=== PATIENT | female | born 1955 | race Caucasian/White ===

== ENCOUNTER → 2017-08-13 | Outpatient (CLI) | payer MEDICARE ==
--- NOTE | 2017-08-15 11:33 | Diagnostic Imaging Report ---
EXAMINATION: Digital mammogram. INDICATION: Bilateral screening This study was compared to prior exams of 10/28/2012 and 11/07/2011. At this time there are no current complaints. The current study was also evaluated with a Computer Aided Detection (CAD) system. FINDINGS: The fibroglandular tissue in both breasts is heterogeneously dense. This does limit the sensitivity of this exam. Overall, there does not appear to have been any significant change when compared to the prior study. No primary or secondary sign of malignancy is noted. IMPRESSION: There is no radiographic evidence for malignancy. FINDINGS: Examination of the right and left calcanei fails to reveal evidence of fracture or other osseous abnormality. IMPRESSION: Negative right and left calcanei. The patient should have her annual bilateral screening mammogram on schedule in July of 2018. ACR BI-RADS Category 1: Negative. Result letter will be mailed to the patient. Note: At least 10% of breast cancer is not imaged by mammography. Dictated on workstation # [id number]
== END ==
LOC: RAD 08:05
PROVIDERS: ATTEND Family Medicine
DX: Z12.31 Encounter for screening mammogram for malignant neoplasm of breast (principal)
CPT/HCPCS: 77067

== ENCOUNTER → 2017-10-01 | Outpatient (CLI) | payer MEDICARE ==
--- NOTE | 2017-10-01 13:42 | Diagnostic Imaging Report ---
PROCEDURE: MRI lumbar spine. TECHNIQUE: Multiplanar, multisequence MRI of the lumbar spine was performed without contrast. INDICATION: Chronic low back pain. Comparison is made with prior MRI of the lumbar spine from 06/07/2015. FINDINGS: There is normal lumbar lordotic curvature. Minimal retrolisthesis of L1 on L2 is again noted. There is minimal anterolisthesis of L3 on L4 and L4 on L5, similar to prior exam. The vertebral body heights and marrow signal are unremarkable. No acute compression fracture or geographic marrow lesion is seen. There is multilevel degenerative disc disease with variable disc space narrowing and desiccation, most severe at the L2-L3 level where there is more significant disc space narrowing and desiccation. This has progressed since 2016. Conus appears to be stable at the T12-L1 level. T12-L1: No central canal or neuroforaminal stenosis is identified. L1-L2: Broad-based disc/osteophyte complex is present. The central canal remains widely patent. No significant neuroforaminal stenosis is identified. L2-L3: Significant ligamentous thickening and hypertrophic facet changes are noted. There is broad-based disc/osteophyte complex. The prominent asymmetric left posterolateral disc bulge is much less prominent on today's study. Degenerative changes do result in moderate trefoil stenosis to the canal. There is mild neuroforaminal narrowing on the left with bilateral recess narrowing noted. L3-L4: Significant ligamentous thickening and hypertrophic facet changes with broad-based disc/osteophyte complex is noted, resulting in significant trefoil stenosis of the canal. There is also significant bilateral lateral recess stenosis with moderate bilateral neuroforaminal stenosis. This is similar to prior exam. L4-L5: Hypertrophic facet changes and ligamentous thickening is present. No significant neuroforaminal stenosis is seen. There is some trefoil configuration of the thecal sac, similar to prior exam. L5-S1: Central canal is widely patent. The neuroforamina are widely patent. Paraspinous tissues are unremarkable. IMPRESSION: Significant multilevel lumbar spondylosis with multilevel central canal, lateral recess and neuroforaminal stenosis described level by level above. Prominent wide based disc bulge at the L2-L3 level on prior exam from 2016 is improved when compared with prior imaging. No acute compression fracture is detected. Dictated by: Dictated on workstation # [id number]
== END ==
LOC: RAD 12:33
PROVIDERS: ATTEND Orthopaedic Surgery
DX: M48.061 Spinal stenosis, lumbar region without neurogenic claudication (principal); M99.73 Connective tissue and disc stenosis of intervertebral foramina of lumbar region; M51.26 Other intervertebral disc displacement, lumbar region; M51.36 Other intervertebral disc degeneration, lumbar region; M47.816 Spondylosis without myelopathy or radiculopathy, lumbar region
CPT/HCPCS: 72148

== ENCOUNTER 2019-02-11 13:07 | Outpatient (RCR) | payer MEDICARE | END 2019-02-11 13:45 | disposition home or self-care (01) | PROVIDERS: ATTEND Orthopaedic Surgery | DX: M54.5 Low back pain (principal) ==

== ENCOUNTER → 2019-07-13 | Outpatient (CLI) | payer MEDICARE ==
--- NOTE | 2019-07-13 11:21 | Diagnostic Imaging Report ---
EXAMINATION: Digital mammogram bilateral screening with CAD. INDICATION: Screening. COMPARISON: This study was compared to the prior exams of 08/13/2017 and 10/28/2012. PERSONAL HISTORY: At this time, there are no current complaints. FINDINGS: There are scattered fibroglandular densities in both breasts which could obscure a lesion. Overall, there does not appear to have been any significant change when compared to the prior exam. No primary or secondary sign of malignancy is noted. IMPRESSION: There is no radiographic evidence for malignancy. ACR BI-RADS Category 1: Negative. Result letter will be mailed to the patient. Note: At least 10% of breast cancer is not imaged by mammography. Dictated by: Dictated on workstation # [id number]
== END ==
LOC: RAD 07:58
PROVIDERS: ATTEND Family Medicine
DX: Z12.31 Encounter for screening mammogram for malignant neoplasm of breast (principal)
CPT/HCPCS: 77067

== ENCOUNTER → 2019-07-27 | Outpatient (CLI) | payer MEDICARE | END | disposition home or self-care (01) | LOC: PREOP 05:38 | PROVIDERS: ATTEND Internal Medicine | DX: Z01.818 Encounter for other preprocedural examination (principal) ==

== ENCOUNTER 2019-09-20 08:30 | Outpatient (CLI) | payer MEDICARE ==
[~2019-09-20] VITALS: Ht 160 cm; Wt 90.0 kg
[2019-09-20] MEDS ORDERED: LISI1TAB29 PO (11:03)
[2019-09-20] MEDS ORDERED: HYDR-4342 PO (11:03)
[2019-09-20] MEDS ORDERED: ATOR20TA66 PO (11:03)
[2019-09-20] MEDS ORDERED: GABA-486 PO (11:03)
[2019-09-20] MEDS ORDERED: ESCI20TA45 PO (11:03)
[2019-09-20] MEDS ORDERED: MEMA10TA57 PO (11:03)
[2019-09-20] MEDS ORDERED: DICL75TA2 PO (11:03)
[2019-09-20] MEDS ORDERED: DONE10TA41 PO (11:03)
== END 2019-09-20 16:13 ==
LOC: PREOP 08:30
PROVIDERS: ATTEND Internal Medicine
DX: Z01.818 Encounter for other preprocedural examination (principal); Z11.59 Encounter for screening for other viral diseases
CPT/HCPCS: 87635

== ENCOUNTER 2019-09-24 07:59 | Day surgery (SDC) | payer MEDICARE ==
--- NOTE | 2019-07-26 01:27 | HISTORY AND PHYSICAL ---
DATE OF SERVICE: COLONOSCOPY H AND P HISTORY OF PRESENT ILLNESS: The patient is a 64-year-old white female referred by Dr. Jones for screening colonoscopy. She last underwent colonoscopy 10 years ago that revealed moderate diverticular disease, but no evidence for neoplasia. One previous colonoscopy prior to that did reveal evidence for two reported polyps. She reports that she has felt well in the interim, she has been diagnosed with Alzheimer dementia and came with a significant other today. She reports no melena or bright red blood per rectum. She denies bowel habit change or change in weight, energy level has been stable. She has had no surgery since I last saw her. She underwent total knee replacement in 2010, cholecystectomy in 1979, right shoulder surgery in 2009. She had mild diverticular disease. FAMILY HISTORY: Father in his 70s secondary to a stroke, had a history of hypertension, coronary artery disease as well as hyperlipidemia and depression. Mother had a history of type 2 diabetes mellitus and passed in her 80s. She is not aware of any family history for colon cancer except for one great-aunt as she recalls. She has a sister who is alive and well with no history of colon cancer or polyposis. PAST MEDICAL HISTORY: Other than dementia is significant for hyperlipidemia and hypertension with no known history of coronary artery disease. MEDICATIONS ON ADMISSION: Include Namenda 10 mg b.i.d., Lipitor 20 mg daily, Aricept 10 mg daily, diclofenac 75 mg 1 b.i.d. p.r.n. for joint pain, Gabapentin 100 mg at bedtime, lisinopril 10 mg daily and escitalopram 10 mg daily. REVIEW OF SYSTEMS: CONSTITUTIONAL: She denies change in weight, night sweats, chills or fever. CARDIOVASCULAR: She denies chest pain, orthopnea, PND, pedal edema. PULMONARY: She denies dyspnea on exertion, cough or wheeze. SOCIAL HISTORY: She is retired with a 30+ pack year smoking history, but quit over 10 years ago. She reports occasional alcohol consumption and no more than 2 drinks per month. PHYSICAL EXAMINATION: GENERAL: Reveals a pleasant white female, appears to be in no acute distress. VITAL SIGNS: Weight 198 pounds, is up 20 pounds from an office weight from 10 years ago. Blood pressure 118/72. HEENT: Unremarkable. Mallampati 1 pharyngeal configuration. CHEST: Clear. CV: Revealed a regular rate and rhythm without murmur, S3 or S4. ABDOMEN: Soft, supple without mass, organomegaly or tenderness. No bruits are noted. EXTREMITIES: Reveal no cyanosis, clubbing or edema. ASSESSMENT AND PLAN: The patient was set up for screening colonoscopy on 07/30/2019. Prep instructions and Suprep kit were given and questions were answered. I thank you for the referral of this pleasant lady. Job ID: [id number] DocumentID: [id number] Dictated Date: 07/21/2019 15:43:53 Nuclear Equipment Design Engineer Date: 07/21/2019 16:04:17 Dictated By: OPHELIA CLAYTON MD
--- NOTE | 2019-09-23 14:40 | HISTORY AND PHYSICAL ---
DATE OF SERVICE: COLONOSCOPY HISTORY AND PHYSICAL ADDENDUM HISTORY OF PRESENT ILLNESS: The patient is a 64-year-old white female referred by Dr. Jones for screening colonoscopy. She is deemed to be of average risk as she is not aware of any family history of colon cancer or colon polyps. She had to postpone her procedure from her initial visit on 07/20 due to COVID-19. She has rescheduled and reports no interval change in health. She denies chest pain or shortness of breath. There have been no medication changes and no blood thinner therapy. PHYSICAL EXAMINATION: GENERAL: Reveals a pleasant white female in no acute distress. VITAL SIGNS: Blood pressure 118/70. CHEST: Clear. CARDIOVASCULAR: Regular rate and rhythm without murmur, S3 or S4. ABDOMEN: Nontender. ASSESSMENT: The patient is set up for screening colonoscopy on 09/30. She has her prep instructions and prescription for a Suprep. No contraindications to proceeding with planned procedure. Job ID: [id number] DocumentID: [id number] Dictated Date: 09/23/2019 14:05:34 Strap Buckler Date: 09/23/2019 14:28:43 Dictated By: OPHELIA CLAYTON MD
[~2019-09-24] VITALS: Ht 160 cm; Wt 90.0 kg
[2019-09-24] VITALS (17 sets, daily range): BP systolic 107–174; BP diastolic 50–97
[~2019-09-24 07:59] MED LIST: ATOR20TA66 PO; DICL75TA2 PO; DONE10TA41 PO; ESCI20TA45 PO; GABA-486 PO; HYDR-4342 PO; LISI1TAB29 PO; MEMA10TA57 PO
[2019-09-24] MEDS ORDERED: D5 LR IV SOLUTION 1,000 ML IV ONE (08:01)
[2019-09-24] MEDS ORDERED: D5 LR IV SOLUTION 1,000 ML IV STA (08:09)
[2019-09-24] MEDS ORDERED: fentaNYL INJECTION 100 MCG/2 ML AMP IVP ONE (08:15)
[2019-09-24] MEDS ORDERED: LIDOCAINE JELLY 2% 6 ML SYRINGE MM PRN (08:15)
--- OUTSIDE RECORDS SUMMARY | 2019-09-24 08:34 | XMS REPORT | Clinical Summary ---
Author Author [facility] Organization [facility] Address Unknown Phone Unavailable Care Team Providers Care Certified Massage Therapist Name Role Phone PCP Unavailable Allergies Not on File Medications Not on file Active Problems Not on file Social History Date Tobacco Use Types Packs/Day Years Used Never Assessed Sex Assigned at Date Recorded Not on file Industry Job Start Date Occupation Not on file Not on file Not on file Travel End Travel History Travel Start No recent travel history available. Last Filed Vital Signs Not on file Plan of Treatment Not on file Results Not on filefrom Last 3 Months
--- OUTSIDE RECORDS SUMMARY | 2019-09-24 08:34 | XMS REPORT | Encounter Summary ---
Author Author [facility] Organization [facility] Address Unknown Phone Unavailable Care Team Providers Care Gravity Prospecting Operator Name Role Phone PCP Unavailable Encounter Details Care Team Description Date Type Department Kris Salazar MD Retired 06/07/1998 [facility] Encounter Social History Date Tobacco Use Types Packs/Day Years Used Never Assessed Sex Assigned at Date Recorded Not on file Industry Job Start Date Occupation Not on file Not on file Not on file Travel End Travel History Travel Start No recent travel history available. documented as of this encounter Plan of Treatment Not on filedocumented as of this encounter Visit Diagnoses Not on filedocumented in this encounter
--- OUTSIDE RECORDS SUMMARY | 2019-09-24 08:35 | XMS REPORT | CCD ---
Author Author Marjorie Jones Organization Tamara Jones MD, [facility] Address [address] [place] [address] Phone Care Team Providers Care Vet Tech Name Role Phone PP Unavailable CCM Unavailable Summary Purpose Interface Exchange Insurance Providers Payer name Policy type / Coverage type Covered alliance party ID Effective Begin Date Effective End Date [place] [employer] Medicare Part B [id number] Unknown [facility] icare Part B [id number] Un known Family history Mother Diagnosis Age At Onset Diabetes mellitus Type 2 Unknown Father Diagnosis Age At Onset Depression Unknown Hyperlipidemia Unknown Hypertension Unknown Stroke Unknown Coronary Artery Disease Unknown Social History Social History Element Codes Description Effective Dates Marital status Unknown M arried Walter 11/03/2014 Number of children Unknown 0 11/03/2014 Employment Unknown Curre ntly unemployed 11/03/[address]: 8826421 Quit over 10 years ago 199911/03/2014 Alcohol history Unknown occasionally drinks alcohol 2 per month 11/03/2014 Allergies, Adverse Reactions, Alerts Substance Reaction Codes Entered Date Inactivated Date Status * NO KNOWN DRUG DAVID RGIES Unknown 11/03/2014 No Inactive Date Active Past Medical History Illness Codes Condition Status Onset Date Resolved Date Actinic keratosis ICD-9: 701.1 ICD-10: L57.0 Active 10/21/2018 Unknown Essential (primary) hypertension ICD-9: 401.9 ICD-10: I10 Active 11/02/2014 Unknown Low back pain ICD-9: 724.2 ICD-10: M54.5 Active 10/11/2015 Unknown Pain in right hip ICD-9: 719.45 ICD-10: M25.551 Active 04/16/2016 Unknown Acute bronchitis, un specified ICD-9: 466.0 ICD-10: J20.9 Active 09/08/2018 Unknown Cough ICD-9: 786.2 ICD-10: R05 Active 02/18/2018 Unknown Essential (primary) hypertension ICD-9: 401.1 ICD-10: I10 Active 09/25/2016 Unknown Acute bronchitis due to other specified organisms ICD-9: 466.0 ICD-10: J20.8 Active 02/18/2018 Unknown Mixed hyperlipidemia ICD-9: 272.4 ICD-10: E78.2 Active 11/02/2014 Unknown Spinal stenosis, lum bosacral region ICD-9: 724.02 ICD-10: M48.07 Active 09/09/2017 Unknown Pain in left hip ICD-9: 719.45 ICD-10: M25.552 Active 12/05/2016 Unknown Sciatica, left side ICD- 9: 724.3 ICD-10: M54.32 Active 12/05/2016 Unknown Sacroiliitis, not el sewhere classified ICD-9: 720.2 ICD-10: M46.1 Active 12/05/2016 Unknown Actinic keratosis ICD-9: 702.0 ICD-10: L57.0 Active 10/22/2016 Unknown Encounter for screen ing mammogram for malignant neoplasm of breast ICD-9: V76.12 ICD-10: Z12.31 Active 09/25/2016 Unknown Major depressive dis order, recurrent, mild ICD-9: 296.31 ICD-10: F33.0 Active 04/17/2016 Unknown Mixed hyperlipidemia ICD-9: 272.2 ICD-10: E78.2 Active 09/25/2016 Unknown Major depressive dis order, recurrent, moderate ICD-9: 296.32 ICD-10: F33.1 Active 05/29/2016 Unknown Encounter for genera l adult medical examination with abnormal findings ICD-9: V70.0 ICD-10: Z00.01 Active 04/18/2016 Unknown Vitamin B12 deficien cy anemia, unspecified ICD-9: 281.1 ICD-10: D51.9 Active 07/10/2015 Unknown Sciatica Unknown Active 05/16/2015 Unknow n Sciatica, right side ICD-9: 724.3 ICD-10: M54.31 Active 05/15/2015 Unknown Hyperlipidemia Unknown Active 11/03/2014 Unknow n Hypertension Unknown Active 11/03/2014 Unknow n Osteoarthritis Unknown Active 11/03/2014 Unknow n ESSENTIAL HYPERTENSION ICD-9: 401.9 Active 11/02/2014 Unknown HYPERLIPIDEMIA ICD-9: 272.4 Active 11/02/2014 Unknown OSTEOARTH NOS-UNSPEC ICD-9: 715.90 Active 11/02/2014 Unknown Sacroiliitis ICD-9: 720.2 Active 11/02/2014 Unknown Problems Condition Codes Effectiv e Dates Condition Status Actinic keratosis ICD-9: 701.1 ICD-10: L57.0 10/21/2018 Active Essential (primary) hypertension ICD-9: 401.9 ICD-10: I10 11/02/2014 Active Low back pain ICD-9: 724.2 ICD-10: M54.5 10/11/2015 Active Pain in right hip ICD-9: 719.45 ICD-10: M25.551 04/16/2016 Active Acute bronchitis, un specified ICD-9: 466.0 ICD-10: J20.9 09/08/2018 Active Cough ICD-9: 786.2 ICD-10: R05 02/18/2018 Active Essential (primary) hypertension ICD-9: 401.1 ICD-10: I10 09/25/2016 Active Acute bronchitis due to other specified organisms ICD-9: 466.0 ICD-10: J20.8 02/18/2018 Active Mixed hyperlipidemia ICD-9: 272.4 ICD-10: E78.2 11/02/2014 Active Spinal stenosis, lum bosacral region ICD-9: 724.02 ICD-10: M48.07 09/09/2017 Active Pain in left hip ICD-9: 719.45 ICD-10: M25.552 12/05/2016 Active Sciatica, left side ICD- 9: 724.3 ICD-10: M54.32 12/05/2016 Active Sacroiliitis, not el sewhere classified ICD-9: 720.2 ICD-10: M46.1 12/05/2016 Active Actinic keratosis ICD-9: 702.0 ICD-10: L57.0 10/22/2016 Active Encounter for screen ing mammogram for malignant neoplasm of breast ICD-9: V76.12 ICD-10: Z12.31 09/25/2016 Active Major depressive dis order, recurrent, mild ICD-9: 296.31 ICD-10: F33.0 04/17/2016 Active Mixed hyperlipidemia ICD-9: 272.2 ICD-10: E78.2 09/25/2016 Active Major depressive dis order, recurrent, moderate ICD-9: 296.32 ICD-10: F33.1 05/29/2016 Active Encounter for genera l adult medical examination with abnormal findings ICD-9: V70.0 ICD-10: Z00.01 04/18/2016 Active Vitamin B12 deficien cy anemia, unspecified ICD-9: 281.1 ICD-10: D51.9 07/10/2015 Active Sciatica Unknown 05/16/2015 Active Sciatica, right side ICD-9: 724.3 ICD-10: M54.31 05/15/2015 Active Hyperlipidemia Unknown 11/03/2014 Active Hypertension Unknown 11/03/2014 Active Osteoarthritis Unknown 11/03/2014 Active ESSENTIAL HYPERTENSION ICD-9: 401.9 11/02/2014 Active HYPERLIPIDEMIA ICD-9: 272.4 11/02/2014 Active OSTEOARTH NOS-UNSPEC ICD-9: 715.90 11/02/2014 Active Sacroiliitis ICD-9: 720.2 11/02/2014 Active Medications Medication Codes Instruc tions Start Date Stop Date Sta tus Fill Instructions gabapentin 100 mg ca psule RxNorm: 603733 Capsule(s) TAKE 1 CAP LESLIE BY MOUTH ONCE DAILY IN THE MORNING 12/22/2018 No Stop Date Active gabapentin 100 mg ca psule RxNorm: 037731 TAKE 1 CAPSULE BY SCOTT TH ONCE DAILY IN THE MORNING 10/30/2018 12/21/2018 Inactive diclofenac sodium 75 mg tablet,delayed release RxNorm: 615593 TAKE 1 TABLET BY MOUT H TWICE DAILY 10/28/2018 No Stop Date Active Efudex 5 % topical c ream RxNorm: 931109 1 Application TOP BID apply from upper arm to wrist [id number], then change to other arm, then 10 days later do right leg then left leg 10/21/2018 11/19/2018 Inactive prednisone 20 mg tablet RxNorm: 481518 2 Tablet(s) PO daily 09/08/2018 09/12/2018 Inactive START TOMORROW 09/09 cefdinir 300 mg capsule RxNorm: 532958 1 Capsule(s) PO BID 09/08/2018 09/14/2018 Inactive START TOMORROW Ventolin HFA 90 mcg/ actuation aerosol inhaler RxNorm: 773761 2 Puff(s) INH Q4 PRN 09/08/2018 11/06/2018 In active Zithromax Z-Feng 250 mg tablet RxNorm: 381679 1 Tablet(s) PO UD 09/08/2018 09/12/2018 Inactive START TODAY ceftriaxone 500 mg s olution for injection RxNorm: 5799075 Inj 09/08/2018 09/08/2018 Inactive Kenalog 40 mg/mL christoph pension for injection RxNorm: 3916889 Milliliter(s) Inj 09/08/2018 09/08/2018 In active gabapentin 100 mg ca psule RxNorm: 707428 TAKE 1 CAPSULE BY SCOTT TH ONCE DAILY IN THE MORNING 08/10/2018 10/29/2018 Inactive lisinopril 10 mg-hyd rochlorothiazide 12.5 mg tablet RxNorm: 700961 TAKE 1 TABLET BY MOUTH ONCE DAILY 07/01/2018 No Stop Date Active hydrocodone 7.5 mg-a cetaminophen 325 mg tablet RxNorm: 871671 1 Tablet(s) PO TID 06/29/2018 07/28/2018 In active memantine 10 mg tablet RxNorm: 946522 1 Tablet(s) PO BID 06/18/2018 01/13/2019 Active Aricept 10 mg tablet RxNorm: 405899 1/2 tab daily x 2 weeks then increase to 1 Tablet(s) PO daily thereafter 06/18/2018 08/11/2019 Active escitalopram 10 mg t ablet RxNorm: 457163 TAKE ONE TABLET BY MO UT ONCE DAILY IN THE EVENING 06/18/2018 No Stop Date Active gabapentin 100 mg ca psule RxNorm: 370750 TAKE 1 CAPSULE BY SCOTT TH ONCE DAILY IN THE MORNING 06/11/2018 08/09/2018 Inactive Lipitor 20 mg tablet RxNorm: 843401 TAKE ONE TABLET BY MOUTH THREE TIMES [facility] 05/06/2018 No Stop Date Active hydrocodone 7.5 mg-a cetaminophen 325 mg tablet RxNorm: 135597 1 Tablet(s) PO TID 04/30/2018 05/29/2018 In active hydrocodone 7.5 mg-a cetaminophen 325 mg tablet RxNorm: 490324 1 Tablet(s) PO TID 03/26/2018 04/24/2018 In active Ventolin HFA 90 mcg/ actuation aerosol inhaler RxNorm: 668940 2 INH TID x 1 week th en twice daily x 5 days then as needed. 02/18/2018 04/18/2018 Inactive plea se give pt a spacer cefdinir 300 mg capsule RxNorm: 503085 1 Capsule(s) PO BID 02/18/2018 02/24/2018 Inactive prednisone 20 mg tablet RxNorm: 002852 2 Tablet(s) PO daily 02/18/2018 02/22/2018 Inactive memantine 10 mg tablet RxNorm: 218978 1/2 tab nightly x1wk then 1/2tab bid x1w k then 1/2tab am and 1tab hs x1wk then 1 Tablet(s) PO BID 01/08/2018 06/17/2018 Inactive hydrocodone 7.5 mg-a cetaminophen 325 mg tablet RxNorm: 314176 1 Tablet(s) PO TID 01/08/2018 02/06/2018 In active gabapentin 100 mg ca psule RxNorm: 117764 TAKE [address] [facility] ONCE DAILY IN THE MORNING 12/24/2017 06/10/2018 Inactive hydrocodone 7.5 mg-a cetaminophen 325 mg tablet RxNorm: 708133 1-2 Tablet(s) PO Q6 a s needed 12/01/2017 12/22/2017 Inactive diclofenac sodium 75 mg tablet,delayed release RxNorm: 273717 TAKE ONE TABLET BY [facility] TWICE DAILY 11/10/2017 10/27/2018 Inactive hydrocodone 7.5 mg-a cetaminophen 325 mg tablet RxNorm: 455937 1-2 Tablet(s) PO Q6 a s needed 10/17/2017 11/07/2017 Inactive hydrocodone 7.5 mg-a cetaminophen 325 mg tablet RxNorm: 527647 1-2 Tablet(s) PO Q6 a s needed 09/01/2017 09/22/2017 Inactive hydrocodone 7.5 mg-a cetaminophen 325 mg tablet RxNorm: 612219 1-2 Tablet(s) PO Q6 a s needed 08/25/2017 08/31/2017 Inactive hydrocodone 7.5 mg-a cetaminophen 325 mg tablet RxNorm: 676136 1-2 Tablet(s) PO Q6 a s needed 07/14/2017 08/04/2017 Inactive lisinopril 10 mg-hyd rochlorothiazide 12.5 mg tablet RxNorm: 618282 Tablet(s) TAKE ONE TABLET BY MOUTH ONCE DAILY 07/14/2017 06/30/2018 Inactive gabapentin 100 mg ca psule RxNorm: 337429 1 Capsule(s) PO QAM 06/23/2017 12/19/2017 Inactive hydrocodone 7.5 mg-a cetaminophen 325 mg tablet RxNorm: 618693 1-2 Tablet(s) PO Q6 a s needed 05/20/2017 06/10/2017 Inactive Lipitor 20 mg tablet RxNorm: 819433 1 Tablet(s) PO TIW 05/13/2017 05/05/2018 Inactive escitalopram 10 mg t ablet RxNorm: 036665 1 Tablet(s) PO QPM 05/13/2017 05/07/2018 Inactive escitalopram 10 mg t ablet RxNorm: 154582 1 Tablet(s) PO QPM 04/16/2017 05/12/2017 Inactive lisinopril 10 mg-hyd rochlorothiazide 12.5 mg tablet RxNorm: 859687 TAKE ONE TABLET BY MOUTH ONCE DAILY 04/15/2017 07/13/2017 Inactive escitalopram 10 mg t ablet RxNorm: 595558 1 Tablet(s) PO QPM 04/09/2017 04/15/2017 Inactive hydrocodone 7.5 mg-a cetaminophen 325 mg tablet RxNorm: 620168 1-2 Tablet(s) PO Q6 a s needed 03/17/2017 04/07/2017 Inactive hydrocodone 7.5 mg-a cetaminophen 325 mg tablet RxNorm: 392910 1-2 Tablet(s) PO Q6 a s needed 12/27/2016 01/17/2017 Inactive gabapentin 100 mg ca psule RxNorm: 449234 1 Capsule(s) PO QAM 12/16/2016 06/13/2017 Inactive prednisone 20 mg tablet RxNorm: 674155 2 Tablet(s) PO daily 12/06/2016 12/05/2016 Inactive prednisone 20 mg tablet RxNorm: 764347 2 Tablet(s) PO daily 12/06/2016 12/15/2016 Inactive Kenalog 40 mg/mL christoph pension for injection RxNorm: 8261301 1 Milliliter(s) Inj 12/05/2016 12/05/2016 In active diclofenac sodium 75 mg tablet,delayed release RxNorm: 950987 1 Tablet(s) PO BID 10/30/2016 10/24/2017 In active hydrocodone 7.5 mg-a cetaminophen 325 mg tablet RxNorm: 241575 1-2 Tablet(s) PO Q6 a s needed 10/23/2016 11/13/2016 Inactive hydrocodone 7.5 mg-a cetaminophen 325 mg tablet RxNorm: 903791 1-2 Tablet(s) PO Q6 a s needed 08/16/2016 09/06/2016 Inactive lisinopril 10 mg-hyd rochlorothiazide 12.5 mg tablet RxNorm: 917044 TAKE ONE TABLET BY MOUTH ONCE DAILY 06/07/2016 04/14/2017 Inactive Lipitor 40 mg tablet RxNorm: 696694 1 Tablet(s) PO TIW 05/31/2016 05/01/2017 Inactive Lipitor 20 mg tablet RxNorm: 899381 1 Tablet(s) PO TIW 05/29/2016 05/30/2016 Inactive hydrocodone 7.5 mg-a cetaminophen 325 mg tablet RxNorm: 520734 1-2 Tablet(s) PO Q6 a s needed 05/23/2016 06/13/2016 Inactive escitalopram 10 mg t ablet RxNorm: 205313 1 Tablet(s) PO QPM st art at 1/2 pill nightly x 1wk then a full pill thereafter 04/17/2016 04/08/2017 Inactive hydrocodone 7.5 mg-a cetaminophen 325 mg tablet RxNorm: 666871 1-2 Tablet(s) PO Q6 a s needed 02/28/2016 03/20/2016 Inactive hydrocodone 7.5 mg-a cetaminophen 325 mg tablet RxNorm: 827972 1-2 Tablet(s) PO Q6 a s needed 12/04/2015 12/25/2015 Inactive diclofenac sodium 75 mg tablet,delayed release RxNorm: 832579 1 Tablet(s) PO BID 10/23/2015 10/16/2016 In active hydrocodone 7.5 mg-a cetaminophen 325 mg tablet RxNorm: 270922 1-2 Tablet(s) PO Q6 a s needed 09/12/2015 12/03/2015 Inactive promethazine 25 mg t ablet RxNorm: 077788 1 Tablet(s) PO Q6 as needed 08/30/2015 No Stop Date Active lisinopril 10 mg-hyd rochlorothiazide 12.5 mg tablet RxNorm: 679357 1 Tablet(s) PO daily 05/09/2015 05/02/2016 Inactive hydrocodone 7.5 mg-a cetaminophen 325 mg tablet RxNorm: 592600 1-2 Tablet(s) PO Q6 a s needed 04/17/2015 09/11/2015 Inactive lisinopril 10 mg-hyd rochlorothiazide 12.5 mg tablet RxNorm: 186939 1 Tablet(s) PO daily 01/31/2015 05/08/2015 Inactive hydrocodone 7.5 mg-a cetaminophen 325 mg tablet RxNorm: 293834 1-2 Tablet(s) PO Q6 a s needed 01/18/2015 04/16/2015 Inactive diclofenac sodium 75 mg tablet,delayed release RxNorm: 535628 1 Tablet(s) PO BID 01/18/2015 10/14/2015 In active Voltaren 1 % topical gel RxNorm: 316279 4 Gram(s) TOP QID chelsie ly to sacroiliac joint 11/03/2014 05/15/2015 In active lisinopril 10 mg-hyd rochlorothiazide 12.5 mg tablet RxNorm: 367186 1 Tablet(s) PO daily 11/03/2014 12/02/2014 Inactive B-12 Plus sublingual RxNorm: 96136 sublingual No Start Date Active amoxicillin 500 mg c apsule RxNorm: 343624 4 Capsule(s) PO as do ctor directed 1 hours before appt No Start Date Active promethazine 25 mg t ablet RxNorm: 362931 1 Tablet(s) PO Q6 as needed No Start Date 08/29/2015 Inactive diclofenac sodium 75 mg tablet,delayed release RxNorm: 193486 1 Tablet(s) PO BID No Start Date 01/17/2015 Inactive hydrocodone 7.5 mg-a cetaminophen 325 mg tablet RxNorm: 869801 1-2 Tablet(s) PO Q6 a s needed No Start Date 01/17/2015 Inactive gabapentin 300 mg ca psule RxNorm: 695221 1 Capsule(s) PO QHS No Start Date 12/21/2018 Inactive Crestor 5 mg tablet RxNorm: 838642 1 Tablet(s) PO 3 x week No Start Date 05/28/2016 Inactive Medication Administered Medication Codes Instruc tions Start Date Status ceftriaxone 500 mg solution for injection RxNorm: 6860502 09/08/2018 No longer A ctive Kenalog 40 mg/mL suspension for injection RxNorm: 2959927 Milliliter 09/08/2018 No longer Active Kenalog 40 mg/mL suspension for injection RxNorm: 9245198 1Milliliter 12/05/2016 N o longer Active Immunizations No Immunization data Assessments Condition Codes Effectiv e Dates Essential (primary) hypertension ICD -10: I10 ICD-9: 401.9 10/21/2018 Actinic keratosis ICD-10: L57.0 ICD-9: 701.1 10/21/2018 Pain in right hip ICD-10: M25.551 ICD-9: 719.45 10/21/2018 Low back pain ICD-10: M54.5 ICD-9: 724.2 10/21/2018 Acute bronchitis, unspecified ICD-10 : J20.9 ICD-9: 466.0 09/08/2018 Cough ICD-10: R05 ICD-9: 786.2 09/08/2018 Essential (primary) hypertension ICD -10: I10 ICD-9: 401.1 06/18/2018 Acute bronchitis due to other specified organisms ICD-10: J20.8 ICD-9: 466.0 02/18/2018 Spinal stenosis, lumbosacral region ICD-10: M48.07 ICD-9: 724.02 01/08/2018 Mixed hyperlipidemia ICD-10: E78.2 ICD-9: 272.4 01/08/2018 Pain in left hip ICD-10: M25.552 ICD-9: 719.45 03/25/2017 Sciatica, left side ICD-10: M54.32 ICD-9: 724.3 12/16/2016 Sacroiliitis, not elsewhere classified ICD-10: M46.1 ICD-9: 720.2 12/05/2016 Actinic keratosis ICD-10: L57.0 ICD-9: 702.0 10/22/2016 Encounter for screening mammogram for ma lignant neoplasm of breast ICD-10: Z12.31 ICD-9: V76.12 09/25/2016 Major depressive disorder, recurrent, mild ICD-10: F33.0 ICD-9: 296.31 09/25/2016 Mixed hyperlipidemia ICD-10: E78.2 ICD-9: 272.2 09/25/2016 Major depressive disorder, recurrent, moderate ICD-10: F33.1 ICD-9: 296.32 05/29/2016 Encounter for general adult medical exam ination with abnormal findings ICD-10: Z00.01 ICD-9: V70.0 04/19/2016 Vitamin B12 deficiency anemia, unspecified ICD-10: D51.9 ICD-9: 281.1 07/11/2015 Sciatica, right side ICD-10: M54.31 ICD-9: 724.3 05/16/2015 ESSENTIAL HYPERTENSION ICD-9: 401.9 11/03/2014 Sacroiliitis ICD-9: 720.2 11/03/2014 HYPERLIPIDEMIA ICD-9: 272.4 11/03/2014 OSTEOARTH NOS-UNSPEC ICD-9: 715.90 11/03/2014 Reason For Visit Reason For Visit Effective Dates Notes hypertension 10/21/2018 cough 09/08/2018 hypertension 06/18/2018 cough 02/18/2018 hypertension 01/08/2018 hypertension 09/09/2017 hypertension 03/25/2017 sciatica 12/16/2016 ongo ing sciatica 12/05/2016 skin lesion 10/22/2016 hypertension 09/25/2016 hypertension 05/29/2016 Annual Medicare Wellness Exam 04/19/2016 hypertension 04/17/2016 back pain 10/12/2015 back pain 07/11/2015 back pain 05/16/2015 hypertension 11/03/2014 Results Observation Observation Code Item Item Code Result Date Comp Metabolic Rbi445 NA 140 mEq/L 01/14/2018 Comp Metabolic Oae504 K 3.8 mEq/L 01/14/2018 Comp Metabolic Ere079 CL 101 mEq/L 01/14/2018 Comp Metabolic Gbk225 CO2 30.0 mEq/L 01/14/2018 Comp Metabolic Cer417 AN ION GAP 13 01/14/2018 Comp Metabolic Yxi156 GL UCOSE 89 mg/dL 01/14/2018 Comp Metabolic Zwh097 Cr eat 1.0 mg/dL 01/14/2018 Comp Metabolic Fkv613 eG FR 63 ml/min/1.73m2 01/14 Comp Metabolic Akm322 BUN 16 mg/dL 01/14/2018 Comp Metabolic Rwo293 B/ C Ratio 16.8 Ratio 01/14/2018 Comp Metabolic Kbt025 CA LCIUM 9.2 mg/dL 01/14/2018 Comp Metabolic Pjk008 AL K PHOS 88 U/L 01/14/2018 Comp Metabolic Fxy109 T(SGOT) 13 U/L 01/14/2018 Comp Metabolic Hxw785 AL T(SGPT) 9 U/L 01/14/2018 Comp Metabolic Ben591 BI LI T 0.5 mg/dL 01/14/2018 Comp Metabolic Tud867 AL BUMIN 4.0 g/dL 01/14/2018 Comp Metabolic Yve368 TP RO 6.5 g/dL 01/14/2018 Comp Metabolic Bmf363 GL OB 2.5 g/dL 01/14/2018 Comp Metabolic Oek177 A/ G Ratio 1.6 Ratio 01/14/2018 Comp Metabolic Hqj344 Os mo 280 mOsmo 01/14/2018 Tsh Ord6 TSH (3rd IS) 2.04 uIU/mL 01/14/2018 Lipid Ord30 CHOL 193 mg/dL 01/14/2018 Lipid Ord30 HDL 40.0 mg/dl 01/14/2018 Lipid Ord30 TRIG 185 mg/dL 01/14/2018 Lipid Ord30 LDL 116 mg/dL 01/14/2018 Lipid Ord30 C/HDL 4.8 Ratio 01/14/2018 Cbc With Differential Ord2 WBC 10.84 K/ul 01/14/2018 Cbc With Differential Ord2 RBC 4.51 M/ul 01/14/2018 Cbc With Differential Ord2 HGB 14.2 g/dl 01/14/2018 Cbc With Differential Ord2 HCT 42.1 % 01/14/2018 Cbc With Differential Ord2 Neut% 56.3 % 01/14/2018 Cbc With Differential Ord2 MCV 93.3 fl 01/14/2018 Cbc With Differential Ord2 Lymph% 31.7 % 01/14/2018 Cbc With Differential Ord2 MCH 31.5 pg 01/14/2018 Cbc With Differential Ord2 Swift% 8.5 % 01/14/2018 Cbc With Differential Ord2 MCHC 33.7 pg 01/14/2018 Cbc With Differential Ord2 Eos% 3.1 % 01/14/2018 Cbc With Differential Ord2 PLT 280 K/ul 01/14/2018 Cbc With Differential Ord2 Baso% 0.4 % 01/14/2018 Cbc With Differential Ord2 Neut ABS# 6.10 K/ul 01/14/2018 Cbc With Differential Ord2 RDW 13.1 % 01/14/2018 Cbc With Differential Ord2 Lymph ABS# 3.44 K/ul 01/14/2018 Cbc With Differential Ord2 Swift ABS# 0.9 K/ul 01/14/2018 Cbc With Differential Ord2 Eos ABS# 0.3 K/ul 01/14/2018 Cbc With Differential Ord2 Baso ABS# 0.0 K/ul 01/14/2018 Cbc With Differential Ord2 WBC 5.41 K/ul 09/10/2017 Cbc With Differential Ord2 RBC 4.78 M/ul 09/10/2017 Cbc With Differential Ord2 HGB 14.8 g/dl 09/10/2017 Cbc With Differential Ord2 HCT 44.7 % 09/10/2017 Cbc With Differential Ord2 Neut% 54.4 % 09/10/2017 Cbc With Differential Ord2 MCV 93.5 fl 09/10/2017 Cbc With Differential Ord2 Lymph% 33.6 % 09/10/2017 Cbc With Differential Ord2 MCH 31.0 pg 09/10/2017 Cbc With Differential Ord2 Swift% 9.2 % 09/10/2017 Cbc With Differential Ord2 Eos% 2.4 % 09/10/2017 Cbc With Differential Ord2 MCHC 33.1 pg 09/10/2017 Cbc With Differential Ord2 Baso% 0.4 % 09/10/2017 Cbc With Differential Ord2 PLT 310 K/ul 09/10/2017 Cbc With Differential Ord2 RDW 13.5 % 09/10/2017 Cbc With Differential Ord2 Neut ABS# 2.94 K/ul 09/10/2017 Cbc With Differential Ord2 Lymph ABS# 1.82 K/ul 09/10/2017 Cbc With Differential Ord2 Swift ABS# 0.5 K/ul 09/10/2017 Cbc With Differential Ord2 Eos ABS# 0.1 K/ul 09/10/2017 Cbc With Differential Ord2 Baso ABS# 0.0 K/ul 09/10/2017 Tsh Ord6 TSH (3rd IS) 1.22 uIU/mL 09/10/2017 Comp Metabolic Flf549 NA 140 mEq/L 09/10/2017 Comp Metabolic Ykh453 K 4.2 mEq/L 09/10/2017 Comp Metabolic Ymr354 CL 107 mEq/L 09/10/2017 Comp Metabolic Nhv895 CO2 25.0 mEq/L 09/10/2017 Comp Metabolic Esx593 AN ION GAP 12 09/10/2017 Comp Metabolic Iew442 GL UCOSE 84 mg/dL 09/10/2017 Comp Metabolic Vki529 Cr eat 0.7 mg/dL 09/10/2017 Comp Metabolic Kwp923 eG FR 85 ml/min/1.73m2 09/10 Comp Metabolic Ymq602 BUN 11 mg/dL 09/10/2017 Comp Metabolic Zbr391 B/ C Ratio 15.1 Ratio 09/10/2017 Comp Metabolic Mok327 CA LCIUM 9.1 mg/dL 09/10/2017 Comp Metabolic Qje856 AL K PHOS 61 U/L 09/10/2017 Comp Metabolic Psr793 T(SGOT) 38 U/L 09/10/2017 Comp Metabolic Fgq394 AL T(SGPT) 24 U/L 09/10/2017 Comp Metabolic Rbl337 BI LI T 0.5 mg/dL 09/10/2017 Comp Metabolic Iev078 AL BUMIN 4.0 g/dL 09/10/2017 Comp Metabolic Keb465 TP RO 6.6 g/dL 09/10/2017 Comp Metabolic Wrt002 GL OB 2.6 g/dL 09/10/2017 Comp Metabolic Gwb287 A/ G Ratio 1.6 Ratio 09/10/2017 Comp Metabolic Prh771 Os mo 278 mOsmo 09/10/2017 Lipid Ord30 CHOL 148 mg/dL 09/10/2017 Lipid Ord30 HDL 41.0 mg/dl 09/10/2017 Lipid Ord30 TRIG 66 mg/dL 09/10/2017 Lipid Ord30 LDL 94 mg/dL 09/10/2017 Lipid Ord30 C/HDL 3.6 Ratio 09/10/2017 Tsh Ord6 hTSH II 1.57 uIU/mL 09/25/2016 Comp Metabolic Inz262 NA 139 mEq/L 09/25/2016 Comp Metabolic Tun688 K 4.5 mEq/L 09/25/2016 Comp Metabolic Bdx775 CL 102 mEq/L 09/25/2016 Comp Metabolic Bsk662 CO2 29.0 mEq/L 09/25/2016 Comp Metabolic Scc073 AN ION GAP 13 09/25/2016 Comp Metabolic Ile545 GL UCOSE 84 mg/dL 09/25/2016 Comp Metabolic Hjh999 Cr eat 0.9 mg/dL 09/25/2016 Comp Metabolic Hdy994 eG FR 70 ml/min/1.73m2 09/25 Comp Metabolic Gub830 BUN 21 mg/dL 09/25/2016 Comp Metabolic Dqd698 B/ C Ratio 24.1 Ratio 09/25/2016 Comp Metabolic Ugq857 CA LCIUM 9.2 mg/dL 09/25/2016 Comp Metabolic Egq541 AL K PHOS 89 U/L 09/25/2016 Comp Metabolic Zzr887 T(SGOT) 19 U/L 09/25/2016 Comp Metabolic Rjy590 AL T(SGPT) 19 U/L 09/25/2016 Comp Metabolic Tmr787 BI LI T 0.5 mg/dL 09/25/2016 Comp Metabolic Isk824 AL BUMIN 4.1 g/dL 09/25/2016 Comp Metabolic Vqy683 TP RO 6.5 g/dL 09/25/2016 Comp Metabolic Zxy863 GL OB 2.4 g/dL 09/25/2016 Comp Metabolic Cpl706 A/ G Ratio 1.7 Ratio 09/25/2016 Comp Metabolic Vqk038 Os mo 280 mOsmo 09/25/2016 Cbc With Differential Ord2 WBC 9.34 K/ul 09/25/2016 Cbc With Differential Ord2 RBC 4.44 M/ul 09/25/2016 Cbc With Differential Ord2 HGB 14.3 g/dl 09/25/2016 Cbc With Differential Ord2 HCT 42.0 % 09/25/2016 Cbc With Differential Ord2 Neut% 58.4 % 09/25/2016 Cbc With Differential Ord2 MCV 94.6 fl 09/25/2016 Cbc With Differential Ord2 Lymph% 30.4 % 09/25/2016 Cbc With Differential Ord2 Swift% 7.7 % 09/25/2016 Cbc With Differential Ord2 MCH 32.2 pg 09/25/2016 Cbc With Differential Ord2 MCHC 34.0 pg 09/25/2016 Cbc With Differential Ord2 Eos% 3.2 % 09/25/2016 Cbc With Differential Ord2 PLT 264 K/ul 09/25/2016 Cbc With Differential Ord2 Baso% 0.3 % 09/25/2016 Cbc With Differential Ord2 Neut ABS# 5.45 K/ul 09/25/2016 Cbc With Differential Ord2 RDW 13.1 % 09/25/2016 Cbc With Differential Ord2 Lymph ABS# 2.84 K/ul 09/25/2016 Cbc With Differential Ord2 Swift ABS# 0.7 K/ul 09/25/2016 Cbc With Differential Ord2 Eos ABS# 0.3 K/ul 09/25/2016 Cbc With Differential Ord2 Baso ABS# 0.0 K/ul 09/25/2016 Lipid Ord30 CHOL 185 mg/dL 09/25/2016 Lipid Ord30 HDL 54.0 mg/dl 09/25/2016 Lipid Ord30 TRIG 94 mg/dL 09/25/2016 Lipid Ord30 LDL 112 mg/dL 09/25/2016 Lipid Ord30 C/HDL 3.4 Ratio 09/25/2016 Lipid Ord30 CHOL 283 mg/dL 04/19/2016 Lipid Ord30 HDL 56.0 mg/dl 04/19/2016 Lipid Ord30 TRIG 115 mg/dL 04/19/2016 Lipid Ord30 LDL 204 mg/dL 04/19/2016 Lipid Ord30 C/HDL 5.1 Ratio 04/19/2016 Comp Metabolic [id number] NA 135 mEq/L 04/19/2016 Comp Metabolic [id number] K 4.2 mEq/L 04/19/2016 Comp Metabolic [id number] CL 97 mEq/L 04/19/2016 Comp Metabolic [id number] CO2 28.0 mEq/L 04/19/2016 Comp Metabolic Etm845 AN ION GAP 14 04/19/2016 Comp Metabolic Xon335 GL UCOSE 89 mg/dL 04/19/2016 Comp Metabolic Mbf948 Cr eat 0.8 mg/dL 04/19/2016 Comp Metabolic Vnh781 eG FR 77 ml/min/1.73m2 04/19 Comp Metabolic Kqa351 BUN 17 mg/dL 04/19/2016 Comp Metabolic Zhz067 B/ C Ratio 21.3 Ratio 04/19/2016 Comp Metabolic Hal561 CA LCIUM 9.8 mg/dL 04/19/2016 Comp Metabolic Gad046 AL K PHOS 89 U/L 04/19/2016 Comp Metabolic Fhm202 T(SGOT) 16 U/L 04/19/2016 Comp Metabolic Gqb556 AL T(SGPT) 13 U/L 04/19/2016 Comp Metabolic Eez445 BI LI T 0.4 mg/dL 04/19/2016 Comp Metabolic Khy121 AL BUMIN 4.5 g/dL 04/19/2016 Comp Metabolic Azg756 TP RO 7.2 g/dL 04/19/2016 Comp Metabolic Vxf284 GL OB 2.7 g/dL 04/19/2016 Comp Metabolic Igc712 A/ G Ratio 1.7 Ratio 04/19/2016 Comp Metabolic Hnk864 Os mo 271 mOsmo 04/19/2016 Tsh Ord6 hTSH II 1.41 uIU/mL 04/19/2016 Cbc With Differential Ord2 WBC 11.02 K/ul 04/19/2016 Cbc With Differential Ord2 RBC 4.86 M/ul 04/19/2016 Cbc With Differential Ord2 HGB 15.0 g/dl 04/19/2016 Cbc With Differential Ord2 HCT 44.3 % 04/19/2016 Cbc With Differential Ord2 Neut% 60.2 % 04/19/2016 Cbc With Differential Ord2 MCV 91.2 fl 04/19/2016 Cbc With Differential Ord2 Lymph% 31.1 % 04/19/2016 Cbc With Differential Ord2 MCH 30.9 pg 04/19/2016 Cbc With Differential Ord2 Swift% 6.4 % 04/19/2016 Cbc With Differential Ord2 Eos% 2.1 % 04/19/2016 Cbc With Differential Ord2 MCHC 33.9 pg 04/19/2016 Cbc With Differential Ord2 Baso% 0.2 % 04/19/2016 Cbc With Differential Ord2 PLT 302 K/ul 04/19/2016 Cbc With Differential Ord2 RDW 13.3 % 04/19/2016 Cbc With Differential Ord2 Neut ABS# 6.64 K/ul 04/19/2016 Cbc With Differential Ord2 Lymph ABS# 3.43 K/ul 04/19/2016 Cbc With Differential Ord2 Swift ABS# 0.7 K/ul 04/19/2016 Cbc With Differential Ord2 Eos ABS# 0.2 K/ul 04/19/2016 Cbc With Differential Ord2 Baso ABS# 0.0 K/ul 04/19/2016 Tsh Ord6 hTSH II 1.91 uIU/mL 07/11/2015 Cbc With Differential Ord2 WBC 7.43 K/ul 07/11/2015 Cbc With Differential Ord2 RBC 4.41 M/ul 07/11/2015 Cbc With Differential Ord2 HGB 13.6 g/dl 07/11/2015 Cbc With Differential Ord2 Neut% 49.5 % 07/11/2015 Cbc With Differential Ord2 HCT 40.6 % 07/11/2015 Cbc With Differential Ord2 Lymph% 37.0 % 07/11/2015 Cbc With Differential Ord2 MCV 92.1 fl 07/11/2015 Cbc With Differential Ord2 MCH 30.8 pg 07/11/2015 Cbc With Differential Ord2 Swift% 7.8 % 07/11/2015 Cbc With Differential Ord2 MCHC 33.5 pg 07/11/2015 Cbc With Differential Ord2 Eos% 5.0 % 07/11/2015 Cbc With Differential Ord2 PLT 304 K/ul 07/11/2015 Cbc With Differential Ord2 Baso% 0.7 % 07/11/2015 Cbc With Differential Ord2 RDW 13.2 % 07/11/2015 Cbc With Differential Ord2 Neut ABS# 3.68 K/ul 07/11/2015 Cbc With Differential Ord2 Lymph ABS# 2.75 K/ul 07/11/2015 Cbc With Differential Ord2 Swift ABS# 0.6 K/ul 07/11/2015 Cbc With Differential Ord2 Eos ABS# 0.4 K/ul 07/11/2015 Cbc With Differential Ord2 Baso ABS# 0.1 K/ul 07/11/2015 Cbc With Differential Ord2 New Analyzer Notice Please note new ref ranges s tarting 05-24-2015 due to implemntation of new five part differential hematolgy analyzer. 07/11/2015 Comp Metabolic Qwd777 NA 137 mEq/L 07/11/2015 Comp Metabolic Lgp541 K 4.4 mEq/L 07/11/2015 Comp Metabolic Ege019 CL 100 mEq/L 07/11/2015 Comp Metabolic Lyf550 CO2 25.0 mEq/L 07/11/2015 Comp Metabolic Rph416 AN ION GAP 16 07/11/2015 Comp Metabolic Cdw828 GL UCOSE 75 mg/dL 07/11/2015 Comp Metabolic Smv426 Cr eat 0.8 mg/dL 07/11/2015 Comp Metabolic Lir379 eG FR 76 ml/min/1.73m2 07/10 Comp Metabolic Lkz614 BUN 18 mg/dL 07/11/2015 Comp Metabolic Cnb649 B/ C Ratio 22.2 Ratio 07/11/2015 Comp Metabolic Zmu585 CA LCIUM 9.5 mg/dL 07/11/2015 Comp Metabolic Nzc339 AL K PHOS 92 U/L 07/11/2015 Comp Metabolic Ohu133 T(SGOT) 16 U/L 07/11/2015 Comp Metabolic Znv231 AL T(SGPT) 18 U/L 07/11/2015 Comp Metabolic Vdm046 BI LI T 0.6 mg/dL 07/11/2015 Comp Metabolic Wmu721 AL BUMIN 4.3 g/dL 07/11/2015 Comp Metabolic Uzd806 TP RO 6.7 g/dL 07/11/2015 Comp Metabolic Pfk612 GL OB 2.4 g/dL 07/11/2015 Comp Metabolic Sut598 A/ G Ratio 1.7 Ratio 07/11/2015 Comp Metabolic Dvd530 Os mo 274 mOsmo 07/11/2015 Lipid Ord30 CHOL 197 mg/dL 07/11/2015 Lipid Ord30 HDL 55.0 mg/dl 07/11/2015 Lipid Ord30 TRIG 126 mg/dL 07/11/2015 Lipid Ord30 LDL 117 mg/dL 07/11/2015 Lipid Ord30 C/HDL 3.6 Ratio 07/11/2015 B12 Hyj963 B12 >1500.00 pg/ml 07/11/2015 Review of Systems System Result Effective Dates Constitutional No recent illness 10/21/2018 Constitutional No anorexia 10/21/2018 Constitutional No night sweats 10/21/2018 Constitutional No chills 10/21/2018 Constitutional No diaphoresis 10/21/2018 Constitutional fatigue 0 10/21/2018 Constitutional No fever 10/21/2018 Constitutional No insomnia 10/21/2018 Constitutional No malaise 10/21/2018 Eyes No eye discharge Eyes No eye erythema 04/2019 Ears/Nose/Throat/Neck No dizziness 10/21/2018 Ears/Nose/Throat/Neck No headache 10/21/2018 Cardiovascular No chest pain/pressure 10/21/2018 Cardiovascular No dyspnea 10/21/2018 Cardiovascular No edema 10/21/2018 Respiratory No cough 04/2019 Gastrointestinal No abdominal pain 10/21/2018 Gastrointestinal No constipation 10/21/2018 Gastrointestinal No diarrhea 10/21/2018 Genitourinary/Nephrology No dysuria 10/21/2018 Musculoskeletal stiffness 10/21/2018 Musculoskeletal back pain 10/21/2018 Dermatologic No rash 04/2019 Dermatologic No sores Neurologic No alteration of consciousness 10/21/2018 Neurologic memory loss 0 10/21/2018 Psychiatric No anxiety 0 10/21/2018 Psychiatric depression 0 10/21/2018 Psychiatric disturbances of memory 10/21/2018 Constitutional recent illness 09/08/2018 Constitutional No anorexia 09/08/2018 Constitutional No night sweats 09/08/2018 Constitutional No chills 09/08/2018 Constitutional No diaphoresis 09/08/2018 Constitutional fatigue 0 09/08/2018 Constitutional No fever 09/08/2018 Constitutional No insomnia 09/08/2018 Constitutional No malaise 09/08/2018 Constitutional No weight loss 09/08/2018 Constitutional No weight gain 09/08/2018 Eyes No eye discharge Eyes No eye erythema Ears/Nose/Throat/Neck No dizziness 09/08/2018 Ears/Nose/Throat/Neck No headache 09/08/2018 Ears/Nose/Throat/Neck nasal discharge 09/08/2018 Ears/Nose/Throat/Neck No otalgia 09/08/2018 Ears/Nose/Throat/Neck sinus congestion 09/08/2018 Ears/Nose/Throat/Neck sore throat 09/08/2018 Cardiovascular No chest pain/pressure 09/08/2018 Cardiovascular No edema 09/08/2018 Respiratory productive sputum 09/08/2018 Respiratory chest congestion 09/08/2018 Respiratory cough 2018 Respiratory wheezing Gastrointestinal No vomiting 09/08/2018 Gastrointestinal No nausea 09/08/2018 Gastrointestinal No diarrhea 09/08/2018 Genitourinary/Nephrology No dysuria 09/08/2018 Musculoskeletal No joint complaint 09/08/2018 Dermatologic No rash Neurologic No alteration of consciousness 09/08/2018 Constitutional No recent illness 06/18/2018 Constitutional No anorexia 06/18/2018 Constitutional No night sweats 06/18/2018 Constitutional No chills 06/18/2018 Constitutional No diaphoresis 06/18/2018 Constitutional fatigue 0 06/18/2018 Constitutional No fever 06/18/2018 Constitutional No insomnia 06/18/2018 Constitutional No malaise 06/18/2018 Eyes No eye discharge Eyes No eye erythema 11/2018 Ears/Nose/Throat/Neck No dizziness 06/18/2018 Ears/Nose/Throat/Neck No headache 06/18/2018 Cardiovascular No chest pain/pressure 06/18/2018 Cardiovascular No dyspnea 06/18/2018 Cardiovascular No edema 06/18/2018 Respiratory No cough 11/2018 Gastrointestinal No abdominal pain 06/18/2018 Gastrointestinal No constipation 06/18/2018 Gastrointestinal No diarrhea 06/18/2018 Genitourinary/Nephrology No dysuria 06/18/2018 Musculoskeletal back pain 06/18/2018 Dermatologic No rash 11/2018 Dermatologic No sores Neurologic No alteration of consciousness 06/18/2018 Neurologic memory loss 0 06/18/2018 Psychiatric No anxiety 0 06/18/2018 Psychiatric depression 0 06/18/2018 Psychiatric disturbances of memory 06/18/2018 Musculoskeletal stiffness 06/18/2018 Musculoskeletal joint complaint 06/18/2018 Constitutional recent illness 02/18/2018 Constitutional No anorexia 02/18/2018 Constitutional No night sweats 02/18/2018 Constitutional No chills 02/18/2018 Constitutional No diaphoresis 02/18/2018 Constitutional fatigue 1 Constitutional fever 02/2018 Constitutional No insomnia 02/18/2018 Constitutional No malaise 02/18/2018 Eyes No eye discharge Eyes No eye erythema 02/2018 Ears/Nose/Throat/Neck No dizziness 02/18/2018 Ears/Nose/Throat/Neck No headache 02/18/2018 Cardiovascular No chest pain/pressure 02/18/2018 Cardiovascular dyspnea 1 Cardiovascular No edema 02/18/2018 Respiratory cough 2017 Gastrointestinal No abdominal pain 02/18/2018 Gastrointestinal No constipation 02/18/2018 Gastrointestinal No diarrhea 02/18/2018 Musculoskeletal back pain 02/18/2018 Dermatologic No rash 02/2018 Dermatologic No sores Neurologic No alteration of consciousness 02/18/2018 Psychiatric No anxiety 1 Psychiatric disturbances of memory 02/18/2018 Respiratory chest congestion 02/18/2018 Constitutional No recent illness 01/08/2018 Constitutional No anorexia 01/08/2018 Constitutional No night sweats 01/08/2018 Constitutional No chills 01/08/2018 Constitutional No diaphoresis 01/08/2018 Constitutional No fatigue 01/08/2018 Constitutional No fever 01/08/2018 Constitutional No insomnia 01/08/2018 Constitutional No malaise 01/08/2018 Eyes No eye discharge Eyes No eye erythema Ears/Nose/Throat/Neck No dizziness 01/08/2018 Ears/Nose/Throat/Neck No headache 01/08/2018 Cardiovascular No chest pain/pressure 01/08/2018 Cardiovascular No dyspnea 01/08/2018 Cardiovascular No edema 01/08/2018 Respiratory No cough Gastrointestinal No abdominal pain 01/08/2018 Gastrointestinal No constipation 01/08/2018 Gastrointestinal No diarrhea 01/08/2018 Genitourinary/Nephrology No dysuria 01/08/2018 Musculoskeletal back pain 01/08/2018 Dermatologic No rash Dermatologic No sores Neurologic No alteration of consciousness 01/08/2018 Neurologic memory loss 0 01/08/2018 Psychiatric No anxiety 0 01/08/2018 Psychiatric depression 0 01/08/2018 Psychiatric disturbances of memory 01/08/2018 Constitutional No recent illness 09/09/2017 Constitutional No anorexia 09/09/2017 Constitutional No night sweats 09/09/2017 Constitutional No chills 09/09/2017 Constitutional No diaphoresis 09/09/2017 Constitutional No fatigue 09/09/2017 Constitutional No fever 09/09/2017 Constitutional No insomnia 09/09/2017 Constitutional No malaise 09/09/2017 Eyes No eye discharge Eyes No eye erythema 05/2017 Ears/Nose/Throat/Neck No dizziness 09/09/2017 Ears/Nose/Throat/Neck No headache 09/09/2017 Cardiovascular No chest pain/pressure 09/09/2017 Cardiovascular No dyspnea 09/09/2017 Cardiovascular No edema 09/09/2017 Respiratory No cough 05/2017 Gastrointestinal No abdominal pain 09/09/2017 Gastrointestinal No constipation 09/09/2017 Gastrointestinal No diarrhea 09/09/2017 Genitourinary/Nephrology No dysuria 09/09/2017 Musculoskeletal back pain 09/09/2017 Dermatologic No rash 05/2017 Dermatologic No sores Neurologic No alteration of consciousness 09/09/2017 Neurologic memory loss 0 09/09/2017 Psychiatric No anxiety 0 09/09/2017 Psychiatric depression 0 09/09/2017 Psychiatric disturbances of memory 09/09/2017 Constitutional No recent illness 03/25/2017 Constitutional No anorexia 03/25/2017 Constitutional No night sweats 03/25/2017 Constitutional No chills 03/25/2017 Constitutional No diaphoresis 03/25/2017 Constitutional No fatigue 03/25/2017 Constitutional No fever 03/25/2017 Constitutional No insomnia 03/25/2017 Constitutional No malaise 03/25/2017 Eyes No eye discharge Eyes No eye erythema Ears/Nose/Throat/Neck No dizziness 03/25/2017 Ears/Nose/Throat/Neck No headache 03/25/2017 Cardiovascular No chest pain/pressure 03/25/2017 Cardiovascular No dyspnea 03/25/2017 Cardiovascular No edema 03/25/2017 Respiratory No cough Gastrointestinal No abdominal pain 03/25/2017 Gastrointestinal No constipation 03/25/2017 Gastrointestinal No diarrhea 03/25/2017 Genitourinary/Nephrology No dysuria 03/25/2017 Musculoskeletal back pain 03/25/2017 Dermatologic No rash Dermatologic No sores Neurologic No alteration of consciousness 03/25/2017 Neurologic memory loss 1 05/25/2016 Psychiatric No anxiety 1 05/25/2016 Psychiatric depression 1 05/25/2016 Psychiatric disturbances of memory 03/25/2017 Constitutional No recent illness 12/16/2016 Constitutional No chills 12/16/2016 Constitutional No diaphoresis 12/16/2016 Constitutional No fever 12/16/2016 Eyes No blindness 2016 Ears/Nose/Throat/Neck No nasal allergies 12/16/2016 Ears/Nose/Throat/Neck No nasal discharge 12/16/2016 Cardiovascular No chest pain/pressure 12/16/2016 Cardiovascular No dyspnea 12/16/2016 Respiratory No cough 11/2016 Respiratory No dyspnea 0 12/16/2016 Gastrointestinal No abdominal pain 12/16/2016 Musculoskeletal back pain 12/16/2016 Dermatologic No rash 11/2016 Neurologic No alteration of consciousness 12/16/2016 Neurologic No mental status change 12/16/2016 Musculoskeletal joint complaint 12/16/2016 Musculoskeletal sciatica 12/16/2016 Constitutional No recent illness 12/05/2016 Constitutional No chills 12/05/2016 Constitutional No diaphoresis 12/05/2016 Constitutional No fever 12/05/2016 Eyes No eye erythema Ears/Nose/Throat/Neck No nasal discharge 12/05/2016 Ears/Nose/Throat/Neck No nasal allergies 12/05/2016 Cardiovascular No chest pain/pressure 12/05/2016 Cardiovascular No dyspnea 12/05/2016 Respiratory No cough Respiratory No dyspnea 0 12/05/2016 Gastrointestinal No abdominal pain 12/05/2016 Musculoskeletal back pain 12/05/2016 Dermatologic No rash Neurologic No alteration of consciousness 12/05/2016 Neurologic No mental status change 12/05/2016 Constitutional No recent illness 10/22/2016 Constitutional No anorexia 10/22/2016 Constitutional No chills 10/22/2016 Constitutional No night sweats 10/22/2016 Constitutional No fatigue 10/22/2016 Constitutional No diaphoresis 10/22/2016 Constitutional No fever 10/22/2016 Constitutional No insomnia 10/22/2016 Constitutional No malaise 10/22/2016 Constitutional No weight loss 10/22/2016 Constitutional No weight gain 10/22/2016 Dermatologic actinic keratosis 10/22/2016 Constitutional No recent illness 09/25/2016 Constitutional No anorexia 09/25/2016 Constitutional No night sweats 09/25/2016 Constitutional No chills 09/25/2016 Constitutional No diaphoresis 09/25/2016 Constitutional No fatigue 09/25/2016 Constitutional No fever 09/25/2016 Constitutional No insomnia 09/25/2016 Constitutional No malaise 09/25/2016 Eyes No eye discharge Eyes No eye erythema Ears/Nose/Throat/Neck No dizziness 09/25/2016 Ears/Nose/Throat/Neck No headache 09/25/2016 Cardiovascular No chest pain/pressure 09/25/2016 Cardiovascular No dyspnea 09/25/2016 Cardiovascular No edema 09/25/2016 Respiratory No cough Gastrointestinal No abdominal pain 09/25/2016 Gastrointestinal No constipation 09/25/2016 Gastrointestinal No diarrhea 09/25/2016 Genitourinary/Nephrology No dysuria 09/25/2016 Musculoskeletal back pain 09/25/2016 Dermatologic No rash Dermatologic No sores Neurologic No alteration of consciousness 09/25/2016 Neurologic memory loss 0 09/25/2016 Psychiatric No anxiety 0 09/25/2016 Psychiatric depression 0 09/25/2016 Psychiatric disturbances of memory 09/25/2016 Constitutional No recent illness 05/29/2016 Constitutional No anorexia 05/29/2016 Constitutional No night sweats 05/29/2016 Constitutional No chills 05/29/2016 Constitutional No diaphoresis 05/29/2016 Constitutional No fatigue 05/29/2016 Constitutional No fever 05/29/2016 Constitutional No insomnia 05/29/2016 Constitutional No malaise 05/29/2016 Eyes No eye discharge Eyes No eye erythema Ears/Nose/Throat/Neck No dizziness 05/29/2016 Ears/Nose/Throat/Neck No headache 05/29/2016 Cardiovascular No chest pain/pressure 05/29/2016 Cardiovascular No dyspnea 05/29/2016 Cardiovascular No edema 05/29/2016 Respiratory No cough Gastrointestinal No abdominal pain 05/29/2016 Gastrointestinal No constipation 05/29/2016 Gastrointestinal No diarrhea 05/29/2016 Genitourinary/Nephrology No dysuria 05/29/2016 Musculoskeletal back pain 05/29/2016 Dermatologic No rash Dermatologic No sores Neurologic No alteration of consciousness 05/29/2016 Neurologic memory loss 0 05/29/2016 Psychiatric No anxiety 0 05/29/2016 Constitutional No recent illness 04/19/2016 Constitutional No chills 04/19/2016 Constitutional No diaphoresis 04/19/2016 Constitutional No fever 04/19/2016 Eyes No eye discharge Eyes No eye erythema 01/2016 Cardiovascular No chest pain/pressure 04/19/2016 Cardiovascular No dyspnea 04/19/2016 Respiratory No cough 01/2016 Gastrointestinal No abdominal pain 04/19/2016 Gastrointestinal No constipation 04/19/2016 Gastrointestinal No diarrhea 04/19/2016 Dermatologic No rash 01/2016 Dermatologic No sores Neurologic No alteration of consciousness 04/19/2016 Ears/Nose/Throat/Neck nasal allergies 04/19/2016 Ears/Nose/Throat/Neck nasal discharge 04/19/2016 Ears/Nose/Throat/Neck No sore throat 04/19/2016 Respiratory No chest congestion 04/19/2016 Respiratory No dyspnea 1 06/20/2015 Gastrointestinal No vomiting 04/19/2016 Gastrointestinal No nausea 04/19/2016 Constitutional No recent illness 04/17/2016 Constitutional No anorexia 04/17/2016 Constitutional No night sweats 04/17/2016 Constitutional No chills 04/17/2016 Constitutional No diaphoresis 04/17/2016 Constitutional No fatigue 04/17/2016 Constitutional No fever 04/17/2016 Constitutional No insomnia 04/17/2016 Constitutional No malaise 04/17/2016 Eyes No eye discharge Eyes No eye erythema 11/2015 Ears/Nose/Throat/Neck No dizziness 04/17/2016 Ears/Nose/Throat/Neck No headache 04/17/2016 Cardiovascular No chest pain/pressure 04/17/2016 Cardiovascular No dyspnea 04/17/2016 Cardiovascular No edema 04/17/2016 Respiratory No cough 11/2015 Gastrointestinal No abdominal pain 04/17/2016 Gastrointestinal No constipation 04/17/2016 Gastrointestinal No diarrhea 04/17/2016 Genitourinary/Nephrology No dysuria 04/17/2016 Musculoskeletal back pain 04/17/2016 Dermatologic No rash 11/2015 Dermatologic No sores Neurologic No alteration of consciousness 04/17/2016 Neurologic memory loss 1 06/18/2015 Psychiatric No anxiety 1 06/18/2015 Constitutional No recent illness 10/12/2015 Constitutional No anorexia 10/12/2015 Constitutional No night sweats 10/12/2015 Constitutional No chills 10/12/2015 Constitutional No diaphoresis 10/12/2015 Constitutional No fatigue 10/12/2015 Constitutional No fever 10/12/2015 Constitutional No insomnia 10/12/2015 Constitutional No malaise 10/12/2015 Eyes No eye discharge Eyes No eye erythema 06/2015 Ears/Nose/Throat/Neck No dizziness 10/12/2015 Ears/Nose/Throat/Neck No headache 10/12/2015 Cardiovascular No chest pain/pressure 10/12/2015 Cardiovascular No dyspnea 10/12/2015 Cardiovascular No edema 10/12/2015 Respiratory No cough 06/2015 Gastrointestinal No abdominal pain 10/12/2015 Gastrointestinal No constipation 10/12/2015 Gastrointestinal No diarrhea 10/12/2015 Genitourinary/Nephrology No dysuria 10/12/2015 Musculoskeletal back pain 10/12/2015 Dermatologic No rash 06/2015 Dermatologic No sores Neurologic No alteration of consciousness 10/12/2015 Psychiatric No anxiety 0 10/12/2015 Neurologic memory loss 0 10/12/2015 Constitutional No recent illness 07/11/2015 Constitutional No anorexia 07/11/2015 Constitutional No night sweats 07/11/2015 Constitutional No chills 07/11/2015 Constitutional No diaphoresis 07/11/2015 Constitutional No fatigue 07/11/2015 Constitutional No fever 07/11/2015 Constitutional No insomnia 07/11/2015 Constitutional No malaise 07/11/2015 Constitutional No weight loss 07/11/2015 Constitutional No weight gain 07/11/2015 Eyes No eye discharge Eyes No eye erythema 05/2015 Ears/Nose/Throat/Neck No dizziness 07/11/2015 Ears/Nose/Throat/Neck No headache 07/11/2015 Cardiovascular No chest pain/pressure 07/11/2015 Cardiovascular No dyspnea 07/11/2015 Cardiovascular No edema 07/11/2015 Respiratory No cough 05/2015 Gastrointestinal No abdominal pain 07/11/2015 Gastrointestinal No constipation 07/11/2015 Gastrointestinal No diarrhea 07/11/2015 Genitourinary/Nephrology No dysuria 07/11/2015 Musculoskeletal back pain 07/11/2015 Dermatologic No rash 05/2015 Dermatologic No sores Neurologic No alteration of consciousness 07/11/2015 Psychiatric No anxiety 0 07/11/2015 Constitutional No recent illness 05/16/2015 Constitutional No anorexia 05/16/2015 Constitutional No chills 05/16/2015 Constitutional No night sweats 05/16/2015 Constitutional No diaphoresis 05/16/2015 Constitutional No fatigue 05/16/2015 Constitutional No fever 05/16/2015 Constitutional No insomnia 05/16/2015 Constitutional No malaise 05/16/2015 Constitutional No weight loss 05/16/2015 Constitutional No weight gain 05/16/2015 Eyes No eye discharge Eyes No eye erythema 09/2015 Ears/Nose/Throat/Neck No dizziness 05/16/2015 Ears/Nose/Throat/Neck No headache 05/16/2015 Cardiovascular No chest pain/pressure 05/16/2015 Cardiovascular No dyspnea 05/16/2015 Cardiovascular No edema 05/16/2015 Respiratory No cough 09/2015 Gastrointestinal No abdominal pain 05/16/2015 Gastrointestinal No constipation 05/16/2015 Gastrointestinal No diarrhea 05/16/2015 Genitourinary/Nephrology No dysuria 05/16/2015 Musculoskeletal back pain 05/16/2015 Dermatologic No rash 09/2015 Dermatologic No sores Neurologic No alteration of consciousness 05/16/2015 Psychiatric No anxiety 0 05/16/2015 Psychiatric disturbances of memory 05/16/2015 Constitutional recent illness 11/03/2014 Constitutional No chills 11/03/2014 Constitutional fatigue 0 11/03/2014 Constitutional No fever 11/03/2014 Constitutional No insomnia 11/03/2014 Constitutional No malaise 11/03/2014 Eyes No blindness 2014 Eyes No vision change Ears/Nose/Throat/Neck No dental pain 11/03/2014 Ears/Nose/Throat/Neck No dizziness 11/03/2014 Ears/Nose/Throat/Neck No dysphagia 11/03/2014 Ears/Nose/Throat/Neck No headache 11/03/2014 Ears/Nose/Throat/Neck No hearing loss 11/03/2014 Ears/Nose/Throat/Neck No nasal allergies 11/03/2014 Ears/Nose/Throat/Neck No sore throat 11/03/2014 Ears/Nose/Throat/Neck No postnasal drip 11/03/2014 Ears/Nose/Throat/Neck No sinus congestion 11/03/2014 Cardiovascular No chest pain/pressure 11/03/2014 Cardiovascular No dyspnea 11/03/2014 Cardiovascular No edema 11/03/2014 Cardiovascular No exercise intolerance 11/03/2014 Cardiovascular fatigue 0 11/03/2014 Cardiovascular No near-syncope/dizziness 11/03/2014 Respiratory No chest tightness 11/03/2014 Respiratory No cough Respiratory No dyspnea 0 11/03/2014 Respiratory No pedal edema 11/03/2014 Gastrointestinal No abdominal pain 11/03/2014 Gastrointestinal No constipation 11/03/2014 Gastrointestinal No diarrhea 11/03/2014 Gastrointestinal No gastroesophageal reflu x 11/03/2014 Gastrointestinal No nausea 11/03/2014 Gastrointestinal No vomiting 11/03/2014 Genitourinary/Nephrology No dysuria 11/03/2014 Genitourinary/Nephrology No nocturia 11/03/2014 Genitourinary/Nephrology No urinary incontinence 11/03/2014 Musculoskeletal stiffness 11/03/2014 Musculoskeletal No swelling 11/03/2014 Musculoskeletal muscle weakness 11/03/2014 Musculoskeletal No myalgias 11/03/2014 Dermatologic No rash Dermatologic No sores Dermatologic No scar Neurologic No dizziness 11/03/2014 Neurologic No headache 0 11/03/2014 Neurologic No neck pain 11/03/2014 Neurologic No syncope Psychiatric No anxiety 0 11/03/2014 Psychiatric No depression 11/03/2014 Musculoskeletal back pain 11/03/2014 Physical Exam Exam Name System Name It em Name Status Result Effective Dates Notes Full Exam - General 1994 Constitutional general appearance Development: well developed 10/21/2018 None Full Exam - General 1994 Constitutional general appearance Development: appears stated age 0610/21/2018 None Full Exam - General 1994 Constitutional general appearance Hygiene/Attention to Grooming: good hygiene 10/21/2018 None Full Exam - General 1994 Eyes conjunctiva/eyelids Overall: conjunctiva clear 10/21/2018 None Full Exam - General 1994 Eyes conjunctiva/eyelids Overall: cornea clear 10/21/2018 None Full Exam - General 1994 Eyes conjunctiva/eyelids Overall: eyelids normal 10/21/2018 None Full Exam - General 1994 Eyes pupils and irises Overall: pupils equal, round, reactive to light and accomodation 10/21/2018 None Full Exam - General 1994 Ears/Nose/Throat otoscopic exam Overall: external auditory canals clear 10/21/2018 None Full Exam - General 1994 Ears/Nose/Throat otoscopic exam Overall: tympanic membranes clear 10/21/2018 None Full Exam - General 1994 Ears/Nose/Throat lips/teeth/gingiva Overall: benign lips 10/21/2018 None Full Exam - General 1994 Ears/Nose/Throat lips/teeth/gingiva Overall: normal dentition 10/21/2018 None Full Exam - General 1994 Ears/Nose/Throat oral cavity/pharynx/larynx Overall: oral mucosa clear 10/21/2018 None Full Exam - General 1994 Ears/Nose/Throat oral cavity/pharynx/larynx Overall: oropharyngeal mucosa clear 10/21/2018 None Full Exam - General 1994 Ears/Nose/Throat oral cavity/pharynx/larynx Overall: hypopharynx benign 10/21/2018 None Full Exam - General 1994 Ears/Nose/Throat oral cavity/pharynx/larynx Overall: no masses 10/21/2018 None Full Exam - General 1994 Respiratory auscultation Overall: breath sounds clear bilaterally 10/21/2018 None Full Exam - General 1994 Respiratory respiratory effort/rhythm Overall: no retractions 10/21/2018 None Full Exam - General 1994 Respiratory respiratory effort/rhythm Overall: normal rate 10/21/2018 None Full Exam - General 1994 Cardiovascular extremities Overall: no clubbing 10/21/2018 None Full Exam - General 1994 Cardiovascular auscultation of heart Overall: regular rate 10/21/2018 None Full Exam - General 1994 Cardiovascular auscultation of heart Overall: normal heart sounds 10/21/2018 None Full Exam - General 1994 Abdomen abdominal exam Overall: no tenderness 10/21/2018 None Full Exam - General 1994 Abdomen abdominal exam Overall: normal bowel sounds 10/21/2018 None Full Exam - General 1994 Musculoskeletal spine, ribs and pelvis Overall: spine benign 10/21/2018 None Full Exam - General 1994 Musculoskeletal spine, ribs and pelvis Overall: sacroiliac joint benign 10/21/2018 None Full Exam - General 1994 Musculoskeletal spine, ribs and pelvis Overall: good posture 10/21/2018 None Full Exam - General 1994 Musculoskeletal head and neck Overall: head atraumatic 10/21/2018 None Full Exam - General 1994 Musculoskeletal head and neck Overall: cervical spine benign 10/21/2018 None Full Exam - General 1994 Neurologic cranial nerves Overall: crainial nerves 2 - 12 grossly intact 10/21/2018 None Full Exam - General 1994 Psychiatric orientation/consciousness Overall: oriented to person, place and time 10/21/2018 None Full Exam - General 1994 Psychiatric mood and affect Overall: normal mood and affect 10/21/2018 None Full Exam - General 1994 Integument inspection of skin Dermatitis: scaling 10/21/2018 None Full Exam - General 1994 Integument inspection of skin Dermatitis: dryness/flaking 10/21/2018 None Full Exam - ENT Constitutional general appearance Overall: well nourished 09/08/2018 None Full Exam - ENT Constitutional general appearance Overall: well developed 09/08/2018 None Full Exam - ENT Constitutional general appearance Overall: in no acute distress 09/08/2018 None Full Exam - ENT Ears/Nose/Throat otoscopic exam Overall: external auditory canals normal 09/08/2018 None Full Exam - ENT Ears/Nose/Throat otoscopic exam Overall: tympanic membranes normal 09/08/2018 None Full Exam - ENT Ears/Nose/Throat oropharynx Overall: oral mucosa clear 09/08/2018 None Full Exam - ENT Face and Head palpation Overall: no sinus tenderness 09/08/2018 None Full Exam - ENT Respiratory inspection Overall: no retractions 09/08/2018 None Full Exam - ENT Respiratory inspection Overall: normal rate None Full Exam - ENT Respiratory auscultation Diffuse: expiratory wheezes 09/08/2018 None Full Exam - ENT Respiratory auscultation Basilar: diminished 08/12 None Full Exam - ENT Cardiovascular auscultation of heart Overall: regular rate 09/08/2018 None Full Exam - ENT Cardiovascular auscultation of heart Overall: normal heart sounds 09/08/2018 None Full Exam - ENT Lymphatic palpation of lymph nodes Overall: shotty lymphadenopathy 09/08/2018 None Full Exam - ENT Integument inspection of skin Overall: no rash, lesions 09/08/2018 None Full Exam - ENT Neurologic orientation Overall: oriented to person, place a nd time 09/08/2018 None Full Exam - General 1994 Constitutional general appearance Development: well developed 06/18/2018 None Full Exam - General 1994 Constitutional general appearance Development: appears stated age 0206/18/2018 None Full Exam - General 1994 Constitutional general appearance Hygiene/Attention to Grooming: good hygiene 06/18/2018 None Full Exam - General 1994 Eyes conjunctiva/eyelids Overall: conjunctiva clear 06/18/2018 None Full Exam - General 1994 Eyes conjunctiva/eyelids Overall: cornea clear 06/18/2018 None Full Exam - General 1994 Eyes conjunctiva/eyelids Overall: eyelids normal 06/18/2018 None Full Exam - General 1994 Eyes pupils and irises Overall: pupils equal, round, reactive to light and accomodation 06/18/2018 None Full Exam - General 1994 Ears/Nose/Throat otoscopic exam Overall: external auditory canals clear 06/18/2018 None Full Exam - General 1994 Ears/Nose/Throat otoscopic exam Overall: tympanic membranes clear 06/18/2018 None Full Exam - General 1994 Ears/Nose/Throat lips/teeth/gingiva Overall: benign lips 06/18/2018 None Full Exam - General 1994 Ears/Nose/Throat lips/teeth/gingiva Overall: normal dentition 06/18/2018 None Full Exam - General 1994 Ears/Nose/Throat oral cavity/pharynx/larynx Overall: oral mucosa clear 06/18/2018 None Full Exam - General 1995 Ears/Nose/Throat oral cavity/pharynx/larynx Overall: oropharyngeal mucosa clear 06/18/2018 None Full Exam - General 1995 Ears/Nose/Throat oral cavity/pharynx/larynx Overall: hypopharynx benign 06/18/2018 None Full Exam - General 1995 Ears/Nose/Throat oral cavity/pharynx/larynx Overall: no masses 06/18/2018 None Full Exam - General 1994 Respiratory auscultation Overall: breath sounds clear bilaterally 06/18/2018 None Full Exam - General 1994 Respiratory respiratory effort/rhythm Overall: no retractions 06/18/2018 None Full Exam - General 1994 Respiratory respiratory effort/rhythm Overall: normal rate 06/18/2018 None Full Exam - General 1994 Cardiovascular extremities Overall: no clubbing 06/18/2018 None Full Exam - General 1994 Cardiovascular auscultation of heart Overall: regular rate 06/18/2018 None Full Exam - General 1994 Cardiovascular auscultation of heart Overall: normal heart sounds 06/18/2018 None Full Exam - General 1994 Abdomen abdominal exam Overall: no tenderness 06/18/2018 None Full Exam - General 1994 Abdomen abdominal exam Overall: normal bowel sounds 06/18/2018 None Full Exam - General 1994 Musculoskeletal spine, ribs and pelvis Overall: spine benign 06/18/2018 None Full Exam - General 1994 Musculoskeletal spine, ribs and pelvis Overall: sacroiliac joint benign 06/18/2018 None Full Exam - General 1994 Musculoskeletal spine, ribs and pelvis Overall: good posture 06/18/2018 None Full Exam - General 1994 Musculoskeletal head and neck Overall: head atraumatic 06/18/2018 None Full Exam - General 1994 Musculoskeletal head and neck Overall: cervical spine benign 06/18/2018 None Full Exam - General 1994 Neurologic cranial nerves Overall: crainial nerves 2 - 12 grossly intact 06/18/2018 None Full Exam - General 1994 Psychiatric orientation/consciousness Overall: oriented to person, place and time 06/18/2018 None Full Exam - General 1994 Psychiatric mood and affect Overall: normal mood and affect 06/18/2018 None Full Exam - General 1994 Constitutional general appearance Development: well developed 02/18/2018 None Full Exam - General 1994 Constitutional general appearance Development: appears stated age 1002/18/2018 None Full Exam - General 1994 Constitutional general appearance Hygiene/Attention to Grooming: good hygiene 02/18/2018 None Full Exam - General 1994 Eyes conjunctiva/eyelids Overall: conjunctiva clear 02/18/2018 None Full Exam - General 1994 Eyes conjunctiva/eyelids Overall: cornea clear 02/18/2018 None Full Exam - General 1994 Eyes conjunctiva/eyelids Overall: eyelids normal 02/18/2018 None Full Exam - General 1994 Eyes pupils and irises Overall: pupils equal, round, reactive to light and accomodation 02/18/2018 None Full Exam - General 1994 Ears/Nose/Throat otoscopic exam Overall: external auditory canals clear 02/18/2018 None Full Exam - General 1994 Ears/Nose/Throat otoscopic exam Overall: tympanic membranes clear 02/18/2018 None Full Exam - General 1994 Ears/Nose/Throat lips/teeth/gingiva Overall: benign lips 02/18/2018 None Full Exam - General 1994 Ears/Nose/Throat lips/teeth/gingiva Overall: normal dentition 02/18/2018 None Full Exam - General 1994 Ears/Nose/Throat oral cavity/pharynx/larynx Overall: oral mucosa clear 02/18/2018 None Full Exam - General 1994 Ears/Nose/Throat oral cavity/pharynx/larynx Overall: oropharyngeal mucosa clear 02/18/2018 None Full Exam - General 1994 Ears/Nose/Throat oral cavity/pharynx/larynx Overall: hypopharynx benign 02/18/2018 None Full Exam - General 1994 Ears/Nose/Throat oral cavity/pharynx/larynx Overall: no masses 02/18/2018 None Full Exam - General 1994 Respiratory respiratory effort/rhythm Overall: no retractions 02/18/2018 None Full Exam - General 1994 Respiratory respiratory effort/rhythm Overall: normal rate 02/18/2018 None Full Exam - General 1994 Cardiovascular extremities Overall: no clubbing 02/18/2018 None Full Exam - General 1994 Cardiovascular auscultation of heart Overall: regular rate 02/18/2018 None Full Exam - General 1994 Cardiovascular auscultation of heart Overall: normal heart sounds 02/18/2018 None Full Exam - General 1994 Lymphatic neck nodes Overall: anterior cervical chain benign 02/18/2018 None Full Exam - General 1994 Lymphatic neck nodes Overall: posterior cervical chain benign 02/18/2018 None Full Exam - General 1994 Musculoskeletal spine, ribs and pelvis Overall: spine benign 02/18/2018 None Full Exam - General 1994 Musculoskeletal spine, ribs and pelvis Overall: sacroiliac joint benign 02/18/2018 None Full Exam - General 1994 Musculoskeletal spine, ribs and pelvis Overall: good posture 02/18/2018 None Full Exam - General 1994 Musculoskeletal head and neck Overall: head atraumatic 02/18/2018 None Full Exam - General 1994 Musculoskeletal head and neck Overall: cervical spine benign 02/18/2018 None Full Exam - General 1994 Psychiatric orientation/consciousness Overall: oriented to person, place and time 02/18/2018 None Full Exam - General 1994 Psychiatric mood and affect Overall: normal mood and affect 02/18/2018 None Full Exam - General 1994 Respiratory auscultation Upper lung field: diminished 02/18/2018 None Full Exam - General 1994 Respiratory auscultation Upper lung field: expiratory wheezes 02/18/2018 None Full Exam - General 1994 Constitutional general appearance Development: well developed 01/08/2018 None Full Exam - General 1994 Constitutional general appearance Development: appears stated age 0801/08/2018 None Full Exam - General 1994 Constitutional general appearance Hygiene/Attention to Grooming: good hygiene 01/08/2018 None Full Exam - General 1994 Eyes conjunctiva/eyelids Overall: conjunctiva clear 01/08/2018 None Full Exam - General 1994 Eyes conjunctiva/eyelids Overall: cornea clear 01/08/2018 None Full Exam - General 1994 Eyes conjunctiva/eyelids Overall: eyelids normal 01/08/2018 None Full Exam - General 1994 Eyes pupils and irises Overall: pupils equal, round, reactive to light and accomodation 01/08/2018 None Full Exam - General 1994 Ears/Nose/Throat otoscopic exam Overall: external auditory canals clear 01/08/2018 None Full Exam - General 1994 Ears/Nose/Throat otoscopic exam Overall: tympanic membranes clear 01/08/2018 None Full Exam - General 1994 Ears/Nose/Throat lips/teeth/gingiva Overall: benign lips 01/08/2018 None Full Exam - General 1994 Ears/Nose/Throat lips/teeth/gingiva Overall: normal dentition 01/08/2018 None Full Exam - General 1994 Ears/Nose/Throat oral cavity/pharynx/larynx Overall: oral mucosa clear 01/08/2018 None Full Exam - General 1994 Ears/Nose/Throat oral cavity/pharynx/larynx Overall: oropharyngeal mucosa clear 01/08/2018 None Full Exam - General 1994 Ears/Nose/Throat oral cavity/pharynx/larynx Overall: hypopharynx benign 01/08/2018 None Full Exam - General 1994 Ears/Nose/Throat oral cavity/pharynx/larynx Overall: no masses 01/08/2018 None Full Exam - General 1994 Respiratory auscultation Overall: breath sounds clear bilaterally 01/08/2018 None Full Exam - General 1994 Respiratory respiratory effort/rhythm Overall: no retractions 01/08/2018 None Full Exam - General 1994 Respiratory respiratory effort/rhythm Overall: normal rate 01/08/2018 None Full Exam - General 1994 Cardiovascular extremities Overall: no clubbing 01/08/2018 None Full Exam - General 1994 Cardiovascular auscultation of heart Overall: regular rate 01/08/2018 None Full Exam - General 1994 Cardiovascular auscultation of heart Overall: normal heart sounds 01/08/2018 None Full Exam - General 1994 Abdomen abdominal exam Overall: no tenderness 01/08/2018 None Full Exam - General 1994 Abdomen abdominal exam Overall: normal bowel sounds 01/08/2018 None Full Exam - General 1994 Musculoskeletal spine, ribs and pelvis Overall: spine benign 01/08/2018 None Full Exam - General 1994 Musculoskeletal spine, ribs and pelvis Overall: sacroiliac joint benign 01/08/2018 None Full Exam - General 1994 Musculoskeletal spine, ribs and pelvis Overall: good posture 01/08/2018 None Full Exam - General 1994 Musculoskeletal head and neck Overall: head atraumatic 01/08/2018 None Full Exam - General 1994 Musculoskeletal head and neck Overall: cervical spine benign 01/08/2018 None Full Exam - General 1994 Neurologic cranial nerves Overall: crainial nerves 2 - 12 grossly intact 01/08/2018 None Full Exam - General 1994 Psychiatric orientation/consciousness Overall: oriented to person, place and time 01/08/2018 None Full Exam - General 1994 Psychiatric mood and affect Overall: normal mood and affect 01/08/2018 None Full Exam - General 1994 Constitutional general appearance Development: well developed 09/09/2017 None Full Exam - General 1994 Constitutional general appearance Development: appears stated age 0509/09/2017 None Full Exam - General 1994 Constitutional general appearance Hygiene/Attention to Grooming: good hygiene 09/09/2017 None Full Exam - General 1994 Eyes conjunctiva/eyelids Overall: conjunctiva clear 09/09/2017 None Full Exam - General 1994 Eyes conjunctiva/eyelids Overall: cornea clear 09/09/2017 None Full Exam - General 1994 Eyes conjunctiva/eyelids Overall: eyelids normal 09/09/2017 None Full Exam - General 1994 Eyes pupils and irises Overall: pupils equal, round, reactive to light and accomodation 09/09/2017 None Full Exam - General 1994 Ears/Nose/Throat otoscopic exam Overall: external auditory canals clear 09/09/2017 None Full Exam - General 1994 Ears/Nose/Throat otoscopic exam Overall: tympanic membranes clear 09/09/2017 None Full Exam - General 1994 Ears/Nose/Throat lips/teeth/gingiva Overall: benign lips 09/09/2017 None Full Exam - General 1994 Ears/Nose/Throat lips/teeth/gingiva Overall: normal dentition 09/09/2017 None Full Exam - General 1994 Ears/Nose/Throat oral cavity/pharynx/larynx Overall: oral mucosa clear 09/09/2017 None Full Exam - General 1994 Ears/Nose/Throat oral cavity/pharynx/larynx Overall: oropharyngeal mucosa clear 09/09/2017 None Full Exam - General 1994 Ears/Nose/Throat oral cavity/pharynx/larynx Overall: hypopharynx benign 09/09/2017 None Full Exam - General 1994 Ears/Nose/Throat oral cavity/pharynx/larynx Overall: no masses 09/09/2017 None Full Exam - General 1994 Respiratory auscultation Overall: breath sounds clear bilaterally 09/09/2017 None Full Exam - General 1994 Respiratory respiratory effort/rhythm Overall: no retractions 09/09/2017 None Full Exam - General 1994 Respiratory respiratory effort/rhythm Overall: normal rate 09/09/2017 None Full Exam - General 1994 Cardiovascular extremities Overall: no clubbing 09/09/2017 None Full Exam - General 1994 Cardiovascular auscultation of heart Overall: regular rate 09/09/2017 None Full Exam - General 1994 Cardiovascular auscultation of heart Overall: normal heart sounds 09/09/2017 None Full Exam - General 1994 Abdomen abdominal exam Overall: no tenderness 09/09/2017 None Full Exam - General 1994 Abdomen abdominal exam Overall: normal bowel sounds 09/09/2017 None Full Exam - General 1994 Musculoskeletal spine, ribs and pelvis Overall: spine benign 09/09/2017 None Full Exam - General 1994 Musculoskeletal spine, ribs and pelvis Overall: sacroiliac joint benign 09/09/2017 None Full Exam - General 1994 Musculoskeletal spine, ribs and pelvis Overall: good posture 09/09/2017 None Full Exam - General 1994 Musculoskeletal head and neck Overall: head atraumatic 09/09/2017 None Full Exam - General 1994 Musculoskeletal head and neck Overall: cervical spine benign 09/09/2017 None Full Exam - General 1994 Neurologic cranial nerves Overall: crainial nerves 2 - 12 grossly intact 09/09/2017 None Full Exam - General 1994 Psychiatric orientation/consciousness Overall: oriented to person, place and time 09/09/2017 None Full Exam - General 1994 Psychiatric mood and affect Overall: normal mood and affect 09/09/2017 None Full Exam - General 1994 Constitutional general appearance Development: well developed 03/25/2017 None Full Exam - General 1994 Constitutional general appearance Development: appears stated age 1103/25/2017 None Full Exam - General 1994 Constitutional general appearance Hygiene/Attention to Grooming: good hygiene 03/25/2017 None Full Exam - General 1994 Eyes conjunctiva/eyelids Overall: conjunctiva clear 03/25/2017 None Full Exam - General 1994 Eyes conjunctiva/eyelids Overall: cornea clear 03/25/2017 None Full Exam - General 1994 Eyes conjunctiva/eyelids Overall: eyelids normal 03/25/2017 None Full Exam - General 1994 Eyes pupils and irises Overall: pupils equal, round, reactive to light and accomodation 03/25/2017 None Full Exam - General 1994 Ears/Nose/Throat otoscopic exam Overall: external auditory canals clear 03/25/2017 None Full Exam - General 1994 Ears/Nose/Throat otoscopic exam Overall: tympanic membranes clear 03/25/2017 None Full Exam - General 1994 Ears/Nose/Throat lips/teeth/gingiva Overall: benign lips 03/25/2017 None Full Exam - General 1994 Ears/Nose/Throat lips/teeth/gingiva Overall: normal dentition 03/25/2017 None Full Exam - General 1994 Ears/Nose/Throat oral cavity/pharynx/larynx Overall: oral mucosa clear 03/25/2017 None Full Exam - General 1994 Ears/Nose/Throat oral cavity/pharynx/larynx Overall: oropharyngeal mucosa clear 03/25/2017 None Full Exam - General 1994 Ears/Nose/Throat oral cavity/pharynx/larynx Overall: hypopharynx benign 03/25/2017 None Full Exam - General 1994 Ears/Nose/Throat oral cavity/pharynx/larynx Overall: no masses 03/25/2017 None Full Exam - General 1994 Respiratory auscultation Overall: breath sounds clear bilaterally 03/25/2017 None Full Exam - General 1994 Respiratory respiratory effort/rhythm Overall: no retractions 03/25/2017 None Full Exam - General 1994 Respiratory respiratory effort/rhythm Overall: normal rate 03/25/2017 None Full Exam - General 1994 Cardiovascular extremities Overall: no clubbing 03/25/2017 None Full Exam - General 1994 Cardiovascular auscultation of heart Overall: regular rate 03/25/2017 None Full Exam - General 1994 Cardiovascular auscultation of heart Overall: normal heart sounds 03/25/2017 None Full Exam - General 1994 Abdomen abdominal exam Overall: no tenderness 03/25/2017 None Full Exam - General 1994 Abdomen abdominal exam Overall: normal bowel sounds 03/25/2017 None Full Exam - General 1994 Lymphatic neck nodes Overall: anterior cervical chain benign 03/25/2017 None Full Exam - General 1994 Lymphatic neck nodes Overall: posterior cervical chain benign 03/25/2017 None Full Exam - General 1994 Musculoskeletal spine, ribs and pelvis Overall: spine benign 03/25/2017 None Full Exam - General 1994 Musculoskeletal spine, ribs and pelvis Overall: sacroiliac joint benign 03/25/2017 None Full Exam - General 1994 Musculoskeletal spine, ribs and pelvis Overall: good posture 03/25/2017 None Full Exam - General 1994 Musculoskeletal head and neck Overall: head atraumatic 03/25/2017 None Full Exam - General 1994 Musculoskeletal head and neck Overall: cervical spine benign 03/25/2017 None Full Exam - General 1994 Integument inspection of skin Overall: few scattered moles, no gross abnormalities 03/25/2017 None Full Exam - General 1994 Neurologic deep tendon reflexes Overall: deep tendon reflexes intact 03/25/2017 None Full Exam - General 1994 Neurologic cranial nerves Overall: crainial nerves 2 - 12 grossly intact 03/25/2017 None Full Exam - General 1994 Psychiatric orientation/consciousness Overall: oriented to person, place and time 03/25/2017 None Full Exam - General 1994 Psychiatric mood and affect Overall: normal mood and affect 03/25/2017 None Full Exam - Orthopedics Constitutional general appearance Overall: well nourished 12/16/2016 None Full Exam - Orthopedics Constitutional general appearance Overall: well developed 12/16/2016 None Full Exam - Orthopedics Eyes conjunctiva/eyelids Overall: conjunctiva clear 12/16/2016 None Full Exam - Orthopedics Eyes conjunctiva/eyelids Overall: eyelids normal 12/16/2016 None Full Exam - Orthopedics Ears/Nose/Throat lips/teeth/gingiva Overall: benign lips 12/16/2016 None Full Exam - Orthopedics Ears/Nose/Throat oral cavity/pharynx/larynx Overall: oral mucosa clear 12/16/2016 None Full Exam - Orthopedics Respiratory auscultation Overall: breath sounds clear bilaterally 12/16/2016 None Full Exam - Orthopedics Respiratory respiratory effort/rhythm Overall: no retractions 12/16/2016 None Full Exam - Orthopedics Respiratory respiratory effort/rhythm Overall: normal rate 12/16/2016 None Full Exam - Orthopedics MS: head/neck insp & palp - H/N Overall: head atraumatic 12/16/2016 None Full Exam - Orthopedics MS: spine/ri b/pelvis insp & palp - S/R/P Lumbar spine palpation : tender lumbar spinous processes 12/16/2016 None Full Exam - Orthopedics MS: spine/ri b/pelvis insp & palp - S/R/P Sacroiliac palpation: left sacroiliac joint tenderness 12/16/2016 None Full Exam - Orthopedics Psychiatric orientation/consciousness Overall: oriented to person, place and time 12/16/2016 None Full Exam - Orthopedics Psychiatric mood and affect Overall: normal mood and affect 12/16/2016 None Full Exam - Orthopedics Psychiatric appearance Overall: well-groomed, good eye contact 12/16/2016 None Full Exam - Orthopedics Constitutional general appearance Assistive Device: cane 12/16/2016 None Full Exam - Orthopedics Cardiovascular examination of vasculature Overall: no clubbing, cyanosis, edema 12/16/2016 None Full Exam - Orthopedics Constitutional general appearance Overall: well nourished 12/05/2016 None Full Exam - Orthopedics Constitutional general appearance Overall: well developed 12/05/2016 None Full Exam - Orthopedics Constitutional general appearance Evidence of Distress: in distress secondary to pain 12/05/2016 mild Full Exam - Orthopedics Eyes conjunctiva/eyelids Overall: conjunctiva clear 12/05/2016 None Full Exam - Orthopedics Eyes conjunctiva/eyelids Overall: eyelids normal 12/05/2016 None Full Exam - Orthopedics Ears/Nose/Throat lips/teeth/gingiva Overall: benign lips 12/05/2016 None Full Exam - Orthopedics Ears/Nose/Throat oral cavity/pharynx/larynx Overall: oral mucosa clear 12/05/2016 None Full Exam - Orthopedics Respiratory respiratory effort/rhythm Overall: no retractions 12/05/2016 None Full Exam - Orthopedics Respiratory respiratory effort/rhythm Overall: normal rate 12/05/2016 None Full Exam - Orthopedics Respiratory auscultation Overall: breath sounds clear bilaterally 12/05/2016 None Full Exam - Orthopedics MS: spine/ri b/pelvis insp & palp - S/R/P Sacroiliac palpation: left sacroiliac joint tenderness 12/05/2016 None Full Exam - Orthopedics MS: spine/ri b/pelvis insp & palp - S/R/P Lumbar spine palpation : tender lumbar spinous processes 12/05/2016 None Full Exam - Orthopedics MS: head/neck insp & palp - H/N Overall: head atraumatic 12/05/2016 None Full Exam - Orthopedics Psychiatric orientation/consciousness Overall: oriented to person, place and time 12/05/2016 None Full Exam - Orthopedics Psychiatric mood and affect Overall: normal mood and affect 12/05/2016 None Full Exam - Orthopedics Psychiatric appearance Overall: well-groomed, good eye contact 12/05/2016 None Full Exam - Dermatology Constitutional general appearance Overall: well nourished 10/22/2016 None Full Exam - Dermatology Constitutional general appearance Overall: well developed 10/22/2016 None Full Exam - Dermatology Constitutional general appearance Overall: in no acute distress 10/22/2016 None Full Exam - Dermatology Constitutional general appearance Overall: of normal body habitus 10/22/2016 None Full Exam - Dermatology Constitutional general appearance Overall: well groomed 10/22/2016 None Full Exam - Dermatology Psychiatric orientation Overall: oriented to person, place and time 10/22/2016 None Full Exam - Dermatology Integument insp & palp - chest/axillae Distribution: isolated 10/22/2016 None Full Exam - Dermatology Integument insp & palp - chest/axillae Location: on the left chest 10/22/2016 None Full Exam - Dermatology Integument insp & palp - chest/axillae Color: erythematous 10/22/2016 base Full Exam - Dermatology Integument insp & palp - chest/axillae Appearance: scaly 10/22/2016 None Full Exam - General 1994 Constitutional general appearance Development: well developed 09/25/2016 None Full Exam - General 1994 Constitutional general appearance Development: appears stated age 0509/25/2016 None Full Exam - General 1994 Constitutional general appearance Hygiene/Attention to Grooming: good hygiene 09/25/2016 None Full Exam - General 1994 Eyes conjunctiva/eyelids Overall: conjunctiva clear 09/25/2016 None Full Exam - General 1994 Eyes conjunctiva/eyelids Overall: cornea clear 09/25/2016 None Full Exam - General 1994 Eyes conjunctiva/eyelids Overall: eyelids normal 09/25/2016 None Full Exam - General 1994 Eyes pupils and irises Overall: pupils equal, round, reactive to light and accomodation 09/25/2016 None Full Exam - General 1994 Ears/Nose/Throat otoscopic exam Overall: external auditory canals clear 09/25/2016 None Full Exam - General 1994 Ears/Nose/Throat otoscopic exam Overall: tympanic membranes clear 09/25/2016 None Full Exam - General 1994 Ears/Nose/Throat lips/teeth/gingiva Overall: benign lips 09/25/2016 None Full Exam - General 1994 Ears/Nose/Throat lips/teeth/gingiva Overall: normal dentition 09/25/2016 None Full Exam - General 1994 Ears/Nose/Throat oral cavity/pharynx/larynx Overall: oral mucosa clear 09/25/2016 None Full Exam - General 1994 Ears/Nose/Throat oral cavity/pharynx/larynx Overall: oropharyngeal mucosa clear 09/25/2016 None Full Exam - General 1994 Ears/Nose/Throat oral cavity/pharynx/larynx Overall: hypopharynx benign 09/25/2016 None Full Exam - General 1994 Ears/Nose/Throat oral cavity/pharynx/larynx Overall: no masses 09/25/2016 None Full Exam - General 1994 Respiratory auscultation Overall: breath sounds clear bilaterally 09/25/2016 None Full Exam - General 1994 Respiratory respiratory effort/rhythm Overall: no retractions 09/25/2016 None Full Exam - General 1994 Respiratory respiratory effort/rhythm Overall: normal rate 09/25/2016 None Full Exam - General 1994 Cardiovascular extremities Overall: no clubbing 09/25/2016 None Full Exam - General 1994 Cardiovascular auscultation of heart Overall: regular rate 09/25/2016 None Full Exam - General 1994 Cardiovascular auscultation of heart Overall: normal heart sounds 09/25/2016 None Full Exam - General 1994 Abdomen abdominal exam Overall: no tenderness 09/25/2016 None Full Exam - General 1994 Abdomen abdominal exam Overall: normal bowel sounds 09/25/2016 None Full Exam - General 1994 Lymphatic neck nodes Overall: anterior cervical chain benign 09/25/2016 None Full Exam - General 1994 Lymphatic neck nodes Overall: posterior cervical chain benign 09/25/2016 None Full Exam - General 1994 Musculoskeletal spine, ribs and pelvis Overall: spine benign 09/25/2016 None Full Exam - General 1994 Musculoskeletal spine, ribs and pelvis Overall: sacroiliac joint benign 09/25/2016 None Full Exam - General 1994 Musculoskeletal spine, ribs and pelvis Overall: good posture 09/25/2016 None Full Exam - General 1994 Musculoskeletal head and neck Overall: head atraumatic 09/25/2016 None Full Exam - General 1994 Musculoskeletal head and neck Overall: cervical spine benign 09/25/2016 None Full Exam - General 1994 Integument inspection of skin Overall: few scattered moles, no gross abnormalities 09/25/2016 None Full Exam - General 1994 Neurologic deep tendon reflexes Overall: deep tendon reflexes intact 09/25/2016 None Full Exam - General 1994 Neurologic cranial nerves Overall: crainial nerves 2 - 12 grossly intact 09/25/2016 None Full Exam - General 1994 Psychiatric orientation/consciousness Overall: oriented to person, place and time 09/25/2016 None Full Exam - General 1994 Psychiatric mood and affect Overall: normal mood and affect 09/25/2016 None Full Exam - General 1994 Constitutional general appearance Development: well developed 05/29/2016 None Full Exam - General 1994 Constitutional general appearance Development: appears stated age 0105/29/2016 None Full Exam - General 1994 Constitutional general appearance Hygiene/Attention to Grooming: good hygiene 05/29/2016 None Full Exam - General 1994 Eyes conjunctiva/eyelids Overall: conjunctiva clear 05/29/2016 None Full Exam - General 1994 Eyes conjunctiva/eyelids Overall: cornea clear 05/29/2016 None Full Exam - General 1994 Eyes conjunctiva/eyelids Overall: eyelids normal 05/29/2016 None Full Exam - General 1994 Eyes pupils and irises Overall: pupils equal, round, reactive to light and accomodation 05/29/2016 None Full Exam - General 1994 Ears/Nose/Throat otoscopic exam Overall: external auditory canals clear 05/29/2016 None Full Exam - General 1994 Ears/Nose/Throat otoscopic exam Overall: tympanic membranes clear 05/29/2016 None Full Exam - General 1994 Ears/Nose/Throat lips/teeth/gingiva Overall: benign lips 05/29/2016 None Full Exam - General 1994 Ears/Nose/Throat lips/teeth/gingiva Overall: normal dentition 05/29/2016 None Full Exam - General 1994 Ears/Nose/Throat oral cavity/pharynx/larynx Overall: oral mucosa clear 05/29/2016 None Full Exam - General 1994 Ears/Nose/Throat oral cavity/pharynx/larynx Overall: oropharyngeal mucosa clear 05/29/2016 None Full Exam - General 1994 Ears/Nose/Throat oral cavity/pharynx/larynx Overall: hypopharynx benign 05/29/2016 None Full Exam - General 1994 Ears/Nose/Throat oral cavity/pharynx/larynx Overall: no masses 05/29/2016 None Full Exam - General 1994 Respiratory auscultation Overall: breath sounds clear bilaterally 05/29/2016 None Full Exam - General 1994 Respiratory respiratory effort/rhythm Overall: no retractions 05/29/2016 None Full Exam - General 1994 Respiratory respiratory effort/rhythm Overall: normal rate 05/29/2016 None Full Exam - General 1994 Cardiovascular extremities Overall: no clubbing 05/29/2016 None Full Exam - General 1994 Cardiovascular auscultation of heart Overall: regular rate 05/29/2016 None Full Exam - General 1994 Cardiovascular auscultation of heart Overall: normal heart sounds 05/29/2016 None Full Exam - General 1994 Abdomen abdominal exam Overall: no tenderness 05/29/2016 None Full Exam - General 1994 Abdomen abdominal exam Overall: normal bowel sounds 05/29/2016 None Full Exam - General 1994 Lymphatic neck nodes Overall: anterior cervical chain benign 05/29/2016 None Full Exam - General 1994 Lymphatic neck nodes Overall: posterior cervical chain benign 05/29/2016 None Full Exam - General 1994 Musculoskeletal spine, ribs and pelvis Overall: spine benign 05/29/2016 None Full Exam - General 1994 Musculoskeletal spine, ribs and pelvis Overall: sacroiliac joint benign 05/29/2016 None Full Exam - General 1994 Musculoskeletal spine, ribs and pelvis Overall: good posture 05/29/2016 None Full Exam - General 1994 Musculoskeletal head and neck Overall: head atraumatic 05/29/2016 None Full Exam - General 1994 Musculoskeletal head and neck Overall: cervical spine benign 05/29/2016 None Full Exam - General 1994 Integument inspection of skin Overall: few scattered moles, no gross abnormalities 05/29/2016 None Full Exam - General 1994 Neurologic deep tendon reflexes Overall: deep tendon reflexes intact 05/29/2016 None Full Exam - General 1994 Neurologic cranial nerves Overall: crainial nerves 2 - 12 grossly intact 05/29/2016 None Full Exam - General 1994 Psychiatric orientation/consciousness Overall: oriented to person, place and time 05/29/2016 None Full Exam - General 1994 Psychiatric mood and affect Overall: normal mood and affect 05/29/2016 None Full Exam - General 1994 Constitutional general appearance Hygiene/Attention to Grooming: good hygiene 04/19/2016 None Full Exam - General 1994 Eyes conjunctiva/eyelids Overall: conjunctiva clear 04/19/2016 None Full Exam - General 1994 Eyes conjunctiva/eyelids Overall: eyelids normal 04/19/2016 None Full Exam - General 1994 Eyes pupils and irises Overall: pupils equal, round, reactive to light and accomodation 04/19/2016 None Full Exam - General 1994 Ears/Nose/Throat otoscopic exam Overall: external auditory canals clear 04/19/2016 None Full Exam - General 1994 Ears/Nose/Throat otoscopic exam Overall: tympanic membranes clear 04/19/2016 None Full Exam - General 1994 Ears/Nose/Throat lips/teeth/gingiva Overall: benign lips 04/19/2016 None Full Exam - General 1994 Ears/Nose/Throat lips/teeth/gingiva Overall: normal dentition 04/19/2016 None Full Exam - General 1994 Ears/Nose/Throat oral cavity/pharynx/larynx Overall: oral mucosa clear 04/19/2016 None Full Exam - General 1994 Ears/Nose/Throat oral cavity/pharynx/larynx Overall: oropharyngeal mucosa clear 04/19/2016 None Full Exam - General 1994 Ears/Nose/Throat oral cavity/pharynx/larynx Overall: no masses 04/19/2016 None Full Exam - General 1994 Respiratory auscultation Overall: breath sounds clear bilaterally 04/19/2016 None Full Exam - General 1994 Respiratory respiratory effort/rhythm Overall: no retractions 04/19/2016 None Full Exam - General 1994 Respiratory respiratory effort/rhythm Overall: normal rate 04/19/2016 None Full Exam - General 1994 Cardiovascular extremities Overall: no clubbing 04/19/2016 None Full Exam - General 1994 Cardiovascular auscultation of heart Overall: regular rate 04/19/2016 None Full Exam - General 1994 Cardiovascular auscultation of heart Overall: normal heart sounds 04/19/2016 None Full Exam - General 1994 Musculoskeletal spine, ribs and pelvis Overall: good posture 04/19/2016 None Full Exam - General 1994 Musculoskeletal head and neck Overall: head atraumatic 04/19/2016 None Full Exam - General 1994 Integument inspection of skin Overall: few scattered moles, no gross abnormalities 04/19/2016 None Full Exam - General 1994 Neurologic cranial nerves Overall: crainial nerves 2 - 12 grossly intact 04/19/2016 None Full Exam - General 1994 Psychiatric orientation/consciousness Overall: oriented to person, place and time 04/19/2016 None Full Exam - General 1994 Psychiatric mood and affect Overall: normal mood and affect 04/19/2016 None Full Exam - General 1994 Constitutional general appearance Overall: well developed 04/19/2016 None Full Exam - General 1994 Constitutional general appearance Overall: in no acute distress 04/19/2016 None Full Exam - General 1994 Constitutional general appearance Overall: well nourished 04/19/2016 None Full Exam - General 1994 Psychiatric appearance Overall: well-groomed, good eye contact 04/19/2016 None Full Exam - General 1994 Constitutional general appearance Development: well developed 04/17/2016 None Full Exam - General 1994 Constitutional general appearance Development: appears stated age 1204/17/2016 None Full Exam - General 1994 Constitutional general appearance Hygiene/Attention to Grooming: good hygiene 04/17/2016 None Full Exam - General 1994 Eyes conjunctiva/eyelids Overall: conjunctiva clear 04/17/2016 None Full Exam - General 1994 Eyes conjunctiva/eyelids Overall: cornea clear 04/17/2016 None Full Exam - General 1994 Eyes conjunctiva/eyelids Overall: eyelids normal 04/17/2016 None Full Exam - General 1994 Eyes pupils and irises Overall: pupils equal, round, reactive to light and accomodation 04/17/2016 None Full Exam - General 1994 Ears/Nose/Throat otoscopic exam Overall: external auditory canals clear 04/17/2016 None Full Exam - General 1994 Ears/Nose/Throat otoscopic exam Overall: tympanic membranes clear 04/17/2016 None Full Exam - General 1994 Ears/Nose/Throat lips/teeth/gingiva Overall: benign lips 04/17/2016 None Full Exam - General 1994 Ears/Nose/Throat lips/teeth/gingiva Overall: normal dentition 04/17/2016 None Full Exam - General 1994 Ears/Nose/Throat oral cavity/pharynx/larynx Overall: oral mucosa clear 04/17/2016 None Full Exam - General 1994 Ears/Nose/Throat oral cavity/pharynx/larynx Overall: oropharyngeal mucosa clear 04/17/2016 None Full Exam - General 1994 Ears/Nose/Throat oral cavity/pharynx/larynx Overall: hypopharynx benign 04/17/2016 None Full Exam - General 1994 Ears/Nose/Throat oral cavity/pharynx/larynx Overall: no masses 04/17/2016 None Full Exam - General 1994 Respiratory auscultation Overall: breath sounds clear bilaterally 04/17/2016 None Full Exam - General 1994 Respiratory respiratory effort/rhythm Overall: no retractions 04/17/2016 None Full Exam - General 1994 Respiratory respiratory effort/rhythm Overall: normal rate 04/17/2016 None Full Exam - General 1994 Cardiovascular extremities Overall: no clubbing 04/17/2016 None Full Exam - General 1994 Cardiovascular auscultation of heart Overall: regular rate 04/17/2016 None Full Exam - General 1994 Cardiovascular auscultation of heart Overall: normal heart sounds 04/17/2016 None Full Exam - General 1994 Abdomen abdominal exam Overall: no tenderness 04/17/2016 None Full Exam - General 1994 Abdomen abdominal exam Overall: normal bowel sounds 04/17/2016 None Full Exam - General 1994 Lymphatic neck nodes Overall: anterior cervical chain benign 04/17/2016 None Full Exam - General 1994 Lymphatic neck nodes Overall: posterior cervical chain benign 04/17/2016 None Full Exam - General 1994 Musculoskeletal spine, ribs and pelvis Overall: spine benign 04/17/2016 None Full Exam - General 1994 Musculoskeletal spine, ribs and pelvis Overall: sacroiliac joint benign 04/17/2016 None Full Exam - General 1994 Musculoskeletal spine, ribs and pelvis Overall: good posture 04/17/2016 None Full Exam - General 1994 Musculoskeletal head and neck Overall: head atraumatic 04/17/2016 None Full Exam - General 1994 Musculoskeletal head and neck Overall: cervical spine benign 04/17/2016 None Full Exam - General 1994 Integument inspection of skin Overall: few scattered moles, no gross abnormalities 04/17/2016 None Full Exam - General 1994 Neurologic deep tendon reflexes Overall: deep tendon reflexes intact 04/17/2016 None Full Exam - General 1994 Neurologic cranial nerves Overall: crainial nerves 2 - 12 grossly intact 04/17/2016 None Full Exam - General 1994 Psychiatric orientation/consciousness Overall: oriented to person, place and time 04/17/2016 None Full Exam - General 1994 Psychiatric mood and affect Overall: normal mood and affect 04/17/2016 None Full Exam - General 1994 Constitutional general appearance Development: well developed 10/12/2015 None Full Exam - General 1994 Constitutional general appearance Development: appears stated age 0610/12/2015 None Full Exam - General 1994 Constitutional general appearance Hygiene/Attention to Grooming: good hygiene 10/12/2015 None Full Exam - General 1994 Eyes conjunctiva/eyelids Overall: conjunctiva clear 10/12/2015 None Full Exam - General 1994 Eyes conjunctiva/eyelids Overall: cornea clear 10/12/2015 None Full Exam - General 1994 Eyes conjunctiva/eyelids Overall: eyelids normal 10/12/2015 None Full Exam - General 1994 Eyes pupils and irises Overall: pupils equal, round, reactive to light and accomodation 10/12/2015 None Full Exam - General 1994 Ears/Nose/Throat otoscopic exam Overall: external auditory canals clear 10/12/2015 None Full Exam - General 1994 Ears/Nose/Throat otoscopic exam Overall: tympanic membranes clear 10/12/2015 None Full Exam - General 1994 Ears/Nose/Throat lips/teeth/gingiva Overall: benign lips 10/12/2015 None Full Exam - General 1994 Ears/Nose/Throat lips/teeth/gingiva Overall: normal dentition 10/12/2015 None Full Exam - General 1994 Ears/Nose/Throat oral cavity/pharynx/larynx Overall: oral mucosa clear 10/12/2015 None Full Exam - General 1994 Ears/Nose/Throat oral cavity/pharynx/larynx Overall: oropharyngeal mucosa clear 10/12/2015 None Full Exam - General 1994 Ears/Nose/Throat oral cavity/pharynx/larynx Overall: hypopharynx benign 10/12/2015 None Full Exam - General 1994 Ears/Nose/Throat oral cavity/pharynx/larynx Overall: no masses 10/12/2015 None Full Exam - General 1994 Respiratory auscultation Overall: breath sounds clear bilaterally 10/12/2015 None Full Exam - General 1994 Respiratory respiratory effort/rhythm Overall: no retractions 10/12/2015 None Full Exam - General 1994 Respiratory respiratory effort/rhythm Overall: normal rate 10/12/2015 None Full Exam - General 1994 Cardiovascular extremities Overall: no clubbing 10/12/2015 None Full Exam - General 1994 Cardiovascular auscultation of heart Overall: regular rate 10/12/2015 None Full Exam - General 1994 Cardiovascular auscultation of heart Overall: normal heart sounds 10/12/2015 None Full Exam - General 1994 Abdomen abdominal exam Overall: no tenderness 10/12/2015 None Full Exam - General 1994 Abdomen abdominal exam Overall: normal bowel sounds 10/12/2015 None Full Exam - General 1994 Lymphatic neck nodes Overall: anterior cervical chain benign 10/12/2015 None Full Exam - General 1994 Lymphatic neck nodes Overall: posterior cervical chain benign 10/12/2015 None Full Exam - General 1994 Musculoskeletal spine, ribs and pelvis Overall: spine benign 10/12/2015 None Full Exam - General 1994 Musculoskeletal spine, ribs and pelvis Overall: sacroiliac joint benign 10/12/2015 None Full Exam - General 1994 Musculoskeletal spine, ribs and pelvis Overall: good posture 10/12/2015 None Full Exam - General 1994 Musculoskeletal head and neck Overall: head atraumatic 10/12/2015 None Full Exam - General 1994 Musculoskeletal head and neck Overall: cervical spine benign 10/12/2015 None Full Exam - General 1994 Integument inspection of skin Overall: few scattered moles, no gross abnormalities 10/12/2015 None Full Exam - General 1994 Neurologic deep tendon reflexes Overall: deep tendon reflexes intact 10/12/2015 None Full Exam - General 1994 Neurologic cranial nerves Overall: crainial nerves 2 - 12 grossly intact 10/12/2015 None Full Exam - General 1994 Psychiatric orientation/consciousness Overall: oriented to person, place and time 10/12/2015 None Full Exam - General 1994 Psychiatric mood and affect Overall: normal mood and affect 10/12/2015 None Full Exam - General 1994 Constitutional general appearance Development: well developed 07/11/2015 None Full Exam - General 1994 Constitutional general appearance Development: appears stated age 0307/11/2015 None Full Exam - General 1994 Constitutional general appearance Hygiene/Attention to Grooming: good hygiene 07/11/2015 None Full Exam - General 1994 Eyes conjunctiva/eyelids Overall: conjunctiva clear 07/11/2015 None Full Exam - General 1994 Eyes conjunctiva/eyelids Overall: cornea clear 07/11/2015 None Full Exam - General 1994 Eyes conjunctiva/eyelids Overall: eyelids normal 07/11/2015 None Full Exam - General 1994 Eyes pupils and irises Overall: pupils equal, round, reactive to light and accomodation 07/11/2015 None Full Exam - General 1994 Ears/Nose/Throat otoscopic exam Overall: external auditory canals clear 07/11/2015 None Full Exam - General 1994 Ears/Nose/Throat otoscopic exam Overall: tympanic membranes clear 07/11/2015 None Full Exam - General 1994 Ears/Nose/Throat lips/teeth/gingiva Overall: benign lips 07/11/2015 None Full Exam - General 1994 Ears/Nose/Throat lips/teeth/gingiva Overall: normal dentition 07/11/2015 None Full Exam - General 1994 Ears/Nose/Throat oral cavity/pharynx/larynx Overall: oral mucosa clear 07/11/2015 None Full Exam - General 1994 Ears/Nose/Throat oral cavity/pharynx/larynx Overall: oropharyngeal mucosa clear 07/11/2015 None Full Exam - General 1994 Ears/Nose/Throat oral cavity/pharynx/larynx Overall: hypopharynx benign 07/11/2015 None Full Exam - General 1994 Ears/Nose/Throat oral cavity/pharynx/larynx Overall: no masses 07/11/2015 None Full Exam - General 1994 Respiratory auscultation Overall: breath sounds clear bilaterally 07/11/2015 None Full Exam - General 1994 Respiratory respiratory effort/rhythm Overall: no retractions 07/11/2015 None Full Exam - General 1994 Respiratory respiratory effort/rhythm Overall: normal rate 07/11/2015 None Full Exam - General 1994 Cardiovascular extremities Overall: no clubbing 07/11/2015 None Full Exam - General 1994 Cardiovascular auscultation of heart Overall: regular rate 07/11/2015 None Full Exam - General 1994 Cardiovascular auscultation of heart Overall: normal heart sounds 07/11/2015 None Full Exam - General 1994 Abdomen abdominal exam Overall: no tenderness 07/11/2015 None Full Exam - General 1994 Abdomen abdominal exam Overall: normal bowel sounds 07/11/2015 None Full Exam - General 1994 Lymphatic neck nodes Overall: anterior cervical chain benign 07/11/2015 None Full Exam - General 1994 Lymphatic neck nodes Overall: posterior cervical chain benign 07/11/2015 None Full Exam - General 1994 Musculoskeletal spine, ribs and pelvis Overall: spine benign 07/11/2015 None Full Exam - General 1994 Musculoskeletal spine, ribs and pelvis Overall: sacroiliac joint benign 07/11/2015 None Full Exam - General 1994 Musculoskeletal spine, ribs and pelvis Overall: good posture 07/11/2015 None Full Exam - General 1994 Musculoskeletal head and neck Overall: head atraumatic 07/11/2015 None Full Exam - General 1994 Musculoskeletal head and neck Overall: cervical spine benign 07/11/2015 None Full Exam - General 1994 Integument inspection of skin Overall: few scattered moles, no gross abnormalities 07/11/2015 None Full Exam - General 1994 Neurologic deep tendon reflexes Overall: deep tendon reflexes intact 07/11/2015 None Full Exam - General 1994 Neurologic cranial nerves Overall: crainial nerves 2 - 12 grossly intact 07/11/2015 None Full Exam - General 1994 Psychiatric orientation/consciousness Overall: oriented to person, place and time 07/11/2015 None Full Exam - General 1994 Psychiatric mood and affect Overall: normal mood and affect 07/11/2015 None Full Exam - General 1994 Constitutional general appearance Development: well developed 05/16/2015 None Full Exam - General 1994 Constitutional general appearance Development: appears stated age 0105/16/2015 None Full Exam - General 1994 Constitutional general appearance Hygiene/Attention to Grooming: good hygiene 05/16/2015 None Full Exam - General 1994 Eyes conjunctiva/eyelids Overall: conjunctiva clear 05/16/2015 None Full Exam - General 1994 Eyes conjunctiva/eyelids Overall: cornea clear 05/16/2015 None Full Exam - General 1994 Eyes conjunctiva/eyelids Overall: eyelids normal 05/16/2015 None Full Exam - General 1994 Eyes pupils and irises Overall: pupils equal, round, reactive to light and accomodation 05/16/2015 None Full Exam - General 1994 Ears/Nose/Throat otoscopic exam Overall: external auditory canals clear 05/16/2015 None Full Exam - General 1994 Ears/Nose/Throat otoscopic exam Overall: tympanic membranes clear 05/16/2015 None Full Exam - General 1994 Ears/Nose/Throat lips/teeth/gingiva Overall: benign lips 05/16/2015 None Full Exam - General 1994 Ears/Nose/Throat lips/teeth/gingiva Overall: normal dentition 05/16/2015 None Full Exam - General 1994 Ears/Nose/Throat oral cavity/pharynx/larynx Overall: oral mucosa clear 05/16/2015 None Full Exam - General 1994 Ears/Nose/Throat oral cavity/pharynx/larynx Overall: oropharyngeal mucosa clear 05/16/2015 None Full Exam - General 1994 Ears/Nose/Throat oral cavity/pharynx/larynx Overall: hypopharynx benign 05/16/2015 None Full Exam - General 1994 Ears/Nose/Throat oral cavity/pharynx/larynx Overall: no masses 05/16/2015 None Full Exam - General 1994 Respiratory auscultation Overall: breath sounds clear bilaterally 05/16/2015 None Full Exam - General 1994 Respiratory respiratory effort/rhythm Overall: no retractions 05/16/2015 None Full Exam - General 1994 Respiratory respiratory effort/rhythm Overall: normal rate 05/16/2015 None Full Exam - General 1994 Cardiovascular extremities Overall: no clubbing 05/16/2015 None Full Exam - General 1994 Cardiovascular auscultation of heart Overall: regular rate 05/16/2015 None Full Exam - General 1994 Cardiovascular auscultation of heart Overall: normal heart sounds 05/16/2015 None Full Exam - General 1994 Abdomen abdominal exam Overall: no tenderness 05/16/2015 None Full Exam - General 1994 Abdomen abdominal exam Overall: normal bowel sounds 05/16/2015 None Full Exam - General 1994 Lymphatic neck nodes Overall: anterior cervical chain benign 05/16/2015 None Full Exam - General 1994 Lymphatic neck nodes Overall: posterior cervical chain benign 05/16/2015 None Full Exam - General 1994 Musculoskeletal spine, ribs and pelvis Overall: spine benign 05/16/2015 None Full Exam - General 1994 Musculoskeletal spine, ribs and pelvis Overall: sacroiliac joint benign 05/16/2015 None Full Exam - General 1994 Musculoskeletal spine, ribs and pelvis Overall: good posture 05/16/2015 None Full Exam - General 1994 Musculoskeletal head and neck Overall: head atraumatic 05/16/2015 None Full Exam - General 1994 Musculoskeletal head and neck Overall: cervical spine benign 05/16/2015 None Full Exam - General 1994 Integument inspection of skin Overall: few scattered moles, no gross abnormalities 05/16/2015 None Full Exam - General 1994 Neurologic deep tendon reflexes Overall: deep tendon reflexes intact 05/16/2015 None Full Exam - General 1994 Neurologic cranial nerves Overall: crainial nerves 2 - 12 grossly intact 05/16/2015 None Full Exam - General 1994 Psychiatric orientation/consciousness Overall: oriented to person, place and time 05/16/2015 None Full Exam - General 1994 Psychiatric mood and affect Overall: normal mood and affect 05/16/2015 None Full Exam - General 1994 Constitutional general appearance Development: well developed 11/03/2014 None Full Exam - General 1994 Constitutional general appearance Development: appears stated age 0611/03/2014 None Full Exam - General 1994 Constitutional general appearance Hygiene/Attention to Grooming: good hygiene 11/03/2014 None Full Exam - General 1994 Eyes conjunctiva/eyelids Overall: conjunctiva clear 11/03/2014 None Full Exam - General 1994 Eyes conjunctiva/eyelids Overall: cornea clear 11/03/2014 None Full Exam - General 1994 Eyes conjunctiva/eyelids Overall: eyelids normal 11/03/2014 None Full Exam - General 1994 Eyes pupils and irises Overall: pupils equal, round, reactive to light and accomodation 11/03/2014 None Full Exam - General 1994 Ears/Nose/Throat otoscopic exam Overall: external auditory canals clear 11/03/2014 None Full Exam - General 1994 Ears/Nose/Throat otoscopic exam Overall: tympanic membranes clear 11/03/2014 None Full Exam - General 1994 Ears/Nose/Throat lips/teeth/gingiva Overall: benign lips 11/03/2014 None Full Exam - General 1994 Ears/Nose/Throat lips/teeth/gingiva Overall: normal dentition 11/03/2014 None Full Exam - General 1994 Ears/Nose/Throat oral cavity/pharynx/larynx Overall: oral mucosa clear 11/03/2014 None Full Exam - General 1994 Ears/Nose/Throat oral cavity/pharynx/larynx Overall: oropharyngeal mucosa clear 11/03/2014 None Full Exam - General 1994 Ears/Nose/Throat oral cavity/pharynx/larynx Overall: hypopharynx benign 11/03/2014 None Full Exam - General 1994 Ears/Nose/Throat oral cavity/pharynx/larynx Overall: no masses 11/03/2014 None Full Exam - General 1994 Respiratory auscultation Overall: breath sounds clear bilaterally 11/03/2014 None Full Exam - General 1994 Respiratory respiratory effort/rhythm Overall: no retractions 11/03/2014 None Full Exam - General 1994 Respiratory respiratory effort/rhythm Overall: normal rate 11/03/2014 None Full Exam - General 1994 Cardiovascular extremities Overall: no clubbing 11/03/2014 None Full Exam - General 1994 Cardiovascular auscultation of heart Overall: regular rate 11/03/2014 None Full Exam - General 1994 Cardiovascular auscultation of heart Overall: normal heart sounds 11/03/2014 None Full Exam - General 1994 Abdomen abdominal exam Overall: no tenderness 11/03/2014 None Full Exam - General 1994 Abdomen abdominal exam Overall: normal bowel sounds 11/03/2014 None Full Exam - General 1994 Lymphatic neck nodes Overall: anterior cervical chain benign 11/03/2014 None Full Exam - General 1994 Lymphatic neck nodes Overall: posterior cervical chain benign 11/03/2014 None Full Exam - General 1994 Musculoskeletal spine, ribs and pelvis Overall: spine benign 11/03/2014 None Full Exam - General 1994 Musculoskeletal spine, ribs and pelvis Overall: sacroiliac joint benign 11/03/2014 None Full Exam - General 1994 Musculoskeletal spine, ribs and pelvis Overall: good posture 11/03/2014 None Full Exam - General 1994 Musculoskeletal head and neck Overall: head atraumatic 11/03/2014 None Full Exam - General 1994 Musculoskeletal head and neck Overall: cervical spine benign 11/03/2014 None Full Exam - General 1994 Integument inspection of skin Overall: few scattered moles, no gross abnormalities 11/03/2014 None Full Exam - General 1994 Neurologic deep tendon reflexes Overall: deep tendon reflexes intact 11/03/2014 None Full Exam - General 1994 Neurologic cranial nerves Overall: crainial nerves 2 - 12 grossly intact 11/03/2014 None Full Exam - General 1994 Psychiatric orientation/consciousness Overall: oriented to person, place and time 11/03/2014 None Full Exam - General 1994 Psychiatric mood and affect Overall: normal mood and affect 11/03/2014 None Procedures Procedure Codes Date TRIAMCINOLONE ACET I [place] NOS CPT-4: J3301 09/08/2018 ROCEPHIN, PER 250 MG CPT-4: J0696 09/08/2018 DRAIN/INJECT JOINT/B URSA CPT-4: 06344 12/05/2016 TRIAMCINOLONE ACET I [place] NOS CPT-4: J3301 12/05/2016 DESTRUCT PREMALG LESION CPT-4: 26776 10/22/2016 PPPS, SUBSEQ VISIT CPT- 4: G0439 04/19/2016 Vital Signs Date Vital 10/21/2018 Blood Pressure 1: 112/60 Code: 8480-6 BMI: 33.7 Code: 99139-7 Heart Rate 1: 65 bpm Height: 5'3" SpO2: 96% Weight: 190 lbs 09/08/2018 Blood Pressure 1: 136/78 Code: 8480-6 BMI: 33.7 Code: 32379-5 Heart Rate 1: 53 bpm Height: 5'3" SpO2: 95% Temperature: 36.4 (C ) / 97.5 (F) Weight: 190 lbs 06/18/2018 Blood Pressure 1: 130/70 Code: 8480-6 BMI: 33.5 Code: 51811-8 Heart Rate 1: 72 bpm Height: 5'3" SpO2: 97% Weight: 189 lbs 02/18/2018 Blood Pressure 1: 100/52 Code: 8480-6 BMI: 31.9 Code: 92617-3 Heart Rate 1: 92 bpm Height: 5'3" SpO2: 90% Temperature: 36.6 (C ) / 97.9 (F) Weight: 180 lbs 01/08/2018 Blood Pressure 1: 140/80 Code: 8480-6 BMI: 32.6 Code: 38013-6 Heart Rate 1: 82 bpm Height: 5'3" SpO2: 92% Weight: 184 lbs 09/09/2017 Blood Pressure 1: 118/62 Code: 8480-6 BMI: 32.4 Code: 08931-0 Heart Rate 1: 80 bpm Height: 5'3" SpO2: 94% Weight: 183 lbs 03/25/2017 Blood Pressure 1: 122/68 Code: 8480-6 BMI: 31.2 Code: 63608-5 Heart Rate 1: 91 bpm Height: 5'3" SpO2: 95% Weight: 176 lbs 12/16/2016 Blood Pressure 1: 148/82 Code: 8480-6 Heart Rate 1: 77 bpm Height: 5'3" SpO2: 96% 12/05/2016 Blood Pressure 1: 138/72 Code: 8480-6 Heart Rate 1: 84 bpm Height: 5'3" SpO2: 92% Weight: 10/22/2016 Blood Pressure 1: 136/78 Code: 8480-6 BMI: 30.1 Code: 57701-8 Heart Rate 1: 70 bpm Height: 5'3" SpO2: 95% Weight: 170 lbs 09/25/2016 Blood Pressure 1: 122/72 Code: 8480-6 BMI: 29.8 Code: 16307-7 Heart Rate 1: 67 bpm Height: 5'3" SpO2: 97% Weight: 168 lbs 05/29/2016 Blood Pressure 1: 112/70 Code: 8480-6 BMI: 27.8 Code: 35165-2 Heart Rate 1: 102 bpm Height: 5'3" SpO2: 98% Weight: 157 lbs 04/19/2016 Blood Pressure 1: 128/58 Code: 8480-6 BMI: 28.5 Code: 29134-3 Heart Rate 1: 85 bpm Height: 5'3" SpO2: 98% Waist Measure (cm): 81 cm Weight: 161 lbs 04/17/2016 Blood Pressure 1: 128/82 Code: 8480-6 BMI: 28.5 Code: 61725-8 Heart Rate 1: 85 bpm Height: 5'3" SpO2: 98% Weight: 161 lbs 10/12/2015 Blood Pressure 1: 124/68 Code: 8480-6 BMI: 28.2 Code: 10948-6 Heart Rate 1: 72 bpm Height: 5'3" SpO2: 98% Weight: 159 lbs 07/11/2015 Blood Pressure 1: 128/88 Code: 8480-6 BMI: 28.5 Code: 21512-3 Heart Rate 1: 73 bpm Height: 5'3" SpO2: 93% Weight: 161 lbs 05/16/2015 Blood Pressure 1: 120/82 Code: 8480-6 BMI: 28.3 Code: 62222-4 Heart Rate 1: 82 bpm Height: 5'3" SpO2: 93% Weight: 160 lbs 11/03/2014 Blood Pressure 1: 132/74 Code: 8480-6 BMI: 27.6 Code: 63615-9 Heart Rate 1: 80 bpm Height: 5'3" SpO2: 98% Weight: 156 lbs Functional Status No Functional Status data History of Present Illness Symptom Name Status Resu lt Effective Date Notes Quality primary hypert ension 10/21/2018 None Quality stable 10/21/2018 None Onset and Resolution o ngoing 10/21/2018 None Onset of Symptom durin g adulthood 10/21/2018 None Blood Pressure Values patient checking blood pressure at home - did not bring in readings 10/21/2018 -Checks occasionally Severity mild 10/21/2018 None Alleviating Factors me dication 10/21/2018 None Pertinent Findings Den ies anxiety 10/21/2018 None Pertinent Findings Den ies decreased energy 10/21/2018 None Pertinent Findings Den ies dizziness 10/21/2018 None Pertinent Findings Den ies dyspnea 10/21/2018 None Pertinent Findings Den ies edema 10/21/2018 None Onset and Resolution o ngoing 10/21/2018 None Onset of Symptom _ mon ths ago 10/21/2018 None Pertinent Findings Den ies difficulty reading 10/21/2018 None Pertinent Findings Den ies difficulty writing 10/21/2018 None Location on the right 10/21/2018 None Quality Denies constant 10/21/2018 None Onset and Resolution o ngoing 10/21/2018 None Pertinent Findings lloyd n with movement 10/21/2018 None Frequency of Episodes unchanged 10/21/2018 None Location in the lung 09/08/2018 None Location in the throat 09/08/2018 None Quality acute 09/08/2018 None Onset and Resolution r esolved 09/08/2018 None Onset of Symptom 5 day s ago 09/08/2018 None Limitation on Activities moderately limits activities 09/08/2018 None Frequency of Episodes increasing 09/08/2018 None Triggers no known asso ciated factors 09/08/2018 None Significant Medications albuterol 09/08/2018 None Alleviating Factors in haled medications 09/08/2018 None Pertinent Findings Den ies dyspnea 09/08/2018 None Pertinent Findings Den ies fever 09/08/2018 None Pertinent Findings Den ies vomiting 09/08/2018 None Quality primary hypert ension 06/18/2018 None Quality stable 06/18/2018 None Onset and Resolution o ngoing 06/18/2018 None Onset of Symptom durin g adulthood 06/18/2018 None Blood Pressure Values patient checking blood pressure at home - did not bring in readings 06/18/2018 -Checks occasionally Alleviating Factors me dication 06/18/2018 None Pertinent Findings Den ies anxiety 06/18/2018 None Pertinent Findings Den ies decreased energy 06/18/2018 None Pertinent Findings Den ies dizziness 06/18/2018 None Pertinent Findings Den ies dyspnea 06/18/2018 None Pertinent Findings Den ies edema 06/18/2018 None Severity mild 06/18/2018 None Onset and Resolution o ngoing 06/18/2018 None Onset of Symptom _ mon ths ago 06/18/2018 None Frequency of Episodes increasing 06/18/2018 None Pertinent Findings Den ies difficulty writing 06/18/2018 None Pertinent Findings Den ies difficulty reading 06/18/2018 None Location on the right 06/18/2018 None Quality Denies constant 06/18/2018 None Onset and Resolution o ngoing 06/18/2018 None Pertinent Findings lloyd n with movement 06/18/2018 None cough Location in the aflie ng 02/18/2018 None cough Quality constant 02/18/2018 None cough Quality hacking 02/18/2018 None cough Onset and Resolution sudden in onset 02/18/2018 None cough Onset of Symptom 4 days ago 02/18/2018 None cough Frequency of Episodes daily 02/18/2018 None chest congestion Quality constant 02/18/2018 None chest congestion Onset and Resolution sudden in onset 02/18/2018 None chest congestion Onset of Symptom 4 days ago 02/18/2018 None chest congestion Pertinent Findings cough 02/18/2018 None chest congestion Pertinent Findings decreased energy 02/18/2018 None hypertension Quality esthela garry hypertension 01/08/2018 None hypertension Quality sta ble 01/08/2018 None hypertension Onset and Resolution ongoing 01/08/2018 None hypertension Onset of Symptom during adulthood 01/08/2018 None hypertension Blood Pressure Values patient checking blood pressure at home - did not bring in readings 01/08/2018 -Checks occasionally hypertension Severity mi ld 01/08/2018 None hypertension Alleviating Factors medication 01/08/2018 None hypertension Pertinent Findings Denies anxiety 01/08/2018 None hypertension Pertinent Findings Denies decreased energy 01/08/2018 None hypertension Pertinent Findings Denies dizziness 01/08/2018 None hypertension Pertinent Findings Denies dyspnea 01/08/2018 None hypertension Pertinent Findings Denies edema 01/08/2018 None hyperlipidemia Onset and Resolution gradual in onset 01/08/2018 None hyperlipidemia Onset and Resolution ongoing 01/08/2018 None hyperlipidemia Onset of Symptom during adulthood 01/08/2018 None hyperlipidemia Alleviating Factors medication 01/08/2018 None hyperlipidemia Exacerbating Factors diet 01/08/2018 None hypertension Quality esthela garry hypertension 09/09/2017 None hypertension Quality sta ble 09/09/2017 None hypertension Onset and Resolution ongoing 09/09/2017 None hypertension Onset of Symptom during adulthood 09/09/2017 None hypertension Blood Pressure Values patient checking blood pressure at home - did not bring in readings 09/09/2017 -Checks occasionally hypertension Severity mi ld 09/09/2017 None hypertension Alleviating Factors medication 09/09/2017 None hypertension Pertinent Findings Denies anxiety 09/09/2017 None hypertension Pertinent Findings Denies decreased energy 09/09/2017 None hypertension Pertinent Findings Denies dizziness 09/09/2017 None hypertension Pertinent Findings Denies dyspnea 09/09/2017 None hypertension Pertinent Findings Denies edema 09/09/2017 None hyperlipidemia Onset and Resolution gradual in onset 09/09/2017 None hyperlipidemia Onset and Resolution ongoing 09/09/2017 None hyperlipidemia Onset of Symptom during adulthood 09/09/2017 None hyperlipidemia Alleviating Factors medication 09/09/2017 None hyperlipidemia Exacerbating Factors diet 09/09/2017 None hip pain Location on the right 09/09/2017 None hip pain Quality constant 09/09/2017 None hip pain Onset and Resolution ongoing 09/09/2017 None hip pain Onset of Symptom months ago 09/09/2017 None hip pain Limitation on Activities allows weight bearing activity 09/09/2017 None hip pain Severity mild 09/09/2017 None hip pain Alleviating Factors rest 09/09/2017 None hip pain Exacerbating Factors activity 09/09/2017 None hip pain Location on the left 09/09/2017 None hip pain Pertinent Findings Denies decreased range of motion 09/09/2017 None hip pain Pertinent Findings Denies numbness 09/09/2017 None hip pain Pertinent Findings pain at rest 09/09/2017 None hip pain Pertinent Findings pain with movement 09/09/2017 None hip pain Pertinent Findings Denies swelling 09/09/2017 None hip pain Pertinent Findings tingling 09/09/2017 None hip pain Pertinent Findings weakness 09/09/2017 None hypertension Quality esthela garry hypertension 03/25/2017 None hypertension Quality sta ble 03/25/2017 None hypertension Onset and Resolution ongoing 03/25/2017 None hypertension Onset of Symptom during adulthood 03/25/2017 None hypertension Blood Pressure Values patient checking blood pressure at home - did not bring in readings 03/25/2017 -Checks occasionally hypertension Severity mi ld 03/25/2017 None hypertension Alleviating Factors medication 03/25/2017 None hypertension Pertinent Findings Denies dizziness 03/25/2017 None hypertension Pertinent Findings Denies dyspnea 03/25/2017 None hypertension Pertinent Findings Denies edema 03/25/2017 None hyperlipidemia Onset and Resolution gradual in onset 03/25/2017 None hyperlipidemia Onset and Resolution ongoing 03/25/2017 None hyperlipidemia Onset of Symptom during adulthood 03/25/2017 None hyperlipidemia Alleviating Factors medication 03/25/2017 None hyperlipidemia Exacerbating Factors diet 03/25/2017 None hip pain Location on the right 03/25/2017 None hip pain Quality constant 03/25/2017 None hip pain Onset and Resolution ongoing 03/25/2017 None hip pain Onset of Symptom months ago 03/25/2017 None hip pain Limitation on Activities allows weight bearing activity 03/25/2017 None hip pain Severity mild 03/25/2017 None hip pain Alleviating Factors rest 03/25/2017 None hip pain Exacerbating Factors activity 03/25/2017 None hypertension Pertinent Findings Denies decreased energy 03/25/2017 None hypertension Pertinent Findings Denies anxiety 03/25/2017 None sciatica Location on the left 12/16/2016 None sciatica Quality aching 12/16/2016 None sciatica Quality burning 12/16/2016 None sciatica Quality constant 12/16/2016 None sciatica Onset and Resolution sudden in onset 12/16/2016 None sciatica Onset of Symptom 2 days ago 12/16/2016 None sciatica Frequency of Episodes daily 12/16/2016 None sciatica Significant Medical Conditions spinal stenosis 12/16/2016 None sciatica Triggers no kno wn associated factors 12/16/2016 None sciatica Exacerbating Factors activity 12/16/2016 None sciatica Location on the left 12/05/2016 None sciatica Quality aching 12/05/2016 None sciatica Quality burning 12/05/2016 None sciatica Quality constant 12/05/2016 None sciatica Onset and Resolution sudden in onset 12/05/2016 None sciatica Onset of Symptom 2 days ago 12/05/2016 None sciatica Frequency of Episodes daily 12/05/2016 None skin lesion Quality acute 10/22/2016 None skin lesion Quality scab bed 10/22/2016 None skin lesion Quality eryt hematous 10/22/2016 None skin lesion Quality fixed 10/22/2016 None skin lesion Quality non- tender 10/22/2016 None skin lesion Quality rais ed 10/22/2016 None skin lesion Quality red 10/22/2016 None skin lesion Location lg st 10/22/2016 None skin lesion Onset and Resolution sudden in onset 10/22/2016 None skin lesion Onset of Symptom 2 weeks ago 10/22/2016 None skin lesion Pertinent Findings family history of neurocutaneous disorders 10/22/2016 None skin lesion Significant Medical Conditions neurocutaneous disorders 10/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 None skin lesion Triggers sun exposure 10/22/2016 None hypertension Onset and Resolution ongoing 09/25/2016 None hypertension Blood Pressure Values patient checking blood pressure at home - did not bring in readings 09/25/2016 -Checks occasionally hypertension Severity mi ld 09/25/2016 None hypertension Alleviating Factors medication 09/25/2016 None hypertension Pertinent Findings Denies dizziness 09/25/2016 None hypertension Pertinent Findings Denies dyspnea 09/25/2016 None hypertension Pertinent Findings Denies edema 09/25/2016 None hyperlipidemia Onset and Resolution gradual in onset 09/25/2016 None hyperlipidemia Onset and Resolution ongoing 09/25/2016 None hyperlipidemia Onset of Symptom during adulthood 09/25/2016 None hyperlipidemia Alleviating Factors medication 09/25/2016 None hyperlipidemia Exacerbating Factors diet 09/25/2016 None hip pain Location on the right 09/25/2016 None hip pain Onset and Resolution ongoing 09/25/2016 None hip pain Limitation on Activities allows weight bearing activity 09/25/2016 None hip pain Severity mild 09/25/2016 None hypertension Quality esthela garry hypertension 09/25/2016 None hypertension Onset of Symptom during adulthood 09/25/2016 None hip pain Quality constant 09/25/2016 None hip pain Onset of Symptom months ago 09/25/2016 None hip pain Alleviating Factors rest 09/25/2016 None hip pain Exacerbating Factors activity 09/25/2016 None hypertension Quality sta ble 09/25/2016 None hypertension Quality int ermittent 05/29/2016 None hypertension Onset and Resolution ongoing 05/29/2016 None hypertension Severity mi ld 05/29/2016 None hypertension Frequency of Episodes unchanged 05/29/2016 None hypertension Triggers no known associated factors 05/29/2016 None hypertension Alleviating Factors medication 05/29/2016 None hypertension Pertinent Findings Denies dizziness 05/29/2016 None hypertension Pertinent Findings Denies dyspnea 05/29/2016 None hypertension Pertinent Findings Denies edema 05/29/2016 None hyperlipidemia Onset and Resolution gradual in onset 05/29/2016 None hyperlipidemia Onset and Resolution ongoing 05/29/2016 None hyperlipidemia Onset of Symptom during adulthood 05/29/2016 None hyperlipidemia Alleviating Factors medication 05/29/2016 None hyperlipidemia Exacerbating Factors diet 05/29/2016 None hip pain Location on the right 05/29/2016 None hip pain Quality intermi ttent 05/29/2016 None hip pain Onset and Resolution ongoing 05/29/2016 None hip pain Onset of Symptom 4-5 months ago 05/29/2016 None hip pain Limitation on Activities allows weight bearing activity 05/29/2016 None hip pain Alleviating Factors rest 05/29/2016 injection hip pain Quality improvi ng 05/29/2016 None hip pain Severity mild 05/29/2016 None hypertension Blood Pressure Values patient checking blood pressure at home - did not bring in readings 05/29/2016 None Annual Medicare Wellness Exam Alcohol Use does not drink any alcohol 04/19/2016 None Annual Medicare Wellness Exam Aspirin Use no 04/19/2016 None Annual Medicare Wellness Exam Blood Glucose (self reported) don't know 04/19/2016 No ne Annual Medicare Wellness Exam Blood Pressure (self reported) high (140/90 or higher) 04/19/2016 None Annual Medicare Wellness Exam Choles terol (self reported) desireable (below 200) 04/19/2016 None Annual Medicare Wellness Exam Depres josseline (last 6 months) some of the time 04/19/2016 None Annual Medicare Wellness Exam Depres josseline or Hopelessness almost never 04/19/2016 None Annual Medicare Wellness Exam Descri be Your Health very good 04/19/2016 Non e Annual Medicare Wellness Exam Exerci se Habits does not exercise 04/19/2016 None Annual Medicare Wellness Exam Handli ng Stress usually juliann effectively 04/19/2016 None Annual Medicare Wellness Exam Hemagl obin A-1C (self reported) don't know 04/19/2016 No ne Annual Medicare Wellness Exam Hours of Sleep 8 04/19/2016 None Annual Medicare Wellness Exam Intera ction with Friends yes 04/19/2016 None Annual Medicare Wellness Exam Intere sts & Pleasure some of the time 04/19/2016 None Annual Medicare Wellness Exam Life S atisfaction very satisfied 04/19/2016 None Annual Medicare Wellness Exam Motor Vehicle Safety always fastens seat belt: y 04/19/20 16 None Annual Medicare Wellness Exam Motor Vehicle Safety drives after drinking: n 04/19/2016 None Annual Medicare Wellness Exam Motor Vehicle Safety rides with someone who has been drinking: n 04/19/2016 None Annual Medicare Wellness Exam Nutrition servings of fried food / high fat foods per day: 0 04/19/2016 None Annual Medicare Wellness Exam Nutrition servings of high fiber / whole grain per day: 1 04/19/2016 None Annual Medicare Wellness Exam Nutrition servings of vegetables / fruit per day: 2 04/19/2016 None Annual Medicare Wellness Exam Smokin g and Tobacco Use non smoker 04/19/2016 No ne Annual Medicare Wellness Exam Social & Emotional Support always 04/19/2016 None Annual Medicare Wellness Exam Stress some of the time 04/19/2016 None Annual Medicare Wellness Exam Sun Exposure protects skin when outdoors: y 04/19/2016 None hypertension Quality int ermittent 04/17/2016 None hypertension Onset and Resolution ongoing 04/17/2016 None hypertension Blood Pressure Values not checking blood pressure at home 04/17/2016 None hypertension Severity mi ld 04/17/2016 None hypertension Frequency of Episodes unchanged 04/17/2016 None hypertension Triggers no known associated factors 04/17/2016 None hypertension Alleviating Factors medication 04/17/2016 None hypertension Pertinent Findings Denies dizziness 04/17/2016 None hypertension Pertinent Findings Denies dyspnea 04/17/2016 None hypertension Pertinent Findings Denies edema 04/17/2016 None hip pain Location on the right 04/17/2016 None hip pain Quality sharp p ain 04/17/2016 None hip pain Quality tendern ess 04/17/2016 None hip pain Quality acute 04/17/2016 None hip pain Quality intermi ttent 04/17/2016 None hip pain Onset and Resolution ongoing 04/17/2016 None hip pain Onset of Symptom 4-5 months ago 04/17/2016 None hip pain Limitation on Activities allows weight bearing activity 04/17/2016 None hip pain Limitation on Activities moderately limits activities 04/17/2016 None hip pain Limitation on Activities limits quality of life 04/17/2016 None hip pain Severity severe 04/17/2016 None hip pain Alleviating Factors rest 04/17/2016 None hip pain Alleviating Factors non weight bearing 04/17/2016 None hip pain Exacerbating Factors exertion 04/17/2016 None hip pain Exacerbating Factors flexion 04/17/2016 None hip pain Exacerbating Factors weight bearing 04/17/2016 None hip pain Pertinent Findings pain with movement 04/17/2016 None hyperlipidemia Onset and Resolution gradual in onset 04/17/2016 None hyperlipidemia Onset and Resolution ongoing 04/17/2016 None hyperlipidemia Onset of Symptom during adulthood 04/17/2016 None hyperlipidemia Alleviating Factors medication 04/17/2016 None hyperlipidemia Exacerbating Factors diet 04/17/2016 None back pain Location lumba r-sacral spine 10/12/2015 right side back pain Quality interm ittent 10/12/2015 None back pain Onset and Resolution ongoing 10/12/2015 None back pain Onset and Resolution worse in the morning 10/12/2015 None back pain Onset of Symptom 1 years ago 10/12/2015 None back pain Limitation on Activities does not limit activities 10/12/2015 None back pain Alleviating Factors rest 10/12/2015 None back pain Initial treatment medication 10/12/2015 None back pain Radiating down the right leg 10/12/2015 None back pain Severity moder ate 10/12/2015 None back pain Pertinent Findings Denies extremity numbness 10/12/2015 None back pain Pertinent Findings Denies extremity weakness 10/12/2015 None hypertension Quality int ermittent 10/12/2015 None hypertension Onset and Resolution ongoing 10/12/2015 None hypertension Severity mi ld 10/12/2015 None hypertension Frequency of Episodes unchanged 10/12/2015 None hypertension Triggers no known associated factors 10/12/2015 None hypertension Alleviating Factors medication 10/12/2015 None hypertension Pertinent Findings dizziness 10/12/2015 -reports that she was jose ing too many blood pressure medications so she cut them back hypertension Pertinent Findings Denies dyspnea 10/12/2015 None hypertension Pertinent Findings Denies edema 10/12/2015 None hypertension Blood Pressure Values not checking blood pressure at home 10/12/2015 None back pain Quality improv ing 10/12/2015 None back pain Frequency of Episodes decreasing 10/12/2015 None back pain Alleviating Factors medication 10/12/2015 None back pain Exacerbating Factors activity 10/12/2015 None back pain Exacerbating Factors exertion 10/12/2015 None memory loss Onset and Resolution ongoing 10/12/2015 None memory loss Onset of Symptom during adulthood 10/12/2015 None back pain Location lumba r-sacral spine 07/11/2015 right side back pain Quality consta nt 07/11/2015 None back pain Onset and Resolution ongoing 07/11/2015 None back pain Onset and Resolution worse in the morning 07/11/2015 None back pain Onset of Symptom 1 years ago 07/11/2015 None back pain Limitation on Activities does not limit activities 07/11/2015 None back pain Frequency of Episodes increasing 07/11/2015 pain worsening over the p ast year back pain Alleviating Factors rest 07/11/2015 some relief laying flat w ith pillow under knees back pain Exacerbating Factors medication 07/11/2015 None back pain Initial treatment medication 07/11/2015 None back pain Radiating down the right leg 07/11/2015 None back pain Severity moder ate 07/11/2015 None back pain Pertinent Findings Denies extremity numbness 07/11/2015 None back pain Pertinent Findings Denies extremity weakness 07/11/2015 None hypertension Quality int ermittent 07/11/2015 None hypertension Onset and Resolution ongoing 07/11/2015 None hypertension Severity mi ld 07/11/2015 None hypertension Pertinent Findings Denies dizziness 07/11/2015 None hypertension Pertinent Findings Denies dyspnea 07/11/2015 None hypertension Pertinent Findings Denies edema 07/11/2015 None back pain Quality interm ittent 07/11/2015 None back pain Pertinent Findings Denies sleep disturbance 07/11/2015 None hypertension Frequency of Episodes unchanged 07/11/2015 None hypertension Triggers no known associated factors 07/11/2015 None hypertension Alleviating Factors medication 07/11/2015 None back pain Location lumba r-sacral spine 05/16/2015 right side back pain Pertinent Findings Denies extremity numbness 05/16/2015 None back pain Pertinent Findings Denies extremity weakness 05/16/2015 None back pain Radiating down the right leg 05/16/2015 None back pain Onset of Symptom 1 years ago 05/16/2015 None back pain Quality consta nt 05/16/2015 None back pain Onset and Resolution ongoing 05/16/2015 None back pain Onset and Resolution worse in the morning 05/16/2015 None back pain Limitation on Activities does not limit activities 05/16/2015 None back pain Frequency of Episodes increasing 05/16/2015 pain worsening over the p ast year back pain Alleviating Factors rest 05/16/2015 some relief laying flat w ith pillow under knees back pain Exacerbating Factors medication 05/16/2015 None back pain Initial treatment medication 05/16/2015 None back pain Severity moder ate 05/16/2015 None back pain Sports Participation not significant 05/16/2015 None hypertension Quality int ermittent 11/03/2014 None hypertension Onset and Resolution ongoing 11/03/2014 None back pain Location lumba r-sacral spine 11/03/2014 None back pain Quality interm ittent 11/03/2014 None back pain Onset and Resolution ongoing 11/03/2014 None back pain Radiating down the right leg 11/03/2014 right groin back pain Pertinent Findings Denies sleep disturbance 11/03/2014 None hyperlipidemia Onset and Resolution ongoing 11/03/2014 None hypertension Pertinent Findings Denies dizziness 11/03/2014 None hypertension Pertinent Findings Denies dyspnea 11/03/2014 None hypertension Pertinent Findings Denies edema 11/03/2014 None hypertension Severity mi ld 11/03/2014 None Advance Directives No Advance Directive data Encounters Encounter Performer Loca tion Codes Date ([id number]) 97721 EST. P ATIENT, LEVEL IV Diagnosis: Essential (primary) hypertension[ICD10: I10] Diagnosis: Low back pain[ICD10: M54.5] Diagnosis: Pain in right hip[ICD10: M25.551] Diagnosis: Actinic keratosis[ICD10: L57.0] [facility] CPT-4: 54049 10/21/2018 [id number]) 07133 EST. P ATIENT, LEVEL III Diagnosis: Cough[ICD10: R05] Diagnosis: Acute bronchitis, unspecified[ICD10: J20.9] [facility] CPT-4: 82831 09/08/2018 [id number]) 90616 EST. P ATIENT, LEVEL IV Diagnosis: Essential (primary) hypertension[ICD10: I10] Diagnosis: Pain in right hip[ICD10: M25.551] Diagnosis: Low back pain[ICD10: M54.5] Tamara Jones MD, [facility] CPT-4: 19055 06/18/2018 ([id number] 36873 EST. P ATIENT, LEVEL III Diagnosis: Acute bronchitis due to other specified organisms[ICD10: J20.8] Diagnosis: Cough[ICD10: R05] Tamara Jones MD, [facility] CPT-4: 92484 02/18/2018 ([id number]) 85262 EST. P ATIENT, LEVEL IV Diagnosis: Essential (primary) hypertension[ICD10: I10] Diagnosis: Low back pain[ICD10: M54.5] Diagnosis: Spinal stenosis, lumbosacral region[ICD10: M48.07] Diagnosis: Mixed hyperlipidemia[ICD10: E78.2] Tamara Jones MD, [facility] CPT- 4: 41406 01/08/2018 ([id number]) 66293 EST. P ATIENT, LEVEL IV Diagnosis: Essential (primary) hypertension[ICD10: I10] Diagnosis: Low back pain[ICD10: M54.5] Diagnosis: Spinal stenosis, lumbosacral region[ICD10: M48.07] Tamara Jones MD, [facility] CPT-4: 48261 09/09/2017 ([id number]) 42106 EST. P ATIENT, LEVEL IV Diagnosis: Essential (primary) hypertension[ICD10: I10] Diagnosis: Mixed hyperlipidemia[ICD10: E78.2] Diagnosis: Low back pain[ICD10: M54.5] Diagnosis: Pain in right hip[ICD10: M25.551] Diagnosis: Pain in left hip[ICD10: M25.552] Tamara Jones MD, [facility] CPT-4: 26003 03/25/2017 ([id number]) 18309 EST. P ATIENT, LEVEL III Diagnosis: Low back pain[ICD10: M54.5] Diagnosis: Sciatica, left side[ICD10: M54.32] Elina Jones MD, [facility] CPT-4: 84571 12/16/2016 92845 EST. PATIENT, LEVEL III Diagnosis: Sacroiliitis, not elsewhere classified[ICD10: M46.1] Diagnosis: Sciatica, left side[ICD10: M54.32] Diagnosis: Pain in left hip[ICD10: M25.552] Evelyn Jones MD, [facility] CPT-4: 57529 12/05/2016 ([id number]) 17456 EST. P ATIENT, LEVEL IV Diagnosis: Encounter for screening mammogram for malignant neoplasm of breast[ICD10: Z12.31] Diagnosis: Essential (primary) hypertension[ICD10: I10] Diagnosis: Mixed hyperlipidemia[ICD10: E78.2] Diagnosis: Major depressive disorder, recurrent, mild[ICD10: F33.0] Tamara Jones MD, [facility] CPT-4: 48638 09/25/2016 ([id number]) 93906 EST. P ATIENT, LEVEL IV Diagnosis: Essential (primary) hypertension[ICD10: I10] Diagnosis: Mixed hyperlipidemia[ICD10: E78.2] Diagnosis: Major depressive disorder, recurrent, moderate[ICD10: F33.1] Tamara Jones MD, [facility] CPT-4: 59689 05/29/2016 ([id number]) 37938 EST. P ATIENT, LEVEL IV Diagnosis: Essential (primary) hypertension[ICD10: I10] Diagnosis: Mixed hyperlipidemia[ICD10: E78.2] Diagnosis: Pain in right hip[ICD10: M25.551] Diagnosis: Major depressive disorder, recurrent, mild[ICD10: F33.0] Tamara Jones MD, [facility] CPT-4: 80305 04/17/2016 ([id number]) 97512 EST. P ATIENT, LEVEL IV Diagnosis: Essential (primary) hypertension[ICD10: I10] Diagnosis: Low back pain[ICD10: M54.5] Diagnosis: Mixed hyperlipidemia[ICD10: E78.2] Tamara Jones MD, [facility] CPT- 4: 21689 10/12/2015 ([id number]) 43924 EST. P ATIENT, LEVEL III Diagnosis: Essential (primary) hypertension[ICD10: I10] Diagnosis: Mixed hyperlipidemia[ICD10: E78.2] Diagnosis: Vitamin B12 deficiency anemia, unspecified[ICD10: D51.9] Elina Jones MD, [facility] CPT-4: 24812 07/11/2015 ([id number]) 34344 EST. P ATIENT, LEVEL IV Diagnosis: Essential (primary) hypertension[ICD10: I10] Diagnosis: Low back pain[ICD10: M54.5] Diagnosis: Sciatica, right side[ICD10: M54.31] Elina Jones MD, [facility] CPT-4: 94251 05/16/2015 ([id number]) OFFICE VISI T, NEW - LEVEL 4 Diagnosis: ESSENTIAL HYPERTENSION[ICD9: 401.9] Diagnosis: HYPERLIPIDEMIA[ICD9: 272.4] Diagnosis: OSTEOARTH NOS-UNSPEC[ICD9: 715.90] Diagnosis: Sacroiliitis[ICD9: 720.2] Tamara Jones MD, [facility] CPT-4: 51143 11/03/2014 Plan of Care Planned Activity Notes C odes Status Date Visit Plan: Hypertension - well con trolled - continue with current medications, continue with no added salt diet. Pt has been encouraged to exercise daily. The pt has been advised to call the office if there are any acute concerns about change in blood pressure readings at home. Low back pain - hip pain - keep appts with Dr. Berman. Actinic keratosis on arms, legs -rx for efudex and instructions given to patient and her sister. 10/21/2018 Appointment: Tamara Jones WPtel: [facility] (15 min) Moderate 10/21/2018 Patient Education: Patient Medication Summary Completed 10/21/2018 Patient Education: Hypertension Completed 10/21/2018 Patient Education: Back Pain Completed 10/21/2018 Visit Plan: Bronchitis - acute case of bronchitis identified. Pt has been given antibiotics, breathing treatments as appropriate, and pt has been instructed to call if symptoms are not improved, or if symptoms acutely worsen. 09/08/2018 Appointment: Elina Rivera WPtel: [phone] (30 min) Complex 09/08/2018 Patient Education: Patient Medication Summary Completed 09/08/2018 Visit Plan: Hypertension - well con trolled - continue with current medications, continue with no added salt diet. Pt has been encouraged to exercise daily. The pt has been advised to call the office if there are any acute concerns about change in blood pressure readings at home. Chronic Pain Syndrome - pt has chronic pain - has been maintained on current medications, has not sought out other medications, only uses PRN pain medications as directed, and understands the consequences of over-medication. Pt using less of the pain medication post-operatively - continue with low dose medication use, call if symptoms are not improving. Hip pain/Knee pain - discussed with pt - I agree with the hip replacement that has been proposed by Dr. Zurita. 06/18/2018 Appointment: Tamara Jones WPtel: [phone] [facility] (15 min) Moderate 06/18/2018 Patient Education: Patient Medication Summary Completed 06/18/2018 Patient Education: Back Pain Completed 06/18/2018 Appointment: Tamara Jones WPtel: [phone] [facility] [place] (15 min) Moderate 06/15/2018 Appointment: Elina Rivera WPtel: [phone] [phone] [place] (15 min) Moderate 02/27/2018 Appointment: Elina Rivera WPtel: [phone] [phone] [place] (15 min) Moderate 02/23/2018 Visit Plan: Bronchitis - acute case of bronchitis identified. Pt has been given antibiotics, breathing treatments as appropriate, and pt has been instructed to call if symptoms are not improved, or if symptoms acutely worsen. 02/18/2018 Appointment: [facility] Jones [facility]Ptel[phone] [facility] [place] (15 min) Moderate 02/18/2018 Patient Education: Patient Medication Summary Completed 02/18/2018 Appointment: Tamara Jones WPtel: [phone] [facility] [place] (15 min) Moderate 02/16/2018 Visit Plan: Hypertension - well con trolled - continue with current medications, continue with no added salt diet. Pt has been encouraged to exercise daily. The pt has been advised to call the office if there are any acute concerns about change in blood pressure readings at home. Chronic Pain Syndrome - pt has chronic pain - has been maintained on current medications, has not sought out other medications, only uses PRN pain medications as directed, and understands the consequences of over-medication. Pt using less of the pain medication post-operatively - continue with low dose medication use, call if symptoms are not improving. 01/08/2018 Appointment: Tamara Jones WPtel: [facility] (15 min) Moderate 01/08/2018 Patient Education: Patient Medication Summary Completed 01/08/2018 Visit Plan: Spinal stenosis - pt quinn d MRI in 2016 - was seen by Dr. Aguilera, had physical therapy without improvement. I have recommended a repeat referral to Dr. Aguilera for spine eval - hx of spinal stenosis. Hypert ension - well controlled - continue with current medications, continue with no added salt diet. Pt has been encouraged to exercise daily. The pt has been advised to call the office if there are any acute concerns about change in blood pressure readings at home. fasting labs to mag lab 09/09/2017 Appointment: Tamara Jones WPtel: [phone] [facility] (15 min) Moderate 09/09/2017 Patient Education: Patient Medication Summary Completed 09/09/2017 Care Plan: Referral Order SNOMED-CT : [id number] Pending 09/09/2017 Appointment: Elina Rivera WPtel: [phone] [facility] - Annual Wellness Visit 04/25/2017 Visit Plan: Hypertension - well con trolled - continue with current medications, continue with no added salt diet. Pt has been encouraged to exercise daily. The pt has been advised to call the office if there are any acute concerns about change in blood pressure readings at home. Hyperlipidemia - pt has been counseled about appropriate diet, exercise, and need for low fat food choices. I have discussed the need for the patient to take medications as prescribed. If the patient has negative side effects from the medication, they are to CALL the office and not abruptly discontinue the medication without discussion with a practitioner in the office. We will check labs in 3-6 months for follow up on the patient's chronic medical problem and to assure normal liver response to medications. Low back pain and hip pain - continue with current treatment/anti-inflammatory prn. 03/25/2017 Appointment: Tamara Jones WPtel: [phone] [facility] (15 min) Moderate 03/25/2017 Patient Education: Patient Medication Summary Completed 03/25/2017 Patient Education: Obesity Completed 03/25/2017 Visit Plan: Low back pain-plan to i ncrease gabapentin-use hydrocodone for break through pain-discussed PT-patient to make appt with Dr Aguilera to discuss further treatment options 12/16/2016 Appointment: Elina Rivera WPtel: [phone] (15 min) Moderate 12/16/2016 Patient Education: Patient Medication Summary Completed 12/16/2016 Visit Plan: Joint Injection - left SI joint - Pt was given post - injection instructions. The pt has been advised to use anti- inflammatories post injection today, ice to the injected site, call if redness, warmth, or increased pain occurs at the site of injection. Pt is to notify clinic if symptoms do not improve, if they worsen, or with any questions or concerns. Sacroiliitis - pt to continue with anti-inflammatories. Pt is to call if the symptoms do not improve or if they worsen. Sciatica- pt to continue with antiinflammatories. Pt is to call if the symptoms do not improve or if they worsen. 12/05/2016 Appointment: Evelyn Orosco WPtel: [phone] [phone] [place] (30 min) Complex 12/05/2016 Patient Education: Patient Medication Summary Completed 12/05/2016 Visit Plan: Wound Instructions - Pt was instructed to keep the wound clean, wash with antibacterial soap, use triple antibiotic ointment, call if redness, pustular drainage, or any other acute concerns. 10/22/2016 Appointment: Elina Rivera WPtel: [phone] [phone] (15 min) Moderate 10/22/2016 Patient Education: Patient Medication Summary Completed 10/22/2016 Patient Education: Obesity Completed 10/22/2016 Visit Plan: Hypertension - well con trolled - continue with current medications, continue with no added salt diet. Pt has been encouraged to exercise daily. The pt has been advised to call the office if there are any acute concerns about change in blood pressure readings at home. Hyperlipidemia - pt has been counseled about appropriate diet, exercise, and need for low fat food choices. I have discussed the need for the patient to take medications as prescribed. If the patient has negative side effects from the medication, they are to CALL the office and not abruptly discontinue the medication without discussion with a practitioner in the office. We will check labs in 3-6 months for follow up on the patient's chronic medical problem and to assure normal liver response to medications. Memory loss -improved continue with SSRI 09/25/2016 Appointment: Tamara Jones WPtel: [phone] [facility] (15 min) Moderate 09/25/2016 Patient Education: Patient Medication Summary Completed 09/25/2016 Patient Education: Obesity Completed 09/25/2016 Care Plan: SCREENINGMAMMOGRAPHYDIGITAL LOINC : [id number] Pending 09/25/2016 Visit Plan: Hypertension - well con trolled - continue with current medications, continue with no added salt diet. Pt has been encouraged to exercise daily. The pt has been advised to call the office if there are any acute concerns about change in blood pressure readings at home. Hyperlipidemia - pt has been counseled about appropriate diet, exercise, and need for low fat food choices. I have discussed the need for the patient to take medications as prescribed. If the patient has negative side effects from the medication, they are to CALL the office and not abruptly discontinue the medication without discussion with a practitioner in the office. We will check labs in 3-6 months for follow up on the patient's chronic medical problem and to assure normal liver response to medications. Memory loss - due to depression - continue with antidepressnat as prescribed. 05/29/2016 Appointment: Tamara Jones WPtel: [phone] [facility] [place] (15 min) Moderate 05/29/2016 Patient Education: Patient Medication Summary Completed 05/29/2016 Patient Education: Obesity Completed 05/29/2016 Visit Plan: Medicare Exam - today w e discussed the patients past history, immunizations, preventative exams/evaluations - colonoscopy, fecal occult blood testing, routine labs for renal function, glucose, cholesterol, osteoporosis evaluations, cardiovascular testing and cancer screenings. We have also discussed mental health and the signs/symptoms of depression. The patient was advised of home safety evaluations and the need to make sure that as the aging process continues, we need to be aware of different ways to make the home a safer place to reside. The patient has also been counseled that exercise is necessary - and of utmost importance as we age to help decrease fall risk and to maintain independece in the home. Today we discussed the need for the patient to create paperwork for Advanced directives as well as for the patient to provide this office with a copy of her DOPA paperwork for health care surrogate. 04/19/2016 Appointment: [facility] Rivera [facility]Ptel[phone] [phone] [place] [address] - Annual Wellness Visit 04/19/2016 Patient Education: Patient Medication Summary Completed 04/19/2016 Patient Education: Obesity Completed 04/19/2016 Visit Plan: Hypertension - well clary coe - continue with current medications, continue with no added salt diet. Pt has been encouraged to exercise daily. The pt has been advised to call the office if there are any acute concerns about change in blood pressure readings at home. Hyperlipidemia - pt has been counseled about appropriate diet, exercise, and need for low fat food choices. I have discussed the need for the patient to take medications as prescribed. If the patient has negative side effects from the medication, they are to CALL the office and not abruptly discontinue the medication without discussion with a practitioner in the office. We will check labs in 3-6 months for follow up on the patient's chronic medical problem and to assure normal liver response to medications. Memory loss - likely due to depression - rx for SSRI 04/17/2016 Appointment: Tamara Jones WPtel: [phone] [facility] (15 min) Moderate 04/17/2016 Patient Education: Patient Medication Summary Completed 04/17/2016 Patient Education: Obesity Completed 04/17/2016 Visit Plan: Hypertension - well con trolled - continue with current medications, continue with no added salt diet. Pt has been encouraged to exercise daily. The pt has been advised to call the office if there are any acute concerns about change in blood pressure readings at home. Low back pain - refilled hydrocodone. Hyperlipidemia - pt has been counseled about appropriate diet, exercise, and need for low fat food choices. I have discussed the need for the patient to take medications as prescribed. If the patient has negative side effects from the medication, they are to CALL the office and not abruptly discon tinue the medication without discussion with a practitioner in the office. We will check labs in 3-6 months for follow up on the patient's chronic medical problem and to assure normal liver response to medications. 10/12/2015 Appointment: Tamara Jones WPtel: [phone] (30 min) [facility] 10/12/2015 Patient Education: Patient Medication Summary Completed 10/12/2015 Patient Education: Obesity Completed 10/12/2015 Patient Education: Hypertension Completed 10/12/2015 Visit Plan: Hypertension - well con trolled - continue with current medications, continue with no added salt diet. Pt has been encouraged to exercise daily. The pt has been advised to call the office if there are any acute concerns about change in blood pressure readings at home. Hyperlipidemia - pt has been counseled about appropriate diet, exercise, and need for low fat food choices. I have discussed the need for the patient to take medications as prescribed. If the patient has negative side effects from the medication, they are to CALL the office and not abruptly discontinue the medication without discussion with a practitioner in the office. We will check labs in 3-6 months for follow up on the patient's chronic medical problem and to assure normal liver response to medications. 07/11/2015 Appointment: (15 min) Moderate 07/11/2015 Patient Education: Patient Medication Summary Completed 07/11/2015 Patient Education: Hypertension Completed 07/11/2015 Visit Plan: Hypertension - well con trolled - continue with current medications, continue with no added salt diet. Pt has been encouraged to exercise daily. The pt has been advised to call the office if there are any acute concerns about change in blood pressure readings at home. Low back pain with ride side sciatica-recommend xray low back-MRI if indicated for further evaluation-discussed possible PT referral as well Memory loss-recommend MRI brain-patient will call insurance to see what her cost would be and consider having scan done. Recommend follow up memory testing in the office-last test was about a year ago with Dr Dhillon 05/16/2015 Appointment: (15 min) Moderate 05/16/2015 Patient Education: Patient Medication Summary Completed 05/16/2015 Patient Education: Hypertension Completed 05/16/2015 Appointment: (30 min) Complex 05/01/2015 Visit Plan: Hypertension - well con trolled - continue with current medications, continue with no added salt diet. Pt has been encouraged to exercise daily. The pt has been advised to call the office if there are any acute concerns about change in blood pressure readings at home. Hyperlipidemia - pt has been counseled about appropriate diet, exercise, and need for low fat food choices. I have discussed the need for the patient to take medications as prescribed. If the patient has negative side effects from the medication, they are to CALL the office and not abruptly discontinue the medication without discussion with a practitioner in the office. We will check labs in 3-6 months for follow up on the patient's chronic medical problem and to assure normal liver response to medications. Sacroiliitis - back exercises discussed with the patient, pt to continue with anti-inflammatories. Pt is to call if the symptoms do not improve or if they worsen. 11/03/2014 Appointment: Tamara Jones WPtel: [address] [place], [place] [id number] [place] (S) New Patient 11/03/2014 Patient Education: Patient Medication Summary Completed 11/03/2014 Patient Education: Hypertension Completed 11/03/2014 Referral: External, Ordering Provider Referral Appointment Requested Instructions Comment . Hypertension - wel l controlled - continue with current medications, continue with no added salt diet. Pt has been encouraged to exercise daily. The pt has been advised to call the office if there are any acute concerns about change in blood pressure readings at home. Low back pain - refilled hydrocodone. Hyperlipidemia - pt has been counseled about appropriate diet, exercise, and need for low fat food choices. I have discussed the need for the patient to take medications as prescribed. If the patient has negative side effects from the medication, they are to CALL the office and not abruptly discontinue the medication without discussion with a practitioner in the office. We will check labs in 3-6 months for follow up on the patient's chronic medical problem and to assure normal liver response to medications. . Hypertension - wel l controlled - continue with current medications, continue with no added salt diet. Pt has been encouraged to exercise daily. The pt has been advised to call the office if there are any acute concerns about change in blood pressure readings at home. Hyperlipidemia - pt has been counseled about appropriate diet, exercise, and need for low fat food choices. I have discussed the need for the patient to take medications as prescribed. If the patient has negative side effects from the medication, they are to CALL the office and not abruptly discontinue the medication without discussion with a practitioner in the office. We will check labs in 3-6 months for follow up on the patient's chronic medical problem and to assure normal liver response to medications. Memory loss - likely due to depression - rx for SSRI . Medicare Exam - to day we discussed the patients past history, immunizations, preventative exams/evaluations - colonoscopy, fecal occult blood testing, routine labs for renal function, glucose, cholesterol, osteoporosis evaluations, cardiovascular testing and cancer screenings. We have also discussed mental health and the signs/symptoms of depression. The patient was advised of home safety evaluations and the need to make sure that as the aging process continues, we need to be aware of different ways to make the home a safer place to reside. The patient has also been counseled that exercise is necessary - and of utmost importance as we age to help decrease fall risk and to maintain independece in the home. Today we discussed the need for the patient to create paperwork for Advanced directives as well as for the patient to provide this office with a copy of her [employer] paperwork for health care surrogate. . Hypertension - wel l controlled - continue with current medications, continue with no added salt diet. Pt has been encouraged to exercise daily. The pt has been advised to call the office if there are any acute concerns about change in blood pressure readings at home. Low back pain - hip pain - keep appts with Dr. Berman. Actinic keratosis on arms, legs -rx for efudex and instructions given to patient and her sister. . Hypertension - wel l controlled - continue with current medications, continue with no added salt diet. Pt has been encouraged to exercise daily. The pt has been advised to call the office if there are any acute concerns about change in blood pressure readings at home. Hyperlipidemia - pt has been counseled about appropriate diet, exercise, and need for low fat food choices. I have discussed the need for the patient to take medications as prescribed. If the patient has negative side effects from the medication, they are to CALL the office and not abruptly discontinue the medication without discussion with a practitioner in the office. We will check labs in 3-6 months for follow up on the patient's chronic medical problem and to assure normal liver response to medications. Sacroiliitis - back exercises discussed with the patient, pt to continue with anti-inflammatories. Pt is to call if the symptoms do not improve or if they worsen. . Spinal stenosis - pt had MRI in 2016 - was seen by Dr. Aguilera, had physical therapy without improvement. I have recommended a repeat referral to Dr. Aguilera for spine eval - hx of spinal stenosis. Hypertension - well controlled - continue with current medications, continue with no added salt diet. Pt has been encouraged to exercise daily. The pt has been advised to call the office if there are any acute concerns about change in blood pressure readings at home. fasting labs to [facility] . Wound Instructions - Pt was instructed to keep the wound clean, wash with antibacterial soap, use triple antibiotic ointment, call if redness, pustular drainage, or any other acute concerns. . Hypertension - wel l controlled - continue with current medications, continue with no added salt diet. Pt has been encouraged to exercise daily. The pt has been advised to call the office if there are any acute concerns about change in blood pressure readings at home. Chronic Pain Syndrome - pt has chronic pain - has been maintained on current medications, has not sought out other medications, only uses PRN pain medications as directed, and understands the consequences of over-medication. Pt using less of the pain medication post-operatively - continue with low dose medication use, call if symptoms are not improving. Hip pain/Knee pain - discussed with pt - I agree with the hip replacement that has been proposed by Dr. Zurita. . Hypertension - wel l controlled - continue with current medications, continue with no added salt diet. Pt has been encouraged to exercise daily. The pt has been advised to call the office if there are any acute concerns about change in blood pressure readings at home. Chronic Pain Syndrome - pt has chronic pain - has been maintained on current medications, has not sought out other medications, only uses PRN pain medications as directed, and understands the consequences of over-medication. Pt using less of the pain medication post-operatively - continue with low dose medication use, call if symptoms are not improving. ROCEPHIN AND KENALOG TODAY START ZPACK TODAY START CEFDINIR AND PREDNISONE TOMORROW CONTINUE ALBUTEROL INHALER TAKE A PROBITOIC WHILE ON THE ANTIBIOTIC TO HELP PREVENT DIARRHEA CALL FRIDAY IF NOT IMPROVING AND WE WILL GET A CHEST XRAY . Bronchitis - acute case of bronchitis identified. Pt has been given antibiotics, breathing treatments as appropriate, and pt has been instructed to call if symptoms are not improved, or if symptoms acutely worsen. . Hypertension - wel l controlled - continue with current medications, continue with no added salt diet. Pt has been encouraged to exercise daily. The pt has been advised to call the office if there are any acute concerns about change in blood pressure readings at home. Hyperlipidemia - pt has been counseled about appropriate diet, exercise, and need for low fat food choices. I have discussed the need for the patient to take medications as prescribed. If the patient has negative side effects from the medication, they are to CALL the office and not abruptly discontinue the medication without discussion with a practitioner in the office. We will check labs in 3-6 months for follow up on the patient's chronic medical problem and to assure normal liver response to medications. Memory loss -improved continue with SSRI . Hypertension - wel l controlled - continue with current medications, continue with no added salt diet. Pt has been encouraged to exercise daily. The pt has been advised to call the office if there are any acute concerns about change in blood pressure readings at home. Hyperlipidemia - pt has been counseled about appropriate diet, exercise, and need for low fat food choices. I have discussed the need for the patient to take medications as prescribed. If the patient has negative side effects from the medication, they are to CALL the office and not abruptly discontinue the medication without discussion with a practitioner in the office. We will check labs in 3-6 months for follow up on the patient's chronic medical problem and to assure normal liver response to medications. . Hypertension - wel l controlled - continue with current medications, continue with no added salt diet. Pt has been encouraged to exercise daily. The pt has been advised to call the office if there are any acute concerns about change in blood pressure readings at home. Hyperlipidemia - pt has been counseled about appropriate diet, exercise, and need for low fat food choices. I have discussed the need for the patient to take medications as prescribed. If the patient has negative side effects from the medication, they are to CALL the office and not abruptly discontinue the medication without discussion with a practitioner in the office. We will check labs in 3-6 months for follow up on the patient's chronic medical problem and to assure normal liver response to medications. Memory loss - due to depression - continue with antidepressnat as prescribed. . Joint Injection - left SI joint - Pt was given post - injection instructions. The pt has been advised to use anti-inflammatories post injection today, ice to the injected site, call if redness, warmth, or increased pain occurs at the site of injection. Pt is to notify clinic if symptoms do not improve, if they worsen, or with any questions or concerns. Sacroiliitis - pt to continue with anti-inflammatories. Pt is to call if the symptoms do not improve or if they worsen. Sciatica- pt to continue with antiinflammatories. Pt is to call if the symptoms do not improve or if they worsen. XRAY LUMBAR SPINE TH EN MRI MRI BRAIN . Hypertension - well controlled - raegan nue with current medications, continue with no added salt diet. Pt has been encouraged to exercise daily. The pt has been advised to call the office if there are any acute concerns about change in blood pressure readings at home. Low back pain with ride side sciatica-recommend xray low back-MRI if indicated for further evaluation-discussed possible PT referral as well Memory loss-recommend MRI brain-patient will call insurance to see what her cost would be and consider having scan done. Recommend follow up memory testing in the office-last test was about a year ago with Dr Dhillon ADD GABAPENTIN 100MG IN THE MORNING OKAY TO TAKE AN EXTRA HYDROCODONE AT NOON IF NEEDED CONSIDER PT F/U WITH DR AGUILERA . Low back pain-plan to increase gabapen tin-use hydrocodone for break through pain-discussed PT-patient to make appt with Dr Aguilera to discuss further treatment options . Hypertension - wel l controlled - continue with current medications, continue with no added salt diet. Pt has been encouraged to exercise daily. The pt has been advised to call the office if there are any acute concerns about change in blood pressure readings at home. Hyperlipidemia - pt has been counseled about appropriate diet, exercise, and need for low fat food choices. I have discussed the need for the patient to take medications as prescribed. If the patient has negative side effects from the medication, they are to CALL the office and not abruptly discontinue the medication without discussion with a practitioner in the office. We will check labs in 3-6 months for follow up on the patient's chronic medical problem and to assure normal liver response to medications. Low back pain and hip pain - continue with current treatment/anti-inflammatory prn. . Bronchitis - acute case of bronchitis identified. Pt has been given antibiotics, breathing treatments as appropriate, and pt has been instructed to call if symptoms are not improved, or if symptoms acutely worsen.
[2019-09-24] MEDS ORDERED: MIDAZOLAM 5 MG/5 ML (VERSED) VIAL ONE (08:36)
[2019-09-24] MEDS ORDERED: fentaNYL INJECTION 100 MCG/2 ML AMP ONE ×2 (08:37→09:15)
[2019-09-24] MEDS ORDERED: LIDOCAINE JELLY 2% 6 ML SYRINGE ONE (08:37)
--- OUTSIDE RECORDS SUMMARY | 2019-09-24 08:37 | XMS REPORT | CCD ---
Author Author Marjorie Jones Organization Tamara Jones MD, [facility] Address [address] [place] [address] Phone Care Team Providers Care Sales Lead Generator Name Role Phone PP Unavailable CCM Unavailable Summary Purpose Interface Exchange Insurance Providers Payer name Policy type / Coverage type Covered green party ID Effective Begin Date Effective End Date [place] [employer] Medicare Part B [id number] Unknown [facility] icare Part B [id number] Un known Family history Mother Diagnosis Age At Onset Diabetes mellitus Type 2 Unknown Father Diagnosis Age At Onset Depression Unknown Hyperlipidemia Unknown Hypertension Unknown Stroke Unknown Coronary Artery Disease Unknown Social History Social History Element Codes Description Effective Dates Marital status Unknown M arried Walter 11/03/2014 Number of children Unknown 0 11/03/2014 Employment Unknown Curre ntly unemployed 11/03/[address]: 9576954 Quit over 10 years ago 199911/03/2014 Alcohol [...] Instructions gabapentin 100 mg ca psule RxNorm: 949735 TAKE 1 CAPSULE BY [facility] TH ONCE DAILY IN THE MORNING 10/30/2018 No Stop Date Active diclofenac sodium 75 mg tablet,delayed release RxNorm: 474048 TAKE 1 TABLET BY MOUT H TWICE DAILY 10/28/2018 No Stop Date Active Efudex 5 % topical c ream RxNorm: 309125 1 Application TOP BID apply from upper arm to wrist [id number], then change to other arm, then 10 days later do right leg then left leg 10/21/2018 11/19/2018 Active Ventolin HFA 90 mcg/ actuation aerosol inhaler RxNorm: 464575 2 Puff(s) INH Q4 PRN 09/08/2018 11/06/2018 Ac tive prednisone 20 mg tablet RxNorm: 883859 2 Tablet(s) PO daily 09/08/2018 09/12/2018 Inactive START TOMORROW 09/09 cefdinir 300 mg capsule RxNorm: 355455 1 Capsule(s) PO BID 09/08/2018 09/14/2018 Inactive START TOMORROW Zithromax Z-Feng 250 mg tablet RxNorm: 764461 1 Tablet(s) PO UD 09/08/2018 09/12/2018 Inactive START TODAY ceftriaxone 500 mg s olution for injection RxNorm: 2633302 Inj 09/08/2018 09/08/2018 Inactive Kenalog 40 mg/mL christoph pension for injection RxNorm: 7188282 Milliliter(s) Inj 09/08/2018 09/08/2018 In active gabapentin 100 mg ca psule RxNorm: 494914 TAKE 1 CAPSULE BY [facility] TH ONCE DAILY IN THE MORNING 08/10/2018 10/29/2018 Inactive lisinopril 10 mg-hyd rochlorothiazide 12.5 mg tablet RxNorm: 829962 TAKE 1 TABLET BY MOUTH ONCE DAILY 07/01/2018 No Stop Date Active hydrocodone 7.5 mg-a cetaminophen 325 mg tablet RxNorm: 073677 1 Tablet(s) PO TID 06/29/2018 07/28/2018 In active memantine 10 mg tablet RxNorm: 206325 1 Tablet(s) PO BID 06/18/2018 01/13/2019 Active Aricept 10 mg tablet RxNorm: 503565 1/2 tab daily x 2 weeks then increase to 1 Tablet(s) PO daily thereafter 06/18/2018 08/11/2019 Active escitalopram 10 mg t ablet RxNorm: 159996 TAKE ONE TABLET BY MO UTH ONCE DAILY IN THE EVENING 06/18/2018 No Stop Date Active gabapentin 100 mg ca psule RxNorm: 945355 TAKE 1 CAPSULE BY SCOTT TH ONCE DAILY IN THE MORNING 06/11/2018 08/09/2018 Inactive Lipitor 20 mg tablet RxNorm: 100863 TAKE ONE TABLET BY MOUTH THREE TIMES [facility] 05/06/2018 No Stop Date Active hydrocodone 7.5 mg-a cetaminophen 325 mg tablet RxNorm: 872849 1 Tablet(s) PO TID 04/30/2018 05/29/2018 In active hydrocodone 7.5 mg-a cetaminophen 325 mg tablet RxNorm: 145522 1 Tablet(s) PO TID 03/26/2018 04/24/2018 In active Ventolin HFA 90 mcg/ actuation aerosol inhaler RxNorm: 936967 2 INH TID x 1 week th en twice daily x 5 days then as needed. 02/18/2018 04/18/2018 Inactive plea se give pt a spacer cefdinir 300 mg capsule RxNorm: 266265 1 Capsule(s) PO BID 02/18/2018 02/24/2018 Inactive prednisone 20 mg tablet RxNorm: 789379 2 Tablet(s) PO daily 02/18/2018 02/22/2018 Inactive memantine 10 mg tablet RxNorm: 806534 1/2 tab nightly x1wk then 1/2tab bid x1w k then 1/2tab am and 1tab hs x1wk then 1 Tablet(s) PO BID 01/08/2018 06/17/2018 Inactive hydrocodone 7.5 mg-a cetaminophen 325 mg tablet RxNorm: 792374 1 Tablet(s) PO TID 01/08/2018 02/06/2018 In active gabapentin 100 mg ca psule RxNorm: 527486 TAKE 1 CAPSULE BY [facility] ONCE DAILY IN THE MORNING 12/24/2017 06/10/2018 Inactive hydrocodone 7.5 mg-a cetaminophen 325 mg tablet RxNorm: 223418 1-2 Tablet(s) PO Q6 a s needed 12/01/2017 12/22/2017 Inactive diclofenac sodium 75 mg tablet,delayed release RxNorm: 045425 TAKE ONE TABLET BY [facility] TWICE DAILY 11/10/2017 10/27/2018 Inactive hydrocodone 7.5 mg-a cetaminophen 325 mg tablet RxNorm: 004230 1-2 Tablet(s) PO Q6 a s needed 10/17/2017 11/07/2017 Inactive hydrocodone 7.5 mg-a cetaminophen 325 mg tablet RxNorm: 848397 1-2 Tablet(s) PO Q6 a s needed 09/01/2017 09/22/2017 Inactive hydrocodone 7.5 mg-a cetaminophen 325 mg tablet RxNorm: 307946 1-2 Tablet(s) PO Q6 a s needed 08/25/2017 08/31/2017 Inactive hydrocodone 7.5 mg-a cetaminophen 325 mg tablet RxNorm: 818930 1-2 Tablet(s) PO Q6 a s needed 07/14/2017 08/04/2017 Inactive lisinopril 10 mg-hyd rochlorothiazide 12.5 mg tablet RxNorm: 399044 Tablet(s) TAKE ONE TABLET BY MOUTH ONCE DAILY 07/14/2017 06/30/2018 Inactive gabapentin 100 mg ca psule RxNorm: 582093 1 Capsule(s) PO QAM 06/23/2017 12/19/2017 Inactive hydrocodone 7.5 mg-a cetaminophen 325 mg tablet RxNorm: 281664 1-2 Tablet(s) PO Q6 a s needed 05/20/2017 06/10/2017 Inactive Lipitor 20 mg tablet RxNorm: 172854 1 Tablet(s) PO TIW 05/13/2017 05/05/2018 Inactive escitalopram 10 mg t ablet RxNorm: 790450 1 Tablet(s) PO QPM 05/13/2017 05/07/2018 Inactive escitalopram 10 mg t ablet RxNorm: 892509 1 Tablet(s) PO QPM 04/16/2017 05/12/2017 Inactive lisinopril 10 mg-hyd rochlorothiazide 12.5 mg tablet RxNorm: 628202 TAKE ONE TABLET BY MOUTH ONCE DAILY 04/15/2017 07/13/2017 Inactive escitalopram 10 mg t ablet RxNorm: 362719 1 Tablet(s) PO QPM 04/09/2017 04/15/2017 Inactive hydrocodone 7.5 mg-a cetaminophen 325 mg tablet RxNorm: 496952 1-2 Tablet(s) PO Q6 a s needed 03/17/2017 04/07/2017 Inactive hydrocodone 7.5 mg-a cetaminophen 325 mg tablet RxNorm: 286243 1-2 Tablet(s) PO Q6 a s needed 12/27/2016 01/17/2017 Inactive gabapentin 100 mg ca psule RxNorm: 031451 1 Capsule(s) PO QAM 12/16/2016 06/13/2017 Inactive prednisone 20 mg tablet RxNorm: 188551 2 Tablet(s) PO daily 12/06/2016 12/05/2016 Inactive prednisone 20 mg tablet RxNorm: 739990 2 Tablet(s) PO daily 12/06/2016 12/15/2016 Inactive Kenalog 40 mg/mL christoph pension for injection RxNorm: 2281863 1 Milliliter(s) Inj 12/05/2016 12/05/2016 In active diclofenac sodium 75 mg tablet,delayed release RxNorm: 142435 1 Tablet(s) PO BID 10/30/2016 10/24/2017 In active hydrocodone 7.5 mg-a cetaminophen 325 mg tablet RxNorm: 639433 1-2 Tablet(s) PO Q6 a s needed 10/23/2016 11/13/2016 Inactive hydrocodone 7.5 mg-a cetaminophen 325 mg tablet RxNorm: 358986 1-2 Tablet(s) PO Q6 a s needed 08/16/2016 09/06/2016 Inactive lisinopril 10 mg-hyd rochlorothiazide 12.5 mg tablet RxNorm: 073511 TAKE ONE TABLET BY MOUTH ONCE DAILY 06/07/2016 04/14/2017 Inactive Lipitor 40 mg tablet RxNorm: 411164 1 Tablet(s) PO TIW 05/31/2016 05/01/2017 Inactive Lipitor 20 mg tablet RxNorm: 252026 1 Tablet(s) PO TIW 05/29/2016 05/30/2016 Inactive hydrocodone 7.5 mg-a cetaminophen 325 mg tablet RxNorm: 509841 1-2 Tablet(s) PO Q6 a s needed 05/23/2016 06/13/2016 Inactive escitalopram 10 mg t ablet RxNorm: 576130 1 Tablet(s) PO QPM st art at 1/2 pill nightly x 1wk then a full pill thereafter 04/17/2016 04/08/2017 Inactive hydrocodone 7.5 mg-a cetaminophen 325 mg tablet RxNorm: 676512 1-2 Tablet(s) PO Q6 a s needed 02/28/2016 03/20/2016 Inactive hydrocodone 7.5 mg-a cetaminophen 325 mg tablet RxNorm: 626481 1-2 Tablet(s) PO Q6 a s needed 12/04/2015 12/25/2015 Inactive diclofenac sodium 75 mg tablet,delayed release RxNorm: 851042 1 Tablet(s) PO BID 10/23/2015 10/16/2016 In active hydrocodone 7.5 mg-a cetaminophen 325 mg tablet RxNorm: 042994 1-2 Tablet(s) PO Q6 a s needed 09/12/2015 12/03/2015 Inactive promethazine 25 mg t ablet RxNorm: 337758 1 Tablet(s) PO Q6 as needed 08/30/2015 No Stop Date Active lisinopril 10 mg-hyd rochlorothiazide 12.5 mg tablet RxNorm: 312409 1 Tablet(s) PO daily 05/09/2015 05/02/2016 Inactive hydrocodone 7.5 mg-a cetaminophen 325 mg tablet RxNorm: 098347 1-2 Tablet(s) PO Q6 a s needed 04/17/2015 09/11/2015 Inactive lisinopril 10 mg-hyd rochlorothiazide 12.5 mg tablet RxNorm: 629703 1 Tablet(s) PO daily 01/31/2015 05/08/2015 Inactive hydrocodone 7.5 mg-a cetaminophen 325 mg tablet RxNorm: 447284 1-2 Tablet(s) PO Q6 a s needed 01/18/2015 04/16/2015 Inactive diclofenac sodium 75 mg tablet,delayed release RxNorm: 659966 1 Tablet(s) PO BID 01/18/2015 10/14/2015 In active Voltaren 1 % topical gel RxNorm: 023308 4 Gram(s) TOP QID chelsie ly to sacroiliac joint 11/03/2014 05/15/2015 In active lisinopril 10 mg-hyd rochlorothiazide 12.5 mg tablet RxNorm: 212021 1 Tablet(s) PO daily 11/03/2014 12/02/2014 Inactive B-12 Plus sublingual RxNorm: 58404 sublingual No Start Date Active amoxicillin 500 mg c apsule RxNorm: 963396 4 Capsule(s) PO as do ctor directed 1 hours before appt No Start Date Active gabapentin 300 mg ca psule RxNorm: 467823 1 Capsule(s) PO QHS No Start Date Active promethazine 25 mg t ablet RxNorm: 056265 1 Tablet(s) PO Q6 as needed No Start Date 08/29/2015 Inactive diclofenac sodium 75 mg tablet,delayed release RxNorm: 365187 1 Tablet(s) PO BID No Start Date 01/17/2015 Inactive hydrocodone 7.5 mg-a cetaminophen 325 mg tablet RxNorm: 273257 1-2 Tablet(s) PO Q6 a s needed No Start Date 01/17/2015 Inactive Crestor 5 mg tablet RxNorm: 708974 1 Tablet(s) PO 3 x week No Start Date 05/28/2016 Inactive Medication Administered Medication Codes Instruc tions Start Date Status ceftriaxone 500 mg solution for injection RxNorm: 4661126 09/08/2018 No longer A ctive Kenalog 40 mg/mL suspension for injection RxNorm: 5221175 Milliliter 09/08/2018 No longer Active Kenalog 40 mg/mL suspension for injection RxNorm: 9611862 1Milliliter 12/05/2016 N o longer Active Immunizations [...] Item Item Code Result Date Comp Metabolic Zhx671 NA 140 mEq/L 01/14/2018 Comp Metabolic Hod701 K 3.8 mEq/L 01/14/2018 Comp Metabolic Wni241 CL 101 mEq/L 01/14/2018 Comp Metabolic Twn074 CO2 30.0 mEq/L 01/14/2018 Comp Metabolic Vcz181 AN ION GAP 13 01/14/2018 Comp Metabolic Ljb546 GL UCOSE 89 mg/dL 01/14/2018 Comp Metabolic Eqf398 Cr eat 1.0 mg/dL 01/14/2018 Comp Metabolic Urs082 eG FR 63 ml/min/1.73m2 01/14 Comp Metabolic Tcs817 BUN 16 mg/dL 01/14/2018 Comp Metabolic Nxy028 B/ C Ratio 16.8 Ratio 01/14/2018 Comp Metabolic Ban710 CA LCIUM 9.2 mg/dL 01/14/2018 Comp Metabolic Msg300 AL K PHOS 88 U/L 01/14/2018 Comp Metabolic Fax347 T(SGOT) 13 U/L 01/14/2018 Comp Metabolic Svp258 AL T(SGPT) 9 U/L 01/14/2018 Comp Metabolic Xch789 BI LI T 0.5 mg/dL 01/14/2018 Comp Metabolic Vgu400 AL BUMIN 4.0 g/dL 01/14/2018 Comp Metabolic Keq384 TP RO 6.5 g/dL 01/14/2018 Comp Metabolic Zqk021 GL OB 2.5 g/dL 01/14/2018 Comp Metabolic Tnr559 A/ G Ratio 1.6 Ratio 01/14/2018 Comp Metabolic Shg217 Os mo 280 mOsmo 01/14/2018 Tsh Ord6 [...] 31.5 pg 01/14/2018 Cbc With Differential Ord2 [place]% 8.5 % 01/14/2018 Cbc With Differential Ord2 MCHC 33.7 pg 01/14/2018 Cbc With Differential Ord2 Eos% 3.1 % 01/14/2018 Cbc With Differential Ord2 PLT 280 K/ul 01/14/2018 Cbc With Differential Ord2 Baso% 0.4 % 01/14/2018 Cbc With Differential Ord2 RDW 13.1 % 01/14/2018 Cbc With Differential Ord2 Neut ABS# 6.10 K/ul 01/14/2018 Cbc With Differential Ord2 Lymph ABS# 3.44 K/ul 01/14/2018 Cbc With Differential Ord2 [place] ABS# 0.9 K/ul 01/14/2018 Cbc With Differential [...] 31.0 pg 09/10/2017 Cbc With Differential Ord2 [place]% 9.2 % 09/10/2017 Cbc With Differential Ord2 MCHC 33.1 pg 09/10/2017 Cbc With Differential Ord2 Eos% 2.4 % 09/10/2017 Cbc With Differential Ord2 PLT 310 K/ul 09/10/2017 Cbc With Differential Ord2 Baso% 0.4 % 09/10/2017 Cbc With Differential Ord2 RDW 13.5 % 09/10/2017 Cbc With Differential Ord2 Neut ABS# 2.94 K/ul 09/10/2017 Cbc With Differential Ord2 Lymph ABS# 1.82 K/ul 09/10/2017 Cbc With Differential Ord2 [place] ABS# 0.5 K/ul 09/10/2017 Cbc With Differential Ord2 Eos ABS# 0.1 K/ul 09/10/2017 Cbc With Differential Ord2 Baso ABS# 0.0 K/ul 09/10/2017 Tsh Ord6 TSH (3rd IS) 1.22 uIU/mL 09/10/2017 Comp Metabolic Mfk856 NA 140 mEq/L 09/10/2017 Comp Metabolic Znw537 K 4.2 mEq/L 09/10/2017 Comp Metabolic Adv713 CL 107 mEq/L 09/10/2017 Comp Metabolic Kzy364 CO2 25.0 mEq/L 09/10/2017 Comp Metabolic Rsj707 AN ION GAP 12 09/10/2017 Comp Metabolic Upo392 GL UCOSE 84 mg/dL 09/10/2017 Comp Metabolic Tee139 Cr eat 0.7 mg/dL 09/10/2017 Comp Metabolic Kkl823 eG FR 85 ml/min/1.73m2 09/10 Comp Metabolic Tnm691 BUN 11 mg/dL 09/10/2017 Comp Metabolic Bii447 B/ C Ratio 15.1 Ratio 09/10/2017 Comp Metabolic Zbr904 CA LCIUM 9.1 mg/dL 09/10/2017 Comp Metabolic Uag001 AL K PHOS 61 U/L 09/10/2017 Comp Metabolic Apc051 T(SGOT) 38 U/L 09/10/2017 Comp Metabolic Byu008 AL T(SGPT) 24 U/L 09/10/2017 Comp Metabolic Bqg145 BI LI T 0.5 mg/dL 09/10/2017 Comp Metabolic Yea946 AL BUMIN 4.0 g/dL 09/10/2017 Comp Metabolic Xno274 TP RO 6.6 g/dL 09/10/2017 Comp Metabolic Cqa927 GL OB 2.6 g/dL 09/10/2017 Comp Metabolic Yym238 A/ G Ratio 1.6 Ratio 09/10/2017 Comp Metabolic Aaf205 Os mo 278 mOsmo 09/10/2017 Lipid Ord30 CHOL 148 mg/dL 09/10/2017 Lipid Ord30 HDL 41.0 mg/dl 09/10/2017 Lipid Ord30 TRIG 66 mg/dL 09/10/2017 Lipid Ord30 LDL 94 mg/dL 09/10/2017 Lipid Ord30 C/HDL 3.6 Ratio 09/10/2017 Tsh Ord6 hTSH II 1.57 uIU/mL 09/25/2016 Comp Metabolic Owq047 NA 139 mEq/L 09/25/2016 Comp Metabolic Nwa641 K 4.5 mEq/L 09/25/2016 Comp Metabolic Pqw631 CL 102 mEq/L 09/25/2016 Comp Metabolic Lvc157 CO2 29.0 mEq/L 09/25/2016 Comp Metabolic Czb852 AN ION GAP 13 09/25/2016 Comp Metabolic Jkv070 GL UCOSE 84 mg/dL 09/25/2016 Comp Metabolic Nwb053 Cr eat 0.9 mg/dL 09/25/2016 Comp Metabolic Rdr451 eG FR 70 ml/min/1.73m2 09/25 Comp Metabolic Fui126 BUN 21 mg/dL 09/25/2016 Comp Metabolic Xsf255 B/ C Ratio 24.1 Ratio 09/25/2016 Comp Metabolic Ctw490 CA LCIUM 9.2 mg/dL 09/25/2016 Comp Metabolic Acf350 AL K PHOS 89 U/L 09/25/2016 Comp Metabolic Zlp736 T(SGOT) 19 U/L 09/25/2016 Comp Metabolic Ikw359 AL T(SGPT) 19 U/L 09/25/2016 Comp Metabolic Cyr769 BI LI T 0.5 mg/dL 09/25/2016 Comp Metabolic Jla990 AL BUMIN 4.1 g/dL 09/25/2016 Comp Metabolic Kse695 TP RO 6.5 g/dL 09/25/2016 Comp Metabolic Nxa140 GL OB 2.4 g/dL 09/25/2016 Comp Metabolic Fzi608 A/ G Ratio 1.7 Ratio 09/25/2016 Comp Metabolic Jvg491 Os mo 280 mOsmo 09/25/2016 Cbc With [...] 30.4 % 09/25/2016 Cbc With Differential Ord2 MCH 32.2 pg 09/25/2016 Cbc With Differential Ord2 [place]% 7.7 % 09/25/2016 Cbc With Differential Ord2 MCHC 34.0 pg 09/25/2016 Cbc With Differential Ord2 Eos% 3.2 % 09/25/2016 Cbc With Differential Ord2 PLT 264 K/ul 09/25/2016 Cbc With Differential Ord2 Baso% 0.3 % 09/25/2016 Cbc With Differential Ord2 RDW 13.1 % 09/25/2016 Cbc With Differential Ord2 Neut ABS# 5.45 K/ul 09/25/2016 Cbc With Differential Ord2 Lymph ABS# 2.84 K/ul 09/25/2016 Cbc With Differential Ord2 [place] ABS# 0.7 K/ul 09/25/2016 Cbc With Differential [...] Ord30 C/HDL 5.1 Ratio 04/19/2016 Comp Metabolic Uos678 NA 135 mEq/L 04/19/2016 Comp Metabolic Rck430 K 4.2 mEq/L 04/19/2016 Comp Metabolic Czj295 CL 97 mEq/L 04/19/2016 Comp Metabolic Mjn464 CO2 28.0 mEq/L 04/19/2016 Comp Metabolic Kld391 AN ION GAP 14 04/19/2016 Comp Metabolic Vkc694 GL UCOSE 89 mg/dL 04/19/2016 Comp Metabolic Otn246 Cr eat 0.8 mg/dL 04/19/2016 Comp Metabolic Bgs911 eG FR 77 ml/min/1.73m2 04/19 Comp Metabolic Dfa410 BUN 17 mg/dL 04/19/2016 Comp Metabolic Rwq342 B/ C Ratio 21.3 Ratio 04/19/2016 Comp Metabolic Xih073 CA LCIUM 9.8 mg/dL 04/19/2016 Comp Metabolic Tgm452 AL K PHOS 89 U/L 04/19/2016 Comp Metabolic Njx701 T(SGOT) 16 U/L 04/19/2016 Comp Metabolic Quu311 AL T(SGPT) 13 U/L 04/19/2016 Comp Metabolic Yja850 BI LI T 0.4 mg/dL 04/19/2016 Comp Metabolic Zpa693 AL BUMIN 4.5 g/dL 04/19/2016 Comp Metabolic Ski562 TP RO 7.2 g/dL 04/19/2016 Comp Metabolic Icl197 GL OB 2.7 g/dL 04/19/2016 Comp Metabolic Znq092 A/ G Ratio 1.7 Ratio 04/19/2016 Comp Metabolic Efy027 Os mo 271 mOsmo 04/19/2016 Tsh Ord6 [...] 30.9 pg 04/19/2016 Cbc With Differential Ord2 [place]% 6.4 % 04/19/2016 Cbc With Differential Ord2 MCHC 33.9 pg 04/19/2016 Cbc With Differential Ord2 Eos% 2.1 % 04/19/2016 Cbc With Differential Ord2 PLT 302 K/ul 04/19/2016 Cbc With Differential Ord2 Baso% 0.2 % 04/19/2016 Cbc With Differential Ord2 RDW 13.3 % 04/19/2016 Cbc With Differential Ord2 Neut ABS# 6.64 K/ul 04/19/2016 Cbc With Differential Ord2 Lymph ABS# 3.43 K/ul 04/19/2016 Cbc With Differential Ord2 [place] ABS# 0.7 K/ul 04/19/2016 Cbc With Differential Ord2 Eos ABS# 0.2 K/ul 04/19/2016 Cbc With Differential Ord2 Baso ABS# 0.0 K/ul 04/19/2016 Tsh Ord6 hTSH II 1.91 uIU/mL 07/11/2015 Cbc With Differential Ord2 WBC 7.43 K/ul 07/11/2015 Cbc With Differential Ord2 RBC 4.41 M/ul 07/11/2015 Cbc With Differential Ord2 HGB 13.6 g/dl 07/11/2015 Cbc With Differential Ord2 HCT 40.6 % 07/11/2015 Cbc With Differential Ord2 Neut% 49.5 % 07/11/2015 Cbc With Differential Ord2 MCV 92.1 fl 07/11/2015 Cbc With Differential Ord2 Lymph% 37.0 % 07/11/2015 Cbc With Differential Ord2 MCH 30.8 pg 07/11/2015 Cbc With Differential Ord2 [place]% 7.8 % 07/11/2015 Cbc With Differential Ord2 [...] 2.75 K/ul 07/11/2015 Cbc With Differential Ord2 [place] ABS# 0.6 K/ul 07/11/2015 Cbc With Differential Ord2 Eos ABS# 0.4 K/ul 07/11/2015 Cbc With Differential Ord2 Baso ABS# 0.1 K/ul 07/11/2015 Cbc With Differential Ord2 New Analyzer Notice Please note new ref ranges s tarting 05-24-2015 due to implemntation of new five part differential hematolgy analyzer. 07/11/2015 Comp Metabolic Djy620 NA 137 mEq/L 07/11/2015 Comp Metabolic Eyj687 K 4.4 mEq/L 07/11/2015 Comp Metabolic Nlq022 CL 100 mEq/L 07/11/2015 Comp Metabolic Mie653 CO2 25.0 mEq/L 07/11/2015 Comp Metabolic Hkj502 AN ION GAP 16 07/11/2015 Comp Metabolic Bdj197 GL UCOSE 75 mg/dL 07/11/2015 Comp Metabolic Dcw710 Cr eat 0.8 mg/dL 07/11/2015 Comp Metabolic Xpz173 eG FR 76 ml/min/1.73m2 07/10 Comp Metabolic Msn697 BUN 18 mg/dL 07/11/2015 Comp Metabolic Wll466 B/ C Ratio 22.2 Ratio 07/11/2015 Comp Metabolic Qps550 CA LCIUM 9.5 mg/dL 07/11/2015 Comp Metabolic Dzv473 AL K PHOS 92 U/L 07/11/2015 Comp Metabolic Wfa834 T(SGOT) 16 U/L 07/11/2015 Comp Metabolic Ueh121 AL T(SGPT) 18 U/L 07/11/2015 Comp Metabolic Mbr134 BI LI T 0.6 mg/dL 07/11/2015 Comp Metabolic Vbc725 AL BUMIN 4.3 g/dL 07/11/2015 Comp Metabolic Rnt900 TP RO 6.7 g/dL 07/11/2015 Comp Metabolic Boh101 GL OB 2.4 g/dL 07/11/2015 Comp Metabolic Oyv452 A/ G Ratio 1.7 Ratio 07/11/2015 Comp Metabolic Dhi658 Os mo 274 mOsmo 07/11/2015 Lipid Ord30 CHOL 197 mg/dL 07/11/2015 Lipid Ord30 HDL 55.0 mg/dl 07/11/2015 Lipid Ord30 TRIG 126 mg/dL 07/11/2015 Lipid Ord30 LDL 117 mg/dL 07/11/2015 Lipid Ord30 C/HDL 3.6 Ratio 07/11/2015 B12 Spe102 B12 >1500.00 pg/ml 07/11/2015 Review of Systems [...] lips 06/18/2018 None Full Exam - General 1995 Ears/Nose/Throat lips/teeth/gingiva Overall: normal dentition 06/18/2018 None [...] CPT-4: J0696 09/08/2018 DRAIN/INJECT JOINT/B URSA CPT-4: 60617 12/05/2016 TRIAMCINOLONE ACET I [place] NOS CPT-4: J3301 12/05/2016 DESTRUCT PREMALG LESION CPT-4: 60620 10/22/2016 PPPS, SUBSEQ VISIT CPT- 4: G0439 04/19/2016 Vital Signs Date Vital 10/21/2018 Blood Pressure 1: 112/60 Code: 8480-6 BMI: 33.7 Code: 14924-9 Heart Rate 1: 65 bpm Height: 5'3" SpO2: 96% Weight: 190 lbs 09/08/2018 Blood Pressure 1: 136/78 Code: 8480-6 BMI: 33.7 Code: 27897-9 Heart Rate 1: 53 bpm Height: 5'3" SpO2: 95% Temperature: 36.4 (C ) / 97.5 (F) Weight: 190 lbs 06/18/2018 Blood Pressure 1: 130/70 Code: 8480-6 BMI: 33.5 Code: 15204-3 Heart Rate 1: 72 bpm Height: 5'3" SpO2: 97% Weight: 189 lbs 02/18/2018 Blood Pressure 1: 100/52 Code: 8480-6 BMI: 31.9 Code: 58904-1 Heart Rate 1: 92 bpm Height: 5'3" SpO2: 90% Temperature: 36.6 (C ) / 97.9 (F) Weight: 180 lbs 01/08/2018 Blood Pressure 1: 140/80 Code: 8480-6 BMI: 32.6 Code: 47707-8 Heart Rate 1: 82 bpm Height: 5'3" SpO2: 92% Weight: 184 lbs 09/09/2017 Blood Pressure 1: 118/62 Code: 8480-6 BMI: 32.4 Code: 45668-2 Heart Rate 1: 80 bpm Height: 5'3" SpO2: 94% Weight: 183 lbs 03/25/2017 Blood Pressure 1: 122/68 Code: 8480-6 BMI: 31.2 Code: 67806-8 Heart Rate 1: 91 bpm Height: 5'3" SpO2: 95% Weight: 176 lbs 12/16/2016 Blood Pressure 1: 148/82 Code: 8480-6 Heart Rate 1: 77 bpm Height: 5'3" SpO2: 96% 12/05/2016 Blood Pressure 1: 138/72 Code: 8480-6 Heart Rate 1: 84 bpm Height: 5'3" SpO2: 92% Weight: 10/22/2016 Blood Pressure 1: 136/78 Code: 8480-6 BMI: 30.1 Code: 48251-8 Heart Rate 1: 70 bpm Height: 5'3" SpO2: 95% Weight: 170 lbs 09/25/2016 Blood Pressure 1: 122/72 Code: 8480-6 BMI: 29.8 Code: 93541-6 Heart Rate 1: 67 bpm Height: 5'3" SpO2: 97% Weight: 168 lbs 05/29/2016 Blood Pressure 1: 112/70 Code: 8480-6 BMI: 27.8 Code: 44362-3 Heart Rate 1: 102 bpm Height: 5'3" SpO2: 98% Weight: 157 lbs 04/19/2016 Blood Pressure 1: 128/58 Code: 8480-6 BMI: 28.5 Code: 20716-9 Heart Rate 1: 85 bpm Height: 5'3" SpO2: 98% Waist Measure (cm): 81 cm Weight: 161 lbs 04/17/2016 Blood Pressure 1: 128/82 Code: 8480-6 BMI: 28.5 Code: 62895-2 Heart Rate 1: 85 bpm Height: 5'3" SpO2: 98% Weight: 161 lbs 10/12/2015 Blood Pressure 1: 124/68 Code: 8480-6 BMI: 28.2 Code: 49940-8 Heart Rate 1: 72 bpm Height: 5'3" SpO2: 98% Weight: 159 lbs 07/11/2015 Blood Pressure 1: 128/88 Code: 8480-6 BMI: 28.5 Code: 51891-3 Heart Rate 1: 73 bpm Height: 5'3" SpO2: 93% Weight: 161 lbs 05/16/2015 Blood Pressure 1: 120/82 Code: 8480-6 BMI: 28.3 Code: 22547-9 Heart Rate 1: 82 bpm Height: 5'3" SpO2: 93% Weight: 160 lbs 11/03/2014 Blood Pressure 1: 132/74 Code: 8480-6 BMI: 27.6 Code: 56244-7 Heart Rate 1: 80 bpm Height: 5'3" [...] movement 06/18/2018 None cough Location in the alfie ng 02/18/2018 None cough Quality constant 02/18/2018 [...] Encounters Encounter Performer Loca tion Codes Date ([id number]) [id number] EST. P ATIENT, LEVEL IV Diagnosis: Essential (primary) hypertension[ICD10: I10] Diagnosis: Low back pain[ICD10: M54.5] Diagnosis: Pain in right hip[ICD10: M25.551] Diagnosis: Actinic keratosis[ICD10: L57.0] [facility] CPT-4: 97328 10/21/2018 ([id number] [id number] EST. P ATIENT, LEVEL III Diagnosis: Cough[ICD10: R05] Diagnosis: Acute bronchitis, unspecified[ICD10: J20.9] [facility] CPT-4: 80391 09/08/2018 [id number]) [id number] EST. P ATIENT, LEVEL IV Diagnosis: Essential (primary) hypertension[ICD10: I10] Diagnosis: Pain in right hip[ICD10: M25.551] Diagnosis: Low back pain[ICD10: M54.5] [facility] CPT-4: 84560 06/18/2018 ([id number]) [id number] EST. P ATIENT, LEVEL III Diagnosis: Acute bronchitis due to other specified organisms[ICD10: J20.8] Diagnosis: Cough[ICD10: R05] Tamara Jones MD, [facility] CPT-4: 45192 02/18/2018 ([id number]) 05952 EST. P ATIENT, LEVEL IV Diagnosis: Essential (primary) hypertension[ICD10: I10] Diagnosis: Low back pain[ICD10: M54.5] Diagnosis: Spinal stenosis, lumbosacral region[ICD10: M48.07] Diagnosis: Mixed hyperlipidemia[ICD10: E78.2] Tamara Jones MD, [facility] CPT- 4: 81318 01/08/2018 ([id number]) 21948 EST. P ATIENT, LEVEL IV Diagnosis: Essential (primary) hypertension[ICD10: I10] Diagnosis: Low back pain[ICD10: M54.5] Diagnosis: Spinal stenosis, lumbosacral region[ICD10: M48.07] Tamara Jones MD, [facility] CPT-4: 74279 09/09/2017 ([id number]) 06637 EST. P ATIENT, LEVEL IV Diagnosis: Essential (primary) hypertension[ICD10: I10] Diagnosis: Mixed hyperlipidemia[ICD10: E78.2] Diagnosis: Low back pain[ICD10: M54.5] Diagnosis: Pain in right hip[ICD10: M25.551] Diagnosis: Pain in left hip[ICD10: M25.552] Tamara Jones MD, [facility] CPT-4: 31836 03/25/2017 ([id number]) 98330 EST. P ATIENT, LEVEL III Diagnosis: Low back pain[ICD10: M54.5] Diagnosis: Sciatica, left side[ICD10: M54.32] Elina Jones MD, [facility] CPT-4: 84547 12/16/2016 [id number] EST. PATIENT, LEVEL III Diagnosis: Sacroiliitis, not elsewhere classified[ICD10: M46.1] Diagnosis: Sciatica, left side[ICD10: M54.32] Diagnosis: Pain in left hip[ICD10: M25.552] Evelyn Jones MD, [facility] CPT-4: 03945 12/05/2016 ([id number]) 94034 EST. P ATIENT, LEVEL IV Diagnosis: Encounter for screening mammogram for malignant neoplasm of breast[ICD10: Z12.31] Diagnosis: Essential (primary) hypertension[ICD10: I10] Diagnosis: Mixed hyperlipidemia[ICD10: E78.2] Diagnosis: Major depressive disorder, recurrent, mild[ICD10: F33.0] Tamara Jones MD, C CPT-4: 69658 09/25/2016 ([id number]) 65841 EST. P ATIENT, LEVEL IV Diagnosis: Essential (primary) hypertension[ICD10: I10] Diagnosis: Mixed hyperlipidemia[ICD10: E78.2] Diagnosis: Major depressive disorder, recurrent, moderate[ICD10: F33.1] Tamara Jones MD, [facility] CPT-4: 38263 05/29/2016 ([id number]) 58537 EST. P ATIENT, LEVEL IV Diagnosis: Essential (primary) hypertension[ICD10: I10] Diagnosis: Mixed hyperlipidemia[ICD10: E78.2] Diagnosis: Pain in right hip[ICD10: M25.551] Diagnosis: Major depressive disorder, recurrent, mild[ICD10: F33.0] Tamara Jones MD, [facility] CPT-4: 87975 04/17/2016 ([id number]) 12102 EST. P ATIENT, LEVEL IV Diagnosis: Essential (primary) hypertension[ICD10: I10] Diagnosis: Low back pain[ICD10: M54.5] Diagnosis: Mixed hyperlipidemia[ICD10: E78.2] Tamara Jones MD, [facility] CPT- 4: 95777 10/12/2015 ([id number]) 08568 EST. P ATIENT, LEVEL III Diagnosis: Essential (primary) hypertension[ICD10: I10] Diagnosis: Mixed hyperlipidemia[ICD10: E78.2] Diagnosis: Vitamin B12 deficiency anemia, unspecified[ICD10: D51.9] Elina Jones MD, [facility] CPT-4: 82704 07/11/2015 ([id number]) 80952 EST. P ATIENT, LEVEL IV Diagnosis: Essential (primary) hypertension[ICD10: I10] Diagnosis: Low back pain[ICD10: M54.5] Diagnosis: Sciatica, right side[ICD10: M54.31] [facility] CPT-4: 23064 05/16/2015 ([id number]) OFFICE VISI Tamara [facility] - LEVEL 4 Diagnosis: ESSENTIAL HYPERTENSION[ICD9: 401.9] Diagnosis: HYPERLIPIDEMIA[ICD9: 272.4] Diagnosis: OSTEOARTH NOS-UNSPEC[ICD9: 715.90] Diagnosis: Sacroiliitis[ICD9: 720.2] Tamara Jones MD, [facility] CPT-4: 80605 11/03/2014 Plan of Care Planned Activity Notes [...] patient and her sister. 10/21/2018 Appointment: Tamara oJnes WPtel: [facility] (15 min) Moderate 10/21/2018 Patient Education: Patient Medication Summary Completed 10/21/2018 Patient Education: Hypertension Completed 10/21/2018 Patient Education: Back Pain Completed 10/21/2018 Visit Plan: Bronchitis - acute case of bronchitis identified. Pt has been given antibiotics, breathing treatments as appropriate, and pt has been instructed to call if symptoms are not improved, or if symptoms acutely worsen. 09/08/2018 App[facility]ment[phone] (30 min) Complex 09/08/2018 Patient Education: Patient [...] [place]. 06/18/2018 Appointment: Tamara Jones WPtel: [phone] [phone] (15 min) Moderate 06/18/2018 Patient Education: Patient Medication Summary Completed 06/18/2018 Patient Education: Back Pain Completed 06/18/2018 Appointment: Tamara Jones WPtel: [phone] [facility] [place] (15 min) Moderate 06/15/2018 Appointment: Elina Rivera WPtel: [phone] [phone] [place] (15 min) Moderate 02/27/2018 [facility]ment: [phone] [place] (15 min) Moderate 02/23/2018 Visit Plan: Bronchitis - acute case of bronchitis identified. Pt has been given antibiotics, breathing treatments as appropriate, and pt has been instructed to call if symptoms are not improved, or if symptoms acutely worsen. 02/18/2018 Appointment: Tamara Jones WPtel: [phone] (15 min) Moderate 02/18/2018 Patient Education: Patient Medication Summary Completed 02/18/2018 App[facility]ment: [phone] [place] ([facility] min) Moderate 02/16/2018 Visit Plan: [...] not improving. 01/08/2018 Appointment: Tamara Jones WPtel: [phone] [phone] (15 min) Moderate 01/08/2018 Patient Education: [...] mag lab 09/09/2017 Appointment: Tamara Jones WPtel: [facility] (15 min) Moderate 09/09/2017 Patient Education: Patient Medication Summary Completed 09/09/2017 Care Plan: Referral Order SNOMED-CT : [id number] Pending 09/09/2017 Appointment: Elina Rivera WPtel: [phone] [facility] - Annual Wellness Visit 04/25/2017 Visit Plan: [...] continue with current treatment/anti-inflammatory prn. 03/25/2017 Appointment: Karen Tamara WPtel: [phone] (15 min) Moderate 03/25/2017 Patient Education: Patient Medication Summary Completed 03/25/2017 Patient Education: Obesity Completed 03/25/2017 Visit Plan: Low back pain-plan to i ncrease gabapentin-use hydrocodone for break through pain-discussed PT-patient to make appt with Dr Aguilera to discuss further treatment options 12/16/2016 Appointment: Elina Rivera WPtel: [phone] (15 min) Moderate 12/16/2016 Patient Education: Patient [...] they worsen. 12/05/2016 Appointment: Evelyn Orosco WPtel: [address] [place], [place] [phone] (30 min) Complex 12/05/2016 Patient Education: Patient Medication Summary Completed 12/05/2016 Visit Plan: Wound Instructions - Pt was instructed to keep the wound clean, wash with antibacterial soap, use triple antibiotic ointment, call if redness, pustular drainage, or any other acute concerns. 10/22/2016 Appointment: Elina Rivera WPtel: [phone] (15 min) Moderate 10/22/2016 Patient Education: Patient [...] with SSRI 09/25/2016 Appointment: [phone] (15 min) Moderate 09/25/2016 Patient Education: Patient Medication Summary Completed 09/25/2016 Patient Education: Obesity Completed 09/25/2016 [facility] Plan[facility] [id number] Pending 09/25/2016 Visit Plan: Hypertension - well [...] as prescribed. 05/29/2016 Appointment: Tam[facility] Jones [facility]el[phone] (15 min) Moderate 05/29/2016 Patient Education: Patient [...] surrogate. 04/19/2016 Appointment: Elina Rivera WPtel: [phone] [phone] [place] [address] - Annual Wellness Visit 04/19/2016 Patient Education: Patient Medication Summary Completed 04/19/2016 Patient Education: Obesity Completed 04/19/2016 Visit Plan: Hypertension - well con trolled [...] SSRI 04/17/2016 Appointment: Tamara Jones WPtel: [phone] [phone] (15 min) Moderate 04/17/2016 Patient Education: Patient [...] to medications. 10/12/2015 Appointment: Tamara Jones WPtel: [address] [place], [place] [address] (30 min) [facility] 10/12/2015 Patient Education: Patient Medication Summary Completed [...] they worsen. 11/03/2014 Appointment: Tam[facility] Jones [facility]el[phone] [place] ([place] New Patient 11/03/2014 Patient Education: [...] pressure readings at home. fasting labs to [facility] . Wound Instructions - Pt was [...]
--- OUTSIDE RECORDS SUMMARY | 2019-09-24 08:38 | XMS REPORT | CCD ---
Author Author Marjorie Jones Organization Tamara Jones MD, [facility] Address [address] [place] [address] Phone Care Team Providers Care Hand Sign Writer Name Role Phone PP Unavailable CCM Unavailable Summary Purpose Interface Exchange Insurance Providers Payer name Policy type / Coverage type Covered alliance party ID Effective Begin Date Effective End Date [place] [employer] Medicare Part B [id number] Unknown [facility] icare Part B [id number] Un known Family history Mother Diagnosis Age At Onset Diabetes mellitus Type 2 Unknown Father Diagnosis Age At Onset Depression Unknown Hyperlipidemia Unknown Hypertension Unknown Stroke Unknown Coronary Artery Disease Unknown Social History Social History Element Codes Description Effective Dates Marital status Unknown M arried Walter 11/03/2014 Number of children Unknown 0 11/03/2014 Employment Unknown Curre ntly unemployed 11/03/[address]: 2195738 Quit over 10 years ago 199911/03/2014 Alcohol [...] Date Stop Date Sta tus Fill Instructions diclofenac sodium 75 mg tablet,delayed release RxNorm: 514704 TAKE 1 TABLET BY MOUT H TWICE DAILY 10/28/2018 No Stop Date Active Efudex 5 % topical c ream RxNorm: 257739 1 Application TOP BID apply from upper arm to wrist z31iace, then change to other arm, then 10 days later do right leg then left leg 10/21/2018 11/19/2018 Active Ventolin HFA 90 mcg/ actuation aerosol inhaler RxNorm: 086193 2 Puff(s) INH Q4 PRN 09/08/2018 11/06/2018 Ac tive prednisone 20 mg tablet RxNorm: 458642 2 Tablet(s) PO daily 09/08/2018 09/12/2018 Inactive START TOMORROW 09/09 cefdinir 300 mg capsule RxNorm: 070227 1 Capsule(s) PO BID 09/08/2018 09/14/2018 Inactive START TOMORROW Zithromax Z-Feng 250 mg tablet RxNorm: 201007 1 Tablet(s) PO UD 09/08/2018 09/12/2018 Inactive START TODAY ceftriaxone 500 mg s olution for injection RxNorm: 2161504 Inj 09/08/2018 09/08/2018 Inactive Kenalog 40 mg/mL christoph pension for injection RxNorm: 2418797 Milliliter(s) Inj 09/08/2018 09/08/2018 In active gabapentin 100 mg ca psule RxNorm: 854908 TAKE 1 CAPSULE BY [facility]OTT TH ONCE DAILY IN THE MORNING 08/10/2018 No Stop Date Active lisinopril 10 mg-hyd rochlorothiazide 12.5 mg tablet RxNorm: 415897 TAKE 1 TABLET BY MOUTH ONCE DAILY 07/01/2018 No Stop Date Active hydrocodone 7.5 mg-a cetaminophen 325 mg tablet RxNorm: 429878 1 Tablet(s) PO TID 06/29/2018 07/28/2018 In active memantine 10 mg tablet RxNorm: 643177 1 Tablet(s) PO BID 06/18/2018 01/13/2019 Active Aricept 10 mg tablet RxNorm: 343488 1/2 tab daily x 2 weeks then increase to 1 Tablet(s) PO daily thereafter 06/18/2018 08/11/2019 Active escitalopram 10 mg t ablet RxNorm: 552026 TAKE ONE TABLET BY MO [facility] ONCE DAILY IN THE EVENING 06/18/2018 No Stop Date Active gabapentin 100 mg ca psule RxNorm: 720601 TAKE 1 CAPSULE BY SCOTT TH ONCE DAILY IN THE MORNING 06/11/2018 08/09/2018 Inactive Lipitor 20 mg tablet RxNorm: 125891 [facility] 05/06/2018 No Stop Date Active hydrocodone 7.5 mg-a cetaminophen 325 mg tablet RxNorm: 646457 1 Tablet(s) PO TID 04/30/2018 05/29/2018 In active hydrocodone 7.5 mg-a cetaminophen 325 mg tablet RxNorm: 572514 1 Tablet(s) PO TID 03/26/2018 04/24/2018 In active Ventolin HFA 90 mcg/ actuation aerosol inhaler RxNorm: 332053 2 INH TID x 1 week th en twice daily x 5 days then as needed. 02/18/2018 04/18/2018 Inactive plea se give pt a spacer cefdinir 300 mg capsule RxNorm: 391710 1 Capsule(s) PO BID 02/18/2018 02/24/2018 Inactive prednisone 20 mg tablet RxNorm: 443012 2 Tablet(s) PO daily 02/18/2018 02/22/2018 Inactive memantine 10 mg tablet RxNorm: 401508 1/2 tab nightly x1wk then 1/2tab bid x1w k then 1/2tab am and 1tab hs x1wk then 1 Tablet(s) PO BID 01/08/2018 06/17/2018 Inactive hydrocodone 7.5 mg-a cetaminophen 325 mg tablet RxNorm: 795147 1 Tablet(s) PO TID 01/08/2018 02/06/2018 In active gabapentin 100 mg ca psule RxNorm: 232396 TAKE 1 CAPSULE BY [facility] ONCE DAILY IN THE MORNING 12/24/2017 06/10/2018 Inactive hydrocodone 7.5 mg-a cetaminophen 325 mg tablet RxNorm: 063458 1-2 Tablet(s) PO Q6 a s needed 12/01/2017 12/22/2017 Inactive diclofenac sodium 75 mg tablet,delayed release RxNorm: 967976 TAKE ONE TABLET BY [facility] TWICE DAILY 11/10/2017 10/27/2018 Inactive hydrocodone 7.5 mg-a cetaminophen 325 mg tablet RxNorm: 506770 1-2 Tablet(s) PO Q6 a s needed 10/17/2017 11/07/2017 Inactive hydrocodone 7.5 mg-a cetaminophen 325 mg tablet RxNorm: 514841 1-2 Tablet(s) PO Q6 a s needed 09/01/2017 09/22/2017 Inactive hydrocodone 7.5 mg-a cetaminophen 325 mg tablet RxNorm: 836773 1-2 Tablet(s) PO Q6 a s needed 08/25/2017 08/31/2017 Inactive hydrocodone 7.5 mg-a cetaminophen 325 mg tablet RxNorm: 938614 1-2 Tablet(s) PO Q6 a s needed 07/14/2017 08/04/2017 Inactive lisinopril 10 mg-hyd rochlorothiazide 12.5 mg tablet RxNorm: 360294 Tablet(s) TAKE ONE TABLET BY MOUTH ONCE DAILY 07/14/2017 06/30/2018 Inactive gabapentin 100 mg ca psule RxNorm: 079058 1 Capsule(s) PO QAM 06/23/2017 12/19/2017 Inactive hydrocodone 7.5 mg-a cetaminophen 325 mg tablet RxNorm: 347552 1-2 Tablet(s) PO Q6 a s needed 05/20/2017 06/10/2017 Inactive Lipitor 20 mg tablet RxNorm: 184211 1 Tablet(s) PO TIW 05/13/2017 05/05/2018 Inactive escitalopram 10 mg t ablet RxNorm: 135623 1 Tablet(s) PO QPM 05/13/2017 05/07/2018 Inactive escitalopram 10 mg t ablet RxNorm: 751537 1 Tablet(s) PO QPM 04/16/2017 05/12/2017 Inactive lisinopril 10 mg-hyd rochlorothiazide 12.5 mg tablet RxNorm: 487123 TAKE ONE TABLET BY MOUTH ONCE DAILY 04/15/2017 07/13/2017 Inactive escitalopram 10 mg t ablet RxNorm: 704485 1 Tablet(s) PO QPM 04/09/2017 04/15/2017 Inactive hydrocodone 7.5 mg-a cetaminophen 325 mg tablet RxNorm: 314014 1-2 Tablet(s) PO Q6 a s needed 03/17/2017 04/07/2017 Inactive hydrocodone 7.5 mg-a cetaminophen 325 mg tablet RxNorm: 516719 1-2 Tablet(s) PO Q6 a s needed 12/27/2016 01/17/2017 Inactive gabapentin 100 mg ca psule RxNorm: 122874 1 Capsule(s) PO QAM 12/16/2016 06/13/2017 Inactive prednisone 20 mg tablet RxNorm: 133709 2 Tablet(s) PO daily 12/06/2016 12/05/2016 Inactive prednisone 20 mg tablet RxNorm: 504336 2 Tablet(s) PO daily 12/06/2016 12/15/2016 Inactive Kenalog 40 mg/mL christoph pension for injection RxNorm: 1442102 1 Milliliter(s) Inj 12/05/2016 12/05/2016 In active diclofenac sodium 75 mg tablet,delayed release RxNorm: 178975 1 Tablet(s) PO BID 10/30/2016 10/24/2017 In active hydrocodone 7.5 mg-a cetaminophen 325 mg tablet RxNorm: 591101 1-2 Tablet(s) PO Q6 a s needed 10/23/2016 11/13/2016 Inactive hydrocodone 7.5 mg-a cetaminophen 325 mg tablet RxNorm: 934340 1-2 Tablet(s) PO Q6 a s needed 08/16/2016 09/06/2016 Inactive lisinopril 10 mg-hyd rochlorothiazide 12.5 mg tablet RxNorm: 601889 TAKE ONE TABLET BY MOUTH ONCE DAILY 06/07/2016 04/14/2017 Inactive Lipitor 40 mg tablet RxNorm: 465013 1 Tablet(s) PO TIW 05/31/2016 05/01/2017 Inactive Lipitor 20 mg tablet RxNorm: 185231 1 Tablet(s) PO TIW 05/29/2016 05/30/2016 Inactive hydrocodone 7.5 mg-a cetaminophen 325 mg tablet RxNorm: 136446 1-2 Tablet(s) PO Q6 a s needed 05/23/2016 06/13/2016 Inactive escitalopram 10 mg t ablet RxNorm: 637521 1 Tablet(s) PO QPM st art at 1/2 pill nightly x 1wk then a full pill thereafter 04/17/2016 04/08/2017 Inactive hydrocodone 7.5 mg-a cetaminophen 325 mg tablet RxNorm: 661454 1-2 Tablet(s) PO Q6 a s needed 02/28/2016 03/20/2016 Inactive hydrocodone 7.5 mg-a cetaminophen 325 mg tablet RxNorm: 245402 1-2 Tablet(s) PO Q6 a s needed 12/04/2015 12/25/2015 Inactive diclofenac sodium 75 mg tablet,delayed release RxNorm: 696333 1 Tablet(s) PO BID 10/23/2015 10/16/2016 In active hydrocodone 7.5 mg-a cetaminophen 325 mg tablet RxNorm: 622243 1-2 Tablet(s) PO Q6 a s needed 09/12/2015 12/03/2015 Inactive promethazine 25 mg t ablet RxNorm: 342283 1 Tablet(s) PO Q6 as needed 08/30/2015 No Stop Date Active lisinopril 10 mg-hyd rochlorothiazide 12.5 mg tablet RxNorm: 944446 1 Tablet(s) PO daily 05/09/2015 05/02/2016 Inactive hydrocodone 7.5 mg-a cetaminophen 325 mg tablet RxNorm: 767720 1-2 Tablet(s) PO Q6 a s needed 04/17/2015 09/11/2015 Inactive lisinopril 10 mg-hyd rochlorothiazide 12.5 mg tablet RxNorm: 229820 1 Tablet(s) PO daily 01/31/2015 05/08/2015 Inactive hydrocodone 7.5 mg-a cetaminophen 325 mg tablet RxNorm: 580872 1-2 Tablet(s) PO Q6 a s needed 01/18/2015 04/16/2015 Inactive diclofenac sodium 75 mg tablet,delayed release RxNorm: 986557 1 Tablet(s) PO BID 01/18/2015 10/14/2015 In active Voltaren 1 % topical gel RxNorm: 617585 4 Gram(s) TOP QID chelsie ly to sacroiliac joint 11/03/2014 05/15/2015 In active lisinopril 10 mg-hyd rochlorothiazide 12.5 mg tablet RxNorm: 676805 1 Tablet(s) PO daily 11/03/2014 12/02/2014 Inactive B-12 Plus sublingual RxNorm: 60226 sublingual No Start Date Active amoxicillin 500 mg c apsule RxNorm: 597481 4 Capsule(s) PO as do ctor directed 1 hours before appt No Start Date Active gabapentin 300 mg ca psule RxNorm: 097371 1 Capsule(s) PO QHS No Start Date Active promethazine 25 mg t ablet RxNorm: 611009 1 Tablet(s) PO Q6 as needed No Start Date 08/29/2015 Inactive diclofenac sodium 75 mg tablet,delayed release RxNorm: 633626 1 Tablet(s) PO BID No Start Date 01/17/2015 Inactive hydrocodone 7.5 mg-a cetaminophen 325 mg tablet RxNorm: 511919 1-2 Tablet(s) PO Q6 a s needed No Start Date 01/17/2015 Inactive Crestor 5 mg tablet RxNorm: 296105 1 Tablet(s) PO 3 x week No Start Date 05/28/2016 Inactive Medication Administered Medication Codes Instruc tions Start Date Status ceftriaxone 500 mg solution for injection RxNorm: 7118682 09/08/2018 No longer A ctive Kenalog 40 mg/mL suspension for injection RxNorm: 9035487 Milliliter 09/08/2018 No longer Active Kenalog 40 mg/mL suspension for injection RxNorm: 8624735 1Milliliter 12/05/2016 N o longer Active Immunizations [...] Item Item Code Result Date Comp Metabolic Ndu496 NA 140 mEq/L 01/14/2018 Comp Metabolic Aye002 K 3.8 mEq/L 01/14/2018 Comp Metabolic Vgm960 CL 101 mEq/L 01/14/2018 Comp Metabolic Cwd881 CO2 30.0 mEq/L 01/14/2018 Comp Metabolic Lzc133 AN ION GAP 13 01/14/2018 Comp Metabolic Rwx410 GL UCOSE 89 mg/dL 01/14/2018 Comp Metabolic Xbb054 Cr eat 1.0 mg/dL 01/14/2018 Comp Metabolic Hzq390 eG FR 63 ml/min/1.73m2 01/14 Comp Metabolic Lhc875 BUN 16 mg/dL 01/14/2018 Comp Metabolic Zmw310 B/ C Ratio 16.8 Ratio 01/14/2018 Comp Metabolic Evo788 CA LCIUM 9.2 mg/dL 01/14/2018 Comp Metabolic Nun578 AL K PHOS 88 U/L 01/14/2018 Comp Metabolic Zqv403 T(SGOT) 13 U/L 01/14/2018 Comp Metabolic Pzx529 AL T(SGPT) 9 U/L 01/14/2018 Comp Metabolic Dnt303 BI LI T 0.5 mg/dL 01/14/2018 Comp Metabolic Kdc917 AL BUMIN 4.0 g/dL 01/14/2018 Comp Metabolic Wpj443 TP RO 6.5 g/dL 01/14/2018 Comp Metabolic Lmg682 GL OB 2.5 g/dL 01/14/2018 Comp Metabolic Sdc054 A/ G Ratio 1.6 Ratio 01/14/2018 Comp Metabolic Aln589 Os mo 280 mOsmo 01/14/2018 Tsh Ord6 [...] 31.5 pg 01/14/2018 Cbc With Differential Ord2 [place]% 8.5 % 01/14/2018 Cbc With Differential Ord2 [...] 3.44 K/ul 01/14/2018 Cbc With Differential Ord2 [place] ABS# 0.9 K/ul 01/14/2018 Cbc With Differential [...] 31.0 pg 09/10/2017 Cbc With Differential Ord2 [place]% 9.2 % 09/10/2017 Cbc With Differential Ord2 [...] 1.82 K/ul 09/10/2017 Cbc With Differential Ord2 [place] ABS# 0.5 K/ul 09/10/2017 Cbc With Differential Ord2 Eos ABS# 0.1 K/ul 09/10/2017 Cbc With Differential Ord2 Baso ABS# 0.0 K/ul 09/10/2017 Tsh Ord6 TSH (3rd IS) 1.22 uIU/mL 09/10/2017 Comp Metabolic Dwo624 NA 140 mEq/L 09/10/2017 Comp Metabolic Blc456 K 4.2 mEq/L 09/10/2017 Comp Metabolic Nxa409 CL 107 mEq/L 09/10/2017 Comp Metabolic Lkc030 CO2 25.0 mEq/L 09/10/2017 Comp Metabolic Bvw194 AN ION GAP 12 09/10/2017 Comp Metabolic Qrw470 GL UCOSE 84 mg/dL 09/10/2017 Comp Metabolic Fhh642 Cr eat 0.7 mg/dL 09/10/2017 Comp Metabolic Uzf088 eG FR 85 ml/min/1.73m2 09/10 Comp Metabolic Bio497 BUN 11 mg/dL 09/10/2017 Comp Metabolic Pes030 B/ C Ratio 15.1 Ratio 09/10/2017 Comp Metabolic Onv344 CA LCIUM 9.1 mg/dL 09/10/2017 Comp Metabolic Pqy622 AL K PHOS 61 U/L 09/10/2017 Comp Metabolic Hcp616 T(SGOT) 38 U/L 09/10/2017 Comp Metabolic Sab303 AL T(SGPT) 24 U/L 09/10/2017 Comp Metabolic Yjl233 BI LI T 0.5 mg/dL 09/10/2017 Comp Metabolic Vtl266 AL BUMIN 4.0 g/dL 09/10/2017 Comp Metabolic Dnh513 TP RO 6.6 g/dL 09/10/2017 Comp Metabolic Bxk482 GL OB 2.6 g/dL 09/10/2017 Comp Metabolic Woh390 A/ G Ratio 1.6 Ratio 09/10/2017 Comp Metabolic Loi660 Os mo 278 mOsmo 09/10/2017 Lipid Ord30 CHOL 148 mg/dL 09/10/2017 Lipid Ord30 HDL 41.0 mg/dl 09/10/2017 Lipid Ord30 TRIG 66 mg/dL 09/10/2017 Lipid Ord30 LDL 94 mg/dL 09/10/2017 Lipid Ord30 C/HDL 3.6 Ratio 09/10/2017 Tsh Ord6 hTSH II 1.57 uIU/mL 09/25/2016 Comp Metabolic Nfe234 NA 139 mEq/L 09/25/2016 Comp Metabolic Hwj420 K 4.5 mEq/L 09/25/2016 Comp Metabolic Zzf027 CL 102 mEq/L 09/25/2016 Comp Metabolic Ptb296 CO2 29.0 mEq/L 09/25/2016 Comp Metabolic Div115 AN ION GAP 13 09/25/2016 Comp Metabolic Moa707 GL UCOSE 84 mg/dL 09/25/2016 Comp Metabolic Tgo483 Cr eat 0.9 mg/dL 09/25/2016 Comp Metabolic Sji296 eG FR 70 ml/min/1.73m2 09/25 Comp Metabolic Zfd778 BUN 21 mg/dL 09/25/2016 Comp Metabolic Unh483 B/ C Ratio 24.1 Ratio 09/25/2016 Comp Metabolic Fmr675 CA LCIUM 9.2 mg/dL 09/25/2016 Comp Metabolic Xmt881 AL K PHOS 89 U/L 09/25/2016 Comp Metabolic Ksy573 T(SGOT) 19 U/L 09/25/2016 Comp Metabolic Dhg709 AL T(SGPT) 19 U/L 09/25/2016 Comp Metabolic Tbt223 BI LI T 0.5 mg/dL 09/25/2016 Comp Metabolic Fwx182 AL BUMIN 4.1 g/dL 09/25/2016 Comp Metabolic Kdc854 TP RO 6.5 g/dL 09/25/2016 Comp Metabolic Stu174 GL OB 2.4 g/dL 09/25/2016 Comp Metabolic Gnq422 A/ G Ratio 1.7 Ratio 09/25/2016 Comp Metabolic Izn842 Os mo 280 mOsmo 09/25/2016 Cbc With [...] 32.2 pg 09/25/2016 Cbc With Differential Ord2 [place]% 7.7 % 09/25/2016 Cbc With Differential Ord2 [...] 2.84 K/ul 09/25/2016 Cbc With Differential Ord2 [place] ABS# 0.7 K/ul 09/25/2016 Cbc With Differential [...] Ord30 C/HDL 5.1 Ratio 04/19/2016 Comp Metabolic Djy404 NA 135 mEq/L 04/19/2016 Comp Metabolic Sxj197 K 4.2 mEq/L 04/19/2016 Comp Metabolic Mbm411 CL 97 mEq/L 04/19/2016 Comp Metabolic Nqr012 CO2 28.0 mEq/L 04/19/2016 Comp Metabolic Jxg084 AN ION GAP 14 04/19/2016 Comp Metabolic Gbn585 GL UCOSE 89 mg/dL 04/19/2016 Comp Metabolic Uxp866 Cr eat 0.8 mg/dL 04/19/2016 Comp Metabolic Khp661 eG FR 77 ml/min/1.73m2 04/19 Comp Metabolic Cbv938 BUN 17 mg/dL 04/19/2016 Comp Metabolic Gka089 B/ C Ratio 21.3 Ratio 04/19/2016 Comp Metabolic Jxo980 CA LCIUM 9.8 mg/dL 04/19/2016 Comp Metabolic Hnd447 AL K PHOS 89 U/L 04/19/2016 Comp Metabolic Erp205 T(SGOT) 16 U/L 04/19/2016 Comp Metabolic Ung551 AL T(SGPT) 13 U/L 04/19/2016 Comp Metabolic Dct773 BI LI T 0.4 mg/dL 04/19/2016 Comp Metabolic Spc967 AL BUMIN 4.5 g/dL 04/19/2016 Comp Metabolic Aur796 TP RO 7.2 g/dL 04/19/2016 Comp Metabolic Nwv666 GL OB 2.7 g/dL 04/19/2016 Comp Metabolic Yde538 A/ G Ratio 1.7 Ratio 04/19/2016 Comp Metabolic Hqi761 Os mo 271 mOsmo 04/19/2016 Tsh Ord6 [...] 30.9 pg 04/19/2016 Cbc With Differential Ord2 [place]% 6.4 % 04/19/2016 Cbc With Differential Ord2 [...] 3.43 K/ul 04/19/2016 Cbc With Differential Ord2 [place] ABS# 0.7 K/ul 04/19/2016 Cbc With Differential [...] 30.8 pg 07/11/2015 Cbc With Differential Ord2 [place]% 7.8 % 07/11/2015 Cbc With Differential Ord2 [...] 2.75 K/ul 07/11/2015 Cbc With Differential Ord2 [place] ABS# 0.6 K/ul 07/11/2015 Cbc With Differential Ord2 Eos ABS# 0.4 K/ul 07/11/2015 Cbc With Differential Ord2 Baso ABS# 0.1 K/ul 07/11/2015 Cbc With Differential Ord2 New Analyzer Notice Please note new ref ranges s tarting 05-24-2015 due to implemntation of new five part differential hematolgy analyzer. 07/11/2015 Comp Metabolic Rde945 NA 137 mEq/L 07/11/2015 Comp Metabolic Mgt924 K 4.4 mEq/L 07/11/2015 Comp Metabolic Mrx135 CL 100 mEq/L 07/11/2015 Comp Metabolic Bkz055 CO2 25.0 mEq/L 07/11/2015 Comp Metabolic Cde028 AN ION GAP 16 07/11/2015 Comp Metabolic Tmu203 GL UCOSE 75 mg/dL 07/11/2015 Comp Metabolic Zvo929 Cr eat 0.8 mg/dL 07/11/2015 Comp Metabolic Wls727 eG FR 76 ml/min/1.73m2 07/10 Comp Metabolic Zsc946 BUN 18 mg/dL 07/11/2015 Comp Metabolic Xng084 B/ C Ratio 22.2 Ratio 07/11/2015 Comp Metabolic Upr802 CA LCIUM 9.5 mg/dL 07/11/2015 Comp Metabolic Tbf513 AL K PHOS 92 U/L 07/11/2015 Comp Metabolic Pkm449 T(SGOT) 16 U/L 07/11/2015 Comp Metabolic Lkq679 AL T(SGPT) 18 U/L 07/11/2015 Comp Metabolic Cum858 BI LI T 0.6 mg/dL 07/11/2015 Comp Metabolic Xlk819 AL BUMIN 4.3 g/dL 07/11/2015 Comp Metabolic Rzn814 TP RO 6.7 g/dL 07/11/2015 Comp Metabolic Dgt994 GL OB 2.4 g/dL 07/11/2015 Comp Metabolic Olx025 A/ G Ratio 1.7 Ratio 07/11/2015 Comp Metabolic Bse433 Os mo 274 mOsmo 07/11/2015 Lipid Ord30 CHOL 197 mg/dL 07/11/2015 Lipid Ord30 HDL 55.0 mg/dl 07/11/2015 Lipid Ord30 TRIG 126 mg/dL 07/11/2015 Lipid Ord30 LDL 117 mg/dL 07/11/2015 Lipid Ord30 C/HDL 3.6 Ratio 07/11/2015 B12 Gbu926 B12 >1500.00 pg/ml 07/11/2015 Review of Systems [...] 1994 Ears/Nose/Throat oral cavity/pharynx/larynx Overall: hypopharynx benign 06/18/2018 [...] sounds 06/18/2018 None Full Exam - General 1995 Musculoskeletal spine, ribs and pelvis Overall: spine benign 06/18/2018 None Full Exam - General 1995 Musculoskeletal spine, ribs and pelvis Overall: sacroiliac [...] CPT-4: J0696 09/08/2018 DRAIN/INJECT JOINT/B URSA CPT-4: 40312 12/05/2016 TRIAMCINOLONE ACET I [place] NOS CPT-4: J3301 12/05/2016 DESTRUCT PREMALG LESION CPT-4: 53419 10/22/2016 PPPS, SUBSEQ VISIT CPT- 4: G0439 04/19/2016 Vital Signs Date Vital 10/21/2018 Blood Pressure 1: 112/60 Code: 8480-6 BMI: 33.7 Code: 41735-0 Heart Rate 1: 65 bpm Height: 5'3" SpO2: 96% Weight: 190 lbs 09/08/2018 Blood Pressure 1: 136/78 Code: 8480-6 BMI: 33.7 Code: 26902-3 Heart Rate 1: 53 bpm Height: 5'3" SpO2: 95% Temperature: 36.4 (C ) / 97.5 (F) Weight: 190 lbs 06/18/2018 Blood Pressure 1: 130/70 Code: 8480-6 BMI: 33.5 Code: 97237-6 Heart Rate 1: 72 bpm Height: 5'3" SpO2: 97% Weight: 189 lbs 02/18/2018 Blood Pressure 1: 100/52 Code: 8480-6 BMI: 31.9 Code: 67832-2 Heart Rate 1: 92 bpm Height: 5'3" SpO2: 90% Temperature: 36.6 (C ) / 97.9 (F) Weight: 180 lbs 01/08/2018 Blood Pressure 1: 140/80 Code: 8480-6 BMI: 32.6 Code: 60526-7 Heart Rate 1: 82 bpm Height: 5'3" SpO2: 92% Weight: 184 lbs 09/09/2017 Blood Pressure 1: 118/62 Code: 8480-6 BMI: 32.4 Code: 72370-0 Heart Rate 1: 80 bpm Height: 5'3" SpO2: 94% Weight: 183 lbs 03/25/2017 Blood Pressure 1: 122/68 Code: 8480-6 BMI: 31.2 Code: 64399-5 Heart Rate 1: 91 bpm Height: 5'3" SpO2: 95% Weight: 176 lbs 12/16/2016 Blood Pressure 1: 148/82 Code: 8480-6 Heart Rate 1: 77 bpm Height: 5'3" SpO2: 96% 12/05/2016 Blood Pressure 1: 138/72 Code: 8480-6 Heart Rate 1: 84 bpm Height: 5'3" SpO2: 92% Weight: 10/22/2016 Blood Pressure 1: 136/78 Code: 8480-6 BMI: 30.1 Code: 43238-6 Heart Rate 1: 70 bpm Height: 5'3" SpO2: 95% Weight: 170 lbs 09/25/2016 Blood Pressure 1: 122/72 Code: 8480-6 BMI: 29.8 Code: 84424-2 Heart Rate 1: 67 bpm Height: 5'3" SpO2: 97% Weight: 168 lbs 05/29/2016 Blood Pressure 1: 112/70 Code: 8480-6 BMI: 27.8 Code: 32278-9 Heart Rate 1: 102 bpm Height: 5'3" SpO2: 98% Weight: 157 lbs 04/19/2016 Blood Pressure 1: 128/58 Code: 8480-6 BMI: 28.5 Code: 09459-5 Heart Rate 1: 85 bpm Height: 5'3" SpO2: 98% Waist Measure (cm): 81 cm Weight: 161 lbs 04/17/2016 Blood Pressure 1: 128/82 Code: 8480-6 BMI: 28.5 Code: 64633-7 Heart Rate 1: 85 bpm Height: 5'3" SpO2: 98% Weight: 161 lbs 10/12/2015 Blood Pressure 1: 124/68 Code: 8480-6 BMI: 28.2 Code: 41464-4 Heart Rate 1: 72 bpm Height: 5'3" SpO2: 98% Weight: 159 lbs 07/11/2015 Blood Pressure 1: 128/88 Code: 8480-6 BMI: 28.5 Code: 10538-6 Heart Rate 1: 73 bpm Height: 5'3" SpO2: 93% Weight: 161 lbs 05/16/2015 Blood Pressure 1: 120/82 Code: 8480-6 BMI: 28.3 Code: 20387-4 Heart Rate 1: 82 bpm Height: 5'3" SpO2: 93% Weight: 160 lbs 11/03/2014 Blood Pressure 1: 132/74 Code: 8480-6 BMI: 27.6 Code: 08471-0 Heart Rate 1: 80 bpm Height: 5'3" [...] Encounters Encounter Performer Loca tion Codes Date ([id number]) [id number] EST. P ATIENT, LEVEL IV Diagnosis: Essential (primary) hypertension[ICD10: I10] Diagnosis: Low back pain[ICD10: M54.5] Diagnosis: Pain in right hip[ICD10: M25.551] Diagnosis: Actinic keratosis[ICD10: L57.0] Tamara Jones MD, [facility] CPT-4: 60586 10/21/2018 ([id number]) 80110 EST. P ATIENT, LEVEL III Diagnosis: Cough[ICD10: R05] Diagnosis: Acute bronchitis, unspecified[ICD10: J20.9] Elina Jones MD, [facility] CPT-4: 14425 09/08/2018 ([id number]) 24126 EST. P ATIENT, LEVEL IV Diagnosis: Essential (primary) hypertension[ICD10: I10] Diagnosis: Pain in right hip[ICD10: M25.551] Diagnosis: Low back pain[ICD10: M54.5] Tamara Jones MD, [facility] CPT-4: 81719 06/18/2018 ([id number]) 96890 EST. P ATIENT, LEVEL III Diagnosis: Acute bronchitis due to other specified organisms[ICD10: J20.8] Diagnosis: Cough[ICD10: R05] Tamara Jones MD, [facility] CPT-4: 53327 02/18/2018 ([id number]) 25947 EST. P ATIENT, LEVEL IV Diagnosis: Essential (primary) hypertension[ICD10: I10] Diagnosis: Low back pain[ICD10: M54.5] Diagnosis: Spinal stenosis, lumbosacral region[ICD10: M48.07] Diagnosis: Mixed hyperlipidemia[ICD10: E78.2] Tamara Jones MD, [facility] CPT- 4: 71304 01/08/2018 ([id number]) 66908 EST. P ATIENT, LEVEL IV Diagnosis: Essential (primary) hypertension[ICD10: I10] Diagnosis: Low back pain[ICD10: M54.5] Diagnosis: Spinal stenosis, lumbosacral region[ICD10: M48.07] Tamara Jones MD, [facility] CPT-4: 62562 09/09/2017 ([id number]) 27151 EST. P ATIENT, LEVEL IV Diagnosis: Essential (primary) hypertension[ICD10: I10] Diagnosis: Mixed hyperlipidemia[ICD10: E78.2] Diagnosis: Low back pain[ICD10: M54.5] Diagnosis: Pain in right hip[ICD10: M25.551] Diagnosis: Pain in left hip[ICD10: M25.552] Tamara Jones MD, [facility] CPT-4: 22171 03/25/2017 ([id number]) 88817 EST. P ATIENT, LEVEL III Diagnosis: Low back pain[ICD10: M54.5] Diagnosis: Sciatica, left side[ICD10: M54.32] Elina Jones MD, [facility] CPT-4: 97392 12/16/2016 [id number] EST. PATIENT, LEVEL III Diagnosis: Sacroiliitis, not elsewhere classified[ICD10: M46.1] Diagnosis: Sciatica, left side[ICD10: M54.32] Diagnosis: Pain in left hip[ICD10: M25.552] Evelyn Jones MD, [facility] CPT-4: 25242 12/05/2016 ([id number]) 60203 EST. P ATIENT, LEVEL IV Diagnosis: Encounter for screening mammogram for malignant neoplasm of breast[ICD10: Z12.31] Diagnosis: Essential (primary) hypertension[ICD10: I10] Diagnosis: Mixed hyperlipidemia[ICD10: E78.2] Diagnosis: Major depressive disorder, recurrent, mild[ICD10: F33.0] Tamara Jones MD, [facility] CPT-4: 61479 09/25/2016 ([id number]) [id number] EST. P ATIENT, LEVEL IV Diagnosis: Essential (primary) hypertension[ICD10: I10] Diagnosis: Mixed hyperlipidemia[ICD10: E78.2] Diagnosis: Major depressive disorder, recurrent, moderate[ICD10: F33.1] Tamara Jones MD, [facility] CPT-4: 81263 05/29/2016 ([id number]) 42063 EST. P ATIENT, LEVEL IV Diagnosis: Essential (primary) hypertension[ICD10: I10] Diagnosis: Mixed hyperlipidemia[ICD10: E78.2] Diagnosis: Pain in right hip[ICD10: M25.551] Diagnosis: Major depressive disorder, recurrent, mild[ICD10: F33.0] Tamara Jones MD, [facility] CPT-4: 23524 04/17/2016 ([id number]) 50806 EST. P ATIENT, LEVEL IV Diagnosis: Essential (primary) hypertension[ICD10: I10] Diagnosis: Low back pain[ICD10: M54.5] Diagnosis: Mixed hyperlipidemia[ICD10: E78.2] Tamara Jones MD, [facility] CPT- 4: 79530 10/12/2015 ([id number]) [id number] EST. P ATIENT, LEVEL III Diagnosis: Essential (primary) hypertension[ICD10: I10] Diagnosis: Mixed hyperlipidemia[ICD10: E78.2] Diagnosis: Vitamin B12 deficiency anemia, unspecified[ICD10: D51.9] Elina Jones MD, [facility] CPT-4: 34230 07/11/2015 ([id number]) [id number] EST. P ATIENT, LEVEL IV Diagnosis: Essential (primary) hypertension[ICD10: I10] Diagnosis: Low back pain[ICD10: M54.5] Diagnosis: Sciatica, right side[ICD10: M54.31] [facility] CPT-4: 47562 05/16/2015 ([id number]) OFFICE MATT Mcdonald [facility] - LEVEL 4 Diagnosis: ESSENTIAL HYPERTENSION[ICD9: 401.9] Diagnosis: HYPERLIPIDEMIA[ICD9: 272.4] Diagnosis: [facility] NOS-UNSPEC[ICD9: 715.90] Diagnosis: Sacroiliitis[ICD9: 720.2] Tamara Jones MD, [facility] CPT-4: 69294 11/03/2014 Plan of Care Planned Activity Notes [...] her sister. 10/21/2018 Appointment: Tam[facility] Jones [facility] (15 min) Moderate 10/21/2018 Patient Education: Patient Medication Summary Completed 10/21/2018 Patient Education: Hypertension Completed 10/21/2018 Patient Education: Back Pain Completed 10/21/2018 Visit Plan: Bronchitis - acute case of bronchitis identified. Pt has been given antibiotics, breathing treatments as appropriate, and pt has been instructed to call if symptoms are not improved, or if symptoms acutely worsen. 09/08/2018 Appointment: El[facility] Rivera [facility]el[phone] (30 min) Complex 09/08/2018 Patient Education: Patient [...] [place]. 06/18/2018 Appointment: Tamara Jones WPtel: [phone] [phone] (15 min) Moderate 06/18/2018 Patient Education: Patient Medication Summary Completed 06/18/2018 Patient Education: Back Pain Completed 06/18/2018 Appointment: Tamara Jones WPtel: [facility] [place] (15 min) Moderate 06/15/2018 Appointment: Elina Rivera WPtel: [phone] [place] (15 min) Moderate 02/27/2018 Appointment: Elina Rivera WPtel: [phone] [phone] [place] (15 min) Moderate 02/23/2018 Visit Plan: Bronchitis - acute case of bronchitis identified. Pt has been given antibiotics, breathing treatments as appropriate, and pt has been instructed to call if symptoms are not improved, or if symptoms acutely worsen. 02/18/2018 Appointment: Tamara Jones WPtel: [phone] (15 min) Moderate 02/18/2018 Patient Education: Patient Medication Summary Completed 02/18/2018 Appointment: Tamara Jones WPtel: [phone] (15 min) Moderate 02/16/2018 Visit Plan: Hypertension [...] not improving. 01/08/2018 Appointment: Tam[facility] Jones [facility] ([facility] min) Moderate 01/08/2018 Patient Education: Patient [...] mag lab 09/09/2017 Appointment: Tamara Jones WPtel: [phone] (15 min) Moderate 09/09/2017 Patient Education: Patient Medication Summary Completed 09/09/2017 Care Plan: Referral Order SNOMED-CT : [id number] Pending 09/09/2017 Appointment: Elina Rivera WPtel: [phone] [facility] - Annual Wellness Visit 04/25/2017 Visit Plan: [...] treatment/anti-inflammatory prn. 03/25/2017 Appointment: Tamara Jones WPtel: [phone] (15 min) Moderate 03/25/2017 Patient Education: Patient Medication Summary Completed 03/25/2017 Patient Education: Obesity Completed 03/25/2017 Visit Plan: Low back pain-plan to i ncrease gabapentin-use hydrocodone for break through pain-discussed PT-patient to make appt with Dr gAuilera to discuss further treatment options 12/16/2016 Appointment: Elina Rivera WPtel: [phone] (15 min) Moderate 12/16/2016 Patient Education: [...] they worsen. 12/05/2016 Appointment: Evelyn Orosco WPtel: [phone] (30 min) Complex 12/05/2016 Patient Education: Patient Medication Summary Completed 12/05/2016 Visit Plan: Wound Instructions - Pt was instructed to keep the wound clean, wash with antibacterial soap, use triple antibiotic ointment, call if redness, pustular drainage, or any other acute concerns. 10/22/2016 Appointment: Elina Rivera WPtel: [phone] (15 min) Moderate 10/22/2016 Patient Education: [...] SSRI 09/25/2016 Appointment: [phone] (15 min) Moderate 09/25/2016 Patient Education: Patient Medication Summary Completed 09/25/2016 Patient Education: Obesity Completed 09/25/2016 Care Plan: SCREENINGMAMMOGRAPHYDIGITAL LOINC : 67234-3 Pending 09/25/2016 Visit Plan: Hypertension - well [...] as prescribed. 05/29/2016 Appointment: [facility] [address] [facility] (15 min) Moderate 05/29/2016 Patient Education: Patient [...] surrogate. 04/19/2016 Appointment: Elina Rivera WPtel: [phone] [phone] [facility] - Annual Wellness Visit 04/19/2016 Patient Education: [...] for SSRI 04/17/2016 App[facility]ment: [phone] (15 min) Moderate 04/17/2016 Patient Education: Patient [...] to medications. 10/12/2015 Appointment: [phone] (30 min) [facility] 10/12/2015 Patient Education: Patient Medication Summary [...] Complex 05/01/2015 Visit Plan: Hypertension - well clary donaldsoned - continue with current medications, continue with [...] they worsen. 11/03/2014 Appointment: Tamara Jones [facility]Ptel[facility] [place] ([place] New Patient 11/03/2014 Patient Education: [...] pressure readings at home. fasting labs to [facility] . Wound Instructions - Pt was [...]
--- OUTSIDE RECORDS SUMMARY | 2019-09-24 08:40 | XMS REPORT | CCD ---
Author Author Marjorie Jones Organization Tamara Jones MD, [facility] Address [address] [place] [address] Phone Care Team Providers Care Printing Film Stripper Name Role Phone PP Unavailable CCM Unavailable Summary Purpose Interface Exchange Insurance Providers Payer name Policy type / Coverage type Covered alliance party ID Effective Begin Date Effective End Date [place] [employer] Medicare Part B [id number] Unknown [facility] icare Part B [id number] Un known Family history Mother Diagnosis Age At Onset Diabetes mellitus Type 2 Unknown Father Diagnosis Age At Onset Depression Unknown Hyperlipidemia Unknown Hypertension Unknown Stroke Unknown Coronary Artery Disease Unknown Social History Social History Element Codes Description Effective Dates Marital status Unknown M arried Walter 11/03/2014 Number of children Unknown 0 11/03/2014 Employment Unknown Curre ntly unemployed 11/03/[address]: 3267955 Quit over 10 years ago 199911/03/2014 Alcohol [...] Date Stop Date Sta tus Fill Instructions Efudex 5 % topical c ream RxNorm: 269111 1 Application TOP BID apply from upper arm to wrist [id number], then change to other arm, then 10 days later do right leg then left leg 10/21/2018 11/19/2018 Active Ventolin HFA 90 mcg/ actuation aerosol inhaler RxNorm: 921602 2 Puff(s) INH Q4 PRN 09/08/2018 11/06/2018 Ac tive prednisone 20 mg tablet RxNorm: 441513 2 Tablet(s) PO daily 09/08/2018 09/12/2018 Inactive START TOMORROW / cefdinir 300 mg capsule RxNorm: 950006 1 Capsule(s) PO BID 09/08/2018 09/14/2018 Inactive START TOMORROW Zithromax Z-Feng 250 mg tablet RxNorm: 397442 1 Tablet(s) PO UD 09/08/2018 09/12/2018 Inactive START TODAY ceftriaxone 500 mg s olution for injection RxNorm: 3359307 Inj 09/08/2018 09/08/2018 Inactive Kenalog 40 mg/mL christoph pension for injection RxNorm: 3574432 Milliliter(s) Inj 09/08/2018 09/08/2018 In active gabapentin 100 mg ca psule RxNorm: 357518 TAKE 1 CAPSULE BY SCOTT TH ONCE DAILY IN THE MORNING 08/10/2018 No Stop Date Active lisinopril 10 mg-hyd rochlorothiazide 12.5 mg tablet RxNorm: 082285 TAKE 1 TABLET BY MOUTH ONCE DAILY 07/01/2018 No Stop Date Active hydrocodone 7.5 mg-a cetaminophen 325 mg tablet RxNorm: 164305 1 Tablet(s) PO TID 06/29/2018 07/28/2018 In active memantine 10 mg tablet RxNorm: 775073 1 Tablet(s) PO BID 06/18/2018 01/13/2019 Active Aricept 10 mg tablet RxNorm: 251131 1/2 tab daily x 2 weeks then increase to 1 Tablet(s) PO daily thereafter 06/18/2018 08/11/2019 Active escitalopram 10 mg t ablet RxNorm: 022825 TAKE ONE TABLET BY MO UTH ONCE DAILY IN THE EVENING 06/18/2018 No Stop Date Active gabapentin 100 mg ca psule RxNorm: 491483 TAKE 1 CAPSULE BY SCOTT TH ONCE DAILY IN THE MORNING 06/11/2018 08/09/2018 Inactive Lipitor 20 mg tablet RxNorm: 012865 TAKE ONE TABLET BY MOUTH THREE TIMES [facility] 05/06/2018 No Stop Date Active hydrocodone 7.5 mg-a cetaminophen 325 mg tablet RxNorm: 739189 1 Tablet(s) PO TID 04/30/2018 05/29/2018 In active hydrocodone 7.5 mg-a cetaminophen 325 mg tablet RxNorm: 135334 1 Tablet(s) PO TID 03/26/2018 04/24/2018 In active Ventolin HFA 90 mcg/ actuation aerosol inhaler RxNorm: 216970 2 INH TID x 1 week th en twice daily x 5 days then as needed. 02/18/2018 04/18/2018 Inactive plea se give pt a spacer cefdinir 300 mg capsule RxNorm: 203705 1 Capsule(s) PO BID 02/18/2018 02/24/2018 Inactive prednisone 20 mg tablet RxNorm: 223752 2 Tablet(s) PO daily 02/18/2018 02/22/2018 Inactive memantine 10 mg tablet RxNorm: 576298 1/2 tab nightly x1wk then 1/2tab bid x1w k then 1/2tab am and 1tab hs x1wk then 1 Tablet(s) PO BID 01/08/2018 06/17/2018 Inactive hydrocodone 7.5 mg-a cetaminophen 325 mg tablet RxNorm: 349269 1 Tablet(s) PO TID 01/08/2018 02/06/2018 In active gabapentin 100 mg ca psule RxNorm: 408151 TAKE 1 CAPSULE BY SCOTT ONCE DAILY IN THE MORNING 12/24/2017 06/10/2018 Inactive hydrocodone 7.5 mg-a cetaminophen 325 mg tablet RxNorm: 743294 1-2 Tablet(s) PO Q6 a s needed 12/01/2017 12/22/2017 Inactive diclofenac sodium 75 mg tablet,delayed release RxNorm: 664200 TAKE ONE TABLET BY [facility] TWICE DAILY 11/10/2017 No Stop Date Active hydrocodone 7.5 mg-a cetaminophen 325 mg tablet RxNorm: 908836 1-2 Tablet(s) PO Q6 a s needed 10/17/2017 11/07/2017 Inactive hydrocodone 7.5 mg-a cetaminophen 325 mg tablet RxNorm: 445480 1-2 Tablet(s) PO Q6 a s needed 09/01/2017 09/22/2017 Inactive hydrocodone 7.5 mg-a cetaminophen 325 mg tablet RxNorm: 546312 1-2 Tablet(s) PO Q6 a s needed 08/25/2017 08/31/2017 Inactive hydrocodone 7.5 mg-a cetaminophen 325 mg tablet RxNorm: 898191 1-2 Tablet(s) PO Q6 a s needed 07/14/2017 08/04/2017 Inactive lisinopril 10 mg-hyd rochlorothiazide 12.5 mg tablet RxNorm: 574402 Tablet(s) TAKE ONE TABLET BY MOUTH ONCE DAILY 07/14/2017 06/30/2018 Inactive gabapentin 100 mg ca psule RxNorm: 754934 1 Capsule(s) PO QAM 06/23/2017 12/19/2017 Inactive hydrocodone 7.5 mg-a cetaminophen 325 mg tablet RxNorm: 247155 1-2 Tablet(s) PO Q6 a s needed 05/20/2017 06/10/2017 Inactive Lipitor 20 mg tablet RxNorm: 279249 1 Tablet(s) PO TIW 05/13/2017 05/05/2018 Inactive escitalopram 10 mg t ablet RxNorm: 763290 1 Tablet(s) PO QPM 05/13/2017 05/07/2018 Inactive escitalopram 10 mg t ablet RxNorm: 954540 1 Tablet(s) PO QPM 04/16/2017 05/12/2017 Inactive lisinopril 10 mg-hyd rochlorothiazide 12.5 mg tablet RxNorm: 993223 TAKE ONE TABLET BY MOUTH ONCE DAILY 04/15/2017 07/13/2017 Inactive escitalopram 10 mg t ablet RxNorm: 251349 1 Tablet(s) PO QPM 04/09/2017 04/15/2017 Inactive hydrocodone 7.5 mg-a cetaminophen 325 mg tablet RxNorm: 239796 1-2 Tablet(s) PO Q6 a s needed 03/17/2017 04/07/2017 Inactive hydrocodone 7.5 mg-a cetaminophen 325 mg tablet RxNorm: 968699 1-2 Tablet(s) PO Q6 a s needed 12/27/2016 01/17/2017 Inactive gabapentin 100 mg ca psule RxNorm: 246812 1 Capsule(s) PO QAM 12/16/2016 06/13/2017 Inactive prednisone 20 mg tablet RxNorm: 673805 2 Tablet(s) PO daily 12/06/2016 12/05/2016 Inactive prednisone 20 mg tablet RxNorm: 574350 2 Tablet(s) PO daily 12/06/2016 12/15/2016 Inactive Kenalog 40 mg/mL christoph pension for injection RxNorm: 9724613 1 Milliliter(s) Inj 12/05/2016 12/05/2016 In active diclofenac sodium 75 mg tablet,delayed release RxNorm: 533718 1 Tablet(s) PO BID 10/30/2016 10/24/2017 In active hydrocodone 7.5 mg-a cetaminophen 325 mg tablet RxNorm: 649518 1-2 Tablet(s) PO Q6 a s needed 10/23/2016 11/13/2016 Inactive hydrocodone 7.5 mg-a cetaminophen 325 mg tablet RxNorm: 130054 1-2 Tablet(s) PO Q6 a s needed 08/16/2016 09/06/2016 Inactive lisinopril 10 mg-hyd rochlorothiazide 12.5 mg tablet RxNorm: 889492 TAKE ONE TABLET BY MOUTH ONCE DAILY 06/07/2016 04/14/2017 Inactive Lipitor 40 mg tablet RxNorm: 989100 1 Tablet(s) PO TIW 05/31/2016 05/01/2017 Inactive Lipitor 20 mg tablet RxNorm: 927051 1 Tablet(s) PO TIW 05/29/2016 05/30/2016 Inactive hydrocodone 7.5 mg-a cetaminophen 325 mg tablet RxNorm: 694408 1-2 Tablet(s) PO Q6 a s needed 05/23/2016 06/13/2016 Inactive escitalopram 10 mg t ablet RxNorm: 200640 1 Tablet(s) PO QPM st art at 1/2 pill nightly x 1wk then a full pill thereafter 04/17/2016 04/08/2017 Inactive hydrocodone 7.5 mg-a cetaminophen 325 mg tablet RxNorm: 372616 1-2 Tablet(s) PO Q6 a s needed 02/28/2016 03/20/2016 Inactive hydrocodone 7.5 mg-a cetaminophen 325 mg tablet RxNorm: 616205 1-2 Tablet(s) PO Q6 a s needed 12/04/2015 12/25/2015 Inactive diclofenac sodium 75 mg tablet,delayed release RxNorm: 996104 1 Tablet(s) PO BID 10/23/2015 10/16/2016 In active hydrocodone 7.5 mg-a cetaminophen 325 mg tablet RxNorm: 620523 1-2 Tablet(s) PO Q6 a s needed 09/12/2015 12/03/2015 Inactive promethazine 25 mg t ablet RxNorm: 639333 1 Tablet(s) PO Q6 as needed 08/30/2015 No Stop Date Active lisinopril 10 mg-hyd rochlorothiazide 12.5 mg tablet RxNorm: 359598 1 Tablet(s) PO daily 05/09/2015 05/02/2016 Inactive hydrocodone 7.5 mg-a cetaminophen 325 mg tablet RxNorm: 158684 1-2 Tablet(s) PO Q6 a s needed 04/17/2015 09/11/2015 Inactive lisinopril 10 mg-hyd rochlorothiazide 12.5 mg tablet RxNorm: 870542 1 Tablet(s) PO daily 01/31/2015 05/08/2015 Inactive hydrocodone 7.5 mg-a cetaminophen 325 mg tablet RxNorm: 663877 1-2 Tablet(s) PO Q6 a s needed 01/18/2015 04/16/2015 Inactive diclofenac sodium 75 mg tablet,delayed release RxNorm: 230280 1 Tablet(s) PO BID 01/18/2015 10/14/2015 In active Voltaren 1 % topical gel RxNorm: 934676 4 Gram(s) TOP QID chelsie ly to sacroiliac joint 11/03/2014 05/15/2015 In active lisinopril 10 mg-hyd rochlorothiazide 12.5 mg tablet RxNorm: 282380 1 Tablet(s) PO daily 11/03/2014 12/02/2014 Inactive B-12 Plus sublingual RxNorm: 56908 sublingual No Start Date Active amoxicillin 500 mg c apsule RxNorm: 373160 4 Capsule(s) PO as do ctor directed 1 hours before appt No Start Date Active gabapentin 300 mg ca psule RxNorm: 446713 1 Capsule(s) PO QHS No Start Date Active promethazine 25 mg t ablet RxNorm: 505187 1 Tablet(s) PO Q6 as needed No Start Date 08/29/2015 Inactive diclofenac sodium 75 mg tablet,delayed release RxNorm: 903538 1 Tablet(s) PO BID No Start Date 01/17/2015 Inactive hydrocodone 7.5 mg-a cetaminophen 325 mg tablet RxNorm: 019576 1-2 Tablet(s) PO Q6 a s needed No Start Date 01/17/2015 Inactive Crestor 5 mg tablet RxNorm: 644638 1 Tablet(s) PO 3 x week No Start Date 05/28/2016 Inactive Medication Administered Medication Codes Instruc tions Start Date Status ceftriaxone 500 mg solution for injection RxNorm: 8802255 09/08/2018 No longer A ctive Kenalog 40 mg/mL suspension for injection RxNorm: 6679652 Milliliter 09/08/2018 No longer Active Kenalog 40 mg/mL suspension for injection RxNorm: 1321852 1Milliliter 12/05/2016 N o longer Active Immunizations [...] Item Item Code Result Date Comp Metabolic Vpj234 NA 140 mEq/L 01/14/2018 Comp Metabolic Jar069 K 3.8 mEq/L 01/14/2018 Comp Metabolic Wha145 CL 101 mEq/L 01/14/2018 Comp Metabolic Gjn818 CO2 30.0 mEq/L 01/14/2018 Comp Metabolic Jie094 AN ION GAP 13 01/14/2018 Comp Metabolic Knq373 GL UCOSE 89 mg/dL 01/14/2018 Comp Metabolic Ats473 Cr eat 1.0 mg/dL 01/14/2018 Comp Metabolic Sez844 eG FR 63 ml/min/1.73m2 01/14 Comp Metabolic Hzx839 BUN 16 mg/dL 01/14/2018 Comp Metabolic Wxl380 B/ C Ratio 16.8 Ratio 01/14/2018 Comp Metabolic Brx777 CA LCIUM 9.2 mg/dL 01/14/2018 Comp Metabolic Iat485 AL K PHOS 88 U/L 01/14/2018 Comp Metabolic Ngk128 T(SGOT) 13 U/L 01/14/2018 Comp Metabolic Xau852 AL T(SGPT) 9 U/L 01/14/2018 Comp Metabolic Nmb227 BI LI T 0.5 mg/dL 01/14/2018 Comp Metabolic Coh430 AL BUMIN 4.0 g/dL 01/14/2018 Comp Metabolic Zok587 TP RO 6.5 g/dL 01/14/2018 Comp Metabolic Qqh445 GL OB 2.5 g/dL 01/14/2018 Comp Metabolic Sdd999 A/ G Ratio 1.6 Ratio 01/14/2018 Comp Metabolic Gaq144 Os mo 280 mOsmo 01/14/2018 Tsh Ord6 [...] 31.5 pg 01/14/2018 Cbc With Differential Ord2 [place]% 8.5 % 01/14/2018 Cbc With Differential Ord2 [...] 3.44 K/ul 01/14/2018 Cbc With Differential Ord2 [place] ABS# 0.9 K/ul 01/14/2018 Cbc With Differential [...] 31.0 pg 09/10/2017 Cbc With Differential Ord2 [place]% 9.2 % 09/10/2017 Cbc With Differential Ord2 [...] 1.82 K/ul 09/10/2017 Cbc With Differential Ord2 [place] ABS# 0.5 K/ul 09/10/2017 Cbc With Differential Ord2 Eos ABS# 0.1 K/ul 09/10/2017 Cbc With Differential Ord2 Baso ABS# 0.0 K/ul 09/10/2017 Tsh Ord6 TSH (3rd IS) 1.22 uIU/mL 09/10/2017 Comp Metabolic Bvt568 NA 140 mEq/L 09/10/2017 Comp Metabolic Isj495 K 4.2 mEq/L 09/10/2017 Comp Metabolic Uzj253 CL 107 mEq/L 09/10/2017 Comp Metabolic Ozn084 CO2 25.0 mEq/L 09/10/2017 Comp Metabolic Hrw330 AN ION GAP 12 09/10/2017 Comp Metabolic Uld225 GL UCOSE 84 mg/dL 09/10/2017 Comp Metabolic Wrm021 Cr eat 0.7 mg/dL 09/10/2017 Comp Metabolic Atp581 eG FR 85 ml/min/1.73m2 09/10 Comp Metabolic Bda100 BUN 11 mg/dL 09/10/2017 Comp Metabolic Lap424 B/ C Ratio 15.1 Ratio 09/10/2017 Comp Metabolic Wtl436 CA LCIUM 9.1 mg/dL 09/10/2017 Comp Metabolic Lkx031 AL K PHOS 61 U/L 09/10/2017 Comp Metabolic Cut212 T(SGOT) 38 U/L 09/10/2017 Comp Metabolic Pan143 AL T(SGPT) 24 U/L 09/10/2017 Comp Metabolic Feg391 BI LI T 0.5 mg/dL 09/10/2017 Comp Metabolic Qbt231 AL BUMIN 4.0 g/dL 09/10/2017 Comp Metabolic Hnk805 TP RO 6.6 g/dL 09/10/2017 Comp Metabolic Zyi536 GL OB 2.6 g/dL 09/10/2017 Comp Metabolic Mnb082 A/ G Ratio 1.6 Ratio 09/10/2017 Comp Metabolic Xxg871 Os mo 278 mOsmo 09/10/2017 Lipid Ord30 CHOL 148 mg/dL 09/10/2017 Lipid Ord30 HDL 41.0 mg/dl 09/10/2017 Lipid Ord30 TRIG 66 mg/dL 09/10/2017 Lipid Ord30 LDL 94 mg/dL 09/10/2017 Lipid Ord30 C/HDL 3.6 Ratio 09/10/2017 Tsh Ord6 hTSH II 1.57 uIU/mL 09/25/2016 Comp Metabolic Jcq574 NA 139 mEq/L 09/25/2016 Comp Metabolic Bdb333 K 4.5 mEq/L 09/25/2016 Comp Metabolic Ybc323 CL 102 mEq/L 09/25/2016 Comp Metabolic Cjo668 CO2 29.0 mEq/L 09/25/2016 Comp Metabolic Exo495 AN ION GAP 13 09/25/2016 Comp Metabolic Gwm791 GL UCOSE 84 mg/dL 09/25/2016 Comp Metabolic Yjw152 Cr eat 0.9 mg/dL 09/25/2016 Comp Metabolic Tzl816 eG FR 70 ml/min/1.73m2 09/25 Comp Metabolic Vzl564 BUN 21 mg/dL 09/25/2016 Comp Metabolic Xed467 B/ C Ratio 24.1 Ratio 09/25/2016 Comp Metabolic Odj874 CA LCIUM 9.2 mg/dL 09/25/2016 Comp Metabolic Qnc575 AL K PHOS 89 U/L 09/25/2016 Comp Metabolic Mjv090 T(SGOT) 19 U/L 09/25/2016 Comp Metabolic Zsp981 AL T(SGPT) 19 U/L 09/25/2016 Comp Metabolic Zim722 BI LI T 0.5 mg/dL 09/25/2016 Comp Metabolic Ivj144 AL BUMIN 4.1 g/dL 09/25/2016 Comp Metabolic Rog950 TP RO 6.5 g/dL 09/25/2016 Comp Metabolic Pkc004 GL OB 2.4 g/dL 09/25/2016 Comp Metabolic Yif009 A/ G Ratio 1.7 Ratio 09/25/2016 Comp Metabolic Bqo103 Os mo 280 mOsmo 09/25/2016 Cbc With [...] 32.2 pg 09/25/2016 Cbc With Differential Ord2 [place]% 7.7 % 09/25/2016 Cbc With Differential Ord2 [...] 2.84 K/ul 09/25/2016 Cbc With Differential Ord2 [place] ABS# 0.7 K/ul 09/25/2016 Cbc With Differential [...] Ord30 C/HDL 5.1 Ratio 04/19/2016 Comp Metabolic Qin298 NA 135 mEq/L 04/19/2016 Comp Metabolic Sxr803 K 4.2 mEq/L 04/19/2016 Comp Metabolic Jhi362 CL 97 mEq/L 04/19/2016 Comp Metabolic Lwp006 CO2 28.0 mEq/L 04/19/2016 Comp Metabolic Gan933 AN ION GAP 14 04/19/2016 Comp Metabolic Yph106 GL UCOSE 89 mg/dL 04/19/2016 Comp Metabolic Iga975 Cr eat 0.8 mg/dL 04/19/2016 Comp Metabolic Bmf899 eG FR 77 ml/min/1.73m2 04/19 Comp Metabolic Ubz366 BUN 17 mg/dL 04/19/2016 Comp Metabolic Tzn694 B/ C Ratio 21.3 Ratio 04/19/2016 Comp Metabolic Zca467 CA LCIUM 9.8 mg/dL 04/19/2016 Comp Metabolic Rwy856 AL K PHOS 89 U/L 04/19/2016 Comp Metabolic Vsl220 T(SGOT) 16 U/L 04/19/2016 Comp Metabolic Mje301 AL T(SGPT) 13 U/L 04/19/2016 Comp Metabolic Jcc387 BI LI T 0.4 mg/dL 04/19/2016 Comp Metabolic Mcc327 AL BUMIN 4.5 g/dL 04/19/2016 Comp Metabolic Pec227 TP RO 7.2 g/dL 04/19/2016 Comp Metabolic Jze092 GL OB 2.7 g/dL 04/19/2016 Comp Metabolic Nvc842 A/ G Ratio 1.7 Ratio 04/19/2016 Comp Metabolic Srz199 Os mo 271 mOsmo 04/19/2016 Tsh Ord6 [...] 30.9 pg 04/19/2016 Cbc With Differential Ord2 [place]% 6.4 % 04/19/2016 Cbc With Differential Ord2 [...] 3.43 K/ul 04/19/2016 Cbc With Differential Ord2 [place] ABS# 0.7 K/ul 04/19/2016 Cbc With Differential [...] 30.8 pg 07/11/2015 Cbc With Differential Ord2 [place]% 7.8 % 07/11/2015 Cbc With Differential Ord2 [...] 2.75 K/ul 07/11/2015 Cbc With Differential Ord2 [place] ABS# 0.6 K/ul 07/11/2015 Cbc With Differential Ord2 Eos ABS# 0.4 K/ul 07/11/2015 Cbc With Differential Ord2 Baso ABS# 0.1 K/ul 07/11/2015 Cbc With Differential Ord2 New Analyzer Notice Please note new ref ranges s tarting 05-24-2015 due to implemntation of new five part differential hematolgy analyzer. 07/11/2015 Comp Metabolic Dwg477 NA 137 mEq/L 07/11/2015 Comp Metabolic Dtb203 K 4.4 mEq/L 07/11/2015 Comp Metabolic Drd495 CL 100 mEq/L 07/11/2015 Comp Metabolic Kqt962 CO2 25.0 mEq/L 07/11/2015 Comp Metabolic Abf260 AN ION GAP 16 07/11/2015 Comp Metabolic Rbl471 GL UCOSE 75 mg/dL 07/11/2015 Comp Metabolic Jsc876 Cr eat 0.8 mg/dL 07/11/2015 Comp Metabolic Uua908 eG FR 76 ml/min/1.73m2 07/10 Comp Metabolic Rqt056 BUN 18 mg/dL 07/11/2015 Comp Metabolic Ret317 B/ C Ratio 22.2 Ratio 07/11/2015 Comp Metabolic Mbo453 CA LCIUM 9.5 mg/dL 07/11/2015 Comp Metabolic Smv331 AL K PHOS 92 U/L 07/11/2015 Comp Metabolic Biv646 T(SGOT) 16 U/L 07/11/2015 Comp Metabolic Ukh493 AL T(SGPT) 18 U/L 07/11/2015 Comp Metabolic Ymw378 BI LI T 0.6 mg/dL 07/11/2015 Comp Metabolic Cwm573 AL BUMIN 4.3 g/dL 07/11/2015 Comp Metabolic Reh123 TP RO 6.7 g/dL 07/11/2015 Comp Metabolic Wpn761 GL OB 2.4 g/dL 07/11/2015 Comp Metabolic Job434 A/ G Ratio 1.7 Ratio 07/11/2015 Comp Metabolic Yqd279 Os mo 274 mOsmo 07/11/2015 Lipid Ord30 CHOL 197 mg/dL 07/11/2015 Lipid Ord30 HDL 55.0 mg/dl 07/11/2015 Lipid Ord30 TRIG 126 mg/dL 07/11/2015 Lipid Ord30 LDL 117 mg/dL 07/11/2015 Lipid Ord30 C/HDL 3.6 Ratio 07/11/2015 B12 Bnc600 B12 >1500.00 pg/ml 07/11/2015 Review of Systems [...] 1994 Ears/Nose/Throat oral cavity/pharynx/larynx Overall: no masses 06/18/2018 [...] CPT-4: J0696 09/08/2018 DRAIN/INJECT JOINT/B URSA CPT-4: 22823 12/05/2016 TRIAMCINOLONE ACET I [place] NOS CPT-4: J3301 12/05/2016 DESTRUCT PREMALG LESION CPT-4: 31760 10/22/2016 PPPS, SUBSEQ VISIT CPT- 4: G0439 04/19/2016 Vital Signs Date Vital 10/21/2018 Blood Pressure 1: 112/60 Code: 8480-6 BMI: 33.7 Code: 68616-9 Heart Rate 1: 65 bpm Height: 5'3" SpO2: 96% Weight: 190 lbs 09/08/2018 Blood Pressure 1: 136/78 Code: 8480-6 BMI: 33.7 Code: 97170-9 Heart Rate 1: 53 bpm Height: 5'3" SpO2: 95% Temperature: 36.4 (C ) / 97.5 (F) Weight: 190 lbs 06/18/2018 Blood Pressure 1: 130/70 Code: 8480-6 BMI: 33.5 Code: 70005-0 Heart Rate 1: 72 bpm Height: 5'3" SpO2: 97% Weight: 189 lbs 02/18/2018 Blood Pressure 1: 100/52 Code: 8480-6 BMI: 31.9 Code: 94112-2 Heart Rate 1: 92 bpm Height: 5'3" SpO2: 90% Temperature: 36.6 (C ) / 97.9 (F) Weight: 180 lbs 01/08/2018 Blood Pressure 1: 140/80 Code: 8480-6 BMI: 32.6 Code: 28762-4 Heart Rate 1: 82 bpm Height: 5'3" SpO2: 92% Weight: 184 lbs 09/09/2017 Blood Pressure 1: 118/62 Code: 8480-6 BMI: 32.4 Code: 89279-5 Heart Rate 1: 80 bpm Height: 5'3" SpO2: 94% Weight: 183 lbs 03/25/2017 Blood Pressure 1: 122/68 Code: 8480-6 BMI: 31.2 Code: 25448-3 Heart Rate 1: 91 bpm Height: 5'3" SpO2: 95% Weight: 176 lbs 12/16/2016 Blood Pressure 1: 148/82 Code: 8480-6 Heart Rate 1: 77 bpm Height: 5'3" SpO2: 96% 12/05/2016 Blood Pressure 1: 138/72 Code: 8480-6 Heart Rate 1: 84 bpm Height: 5'3" SpO2: 92% Weight: 10/22/2016 Blood Pressure 1: 136/78 Code: 8480-6 BMI: 30.1 Code: 92755-7 Heart Rate 1: 70 bpm Height: 5'3" SpO2: 95% Weight: 170 lbs 09/25/2016 Blood Pressure 1: 122/72 Code: 8480-6 BMI: 29.8 Code: 17562-1 Heart Rate 1: 67 bpm Height: 5'3" SpO2: 97% Weight: 168 lbs 05/29/2016 Blood Pressure 1: 112/70 Code: 8480-6 BMI: 27.8 Code: 88796-0 Heart Rate 1: 102 bpm Height: 5'3" SpO2: 98% Weight: 157 lbs 04/19/2016 Blood Pressure 1: 128/58 Code: 8480-6 BMI: 28.5 Code: 62837-1 Heart Rate 1: 85 bpm Height: 5'3" SpO2: 98% Waist Measure (cm): 81 cm Weight: 161 lbs 04/17/2016 Blood Pressure 1: 128/82 Code: 8480-6 BMI: 28.5 Code: 28364-2 Heart Rate 1: 85 bpm Height: 5'3" SpO2: 98% Weight: 161 lbs 10/12/2015 Blood Pressure 1: 124/68 Code: 8480-6 BMI: 28.2 Code: 18670-7 Heart Rate 1: 72 bpm Height: 5'3" SpO2: 98% Weight: 159 lbs 07/11/2015 Blood Pressure 1: 128/88 Code: 8480-6 BMI: 28.5 Code: 80334-8 Heart Rate 1: 73 bpm Height: 5'3" SpO2: 93% Weight: 161 lbs 05/16/2015 Blood Pressure 1: 120/82 Code: 8480-6 BMI: 28.3 Code: 27379-9 Heart Rate 1: 82 bpm Height: 5'3" SpO2: 93% Weight: 160 lbs 11/03/2014 Blood Pressure 1: 132/74 Code: 8480-6 BMI: 27.6 Code: 90551-2 Heart Rate 1: 80 bpm Height: 5'3" [...] Factors diet 01/08/2018 None hypertension Quality esthela castañeda hypertension 09/09/2017 None hypertension Quality sta ble [...] Findings weakness 09/09/2017 None hypertension Quality esthela castañeda hypertension 03/25/2017 None hypertension Quality sta ble [...] Encounters Encounter Performer Loca tion Codes Date ([id number]) [id number] EST. P ATIENT, LEVEL IV Diagnosis: Essential (primary) hypertension[ICD10: I10] Diagnosis: Low back pain[ICD10: M54.5] Diagnosis: Pain in right hip[ICD10: M25.551] Diagnosis: Actinic keratosis[ICD10: L57.0] [facility] CPT-4: 96161 10/21/2018 ([id number]) 43980 EST. P ATIENT, LEVEL III Diagnosis: Cough[ICD10: R05] Diagnosis: Acute bronchitis, unspecified[ICD10: J20.9] [facility] CPT-4: 67580 09/08/2018 ([id number]) 38245 EST. P ATIENT, LEVEL IV Diagnosis: Essential (primary) hypertension[ICD10: I10] Diagnosis: Pain in right hip[ICD10: M25.551] Diagnosis: Low back pain[ICD10: M54.5] [facility] CPT-4: 42494 06/18/2018 ([id number]) 66450 EST. P ATIENT, LEVEL III Diagnosis: Acute bronchitis due to other specified organisms[ICD10: J20.8] Diagnosis: Cough[ICD10: R05] [facility] CPT-4: 30527 02/18/2018 ([id number]) 37792 EST. P ATIENT, LEVEL IV Diagnosis: Essential (primary) hypertension[ICD10: I10] Diagnosis: Low back pain[ICD10: M54.5] Diagnosis: Spinal stenosis, lumbosacral region[ICD10: M48.07] Diagnosis: Mixed hyperlipidemia[ICD10: E78.2] Tamara Jones MD, [facility] CPT- 4: 40294 01/08/2018 ([id number]) 75642 EST. P ATIENT, LEVEL IV Diagnosis: Essential (primary) hypertension[ICD10: I10] Diagnosis: Low back pain[ICD10: M54.5] Diagnosis: Spinal stenosis, lumbosacral region[ICD10: M48.07] Tamara Jones MD, [facility] CPT-4: 06945 09/09/2017 ([id number]) 22117 EST. P ATIENT, LEVEL IV Diagnosis: Essential (primary) hypertension[ICD10: I10] Diagnosis: Mixed hyperlipidemia[ICD10: E78.2] Diagnosis: Low back pain[ICD10: M54.5] Diagnosis: Pain in right hip[ICD10: M25.551] Diagnosis: Pain in left hip[ICD10: M25.552] Tamara Jones MD, [facility] CPT-4: 77648 03/25/2017 ([id number]) 42071 EST. P ATIENT, LEVEL III Diagnosis: Low back pain[ICD10: M54.5] Diagnosis: Sciatica, left side[ICD10: M54.32] Elina Jones MD, [facility] CPT-4: 21319 12/16/2016 [id number] EST. PATIENT, LEVEL III Diagnosis: Sacroiliitis, not elsewhere classified[ICD10: M46.1] Diagnosis: Sciatica, left side[ICD10: M54.32] Diagnosis: Pain in left hip[ICD10: M25.552] Evelyn Jones MD, [facility] CPT-4: 80742 12/05/2016 ([id number]) 74744 EST. P ATIENT, LEVEL IV Diagnosis: Encounter for screening mammogram for malignant neoplasm of breast[ICD10: Z12.31] Diagnosis: Essential (primary) hypertension[ICD10: I10] Diagnosis: Mixed hyperlipidemia[ICD10: E78.2] Diagnosis: Major depressive disorder, recurrent, mild[ICD10: F33.0] [facility] CPT-4: 14270 09/25/2016 ([id number]) 55925 EST. P ATIENT, LEVEL IV Diagnosis: Essential (primary) hypertension[ICD10: I10] Diagnosis: Mixed hyperlipidemia[ICD10: E78.2] Diagnosis: Major depressive disorder, recurrent, moderate[ICD10: F33.1] Tamara Jones MD, [facility] CPT-4: 99417 05/29/2016 ([id number]) [id number] EST. P ATIENT, LEVEL IV Diagnosis: Essential (primary) hypertension[ICD10: I10] Diagnosis: Mixed hyperlipidemia[ICD10: E78.2] Diagnosis: Pain in right hip[ICD10: M25.551] Diagnosis: Major depressive disorder, recurrent, mild[ICD10: F33.0] Tamara Jones MD, [facility] CPT-4: 07890 04/17/2016 ([id number]) [id number] EST. P ATIENT, LEVEL IV Diagnosis: Essential (primary) hypertension[ICD10: I10] Diagnosis: Low back pain[ICD10: M54.5] Diagnosis: Mixed hyperlipidemia[ICD10: E78.2] Tamara Jones MD, [facility] CPT- 4: 82629 10/12/2015 ([id number]) [id number] EST. P ATIENT, LEVEL III Diagnosis: Essential (primary) hypertension[ICD10: I10] Diagnosis: Mixed hyperlipidemia[ICD10: E78.2] Diagnosis: Vitamin B12 deficiency anemia, unspecified[ICD10: D51.9] Elina Jones MD, [facility] CPT-4: 95317 07/11/2015 ([id number]) [id number] EST. P ATIENT, LEVEL IV Diagnosis: Essential (primary) hypertension[ICD10: I10] Diagnosis: Low back pain[ICD10: M54.5] Diagnosis: Sciatica, right side[ICD10: M54.31] Elina Jones MD, [facility] CPT-4: 42544 05/16/2015 ([id number]) [facility] , [facility] - LEVEL 4 Diagnosis: ESSENTIAL HYPERTENSION[ICD9: 401.9] Diagnosis: HYPERLIPIDEMIA[ICD9: 272.4] Diagnosis: OSTEOARTH NOS-UNSPEC[ICD9: 715.90] Diagnosis: Sacroiliitis[ICD9: 720.2] Tamara Jones MD, [facility] CPT-4: 33679 11/03/2014 Plan of Care Planned Activity Notes [...] given to patient and her sister. 10/21/2018 Patient Education: Patient Medication Summary Completed 10/21/2018 Patient Education: Hypertension Completed 10/21/2018 Patient Education: Back Pain Completed 10/21/2018 Visit Plan: Bronchitis - acute case of bronchitis identified. Pt has been given antibiotics, breathing treatments as appropriate, and pt has been instructed to call if symptoms are not improved, or if symptoms acutely worsen. 09/08/2018 Appointment: Elina Rivera WPtel: [phone] [phone] (30 min) Complex 09/08/2018 Patient Education: Patient [...] [place]. 06/18/2018 Appointment: Tamara Jones WPtel: [phone] [phone] [place] (15 min) Moderate 06/18/2018 Patient Education: Patient Medication Summary Completed 06/18/2018 Patient Education: Back Pain Completed 06/18/2018 Appointment: [phone] [place] [place] (15 min) Moderate 06/15/2018 Appointment: Elina Rivera WPtel: [phone] [phone] [place] (15 min) Moderate 02/27/2018 Appointment: Elina Rivera WPtel: [phone] [phone] [place] (15 min) Moderate 02/23/2018 Visit Plan: Bronchitis - acute case of bronchitis identified. Pt has been given antibiotics, breathing treatments as appropriate, and pt has been instructed to call if symptoms are not improved, or if symptoms acutely worsen. 02/18/2018 Appointment: Tamara Jones WPtel: [phone] [place] (15 min) Moderate 02/18/2018 Patient Education: Patient Medication Summary Completed 02/18/2018 Appointment: Tamara Jones WPtel: [phone] [place] (15 min) Moderate 02/16/2018 Visit Plan: [...] not improving. 01/08/2018 Appointment: Tamara Jones WPtel: [phone] [phone] [place] (15 min) Moderate 01/08/2018 Patient Education: Patient [...] mag lab 09/09/2017 Appointment: Tamara Jones WPtel: [phone] [phone] (15 min) Moderate 09/09/2017 Patient Education: Patient Medication Summary Completed 09/09/2017 Care Plan: Referral Order SNOMED-CT : [id number] Pending 09/09/2017 Appointment: Elina Rivera WPtel: [phone] [phone] [facility] - Annual Wellness Visit 04/25/2017 Visit Plan: [...] treatment/anti-inflammatory prn. 03/25/2017 Appointment: Tamara Jones WPtel: [phone] [place] (15 min) Moderate 03/25/2017 Patient Education: Patient Medication Summary Completed 03/25/2017 Patient Education: Obesity Completed 03/25/2017 Visit Plan: Low back pain-plan to i ncrease gabapentin-use hydrocodone for break through pain-discussed PT-patient to make appt with Dr Aguilera to discuss further treatment options 12/16/2016 Appointment: Elina Rivera WPtel: [phone] (15 min) Moderate 12/16/2016 Patient Education: [...] they worsen. 12/05/2016 Appointment: Evelyn Orosco WPtel: [facility] (30 min) Complex 12/05/2016 Patient Education: Patient Medication Summary Completed 12/05/2016 Visit Plan: Wound Instructions - Pt was instructed to keep the wound clean, wash with antibacterial soap, use triple antibiotic ointment, call if redness, pustular drainage, or any other acute concerns. 10/22/2016 Appointment: Elina Rivera WPtel: [phone] (15 min) Moderate 10/22/2016 Patient Education: [...] SSRI 09/25/2016 Appointment: Tamara Jones WPtel: [phone] [facility] (15 min) Moderate 09/25/2016 Patient Education: Patient Medication Summary Completed 09/25/2016 Patient Education: Obesity Completed 09/25/2016 Care Plan: [facility] [id number] Pending 09/25/2016 Visit Plan: Hypertension - well [...] as prescribed. 05/29/2016 Appointment: Tamara Jones WPtel: [phone] [phone] (15 min) Moderate 05/29/2016 Patient Education: Patient [...] surrogate. 04/19/2016 Appointment: [phone] - Annual Wellness Visit 04/19/2016 Patient Education: [...] SSRI 04/17/2016 Appointment: [facility]el: [phone] [place] (15 min) Moderate 04/17/2016 Patient Education: Patient [...] normal liver response to medications. 10/12/2015 Appointment: KarenTamara [facility]Ptel: [phone] [place] (30 min) Complex 10/12/2015 Patient Education: Patient Medication Summary Completed [...] worsen. 11/03/2014 Appointment: [facility] Jones [facility]el: [phone] [place] [place] (S) New Patient 11/03/2014 Patient Education: [...] pressure readings at home. fasting labs to [facility] . Wound [...]
--- OUTSIDE RECORDS SUMMARY | 2019-09-24 08:41 | XMS REPORT | CCD ---
Author Author Marjorie Jones Organization Tamara Jones MD, [facility] Address [address] [place] [address] Phone Care Team Providers Care Breastfeeding Peer Counselor Name Role Phone PP Unavailable CCM Unavailable Summary Purpose Interface Exchange Insurance Providers Payer name Policy type / Coverage type Covered libertarian ID Effective Begin Date Effective End Date [place] [employer] Medicare Part B [id number] Unknown Unknown [facility] icare Part B [id number] Unknown Unk nown Family history Mother Diagnosis Age At Onset Diabetes mellitus Type 2 Unknown Father Diagnosis Age At Onset Depression Unknown Hyperlipidemia Unknown Hypertension Unknown Stroke Unknown Coronary Artery Disease Unknown Social History Social History Element Codes Description Effective Dates Marital status Unknown M arried Walter 11/03/2014 Number of children Unknown 0 11/03/2014 Employment Unknown Curre ntly unemployed 11/03/[address]: 1316041 Quit over 10 years ago 199911/03/2014 Alcohol history Unknown occasionally drinks alcohol 2 per month 11/03/2014 Allergies, Adverse Reactions, Alerts Allergies, Adverse Reactions, Alerts data not found Past Medical History Illness Codes Condition Status Onset Date Resolved Date Actinic keratosis ICD-9: 702.0 ICD-10: L57.0 Active 10/22/2016 Unknown Encounter for screen ing mammogram for malignant neoplasm of breast ICD-9: V76.12 ICD-10: Z12.31 Active 09/25/2016 Unknown Essential (primary) hypertension ICD-9: 401.1 ICD-10: I10 Active 09/25/2016 Unknown Major depressive dis order, recurrent, mild ICD-9: 296.31 ICD-10: F33.0 Active 04/17/2016 Unknown Mixed hyperlipidemia ICD-9: 272.2 ICD-10: E78.2 Active 09/25/2016 Unknown Essential (primary) hypertension ICD-9: 401.9 ICD-10: I10 Active 11/02/2014 Unknown Major depressive dis order, recurrent, moderate ICD-9: 296.32 ICD-10: F33.1 Active 05/29/2016 Unknown Mixed hyperlipidemia ICD-9: 272.4 ICD-10: E78.2 Active 11/02/2014 Unknown Encounter for genera l adult medical examination with abnormal findings ICD-9: V70.0 ICD-10: Z00.01 Active 04/18/2016 Unknown Pain in right hip ICD-9: 719.45 ICD-10: M25.551 Active 04/16/2016 Unknown Low back pain ICD-9: 724.2 ICD-10: M54.5 Active 10/11/2015 Unknown Vitamin B12 deficien cy anemia, unspecified [...] e Dates Condition Status Actinic keratosis ICD-9: 702.0 ICD-10: L57.0 10/22/2016 Active Encounter for screen ing mammogram for malignant neoplasm of breast ICD-9: V76.12 ICD-10: Z12.31 09/25/2016 Active Essential (primary) hypertension ICD-9: 401.1 ICD-10: I10 09/25/2016 Active Major depressive dis order, recurrent, mild ICD-9: 296.31 ICD-10: F33.0 04/17/2016 Active Mixed hyperlipidemia ICD-9: 272.2 ICD-10: E78.2 09/25/2016 Active Essential (primary) hypertension ICD-9: 401.9 ICD-10: I10 11/02/2014 Active Major depressive dis order, recurrent, moderate ICD-9: 296.32 ICD-10: F33.1 05/29/2016 Active Mixed hyperlipidemia ICD-9: 272.4 ICD-10: E78.2 11/02/2014 Active Encounter for genera l adult medical examination with abnormal findings ICD-9: V70.0 ICD-10: Z00.01 04/18/2016 Active Pain in right hip ICD-9: 719.45 ICD-10: M25.551 04/16/2016 Active Low back pain ICD-9: 724.2 ICD-10: M54.5 10/11/2015 Active Vitamin B12 deficien cy anemia, unspecified [...] diclofenac sodium 75 mg tablet,delayed release RxNorm: 176372 1 Tablet(s) PO BID 10/30/2016 10/24/2017 Ac tive hydrocodone 7.5 mg-a cetaminophen 325 mg tablet RxNorm: 671439 1-2 Tablet(s) PO Q6 a s needed 10/23/2016 11/13/2016 Active hydrocodone 7.5 mg-a cetaminophen 325 mg tablet RxNorm: 032841 1-2 Tablet(s) PO Q6 a s needed 08/16/2016 09/06/2016 Inactive lisinopril 10 mg-hyd rochlorothiazide 12.5 mg tablet RxNorm: 582969 TAKE ONE TABLET BY MOUTH ONCE DAILY 06/07/2016 06/01/2017 Active Lipitor 40 mg tablet RxNorm: 074951 1 Tablet(s) PO TIW 05/31/2016 05/01/2017 Active Lipitor 20 mg tablet RxNorm: 109278 1 Tablet(s) PO TIW 05/29/2016 05/30/2016 Inactive hydrocodone 7.5 mg-a cetaminophen 325 mg tablet RxNorm: 319930 1-2 Tablet(s) PO Q6 a s needed 05/23/2016 06/13/2016 Inactive escitalopram 10 mg t ablet RxNorm: 269661 1 Tablet(s) PO QPM st art at 1/2 pill nightly x 1wk then a full pill thereafter 04/17/2016 04/11/2017 Active hydrocodone 7.5 mg-a cetaminophen 325 mg tablet RxNorm: 009597 1-2 Tablet(s) PO Q6 a s needed 02/28/2016 03/20/2016 Inactive hydrocodone 7.5 mg-a cetaminophen 325 mg tablet RxNorm: 275759 1-2 Tablet(s) PO Q6 a s needed 12/04/2015 12/25/2015 Inactive diclofenac sodium 75 mg tablet,delayed release RxNorm: 350152 1 Tablet(s) PO BID 10/23/2015 10/16/2016 In active hydrocodone 7.5 mg-a cetaminophen 325 mg tablet RxNorm: 106010 1-2 Tablet(s) PO Q6 a s needed 09/12/2015 12/03/2015 Inactive promethazine 25 mg t ablet RxNorm: 470535 1 Tablet(s) PO Q6 as needed 08/30/2015 No Stop Date Active lisinopril 10 mg-hyd rochlorothiazide 12.5 mg tablet RxNorm: 827085 1 Tablet(s) PO daily 05/09/2015 05/02/2016 Inactive hydrocodone 7.5 mg-a cetaminophen 325 mg tablet RxNorm: 717727 1-2 Tablet(s) PO Q6 a s needed 04/17/2015 09/11/2015 Inactive lisinopril 10 mg-hyd rochlorothiazide 12.5 mg tablet RxNorm: 015551 1 Tablet(s) PO daily 01/31/2015 05/08/2015 Inactive hydrocodone 7.5 mg-a cetaminophen 325 mg tablet RxNorm: 365440 1-2 Tablet(s) PO Q6 a s needed 01/18/2015 04/16/2015 Inactive diclofenac sodium 75 mg tablet,delayed release RxNorm: 633880 1 Tablet(s) PO BID 01/18/2015 10/14/2015 In active Voltaren 1 % topical gel RxNorm: 954630 4 Gram(s) TOP QID chelsie ly to sacroiliac joint 11/03/2014 05/15/2015 In active lisinopril 10 mg-hyd rochlorothiazide 12.5 mg tablet RxNorm: 105261 1 Tablet(s) PO daily 11/03/2014 12/02/2014 Inactive B-12 Plus sublingual RxNorm: 08639 sublingual No Start Date Active amoxicillin 500 mg c apsule RxNorm: 349189 4 Capsule(s) PO as do ctor directed 1 hours before appt No Start Date Active gabapentin 300 mg ca psule RxNorm: 495352 1 Capsule(s) PO QHS No Start Date Active promethazine 25 mg t ablet RxNorm: 884013 1 Tablet(s) PO Q6 as needed No Start Date 08/29/2015 Inactive diclofenac sodium 75 mg tablet,delayed release RxNorm: 648480 1 Tablet(s) PO BID No Start Date 01/17/2015 Inactive hydrocodone 7.5 mg-a cetaminophen 325 mg tablet RxNorm: 670752 1-2 Tablet(s) PO Q6 a s needed No Start Date 01/17/2015 Inactive Crestor 5 mg tablet RxNorm: 484709 1 Tablet(s) PO 3 x week No Start Date 05/28/2016 Inactive Medication Administered No Medication Administered data Immunizations No Immunization data Assessments Condition Codes Effectiv e Dates Actinic keratosis ICD-10: L57.0 ICD-9: 702.0 10/22/2016 Encounter for screening mammogram for ma lignant neoplasm of breast ICD-10: Z12.31 ICD-9: V76.12 09/25/2016 Essential (primary) hypertension ICD -10: I10 ICD-9: 401.1 09/25/2016 Major depressive disorder, recurrent, mild ICD-10: F33.0 ICD-9: 296.31 09/25/2016 Mixed hyperlipidemia ICD-10: E78.2 ICD-9: 272.2 09/25/2016 Mixed hyperlipidemia ICD-10: E78.2 ICD-9: 272.4 05/29/2016 Essential (primary) hypertension ICD -10: I10 ICD-9: 401.9 05/29/2016 Major depressive disorder, recurrent, moderate ICD-10: F33.1 ICD-9: 296.32 05/29/2016 Encounter for general adult medical exam ination with abnormal findings ICD-10: Z00.01 ICD-9: V70.0 04/19/2016 Pain in right hip ICD-10: M25.551 ICD-9: 719.45 04/17/2016 Low back pain ICD-10: M54.5 ICD-9: 724.2 10/12/2015 Vitamin B12 deficiency anemia, unspecified ICD-10: D51.9 ICD-9: 281.1 07/11/2015 Sciatica, right side ICD-10: M54.31 ICD-9: 724.3 05/16/2015 ESSENTIAL HYPERTENSION ICD-9: 401.9 11/03/2014 Sacroiliitis ICD-9: 720.2 11/03/2014 HYPERLIPIDEMIA ICD-9: 272.4 11/03/2014 OSTEOARTH NOS-UNSPEC ICD-9: 715.90 11/03/2014 Reason For Visit Reason For Visit Effective Dates Notes skin lesion 10/22/2016 hypertension 09/25/2016 hypertension 05/29/2016 Annual Medicare Wellness Exam 04/19/2016 hypertension 04/17/2016 back pain 10/12/2015 back pain 07/11/2015 back pain 05/16/2015 hypertension 11/03/2014 Results Observation Observation Code Item Item Code Result Date Comp Metabolic Tcl988 NA 139 mEq/L 09/25/2016 Comp Metabolic Vob696 K 4.5 mEq/L 09/25/2016 Comp Metabolic Ykv536 CL 102 mEq/L 09/25/2016 Comp Metabolic Drp485 CO2 29.0 mEq/L 09/25/2016 Comp Metabolic Mjb108 AN ION GAP 13 09/25/2016 Comp Metabolic Kmt163 GL UCOSE 84 mg/dL 09/25/2016 Comp Metabolic Dsl758 Cr eat 0.9 mg/dL 09/25/2016 Comp Metabolic Tgt739 eG FR 70 ml/min/1.73m2 09/25 Comp Metabolic Ruj417 BUN 21 mg/dL 09/25/2016 Comp Metabolic Gul851 B/ C Ratio 24.1 Ratio 09/25/2016 Comp Metabolic Dps095 CA LCIUM 9.2 mg/dL 09/25/2016 Comp Metabolic Mtj750 AL K PHOS 89 U/L 09/25/2016 Comp Metabolic Ujl848 T(SGOT) 19 U/L 09/25/2016 Comp Metabolic Xiw759 AL T(SGPT) 19 U/L 09/25/2016 Comp Metabolic Slc176 BI LI T 0.5 mg/dL 09/25/2016 Comp Metabolic Ecs020 AL BUMIN 4.1 g/dL 09/25/2016 Comp Metabolic Pib130 TP RO 6.5 g/dL 09/25/2016 Comp Metabolic Wjo666 GL OB 2.4 g/dL 09/25/2016 Comp Metabolic Uou921 A/ G Ratio 1.7 Ratio 09/25/2016 Comp Metabolic Eks882 Os mo 280 mOsmo 09/25/2016 Lipid Ord30 CHOL 185 mg/dL 09/25/2016 Lipid Ord30 HDL 54.0 mg/dl 09/25/2016 Lipid Ord30 TRIG 94 mg/dL 09/25/2016 Lipid Ord30 LDL 112 mg/dL 09/25/2016 Lipid Ord30 C/HDL 3.4 Ratio 09/25/2016 Cbc With Differential Ord2 WBC 9.34 K/ul 09/25/2016 Cbc With Differential Ord2 RBC 4.44 M/ul 09/25/2016 Cbc With Differential Ord2 HGB 14.3 g/dl 09/25/2016 Cbc With Differential Ord2 Neut% 58.4 % 09/25/2016 Cbc With Differential Ord2 HCT 42.0 % 09/25/2016 Cbc With Differential Ord2 MCV 94.6 fl 09/25/2016 Cbc With Differential Ord2 Lymph% 30.4 % 09/25/2016 Cbc With Differential Ord2 MCH 32.2 pg 09/25/2016 Cbc With Differential Ord2 [place]% 7.7 % 09/25/2016 Cbc With Differential Ord2 [...] 2.84 K/ul 09/25/2016 Cbc With Differential Ord2 [place] ABS# 0.7 K/ul 09/25/2016 Cbc With Differential Ord2 Eos ABS# 0.3 K/ul 09/25/2016 Cbc With Differential Ord2 Baso ABS# 0.0 K/ul 09/25/2016 Tsh Ord6 hTSH II 1.57 uIU/mL 09/25/2016 Tsh Ord6 hTSH II 1.41 uIU/mL 04/19/2016 Cbc With Differential Ord2 WBC 11.02 K/ul 04/19/2016 Cbc With Differential Ord2 RBC 4.86 M/ul 04/19/2016 Cbc With Differential Ord2 HGB 15.0 g/dl 04/19/2016 Cbc With Differential Ord2 Neut% 60.2 % 04/19/2016 Cbc With Differential Ord2 HCT 44.3 % 04/19/2016 Cbc With Differential Ord2 Lymph% 31.1 % 04/19/2016 Cbc With Differential Ord2 MCV 91.2 fl 04/19/2016 Cbc With Differential Ord2 [place]% 6.4 % 04/19/2016 Cbc With Differential Ord2 MCH 30.9 pg 04/19/2016 Cbc With Differential Ord2 MCHC 33.9 pg 04/19/2016 Cbc With Differential Ord2 Eos% 2.1 % 04/19/2016 Cbc With Differential Ord2 PLT 302 K/ul 04/19/2016 Cbc With Differential Ord2 Baso% 0.2 % 04/19/2016 Cbc With Differential Ord2 RDW 13.3 % 04/19/2016 Cbc With Differential Ord2 Neut ABS# 6.64 K/ul 04/19/2016 Cbc With Differential Ord2 Lymph ABS# 3.43 K/ul 04/19/2016 Cbc With Differential Ord2 [place] ABS# 0.7 K/ul 04/19/2016 Cbc With Differential Ord2 Eos ABS# 0.2 K/ul 04/19/2016 Cbc With Differential Ord2 Baso ABS# 0.0 K/ul 04/19/2016 Comp Metabolic Kks288 NA 135 mEq/L 04/19/2016 Comp Metabolic Stu208 K 4.2 mEq/L 04/19/2016 Comp Metabolic Emi630 CL 97 mEq/L 04/19/2016 Comp Metabolic Phr316 CO2 28.0 mEq/L 04/19/2016 Comp Metabolic Vdp091 AN ION GAP 14 04/19/2016 Comp Metabolic Vha110 GL UCOSE 89 mg/dL 04/19/2016 Comp Metabolic Gts337 Cr eat 0.8 mg/dL 04/19/2016 Comp Metabolic Tkx225 eG FR 77 ml/min/1.73m2 04/19 Comp Metabolic Qii948 BUN 17 mg/dL 04/19/2016 Comp Metabolic Ryx650 B/ C Ratio 21.3 Ratio 04/19/2016 Comp Metabolic Tpw761 CA LCIUM 9.8 mg/dL 04/19/2016 Comp Metabolic Lfb961 AL K PHOS 89 U/L 04/19/2016 Comp Metabolic Apa136 T(SGOT) 16 U/L 04/19/2016 Comp Metabolic Aat677 AL T(SGPT) 13 U/L 04/19/2016 Comp Metabolic Njv167 BI LI T 0.4 mg/dL 04/19/2016 Comp Metabolic Qri540 AL BUMIN 4.5 g/dL 04/19/2016 Comp Metabolic Jxz739 TP RO 7.2 g/dL 04/19/2016 Comp Metabolic Bxy004 GL OB 2.7 g/dL 04/19/2016 Comp Metabolic Xfg606 A/ G Ratio 1.7 Ratio 04/19/2016 Comp Metabolic Lxw363 Os mo 271 mOsmo 04/19/2016 Lipid Ord30 CHOL 283 mg/dL 04/19/2016 Lipid Ord30 HDL 56.0 mg/dl 04/19/2016 Lipid Ord30 TRIG 115 mg/dL 04/19/2016 Lipid Ord30 LDL 204 mg/dL 04/19/2016 Lipid Ord30 C/HDL 5.1 Ratio 04/19/2016 B12 Ose087 B12 >1500.00 pg/ml 07/11/2015 Lipid Ord30 CHOL 197 mg/dL 07/11/2015 Lipid Ord30 HDL 55.0 mg/dl 07/11/2015 Lipid Ord30 TRIG 126 mg/dL 07/11/2015 Lipid Ord30 LDL 117 mg/dL 07/11/2015 Lipid Ord30 C/HDL 3.6 Ratio 07/11/2015 Comp Metabolic Cry375 NA 137 mEq/L 07/11/2015 Comp Metabolic Qit118 K 4.4 mEq/L 07/11/2015 Comp Metabolic Qjx842 CL 100 mEq/L 07/11/2015 Comp Metabolic Sjy116 CO2 25.0 mEq/L 07/11/2015 Comp Metabolic Eqr424 AN ION GAP 16 07/11/2015 Comp Metabolic Jfj612 GL UCOSE 75 mg/dL 07/11/2015 Comp Metabolic Ngq461 Cr eat 0.8 mg/dL 07/11/2015 Comp Metabolic Gmo069 eG FR 76 ml/min/1.73m2 07/10 Comp Metabolic Onv440 BUN 18 mg/dL 07/11/2015 Comp Metabolic Blx469 B/ C Ratio 22.2 Ratio 07/11/2015 Comp Metabolic Ioj274 CA LCIUM 9.5 mg/dL 07/11/2015 Comp Metabolic Hxz927 AL K PHOS 92 U/L 07/11/2015 Comp Metabolic Uwv758 T(SGOT) 16 U/L 07/11/2015 Comp Metabolic Aye099 AL T(SGPT) 18 U/L 07/11/2015 Comp Metabolic Fcq334 BI LI T 0.6 mg/dL 07/11/2015 Comp Metabolic Ler458 AL BUMIN 4.3 g/dL 07/11/2015 Comp Metabolic Fim333 TP RO 6.7 g/dL 07/11/2015 Comp Metabolic Ujv353 GL OB 2.4 g/dL 07/11/2015 Comp Metabolic Uwb419 A/ G Ratio 1.7 Ratio 07/11/2015 Comp Metabolic Oty628 Os mo 274 mOsmo 07/11/2015 Cbc With Differential Ord2 WBC 7.43 [...] 30.8 pg 07/11/2015 Cbc With Differential Ord2 [place]% 7.8 % 07/11/2015 Cbc With Differential Ord2 MCHC 33.5 pg 07/11/2015 Cbc With Differential Ord2 Eos% 5.0 % 07/11/2015 Cbc With Differential Ord2 Baso% 0.7 % 07/11/2015 Cbc With Differential Ord2 PLT 304 K/ul 07/11/2015 Cbc With Differential Ord2 Neut ABS# 3.68 K/ul 07/11/2015 Cbc With Differential Ord2 RDW 13.2 % 07/11/2015 Cbc With Differential Ord2 Lymph ABS# 2.75 K/ul 07/11/2015 Cbc With Differential Ord2 [place] ABS# 0.6 K/ul 07/11/2015 Cbc With Differential Ord2 Eos ABS# 0.4 K/ul 07/11/2015 Cbc With Differential Ord2 Baso ABS# 0.1 K/ul 07/11/2015 Cbc With Differential Ord2 New Analyzer Notice Please note new ref ranges s tarting 05-24-2015 due to implemntation of new five part differential hematolgy analyzer. 07/11/2015 Tsh Ord6 hTSH II 1.91 uIU/mL 07/11/2015 Review of Systems System Result Effective Dates Constitutional No recent illness 10/22/2016 Constitutional No [...] Result Effective Dates Notes Full Exam - Dermatology Constitutional general appearance [...] affect 11/03/2014 None Procedures Procedure Codes Date DESTRUCT PREMALG LES ION CPT-4: [id number] 10/22/2016 PPPS, SUBSEQ VISIT CPT-4: [id number] 04/19/2016 Vital Signs Date Vital 10/22/2016 Blood Pressure 1: 136/78 Code: 8480-6 BMI: 30.1 Code: 85725-1 Heart Rate 1: 70 bpm Height: 5'3" SpO2: 95% Weight: 170 lbs 09/25/2016 Blood Pressure 1: 122/72 Code: 8480-6 BMI: 29.8 Code: 51677-2 Heart Rate 1: 67 bpm Height: 5'3" SpO2: 97% Weight: 168 lbs 05/29/2016 Blood Pressure 1: 112/70 Code: 8480-6 BMI: 27.8 Code: 49019-3 Heart Rate 1: 102 bpm Height: 5'3" SpO2: 98% Weight: 157 lbs 04/19/2016 Blood Pressure 1: 128/58 Code: 8480-6 BMI: 28.5 Code: 23612-6 Heart Rate 1: 85 bpm Height: 5'3" SpO2: 98% Waist Measure (cm): 81 cm Weight: 161 lbs 04/17/2016 Blood Pressure 1: 128/82 Code: 8480-6 BMI: 28.5 Code: 81439-2 Heart Rate 1: 85 bpm Height: 5'3" SpO2: 98% Weight: 161 lbs 10/12/2015 Blood Pressure 1: 124/68 Code: 8480-6 BMI: 28.2 Code: 45799-0 Heart Rate 1: 72 bpm Height: 5'3" SpO2: 98% Weight: 159 lbs 07/11/2015 Blood Pressure 1: 128/88 Code: 8480-6 BMI: 28.5 Code: 97166-9 Heart Rate 1: 73 bpm Height: 5'3" SpO2: 93% Weight: 161 lbs 05/16/2015 Blood Pressure 1: 120/82 Code: 8480-6 BMI: 28.3 Code: 97946-5 Heart Rate 1: 82 bpm Height: 5'3" SpO2: 93% Weight: 160 lbs 11/03/2014 Blood Pressure 1: 132/74 Code: 8480-6 BMI: 27.6 Code: 93665-1 Heart Rate 1: 80 bpm Height: 5'3" SpO2: 98% Weight: 156 lbs Functional Status No Functional Status data History of Present Illness Symptom Name Status Resu lt Effective Date Notes skin lesion Quality acute 10/22/2016 None skin [...] Encounters Encounter Performer Loca tion Codes Date ([id number]) 82209 EST. P ATIENT, LEVEL IV Diagnosis: Encounter for screening mammogram for malignant neoplasm of breast[ICD10: Z12.31] Diagnosis: Essential (primary) hypertension[ICD10: I10] Diagnosis: Mixed hyperlipidemia[ICD10: E78.2] Diagnosis: Major depressive disorder, recurrent, mild[ICD10: F33.0] Tamara Jones MD, [facility] CPT-4: 97410 09/25/2016 ([id number]) 74999 EST. P ATIENT, LEVEL IV Diagnosis: Essential (primary) hypertension[ICD10: I10] Diagnosis: Mixed hyperlipidemia[ICD10: E78.2] Diagnosis: Major depressive disorder, recurrent, moderate[ICD10: F33.1] Tamara Jones MD, [facility] CPT-4: 91861 05/29/2016 ([id number]) 07803 EST. P ATIENT, LEVEL IV Diagnosis: Essential (primary) hypertension[ICD10: I10] Diagnosis: Mixed hyperlipidemia[ICD10: E78.2] Diagnosis: Pain in right hip[ICD10: M25.551] Diagnosis: Major depressive disorder, recurrent, mild[ICD10: F33.0] Tamara Jones MD [facility] CPT-4: 42108 04/17/2016 ([id number]) 11042 EST. P ATIENT, LEVEL IV Diagnosis: Essential (primary) hypertension[ICD10: I10] Diagnosis: Low back pain[ICD10: M54.5] Diagnosis: Mixed hyperlipidemia[ICD10: E78.2] Tamara Jones MD, [facility] CPT- 4: 95730 10/12/2015 ([id number]) 18711 EST. P ATIENT, LEVEL III Diagnosis: Essential (primary) hypertension[ICD10: I10] Diagnosis: Mixed hyperlipidemia[ICD10: E78.2] Diagnosis: Vitamin B12 deficiency anemia, unspecified[ICD10: D51.9] Elina Jones MD, [facility] CPT-4: 22375 07/11/2015 ([id number]) 18193 EST. P ATIENT, LEVEL IV Diagnosis: Essential (primary) hypertension[ICD10: I10] Diagnosis: Low back pain[ICD10: M54.5] Diagnosis: Sciatica, right side[ICD10: M54.31] Elina Jones MD, [facility] CPT-4: 71283 05/16/2015 ([id number]) OFFICE [facility], [facility] - LEVEL 4 Diagnosis: ESSENTIAL HYPERTENSION[ICD9: 401.9] Diagnosis: HYPERLIPIDEMIA[ICD9: 272.4] Diagnosis: OSTEOARTH NOS-UNSPEC[ICD9: 715.90] Diagnosis: Sacroiliitis[ICD9: 720.2] Tamara Jones MD, [facility] CPT-4: 18126 11/03/2014 Plan of Care Planned Activity Notes C odes Status Date Visit Plan: Wound Instructions - Pt was instructed to keep the wound clean, wash with antibacterial soap, use triple antibiotic ointment, call if redness, pustular drainage, or any other acute concerns. 10/22/2016 Appointment: Elina Rivera WPtel: [phone] [phone] (15 min) Moderate 10/22/2016 Patient Education: Patient Medication Summary Completed 10/22/2016 Patient Education: Obesity Completed 10/22/2016 Visit Plan: Hypertension - well controll ed - continue with current medications, continue with no added salt diet. Pt has been encouraged to exercise daily.The pt has been advised to call the office if there are any acute concerns about change in blood pressure readings at home.Hyperlipidemia - pt has been counseled about appropriate [...] and to assure normal liver response to medications.Memory loss -improved continue with SSRI 09/25/2016 [facility] [phone] [facility] ([facility] min) Moderate 09/25/2016 Patient Education: Patient Medication Summary Completed 09/25/2016 Patient Education: Obesity Completed 09/25/2016 Care Plan: SCREENINGMAMMOGRAPHYDIGITAL LOINC : 42504-7 Pending 09/25/2016 Visit Plan: Hypertension - well controll ed - continue with current medications, continue with no added salt diet. Pt has been encouraged to exercise daily.The pt has been advised to call the office if there are any acute concerns about change in blood pressure readings at home.Hyperlipidemia - pt has been counseled about appropriate [...] and to assure normal liver response to medications.Memory loss - due to depression - continue with antidepressnat as prescribed. 05/29/2016 [facility]ment: [facility] [phone] [phone] (15 min) Moderate 05/29/2016 Patient Education: Patient Medication Summary Completed 05/29/2016 Patient Education: Obesity Completed 05/29/2016 Visit Plan: Medicare Exam - today we dis cussed the patients past history, immunizations, preventative exams/evaluations [...] risk and to maintain independece in the home.Today we discussed the need for the patient to create paperwork for Advanced directives as well as for the patient to provide this office with a copy of her DOPA paperwork for health care surrogate. 2015 [facility]: [facility] [phone] [phone] [facility] - Annual Wellness Visit 04/19/2016 Patient Education: Patient Medication Summary Completed 04/19/2016 Patient Education: Obesity Completed 04/19/2016 Visit Plan: Hypertension - well controll ed - continue with current medications, continue with no added salt diet. Pt has been encouraged to exercise daily.The pt has been advised to call the office if there are any acute concerns about change in blood pressure readings at home.Hyperlipidemia - pt has been counseled about appropriate [...] and to assure normal liver response to medications.Memory loss - likely due to depression - rx for SSRI 2015 App[facility]ment: [facility] [phone] [facility] (15 min) Moderate 04/17/2016 Patient Education: Patient Medication Summary Completed 04/17/2016 Patient Education: Obesity Completed 04/17/2016 Visit Plan: Hypertension - well controll ed - continue with current medications, continue with no added salt diet. Pt has been encouraged to exercise daily.The pt has been advised to call the office if there are any acute concerns about change in blood pressure readings at home.Low back pain - refilled hydrocodone.Hyperlipidemia - pt has been counseled about appropriate [...] medications. 10/12/2015 Appointment: [facility] [phone] [phone] (30 min) Complex 10/12/2015 Patient Education: Patient Medication Summary Completed 10/12/2015 Patient Education: Obesity Completed 10/12/2015 Patient Education: Hypertension Completed 10/12/2015 Visit Plan: Hypertension - well controll ed - continue with current medications, continue with no added salt diet. Pt has been encouraged to exercise daily.The pt has been advised to call the office if there are any acute concerns about change in blood pressure readings at home.Hyperlipidemia - pt has been counseled about appropriate [...] Completed 07/11/2015 Visit Plan: Hypertension - well controll ed - continue with current medications, continue with no added salt diet. Pt has been encouraged to exercise daily.The pt has been advised to call the office if there are any acute concerns about change in blood pressure readings at home.Low back pain with ride side sciatica- recommend xray low back-MRI if indicated for further [...] Complex 05/01/2015 Visit Plan: Hypertension - well controll ed - continue with current medications, continue with no added salt diet. Pt has been encouraged to exercise daily.The pt has been advised to call the office if there are any acute concerns about change in blood pressure readings at home.Hyperlipidemia - pt has been counseled about appropriate [...] and to assure normal liver response to medications.Sacroiliitis - back exercises discussed with the patient, pt to continue with anti-inflammatories. Pt is to call if the symptoms do not improve or if they worsen. 11/03/2014 Appointment: [facility] Jones [facility]el[facility] [phone] [facility] [place] [facility] New Patient 11/03/2014 Patient Education: Patient Medication Summary Completed 11/03/2014 Patient Education: Hypertension Completed 11/03/2014 Instructions Comment . Hypertension - wel l [...] not improve or if they worsen. . Wound Instructions - Pt was instructed [...] depression - continue with antidepressnat as prescribed. XRAY LUMBAR SPINE TH EN MRI MRI [...]
--- OUTSIDE RECORDS SUMMARY | 2019-09-24 08:42 | XMS REPORT | CCD ---
Author Author Marjorie Jones Organization Tamara Jones MD, [facility] Address [address] [place] [address] Phone Care Team Providers Care Sulfur Chloride Operator Name Role Phone PP Unavailable CCM Unavailable Summary Purpose Interface Exchange Insurance Providers Payer name Policy type / Coverage type Covered alliance party ID Effective Begin Date Effective End Date [employer] Medicare Part B [id number] Unknown Unknown [facility] icare Part B [id number] Unknown Unk nown Family history Mother Diagnosis [...] ntly unemployed 11/03/[address]: 7210148 Quit over 10 years ago 199911/03/2014 Alcohol [...] Date Stop Date Sta tus Fill Instructions hydrocodone 7.5 mg-a cetaminophen 325 mg tablet RxNorm: 833373 1-2 Tablet(s) PO Q6 a s needed 10/23/2016 11/13/2016 Active hydrocodone 7.5 mg-a cetaminophen 325 mg tablet RxNorm: 885833 1-2 Tablet(s) PO Q6 a s needed 08/16/2016 09/06/2016 Inactive lisinopril 10 mg-hyd rochlorothiazide 12.5 mg tablet RxNorm: 012225 TAKE ONE TABLET BY MOUTH ONCE DAILY 06/07/2016 06/01/2017 Active Lipitor 40 mg tablet RxNorm: 514121 1 Tablet(s) PO TIW 05/31/2016 05/01/2017 Active Lipitor 20 mg tablet RxNorm: 201776 1 Tablet(s) PO TIW 05/29/2016 05/30/2016 Inactive hydrocodone 7.5 mg-a cetaminophen 325 mg tablet RxNorm: 794946 1-2 Tablet(s) PO Q6 a s needed 05/23/2016 06/13/2016 Inactive escitalopram 10 mg t ablet RxNorm: 662570 1 Tablet(s) PO QPM st art at 1/2 pill nightly x 1wk then a full pill thereafter 04/17/2016 04/11/2017 Active hydrocodone 7.5 mg-a cetaminophen 325 mg tablet RxNorm: 565695 1-2 Tablet(s) PO Q6 a s needed 02/28/2016 03/20/2016 Inactive hydrocodone 7.5 mg-a cetaminophen 325 mg tablet RxNorm: 277955 1-2 Tablet(s) PO Q6 a s needed 12/04/2015 12/25/2015 Inactive diclofenac sodium 75 mg tablet,delayed release RxNorm: 347777 1 Tablet(s) PO BID 10/23/2015 10/16/2016 In active hydrocodone 7.5 mg-a cetaminophen 325 mg tablet RxNorm: 214548 1-2 Tablet(s) PO Q6 a s needed 09/12/2015 12/03/2015 Inactive promethazine 25 mg t ablet RxNorm: 339079 1 Tablet(s) PO Q6 as needed 08/30/2015 No Stop Date Active lisinopril 10 mg-hyd rochlorothiazide 12.5 mg tablet RxNorm: 872494 1 Tablet(s) PO daily 05/09/2015 05/02/2016 Inactive hydrocodone 7.5 mg-a cetaminophen 325 mg tablet RxNorm: 523458 1-2 Tablet(s) PO Q6 a s needed 04/17/2015 09/11/2015 Inactive lisinopril 10 mg-hyd rochlorothiazide 12.5 mg tablet RxNorm: 941725 1 Tablet(s) PO daily 01/31/2015 05/08/2015 Inactive hydrocodone 7.5 mg-a cetaminophen 325 mg tablet RxNorm: 967346 1-2 Tablet(s) PO Q6 a s needed 01/18/2015 04/16/2015 Inactive diclofenac sodium 75 mg tablet,delayed release RxNorm: 798675 1 Tablet(s) PO BID 01/18/2015 10/14/2015 In active Voltaren 1 % topical gel RxNorm: 619318 4 Gram(s) TOP QID chelsie ly to sacroiliac joint 11/03/2014 05/15/2015 In active lisinopril 10 mg-hyd rochlorothiazide 12.5 mg tablet RxNorm: 065018 1 Tablet(s) PO daily 11/03/2014 12/02/2014 Inactive B-12 Plus sublingual RxNorm: 47789 sublingual No Start Date Active amoxicillin 500 mg c apsule RxNorm: 777902 4 Capsule(s) PO as do ctor directed 1 hours before appt No Start Date Active gabapentin 300 mg ca psule RxNorm: 644690 1 Capsule(s) PO QHS No Start Date Active promethazine 25 mg t ablet RxNorm: 995490 1 Tablet(s) PO Q6 as needed No Start Date 08/29/2015 Inactive diclofenac sodium 75 mg tablet,delayed release RxNorm: 281832 1 Tablet(s) PO BID No Start Date 01/17/2015 Inactive hydrocodone 7.5 mg-a cetaminophen 325 mg tablet RxNorm: 718576 1-2 Tablet(s) PO Q6 a s needed No Start Date 01/17/2015 Inactive Crestor 5 mg tablet RxNorm: 816247 1 Tablet(s) PO 3 x week No [...] Observation Code Item Item Code Result Date Tsh Ord6 hTSH II 1.57 uIU/mL 09/25/2016 Comp Metabolic Bpv911 NA 139 mEq/L 09/25/2016 Comp Metabolic Svm233 K 4.5 mEq/L 09/25/2016 Comp Metabolic Mxk110 CL 102 mEq/L 09/25/2016 Comp Metabolic Lhk098 CO2 29.0 mEq/L 09/25/2016 Comp Metabolic Zid768 AN ION GAP 13 09/25/2016 Comp Metabolic Frc699 GL UCOSE 84 mg/dL 09/25/2016 Comp Metabolic Acg070 Cr eat 0.9 mg/dL 09/25/2016 Comp Metabolic Clf691 eG FR 70 ml/min/1.73m2 09/25 Comp Metabolic Ppq982 BUN 21 mg/dL 09/25/2016 Comp Metabolic Qeh178 B/ C Ratio 24.1 Ratio 09/25/2016 Comp Metabolic Gvu995 CA LCIUM 9.2 mg/dL 09/25/2016 Comp Metabolic Drz450 AL K PHOS 89 U/L 09/25/2016 Comp Metabolic Pcj745 T(SGOT) 19 U/L 09/25/2016 Comp Metabolic Txj573 AL T(SGPT) 19 U/L 09/25/2016 Comp Metabolic Tiz961 BI LI T 0.5 mg/dL 09/25/2016 Comp Metabolic Azn525 AL BUMIN 4.1 g/dL 09/25/2016 Comp Metabolic Cbj078 TP RO 6.5 g/dL 09/25/2016 Comp Metabolic Jtx058 GL OB 2.4 g/dL 09/25/2016 Comp Metabolic Muf679 A/ G Ratio 1.7 Ratio 09/25/2016 Comp Metabolic Hcq595 Os mo 280 mOsmo 09/25/2016 Cbc With [...] 30.4 % 09/25/2016 Cbc With Differential Ord2 Clarke% 7.7 % 09/25/2016 Cbc With Differential Ord2 MCH 32.2 pg 09/25/2016 Cbc With Differential Ord2 Eos% 3.2 % 09/25/2016 Cbc With Differential Ord2 MCHC 34.0 pg 09/25/2016 Cbc With Differential Ord2 Baso% 0.3 % 09/25/2016 Cbc With Differential Ord2 PLT 264 K/ul 09/25/2016 Cbc With Differential Ord2 Neut ABS# 5.45 K/ul 09/25/2016 Cbc With Differential Ord2 RDW 13.1 % 09/25/2016 Cbc With Differential Ord2 Lymph ABS# 2.84 K/ul 09/25/2016 Cbc With Differential Ord2 Clarke ABS# 0.7 K/ul 09/25/2016 Cbc With Differential [...] Ord30 C/HDL 5.1 Ratio 04/19/2016 Comp Metabolic Esl597 NA 135 mEq/L 04/19/2016 Comp Metabolic Mvi662 K 4.2 mEq/L 04/19/2016 Comp Metabolic Lpp644 CL 97 mEq/L 04/19/2016 Comp Metabolic Fhy455 CO2 28.0 mEq/L 04/19/2016 Comp Metabolic Hpw936 AN ION GAP 14 04/19/2016 Comp Metabolic Hqe036 GL UCOSE 89 mg/dL 04/19/2016 Comp Metabolic Kav991 Cr eat 0.8 mg/dL 04/19/2016 Comp Metabolic Omo825 eG FR 77 ml/min/1.73m2 04/19 Comp Metabolic Awt990 BUN 17 mg/dL 04/19/2016 Comp Metabolic Xzw168 B/ C Ratio 21.3 Ratio 04/19/2016 Comp Metabolic Pro117 CA LCIUM 9.8 mg/dL 04/19/2016 Comp Metabolic Hbi066 AL K PHOS 89 U/L 04/19/2016 Comp Metabolic Nwb210 T(SGOT) 16 U/L 04/19/2016 Comp Metabolic Eni701 AL T(SGPT) 13 U/L 04/19/2016 Comp Metabolic Xye982 BI LI T 0.4 mg/dL 04/19/2016 Comp Metabolic Jhh950 AL BUMIN 4.5 g/dL 04/19/2016 Comp Metabolic Fsn317 TP RO 7.2 g/dL 04/19/2016 Comp Metabolic Hng911 GL OB 2.7 g/dL 04/19/2016 Comp Metabolic Ije621 A/ G Ratio 1.7 Ratio 04/19/2016 Comp Metabolic Uyf726 Os mo 271 mOsmo 04/19/2016 Tsh Ord6 [...] 91.2 fl 04/19/2016 Cbc With Differential Ord2 MCH 30.9 pg 04/19/2016 Cbc With Differential Ord2 Clarke% 6.4 % 04/19/2016 Cbc With Differential Ord2 Eos% 2.1 % 04/19/2016 Cbc With Differential Ord2 MCHC 33.9 pg 04/19/2016 Cbc With Differential Ord2 Baso% 0.2 % 04/19/2016 Cbc With Differential Ord2 PLT 302 K/ul 04/19/2016 Cbc With Differential Ord2 Neut ABS# 6.64 K/ul 04/19/2016 Cbc With Differential Ord2 RDW 13.3 % 04/19/2016 Cbc With Differential Ord2 Lymph ABS# 3.43 K/ul 04/19/2016 Cbc With Differential Ord2 Clarke ABS# 0.7 K/ul 04/19/2016 Cbc With Differential [...] 49.5 % 07/11/2015 Cbc With Differential Ord2 Lymph% 37.0 % 07/11/2015 Cbc With Differential Ord2 MCV 92.1 fl 07/11/2015 Cbc With Differential Ord2 MCH 30.8 pg 07/11/2015 Cbc With Differential Ord2 Clarke% 7.8 % 07/11/2015 Cbc With Differential Ord2 [...] 2.75 K/ul 07/11/2015 Cbc With Differential Ord2 Clarke ABS# 0.6 K/ul 07/11/2015 Cbc With Differential Ord2 Eos ABS# 0.4 K/ul 07/11/2015 Cbc With Differential Ord2 Baso ABS# 0.1 K/ul 07/11/2015 Cbc With Differential Ord2 New Analyzer Notice Please note new ref ranges s tarting 05-24-2015 due to implemntation of new five part differential hematolgy analyzer. 07/11/2015 Comp Metabolic Gbw756 NA 137 mEq/L 07/11/2015 Comp Metabolic Utt514 K 4.4 mEq/L 07/11/2015 Comp Metabolic Yzr077 CL 100 mEq/L 07/11/2015 Comp Metabolic Qpx506 CO2 25.0 mEq/L 07/11/2015 Comp Metabolic Hiq840 AN ION GAP 16 07/11/2015 Comp Metabolic Myg691 GL UCOSE 75 mg/dL 07/11/2015 Comp Metabolic Tpk573 Cr eat 0.8 mg/dL 07/11/2015 Comp Metabolic Trn434 eG FR 76 ml/min/1.73m2 07/10 Comp Metabolic Gpi644 BUN 18 mg/dL 07/11/2015 Comp Metabolic Uql106 B/ C Ratio 22.2 Ratio 07/11/2015 Comp Metabolic Dfu241 CA LCIUM 9.5 mg/dL 07/11/2015 Comp Metabolic Aej229 AL K PHOS 92 U/L 07/11/2015 Comp Metabolic Eyg639 T(SGOT) 16 U/L 07/11/2015 Comp Metabolic Ifr636 AL T(SGPT) 18 U/L 07/11/2015 Comp Metabolic Zux726 BI LI T 0.6 mg/dL 07/11/2015 Comp Metabolic Mnt721 AL BUMIN 4.3 g/dL 07/11/2015 Comp Metabolic Xsx210 TP RO 6.7 g/dL 07/11/2015 Comp Metabolic Nhq803 GL OB 2.4 g/dL 07/11/2015 Comp Metabolic Gmd436 A/ G Ratio 1.7 Ratio 07/11/2015 Comp Metabolic Zfp439 Os mo 274 mOsmo 07/11/2015 Lipid Ord30 CHOL 197 mg/dL 07/11/2015 Lipid Ord30 HDL 55.0 mg/dl 07/11/2015 Lipid Ord30 TRIG 126 mg/dL 07/11/2015 Lipid Ord30 LDL 117 mg/dL 07/11/2015 Lipid Ord30 C/HDL 3.6 Ratio 07/11/2015 B12 Jlm074 B12 >1500.00 pg/ml 07/11/2015 Review of Systems [...] Codes Date DESTRUCT PREMALG LES ION CPT-4: 60196Etoofqk 10/22/2016 PPPS, SUBSEQ VISIT CPT-4: I2330Knhbjux 04/19/2016 Vital Signs Date Vital 10/22/2016 Blood Pressure 1: 136/78 Code: 8480-6 BMI: 30.1 Code: 43702-7 Heart Rate 1: 70 bpm Height: 5'3" SpO2: 95% Weight: 170 lbs 09/25/2016 Blood Pressure 1: 122/72 Code: 8480-6 BMI: 29.8 Code: 19734-9 Heart Rate 1: 67 bpm Height: 5'3" SpO2: 97% Weight: 168 lbs 05/29/2016 Blood Pressure 1: 112/70 Code: 8480-6 BMI: 27.8 Code: 36806-4 Heart Rate 1: 102 bpm Height: 5'3" SpO2: 98% Weight: 157 lbs 04/19/2016 Blood Pressure 1: 128/58 Code: 8480-6 BMI: 28.5 Code: 71450-7 Heart Rate 1: 85 bpm Height: 5'3" SpO2: 98% Waist Measure (cm): 81 cm Weight: 161 lbs 04/17/2016 Blood Pressure 1: 128/82 Code: 8480-6 BMI: 28.5 Code: 83848-1 Heart Rate 1: 85 bpm Height: 5'3" SpO2: 98% Weight: 161 lbs 10/12/2015 Blood Pressure 1: 124/68 Code: 8480-6 BMI: 28.2 Code: 84588-6 Heart Rate 1: 72 bpm Height: 5'3" SpO2: 98% Weight: 159 lbs 07/11/2015 Blood Pressure 1: 128/88 Code: 8480-6 BMI: 28.5 Code: 63043-8 Heart Rate 1: 73 bpm Height: 5'3" SpO2: 93% Weight: 161 lbs 05/16/2015 Blood Pressure 1: 120/82 Code: 8480-6 BMI: 28.3 Code: 72416-5 Heart Rate 1: 82 bpm Height: 5'3" SpO2: 93% Weight: 160 lbs 11/03/2014 Blood Pressure 1: 132/74 Code: 8480-6 BMI: 27.6 Code: 66197-7 Heart Rate 1: 80 bpm Height: 5'3" [...] Encounters Encounter Performer Loca tion Codes Date ([id number]) [id number] EST. P ATIENT, LEVEL IV Diagnosis: Encounter for screening mammogram for malignant neoplasm of breast[ICD10: Z12.31] Diagnosis: Essential (primary) hypertension[ICD10: I10] Diagnosis: Mixed hyperlipidemia[ICD10: E78.2] Diagnosis: Major depressive disorder, recurrent, mild[ICD10: F33.0] Tamara Jones MD, [facility] CPT-4: 06780 09/25/2016 ([id number]) 74866 EST. P ATIENT, LEVEL IV Diagnosis: Essential (primary) hypertension[ICD10: I10] Diagnosis: Mixed hyperlipidemia[ICD10: E78.2] Diagnosis: Major depressive disorder, recurrent, moderate[ICD10: F33.1] Tamara Jones MD, [facility] CPT-4: 16244 05/29/2016 ([id number]) [id number] EST. P ATIENT, LEVEL IV Diagnosis: Essential (primary) hypertension[ICD10: I10] Diagnosis: Mixed hyperlipidemia[ICD10: E78.2] Diagnosis: Pain in right hip[ICD10: M25.551] Diagnosis: Major depressive disorder, recurrent, mild[ICD10: F33.0] Tamara Jones MD, [facility] CPT-4: 25627 04/17/2016 ([id number]) 32169 EST. P ATIENT, LEVEL IV Diagnosis: Essential (primary) hypertension[ICD10: I10] Diagnosis: Low back pain[ICD10: M54.5] Diagnosis: Mixed hyperlipidemia[ICD10: E78.2] Tamara Jones MD, [facility] CPT- 4: 92517 10/12/2015 ([id number]) [id number] EST. P ATIENT, LEVEL III Diagnosis: Essential (primary) hypertension[ICD10: I10] Diagnosis: Mixed hyperlipidemia[ICD10: E78.2] Diagnosis: Vitamin B12 deficiency anemia, unspecified[ICD10: D51.9] Elina Jones MD, [facility] CPT-4: 66966 07/11/2015 ([id number]) 52734 EST. P ATIENT, LEVEL IV Diagnosis: Essential (primary) hypertension[ICD10: I10] Diagnosis: Low back pain[ICD10: M54.5] Diagnosis: Sciatica, right side[ICD10: M54.31] Elina Jones MD, [facility] CPT-4: 19642 05/16/2015 ([id number]) OFFICE VISI T, [facility] - LEVEL 4 Diagnosis: ESSENTIAL HYPERTENSION[ICD9: 401.9] Diagnosis: HYPERLIPIDEMIA[ICD9: 272.4] Diagnosis: OSTEOARTH NOS-UNSPEC[ICD9: 715.90] Diagnosis: Sacroiliitis[ICD9: 720.2] Tamara Jones MD, [facility] CPT-4: 52293 11/03/2014 Plan of Care Planned Activity Notes C odes Status Date Visit Plan: Wound Instructions - Pt was instructed to keep the wound clean, wash with antibacterial soap, use triple antibiotic ointment, call if redness, pustular drainage, or any other acute concerns. 10/22/2016 [facility] [phone] [phone] ([facility] min) Moderate 10/22/2016 Patient Education: Patient [...] SSRI 09/25/2016 [facility] [phone] [phone] ([facility] min) Moderate 09/25/2016 Patient Education: Patient Medication Summary Completed 09/25/2016 Patient Education: Obesity Completed 09/25/2016 [facility] Pending 09/25/2016 Visit Plan: Hypertension - well [...] prescribed. 05/29/2016 [facility]: [facility] [phone] [phone] (15 min) Moderate 05/29/2016 Patient Education: [...] care surrogate. 2015 [facility] [phone] [phone] [facility] [facility] - Annual Wellness Visit 04/19/2016 Patient Education: [...] for SSRI 2015 [facility]ment: [facility] [phone] [phone] (15 min) Moderate 04/17/2016 Patient Education: [...] to medications. 10/12/2015 Appointment: Tamara Jones WPtel: [address] [place], [place] [phone] (30 min) [facility] 10/12/2015 Patient Education: Patient Medication Summary [...] worsen. 11/03/2014 Appointment: [facility] [phone] [phone] [place] New Patient 11/03/2014 Patient [...]
--- OUTSIDE RECORDS SUMMARY | 2019-09-24 08:42 | XMS REPORT | CCD ---
Author Author Marjorie Jones Organization Tamara Jones MD, [facility] Address [address] [place] [address] Phone Care Team Providers Care Supervisor [employer] Name Role Phone PP Unavailable CCM Unavailable Summary Purpose Interface Exchange Insurance Providers Payer name Policy type / Coverage type Covered libertarian ID Effective Begin Date Effective End Date [employer] [employer] Medicare Part B [id number] Unknown Unknown [facility] icare Part B [id number] Unknown Unk nown Family history Mother Diagnosis [...] ntly unemployed 11/03/[address]: 3619616 Quit over 10 years ago 199911/03/2014 Alcohol [...] 7.5 mg-a cetaminophen 325 mg tablet RxNorm: 484083 1-2 Tablet(s) PO Q6 a s needed 10/23/2016 11/13/2016 Active hydrocodone 7.5 mg-a cetaminophen 325 mg tablet RxNorm: 004454 1-2 Tablet(s) PO Q6 a s needed 08/16/2016 09/06/2016 Inactive lisinopril 10 mg-hyd rochlorothiazide 12.5 mg tablet RxNorm: 504074 TAKE ONE TABLET BY MOUTH ONCE DAILY 06/07/2016 06/01/2017 Active Lipitor 40 mg tablet RxNorm: 659223 1 Tablet(s) PO TIW 05/31/2016 05/01/2017 Active Lipitor 20 mg tablet RxNorm: 785686 1 Tablet(s) PO TIW 05/29/2016 05/30/2016 Inactive hydrocodone 7.5 mg-a cetaminophen 325 mg tablet RxNorm: 398733 1-2 Tablet(s) PO Q6 a s needed 05/23/2016 06/13/2016 Inactive escitalopram 10 mg t ablet RxNorm: 402018 1 Tablet(s) PO QPM st art at 1/2 pill nightly x 1wk then a full pill thereafter 04/17/2016 04/11/2017 Active hydrocodone 7.5 mg-a cetaminophen 325 mg tablet RxNorm: 248999 1-2 Tablet(s) PO Q6 a s needed 02/28/2016 03/20/2016 Inactive hydrocodone 7.5 mg-a cetaminophen 325 mg tablet RxNorm: 091058 1-2 Tablet(s) PO Q6 a s needed 12/04/2015 12/25/2015 Inactive diclofenac sodium 75 mg tablet,delayed release RxNorm: 136945 1 Tablet(s) PO BID 10/23/2015 10/16/2016 In active hydrocodone 7.5 mg-a cetaminophen 325 mg tablet RxNorm: 763217 1-2 Tablet(s) PO Q6 a s needed 09/12/2015 12/03/2015 Inactive promethazine 25 mg t ablet RxNorm: 655500 1 Tablet(s) PO Q6 as needed 08/30/2015 No Stop Date Active lisinopril 10 mg-hyd rochlorothiazide 12.5 mg tablet RxNorm: 241818 1 Tablet(s) PO daily 05/09/2015 05/02/2016 Inactive hydrocodone 7.5 mg-a cetaminophen 325 mg tablet RxNorm: 500626 1-2 Tablet(s) PO Q6 a s needed 04/17/2015 09/11/2015 Inactive lisinopril 10 mg-hyd rochlorothiazide 12.5 mg tablet RxNorm: 380390 1 Tablet(s) PO daily 01/31/2015 05/08/2015 Inactive hydrocodone 7.5 mg-a cetaminophen 325 mg tablet RxNorm: 015029 1-2 Tablet(s) PO Q6 a s needed 01/18/2015 04/16/2015 Inactive diclofenac sodium 75 mg tablet,delayed release RxNorm: 652681 1 Tablet(s) PO BID 01/18/2015 10/14/2015 In active Voltaren 1 % topical gel RxNorm: 552869 4 Gram(s) TOP QID chelsie ly to sacroiliac joint 11/03/2014 05/15/2015 In active lisinopril 10 mg-hyd rochlorothiazide 12.5 mg tablet RxNorm: 317903 1 Tablet(s) PO daily 11/03/2014 12/02/2014 Inactive B-12 Plus sublingual RxNorm: 98645 sublingual No Start Date Active amoxicillin 500 mg c apsule RxNorm: 937440 4 Capsule(s) PO as do ctor directed 1 hours before appt No Start Date Active gabapentin 300 mg ca psule RxNorm: 614717 1 Capsule(s) PO QHS No Start Date Active promethazine 25 mg t ablet RxNorm: 841646 1 Tablet(s) PO Q6 as needed No Start Date 08/29/2015 Inactive diclofenac sodium 75 mg tablet,delayed release RxNorm: 963935 1 Tablet(s) PO BID No Start Date 01/17/2015 Inactive hydrocodone 7.5 mg-a cetaminophen 325 mg tablet RxNorm: 815244 1-2 Tablet(s) PO Q6 a s needed No Start Date 01/17/2015 Inactive Crestor 5 mg tablet RxNorm: 261241 1 Tablet(s) PO 3 x week No [...] hTSH II 1.57 uIU/mL 09/25/2016 Comp Metabolic Jhy344 NA 139 mEq/L 09/25/2016 Comp Metabolic Kku961 K 4.5 mEq/L 09/25/2016 Comp Metabolic Gns376 CL 102 mEq/L 09/25/2016 Comp Metabolic Enb548 CO2 29.0 mEq/L 09/25/2016 Comp Metabolic Kgt021 AN ION GAP 13 09/25/2016 Comp Metabolic Dxn451 GL UCOSE 84 mg/dL 09/25/2016 Comp Metabolic Aby592 Cr eat 0.9 mg/dL 09/25/2016 Comp Metabolic Rrz743 eG FR 70 ml/min/1.73m2 09/25 Comp Metabolic Ktq122 BUN 21 mg/dL 09/25/2016 Comp Metabolic Kwk184 B/ C Ratio 24.1 Ratio 09/25/2016 Comp Metabolic Hgu045 CA LCIUM 9.2 mg/dL 09/25/2016 Comp Metabolic Sqr977 AL K PHOS 89 U/L 09/25/2016 Comp Metabolic Zyb808 T(SGOT) 19 U/L 09/25/2016 Comp Metabolic Gai900 AL T(SGPT) 19 U/L 09/25/2016 Comp Metabolic Dhl688 BI LI T 0.5 mg/dL 09/25/2016 Comp Metabolic Kiv573 AL BUMIN 4.1 g/dL 09/25/2016 Comp Metabolic Pia882 TP RO 6.5 g/dL 09/25/2016 Comp Metabolic Qvy597 GL OB 2.4 g/dL 09/25/2016 Comp Metabolic Xlh220 A/ G Ratio 1.7 Ratio 09/25/2016 Comp Metabolic Gxf427 Os mo 280 mOsmo 09/25/2016 Cbc With [...] 32.2 pg 09/25/2016 Cbc With Differential Ord2 Angelina% 7.7 % 09/25/2016 Cbc With Differential Ord2 [...] 2.84 K/ul 09/25/2016 Cbc With Differential Ord2 Angelina ABS# 0.7 K/ul 09/25/2016 Cbc With Differential [...] Ord30 C/HDL 5.1 Ratio 04/19/2016 Comp Metabolic Xij253 NA 135 mEq/L 04/19/2016 Comp Metabolic Uje270 K 4.2 mEq/L 04/19/2016 Comp Metabolic Edl449 CL 97 mEq/L 04/19/2016 Comp Metabolic Aie079 CO2 28.0 mEq/L 04/19/2016 Comp Metabolic Pmo824 AN ION GAP 14 04/19/2016 Comp Metabolic Iye882 GL UCOSE 89 mg/dL 04/19/2016 Comp Metabolic Etq798 Cr eat 0.8 mg/dL 04/19/2016 Comp Metabolic Lxq986 eG FR 77 ml/min/1.73m2 04/19 Comp Metabolic Lwo270 BUN 17 mg/dL 04/19/2016 Comp Metabolic Cez066 B/ C Ratio 21.3 Ratio 04/19/2016 Comp Metabolic Mcp206 CA LCIUM 9.8 mg/dL 04/19/2016 Comp Metabolic Kii991 AL K PHOS 89 U/L 04/19/2016 Comp Metabolic Uyp803 T(SGOT) 16 U/L 04/19/2016 Comp Metabolic Jmg749 AL T(SGPT) 13 U/L 04/19/2016 Comp Metabolic Out249 BI LI T 0.4 mg/dL 04/19/2016 Comp Metabolic Yuk670 AL BUMIN 4.5 g/dL 04/19/2016 Comp Metabolic Vyc142 TP RO 7.2 g/dL 04/19/2016 Comp Metabolic Bjp168 GL OB 2.7 g/dL 04/19/2016 Comp Metabolic Bkd229 A/ G Ratio 1.7 Ratio 04/19/2016 Comp Metabolic Aft392 Os mo 271 mOsmo 04/19/2016 Tsh Ord6 [...] 91.2 fl 04/19/2016 Cbc With Differential Ord2 Angelina% 6.4 % 04/19/2016 Cbc With Differential Ord2 [...] 3.43 K/ul 04/19/2016 Cbc With Differential Ord2 Angelina ABS# 0.7 K/ul 04/19/2016 Cbc With Differential [...] 30.8 pg 07/11/2015 Cbc With Differential Ord2 Angelina% 7.8 % 07/11/2015 Cbc With Differential Ord2 [...] 2.75 K/ul 07/11/2015 Cbc With Differential Ord2 Angelina ABS# 0.6 K/ul 07/11/2015 Cbc With Differential Ord2 Eos ABS# 0.4 K/ul 07/11/2015 Cbc With Differential Ord2 Baso ABS# 0.1 K/ul 07/11/2015 Cbc With Differential Ord2 New Analyzer Notice Please note new ref ranges s tarting 05-24-2015 due to implemntation of new five part differential hematolgy analyzer. 07/11/2015 Comp Metabolic Stv517 NA 137 mEq/L 07/11/2015 Comp Metabolic Ggj286 K 4.4 mEq/L 07/11/2015 Comp Metabolic Slp372 CL 100 mEq/L 07/11/2015 Comp Metabolic Kri652 CO2 25.0 mEq/L 07/11/2015 Comp Metabolic Fqx007 AN ION GAP 16 07/11/2015 Comp Metabolic Dlf846 GL UCOSE 75 mg/dL 07/11/2015 Comp Metabolic Uev598 Cr eat 0.8 mg/dL 07/11/2015 Comp Metabolic Dbk564 eG FR 76 ml/min/1.73m2 07/10 Comp Metabolic Qqf052 BUN 18 mg/dL 07/11/2015 Comp Metabolic Isw415 B/ C Ratio 22.2 Ratio 07/11/2015 Comp Metabolic Iiq038 CA LCIUM 9.5 mg/dL 07/11/2015 Comp Metabolic Yqe796 AL K PHOS 92 U/L 07/11/2015 Comp Metabolic Eex427 T(SGOT) 16 U/L 07/11/2015 Comp Metabolic Pvj245 AL T(SGPT) 18 U/L 07/11/2015 Comp Metabolic Oov252 BI LI T 0.6 mg/dL 07/11/2015 Comp Metabolic Fpd104 AL BUMIN 4.3 g/dL 07/11/2015 Comp Metabolic Lam401 TP RO 6.7 g/dL 07/11/2015 Comp Metabolic Sjq489 GL OB 2.4 g/dL 07/11/2015 Comp Metabolic Oel809 A/ G Ratio 1.7 Ratio 07/11/2015 Comp Metabolic Hgv027 Os mo 274 mOsmo 07/11/2015 Lipid Ord30 CHOL 197 mg/dL 07/11/2015 Lipid Ord30 HDL 55.0 mg/dl 07/11/2015 Lipid Ord30 TRIG 126 mg/dL 07/11/2015 Lipid Ord30 LDL 117 mg/dL 07/11/2015 Lipid Ord30 C/HDL 3.6 Ratio 07/11/2015 B12 Cbw716 B12 >1500.00 pg/ml 07/11/2015 Review of Systems [...] Codes Date DESTRUCT PREMALG LES ION CPT-4: 16238Ssgqprp 10/22/2016 PPPS, SUBSEQ VISIT CPT-4: [id number] 04/19/2016 Vital Signs Date Vital 10/22/2016 Blood Pressure 1: 136/78 Code: 8480-6 BMI: 30.1 Code: 88051-9 Heart Rate 1: 70 bpm Height: 5'3" SpO2: 95% Weight: 170 lbs 09/25/2016 Blood Pressure 1: 122/72 Code: 8480-6 BMI: 29.8 Code: 53871-3 Heart Rate 1: 67 bpm Height: 5'3" SpO2: 97% Weight: 168 lbs 05/29/2016 Blood Pressure 1: 112/70 Code: 8480-6 BMI: 27.8 Code: 71259-0 Heart Rate 1: 102 bpm Height: 5'3" SpO2: 98% Weight: 157 lbs 04/19/2016 Blood Pressure 1: 128/58 Code: 8480-6 BMI: 28.5 Code: 02453-1 Heart Rate 1: 85 bpm Height: 5'3" SpO2: 98% Waist Measure (cm): 81 cm Weight: 161 lbs 04/17/2016 Blood Pressure 1: 128/82 Code: 8480-6 BMI: 28.5 Code: 19788-9 Heart Rate 1: 85 bpm Height: 5'3" SpO2: 98% Weight: 161 lbs 10/12/2015 Blood Pressure 1: 124/68 Code: 8480-6 BMI: 28.2 Code: 00758-8 Heart Rate 1: 72 bpm Height: 5'3" SpO2: 98% Weight: 159 lbs 07/11/2015 Blood Pressure 1: 128/88 Code: 8480-6 BMI: 28.5 Code: 55536-8 Heart Rate 1: 73 bpm Height: 5'3" SpO2: 93% Weight: 161 lbs 05/16/2015 Blood Pressure 1: 120/82 Code: 8480-6 BMI: 28.3 Code: 59325-9 Heart Rate 1: 82 bpm Height: 5'3" SpO2: 93% Weight: 160 lbs 11/03/2014 Blood Pressure 1: 132/74 Code: 8480-6 BMI: 27.6 Code: 66827-5 Heart Rate 1: 80 bpm Height: 5'3" [...] Encounters Encounter Performer Loca tion Codes Date ([id number]) [id number] EST. P ATIENT, LEVEL IV Diagnosis: Encounter for screening mammogram for malignant neoplasm of breast[ICD10: Z12.31] Diagnosis: Essential (primary) hypertension[ICD10: I10] Diagnosis: Mixed hyperlipidemia[ICD10: E78.2] Diagnosis: Major depressive disorder, recurrent, mild[ICD10: F33.0] Tamara Jones MD, [facility] CPT-4: 73231 09/25/2016 ([id number]) 30237 EST. P ATIENT, LEVEL IV Diagnosis: Essential (primary) hypertension[ICD10: I10] Diagnosis: Mixed hyperlipidemia[ICD10: E78.2] Diagnosis: Major depressive disorder, recurrent, moderate[ICD10: F33.1] Tamara Jones MD, [facility] CPT-4: 13467 05/29/2016 ([id number]) 75510 EST. P ATIENT, LEVEL IV Diagnosis: Essential (primary) hypertension[ICD10: I10] Diagnosis: Mixed hyperlipidemia[ICD10: E78.2] Diagnosis: Pain in right hip[ICD10: M25.551] Diagnosis: Major depressive disorder, recurrent, mild[ICD10: F33.0] Tamara Jones MD, [facility] CPT-4: 97803 04/17/2016 ([id number]) 96061 EST. P ATIENT, LEVEL IV Diagnosis: Essential (primary) hypertension[ICD10: I10] Diagnosis: Low back pain[ICD10: M54.5] Diagnosis: Mixed hyperlipidemia[ICD10: E78.2] Tamara Jones MD, [facility] CPT- 4: 50055 10/12/2015 ([id number]) 46066 EST. P ATIENT, LEVEL III Diagnosis: Essential (primary) hypertension[ICD10: I10] Diagnosis: Mixed hyperlipidemia[ICD10: E78.2] Diagnosis: Vitamin B12 deficiency anemia, unspecified[ICD10: D51.9] Elina Jones MD, [facility] CPT-4: 97452 07/11/2015 ([id number]) 10844 EST. P ATIENT, LEVEL IV Diagnosis: Essential (primary) hypertension[ICD10: I10] Diagnosis: Low back pain[ICD10: M54.5] Diagnosis: Sciatica, right side[ICD10: M54.31] Elina Jones MD, [facility] CPT-4: 55105 05/16/2015 ([id number]) OFFICE VISI T, [facility] - LEVEL 4 Diagnosis: ESSENTIAL HYPERTENSION[ICD9: 401.9] Diagnosis: HYPERLIPIDEMIA[ICD9: 272.4] Diagnosis: OSTEOARTH NOS-UNSPEC[ICD9: 715.90] Diagnosis: Sacroiliitis[ICD9: 720.2] Tamara Jones MD, [facility] CPT-4: 63008 11/03/2014 Plan of Care Planned Activity Notes C odes Status Date Visit Plan: Wound Instructions - Pt was instructed to keep the wound clean, wash with antibacterial soap, use triple antibiotic ointment, call if redness, pustular drainage, or any other acute concerns. 10/22/2016 App[facility]ment: [facility] [phone] [phone] (15 min) Moderate 10/22/2016 Patient Education: Patient [...] with SSRI 09/25/2016 [facility] [phone] [facility] (15 min) Moderate 09/25/2016 Patient Education: Patient Medication Summary Completed 09/25/2016 Patient Education: Obesity Completed 09/25/2016 Care Plan: [facility] 799[facility]5 Pending 09/25/2016 Visit Plan: Hypertension - well [...] prescribed. 05/29/2016 App[facility]ment: [facility] [phone] [facility] (15 min) Moderate 05/29/2016 Patient Education: [...] surrogate. 2015 Appointment: [facility] Rivera [facility]el[facility] [phone] [phone] [facility] - Annual Wellness Visit 04/19/2016 Patient [...] SSRI 2015 App[facility]ment: [facility] [phone] [facility] (15 min) Moderate 04/17/2016 Patient Education: [...] to medications. 10/12/2015 Appointment: Tamara Jones WPtel: [address] [place], [place] [id number] (30 min) [facility] 10/12/2015 Patient Education: Patient Medication Summary Completed [...] worsen. 11/03/2014 Appointment: [facility] Jones [facility] [phone] [facility] [place] New Patient 11/03/2014 Patient [...]
--- OUTSIDE RECORDS SUMMARY | 2019-09-24 08:43 | XMS REPORT | CCD ---
Author Author Marjorie Jones Organization Tamara Jones MD, [facility] Address [address] [place] [address] Phone Care Team Providers Care Clinical Advisor Name Role Phone PP Unavailable CCM Unavailable Summary Purpose Interface Exchange Insurance Providers Payer name Policy type / Coverage type Covered libertarian ID Effective Begin Date Effective End Date [employer] [employer] Medicare Part B [id number] Unknown Unknown [facility] icare Part B [id number] Unknown Unk nown Family history Mother Diagnosis [...] ntly unemployed 11/03/[address]: 4590533 Quit over 10 years ago 199911/03/2014 Alcohol [...] 7.5 mg-a cetaminophen 325 mg tablet RxNorm: 609219 1-2 Tablet(s) PO Q6 a s needed 08/16/2016 09/06/2016 Inactive lisinopril 10 mg-hyd rochlorothiazide 12.5 mg tablet RxNorm: 615677 TAKE ONE TABLET BY MOUTH ONCE DAILY 06/07/2016 06/01/2017 Active Lipitor 40 mg tablet RxNorm: 514075 1 Tablet(s) PO TIW 05/31/2016 05/01/2017 Active Lipitor 20 mg tablet RxNorm: 233415 1 Tablet(s) PO TIW 05/29/2016 05/30/2016 Inactive hydrocodone 7.5 mg-a cetaminophen 325 mg tablet RxNorm: 911992 1-2 Tablet(s) PO Q6 a s needed 05/23/2016 06/13/2016 Inactive escitalopram 10 mg t ablet RxNorm: 374651 1 Tablet(s) PO QPM st art at 1/2 pill nightly x 1wk then a full pill thereafter 04/17/2016 04/11/2017 Active hydrocodone 7.5 mg-a cetaminophen 325 mg tablet RxNorm: 957987 1-2 Tablet(s) PO Q6 a s needed 02/28/2016 03/20/2016 Inactive hydrocodone 7.5 mg-a cetaminophen 325 mg tablet RxNorm: 756166 1-2 Tablet(s) PO Q6 a s needed 12/04/2015 12/25/2015 Inactive diclofenac sodium 75 mg tablet,delayed release RxNorm: 490451 1 Tablet(s) PO BID 10/23/2015 10/16/2016 In active hydrocodone 7.5 mg-a cetaminophen 325 mg tablet RxNorm: 487103 1-2 Tablet(s) PO Q6 a s needed 09/12/2015 12/03/2015 Inactive promethazine 25 mg t ablet RxNorm: 654061 1 Tablet(s) PO Q6 as needed 08/30/2015 No Stop Date Active lisinopril 10 mg-hyd rochlorothiazide 12.5 mg tablet RxNorm: 306302 1 Tablet(s) PO daily 05/09/2015 05/02/2016 Inactive hydrocodone 7.5 mg-a cetaminophen 325 mg tablet RxNorm: 007849 1-2 Tablet(s) PO Q6 a s needed 04/17/2015 09/11/2015 Inactive lisinopril 10 mg-hyd rochlorothiazide 12.5 mg tablet RxNorm: 845847 1 Tablet(s) PO daily 01/31/2015 05/08/2015 Inactive hydrocodone 7.5 mg-a cetaminophen 325 mg tablet RxNorm: 710017 1-2 Tablet(s) PO Q6 a s needed 01/18/2015 04/16/2015 Inactive diclofenac sodium 75 mg tablet,delayed release RxNorm: 376396 1 Tablet(s) PO BID 01/18/2015 10/14/2015 In active Voltaren 1 % topical gel RxNorm: 972671 4 Gram(s) TOP QID chelsie ly to sacroiliac joint 11/03/2014 05/15/2015 In active lisinopril 10 mg-hyd rochlorothiazide 12.5 mg tablet RxNorm: 594691 1 Tablet(s) PO daily 11/03/2014 12/02/2014 Inactive B-12 Plus sublingual RxNorm: 47516 sublingual No Start Date Active amoxicillin 500 mg c apsule RxNorm: 815649 4 Capsule(s) PO as do ctor directed 1 hours before appt No Start Date Active gabapentin 300 mg ca psule RxNorm: 588418 1 Capsule(s) PO QHS No Start Date Active promethazine 25 mg t ablet RxNorm: 713850 1 Tablet(s) PO Q6 as needed No Start Date 08/29/2015 Inactive diclofenac sodium 75 mg tablet,delayed release RxNorm: 941256 1 Tablet(s) PO BID No Start Date 01/17/2015 Inactive hydrocodone 7.5 mg-a cetaminophen 325 mg tablet RxNorm: 762553 1-2 Tablet(s) PO Q6 a s needed No Start Date 01/17/2015 Inactive Crestor 5 mg tablet RxNorm: 142547 1 Tablet(s) PO 3 x week No [...] hTSH II 1.57 uIU/mL 09/25/2016 Comp Metabolic Vxy320 NA 139 mEq/L 09/25/2016 Comp Metabolic Qxv559 K 4.5 mEq/L 09/25/2016 Comp Metabolic Yhn778 CL 102 mEq/L 09/25/2016 Comp Metabolic Qqk384 CO2 29.0 mEq/L 09/25/2016 Comp Metabolic Rpl148 AN ION GAP 13 09/25/2016 Comp Metabolic Lvm563 GL UCOSE 84 mg/dL 09/25/2016 Comp Metabolic Zox085 Cr eat 0.9 mg/dL 09/25/2016 Comp Metabolic Jaa948 eG FR 70 ml/min/1.73m2 09/25 Comp Metabolic Rzu481 BUN 21 mg/dL 09/25/2016 Comp Metabolic Jzz996 B/ C Ratio 24.1 Ratio 09/25/2016 Comp Metabolic Cpq943 CA LCIUM 9.2 mg/dL 09/25/2016 Comp Metabolic Okj502 AL K PHOS 89 U/L 09/25/2016 Comp Metabolic Gil817 T(SGOT) 19 U/L 09/25/2016 Comp Metabolic Dtw028 AL T(SGPT) 19 U/L 09/25/2016 Comp Metabolic Qwf748 BI LI T 0.5 mg/dL 09/25/2016 Comp Metabolic Vcj483 AL BUMIN 4.1 g/dL 09/25/2016 Comp Metabolic Qxu967 TP RO 6.5 g/dL 09/25/2016 Comp Metabolic Wtr730 GL OB 2.4 g/dL 09/25/2016 Comp Metabolic Vvz495 A/ G Ratio 1.7 Ratio 09/25/2016 Comp Metabolic Rsk833 Os mo 280 mOsmo 09/25/2016 Cbc With [...] 32.2 pg 09/25/2016 Cbc With Differential Ord2 Worth% 7.7 % 09/25/2016 Cbc With Differential Ord2 [...] 2.84 K/ul 09/25/2016 Cbc With Differential Ord2 Worth ABS# 0.7 K/ul 09/25/2016 Cbc With Differential [...] Ord30 C/HDL 5.1 Ratio 04/19/2016 Comp Metabolic Kwp666 NA 135 mEq/L 04/19/2016 Comp Metabolic Kyk355 K 4.2 mEq/L 04/19/2016 Comp Metabolic Ffg860 CL 97 mEq/L 04/19/2016 Comp Metabolic Pho476 CO2 28.0 mEq/L 04/19/2016 Comp Metabolic Iev170 AN ION GAP 14 04/19/2016 Comp Metabolic Alo929 GL UCOSE 89 mg/dL 04/19/2016 Comp Metabolic Ecp629 Cr eat 0.8 mg/dL 04/19/2016 Comp Metabolic Jwx410 eG FR 77 ml/min/1.73m2 04/19 Comp Metabolic Lpr604 BUN 17 mg/dL 04/19/2016 Comp Metabolic Axh088 B/ C Ratio 21.3 Ratio 04/19/2016 Comp Metabolic Crq883 CA LCIUM 9.8 mg/dL 04/19/2016 Comp Metabolic Fht788 AL K PHOS 89 U/L 04/19/2016 Comp Metabolic Flm339 T(SGOT) 16 U/L 04/19/2016 Comp Metabolic Qsu577 AL T(SGPT) 13 U/L 04/19/2016 Comp Metabolic Qgo226 BI LI T 0.4 mg/dL 04/19/2016 Comp Metabolic Uee229 AL BUMIN 4.5 g/dL 04/19/2016 Comp Metabolic Tyv269 TP RO 7.2 g/dL 04/19/2016 Comp Metabolic Dct916 GL OB 2.7 g/dL 04/19/2016 Comp Metabolic Hgh348 A/ G Ratio 1.7 Ratio 04/19/2016 Comp Metabolic Nms054 Os mo 271 mOsmo 04/19/2016 Tsh Ord6 [...] 91.2 fl 04/19/2016 Cbc With Differential Ord2 Worth% 6.4 % 04/19/2016 Cbc With Differential Ord2 [...] 3.43 K/ul 04/19/2016 Cbc With Differential Ord2 Worth ABS# 0.7 K/ul 04/19/2016 Cbc With Differential [...] 30.8 pg 07/11/2015 Cbc With Differential Ord2 Worth% 7.8 % 07/11/2015 Cbc With Differential Ord2 [...] 2.75 K/ul 07/11/2015 Cbc With Differential Ord2 Worth ABS# 0.6 K/ul 07/11/2015 Cbc With Differential Ord2 Eos ABS# 0.4 K/ul 07/11/2015 Cbc With Differential Ord2 Baso ABS# 0.1 K/ul 07/11/2015 Cbc With Differential Ord2 New Analyzer Notice Please note new ref ranges s tarting 05-24-2015 due to implemntation of new five part differential hematolgy analyzer. 07/11/2015 Comp Metabolic Skv209 NA 137 mEq/L 07/11/2015 Comp Metabolic Htg355 K 4.4 mEq/L 07/11/2015 Comp Metabolic Mxx419 CL 100 mEq/L 07/11/2015 Comp Metabolic Jci157 CO2 25.0 mEq/L 07/11/2015 Comp Metabolic Jeb674 AN ION GAP 16 07/11/2015 Comp Metabolic Csc279 GL UCOSE 75 mg/dL 07/11/2015 Comp Metabolic Cjm717 Cr eat 0.8 mg/dL 07/11/2015 Comp Metabolic Jnx271 eG FR 76 ml/min/1.73m2 07/10 Comp Metabolic Cbo032 BUN 18 mg/dL 07/11/2015 Comp Metabolic Brt312 B/ C Ratio 22.2 Ratio 07/11/2015 Comp Metabolic Ipj306 CA LCIUM 9.5 mg/dL 07/11/2015 Comp Metabolic Kqd245 AL K PHOS 92 U/L 07/11/2015 Comp Metabolic Akt149 T(SGOT) 16 U/L 07/11/2015 Comp Metabolic Xml307 AL T(SGPT) 18 U/L 07/11/2015 Comp Metabolic Bhq044 BI LI T 0.6 mg/dL 07/11/2015 Comp Metabolic Awe739 AL BUMIN 4.3 g/dL 07/11/2015 Comp Metabolic Muk579 TP RO 6.7 g/dL 07/11/2015 Comp Metabolic Sfm142 GL OB 2.4 g/dL 07/11/2015 Comp Metabolic Khb816 A/ G Ratio 1.7 Ratio 07/11/2015 Comp Metabolic Ukl254 Os mo 274 mOsmo 07/11/2015 Lipid Ord30 CHOL 197 mg/dL 07/11/2015 Lipid Ord30 HDL 55.0 mg/dl 07/11/2015 Lipid Ord30 TRIG 126 mg/dL 07/11/2015 Lipid Ord30 LDL 117 mg/dL 07/11/2015 Lipid Ord30 C/HDL 3.6 Ratio 07/11/2015 B12 Gzn678 B12 >1500.00 pg/ml 07/11/2015 Review of Systems [...] Codes Date DESTRUCT PREMALG LES ION CPT-4: 89929Fxeohvh 10/22/2016 PPPS, SUBSEQ VISIT CPT-4: A4158Kzdegby 04/19/2016 Vital Signs Date Vital 10/22/2016 Blood Pressure 1: 136/78 Code: 8480-6 BMI: 30.1 Code: 53358-0 Heart Rate 1: 70 bpm Height: 5'3" SpO2: 95% Weight: 170 lbs 09/25/2016 Blood Pressure 1: 122/72 Code: 8480-6 BMI: 29.8 Code: 84703-0 Heart Rate 1: 67 bpm Height: 5'3" SpO2: 97% Weight: 168 lbs 05/29/2016 Blood Pressure 1: 112/70 Code: 8480-6 BMI: 27.8 Code: 45885-5 Heart Rate 1: 102 bpm Height: 5'3" SpO2: 98% Weight: 157 lbs 04/19/2016 Blood Pressure 1: 128/58 Code: 8480-6 BMI: 28.5 Code: 50143-2 Heart Rate 1: 85 bpm Height: 5'3" SpO2: 98% Waist Measure (cm): 81 cm Weight: 161 lbs 04/17/2016 Blood Pressure 1: 128/82 Code: 8480-6 BMI: 28.5 Code: 40436-3 Heart Rate 1: 85 bpm Height: 5'3" SpO2: 98% Weight: 161 lbs 10/12/2015 Blood Pressure 1: 124/68 Code: 8480-6 BMI: 28.2 Code: 41139-7 Heart Rate 1: 72 bpm Height: 5'3" SpO2: 98% Weight: 159 lbs 07/11/2015 Blood Pressure 1: 128/88 Code: 8480-6 BMI: 28.5 Code: 12160-2 Heart Rate 1: 73 bpm Height: 5'3" SpO2: 93% Weight: 161 lbs 05/16/2015 Blood Pressure 1: 120/82 Code: 8480-6 BMI: 28.3 Code: 05819-4 Heart Rate 1: 82 bpm Height: 5'3" SpO2: 93% Weight: 160 lbs 11/03/2014 Blood Pressure 1: 132/74 Code: 8480-6 BMI: 27.6 Code: 71742-5 Heart Rate 1: 80 bpm Height: 5'3" [...] Encounters Encounter Performer Loca tion Codes Date ([id number]) 15014 EST. P ATIENT, LEVEL IV Diagnosis: Encounter for screening mammogram for malignant neoplasm of breast[ICD10: Z12.31] Diagnosis: Essential (primary) hypertension[ICD10: I10] Diagnosis: Mixed hyperlipidemia[ICD10: E78.2] Diagnosis: Major depressive disorder, recurrent, mild[ICD10: F33.0] Tamara Jones MD, [facility] CPT-4: 75228 09/25/2016 [id number] EST. P ATIENT, LEVEL IV Diagnosis: Essential (primary) hypertension[ICD10: I10] Diagnosis: Mixed hyperlipidemia[ICD10: E78.2] Diagnosis: Major depressive disorder, recurrent, moderate[ICD10: F33.1] Tamara Jones MD, [facility] CPT-4: 50272 05/29/2016 [id number] 02026 EST. P ATIENT, LEVEL IV Diagnosis: Essential (primary) hypertension[ICD10: I10] Diagnosis: Mixed hyperlipidemia[ICD10: E78.2] Diagnosis: Pain in right hip[ICD10: M25.551] Diagnosis: Major depressive disorder, recurrent, mild[ICD10: F33.0] Tamara Jones MD, [facility] CPT-4: 87497 04/17/2016 ([id number]) 16582 EST. P ATIENT, LEVEL IV Diagnosis: Essential (primary) hypertension[ICD10: I10] Diagnosis: Low back pain[ICD10: M54.5] Diagnosis: Mixed hyperlipidemia[ICD10: E78.2] Tamara Jones MD, [facility] CPT- 4: 87434 10/12/2015 ([id number]) 34629 EST. P ATIENT, LEVEL III Diagnosis: Essential (primary) hypertension[ICD10: I10] Diagnosis: Mixed hyperlipidemia[ICD10: E78.2] Diagnosis: Vitamin B12 deficiency anemia, unspecified[ICD10: D51.9] Elina Jones MD, [facility] CPT-4: 21535 07/11/2015 ([id number]) 13717 EST. P ATIENT, LEVEL IV Diagnosis: Essential (primary) hypertension[ICD10: I10] Diagnosis: Low back pain[ICD10: M54.5] Diagnosis: Sciatica, right side[ICD10: M54.31] Elina Jones MD, [facility] CPT-4: 47879 05/16/2015 ([id number]) OFFICE [facility] - LEVEL 4 Diagnosis: ESSENTIAL HYPERTENSION[ICD9: 401.9] Diagnosis: HYPERLIPIDEMIA[ICD9: 272.4] Diagnosis: OSTEOARTH NOS-UNSPEC[ICD9: 715.90] Diagnosis: Sacroiliitis[ICD9: 720.2] Tamara Jones MD, [facility] CPT-4: 80531 11/03/2014 Plan of Care Planned Activity Notes C odes Status Date Visit Plan: Wound Instructions - Pt was instructed to keep the wound clean, wash with antibacterial soap, use triple antibiotic ointment, call if redness, pustular drainage, or any other acute concerns. 10/22/2016 Patient Education: Patient Medication Summary Completed [...] with SSRI 09/25/2016 Appointment: Tamara Jones WPtel: [phone] [facility] [phone] (15 min) Moderate 09/25/2016 Patient Education: Patient Medication Summary Completed 09/25/2016 Patient Education: Obesity Completed 09/25/2016 Care Plan: SCREENINGMAMMOGRAPHYDIGITAL LOINC : 17612-1 Pending 09/25/2016 Visit Plan: Hypertension - well [...] prescribed. 05/29/2016 Appointment: Tamara Jones WPtel: [phone] [facility] [id number] (15 min) Moderate 05/29/2016 Patient Education: Patient [...] surrogate. 2015 [facility] [phone] [phone] [facility] - Annual Wellness Visit 04/19/2016 Patient Education: [...] SSRI 2015 Appointment: Tamara Jones WPtel: [phone] [facility] [place] [address] (15 min) Moderate 04/17/2016 Patient Education: Patient [...] normal liver response to medications. 10/12/2015 Appointment: Tamaar Jones WPtel: [phone] [facility] [place] (30 min) [facility] 10/12/2015 Patient Education: Patient Medication Summary Completed [...] they worsen. 11/03/2014 Appointment: Tamara Jones WPtel: [facility] [place] [place] New Patient 11/03/2014 Patient Education: [...]
--- OUTSIDE RECORDS SUMMARY | 2019-09-24 08:44 | XMS REPORT | CCD ---
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 Name Role Phone PP Unavailable CCM Unavailable Summary Purpose Interface Exchange Insurance Providers Payer name Policy type / Coverage type Covered constitution party ID Effective Begin Date Effective End Date [place] [employer] Medicare Part B [id number] Unknown [facility] icare Part B [id number] Un known Family history Mother Diagnosis Age At Onset Diabetes mellitus Type 2 Unknown Father Diagnosis Age At Onset Depression Unknown Hyperlipidemia Unknown Hypertension Unknown Stroke Unknown Coronary Artery Disease Unknown Social History Social History Element Codes Description Effective Dates Marital status Unknown M arried Walter 11/03/2014 Number of children Unknown 0 11/03/2014 Employment Unknown Curre ntly unemployed 11/03/[address]: 6178993 Quit over 10 years ago 199911/03/2014 Alcohol history Unknown occasionally drinks alcohol 2 per month 11/03/2014 Allergies, Adverse Reactions, Alerts Substance Reaction Codes Entered Date Inactivated Date Status * NO KNOWN DRUG DAVID RGIES Unknown 11/03/2014 No Inactive Date Active Past Medical History Illness Codes Condition Status Onset Date Resolved Date Acute bronchitis, un specified ICD-9: 466.0 ICD-10: J20.9 Active 09/08/2018 Unknown Cough ICD-9: 786.2 ICD-10: R05 Active 02/18/2018 Unknown Essential (primary) hypertension ICD-9: 401.1 ICD-10: I10 Active 09/25/2016 Unknown Low back pain ICD-9: 724.2 ICD-10: M54.5 Active 10/11/2015 Unknown Pain in right hip ICD-9: 719.45 ICD-10: M25.551 Active 04/16/2016 Unknown Acute bronchitis due to other specified [...] Condition Codes Effectiv e Dates Condition Status Acute bronchitis, un specified ICD-9: 466.0 ICD-10: J20.9 09/08/2018 Active Cough ICD-9: 786.2 ICD-10: R05 02/18/2018 Active Essential (primary) hypertension ICD-9: 401.1 ICD-10: I10 09/25/2016 Active Low back pain ICD-9: 724.2 ICD-10: M54.5 10/11/2015 Active Pain in right hip ICD-9: 719.45 ICD-10: M25.551 04/16/2016 Active Acute bronchitis due to other specified [...] Date Stop Date Sta tus Fill Instructions cefdinir 300 mg capsule RxNorm: 606155 1 Capsule(s) PO BID 09/08/2018 09/14/2018 Active START TOMORROW Ventolin HFA 90 mcg/ actuation aerosol inhaler RxNorm: 109685 2 Puff(s) INH Q4 PRN 09/08/2018 11/06/2018 Ac tive Zithromax Z-Feng 250 mg tablet RxNorm: 842242 1 Tablet(s) PO UD 09/08/2018 09/12/2018 Active START TODAY prednisone 20 mg tablet RxNorm: 657962 2 Tablet(s) PO daily 09/08/2018 09/12/2018 Active START TOMORROW 5 ceftriaxone 500 mg s olution for injection RxNorm: 2682864 Inj 09/08/2018 09/08/2018 Inactive Kenalog 40 mg/mL christoph pension for injection RxNorm: 8161091 Milliliter(s) Inj 09/08/2018 09/08/2018 In active gabapentin 100 mg ca psule RxNorm: 615195 TAKE 1 CAPSULE BY SCOTT TH ONCE DAILY IN THE MORNING 08/10/2018 No Stop Date Active lisinopril 10 mg-hyd rochlorothiazide 12.5 mg tablet RxNorm: 710408 TAKE 1 TABLET BY MOUTH ONCE DAILY 07/01/2018 No Stop Date Active hydrocodone 7.5 mg-a cetaminophen 325 mg tablet RxNorm: 928472 1 Tablet(s) PO TID 06/29/2018 07/28/2018 In active memantine 10 mg tablet RxNorm: 166853 1 Tablet(s) PO BID 06/18/2018 01/13/2019 Active Aricept 10 mg tablet RxNorm: 559218 1/2 tab daily x 2 weeks then increase to 1 Tablet(s) PO daily thereafter 06/18/2018 08/11/2019 Active escitalopram 10 mg t ablet RxNorm: 110215 TAKE ONE TABLET BY MO UTH ONCE DAILY IN THE EVENING 06/18/2018 No Stop Date Active gabapentin 100 mg ca psule RxNorm: 325119 TAKE 1 CAPSULE BY SCOTT TH ONCE DAILY IN THE MORNING 06/11/2018 08/09/2018 Inactive Lipitor 20 mg tablet RxNorm: 788669 TAKE ONE TABLET BY MOUTH THREE TIMES [facility] 05/06/2018 No Stop Date Active hydrocodone 7.5 mg-a cetaminophen 325 mg tablet RxNorm: 920131 1 Tablet(s) PO TID 04/30/2018 05/29/2018 In active hydrocodone 7.5 mg-a cetaminophen 325 mg tablet RxNorm: 845970 1 Tablet(s) PO TID 03/26/2018 04/24/2018 In active Ventolin HFA 90 mcg/ actuation aerosol inhaler RxNorm: 417458 2 INH TID x 1 week th en twice daily x 5 days then as needed. 02/18/2018 04/18/2018 Inactive plea se give pt a spacer cefdinir 300 mg capsule RxNorm: 310548 1 Capsule(s) PO BID 02/18/2018 02/24/2018 Inactive prednisone 20 mg tablet RxNorm: 832485 2 Tablet(s) PO daily 02/18/2018 02/22/2018 Inactive memantine 10 mg tablet RxNorm: 233635 1/2 tab nightly x1wk then 1/2tab bid x1w k then 1/2tab am and 1tab hs x1wk then 1 Tablet(s) PO BID 01/08/2018 06/17/2018 Inactive hydrocodone 7.5 mg-a cetaminophen 325 mg tablet RxNorm: 560240 1 Tablet(s) PO TID 01/08/2018 02/06/2018 In active gabapentin 100 mg ca psule RxNorm: 384857 TAKE 1 CAPSULE BY [facility] ONCE DAILY IN THE MORNING 12/24/2017 06/10/2018 Inactive hydrocodone 7.5 mg-a cetaminophen 325 mg tablet RxNorm: 900695 1-2 Tablet(s) PO Q6 a s needed 12/01/2017 12/22/2017 Inactive diclofenac sodium 75 mg tablet,delayed release RxNorm: 875389 TAKE ONE TABLET BY [facility] TWICE DAILY 11/10/2017 No Stop Date Active hydrocodone 7.5 mg-a cetaminophen 325 mg tablet RxNorm: 383050 1-2 Tablet(s) PO Q6 a s needed 10/17/2017 11/07/2017 Inactive hydrocodone 7.5 mg-a cetaminophen 325 mg tablet RxNorm: 244303 1-2 Tablet(s) PO Q6 a s needed 09/01/2017 09/22/2017 Inactive hydrocodone 7.5 mg-a cetaminophen 325 mg tablet RxNorm: 891179 1-2 Tablet(s) PO Q6 a s needed 08/25/2017 08/31/2017 Inactive hydrocodone 7.5 mg-a cetaminophen 325 mg tablet RxNorm: 091671 1-2 Tablet(s) PO Q6 a s needed 07/14/2017 08/04/2017 Inactive lisinopril 10 mg-hyd rochlorothiazide 12.5 mg tablet RxNorm: 952441 Tablet(s) TAKE ONE TABLET BY MOUTH ONCE DAILY 07/14/2017 06/30/2018 Inactive gabapentin 100 mg ca psule RxNorm: 867625 1 Capsule(s) PO QAM 06/23/2017 12/19/2017 Inactive hydrocodone 7.5 mg-a cetaminophen 325 mg tablet RxNorm: 783855 1-2 Tablet(s) PO Q6 a s needed 05/20/2017 06/10/2017 Inactive Lipitor 20 mg tablet RxNorm: 391971 1 Tablet(s) PO TIW 05/13/2017 05/05/2018 Inactive escitalopram 10 mg t ablet RxNorm: 933375 1 Tablet(s) PO QPM 05/13/2017 05/07/2018 Inactive escitalopram 10 mg t ablet RxNorm: 015964 1 Tablet(s) PO QPM 04/16/2017 05/12/2017 Inactive lisinopril 10 mg-hyd rochlorothiazide 12.5 mg tablet RxNorm: 420120 TAKE ONE TABLET BY MOUTH ONCE DAILY 04/15/2017 07/13/2017 Inactive escitalopram 10 mg t ablet RxNorm: 036425 1 Tablet(s) PO QPM 04/09/2017 04/15/2017 Inactive hydrocodone 7.5 mg-a cetaminophen 325 mg tablet RxNorm: 012367 1-2 Tablet(s) PO Q6 a s needed 03/17/2017 04/07/2017 Inactive hydrocodone 7.5 mg-a cetaminophen 325 mg tablet RxNorm: 370921 1-2 Tablet(s) PO Q6 a s needed 12/27/2016 01/17/2017 Inactive gabapentin 100 mg ca psule RxNorm: 493761 1 Capsule(s) PO QAM 12/16/2016 06/13/2017 Inactive prednisone 20 mg tablet RxNorm: 618122 2 Tablet(s) PO daily 12/06/2016 12/05/2016 Inactive prednisone 20 mg tablet RxNorm: 579054 2 Tablet(s) PO daily 12/06/2016 12/15/2016 Inactive Kenalog 40 mg/mL christoph pension for injection RxNorm: 0162638 1 Milliliter(s) Inj 12/05/2016 12/05/2016 In active diclofenac sodium 75 mg tablet,delayed release RxNorm: 452831 1 Tablet(s) PO BID 10/30/2016 10/24/2017 In active hydrocodone 7.5 mg-a cetaminophen 325 mg tablet RxNorm: 091778 1-2 Tablet(s) PO Q6 a s needed 10/23/2016 11/13/2016 Inactive hydrocodone 7.5 mg-a cetaminophen 325 mg tablet RxNorm: 205244 1-2 Tablet(s) PO Q6 a s needed 08/16/2016 09/06/2016 Inactive lisinopril 10 mg-hyd rochlorothiazide 12.5 mg tablet RxNorm: 305741 TAKE ONE TABLET BY MOUTH ONCE DAILY 06/07/2016 04/14/2017 Inactive Lipitor 40 mg tablet RxNorm: 585199 1 Tablet(s) PO TIW 05/31/2016 05/01/2017 Inactive Lipitor 20 mg tablet RxNorm: 310548 1 Tablet(s) PO TIW 05/29/2016 05/30/2016 Inactive hydrocodone 7.5 mg-a cetaminophen 325 mg tablet RxNorm: 653886 1-2 Tablet(s) PO Q6 a s needed 05/23/2016 06/13/2016 Inactive escitalopram 10 mg t ablet RxNorm: 249068 1 Tablet(s) PO QPM st art at 1/2 pill nightly x 1wk then a full pill thereafter 04/17/2016 04/08/2017 Inactive hydrocodone 7.5 mg-a cetaminophen 325 mg tablet RxNorm: 346537 1-2 Tablet(s) PO Q6 a s needed 02/28/2016 03/20/2016 Inactive hydrocodone 7.5 mg-a cetaminophen 325 mg tablet RxNorm: 609877 1-2 Tablet(s) PO Q6 a s needed 12/04/2015 12/25/2015 Inactive diclofenac sodium 75 mg tablet,delayed release RxNorm: 563549 1 Tablet(s) PO BID 10/23/2015 10/16/2016 In active hydrocodone 7.5 mg-a cetaminophen 325 mg tablet RxNorm: 969881 1-2 Tablet(s) PO Q6 a s needed 09/12/2015 12/03/2015 Inactive promethazine 25 mg t ablet RxNorm: 114874 1 Tablet(s) PO Q6 as needed 08/30/2015 No Stop Date Active lisinopril 10 mg-hyd rochlorothiazide 12.5 mg tablet RxNorm: 385199 1 Tablet(s) PO daily 05/09/2015 05/02/2016 Inactive hydrocodone 7.5 mg-a cetaminophen 325 mg tablet RxNorm: 526120 1-2 Tablet(s) PO Q6 a s needed 04/17/2015 09/11/2015 Inactive lisinopril 10 mg-hyd rochlorothiazide 12.5 mg tablet RxNorm: 808603 1 Tablet(s) PO daily 01/31/2015 05/08/2015 Inactive hydrocodone 7.5 mg-a cetaminophen 325 mg tablet RxNorm: 461690 1-2 Tablet(s) PO Q6 a s needed 01/18/2015 04/16/2015 Inactive diclofenac sodium 75 mg tablet,delayed release RxNorm: 971933 1 Tablet(s) PO BID 01/18/2015 10/14/2015 In active Voltaren 1 % topical gel RxNorm: 294367 4 Gram(s) TOP QID chelsie ly to sacroiliac joint 11/03/2014 05/15/2015 In active lisinopril 10 mg-hyd rochlorothiazide 12.5 mg tablet RxNorm: 067398 1 Tablet(s) PO daily 11/03/2014 12/02/2014 Inactive B-12 Plus sublingual RxNorm: 24879 sublingual No Start Date Active amoxicillin 500 mg c apsule RxNorm: 110513 4 Capsule(s) PO as do ctor directed 1 hours before appt No Start Date Active gabapentin 300 mg ca psule RxNorm: 344857 1 Capsule(s) PO QHS No Start Date Active promethazine 25 mg t ablet RxNorm: 053751 1 Tablet(s) PO Q6 as needed No Start Date 08/29/2015 Inactive diclofenac sodium 75 mg tablet,delayed release RxNorm: 255304 1 Tablet(s) PO BID No Start Date 01/17/2015 Inactive hydrocodone 7.5 mg-a cetaminophen 325 mg tablet RxNorm: 783288 1-2 Tablet(s) PO Q6 a s needed No Start Date 01/17/2015 Inactive Crestor 5 mg tablet RxNorm: 497735 1 Tablet(s) PO 3 x week No Start Date 05/28/2016 Inactive Medication Administered Medication Codes Instruc tions Start Date Status ceftriaxone 500 mg solution for injection RxNorm: 4313627 09/08/2018 No longer A ctive Kenalog 40 mg/mL suspension for injection RxNorm: 6129337 Milliliter 09/08/2018 No longer Active Kenalog 40 mg/mL suspension for injection RxNorm: 0057118 1Milliliter 12/05/2016 N o longer Active Immunizations No Immunization data Assessments Condition Codes Effectiv e Dates Acute bronchitis, unspecified ICD-10 : J20.9 ICD-9: 466.0 09/08/2018 Cough ICD-10: R05 ICD-9: 786.2 09/08/2018 Essential (primary) hypertension ICD -10: I10 ICD-9: 401.1 06/18/2018 Pain in right hip ICD-10: M25.551 ICD-9: 719.45 06/18/2018 Low back pain ICD-10: M54.5 ICD-9: 724.2 06/18/2018 Acute bronchitis due to other specified [...] Mixed hyperlipidemia ICD-10: E78.2 ICD-9: 272.2 09/25/2016 Essential (primary) hypertension ICD -10: I10 [...] Visit Reason For Visit Effective Dates Notes cough 09/08/2018 hypertension 06/18/2018 cough 02/18/2018 hypertension 01/08/2018 hypertension 09/09/2017 hypertension 03/25/2017 sciatica 12/16/2016 ongo ing sciatica 12/05/2016 skin lesion 10/22/2016 hypertension 09/25/2016 hypertension 05/29/2016 Annual Medicare Wellness Exam 04/19/2016 hypertension 04/17/2016 back pain 10/12/2015 back pain 07/11/2015 back pain 05/16/2015 hypertension 11/03/2014 Results Observation Observation Code Item Item Code Result Date Comp Metabolic Msn887 NA 140 mEq/L 01/14/2018 Comp Metabolic Xor177 K 3.8 mEq/L 01/14/2018 Comp Metabolic Gxp898 CL 101 mEq/L 01/14/2018 Comp Metabolic Qik090 CO2 30.0 mEq/L 01/14/2018 Comp Metabolic Hyx716 AN ION GAP 13 01/14/2018 Comp Metabolic Jae608 GL UCOSE 89 mg/dL 01/14/2018 Comp Metabolic Wsu221 Cr eat 1.0 mg/dL 01/14/2018 Comp Metabolic Jwn058 eG FR 63 ml/min/1.73m2 01/14 Comp Metabolic Uoz331 BUN 16 mg/dL 01/14/2018 Comp Metabolic Bjb010 B/ C Ratio 16.8 Ratio 01/14/2018 Comp Metabolic Fzp961 CA LCIUM 9.2 mg/dL 01/14/2018 Comp Metabolic Wdl635 AL K PHOS 88 U/L 01/14/2018 Comp Metabolic Cin083 T(SGOT) 13 U/L 01/14/2018 Comp Metabolic Dho387 AL T(SGPT) 9 U/L 01/14/2018 Comp Metabolic Iua188 BI LI T 0.5 mg/dL 01/14/2018 Comp Metabolic Ayk632 AL BUMIN 4.0 g/dL 01/14/2018 Comp Metabolic Czd040 TP RO 6.5 g/dL 01/14/2018 Comp Metabolic Dua617 GL OB 2.5 g/dL 01/14/2018 Comp Metabolic Vfx662 A/ G Ratio 1.6 Ratio 01/14/2018 Comp Metabolic Sse685 Os mo 280 mOsmo 01/14/2018 Tsh Ord6 [...] 31.5 pg 01/14/2018 Cbc With Differential Ord2 [place]% 8.5 % 01/14/2018 Cbc With Differential Ord2 [...] 3.44 K/ul 01/14/2018 Cbc With Differential Ord2 [place] ABS# 0.9 K/ul 01/14/2018 Cbc With Differential [...] 31.0 pg 09/10/2017 Cbc With Differential Ord2 [place]% 9.2 % 09/10/2017 Cbc With Differential Ord2 [...] 1.82 K/ul 09/10/2017 Cbc With Differential Ord2 [place] ABS# 0.5 K/ul 09/10/2017 Cbc With Differential Ord2 Eos ABS# 0.1 K/ul 09/10/2017 Cbc With Differential Ord2 Baso ABS# 0.0 K/ul 09/10/2017 Tsh Ord6 TSH (3rd IS) 1.22 uIU/mL 09/10/2017 Comp Metabolic Iwf505 NA 140 mEq/L 09/10/2017 Comp Metabolic Umf751 K 4.2 mEq/L 09/10/2017 Comp Metabolic Our272 CL 107 mEq/L 09/10/2017 Comp Metabolic Ssu767 CO2 25.0 mEq/L 09/10/2017 Comp Metabolic Aca008 AN ION GAP 12 09/10/2017 Comp Metabolic Sth890 GL UCOSE 84 mg/dL 09/10/2017 Comp Metabolic Qms487 Cr eat 0.7 mg/dL 09/10/2017 Comp Metabolic Lgd631 eG FR 85 ml/min/1.73m2 09/10 Comp Metabolic Gkk435 BUN 11 mg/dL 09/10/2017 Comp Metabolic Bnk538 B/ C Ratio 15.1 Ratio 09/10/2017 Comp Metabolic Ice219 CA LCIUM 9.1 mg/dL 09/10/2017 Comp Metabolic Wxy886 AL K PHOS 61 U/L 09/10/2017 Comp Metabolic Ptu242 T(SGOT) 38 U/L 09/10/2017 Comp Metabolic Cqo234 AL T(SGPT) 24 U/L 09/10/2017 Comp Metabolic Clc874 BI LI T 0.5 mg/dL 09/10/2017 Comp Metabolic Ncn698 AL BUMIN 4.0 g/dL 09/10/2017 Comp Metabolic Elg033 TP RO 6.6 g/dL 09/10/2017 Comp Metabolic Htc098 GL OB 2.6 g/dL 09/10/2017 Comp Metabolic Anu881 A/ G Ratio 1.6 Ratio 09/10/2017 Comp Metabolic Tji459 Os mo 278 mOsmo 09/10/2017 Lipid Ord30 CHOL 148 mg/dL 09/10/2017 Lipid Ord30 HDL 41.0 mg/dl 09/10/2017 Lipid Ord30 TRIG 66 mg/dL 09/10/2017 Lipid Ord30 LDL 94 mg/dL 09/10/2017 Lipid Ord30 C/HDL 3.6 Ratio 09/10/2017 Tsh Ord6 hTSH II 1.57 uIU/mL 09/25/2016 Comp Metabolic Ktz805 NA 139 mEq/L 09/25/2016 Comp Metabolic Ybp240 K 4.5 mEq/L 09/25/2016 Comp Metabolic Phx719 CL 102 mEq/L 09/25/2016 Comp Metabolic Vuf337 CO2 29.0 mEq/L 09/25/2016 Comp Metabolic Yze107 AN ION GAP 13 09/25/2016 Comp Metabolic Qje542 GL UCOSE 84 mg/dL 09/25/2016 Comp Metabolic Clw368 Cr eat 0.9 mg/dL 09/25/2016 Comp Metabolic Ick361 eG FR 70 ml/min/1.73m2 09/25 Comp Metabolic Riu681 BUN 21 mg/dL 09/25/2016 Comp Metabolic Nqm251 B/ C Ratio 24.1 Ratio 09/25/2016 Comp Metabolic Laz684 CA LCIUM 9.2 mg/dL 09/25/2016 Comp Metabolic Vjy180 AL K PHOS 89 U/L 09/25/2016 Comp Metabolic Ovn695 T(SGOT) 19 U/L 09/25/2016 Comp Metabolic Fna773 AL T(SGPT) 19 U/L 09/25/2016 Comp Metabolic Hmu186 BI LI T 0.5 mg/dL 09/25/2016 Comp Metabolic Dpm134 AL BUMIN 4.1 g/dL 09/25/2016 Comp Metabolic Acb080 TP RO 6.5 g/dL 09/25/2016 Comp Metabolic Ezk276 GL OB 2.4 g/dL 09/25/2016 Comp Metabolic Hlr467 A/ G Ratio 1.7 Ratio 09/25/2016 Comp Metabolic See909 Os mo 280 mOsmo 09/25/2016 Cbc With [...] 32.2 pg 09/25/2016 Cbc With Differential Ord2 [place]% 7.7 % 09/25/2016 Cbc With Differential Ord2 [...] 2.84 K/ul 09/25/2016 Cbc With Differential Ord2 [place] ABS# 0.7 K/ul 09/25/2016 Cbc With Differential [...] Ord30 C/HDL 5.1 Ratio 04/19/2016 Comp Metabolic Evu166 NA 135 mEq/L 04/19/2016 Comp Metabolic Xlr985 K 4.2 mEq/L 04/19/2016 Comp Metabolic Aix337 CL 97 mEq/L 04/19/2016 Comp Metabolic Hsz538 CO2 28.0 mEq/L 04/19/2016 Comp Metabolic Jqh034 AN ION GAP 14 04/19/2016 Comp Metabolic Miy508 GL UCOSE 89 mg/dL 04/19/2016 Comp Metabolic Ngz321 Cr eat 0.8 mg/dL 04/19/2016 Comp Metabolic Vhd164 eG FR 77 ml/min/1.73m2 04/19 Comp Metabolic Tdc848 BUN 17 mg/dL 04/19/2016 Comp Metabolic Gjg128 B/ C Ratio 21.3 Ratio 04/19/2016 Comp Metabolic Pij934 CA LCIUM 9.8 mg/dL 04/19/2016 Comp Metabolic Cub897 AL K PHOS 89 U/L 04/19/2016 Comp Metabolic Sbt744 T(SGOT) 16 U/L 04/19/2016 Comp Metabolic Tjv759 AL T(SGPT) 13 U/L 04/19/2016 Comp Metabolic Byq159 BI LI T 0.4 mg/dL 04/19/2016 Comp Metabolic Qsu565 AL BUMIN 4.5 g/dL 04/19/2016 Comp Metabolic Gpn935 TP RO 7.2 g/dL 04/19/2016 Comp Metabolic Ixj319 GL OB 2.7 g/dL 04/19/2016 Comp Metabolic Zzi499 A/ G Ratio 1.7 Ratio 04/19/2016 Comp Metabolic Cgk315 Os mo 271 mOsmo 04/19/2016 Tsh Ord6 [...] 30.9 pg 04/19/2016 Cbc With Differential Ord2 [place]% 6.4 % 04/19/2016 Cbc With Differential Ord2 [...] 3.43 K/ul 04/19/2016 Cbc With Differential Ord2 [place] ABS# 0.7 K/ul 04/19/2016 Cbc With Differential [...] 30.8 pg 07/11/2015 Cbc With Differential Ord2 [place]% 7.8 % 07/11/2015 Cbc With Differential Ord2 [...] 2.75 K/ul 07/11/2015 Cbc With Differential Ord2 [place] ABS# 0.6 K/ul 07/11/2015 Cbc With Differential Ord2 Eos ABS# 0.4 K/ul 07/11/2015 Cbc With Differential Ord2 Baso ABS# 0.1 K/ul 07/11/2015 Cbc With Differential Ord2 New Analyzer Notice Please note new ref ranges s tarting 05-24-2015 due to implemntation of new five part differential hematolgy analyzer. 07/11/2015 Comp Metabolic Mur246 NA 137 mEq/L 07/11/2015 Comp Metabolic Xmi667 K 4.4 mEq/L 07/11/2015 Comp Metabolic Jlp626 CL 100 mEq/L 07/11/2015 Comp Metabolic Smz772 CO2 25.0 mEq/L 07/11/2015 Comp Metabolic Hta564 AN ION GAP 16 07/11/2015 Comp Metabolic Svi122 GL UCOSE 75 mg/dL 07/11/2015 Comp Metabolic Fiv349 Cr eat 0.8 mg/dL 07/11/2015 Comp Metabolic Nck250 eG FR 76 ml/min/1.73m2 07/10 Comp Metabolic Njx207 BUN 18 mg/dL 07/11/2015 Comp Metabolic Gqy499 B/ C Ratio 22.2 Ratio 07/11/2015 Comp Metabolic Rnw264 CA LCIUM 9.5 mg/dL 07/11/2015 Comp Metabolic Ztq517 AL K PHOS 92 U/L 07/11/2015 Comp Metabolic Pdh650 T(SGOT) 16 U/L 07/11/2015 Comp Metabolic Jui913 AL T(SGPT) 18 U/L 07/11/2015 Comp Metabolic Cwr635 BI LI T 0.6 mg/dL 07/11/2015 Comp Metabolic Kvt224 AL BUMIN 4.3 g/dL 07/11/2015 Comp Metabolic Vql078 TP RO 6.7 g/dL 07/11/2015 Comp Metabolic Aoh146 GL OB 2.4 g/dL 07/11/2015 Comp Metabolic Goe120 A/ G Ratio 1.7 Ratio 07/11/2015 Comp Metabolic Ysc729 Os mo 274 mOsmo 07/11/2015 Lipid Ord30 CHOL 197 mg/dL 07/11/2015 Lipid Ord30 HDL 55.0 mg/dl 07/11/2015 Lipid Ord30 TRIG 126 mg/dL 07/11/2015 Lipid Ord30 LDL 117 mg/dL 07/11/2015 Lipid Ord30 C/HDL 3.6 Ratio 07/11/2015 B12 Jct743 B12 >1500.00 pg/ml 07/11/2015 Review of Systems System Result Effective Dates Constitutional recent illness 09/08/2018 Constitutional No anorexia [...] Result Effective Dates Notes Full Exam - ENT Constitutional general appearance [...] CPT-4: J0696 09/08/2018 DRAIN/INJECT JOINT/B URSA CPT-4: 98519 12/05/2016 TRIAMCINOLONE ACET I [place] NOS CPT-4: J3301 12/05/2016 DESTRUCT PREMALG LESION CPT-4: 01152 10/22/2016 PPPS, SUBSEQ VISIT CPT- 4: G0439 04/19/2016 Vital Signs Date Vital 09/08/2018 Blood Pressure 1: 136/78 Code: 8480-6 BMI: 33.7 Code: 24571-6 Heart Rate 1: 53 bpm Height: 5'3" SpO2: 95% Temperature: 36.4 (C ) / 97.5 (F) Weight: 190 lbs 06/18/2018 Blood Pressure 1: 130/70 Code: 8480-6 BMI: 33.5 Code: 80592-2 Heart Rate 1: 72 bpm Height: 5'3" SpO2: 97% Weight: 189 lbs 02/18/2018 Blood Pressure 1: 100/52 Code: 8480-6 BMI: 31.9 Code: 41609-3 Heart Rate 1: 92 bpm Height: 5'3" SpO2: 90% Temperature: 36.6 (C ) / 97.9 (F) Weight: 180 lbs 01/08/2018 Blood Pressure 1: 140/80 Code: 8480-6 BMI: 32.6 Code: 84994-6 Heart Rate 1: 82 bpm Height: 5'3" SpO2: 92% Weight: 184 lbs 09/09/2017 Blood Pressure 1: 118/62 Code: 8480-6 BMI: 32.4 Code: 18836-3 Heart Rate 1: 80 bpm Height: 5'3" SpO2: 94% Weight: 183 lbs 03/25/2017 Blood Pressure 1: 122/68 Code: 8480-6 BMI: 31.2 Code: 82892-3 Heart Rate 1: 91 bpm Height: 5'3" SpO2: 95% Weight: 176 lbs 12/16/2016 Blood Pressure 1: 148/82 Code: 8480-6 Heart Rate 1: 77 bpm Height: 5'3" SpO2: 96% 12/05/2016 Blood Pressure 1: 138/72 Code: 8480-6 Heart Rate 1: 84 bpm Height: 5'3" SpO2: 92% Weight: 10/22/2016 Blood Pressure 1: 136/78 Code: 8480-6 BMI: 30.1 Code: 04158-6 Heart Rate 1: 70 bpm Height: 5'3" SpO2: 95% Weight: 170 lbs 09/25/2016 Blood Pressure 1: 122/72 Code: 8480-6 BMI: 29.8 Code: 85459-4 Heart Rate 1: 67 bpm Height: 5'3" SpO2: 97% Weight: 168 lbs 05/29/2016 Blood Pressure 1: 112/70 Code: 8480-6 BMI: 27.8 Code: 69799-7 Heart Rate 1: 102 bpm Height: 5'3" SpO2: 98% Weight: 157 lbs 04/19/2016 Blood Pressure 1: 128/58 Code: 8480-6 BMI: 28.5 Code: 64258-9 Heart Rate 1: 85 bpm Height: 5'3" SpO2: 98% Waist Measure (cm): 81 cm Weight: 161 lbs 04/17/2016 Blood Pressure 1: 128/82 Code: 8480-6 BMI: 28.5 Code: 28381-0 Heart Rate 1: 85 bpm Height: 5'3" SpO2: 98% Weight: 161 lbs 10/12/2015 Blood Pressure 1: 124/68 Code: 8480-6 BMI: 28.2 Code: 36916-6 Heart Rate 1: 72 bpm Height: 5'3" SpO2: 98% Weight: 159 lbs 07/11/2015 Blood Pressure 1: 128/88 Code: 8480-6 BMI: 28.5 Code: 15306-5 Heart Rate 1: 73 bpm Height: 5'3" SpO2: 93% Weight: 161 lbs 05/16/2015 Blood Pressure 1: 120/82 Code: 8480-6 BMI: 28.3 Code: 94103-3 Heart Rate 1: 82 bpm Height: 5'3" SpO2: 93% Weight: 160 lbs 11/03/2014 Blood Pressure 1: 132/74 Code: 8480-6 BMI: 27.6 Code: 61169-5 Heart Rate 1: 80 bpm Height: 5'3" SpO2: 98% Weight: 156 lbs Functional Status No Functional Status data History of Present Illness Symptom Name Status Resu lt Effective Date Notes Location in the lung 09/08/2018 None Location [...] Encounters Encounter Performer Loca tion Codes Date ([id number]) [id number] EST. P ATIENT, LEVEL III Diagnosis: Cough[ICD10: R05] Diagnosis: Acute bronchitis, unspecified[ICD10: J20.9] [facility] CPT-4: 55289 09/08/2018 ([id number]) 51992 EST. P ATIENT, LEVEL IV Diagnosis: Essential (primary) hypertension[ICD10: I10] Diagnosis: Pain in right hip[ICD10: M25.551] Diagnosis: Low back pain[ICD10: M54.5] [facility] CPT-4: 38060 06/18/2018 ([id number]) 05337 EST. P ATIENT, LEVEL III Diagnosis: Acute bronchitis due to other specified organisms[ICD10: J20.8] Diagnosis: Cough[ICD10: R05] [facility] CPT-4: 70696 02/18/2018 ([id number]) [id number] EST. P ATIENT, LEVEL IV Diagnosis: Essential (primary) hypertension[ICD10: I10] Diagnosis: Low back pain[ICD10: M54.5] Diagnosis: Spinal stenosis, lumbosacral region[ICD10: M48.07] Diagnosis: Mixed hyperlipidemia[ICD10: E78.2] [facility] CPT- 4: 13087 01/08/2018 ([id number]) 15668 EST. P ATIENT, LEVEL IV Diagnosis: Essential (primary) hypertension[ICD10: I10] Diagnosis: Low back pain[ICD10: M54.5] Diagnosis: Spinal stenosis, lumbosacral region[ICD10: M48.07] Tamara Jones MD, [facility] CPT-4: 91868 09/09/2017 ([id number]) [id number] EST. P ATIENT, LEVEL IV Diagnosis: Essential (primary) hypertension[ICD10: I10] Diagnosis: Mixed hyperlipidemia[ICD10: E78.2] Diagnosis: Low back pain[ICD10: M54.5] Diagnosis: Pain in right hip[ICD10: M25.551] Diagnosis: Pain in left hip[ICD10: M25.552] Tamara Jones MD, [facility] CPT-4: 92488 03/25/2017 ([id number]) 15071 EST. P ATIENT, LEVEL III Diagnosis: Low back pain[ICD10: M54.5] Diagnosis: Sciatica, left side[ICD10: M54.32] Elina Jones MD, [facility] CPT-4: 06881 12/16/2016 [id number] EST. PATIENT, LEVEL III Diagnosis: Sacroiliitis, not elsewhere classified[ICD10: M46.1] Diagnosis: Sciatica, left side[ICD10: M54.32] Diagnosis: Pain in left hip[ICD10: M25.552] Evelyn Jones MD, [facility] CPT-4: 98724 12/05/2016 ([id number]) [id number] EST. P ATIENT, LEVEL IV Diagnosis: Encounter for screening mammogram for malignant neoplasm of breast[ICD10: Z12.31] Diagnosis: Essential (primary) hypertension[ICD10: I10] Diagnosis: Mixed hyperlipidemia[ICD10: E78.2] Diagnosis: Major depressive disorder, recurrent, mild[ICD10: F33.0] Tamara Jones MD, [facility] CPT-4: 87892 09/25/2016 ([id number]) 79110 EST. P ATIENT, LEVEL IV Diagnosis: Essential (primary) hypertension[ICD10: I10] Diagnosis: Mixed hyperlipidemia[ICD10: E78.2] Diagnosis: Major depressive disorder, recurrent, moderate[ICD10: F33.1] Tamara Jones MD, [facility] CPT-4: 83005 05/29/2016 ([id number]) 65723 EST. P ATIENT, LEVEL IV Diagnosis: Essential (primary) hypertension[ICD10: I10] Diagnosis: Mixed hyperlipidemia[ICD10: E78.2] Diagnosis: Pain in right hip[ICD10: M25.551] Diagnosis: Major depressive disorder, recurrent, mild[ICD10: F33.0] Tamara Jones MD, [facility] CPT-4: 10811 04/17/2016 ([id number]) 38655 EST. P ATIENT, LEVEL IV Diagnosis: Essential (primary) hypertension[ICD10: I10] Diagnosis: Low back pain[ICD10: M54.5] Diagnosis: Mixed hyperlipidemia[ICD10: E78.2] Tamara Jones MD, [facility] CPT- 4: 95098 10/12/2015 ([id number]) 99355 EST. P ATIENT, LEVEL III Diagnosis: Essential (primary) hypertension[ICD10: I10] Diagnosis: Mixed hyperlipidemia[ICD10: E78.2] Diagnosis: Vitamin B12 deficiency anemia, unspecified[ICD10: D51.9] Elina Jones MD, [facility] CPT-4: 29967 07/11/2015 ([id number]) 53518 EST. P ATIENT, LEVEL IV Diagnosis: Essential (primary) hypertension[ICD10: I10] Diagnosis: Low back pain[ICD10: M54.5] Diagnosis: Sciatica, right side[ICD10: M54.31] Elina Jones MD, [facility] CPT-4: 82370 05/16/2015 ([id number]) OFFICE [facility], [facility] - LEVEL 4 Diagnosis: ESSENTIAL HYPERTENSION[ICD9: 401.9] Diagnosis: HYPERLIPIDEMIA[ICD9: 272.4] Diagnosis: OSTEOARTH NOS-UNSPEC[ICD9: 715.90] Diagnosis: Sacroiliitis[ICD9: 720.2] Tamara Jones MD, [facility] CPT-4: 62895 11/03/2014 Plan of Care Planned Activity Notes C odes Status Date Visit Plan: Bronchitis - acute case of bronchitis identified. Pt has been given antibiotics, breathing treatments as appropriate, and pt has been instructed to call if symptoms are not improved, or if symptoms acutely worsen. 09/08/2018 Appointment: Elina Rivera WPtel: [address] [place], [place] [phone] (30 min) Complex 09/08/2018 Patient Education: Patient [...] Dr. Zurita. 06/18/2018 Appointment: Tamara Jones WPtel: [address] [place], [place] [phone] (15 min) Moderate 06/18/2018 Patient Education: Patient Medication Summary Completed 06/18/2018 Patient Education: Back Pain Completed 06/18/2018 Appointment: Tamara Jones WPtel: [address] [place], [place] [phone] (15 min) Moderate 06/15/2018 Appointment: Elina Rivera WPtel: [address] [place], [place] [phone] (15 min) Moderate 02/27/2018 Appointment: Elina Rivera WPtel: [address] [place], [place] [phone] (15 min) Moderate 02/23/2018 Visit Plan: Bronchitis - acute case of bronchitis identified. Pt has been given antibiotics, breathing treatments as appropriate, and pt has been instructed to call if symptoms are not improved, or if symptoms acutely worsen. 02/18/2018 Appointment: Tamara Jones WPtel: [phone] [facility] (15 min) Moderate 02/18/2018 Patient Education: Patient Medication Summary Completed 02/18/2018 Appointment: Tamara Jones WPtel: [facility] (15 min) Moderate 02/16/2018 Visit Plan: Hypertension [...] not improving. 01/08/2018 Appointment: Tamara Jones WPtel: [address] [place], [place] [phone] (15 min) Moderate 01/08/2018 Patient Education: Patient [...] mag lab 09/09/2017 Appointment: Tamara Jones [facility]Ptel: [facility] [place] (15 min) Moderate 09/09/2017 Patient Education: Patient Medication Summary Completed 09/09/2017 Care Plan: Referral Order SNOMED-CT : [id number] Pending 09/09/2017 Appointment: Elina Rivera WPtel: [phone] [facility] - Annual Wellness Visit 04/25/2017 Visit Plan: [...] prn. 03/25/2017 Appointment: Tamara Jones WPtel: [phone] [facility] Moderate 03/25/2017 Patient Education: Patient Medication Summary Completed 03/25/2017 Patient Education: Obesity Completed 03/25/2017 Visit Plan: Low back pain-plan to i ncrease gabapentin-use hydrocodone for break through pain-discussed PT-patient to make appt with Dr Aguilera to discuss further treatment options 12/16/2016 Appointment: Elina Rivera [facility]: [phone] [facility] WPtel: [phone] [facility] (30 min) Complex 12/05/2016 Patient Education: Patient [...] SSRI 09/25/2016 Appointment: Tamara Jones WPtel: [phone] [facility] (15 min) Moderate 09/25/2016 Patient Education: Patient Medication Summary Completed 09/25/2016 Patient Education: Obesity Completed 09/25/2016 Care Plan: SCREENINGMAMMOGRAPHYDIGITAL LOINC : 47512-2 Pending 09/25/2016 Visit Plan: Hypertension - well [...] continue with antidepressnat as prescribed. 05/29/2016 Appointment: [phone] (15 min) Moderate 05/29/2016 Patient Education: Patient [...] care surrogate. 04/19/2016 Appointment: El[facility] Rivera [facility]: [phone] [facility] [phone] [facility] - Annual Wellness Visit 04/19/2016 Patient [...] depression - rx for SSRI 04/17/2016 Appointment: Crockett Tamara WPtel: [phone] [facility] (15 min) Moderate 04/17/2016 Patient Education: Patient [...] medications. 10/12/2015 Appointment: Tamara Jones WPtel: [phone] [facility] (30 min) Complex 10/12/2015 Patient Education: Patient [...] 07/11/2015 Visit Plan: Hypertension - well con chevylled - continue with current medications, continue with [...] worsen. 11/03/2014 Appointment: [facility] Jones [phone] [place] ([place] New Patient 11/03/2014 Patient [...] pressure readings at home. fasting labs to [facility] . Wound [...]
--- OUTSIDE RECORDS SUMMARY | 2019-09-24 08:46 | XMS REPORT | CCD ---
Author Author Marjorie Jones Organization Tamara Jones MD, [facility] Address [address] [place] [address] Phone Care Team Providers Care Queen Producer Name Role Phone PP Unavailable CCM Unavailable Summary Purpose Interface Exchange Insurance Providers Payer name Policy type / Coverage type Covered green party ID Effective Begin Date Effective End Date [place] [employer] Medicare Part B [id number] Unknown [facility] icare Part B [id number] Un known Family history Mother Diagnosis Age At Onset Diabetes mellitus Type 2 Unknown Father Diagnosis Age At Onset Depression Unknown Hyperlipidemia Unknown Hypertension Unknown Stroke Unknown Coronary Artery Disease Unknown Social History Social History Element Codes Description Effective Dates Marital status Unknown M arried Walter 11/03/2014 Number of children Unknown 0 11/03/2014 Employment Unknown Curre ntly unemployed 11/03/[address]: 9348332 Quit over 10 years ago 199911/03/2014 Alcohol [...] Fill Instructions cefdinir 300 mg capsule RxNorm: 889020 1 Capsule(s) PO BID 09/08/2018 09/14/2018 Active START TOMORROW Ventolin HFA 90 mcg/ actuation aerosol inhaler RxNorm: 662976 2 Puff(s) INH Q4 PRN 09/08/2018 11/06/2018 Ac tive Zithromax Z-Feng 250 mg tablet RxNorm: 862558 1 Tablet(s) PO UD 09/08/2018 09/12/2018 Active START TODAY ceftriaxone 500 mg s olution for injection RxNorm: 3751342 Inj 09/08/2018 09/08/2018 Inactive prednisone 20 mg tablet RxNorm: 788333 2 Tablet(s) PO daily 09/08/2018 09/12/2018 Active START TOMORROW 09/09 Kenalog 40 mg/mL christoph pension for injection RxNorm: 7482548 Milliliter(s) Inj 09/08/2018 09/08/2018 In active gabapentin 100 mg ca psule RxNorm: 894809 TAKE 1 CAPSULE BY SCOTT TH ONCE DAILY IN THE MORNING 08/10/2018 No Stop Date Active lisinopril 10 mg-hyd rochlorothiazide 12.5 mg tablet RxNorm: 120786 TAKE 1 TABLET BY MOUTH ONCE DAILY 07/01/2018 No Stop Date Active hydrocodone 7.5 mg-a cetaminophen 325 mg tablet RxNorm: 999291 1 Tablet(s) PO TID 06/29/2018 07/28/2018 In active memantine 10 mg tablet RxNorm: 743209 1 Tablet(s) PO BID 06/18/2018 01/13/2019 Active Aricept 10 mg tablet RxNorm: 359094 1/2 tab daily x 2 weeks then increase to 1 Tablet(s) PO daily thereafter 06/18/2018 08/11/2019 Active escitalopram 10 mg t ablet RxNorm: 975193 TAKE ONE TABLET BY MO UTH ONCE DAILY IN THE EVENING 06/18/2018 No Stop Date Active gabapentin 100 mg ca psule RxNorm: 375503 TAKE 1 CAPSULE BY SCOTT TH ONCE DAILY IN THE MORNING 06/11/2018 08/09/2018 Inactive Lipitor 20 mg tablet RxNorm: 865236 TAKE ONE TABLET BY MOUTH THREE TIMES [facility] 05/06/2018 No Stop Date Active hydrocodone 7.5 mg-a cetaminophen 325 mg tablet RxNorm: 576525 1 Tablet(s) PO TID 04/30/2018 05/29/2018 In active hydrocodone 7.5 mg-a cetaminophen 325 mg tablet RxNorm: 559022 1 Tablet(s) PO TID 03/26/2018 04/24/2018 In active Ventolin HFA 90 mcg/ actuation aerosol inhaler RxNorm: 874223 2 INH TID x 1 week th en twice daily x 5 days then as needed. 02/18/2018 04/18/2018 Inactive plea se give pt a spacer cefdinir 300 mg capsule RxNorm: 298560 1 Capsule(s) PO BID 02/18/2018 02/24/2018 Inactive prednisone 20 mg tablet RxNorm: 042803 2 Tablet(s) PO daily 02/18/2018 02/22/2018 Inactive memantine 10 mg tablet RxNorm: 057849 1/2 tab nightly x1wk then 1/2tab bid x1w k then 1/2tab am and 1tab hs x1wk then 1 Tablet(s) PO BID 01/08/2018 06/17/2018 Inactive hydrocodone 7.5 mg-a cetaminophen 325 mg tablet RxNorm: 156565 1 Tablet(s) PO TID 01/08/2018 02/06/2018 In active gabapentin 100 mg ca psule RxNorm: 110659 TAKE 1 CAPSULE BY [facility] ONCE DAILY IN THE MORNING 12/24/2017 06/10/2018 Inactive hydrocodone 7.5 mg-a cetaminophen 325 mg tablet RxNorm: 168245 1-2 Tablet(s) PO Q6 a s needed 12/01/2017 12/22/2017 Inactive diclofenac sodium 75 mg tablet,delayed release RxNorm: 461701 TAKE ONE TABLET BY [facility] TWICE DAILY 11/10/2017 No Stop Date Active hydrocodone 7.5 mg-a cetaminophen 325 mg tablet RxNorm: 085667 1-2 Tablet(s) PO Q6 a s needed 10/17/2017 11/07/2017 Inactive hydrocodone 7.5 mg-a cetaminophen 325 mg tablet RxNorm: 327039 1-2 Tablet(s) PO Q6 a s needed 09/01/2017 09/22/2017 Inactive hydrocodone 7.5 mg-a cetaminophen 325 mg tablet RxNorm: 857320 1-2 Tablet(s) PO Q6 a s needed 08/25/2017 08/31/2017 Inactive hydrocodone 7.5 mg-a cetaminophen 325 mg tablet RxNorm: 162420 1-2 Tablet(s) PO Q6 a s needed 07/14/2017 08/04/2017 Inactive lisinopril 10 mg-hyd rochlorothiazide 12.5 mg tablet RxNorm: 416792 Tablet(s) TAKE ONE TABLET BY MOUTH ONCE DAILY 07/14/2017 06/30/2018 Inactive gabapentin 100 mg ca psule RxNorm: 267943 1 Capsule(s) PO QAM 06/23/2017 12/19/2017 Inactive hydrocodone 7.5 mg-a cetaminophen 325 mg tablet RxNorm: 225522 1-2 Tablet(s) PO Q6 a s needed 05/20/2017 06/10/2017 Inactive Lipitor 20 mg tablet RxNorm: 581045 1 Tablet(s) PO TIW 05/13/2017 05/05/2018 Inactive escitalopram 10 mg t ablet RxNorm: 462560 1 Tablet(s) PO QPM 05/13/2017 05/07/2018 Inactive escitalopram 10 mg t ablet RxNorm: 898297 1 Tablet(s) PO QPM 04/16/2017 05/12/2017 Inactive lisinopril 10 mg-hyd rochlorothiazide 12.5 mg tablet RxNorm: 229118 TAKE ONE TABLET BY MOUTH ONCE DAILY 04/15/2017 07/13/2017 Inactive escitalopram 10 mg t ablet RxNorm: 842841 1 Tablet(s) PO QPM 04/09/2017 04/15/2017 Inactive hydrocodone 7.5 mg-a cetaminophen 325 mg tablet RxNorm: 805789 1-2 Tablet(s) PO Q6 a s needed 03/17/2017 04/07/2017 Inactive hydrocodone 7.5 mg-a cetaminophen 325 mg tablet RxNorm: 045990 1-2 Tablet(s) PO Q6 a s needed 12/27/2016 01/17/2017 Inactive gabapentin 100 mg ca psule RxNorm: 772416 1 Capsule(s) PO QAM 12/16/2016 06/13/2017 Inactive prednisone 20 mg tablet RxNorm: 803390 2 Tablet(s) PO daily 12/06/2016 12/05/2016 Inactive prednisone 20 mg tablet RxNorm: 023006 2 Tablet(s) PO daily 12/06/2016 12/15/2016 Inactive Kenalog 40 mg/mL christoph pension for injection RxNorm: 7927236 1 Milliliter(s) Inj 12/05/2016 12/05/2016 In active diclofenac sodium 75 mg tablet,delayed release RxNorm: 467759 1 Tablet(s) PO BID 10/30/2016 10/24/2017 In active hydrocodone 7.5 mg-a cetaminophen 325 mg tablet RxNorm: 451391 1-2 Tablet(s) PO Q6 a s needed 10/23/2016 11/13/2016 Inactive hydrocodone 7.5 mg-a cetaminophen 325 mg tablet RxNorm: 021838 1-2 Tablet(s) PO Q6 a s needed 08/16/2016 09/06/2016 Inactive lisinopril 10 mg-hyd rochlorothiazide 12.5 mg tablet RxNorm: 745328 TAKE ONE TABLET BY MOUTH ONCE DAILY 06/07/2016 04/14/2017 Inactive Lipitor 40 mg tablet RxNorm: 788507 1 Tablet(s) PO TIW 05/31/2016 05/01/2017 Inactive Lipitor 20 mg tablet RxNorm: 966321 1 Tablet(s) PO TIW 05/29/2016 05/30/2016 Inactive hydrocodone 7.5 mg-a cetaminophen 325 mg tablet RxNorm: 712228 1-2 Tablet(s) PO Q6 a s needed 05/23/2016 06/13/2016 Inactive escitalopram 10 mg t ablet RxNorm: 923896 1 Tablet(s) PO QPM st art at 1/2 pill nightly x 1wk then a full pill thereafter 04/17/2016 04/08/2017 Inactive hydrocodone 7.5 mg-a cetaminophen 325 mg tablet RxNorm: 144676 1-2 Tablet(s) PO Q6 a s needed 02/28/2016 03/20/2016 Inactive hydrocodone 7.5 mg-a cetaminophen 325 mg tablet RxNorm: 481994 1-2 Tablet(s) PO Q6 a s needed 12/04/2015 12/25/2015 Inactive diclofenac sodium 75 mg tablet,delayed release RxNorm: 545863 1 Tablet(s) PO BID 10/23/2015 10/16/2016 In active hydrocodone 7.5 mg-a cetaminophen 325 mg tablet RxNorm: 318482 1-2 Tablet(s) PO Q6 a s needed 09/12/2015 12/03/2015 Inactive promethazine 25 mg t ablet RxNorm: 793434 1 Tablet(s) PO Q6 as needed 08/30/2015 No Stop Date Active lisinopril 10 mg-hyd rochlorothiazide 12.5 mg tablet RxNorm: 377388 1 Tablet(s) PO daily 05/09/2015 05/02/2016 Inactive hydrocodone 7.5 mg-a cetaminophen 325 mg tablet RxNorm: 441394 1-2 Tablet(s) PO Q6 a s needed 04/17/2015 09/11/2015 Inactive lisinopril 10 mg-hyd rochlorothiazide 12.5 mg tablet RxNorm: 881358 1 Tablet(s) PO daily 01/31/2015 05/08/2015 Inactive hydrocodone 7.5 mg-a cetaminophen 325 mg tablet RxNorm: 616610 1-2 Tablet(s) PO Q6 a s needed 01/18/2015 04/16/2015 Inactive diclofenac sodium 75 mg tablet,delayed release RxNorm: 564918 1 Tablet(s) PO BID 01/18/2015 10/14/2015 In active Voltaren 1 % topical gel RxNorm: 757275 4 Gram(s) TOP QID chelsie ly to sacroiliac joint 11/03/2014 05/15/2015 In active lisinopril 10 mg-hyd rochlorothiazide 12.5 mg tablet RxNorm: 658373 1 Tablet(s) PO daily 11/03/2014 12/02/2014 Inactive B-12 Plus sublingual RxNorm: 89890 sublingual No Start Date Active amoxicillin 500 mg c apsule RxNorm: 217239 4 Capsule(s) PO as do ctor directed 1 hours before appt No Start Date Active gabapentin 300 mg ca psule RxNorm: 063333 1 Capsule(s) PO QHS No Start Date Active promethazine 25 mg t ablet RxNorm: 426411 1 Tablet(s) PO Q6 as needed No Start Date 08/29/2015 Inactive diclofenac sodium 75 mg tablet,delayed release RxNorm: 474083 1 Tablet(s) PO BID No Start Date 01/17/2015 Inactive hydrocodone 7.5 mg-a cetaminophen 325 mg tablet RxNorm: 313800 1-2 Tablet(s) PO Q6 a s needed No Start Date 01/17/2015 Inactive Crestor 5 mg tablet RxNorm: 044202 1 Tablet(s) PO 3 x week No Start Date 05/28/2016 Inactive Medication Administered Medication Codes Instruc tions Start Date Status ceftriaxone 500 mg solution for injection RxNorm: 4581113 09/08/2018 Active Kenalog 40 mg/mL suspension for injection RxNorm: 2828292 Milliliter 09/08/2018 Ac tive Kenalog 40 mg/mL suspension for injection RxNorm: 4665547 1Milliliter 12/05/2016 N o longer Active Immunizations [...] Item Item Code Result Date Comp Metabolic Tqy562 NA 140 mEq/L 01/14/2018 Comp Metabolic Mcv466 K 3.8 mEq/L 01/14/2018 Comp Metabolic Gca044 CL 101 mEq/L 01/14/2018 Comp Metabolic Tqj281 CO2 30.0 mEq/L 01/14/2018 Comp Metabolic Bun622 AN ION GAP 13 01/14/2018 Comp Metabolic Ldo725 GL UCOSE 89 mg/dL 01/14/2018 Comp Metabolic Zts723 Cr eat 1.0 mg/dL 01/14/2018 Comp Metabolic Ioi508 eG FR 63 ml/min/1.73m2 01/14 Comp Metabolic Usk986 BUN 16 mg/dL 01/14/2018 Comp Metabolic Oxc950 B/ C Ratio 16.8 Ratio 01/14/2018 Comp Metabolic Tpj744 CA LCIUM 9.2 mg/dL 01/14/2018 Comp Metabolic Nfr335 AL K PHOS 88 U/L 01/14/2018 Comp Metabolic Awv746 T(SGOT) 13 U/L 01/14/2018 Comp Metabolic Nsx810 AL T(SGPT) 9 U/L 01/14/2018 Comp Metabolic Quu184 BI LI T 0.5 mg/dL 01/14/2018 Comp Metabolic Umm193 AL BUMIN 4.0 g/dL 01/14/2018 Comp Metabolic Qay335 TP RO 6.5 g/dL 01/14/2018 Comp Metabolic Goi233 GL OB 2.5 g/dL 01/14/2018 Comp Metabolic Uee493 A/ G Ratio 1.6 Ratio 01/14/2018 Comp Metabolic Lrc649 Os mo 280 mOsmo 01/14/2018 Tsh Ord6 [...] 31.5 pg 01/14/2018 Cbc With Differential Ord2 Bradford% 8.5 % 01/14/2018 Cbc With Differential Ord2 [...] 3.44 K/ul 01/14/2018 Cbc With Differential Ord2 Bradford ABS# 0.9 K/ul 01/14/2018 Cbc With Differential [...] 31.0 pg 09/10/2017 Cbc With Differential Ord2 Bradford% 9.2 % 09/10/2017 Cbc With Differential Ord2 [...] 1.82 K/ul 09/10/2017 Cbc With Differential Ord2 Bradford ABS# 0.5 K/ul 09/10/2017 Cbc With Differential Ord2 Eos ABS# 0.1 K/ul 09/10/2017 Cbc With Differential Ord2 Baso ABS# 0.0 K/ul 09/10/2017 Tsh Ord6 TSH (3rd IS) 1.22 uIU/mL 09/10/2017 Comp Metabolic Tcz965 NA 140 mEq/L 09/10/2017 Comp Metabolic Hxx367 K 4.2 mEq/L 09/10/2017 Comp Metabolic Epq529 CL 107 mEq/L 09/10/2017 Comp Metabolic Mwp994 CO2 25.0 mEq/L 09/10/2017 Comp Metabolic Bim478 AN ION GAP 12 09/10/2017 Comp Metabolic Bdu628 GL UCOSE 84 mg/dL 09/10/2017 Comp Metabolic Nyr729 Cr eat 0.7 mg/dL 09/10/2017 Comp Metabolic Rir747 eG FR 85 ml/min/1.73m2 09/10 Comp Metabolic Zzp906 BUN 11 mg/dL 09/10/2017 Comp Metabolic Zpa138 B/ C Ratio 15.1 Ratio 09/10/2017 Comp Metabolic Dji763 CA LCIUM 9.1 mg/dL 09/10/2017 Comp Metabolic Xgt786 AL K PHOS 61 U/L 09/10/2017 Comp Metabolic Oxy364 T(SGOT) 38 U/L 09/10/2017 Comp Metabolic Fgt584 AL T(SGPT) 24 U/L 09/10/2017 Comp Metabolic Jtz045 BI LI T 0.5 mg/dL 09/10/2017 Comp Metabolic Ilj309 AL BUMIN 4.0 g/dL 09/10/2017 Comp Metabolic Qbg376 TP RO 6.6 g/dL 09/10/2017 Comp Metabolic Hzq259 GL OB 2.6 g/dL 09/10/2017 Comp Metabolic Ijj436 A/ G Ratio 1.6 Ratio 09/10/2017 Comp Metabolic Lzt408 Os mo 278 mOsmo 09/10/2017 Lipid Ord30 CHOL 148 mg/dL 09/10/2017 Lipid Ord30 HDL 41.0 mg/dl 09/10/2017 Lipid Ord30 TRIG 66 mg/dL 09/10/2017 Lipid Ord30 LDL 94 mg/dL 09/10/2017 Lipid Ord30 C/HDL 3.6 Ratio 09/10/2017 Tsh Ord6 hTSH II 1.57 uIU/mL 09/25/2016 Comp Metabolic Dqi903 NA 139 mEq/L 09/25/2016 Comp Metabolic Bms797 K 4.5 mEq/L 09/25/2016 Comp Metabolic Ffm810 CL 102 mEq/L 09/25/2016 Comp Metabolic Cfi077 CO2 29.0 mEq/L 09/25/2016 Comp Metabolic Smt060 AN ION GAP 13 09/25/2016 Comp Metabolic Bno697 GL UCOSE 84 mg/dL 09/25/2016 Comp Metabolic Coe829 Cr eat 0.9 mg/dL 09/25/2016 Comp Metabolic Hio151 eG FR 70 ml/min/1.73m2 09/25 Comp Metabolic Gph312 BUN 21 mg/dL 09/25/2016 Comp Metabolic Ojs892 B/ C Ratio 24.1 Ratio 09/25/2016 Comp Metabolic Zqm701 CA LCIUM 9.2 mg/dL 09/25/2016 Comp Metabolic Kpb329 AL K PHOS 89 U/L 09/25/2016 Comp Metabolic Uwp951 T(SGOT) 19 U/L 09/25/2016 Comp Metabolic Oed367 AL T(SGPT) 19 U/L 09/25/2016 Comp Metabolic Nxm678 BI LI T 0.5 mg/dL 09/25/2016 Comp Metabolic Xca460 AL BUMIN 4.1 g/dL 09/25/2016 Comp Metabolic Wyk414 TP RO 6.5 g/dL 09/25/2016 Comp Metabolic Pwz367 GL OB 2.4 g/dL 09/25/2016 Comp Metabolic Ink531 A/ G Ratio 1.7 Ratio 09/25/2016 Comp Metabolic Zeb861 Os mo 280 mOsmo 09/25/2016 Cbc With [...] 32.2 pg 09/25/2016 Cbc With Differential Ord2 Bradford% 7.7 % 09/25/2016 Cbc With Differential Ord2 [...] 2.84 K/ul 09/25/2016 Cbc With Differential Ord2 Bradford ABS# 0.7 K/ul 09/25/2016 Cbc With Differential [...] Ord30 C/HDL 5.1 Ratio 04/19/2016 Comp Metabolic Fkk791 NA 135 mEq/L 04/19/2016 Comp Metabolic Kgs749 K 4.2 mEq/L 04/19/2016 Comp Metabolic Mpd894 CL 97 mEq/L 04/19/2016 Comp Metabolic Hug715 CO2 28.0 mEq/L 04/19/2016 Comp Metabolic Fus950 AN ION GAP 14 04/19/2016 Comp Metabolic Xcu370 GL UCOSE 89 mg/dL 04/19/2016 Comp Metabolic Cgx551 Cr eat 0.8 mg/dL 04/19/2016 Comp Metabolic Cll567 eG FR 77 ml/min/1.73m2 04/19 Comp Metabolic Khw753 BUN 17 mg/dL 04/19/2016 Comp Metabolic Lla421 B/ C Ratio 21.3 Ratio 04/19/2016 Comp Metabolic Aax272 CA LCIUM 9.8 mg/dL 04/19/2016 Comp Metabolic Mcb230 AL K PHOS 89 U/L 04/19/2016 Comp Metabolic Kzq189 T(SGOT) 16 U/L 04/19/2016 Comp Metabolic Grs759 AL T(SGPT) 13 U/L 04/19/2016 Comp Metabolic Isy810 BI LI T 0.4 mg/dL 04/19/2016 Comp Metabolic Buu414 AL BUMIN 4.5 g/dL 04/19/2016 Comp Metabolic Bti562 TP RO 7.2 g/dL 04/19/2016 Comp Metabolic Eyv575 GL OB 2.7 g/dL 04/19/2016 Comp Metabolic Bla965 A/ G Ratio 1.7 Ratio 04/19/2016 Comp Metabolic Zog112 Os mo 271 mOsmo 04/19/2016 Tsh Ord6 [...] 30.9 pg 04/19/2016 Cbc With Differential Ord2 Bradford% 6.4 % 04/19/2016 Cbc With Differential Ord2 [...] 3.43 K/ul 04/19/2016 Cbc With Differential Ord2 Bradford ABS# 0.7 K/ul 04/19/2016 Cbc With Differential [...] 30.8 pg 07/11/2015 Cbc With Differential Ord2 Bradford% 7.8 % 07/11/2015 Cbc With Differential Ord2 [...] 2.75 K/ul 07/11/2015 Cbc With Differential Ord2 Bradford ABS# 0.6 K/ul 07/11/2015 Cbc With Differential Ord2 Eos ABS# 0.4 K/ul 07/11/2015 Cbc With Differential Ord2 Baso ABS# 0.1 K/ul 07/11/2015 Cbc With Differential Ord2 New Analyzer Notice Please note new ref ranges s tarting 05-24-2015 due to implemntation of new five part differential hematolgy analyzer. 07/11/2015 Comp Metabolic Zxj466 NA 137 mEq/L 07/11/2015 Comp Metabolic Dam492 K 4.4 mEq/L 07/11/2015 Comp Metabolic Ump247 CL 100 mEq/L 07/11/2015 Comp Metabolic Ejt595 CO2 25.0 mEq/L 07/11/2015 Comp Metabolic Gcw218 AN ION GAP 16 07/11/2015 Comp Metabolic Yjw611 GL UCOSE 75 mg/dL 07/11/2015 Comp Metabolic Xpi760 Cr eat 0.8 mg/dL 07/11/2015 Comp Metabolic Dyq055 eG FR 76 ml/min/1.73m2 07/10 Comp Metabolic Kbz044 BUN 18 mg/dL 07/11/2015 Comp Metabolic Xga061 B/ C Ratio 22.2 Ratio 07/11/2015 Comp Metabolic Tku288 CA LCIUM 9.5 mg/dL 07/11/2015 Comp Metabolic Xzj118 AL K PHOS 92 U/L 07/11/2015 Comp Metabolic Dby797 T(SGOT) 16 U/L 07/11/2015 Comp Metabolic Iob449 AL T(SGPT) 18 U/L 07/11/2015 Comp Metabolic Kyn872 BI LI T 0.6 mg/dL 07/11/2015 Comp Metabolic Wlo951 AL BUMIN 4.3 g/dL 07/11/2015 Comp Metabolic Hjs559 TP RO 6.7 g/dL 07/11/2015 Comp Metabolic Fxz621 GL OB 2.4 g/dL 07/11/2015 Comp Metabolic Nvg629 A/ G Ratio 1.7 Ratio 07/11/2015 Comp Metabolic Wyf372 Os mo 274 mOsmo 07/11/2015 Lipid Ord30 CHOL 197 mg/dL 07/11/2015 Lipid Ord30 HDL 55.0 mg/dl 07/11/2015 Lipid Ord30 TRIG 126 mg/dL 07/11/2015 Lipid Ord30 LDL 117 mg/dL 07/11/2015 Lipid Ord30 C/HDL 3.6 Ratio 07/11/2015 B12 Ypn238 B12 >1500.00 pg/ml 07/11/2015 Review of Systems [...] CPT-4: J0696 09/08/2018 DRAIN/INJECT JOINT/B URSA CPT-4: 64137 12/05/2016 TRIAMCINOLONE ACET I [place] NOS CPT-4: J3301 12/05/2016 DESTRUCT PREMALG LESION CPT-4: 65304 10/22/2016 PPPS, SUBSEQ VISIT CPT- 4: G0439 04/19/2016 Vital Signs Date Vital 09/08/2018 Blood Pressure 1: 136/78 Code: 8480-6 BMI: 33.7 Code: 24767-6 Heart Rate 1: 53 bpm Height: 5'3" SpO2: 95% Temperature: 36.4 (C ) / 97.5 (F) Weight: 190 lbs 06/18/2018 Blood Pressure 1: 130/70 Code: 8480-6 BMI: 33.5 Code: 35685-9 Heart Rate 1: 72 bpm Height: 5'3" SpO2: 97% Weight: 189 lbs 02/18/2018 Blood Pressure 1: 100/52 Code: 8480-6 BMI: 31.9 Code: 21737-3 Heart Rate 1: 92 bpm Height: 5'3" SpO2: 90% Temperature: 36.6 (C ) / 97.9 (F) Weight: 180 lbs 01/08/2018 Blood Pressure 1: 140/80 Code: 8480-6 BMI: 32.6 Code: 90143-1 Heart Rate 1: 82 bpm Height: 5'3" SpO2: 92% Weight: 184 lbs 09/09/2017 Blood Pressure 1: 118/62 Code: 8480-6 BMI: 32.4 Code: 15908-1 Heart Rate 1: 80 bpm Height: 5'3" SpO2: 94% Weight: 183 lbs 03/25/2017 Blood Pressure 1: 122/68 Code: 8480-6 BMI: 31.2 Code: 12707-6 Heart Rate 1: 91 bpm Height: 5'3" SpO2: 95% Weight: 176 lbs 12/16/2016 Blood Pressure 1: 148/82 Code: 8480-6 Heart Rate 1: 77 bpm Height: 5'3" SpO2: 96% 12/05/2016 Blood Pressure 1: 138/72 Code: 8480-6 Heart Rate 1: 84 bpm Height: 5'3" SpO2: 92% Weight: 10/22/2016 Blood Pressure 1: 136/78 Code: 8480-6 BMI: 30.1 Code: 88468-3 Heart Rate 1: 70 bpm Height: 5'3" SpO2: 95% Weight: 170 lbs 09/25/2016 Blood Pressure 1: 122/72 Code: 8480-6 BMI: 29.8 Code: 85086-3 Heart Rate 1: 67 bpm Height: 5'3" SpO2: 97% Weight: 168 lbs 05/29/2016 Blood Pressure 1: 112/70 Code: 8480-6 BMI: 27.8 Code: 37770-3 Heart Rate 1: 102 bpm Height: 5'3" SpO2: 98% Weight: 157 lbs 04/19/2016 Blood Pressure 1: 128/58 Code: 8480-6 BMI: 28.5 Code: 40076-9 Heart Rate 1: 85 bpm Height: 5'3" SpO2: 98% Waist Measure (cm): 81 cm Weight: 161 lbs 04/17/2016 Blood Pressure 1: 128/82 Code: 8480-6 BMI: 28.5 Code: 95818-3 Heart Rate 1: 85 bpm Height: 5'3" SpO2: 98% Weight: 161 lbs 10/12/2015 Blood Pressure 1: 124/68 Code: 8480-6 BMI: 28.2 Code: 39940-1 Heart Rate 1: 72 bpm Height: 5'3" SpO2: 98% Weight: 159 lbs 07/11/2015 Blood Pressure 1: 128/88 Code: 8480-6 BMI: 28.5 Code: 40347-0 Heart Rate 1: 73 bpm Height: 5'3" SpO2: 93% Weight: 161 lbs 05/16/2015 Blood Pressure 1: 120/82 Code: 8480-6 BMI: 28.3 Code: 48175-8 Heart Rate 1: 82 bpm Height: 5'3" SpO2: 93% Weight: 160 lbs 11/03/2014 Blood Pressure 1: 132/74 Code: 8480-6 BMI: 27.6 Code: 52926-3 Heart Rate 1: 80 bpm Height: 5'3" [...] Encounters Encounter Performer Loca tion Codes Date ([id number]) 24824 EST. P ATIENT, LEVEL III Diagnosis: Cough[ICD10: R05] Diagnosis: Acute bronchitis, unspecified[ICD10: J20.9] Elina Jones MD, [facility] CPT-4: 56986 09/08/2018 ([id number]) 03954 EST. P ATIENT, LEVEL IV Diagnosis: Essential (primary) hypertension[ICD10: I10] Diagnosis: Pain in right hip[ICD10: M25.551] Diagnosis: Low back pain[ICD10: M54.5] Tamara Jones MD, [facility] CPT-4: 31035 06/18/2018 ([id number]) 70054 EST. P ATIENT, LEVEL III Diagnosis: Acute bronchitis due to other specified organisms[ICD10: J20.8] Diagnosis: Cough[ICD10: R05] Tamara Jones MD, [facility] CPT-4: 51329 02/18/2018 ([id number]) 27957 EST. P ATIENT, LEVEL IV Diagnosis: Essential (primary) hypertension[ICD10: I10] Diagnosis: Low back pain[ICD10: M54.5] Diagnosis: Spinal stenosis, lumbosacral region[ICD10: M48.07] Diagnosis: Mixed hyperlipidemia[ICD10: E78.2] [facility] CPT- 4: 10327 01/08/2018 ([id number]) 72266 EST. P ATIENT, LEVEL IV Diagnosis: Essential (primary) hypertension[ICD10: I10] Diagnosis: Low back pain[ICD10: M54.5] Diagnosis: Spinal stenosis, lumbosacral region[ICD10: M48.07] Tamara Jones MD, [facility] CPT-4: 33832 09/09/2017 ([id number]) 50686 EST. P ATIENT, LEVEL IV Diagnosis: Essential (primary) hypertension[ICD10: I10] Diagnosis: Mixed hyperlipidemia[ICD10: E78.2] Diagnosis: Low back pain[ICD10: M54.5] Diagnosis: Pain in right hip[ICD10: M25.551] Diagnosis: Pain in left hip[ICD10: M25.552] Tamara Jones MD, [facility] CPT-4: 46000 03/25/2017 ([id number]) 36429 EST. P ATIENT, LEVEL III Diagnosis: Low back pain[ICD10: M54.5] Diagnosis: Sciatica, left side[ICD10: M54.32] Elina Jones MD, [facility] CPT-4: 48822 12/16/2016 [id number] EST. PATIENT, LEVEL III Diagnosis: Sacroiliitis, not elsewhere classified[ICD10: M46.1] Diagnosis: Sciatica, left side[ICD10: M54.32] Diagnosis: Pain in left hip[ICD10: M25.552] Evelyn Jones MD, [facility] CPT-4: 46769 12/05/2016 ([id number]) 22719 EST. P ATIENT, LEVEL IV Diagnosis: Encounter for screening mammogram for malignant neoplasm of breast[ICD10: Z12.31] Diagnosis: Essential (primary) hypertension[ICD10: I10] Diagnosis: Mixed hyperlipidemia[ICD10: E78.2] Diagnosis: Major depressive disorder, recurrent, mild[ICD10: F33.0] Tamara Jones MD, [facility] CPT-4: 12716 09/25/2016 ([id number]) 35156 EST. P ATIENT, LEVEL IV Diagnosis: Essential (primary) hypertension[ICD10: I10] Diagnosis: Mixed hyperlipidemia[ICD10: E78.2] Diagnosis: Major depressive disorder, recurrent, moderate[ICD10: F33.1] Tamara Jones MD, [facility] CPT-4: 92007 05/29/2016 ([id number]) 45440 EST. P ATIENT, LEVEL IV Diagnosis: Essential (primary) hypertension[ICD10: I10] Diagnosis: Mixed hyperlipidemia[ICD10: E78.2] Diagnosis: Pain in right hip[ICD10: M25.551] Diagnosis: Major depressive disorder, recurrent, mild[ICD10: F33.0] Tamara Jones MD [facility] CPT-4: 64908 04/17/2016 ([id number]) 50087 EST. P ATIENT, LEVEL IV Diagnosis: Essential (primary) hypertension[ICD10: I10] Diagnosis: Low back pain[ICD10: M54.5] Diagnosis: Mixed hyperlipidemia[ICD10: E78.2] Tamara Jones MD, [facility] CPT- 4: 92919 10/12/2015 ([id number]) 13819 EST. P ATIENT, LEVEL III Diagnosis: Essential (primary) hypertension[ICD10: I10] Diagnosis: Mixed hyperlipidemia[ICD10: E78.2] Diagnosis: Vitamin B12 deficiency anemia, unspecified[ICD10: D51.9] Elina Jones MD, [facility] CPT-4: 67478 07/11/2015 ([id number]) [id number] EST. P ATIENT, LEVEL IV Diagnosis: Essential (primary) hypertension[ICD10: I10] Diagnosis: Low back pain[ICD10: M54.5] Diagnosis: Sciatica, right side[ICD10: M54.31] Elina Jones MD, [facility] CPT-4: 27036 05/16/2015 ([id number]) OFFICE VISI , [facility] - LEVEL 4 Diagnosis: ESSENTIAL HYPERTENSION[ICD9: 401.9] Diagnosis: HYPERLIPIDEMIA[ICD9: 272.4] Diagnosis: OSTEOARTH NOS-UNSPEC[ICD9: 715.90] Diagnosis: Sacroiliitis[ICD9: 720.2] Tamara Jones MD, [facility] CPT-4: 84709 11/03/2014 Plan of Care Planned Activity Notes C odes Status Date Visit Plan: Bronchitis - acute case of bronchitis identified. Pt has been given antibiotics, breathing treatments as appropriate, and pt has been instructed to call if symptoms are not improved, or if symptoms acutely worsen. 09/08/2018 Patient Education: Patient Medication Summary Completed [...] [place]. 06/18/2018 Appointment: Tamara Jones WPtel: [phone] (15 min) Moderate 06/18/2018 Patient Education: Patient Medication Summary Completed 06/18/2018 Patient Education: Back Pain Completed 06/18/2018 Appointment: Tamara Jones WPtel: [phone] [phone] [place] (15 min) Moderate 06/15/2018 Appointment: Elina Rivera WPtel: [phone] [phone] [place] (15 min) Moderate 02/27/2018 Appointment: Elina Rivera WPtel: [phone] [place] [phone] [place] (15 min) Moderate 02/23/2018 Visit Plan: Bronchitis - acute case of bronchitis identified. Pt has been given antibiotics, breathing treatments as appropriate, and pt has been instructed to call if symptoms are not improved, or if symptoms acutely worsen. 02/18/2018 Appointment: Tamara Jones WPtel: [phone] [facility] (15 min) Moderate 02/18/2018 Patient Education: Patient Medication Summary Completed 02/18/2018 [facility]ment: [phone] (15 min) Moderate 02/16/2018 Visit Plan: Hypertension [...] not improving. 01/08/2018 Appointment: Tamara Jones WPtel: [facility] (15 min) Moderate 01/08/2018 Patient Education: [...] mag lab 09/09/2017 Appointment: Tamara Jones [facility]Ptel[facility] (15 min) Moderate 09/09/2017 Patient Education: Patient Medication Summary Completed 09/09/2017 Care Plan: Referral Order SNOMED-CT : [id number] Pending 09/09/2017 Appointment: Elina Rivera WPtel: [facility]3 [phone] [facility] - Annual Wellness Visit 04/25/2017 Visit [...] prn. 03/25/2017 Appointment: Tamara Jones WPtel: [phone] [facility] [place] (15 min) Moderate 03/25/2017 Patient Education: Patient Medication Summary Completed 03/25/2017 Patient Education: Obesity Completed 03/25/2017 Visit Plan: Low back pain-plan to i ncrease gabapentin-use hydrocodone for break through pain-discussed PT-patient to make appt with Dr Aguilera to discuss further treatment options 12/16/2016 Appointment: Elina Rivera WPtel: [phone] [phone] [place] (15 min) Moderate 12/16/2016 Patient Education: Patient [...] worsen. 12/05/2016 Appointment: Evelyn Orosco WPtel: [phone] [facility] [place] (30 min) Complex 12/05/2016 Patient Education: Patient Medication Summary Completed 12/05/2016 Visit Plan: Wound Instructions - Pt was instructed to keep the wound clean, wash with antibacterial soap, use triple antibiotic ointment, call if redness, pustular drainage, or any other acute concerns. 10/22/2016 Appointment: Elina Rivera WPtel: [phone] [phone] (15 min) Moderate 10/22/2016 Patient Education: Patient [...] SSRI 09/25/2016 Appointment: Tamara Jones WPtel: [phone] [facility] (15 min) Moderate 09/25/2016 Patient Education: Patient Medication Summary Completed 09/25/2016 Patient Education: Obesity Completed 09/25/2016 Care Plan: SCREENINGMAMMOGRAPHYDIGITAL LOINC : 87541-6 Pending 09/25/2016 Visit Plan: Hypertension - well [...] prescribed. 05/29/2016 App[facility]ment: [phone] (15 min) Moderate 05/29/2016 Patient Education: Patient [...] 04/19/2016 [phone] [facility] - Annual Wellness Visit 04/19/2016 Patient [...] depression - rx for SSRI 04/17/2016 Appointment: [phone] (15 min) Moderate 04/17/2016 Patient Education: Patient [...] medications. 10/12/2015 Appointment: [phone] (30 min) Complex 10/12/2015 Patient Education: Patient [...] they worsen. 11/03/2014 Appointment: Tamara Jones WPtel: [address] [place], [place] [address] [place] (S) New Patient 11/03/2014 Patient Education: [...] pressure readings at home. fasting labs to [facility] . Wound Instructions - Pt was [...]
--- OUTSIDE RECORDS SUMMARY | 2019-09-24 08:47 | XMS REPORT | CCD ---
Author Author Marjorie Jones Organization Tamara Jones MD, [facility] Address [address] [place] [address] Phone Care Team Providers Care Supervisor Tumblers Name Role Phone PP Unavailable CCM Unavailable Summary Purpose Interface Exchange Insurance Providers Payer name Policy type / Coverage type Covered democrat ID Effective Begin Date Effective End Date [place] [employer] Medicare Part B [id number] Unknown [facility] icare Part B [id number] Un known Family history Mother Diagnosis Age At Onset Diabetes mellitus Type 2 Unknown Father Diagnosis Age At Onset Depression Unknown Hyperlipidemia Unknown Hypertension Unknown Stroke Unknown Coronary Artery Disease Unknown Social History Social History Element Codes Description Effective Dates Marital status Unknown M arried Walter 11/03/2014 Number of children Unknown 0 11/03/2014 Employment Unknown Curre ntly unemployed 11/03/[address]: 8672447 Quit over 10 years ago 199911/03/2014 Alcohol history Unknown occasionally drinks alcohol 2 per month 11/03/2014 Allergies, Adverse Reactions, Alerts Substance Reaction Codes Entered Date Inactivated Date Status * NO KNOWN DRUG DAVID RGIES Unknown 11/03/2014 No Inactive Date Active Past Medical History Illness Codes Condition Status Onset Date Resolved Date Essential (primary) hypertension ICD-9: 401.1 ICD-10: I10 Active 09/25/2016 Unknown Low back pain ICD-9: 724.2 ICD-10: M54.5 Active 10/11/2015 Unknown Pain in right hip ICD-9: 719.45 ICD-10: M25.551 Active 04/16/2016 Unknown Acute bronchitis due to other specified organisms ICD-9: 466.0 ICD-10: J20.8 Active 02/18/2018 Unknown Cough ICD-9: 786.2 ICD-10: R05 Active 02/18/2018 Unknown Mixed hyperlipidemia ICD-9: 272.4 [...] Condition Codes Effectiv e Dates Condition Status Essential (primary) hypertension ICD-9: 401.1 ICD-10: I10 09/25/2016 Active Low back pain ICD-9: 724.2 ICD-10: M54.5 10/11/2015 Active Pain in right hip ICD-9: 719.45 ICD-10: M25.551 04/16/2016 Active Acute bronchitis due to other specified organisms ICD-9: 466.0 ICD-10: J20.8 02/18/2018 Active Cough ICD-9: 786.2 ICD-10: R05 02/18/2018 Active Mixed hyperlipidemia ICD-9: 272.4 ICD-10: [...] Date Stop Date Sta tus Fill Instructions lisinopril 10 mg-hyd rochlorothiazide 12.5 mg tablet RxNorm: 531805 TAKE 1 TABLET BY MOUTH ONCE DAILY 07/01/2018 No Stop Date Active hydrocodone 7.5 mg-a cetaminophen 325 mg tablet RxNorm: 681886 1 Tablet(s) PO TID 06/29/2018 07/28/2018 Ac tive memantine 10 mg tablet RxNorm: 359162 1 Tablet(s) PO BID 06/18/2018 01/13/2019 Active Aricept 10 mg tablet RxNorm: 299319 1/2 tab daily x 2 weeks then increase to 1 Tablet(s) PO daily thereafter 06/18/2018 08/11/2019 Active escitalopram 10 mg t ablet RxNorm: 816530 TAKE ONE TABLET BY MO UTH ONCE DAILY IN THE EVENING 06/18/2018 No Stop Date Active gabapentin 100 mg ca psule RxNorm: 909260 TAKE 1 CAPSULE BY SCOTT TH ONCE DAILY IN THE MORNING 06/11/2018 No Stop Date Active Lipitor 20 mg tablet RxNorm: 448229 TAKE ONE TABLET BY MOUTH THREE TIMES [facility] 05/06/2018 No Stop Date Active hydrocodone 7.5 mg-a cetaminophen 325 mg tablet RxNorm: 518566 1 Tablet(s) PO TID 04/30/2018 05/29/2018 In active hydrocodone 7.5 mg-a cetaminophen 325 mg tablet RxNorm: 594240 1 Tablet(s) PO TID 03/26/2018 04/24/2018 In active prednisone 20 mg tablet RxNorm: 737643 2 Tablet(s) PO daily 02/18/2018 02/22/2018 Inactive Ventolin HFA 90 mcg/ actuation aerosol inhaler RxNorm: 367238 2 INH TID x 1 week th en twice daily x 5 days then as needed. 02/18/2018 04/18/2018 Inactive plea se give pt a spacer cefdinir 300 mg capsule RxNorm: 606556 1 Capsule(s) PO BID 02/18/2018 02/24/2018 Inactive memantine 10 mg tablet RxNorm: 891849 1/2 tab nightly x1wk then 1/2tab bid x1w k then 1/2tab am and 1tab hs x1wk then 1 Tablet(s) PO BID 01/08/2018 06/17/2018 Inactive hydrocodone 7.5 mg-a cetaminophen 325 mg tablet RxNorm: 993548 1 Tablet(s) PO TID 01/08/2018 02/06/2018 In active gabapentin 100 mg ca psule RxNorm: 232955 TAKE 1 CAPSULE BY SCOTT ONCE DAILY IN THE MORNING 12/24/2017 06/10/2018 Inactive hydrocodone 7.5 mg-a cetaminophen 325 mg tablet RxNorm: 664550 1-2 Tablet(s) PO Q6 a s needed 12/01/2017 12/22/2017 Inactive diclofenac sodium 75 mg tablet,delayed release RxNorm: 100390 TAKE ONE TABLET BY [facility] TWICE DAILY 11/10/2017 No Stop Date Active hydrocodone 7.5 mg-a cetaminophen 325 mg tablet RxNorm: 388652 1-2 Tablet(s) PO Q6 a s needed 10/17/2017 11/07/2017 Inactive hydrocodone 7.5 mg-a cetaminophen 325 mg tablet RxNorm: 089459 1-2 Tablet(s) PO Q6 a s needed 09/01/2017 09/22/2017 Inactive hydrocodone 7.5 mg-a cetaminophen 325 mg tablet RxNorm: 642559 1-2 Tablet(s) PO Q6 a s needed 08/25/2017 08/31/2017 Inactive hydrocodone 7.5 mg-a cetaminophen 325 mg tablet RxNorm: 995351 1-2 Tablet(s) PO Q6 a s needed 07/14/2017 08/04/2017 Inactive lisinopril 10 mg-hyd rochlorothiazide 12.5 mg tablet RxNorm: 735137 Tablet(s) TAKE ONE TABLET BY MOUTH ONCE DAILY 07/14/2017 06/30/2018 Inactive gabapentin 100 mg ca psule RxNorm: 552023 1 Capsule(s) PO QAM 06/23/2017 12/19/2017 Inactive hydrocodone 7.5 mg-a cetaminophen 325 mg tablet RxNorm: 603200 1-2 Tablet(s) PO Q6 a s needed 05/20/2017 06/10/2017 Inactive Lipitor 20 mg tablet RxNorm: 212963 1 Tablet(s) PO TIW 05/13/2017 05/05/2018 Inactive escitalopram 10 mg t ablet RxNorm: 025037 1 Tablet(s) PO QPM 05/13/2017 05/07/2018 Inactive escitalopram 10 mg t ablet RxNorm: 086648 1 Tablet(s) PO QPM 04/16/2017 05/12/2017 Inactive lisinopril 10 mg-hyd rochlorothiazide 12.5 mg tablet RxNorm: 973908 TAKE ONE TABLET BY MOUTH ONCE DAILY 04/15/2017 07/13/2017 Inactive escitalopram 10 mg t ablet RxNorm: 195407 1 Tablet(s) PO QPM 04/09/2017 04/15/2017 Inactive hydrocodone 7.5 mg-a cetaminophen 325 mg tablet RxNorm: 023669 1-2 Tablet(s) PO Q6 a s needed 03/17/2017 04/07/2017 Inactive hydrocodone 7.5 mg-a cetaminophen 325 mg tablet RxNorm: 934601 1-2 Tablet(s) PO Q6 a s needed 12/27/2016 01/17/2017 Inactive gabapentin 100 mg ca psule RxNorm: 377140 1 Capsule(s) PO QAM 12/16/2016 06/13/2017 Inactive prednisone 20 mg tablet RxNorm: 885373 2 Tablet(s) PO daily 12/06/2016 12/05/2016 Inactive prednisone 20 mg tablet RxNorm: 402264 2 Tablet(s) PO daily 12/06/2016 12/15/2016 Inactive Kenalog 40 mg/mL christoph pension for injection RxNorm: 8544954 1 Milliliter(s) Inj 12/05/2016 12/05/2016 In active diclofenac sodium 75 mg tablet,delayed release RxNorm: 188228 1 Tablet(s) PO BID 10/30/2016 10/24/2017 In active hydrocodone 7.5 mg-a cetaminophen 325 mg tablet RxNorm: 016976 1-2 Tablet(s) PO Q6 a s needed 10/23/2016 11/13/2016 Inactive hydrocodone 7.5 mg-a cetaminophen 325 mg tablet RxNorm: 989195 1-2 Tablet(s) PO Q6 a s needed 08/16/2016 09/06/2016 Inactive lisinopril 10 mg-hyd rochlorothiazide 12.5 mg tablet RxNorm: 596017 TAKE ONE TABLET BY MOUTH ONCE DAILY 06/07/2016 04/14/2017 Inactive Lipitor 40 mg tablet RxNorm: 767613 1 Tablet(s) PO TIW 05/31/2016 05/01/2017 Inactive Lipitor 20 mg tablet RxNorm: 025498 1 Tablet(s) PO TIW 05/29/2016 05/30/2016 Inactive hydrocodone 7.5 mg-a cetaminophen 325 mg tablet RxNorm: 001633 1-2 Tablet(s) PO Q6 a s needed 05/23/2016 06/13/2016 Inactive escitalopram 10 mg t ablet RxNorm: 406808 1 Tablet(s) PO QPM st art at 1/2 pill nightly x 1wk then a full pill thereafter 04/17/2016 04/08/2017 Inactive hydrocodone 7.5 mg-a cetaminophen 325 mg tablet RxNorm: 935545 1-2 Tablet(s) PO Q6 a s needed 02/28/2016 03/20/2016 Inactive hydrocodone 7.5 mg-a cetaminophen 325 mg tablet RxNorm: 835811 1-2 Tablet(s) PO Q6 a s needed 12/04/2015 12/25/2015 Inactive diclofenac sodium 75 mg tablet,delayed release RxNorm: 308371 1 Tablet(s) PO BID 10/23/2015 10/16/2016 In active hydrocodone 7.5 mg-a cetaminophen 325 mg tablet RxNorm: 743262 1-2 Tablet(s) PO Q6 a s needed 09/12/2015 12/03/2015 Inactive promethazine 25 mg t ablet RxNorm: 310510 1 Tablet(s) PO Q6 as needed 08/30/2015 No Stop Date Active lisinopril 10 mg-hyd rochlorothiazide 12.5 mg tablet RxNorm: 361048 1 Tablet(s) PO daily 05/09/2015 05/02/2016 Inactive hydrocodone 7.5 mg-a cetaminophen 325 mg tablet RxNorm: 686636 1-2 Tablet(s) PO Q6 a s needed 04/17/2015 09/11/2015 Inactive lisinopril 10 mg-hyd rochlorothiazide 12.5 mg tablet RxNorm: 706185 1 Tablet(s) PO daily 01/31/2015 05/08/2015 Inactive hydrocodone 7.5 mg-a cetaminophen 325 mg tablet RxNorm: 120138 1-2 Tablet(s) PO Q6 a s needed 01/18/2015 04/16/2015 Inactive diclofenac sodium 75 mg tablet,delayed release RxNorm: 103634 1 Tablet(s) PO BID 01/18/2015 10/14/2015 In active Voltaren 1 % topical gel RxNorm: 271476 4 Gram(s) TOP QID chelsie ly to sacroiliac joint 11/03/2014 05/15/2015 In active lisinopril 10 mg-hyd rochlorothiazide 12.5 mg tablet RxNorm: 542439 1 Tablet(s) PO daily 11/03/2014 12/02/2014 Inactive B-12 Plus sublingual RxNorm: 90403 sublingual No Start Date Active amoxicillin 500 mg c apsule RxNorm: 627223 4 Capsule(s) PO as do ctor directed 1 hours before appt No Start Date Active gabapentin 300 mg ca psule RxNorm: 397359 1 Capsule(s) PO QHS No Start Date Active promethazine 25 mg t ablet RxNorm: 542160 1 Tablet(s) PO Q6 as needed No Start Date 08/29/2015 Inactive diclofenac sodium 75 mg tablet,delayed release RxNorm: 522298 1 Tablet(s) PO BID No Start Date 01/17/2015 Inactive hydrocodone 7.5 mg-a cetaminophen 325 mg tablet RxNorm: 990330 1-2 Tablet(s) PO Q6 a s needed No Start Date 01/17/2015 Inactive Crestor 5 mg tablet RxNorm: 529346 1 Tablet(s) PO 3 x week No Start Date 05/28/2016 Inactive Medication Administered Medication Codes Instruc tions Start Date Status Kenalog 40 mg/mL suspension for injection RxNorm: 9445535 1Milliliter 12/05/2016 N o longer Active Immunizations No Immunization data Assessments Condition Codes Effectiv e Dates Low back pain ICD-10: M54.5 ICD-9: 724.2 06/18/2018 Pain in right hip ICD-10: M25.551 ICD-9: 719.45 06/18/2018 Essential (primary) hypertension ICD -10: I10 ICD-9: 401.1 06/18/2018 Cough ICD-10: R05 ICD-9: 786.2 02/18/2018 Acute bronchitis due to other specified organisms ICD-10: J20.8 ICD-9: 466.0 02/18/2018 Mixed hyperlipidemia ICD-10: E78.2 ICD-9: 272.4 01/08/2018 Spinal stenosis, lumbosacral region ICD-10: M48.07 ICD-9: 724.02 01/08/2018 Pain in left hip ICD-10: M25.552 ICD-9: 719.45 03/25/2017 Sciatica, left side ICD-10: M54.32 ICD-9: 724.3 12/16/2016 Sacroiliitis, not elsewhere classified ICD-10: M46.1 ICD-9: 720.2 12/05/2016 Actinic keratosis ICD-10: L57.0 ICD-9: 702.0 10/22/2016 Encounter for screening mammogram for ma lignant neoplasm of breast ICD-10: Z12.31 ICD-9: V76.12 09/25/2016 Mixed hyperlipidemia ICD-10: E78.2 ICD-9: 272.2 09/25/2016 Major depressive disorder, recurrent, mild ICD-10: F33.0 ICD-9: 296.31 09/25/2016 Essential (primary) hypertension ICD -10: I10 [...] Reason For Visit Effective Dates Notes hypertension 06/18/2018 cough 02/18/2018 hypertension 01/08/2018 hypertension 09/09/2017 hypertension 03/25/2017 sciatica 12/16/2016 ongo ing sciatica 12/05/2016 skin lesion 10/22/2016 hypertension 09/25/2016 hypertension 05/29/2016 Annual Medicare Wellness Exam 04/19/2016 hypertension 04/17/2016 back pain 10/12/2015 back pain 07/11/2015 back pain 05/16/2015 hypertension 11/03/2014 Results Observation Observation Code Item Item Code Result Date Lipid Ord30 CHOL 193 mg/dL 01/14/2018 Lipid Ord30 HDL 40.0 mg/dl 01/14/2018 Lipid Ord30 TRIG 185 mg/dL 01/14/2018 Lipid Ord30 LDL 116 mg/dL 01/14/2018 Lipid Ord30 C/HDL 4.8 Ratio 01/14/2018 Comp Metabolic Oud907 NA 140 mEq/L 01/14/2018 Comp Metabolic Lnd658 K 3.8 mEq/L 01/14/2018 Comp Metabolic Wlo914 CL 101 mEq/L 01/14/2018 Comp Metabolic Ksm727 CO2 30.0 mEq/L 01/14/2018 Comp Metabolic Tyt487 AN ION GAP 13 01/14/2018 Comp Metabolic Hcs584 GL UCOSE 89 mg/dL 01/14/2018 Comp Metabolic Lra813 Cr eat 1.0 mg/dL 01/14/2018 Comp Metabolic Cjf675 eG FR 63 ml/min/1.73m2 01/14 Comp Metabolic Fnu179 BUN 16 mg/dL 01/14/2018 Comp Metabolic Tvr519 B/ C Ratio 16.8 Ratio 01/14/2018 Comp Metabolic Sin807 CA LCIUM 9.2 mg/dL 01/14/2018 Comp Metabolic Keh606 AL K PHOS 88 U/L 01/14/2018 Comp Metabolic Fxh967 T(SGOT) 13 U/L 01/14/2018 Comp Metabolic Xwo372 AL T(SGPT) 9 U/L 01/14/2018 Comp Metabolic Hal244 BI LI T 0.5 mg/dL 01/14/2018 Comp Metabolic Jsn826 AL BUMIN 4.0 g/dL 01/14/2018 Comp Metabolic Kxc915 TP RO 6.5 g/dL 01/14/2018 Comp Metabolic Zso220 GL OB 2.5 g/dL 01/14/2018 Comp Metabolic Ndr443 A/ G Ratio 1.6 Ratio 01/14/2018 Comp Metabolic Wrq578 Os mo 280 mOsmo 01/14/2018 Cbc With Differential Ord2 WBC 10.84 [...] 31.5 pg 01/14/2018 Cbc With Differential Ord2 [place]% 8.5 % 01/14/2018 Cbc With Differential Ord2 [...] 3.44 K/ul 01/14/2018 Cbc With Differential Ord2 [place] ABS# 0.9 K/ul 01/14/2018 Cbc With Differential Ord2 Eos ABS# 0.3 K/ul 01/14/2018 Cbc With Differential Ord2 Baso ABS# 0.0 K/ul 01/14/2018 Tsh Ord6 TSH (3rd IS) 2.04 uIU/mL 01/14/2018 Tsh Ord6 TSH (3rd IS) 1.22 uIU/mL 09/10/2017 Comp Metabolic Jkw175 NA 140 mEq/L 09/10/2017 Comp Metabolic Bzx532 K 4.2 mEq/L 09/10/2017 Comp Metabolic Rkb679 CL 107 mEq/L 09/10/2017 Comp Metabolic Dbo035 CO2 25.0 mEq/L 09/10/2017 Comp Metabolic Iyn594 AN ION GAP 12 09/10/2017 Comp Metabolic Lmj307 GL UCOSE 84 mg/dL 09/10/2017 Comp Metabolic Rrn895 Cr eat 0.7 mg/dL 09/10/2017 Comp Metabolic Teb024 eG FR 85 ml/min/1.73m2 09/10 Comp Metabolic Nke126 BUN 11 mg/dL 09/10/2017 Comp Metabolic Rtn249 B/ C Ratio 15.1 Ratio 09/10/2017 Comp Metabolic Ajx624 CA LCIUM 9.1 mg/dL 09/10/2017 Comp Metabolic Ehc121 AL K PHOS 61 U/L 09/10/2017 Comp Metabolic Vzv719 T(SGOT) 38 U/L 09/10/2017 Comp Metabolic Qkh844 AL T(SGPT) 24 U/L 09/10/2017 Comp Metabolic Vle156 BI LI T 0.5 mg/dL 09/10/2017 Comp Metabolic Qgq701 AL BUMIN 4.0 g/dL 09/10/2017 Comp Metabolic Jpg888 TP RO 6.6 g/dL 09/10/2017 Comp Metabolic Aur797 GL OB 2.6 g/dL 09/10/2017 Comp Metabolic Gry291 A/ G Ratio 1.6 Ratio 09/10/2017 Comp Metabolic Tct253 Os mo 278 mOsmo 09/10/2017 Lipid Ord30 CHOL 148 mg/dL 09/10/2017 Lipid Ord30 HDL 41.0 mg/dl 09/10/2017 Lipid Ord30 TRIG 66 mg/dL 09/10/2017 Lipid Ord30 LDL 94 mg/dL 09/10/2017 Lipid Ord30 C/HDL 3.6 Ratio 09/10/2017 Cbc With Differential Ord2 WBC 5.41 K/ul [...] 31.0 pg 09/10/2017 Cbc With Differential Ord2 [place]% 9.2 % 09/10/2017 Cbc With Differential Ord2 [...] 1.82 K/ul 09/10/2017 Cbc With Differential Ord2 [place] ABS# 0.5 K/ul 09/10/2017 Cbc With Differential Ord2 Eos ABS# 0.1 K/ul 09/10/2017 Cbc With Differential Ord2 Baso ABS# 0.0 K/ul 09/10/2017 Lipid Ord30 CHOL 185 mg/dL 09/25/2016 Lipid [...] 32.2 pg 09/25/2016 Cbc With Differential Ord2 [place]% 7.7 % 09/25/2016 Cbc With Differential Ord2 [...] 2.84 K/ul 09/25/2016 Cbc With Differential Ord2 [place] ABS# 0.7 K/ul 09/25/2016 Cbc With Differential Ord2 Eos ABS# 0.3 K/ul 09/25/2016 Cbc With Differential Ord2 Baso ABS# 0.0 K/ul 09/25/2016 Comp Metabolic Pkz322 NA 139 mEq/L 09/25/2016 Comp Metabolic Wkh421 K 4.5 mEq/L 09/25/2016 Comp Metabolic Lhz631 CL 102 mEq/L 09/25/2016 Comp Metabolic Lrv476 CO2 29.0 mEq/L 09/25/2016 Comp Metabolic Dxj206 AN ION GAP 13 09/25/2016 Comp Metabolic Yzs866 GL UCOSE 84 mg/dL 09/25/2016 Comp Metabolic Eje749 Cr eat 0.9 mg/dL 09/25/2016 Comp Metabolic Ddg542 eG FR 70 ml/min/1.73m2 09/25 Comp Metabolic Ckm775 BUN 21 mg/dL 09/25/2016 Comp Metabolic Nux927 B/ C Ratio 24.1 Ratio 09/25/2016 Comp Metabolic Xes399 CA LCIUM 9.2 mg/dL 09/25/2016 Comp Metabolic Knm146 AL K PHOS 89 U/L 09/25/2016 Comp Metabolic Zhn995 T(SGOT) 19 U/L 09/25/2016 Comp Metabolic Vsd822 AL T(SGPT) 19 U/L 09/25/2016 Comp Metabolic Otr196 BI LI T 0.5 mg/dL 09/25/2016 Comp Metabolic Crx915 AL BUMIN 4.1 g/dL 09/25/2016 Comp Metabolic Eya831 TP RO 6.5 g/dL 09/25/2016 Comp Metabolic Pde682 GL OB 2.4 g/dL 09/25/2016 Comp Metabolic Yri756 A/ G Ratio 1.7 Ratio 09/25/2016 Comp Metabolic Cxx022 Os mo 280 mOsmo 09/25/2016 Tsh Ord6 hTSH II 1.57 uIU/mL [...] 30.9 pg 04/19/2016 Cbc With Differential Ord2 [place]% 6.4 % 04/19/2016 Cbc With Differential Ord2 [...] 3.43 K/ul 04/19/2016 Cbc With Differential Ord2 [place] ABS# 0.7 K/ul 04/19/2016 Cbc With Differential Ord2 Eos ABS# 0.2 K/ul 04/19/2016 Cbc With Differential Ord2 Baso ABS# 0.0 K/ul 04/19/2016 Comp Metabolic Tph518 NA 135 mEq/L 04/19/2016 Comp Metabolic Ewn019 K 4.2 mEq/L 04/19/2016 Comp Metabolic Wkg679 CL 97 mEq/L 04/19/2016 Comp Metabolic Fvz724 CO2 28.0 mEq/L 04/19/2016 Comp Metabolic Zzw045 AN ION GAP 14 04/19/2016 Comp Metabolic Xng674 GL UCOSE 89 mg/dL 04/19/2016 Comp Metabolic Mxs105 Cr eat 0.8 mg/dL 04/19/2016 Comp Metabolic Ese964 eG FR 77 ml/min/1.73m2 04/19 Comp Metabolic Fem254 BUN 17 mg/dL 04/19/2016 Comp Metabolic Tlf222 B/ C Ratio 21.3 Ratio 04/19/2016 Comp Metabolic Geq273 CA LCIUM 9.8 mg/dL 04/19/2016 Comp Metabolic Qtc321 AL K PHOS 89 U/L 04/19/2016 Comp Metabolic Zip216 T(SGOT) 16 U/L 04/19/2016 Comp Metabolic Zvf840 AL T(SGPT) 13 U/L 04/19/2016 Comp Metabolic Yof671 BI LI T 0.4 mg/dL 04/19/2016 Comp Metabolic Kgl086 AL BUMIN 4.5 g/dL 04/19/2016 Comp Metabolic Slj301 TP RO 7.2 g/dL 04/19/2016 Comp Metabolic Rxg941 GL OB 2.7 g/dL 04/19/2016 Comp Metabolic Hqe177 A/ G Ratio 1.7 Ratio 04/19/2016 Comp Metabolic Hws235 Os mo 271 mOsmo 04/19/2016 Lipid Ord30 CHOL 283 mg/dL 04/19/2016 Lipid Ord30 HDL 56.0 mg/dl 04/19/2016 Lipid Ord30 TRIG 115 mg/dL 04/19/2016 Lipid Ord30 LDL 204 mg/dL 04/19/2016 Lipid Ord30 C/HDL 5.1 Ratio 04/19/2016 Comp Metabolic Aiw716 NA 137 mEq/L 07/11/2015 Comp Metabolic Uxb449 K 4.4 mEq/L 07/11/2015 Comp Metabolic Gmn636 CL 100 mEq/L 07/11/2015 Comp Metabolic Xah281 CO2 25.0 mEq/L 07/11/2015 Comp Metabolic Kik489 AN ION GAP 16 07/11/2015 Comp Metabolic Kyx241 GL UCOSE 75 mg/dL 07/11/2015 Comp Metabolic Tkn730 Cr eat 0.8 mg/dL 07/11/2015 Comp Metabolic Pqc897 eG FR 76 ml/min/1.73m2 07/10 Comp Metabolic Fja048 BUN 18 mg/dL 07/11/2015 Comp Metabolic Qzt721 B/ C Ratio 22.2 Ratio 07/11/2015 Comp Metabolic Blk476 CA LCIUM 9.5 mg/dL 07/11/2015 Comp Metabolic Cnp916 AL K PHOS 92 U/L 07/11/2015 Comp Metabolic Lkq091 T(SGOT) 16 U/L 07/11/2015 Comp Metabolic Mpq466 AL T(SGPT) 18 U/L 07/11/2015 Comp Metabolic Ngw169 BI LI T 0.6 mg/dL 07/11/2015 Comp Metabolic Xmv103 AL BUMIN 4.3 g/dL 07/11/2015 Comp Metabolic Eng802 TP RO 6.7 g/dL 07/11/2015 Comp Metabolic Fcz956 GL OB 2.4 g/dL 07/11/2015 Comp Metabolic Tci663 A/ G Ratio 1.7 Ratio 07/11/2015 Comp Metabolic Gzq120 Os mo 274 mOsmo 07/11/2015 B12 Eqd458 B12 >1500.00 pg/ml 07/11/2015 Cbc With Differential Ord2 WBC 7.43 [...] 30.8 pg 07/11/2015 Cbc With Differential Ord2 [place]% 7.8 % 07/11/2015 Cbc With Differential Ord2 [...] 2.75 K/ul 07/11/2015 Cbc With Differential Ord2 [place] ABS# 0.6 K/ul 07/11/2015 Cbc With Differential Ord2 Eos ABS# 0.4 K/ul 07/11/2015 Cbc With Differential Ord2 Baso ABS# 0.1 K/ul 07/11/2015 Cbc With Differential Ord2 New Analyzer Notice Please note new ref ranges s tarting 05-24-2015 due to implemntation of new five part differential hematolgy analyzer. 07/11/2015 Tsh Ord6 hTSH II 1.91 uIU/mL 07/11/2015 Lipid Ord30 CHOL 197 mg/dL 07/11/2015 Lipid Ord30 HDL 55.0 mg/dl 07/11/2015 Lipid Ord30 TRIG 126 mg/dL 07/11/2015 Lipid Ord30 LDL 117 mg/dL 07/11/2015 Lipid Ord30 C/HDL 3.6 Ratio 07/11/2015 Review of Systems System Result Effective Dates Constitutional No recent illness 06/18/2018 Constitutional No [...] scaly 10/22/2016 None Full Exam - General 1995 Constitutional general appearance Development: well developed 09/25/2016 [...] affect 11/03/2014 None Procedures Procedure Codes Date DRAIN/INJECT JOINT/B URSA CPT-4: 36128 12/05/2016 TRIAMCINOLONE ACET I [place] NOS CPT-4: J3301 12/05/2016 DESTRUCT PREMALG LESION CPT-4: 32397 10/22/2016 PPPS, SUBSEQ VISIT CPT- 4: G0439 04/19/2016 Vital Signs Date Vital 06/18/2018 Blood Pressure 1: 130/70 Code: 8480-6 BMI: 33.5 Code: 16882-0 Heart Rate 1: 72 bpm Height: 5'3" SpO2: 97% Weight: 189 lbs 02/18/2018 Blood Pressure 1: 100/52 Code: 8480-6 BMI: 31.9 Code: 73657-5 Heart Rate 1: 92 bpm Height: 5'3" SpO2: 90% Temperature: 36.6 (C ) / 97.9 (F) Weight: 180 lbs 01/08/2018 Blood Pressure 1: 140/80 Code: 8480-6 BMI: 32.6 Code: 60584-5 Heart Rate 1: 82 bpm Height: 5'3" SpO2: 92% Weight: 184 lbs 09/09/2017 Blood Pressure 1: 118/62 Code: 8480-6 BMI: 32.4 Code: 44388-5 Heart Rate 1: 80 bpm Height: 5'3" SpO2: 94% Weight: 183 lbs 03/25/2017 Blood Pressure 1: 122/68 Code: 8480-6 BMI: 31.2 Code: 20195-3 Heart Rate 1: 91 bpm Height: 5'3" SpO2: 95% Weight: 176 lbs 12/16/2016 Blood Pressure 1: 148/82 Code: 8480-6 Heart Rate 1: 77 bpm Height: 5'3" SpO2: 96% 12/05/2016 Blood Pressure 1: 138/72 Code: 8480-6 Heart Rate 1: 84 bpm Height: 5'3" SpO2: 92% Weight: 10/22/2016 Blood Pressure 1: 136/78 Code: 8480-6 BMI: 30.1 Code: 30013-7 Heart Rate 1: 70 bpm Height: 5'3" SpO2: 95% Weight: 170 lbs 09/25/2016 Blood Pressure 1: 122/72 Code: 8480-6 BMI: 29.8 Code: 08623-8 Heart Rate 1: 67 bpm Height: 5'3" SpO2: 97% Weight: 168 lbs 05/29/2016 Blood Pressure 1: 112/70 Code: 8480-6 BMI: 27.8 Code: 38443-5 Heart Rate 1: 102 bpm Height: 5'3" SpO2: 98% Weight: 157 lbs 04/19/2016 Blood Pressure 1: 128/58 Code: 8480-6 BMI: 28.5 Code: 37361-9 Heart Rate 1: 85 bpm Height: 5'3" SpO2: 98% Waist Measure (cm): 81 cm Weight: 161 lbs 04/17/2016 Blood Pressure 1: 128/82 Code: 8480-6 BMI: 28.5 Code: 10911-6 Heart Rate 1: 85 bpm Height: 5'3" SpO2: 98% Weight: 161 lbs 10/12/2015 Blood Pressure 1: 124/68 Code: 8480-6 BMI: 28.2 Code: 33814-1 Heart Rate 1: 72 bpm Height: 5'3" SpO2: 98% Weight: 159 lbs 07/11/2015 Blood Pressure 1: 128/88 Code: 8480-6 BMI: 28.5 Code: 36258-3 Heart Rate 1: 73 bpm Height: 5'3" SpO2: 93% Weight: 161 lbs 05/16/2015 Blood Pressure 1: 120/82 Code: 8480-6 BMI: 28.3 Code: 56890-6 Heart Rate 1: 82 bpm Height: 5'3" SpO2: 93% Weight: 160 lbs 11/03/2014 Blood Pressure 1: 132/74 Code: 8480-6 BMI: 27.6 Code: 27544-0 Heart Rate 1: 80 bpm Height: 5'3" SpO2: 98% Weight: 156 lbs Functional Status No Functional Status data History of Present Illness Symptom Name Status Resu lt Effective Date Notes Quality primary hypert ension 06/18/2018 None Quality [...] decreased energy 02/18/2018 None hypertension Quality esthela castañeda hypertension 01/08/2018 None hypertension Quality sta ble [...] Encounters Encounter Performer Loca tion Codes Date ([id number]) [id number] EST. P ATIENT, LEVEL IV Diagnosis: Essential (primary) hypertension[ICD10: I10] Diagnosis: Pain in right hip[ICD10: M25.551] Diagnosis: Low back pain[ICD10: M54.5] [facility] CPT-4: 11852 06/18/2018 ([id number]) [id number] EST. P ATIENT, LEVEL III Diagnosis: Acute bronchitis due to other specified organisms[ICD10: J20.8] Diagnosis: Cough[ICD10: R05] Tamara Jones MD, [facility] CPT-4: 72943 02/18/2018 ([id number]) [id number] EST. P ATIENT, LEVEL IV Diagnosis: Essential (primary) hypertension[ICD10: I10] Diagnosis: Low back pain[ICD10: M54.5] Diagnosis: Spinal stenosis, lumbosacral region[ICD10: M48.07] Diagnosis: Mixed hyperlipidemia[ICD10: E78.2] Tamara Jones MD, [facility] CPT- 4: 86557 01/08/2018 ([id number]) [id number] EST. P ATIENT, LEVEL IV Diagnosis: Essential (primary) hypertension[ICD10: I10] Diagnosis: Low back pain[ICD10: M54.5] Diagnosis: Spinal stenosis, lumbosacral region[ICD10: M48.07] Tamara Jones MD, [facility] CPT-4: 96901 09/09/2017 ([id number]) [id number] EST. P ATIENT, LEVEL IV Diagnosis: Essential (primary) hypertension[ICD10: I10] Diagnosis: Mixed hyperlipidemia[ICD10: E78.2] Diagnosis: Low back pain[ICD10: M54.5] Diagnosis: Pain in right hip[ICD10: M25.551] Diagnosis: Pain in left hip[ICD10: M25.552] Tamara Jones MD, [facility] CPT-4: 56359 03/25/2017 ([id number]) [id number] EST. P ATIENT, LEVEL III Diagnosis: Low back pain[ICD10: M54.5] Diagnosis: Sciatica, left side[ICD10: M54.32] Elina Jones MD, [facility] CPT-4: 72449 12/16/2016 [id number] EST. PATIENT, LEVEL III Diagnosis: Sacroiliitis, not elsewhere classified[ICD10: M46.1] Diagnosis: Sciatica, left side[ICD10: M54.32] Diagnosis: Pain in left hip[ICD10: M25.552] Evelyn Jones MD, [facility] CPT-4: 40585 12/05/2016 ([id number]) [id number] EST. P ATIENT, LEVEL IV Diagnosis: Encounter for screening mammogram for malignant neoplasm of breast[ICD10: Z12.31] Diagnosis: Essential (primary) hypertension[ICD10: I10] Diagnosis: Mixed hyperlipidemia[ICD10: E78.2] Diagnosis: Major depressive disorder, recurrent, mild[ICD10: F33.0] Tamara Jones MD, C CPT-4: 84043 09/25/2016 ([id number]) 14473 EST. P ATIENT, LEVEL IV Diagnosis: Essential (primary) hypertension[ICD10: I10] Diagnosis: Mixed hyperlipidemia[ICD10: E78.2] Diagnosis: Major depressive disorder, recurrent, moderate[ICD10: F33.1] Tamara Jones MD, [facility] CPT-4: 05027 05/29/2016 ([id number]) 69044 EST. P ATIENT, LEVEL IV Diagnosis: Essential (primary) hypertension[ICD10: I10] Diagnosis: Mixed hyperlipidemia[ICD10: E78.2] Diagnosis: Pain in right hip[ICD10: M25.551] Diagnosis: Major depressive disorder, recurrent, mild[ICD10: F33.0] Tamara Jones MD, C CPT-4: 52075 04/17/2016 ([id number]) 39618 EST. P ATIENT, LEVEL IV Diagnosis: Essential (primary) hypertension[ICD10: I10] Diagnosis: Low back pain[ICD10: M54.5] Diagnosis: Mixed hyperlipidemia[ICD10: E78.2] Tamara Jones MD, [facility] CPT- 4: 33060 10/12/2015 ([id number]) 68618 EST. P ATIENT, LEVEL III Diagnosis: Essential (primary) hypertension[ICD10: I10] Diagnosis: Mixed hyperlipidemia[ICD10: E78.2] Diagnosis: Vitamin B12 deficiency anemia, unspecified[ICD10: D51.9] Elina Jones MD, [facility] CPT-4: 19212 07/11/2015 ([id number]) 49649 EST. P ATIENT, LEVEL IV Diagnosis: Essential (primary) hypertension[ICD10: I10] Diagnosis: Low back pain[ICD10: M54.5] Diagnosis: Sciatica, right side[ICD10: M54.31] [facility] CPT-4: 82866 05/16/2015 ([id number]) [facility] - LEVEL 4 Diagnosis: ESSENTIAL HYPERTENSION[ICD9: 401.9] Diagnosis: HYPERLIPIDEMIA[ICD9: 272.4] Diagnosis: OSTEOARTH NOS-UNSPEC[ICD9: 715.90] Diagnosis: Sacroiliitis[ICD9: 720.2] [facility] CPT-4: 09861 11/03/2014 Plan of Care Planned Activity Notes [...] Dr. Zurita. 06/18/2018 Appointment: Tamara Jones WPtel: [address] [place], [place] [phone] (15 min) Moderate 06/18/2018 Patient Education: Patient Medication Summary Completed 06/18/2018 Patient Education: Back Pain Completed 06/18/2018 Appointment: Tamara Jones WPtel: [address] [place], [place] [id number] (15 min) Moderate 06/15/2018 Appointment: Elina Rivera WPtel: [phone] [place] (15 min) Moderate 02/27/2018 Appointment: Elina Rivera WPtel: [facility]5 [phone] (15 min) Moderate 02/23/2018 Visit Plan: Bronchitis - acute case of bronchitis identified. Pt has been given antibiotics, breathing treatments as appropriate, and pt has been instructed to call if symptoms are not improved, or if symptoms acutely worsen. 02/18/2018 Appointment: Tamara Jones WPtel: [phone] [facility] (15 min) Moderate 02/18/2018 Patient Education: Patient Medication Summary Completed 02/18/2018 Appointment: Tamara Jones WPtel: [facility] (15 min) Moderate 02/16/2018 Visit Plan: [...] improving. 01/08/2018 Appointment: Tamara Jones WPtel: [phone] [facility] (15 min) Moderate 01/08/2018 Patient Education: [...] mag lab 09/09/2017 Appointment: Tamara Jones WPtel: [facility] (15 min) Moderate 09/09/2017 Patient Education: Patient Medication Summary Completed 09/09/2017 Care Plan: Referral Order SNOMED-CT : [id number] Pending 09/09/2017 Appointment: Elina Rivera WPtel: [phone] [facility] - Annual Wellness Visit 04/25/2017 Visit Plan: Hypertension - well con troerickaed - continue with current medications, continue with [...] prn. 03/25/2017 Appointment: Tamara Jones WPtel: [phone] [facility] (15 min) Moderate 03/25/2017 Patient Education: Patient Medication Summary Completed 03/25/2017 Patient Education: Obesity Completed 03/25/2017 Visit Plan: Low back pain-plan to i ncrease gabapentin-use hydrocodone for break through pain-discussed PT-patient to make appt with Dr Aguilera to discuss further treatment options 12/16/2016 Appointment: [facility] Rivera [facility]el[facility] [phone] [phone] (15 min) Moderate 12/16/2016 Patient Education: Patient [...] they worsen. 12/05/2016 Appointment: Evelyn Orosco WPtel: [facility] (30 min) Complex 12/05/2016 Patient Education: Patient Medication Summary Completed 12/05/2016 Visit Plan: Wound Instructions - Pt was instructed to keep the wound clean, wash with antibacterial soap, use triple antibiotic ointment, call if redness, pustular drainage, or any other acute concerns. 10/22/2016 Appointment: Elina Rivera WPtel: [phone] (15 min) Moderate 10/22/2016 Patient Education: [...] with SSRI 09/25/2016 Appointment: Tamara Jones WPtel: [facility] (15 min) Moderate 09/25/2016 Patient Education: Patient Medication Summary Completed 09/25/2016 Patient Education: Obesity Completed 09/25/2016 [facility] Plan[id number] Pending 09/25/2016 Visit Plan: Hypertension - well [...] as prescribed. 05/29/2016 App[facility]ment: [phone] (15 min) Moderate 05/29/2016 Patient Education: Patient [...] care surrogate. 04/19/2016 Appointment: [facility] Rivera [facility]el[facility] [phone] [phone] [facility] - Annual Wellness Visit 04/19/2016 Patient Education: [...] SSRI 04/17/2016 App[facility]ment: [phone] (15 min) Moderate 04/17/2016 Patient Education: Patient [...] medications. 10/12/2015 App[facility]ment: [phone] (30 min) Complex 10/12/2015 Patient Education: Patient [...] they worsen. 11/03/2014 Appointment: Tamara Jones WPtel: [address] [place], [place] [address] [place] ([place]) New Patient 11/03/2014 Patient Education: Patient Medication Summary Completed 11/03/2014 Patient Education: Hypertension Completed 11/03/2014 Referral: External, Ordering Provider Referral Appointment Requested Instructions Comment . Hypertension - perez l controlled - continue with current medications, [...] pressure readings at home. fasting labs to [facility] lab . Wound Instructions - Pt was [...] use, call if symptoms are not improving. . Hypertension - wel l controlled - [...]
--- OUTSIDE RECORDS SUMMARY | 2019-09-24 08:49 | XMS REPORT | CCD ---
Author Author Marjorie Jones Organization Tamara Jones MD, [facility] Address [address] [place] [address] Phone Care Team Providers Care Curtain Stretcher Name Role Phone PP Unavailable CCM Unavailable Summary Purpose Interface Exchange Insurance Providers Payer name Policy type / Coverage type Covered constitution party ID Effective Begin Date Effective End Date [place] [employer] Medicare Part B [id number] Unknown [facility] icare Part B [id number] Un known Family history Mother Diagnosis Age At Onset Diabetes mellitus Type 2 Unknown Father Diagnosis Age At Onset Depression Unknown Hyperlipidemia Unknown Hypertension Unknown Stroke Unknown Coronary Artery Disease Unknown Social History Social History Element Codes Description Effective Dates Marital status Unknown M arried Walter 11/03/2014 Number of children Unknown 0 11/03/2014 Employment Unknown Curre ntly unemployed 11/03/[address]: 6472199 Quit over 10 years ago 199911/03/2014 Alcohol [...] 7.5 mg-a cetaminophen 325 mg tablet RxNorm: 575405 1 Tablet(s) PO TID 06/29/2018 07/28/2018 Ac tive memantine 10 mg tablet RxNorm: 468986 1 Tablet(s) PO BID 06/18/2018 01/13/2019 Active Aricept 10 mg tablet RxNorm: 056835 1/2 tab daily x 2 weeks then increase to 1 Tablet(s) PO daily thereafter 06/18/2018 08/11/2019 Active escitalopram 10 mg t ablet RxNorm: 647868 TAKE ONE TABLET BY MO [facility] ONCE DAILY IN THE EVENING 06/18/2018 No Stop Date Active gabapentin 100 mg ca psule RxNorm: 500109 TAKE 1 CAPSULE BY [facility] TH ONCE DAILY IN THE MORNING 06/11/2018 No Stop Date Active Lipitor 20 mg tablet RxNorm: 446580 TAKE ONE TABLET BY MOUTH THREE TIMES [facility] 05/06/2018 No Stop Date Active hydrocodone 7.5 mg-a cetaminophen 325 mg tablet RxNorm: 940346 1 Tablet(s) PO TID 04/30/2018 05/29/2018 In active hydrocodone 7.5 mg-a cetaminophen 325 mg tablet RxNorm: 283246 1 Tablet(s) PO TID 03/26/2018 04/24/2018 In active prednisone 20 mg tablet RxNorm: 982949 2 Tablet(s) PO daily 02/18/2018 02/22/2018 Inactive Ventolin HFA 90 mcg/ actuation aerosol inhaler RxNorm: 266933 2 INH TID x 1 week th en twice daily x 5 days then as needed. 02/18/2018 04/18/2018 Inactive plea se give pt a spacer cefdinir 300 mg capsule RxNorm: 822423 1 Capsule(s) PO BID 02/18/2018 02/24/2018 Inactive memantine 10 mg tablet RxNorm: 392262 1/2 tab nightly x1wk then 1/2tab bid x1w k then 1/2tab am and 1tab hs x1wk then 1 Tablet(s) PO BID 01/08/2018 06/17/2018 Inactive hydrocodone 7.5 mg-a cetaminophen 325 mg tablet RxNorm: 748994 1 Tablet(s) PO TID 01/08/2018 02/06/2018 In active gabapentin 100 mg ca psule RxNorm: 495700 TAKE 1 CAPSULE BY [facility] ONCE DAILY IN THE MORNING 12/24/2017 06/10/2018 Inactive hydrocodone 7.5 mg-a cetaminophen 325 mg tablet RxNorm: 466613 1-2 Tablet(s) PO Q6 a s needed 12/01/2017 12/22/2017 Inactive diclofenac sodium 75 mg tablet,delayed release RxNorm: 043179 TAKE ONE TABLET BY [facility] TWICE DAILY 11/10/2017 No Stop Date Active hydrocodone 7.5 mg-a cetaminophen 325 mg tablet RxNorm: 963988 1-2 Tablet(s) PO Q6 a s needed 10/17/2017 11/07/2017 Inactive hydrocodone 7.5 mg-a cetaminophen 325 mg tablet RxNorm: 532838 1-2 Tablet(s) PO Q6 a s needed 09/01/2017 09/22/2017 Inactive hydrocodone 7.5 mg-a cetaminophen 325 mg tablet RxNorm: 288031 1-2 Tablet(s) PO Q6 a s needed 08/25/2017 08/31/2017 Inactive lisinopril 10 mg-hyd rochlorothiazide 12.5 mg tablet RxNorm: 471400 Tablet(s) TAKE ONE TABLET BY MOUTH ONCE DAILY 07/14/2017 07/08/2018 Active hydrocodone 7.5 mg-a cetaminophen 325 mg tablet RxNorm: 679868 1-2 Tablet(s) PO Q6 a s needed 07/14/2017 08/04/2017 Inactive gabapentin 100 mg ca psule RxNorm: 205686 1 Capsule(s) PO QAM 06/23/2017 12/19/2017 Inactive hydrocodone 7.5 mg-a cetaminophen 325 mg tablet RxNorm: 550302 1-2 Tablet(s) PO Q6 a s needed 05/20/2017 06/10/2017 Inactive Lipitor 20 mg tablet RxNorm: 851233 1 Tablet(s) PO TIW 05/13/2017 05/05/2018 Inactive escitalopram 10 mg t ablet RxNorm: 762051 1 Tablet(s) PO QPM 05/13/2017 05/07/2018 Inactive escitalopram 10 mg t ablet RxNorm: 542737 1 Tablet(s) PO QPM 04/16/2017 05/12/2017 Inactive lisinopril 10 mg-hyd rochlorothiazide 12.5 mg tablet RxNorm: 356380 TAKE ONE TABLET BY MOUTH ONCE DAILY 04/15/2017 07/13/2017 Inactive escitalopram 10 mg t ablet RxNorm: 001160 1 Tablet(s) PO QPM 04/09/2017 04/15/2017 Inactive hydrocodone 7.5 mg-a cetaminophen 325 mg tablet RxNorm: 753030 1-2 Tablet(s) PO Q6 a s needed 03/17/2017 04/07/2017 Inactive hydrocodone 7.5 mg-a cetaminophen 325 mg tablet RxNorm: 152372 1-2 Tablet(s) PO Q6 a s needed 12/27/2016 01/17/2017 Inactive gabapentin 100 mg ca psule RxNorm: 636459 1 Capsule(s) PO QAM 12/16/2016 06/13/2017 Inactive prednisone 20 mg tablet RxNorm: 414152 2 Tablet(s) PO daily 12/06/2016 12/05/2016 Inactive prednisone 20 mg tablet RxNorm: 428174 2 Tablet(s) PO daily 12/06/2016 12/15/2016 Inactive Kenalog 40 mg/mL christoph pension for injection RxNorm: 3984224 1 Milliliter(s) Inj 12/05/2016 12/05/2016 In active diclofenac sodium 75 mg tablet,delayed release RxNorm: 354087 1 Tablet(s) PO BID 10/30/2016 10/24/2017 In active hydrocodone 7.5 mg-a cetaminophen 325 mg tablet RxNorm: 355578 1-2 Tablet(s) PO Q6 a s needed 10/23/2016 11/13/2016 Inactive hydrocodone 7.5 mg-a cetaminophen 325 mg tablet RxNorm: 006034 1-2 Tablet(s) PO Q6 a s needed 08/16/2016 09/06/2016 Inactive lisinopril 10 mg-hyd rochlorothiazide 12.5 mg tablet RxNorm: 495203 TAKE ONE TABLET BY MOUTH ONCE DAILY 06/07/2016 04/14/2017 Inactive Lipitor 40 mg tablet RxNorm: 682151 1 Tablet(s) PO TIW 05/31/2016 05/01/2017 Inactive Lipitor 20 mg tablet RxNorm: 239895 1 Tablet(s) PO TIW 05/29/2016 05/30/2016 Inactive hydrocodone 7.5 mg-a cetaminophen 325 mg tablet RxNorm: 477833 1-2 Tablet(s) PO Q6 a s needed 05/23/2016 06/13/2016 Inactive escitalopram 10 mg t ablet RxNorm: 145704 1 Tablet(s) PO QPM st art at 1/2 pill nightly x 1wk then a full pill thereafter 04/17/2016 04/08/2017 Inactive hydrocodone 7.5 mg-a cetaminophen 325 mg tablet RxNorm: 557566 1-2 Tablet(s) PO Q6 a s needed 02/28/2016 03/20/2016 Inactive hydrocodone 7.5 mg-a cetaminophen 325 mg tablet RxNorm: 291201 1-2 Tablet(s) PO Q6 a s needed 12/04/2015 12/25/2015 Inactive diclofenac sodium 75 mg tablet,delayed release RxNorm: 265303 1 Tablet(s) PO BID 10/23/2015 10/16/2016 In active hydrocodone 7.5 mg-a cetaminophen 325 mg tablet RxNorm: 034978 1-2 Tablet(s) PO Q6 a s needed 09/12/2015 12/03/2015 Inactive promethazine 25 mg t ablet RxNorm: 998825 1 Tablet(s) PO Q6 as needed 08/30/2015 No Stop Date Active lisinopril 10 mg-hyd rochlorothiazide 12.5 mg tablet RxNorm: 891404 1 Tablet(s) PO daily 05/09/2015 05/02/2016 Inactive hydrocodone 7.5 mg-a cetaminophen 325 mg tablet RxNorm: 448412 1-2 Tablet(s) PO Q6 a s needed 04/17/2015 09/11/2015 Inactive lisinopril 10 mg-hyd rochlorothiazide 12.5 mg tablet RxNorm: 060731 1 Tablet(s) PO daily 01/31/2015 05/08/2015 Inactive hydrocodone 7.5 mg-a cetaminophen 325 mg tablet RxNorm: 580073 1-2 Tablet(s) PO Q6 a s needed 01/18/2015 04/16/2015 Inactive diclofenac sodium 75 mg tablet,delayed release RxNorm: 734431 1 Tablet(s) PO BID 01/18/2015 10/14/2015 In active Voltaren 1 % topical gel RxNorm: 640475 4 Gram(s) TOP QID chelsie ly to sacroiliac joint 11/03/2014 05/15/2015 In active lisinopril 10 mg-hyd rochlorothiazide 12.5 mg tablet RxNorm: 019378 1 Tablet(s) PO daily 11/03/2014 12/02/2014 Inactive B-12 Plus sublingual RxNorm: 72864 sublingual No Start Date Active amoxicillin 500 mg c apsule RxNorm: 030833 4 Capsule(s) PO as do ctor directed 1 hours before appt No Start Date Active gabapentin 300 mg ca psule RxNorm: 582105 1 Capsule(s) PO QHS No Start Date Active promethazine 25 mg t ablet RxNorm: 637459 1 Tablet(s) PO Q6 as needed No Start Date 08/29/2015 Inactive diclofenac sodium 75 mg tablet,delayed release RxNorm: 200910 1 Tablet(s) PO BID No Start Date 01/17/2015 Inactive hydrocodone 7.5 mg-a cetaminophen 325 mg tablet RxNorm: 464268 1-2 Tablet(s) PO Q6 a s needed No Start Date 01/17/2015 Inactive Crestor 5 mg tablet RxNorm: 789957 1 Tablet(s) PO 3 x week No Start Date 05/28/2016 Inactive Medication Administered Medication Codes Instruc tions Start Date Status Kenalog 40 mg/mL suspension for injection RxNorm: 5630129 1Milliliter 12/05/2016 N o longer Active Immunizations No Immunization data Assessments Condition Codes Effectiv e Dates Essential (primary) hypertension ICD -10: I10 ICD-9: 401.1 06/18/2018 Pain in right hip ICD-10: M25.551 ICD-9: 719.45 06/18/2018 Low back pain ICD-10: M54.5 ICD-9: 724.2 06/18/2018 Acute bronchitis due to other specified organisms ICD-10: J20.8 ICD-9: 466.0 02/18/2018 Cough ICD-10: R05 ICD-9: 786.2 02/18/2018 Spinal stenosis, lumbosacral region ICD-10: M48.07 [...] Item Item Code Result Date Comp Metabolic Eau355 NA 140 mEq/L 01/14/2018 Comp Metabolic Ffo024 K 3.8 mEq/L 01/14/2018 Comp Metabolic Dtk344 CL 101 mEq/L 01/14/2018 Comp Metabolic Xrw572 CO2 30.0 mEq/L 01/14/2018 Comp Metabolic Npd378 AN ION GAP 13 01/14/2018 Comp Metabolic Rcu936 GL UCOSE 89 mg/dL 01/14/2018 Comp Metabolic Erl177 Cr eat 1.0 mg/dL 01/14/2018 Comp Metabolic Wgh360 eG FR 63 ml/min/1.73m2 01/14 Comp Metabolic Lhq773 BUN 16 mg/dL 01/14/2018 Comp Metabolic Igc070 B/ C Ratio 16.8 Ratio 01/14/2018 Comp Metabolic Duq471 CA LCIUM 9.2 mg/dL 01/14/2018 Comp Metabolic Ftv461 AL K PHOS 88 U/L 01/14/2018 Comp Metabolic Dqe646 T(SGOT) 13 U/L 01/14/2018 Comp Metabolic Xdn252 AL T(SGPT) 9 U/L 01/14/2018 Comp Metabolic Skh994 BI LI T 0.5 mg/dL 01/14/2018 Comp Metabolic Ovp010 AL BUMIN 4.0 g/dL 01/14/2018 Comp Metabolic Oxj175 TP RO 6.5 g/dL 01/14/2018 Comp Metabolic Ieg326 GL OB 2.5 g/dL 01/14/2018 Comp Metabolic Rqy356 A/ G Ratio 1.6 Ratio 01/14/2018 Comp Metabolic Akv661 Os mo 280 mOsmo 01/14/2018 Tsh Ord6 [...] 14.2 g/dl 01/14/2018 Cbc With Differential Ord2 Neut% 56.3 % 01/14/2018 Cbc With Differential Ord2 HCT 42.1 % 01/14/2018 Cbc With Differential Ord2 Lymph% 31.7 % 01/14/2018 Cbc With Differential Ord2 MCV 93.3 fl 01/14/2018 Cbc With Differential Ord2 MCH 31.5 pg 01/14/2018 Cbc With Differential Ord2 [place]% 8.5 % 01/14/2018 Cbc With Differential Ord2 [...] 3.44 K/ul 01/14/2018 Cbc With Differential Ord2 [place] ABS# 0.9 K/ul 01/14/2018 Cbc With Differential Ord2 Eos ABS# 0.3 K/ul 01/14/2018 Cbc With Differential Ord2 Baso ABS# 0.0 K/ul 01/14/2018 Cbc With Differential Ord2 WBC 5.41 K/ul 09/10/2017 Cbc With Differential Ord2 RBC 4.78 M/ul 09/10/2017 Cbc With Differential Ord2 HGB 14.8 g/dl 09/10/2017 Cbc With Differential Ord2 Neut% 54.4 % 09/10/2017 Cbc With Differential Ord2 HCT 44.7 % 09/10/2017 Cbc With Differential Ord2 MCV 93.5 fl 09/10/2017 Cbc With Differential Ord2 Lymph% 33.6 % 09/10/2017 Cbc With Differential Ord2 MCH 31.0 pg 09/10/2017 Cbc With Differential Ord2 [place]% 9.2 % 09/10/2017 Cbc With Differential Ord2 MCHC 33.1 pg 09/10/2017 Cbc With Differential Ord2 Eos% 2.4 % 09/10/2017 Cbc With Differential Ord2 Baso% 0.4 % 09/10/2017 Cbc With Differential Ord2 PLT 310 K/ul 09/10/2017 Cbc With Differential Ord2 Neut ABS# 2.94 K/ul 09/10/2017 Cbc With Differential Ord2 RDW 13.5 % 09/10/2017 Cbc With Differential Ord2 Lymph ABS# 1.82 K/ul 09/10/2017 Cbc With Differential Ord2 [place] ABS# 0.5 K/ul 09/10/2017 Cbc With Differential Ord2 Eos ABS# 0.1 K/ul 09/10/2017 Cbc With Differential Ord2 Baso ABS# 0.0 K/ul 09/10/2017 Tsh Ord6 TSH (3rd IS) 1.22 uIU/mL 09/10/2017 Comp Metabolic Win019 NA 140 mEq/L 09/10/2017 Comp Metabolic Asl920 K 4.2 mEq/L 09/10/2017 Comp Metabolic Kpy100 CL 107 mEq/L 09/10/2017 Comp Metabolic Fhu847 CO2 25.0 mEq/L 09/10/2017 Comp Metabolic Ykf205 AN ION GAP 12 09/10/2017 Comp Metabolic Rwg031 GL UCOSE 84 mg/dL 09/10/2017 Comp Metabolic Dti769 Cr eat 0.7 mg/dL 09/10/2017 Comp Metabolic Amb848 eG FR 85 ml/min/1.73m2 09/10 Comp Metabolic Lvf909 BUN 11 mg/dL 09/10/2017 Comp Metabolic Jgg280 B/ C Ratio 15.1 Ratio 09/10/2017 Comp Metabolic Bol616 CA LCIUM 9.1 mg/dL 09/10/2017 Comp Metabolic Pil879 AL K PHOS 61 U/L 09/10/2017 Comp Metabolic Mrd053 T(SGOT) 38 U/L 09/10/2017 Comp Metabolic Kvo893 AL T(SGPT) 24 U/L 09/10/2017 Comp Metabolic Qoz774 BI LI T 0.5 mg/dL 09/10/2017 Comp Metabolic Hdk982 AL BUMIN 4.0 g/dL 09/10/2017 Comp Metabolic Wci596 TP RO 6.6 g/dL 09/10/2017 Comp Metabolic Wuq726 GL OB 2.6 g/dL 09/10/2017 Comp Metabolic Zzn643 A/ G Ratio 1.6 Ratio 09/10/2017 Comp Metabolic Cyg580 Os mo 278 mOsmo 09/10/2017 Lipid Ord30 CHOL 148 mg/dL 09/10/2017 Lipid Ord30 HDL 41.0 mg/dl 09/10/2017 Lipid Ord30 TRIG 66 mg/dL 09/10/2017 Lipid Ord30 LDL 94 mg/dL 09/10/2017 Lipid Ord30 C/HDL 3.6 Ratio 09/10/2017 Tsh Ord6 hTSH II 1.57 uIU/mL 09/25/2016 Comp Metabolic Xeq605 NA 139 mEq/L 09/25/2016 Comp Metabolic Smk921 K 4.5 mEq/L 09/25/2016 Comp Metabolic Xbh539 CL 102 mEq/L 09/25/2016 Comp Metabolic Rwq730 CO2 29.0 mEq/L 09/25/2016 Comp Metabolic Gnf428 AN ION GAP 13 09/25/2016 Comp Metabolic Qsm010 GL UCOSE 84 mg/dL 09/25/2016 Comp Metabolic Tpo273 Cr eat 0.9 mg/dL 09/25/2016 Comp Metabolic Xbr096 eG FR 70 ml/min/1.73m2 09/25 Comp Metabolic Pzq891 BUN 21 mg/dL 09/25/2016 Comp Metabolic Raz955 B/ C Ratio 24.1 Ratio 09/25/2016 Comp Metabolic Eyl748 CA LCIUM 9.2 mg/dL 09/25/2016 Comp Metabolic Jbg556 AL K PHOS 89 U/L 09/25/2016 Comp Metabolic Wkn867 T(SGOT) 19 U/L 09/25/2016 Comp Metabolic Uqy700 AL T(SGPT) 19 U/L 09/25/2016 Comp Metabolic Vng716 BI LI T 0.5 mg/dL 09/25/2016 Comp Metabolic Snf394 AL BUMIN 4.1 g/dL 09/25/2016 Comp Metabolic Rlb851 TP RO 6.5 g/dL 09/25/2016 Comp Metabolic Gfc779 GL OB 2.4 g/dL 09/25/2016 Comp Metabolic Ikk098 A/ G Ratio 1.7 Ratio 09/25/2016 Comp Metabolic Cxe506 Os mo 280 mOsmo 09/25/2016 Cbc With [...] 30.4 % 09/25/2016 Cbc With Differential Ord2 [place]% 7.7 % 09/25/2016 Cbc With Differential Ord2 MCH 32.2 pg 09/25/2016 Cbc With Differential Ord2 MCHC 34.0 pg 09/25/2016 Cbc With Differential Ord2 Eos% 3.2 % 09/25/2016 Cbc With Differential Ord2 Baso% 0.3 % 09/25/2016 Cbc With Differential Ord2 PLT 264 K/ul 09/25/2016 Cbc With Differential Ord2 RDW 13.1 % 09/25/2016 Cbc With Differential Ord2 Neut ABS# 5.45 K/ul 09/25/2016 Cbc With Differential Ord2 Lymph ABS# 2.84 K/ul 09/25/2016 Cbc With Differential Ord2 [place] ABS# 0.7 K/ul 09/25/2016 Cbc With Differential [...] Ord30 C/HDL 5.1 Ratio 04/19/2016 Comp Metabolic Nhx058 NA 135 mEq/L 04/19/2016 Comp Metabolic Eac380 K 4.2 mEq/L 04/19/2016 Comp Metabolic Zwp908 CL 97 mEq/L 04/19/2016 Comp Metabolic Wgw309 CO2 28.0 mEq/L 04/19/2016 Comp Metabolic Obh283 AN ION GAP 14 04/19/2016 Comp Metabolic Jtn088 GL UCOSE 89 mg/dL 04/19/2016 Comp Metabolic Rzi705 Cr eat 0.8 mg/dL 04/19/2016 Comp Metabolic Dxr158 eG FR 77 ml/min/1.73m2 04/19 Comp Metabolic Doa695 BUN 17 mg/dL 04/19/2016 Comp Metabolic Fjb812 B/ C Ratio 21.3 Ratio 04/19/2016 Comp Metabolic Xbe545 CA LCIUM 9.8 mg/dL 04/19/2016 Comp Metabolic Rxp044 AL K PHOS 89 U/L 04/19/2016 Comp Metabolic Bom688 T(SGOT) 16 U/L 04/19/2016 Comp Metabolic Aqx851 AL T(SGPT) 13 U/L 04/19/2016 Comp Metabolic Vna555 BI LI T 0.4 mg/dL 04/19/2016 Comp Metabolic Xcq760 AL BUMIN 4.5 g/dL 04/19/2016 Comp Metabolic Njf987 TP RO 7.2 g/dL 04/19/2016 Comp Metabolic Cjn340 GL OB 2.7 g/dL 04/19/2016 Comp Metabolic Hsc172 A/ G Ratio 1.7 Ratio 04/19/2016 Comp Metabolic Pkz590 Os mo 271 mOsmo 04/19/2016 Tsh Ord6 [...] 91.2 fl 04/19/2016 Cbc With Differential Ord2 [place]% 6.4 % 04/19/2016 Cbc With Differential Ord2 MCH 30.9 pg 04/19/2016 Cbc With Differential Ord2 MCHC 33.9 pg 04/19/2016 Cbc With Differential Ord2 Eos% 2.1 % 04/19/2016 Cbc With Differential Ord2 Baso% 0.2 % 04/19/2016 Cbc With Differential Ord2 PLT 302 K/ul 04/19/2016 Cbc With Differential Ord2 RDW 13.3 % 04/19/2016 Cbc With Differential Ord2 Neut ABS# 6.64 K/ul 04/19/2016 Cbc With Differential Ord2 Lymph ABS# 3.43 K/ul 04/19/2016 Cbc With Differential Ord2 [place] ABS# 0.7 K/ul 04/19/2016 Cbc With Differential [...] 40.6 % 07/11/2015 Cbc With Differential Ord2 MCV 92.1 fl 07/11/2015 Cbc With Differential Ord2 Lymph% 37.0 % 07/11/2015 Cbc With Differential Ord2 [place]% 7.8 % 07/11/2015 Cbc With Differential Ord2 MCH 30.8 pg 07/11/2015 Cbc With Differential Ord2 MCHC 33.5 pg 07/11/2015 Cbc With Differential Ord2 Eos% 5.0 % 07/11/2015 Cbc With Differential Ord2 PLT 304 K/ul 07/11/2015 Cbc With Differential Ord2 Baso% 0.7 % 07/11/2015 Cbc With Differential Ord2 Neut ABS# 3.68 K/ul 07/11/2015 Cbc With Differential Ord2 RDW 13.2 % 07/11/2015 Cbc With Differential Ord2 Lymph ABS# 2.75 K/ul 07/11/2015 Cbc With Differential Ord2 [place] ABS# 0.6 K/ul 07/11/2015 Cbc With Differential Ord2 Eos ABS# 0.4 K/ul 07/11/2015 Cbc With Differential Ord2 Baso ABS# 0.1 K/ul 07/11/2015 Cbc With Differential Ord2 New Analyzer Notice Please note new ref ranges s tarting 05-24-2015 due to implemntation of new five part differential hematolgy analyzer. 07/11/2015 Comp Metabolic Dck993 NA 137 mEq/L 07/11/2015 Comp Metabolic Gxu323 K 4.4 mEq/L 07/11/2015 Comp Metabolic Yna962 CL 100 mEq/L 07/11/2015 Comp Metabolic Uiw008 CO2 25.0 mEq/L 07/11/2015 Comp Metabolic Ews146 AN ION GAP 16 07/11/2015 Comp Metabolic Xbx755 GL UCOSE 75 mg/dL 07/11/2015 Comp Metabolic Ljb485 Cr eat 0.8 mg/dL 07/11/2015 Comp Metabolic Pxz245 eG FR 76 ml/min/1.73m2 07/10 Comp Metabolic Wvc919 BUN 18 mg/dL 07/11/2015 Comp Metabolic Iku240 B/ C Ratio 22.2 Ratio 07/11/2015 Comp Metabolic Pge574 CA LCIUM 9.5 mg/dL 07/11/2015 Comp Metabolic Hev058 AL K PHOS 92 U/L 07/11/2015 Comp Metabolic Vcc914 T(SGOT) 16 U/L 07/11/2015 Comp Metabolic Kga148 AL T(SGPT) 18 U/L 07/11/2015 Comp Metabolic Vkd530 BI LI T 0.6 mg/dL 07/11/2015 Comp Metabolic Ezy334 AL BUMIN 4.3 g/dL 07/11/2015 Comp Metabolic Wpv924 TP RO 6.7 g/dL 07/11/2015 Comp Metabolic Csw278 GL OB 2.4 g/dL 07/11/2015 Comp Metabolic Waj484 A/ G Ratio 1.7 Ratio 07/11/2015 Comp Metabolic Bkn220 Os mo 274 mOsmo 07/11/2015 Lipid Ord30 CHOL 197 mg/dL 07/11/2015 Lipid Ord30 HDL 55.0 mg/dl 07/11/2015 Lipid Ord30 TRIG 126 mg/dL 07/11/2015 Lipid Ord30 LDL 117 mg/dL 07/11/2015 Lipid Ord30 C/HDL 3.6 Ratio 07/11/2015 B12 Uhy704 B12 >1500.00 pg/ml 07/11/2015 Review of Systems [...] Procedure Codes Date DRAIN/INJECT JOINT/B URSA CPT-4: 90486 12/05/2016 TRIAMCINOLONE ACET I [place] NOS CPT-4: J3301 12/05/2016 DESTRUCT PREMALG LESION CPT-4: 99146 10/22/2016 PPPS, SUBSEQ VISIT CPT- 4: G0439 04/19/2016 Vital Signs Date Vital 06/18/2018 Blood Pressure 1: 130/70 Code: 8480-6 BMI: 33.5 Code: 28982-2 Heart Rate 1: 72 bpm Height: 5'3" SpO2: 97% Weight: 189 lbs 02/18/2018 Blood Pressure 1: 100/52 Code: 8480-6 BMI: 31.9 Code: 78889-0 Heart Rate 1: 92 bpm Height: 5'3" SpO2: 90% Temperature: 36.6 (C ) / 97.9 (F) Weight: 180 lbs 01/08/2018 Blood Pressure 1: 140/80 Code: 8480-6 BMI: 32.6 Code: 93759-5 Heart Rate 1: 82 bpm Height: 5'3" SpO2: 92% Weight: 184 lbs 09/09/2017 Blood Pressure 1: 118/62 Code: 8480-6 BMI: 32.4 Code: 57415-1 Heart Rate 1: 80 bpm Height: 5'3" SpO2: 94% Weight: 183 lbs 03/25/2017 Blood Pressure 1: 122/68 Code: 8480-6 BMI: 31.2 Code: 72266-4 Heart Rate 1: 91 bpm Height: 5'3" SpO2: 95% Weight: 176 lbs 12/16/2016 Blood Pressure 1: 148/82 Code: 8480-6 Heart Rate 1: 77 bpm Height: 5'3" SpO2: 96% 12/05/2016 Blood Pressure 1: 138/72 Code: 8480-6 Heart Rate 1: 84 bpm Height: 5'3" SpO2: 92% Weight: 10/22/2016 Blood Pressure 1: 136/78 Code: 8480-6 BMI: 30.1 Code: 55362-2 Heart Rate 1: 70 bpm Height: 5'3" SpO2: 95% Weight: 170 lbs 09/25/2016 Blood Pressure 1: 122/72 Code: 8480-6 BMI: 29.8 Code: 27568-8 Heart Rate 1: 67 bpm Height: 5'3" SpO2: 97% Weight: 168 lbs 05/29/2016 Blood Pressure 1: 112/70 Code: 8480-6 BMI: 27.8 Code: 49300-6 Heart Rate 1: 102 bpm Height: 5'3" SpO2: 98% Weight: 157 lbs 04/19/2016 Blood Pressure 1: 128/58 Code: 8480-6 BMI: 28.5 Code: 65643-0 Heart Rate 1: 85 bpm Height: 5'3" SpO2: 98% Waist Measure (cm): 81 cm Weight: 161 lbs 04/17/2016 Blood Pressure 1: 128/82 Code: 8480-6 BMI: 28.5 Code: 00350-9 Heart Rate 1: 85 bpm Height: 5'3" SpO2: 98% Weight: 161 lbs 10/12/2015 Blood Pressure 1: 124/68 Code: 8480-6 BMI: 28.2 Code: 80527-4 Heart Rate 1: 72 bpm Height: 5'3" SpO2: 98% Weight: 159 lbs 07/11/2015 Blood Pressure 1: 128/88 Code: 8480-6 BMI: 28.5 Code: 71941-7 Heart Rate 1: 73 bpm Height: 5'3" SpO2: 93% Weight: 161 lbs 05/16/2015 Blood Pressure 1: 120/82 Code: 8480-6 BMI: 28.3 Code: 51345-4 Heart Rate 1: 82 bpm Height: 5'3" SpO2: 93% Weight: 160 lbs 11/03/2014 Blood Pressure 1: 132/74 Code: 8480-6 BMI: 27.6 Code: 79745-8 Heart Rate 1: 80 bpm Height: 5'3" [...] Severity mild 09/25/2016 None hypertension Quality esthela castañeda hypertension 09/25/2016 None hypertension Onset of Symptom [...] exercise 04/19/2016 None Annual Medicare Wellness Exam Sandy ng Stress usually juliann effectively 04/19/2016 None [...] Encounters Encounter Performer Loca tion Codes Date ([id number]) [id number] EST. P ROSENDO, LEVEL IV Diagnosis: Essential (primary) hypertension[ICD10: I10] Diagnosis: Pain in right hip[ICD10: M25.551] Diagnosis: Low back pain[ICD10: M54.5] [facility] CPT-4: 52392 06/18/2018 ([id number]) [id number] EST. P ROSENDO LEVEL III Diagnosis: Acute bronchitis due to other specified organisms[ICD10: J20.8] Diagnosis: Cough[ICD10: R05] [facility] CPT-4: 42966 02/18/2018 ([id number]) [id number] EST. P ATIENT, LEVEL IV Diagnosis: Essential (primary) hypertension[ICD10: I10] Diagnosis: Low back pain[ICD10: M54.5] Diagnosis: Spinal stenosis, lumbosacral region[ICD10: M48.07] Diagnosis: Mixed hyperlipidemia[ICD10: E78.2] Tamara Jones MD, [facility] CPT- 4: 09065 01/08/2018 ([id number]) [id number] EST. P ATIENT, LEVEL IV Diagnosis: Essential (primary) hypertension[ICD10: I10] Diagnosis: Low back pain[ICD10: M54.5] Diagnosis: Spinal stenosis, lumbosacral region[ICD10: M48.07] Tamara Jones MD, [facility] CPT-4: 94174 09/09/2017 ([id number]) [id number] EST. P ATIENT, LEVEL IV Diagnosis: Essential (primary) hypertension[ICD10: I10] Diagnosis: Mixed hyperlipidemia[ICD10: E78.2] Diagnosis: Low back pain[ICD10: M54.5] Diagnosis: Pain in right hip[ICD10: M25.551] Diagnosis: Pain in left hip[ICD10: M25.552] Tamara Jones MD, [facility] CPT-4: 70873 03/25/2017 ([id number]) [id number] EST. P ATIENT, LEVEL III Diagnosis: Low back pain[ICD10: M54.5] Diagnosis: Sciatica, left side[ICD10: M54.32] Elina Jones MD, [facility] CPT-4: 68396 12/16/2016 [id number] EST. PATIENT, LEVEL III Diagnosis: Sacroiliitis, not elsewhere classified[ICD10: M46.1] Diagnosis: Sciatica, left side[ICD10: M54.32] Diagnosis: Pain in left hip[ICD10: M25.552] Evelyn Jones MD, [facility] CPT-4: 22851 12/05/2016 ([id number]) [id number] EST. P ATIENT, LEVEL IV Diagnosis: Encounter for screening mammogram for malignant neoplasm of breast[ICD10: Z12.31] Diagnosis: Essential (primary) hypertension[ICD10: I10] Diagnosis: Mixed hyperlipidemia[ICD10: E78.2] Diagnosis: Major depressive disorder, recurrent, mild[ICD10: F33.0] Tamara Jones MD, C CPT-4: 99666 09/25/2016 ([id number]) 13382 EST. P ATIENT, LEVEL IV Diagnosis: Essential (primary) hypertension[ICD10: I10] Diagnosis: Mixed hyperlipidemia[ICD10: E78.2] Diagnosis: Major depressive disorder, recurrent, moderate[ICD10: F33.1] Tamara Jones MD, [facility] CPT-4: 94928 05/29/2016 ([id number]) [id number] EST. P ATIENT, LEVEL IV Diagnosis: Essential (primary) hypertension[ICD10: I10] Diagnosis: Mixed hyperlipidemia[ICD10: E78.2] Diagnosis: Pain in right hip[ICD10: M25.551] Diagnosis: Major depressive disorder, recurrent, mild[ICD10: F33.0] Tamara Jones MD, C CPT-4: 92780 04/17/2016 ([id number]) [id number] EST. P ATIENT, LEVEL IV Diagnosis: Essential (primary) hypertension[ICD10: I10] Diagnosis: Low back pain[ICD10: M54.5] Diagnosis: Mixed hyperlipidemia[ICD10: E78.2] Tamara Jones MD, [facility] CPT- 4: 32399 10/12/2015 ([id number]) 53539 EST. P ATIENT, LEVEL III Diagnosis: Essential (primary) hypertension[ICD10: I10] Diagnosis: Mixed hyperlipidemia[ICD10: E78.2] Diagnosis: Vitamin B12 deficiency anemia, unspecified[ICD10: D51.9] Elina Jones MD, [facility] CPT-4: 28499 07/11/2015 ([id number]) 86489 EST. P ATIENT, LEVEL IV Diagnosis: Essential (primary) hypertension[ICD10: I10] Diagnosis: Low back pain[ICD10: M54.5] Diagnosis: Sciatica, right side[ICD10: M54.31] Elina Jones MD, [facility] CPT-4: 85592 05/16/2015 ([id number]) [facility] VISI , [facility] - LEVEL 4 Diagnosis: ESSENTIAL HYPERTENSION[ICD9: 401.9] Diagnosis: HYPERLIPIDEMIA[ICD9: 272.4] Diagnosis: OSTEOARTH NOS-UNSPEC[ICD9: 715.90] Diagnosis: Sacroiliitis[ICD9: 720.2] Tamara Jones MD, [facility] CPT-4: 81241 11/03/2014 Plan of Care Planned Activity Notes [...] Dr. Zurita. 06/18/2018 Appointment: Tamara Jones WPtel: [address] [place], [place] [phone] (15 min) Moderate 06/18/2018 Patient Education: Patient Medication Summary Completed 06/18/2018 Patient Education: Back Pain Completed 06/18/2018 Appointment: Tamara Jones WPtel: [address] [place], [place] [phone] (15 min) Moderate 06/15/2018 Appointment: Elina Rivera WPtel: [address] [place], [place] [phone] (15 min) Moderate 02/27/2018 Appointment: Elina Rivera WPtel: [address] [place], [place] [phone] (15 min) Moderate 02/23/2018 Visit Plan: Bronchitis - acute case of bronchitis identified. Pt has been given antibiotics, breathing treatments as appropriate, and pt has been instructed to call if symptoms are not improved, or if symptoms acutely worsen. 02/18/2018 Appointment: Tamara Jones WPtel: [phone] [phone] (15 min) Moderate 02/18/2018 Patient Education: Patient Medication Summary Completed 02/18/2018 Appointment: Tamara Jones WPtel: [facility] (15 min) Moderate 02/16/2018 Visit Plan: Hypertension [...] not improving. 01/08/2018 Appointment: Tamara Jones WPtel: [address] [place], [place] [phone] (15 min) Moderate 01/08/2018 Patient Education: Patient [...] mag lab 09/09/2017 Appointment: Tamara Jones [facility]Ptel[facility] [place] (15 min) Moderate 09/09/2017 Patient Education: Patient Medication Summary Completed 09/09/2017 Care Plan: Referral Order SNOMED-CT : [id number] Pending 09/09/2017 Appointment: Elina Rivera [facility]Ptel[phone] [facility] - Annual Wellness Visit 04/25/2017 Visit [...] prn. 03/25/2017 Appointment: Tamara Jones WPtel: [phone] [facility] (15 min) Moderate 03/25/2017 Patient Education: Patient Medication Summary Completed 03/25/2017 Patient Education: Obesity Completed 03/25/2017 Visit Plan: Low back pain-plan to i ncrease gabapentin-use hydrocodone for break through pain-discussed PT-patient to make appt with Dr Aguilera to discuss further treatment options 12/16/2016 Appointment: Elina Rivera WPtel: [phone] [phone] (15 min) Moderate 12/16/2016 Patient Education: Patient [...] worsen. 12/05/2016 Appointment: Evelyn Orosco WPtel: [phone] [phone] (30 min) Complex 12/05/2016 Patient Education: Patient Medication Summary Completed 12/05/2016 Visit Plan: Wound Instructions - Pt was instructed to keep the wound clean, wash with antibacterial soap, use triple antibiotic ointment, call if redness, pustular drainage, or any other acute concerns. 10/22/2016 Appointment: Elina Rivera WPtel: [phone] [phone] (15 min) Moderate 10/22/2016 Patient Education: Patient [...] SSRI 09/25/2016 Appointment: Tamara Jones WPtel: [phone] [facility] (15 min) Moderate 09/25/2016 Patient Education: Patient Medication Summary Completed 09/25/2016 Patient Education: Obesity Completed 09/25/2016 Care Plan: SCREENINGMAMMOGRAPHYDIGITAL LOINC : 31143-9 Pending 09/25/2016 Visit Plan: Hypertension - well [...] antidepressnat as prescribed. 05/29/2016 App[facility]ment[phone] (15 min) Moderate 05/29/2016 Patient Education: [...] care surrogate. 04/19/2016 [facility]: [phone] [facility] - Annual Wellness Visit 04/19/2016 Patient [...] SSRI 04/17/2016 Appointment: Karen Tamara WPtel: [phone] [facility] (15 min) Moderate 04/17/2016 Patient Education: Patient [...] medications. 10/12/2015 Appointment: Tamara Jones WPtel: [phone] [facility] (30 min) Complex 10/12/2015 Patient Education: Patient [...] worsen. 11/03/2014 Appointment: [facility] Jones [facility]el[phone] [facility] [place] ([place] New Patient 11/03/2014 Patient [...] readings at home. [place] [facility] . Wound Instructions - Pt was [...]
--- OUTSIDE RECORDS SUMMARY | 2019-09-24 08:50 | XMS REPORT | CCD ---
Author Author Marjorie Jones Organization Tamara Jones MD, [facility] Address [address] [place] [address] Phone Care Team Providers Care Archivist Economic History Name Role Phone PP Unavailable CCM Unavailable Summary Purpose Interface Exchange Insurance Providers Payer name Policy type / Coverage type Covered constitution party ID Effective Begin Date Effective End Date [place] [employer] Medicare Part B [id number] Unknown [facility] icare Part B [id number] Un known Family history Mother Diagnosis Age At Onset Diabetes mellitus Type 2 Unknown Father Diagnosis Age At Onset Depression Unknown Hyperlipidemia Unknown Hypertension Unknown Stroke Unknown Coronary Artery Disease Unknown Social History Social History Element Codes Description Effective Dates Marital status Unknown M arried Walter 11/03/2014 Number of children Unknown 0 11/03/2014 Employment Unknown Curre ntly unemployed 11/03/[address]: 3998853 Quit over 10 years ago 199911/03/2014 Alcohol history Unknown occasionally drinks alcohol 2 per month 11/03/2014 Allergies, Adverse Reactions, Alerts Substance Reaction Codes Entered Date Inactivated Date Status * NO KNOWN DRUG DAVID RGIES Unknown 11/03/2014 No Inactive Date Active Past Medical History Illness Codes Condition Status Onset Date Resolved Date Acute bronchitis due to other specified organisms ICD-9: 466.0 ICD-10: J20.8 Active 02/18/2018 Unknown Cough ICD-9: 786.2 ICD-10: R05 Active 02/18/2018 Unknown Essential (primary) hypertension ICD-9: 401.1 ICD-10: I10 Active 09/25/2016 Unknown Low back pain ICD-9: 724.2 ICD-10: M54.5 Active 10/11/2015 Unknown Mixed hyperlipidemia ICD-9: 272.4 ICD-10: E78.2 Active 11/02/2014 Unknown Spinal stenosis, lum bosacral region ICD-9: 724.02 ICD-10: M48.07 Active 09/09/2017 Unknown Pain in left hip ICD-9: 719.45 ICD-10: M25.552 Active 12/05/2016 Unknown Pain in right hip ICD-9: 719.45 ICD-10: M25.551 Active 04/16/2016 Unknown Sciatica, left side ICD- 9: 724.3 [...] Codes Effectiv e Dates Condition Status Acute bronchitis due to other specified organisms ICD-9: 466.0 ICD-10: J20.8 02/18/2018 Active Cough ICD-9: 786.2 ICD-10: R05 02/18/2018 Active Essential (primary) hypertension ICD-9: 401.1 ICD-10: I10 09/25/2016 Active Low back pain ICD-9: 724.2 ICD-10: M54.5 10/11/2015 Active Mixed hyperlipidemia ICD-9: 272.4 ICD-10: E78.2 11/02/2014 Active Spinal stenosis, lum bosacral region ICD-9: 724.02 ICD-10: M48.07 09/09/2017 Active Pain in left hip ICD-9: 719.45 ICD-10: M25.552 12/05/2016 Active Pain in right hip ICD-9: 719.45 ICD-10: M25.551 04/16/2016 Active Sciatica, left side ICD- 9: 724.3 [...] Instruc tions Start Date Stop Date Sta s Fill Instructions escitalopram 10 mg t ablet RxNorm: 416925 TAKE ONE TABLET BY MO UTH ONCE DAILY IN THE EVENING 06/18/2018 No Stop Date Active gabapentin 100 mg ca psule RxNorm: 124983 TAKE 1 CAPSULE BY SCOTT TH ONCE DAILY IN THE MORNING 06/11/2018 No Stop Date Active Lipitor 20 mg tablet RxNorm: 654303 TAKE ONE TABLET BY MOUTH THREE TIMES [facility] 05/06/2018 No Stop Date Active hydrocodone 7.5 mg-a cetaminophen 325 mg tablet RxNorm: 331481 1 Tablet(s) PO TID 04/30/2018 05/29/2018 In active hydrocodone 7.5 mg-a cetaminophen 325 mg tablet RxNorm: 472407 1 Tablet(s) PO TID 03/26/2018 04/24/2018 In active prednisone 20 mg tablet RxNorm: 675201 2 Tablet(s) PO daily 02/18/2018 02/22/2018 Inactive Ventolin HFA 90 mcg/ actuation aerosol inhaler RxNorm: 845301 2 INH TID x 1 week th en twice daily x 5 days then as needed. 02/18/2018 04/18/2018 Inactive plea se give pt a spacer cefdinir 300 mg capsule RxNorm: 466435 1 Capsule(s) PO BID 02/18/2018 02/24/2018 Inactive memantine 10 mg tablet RxNorm: 439144 1/2 tab nightly x1wk then 1/2tab bid x1w k then 1/2tab am and 1tab hs x1wk then 1 Tablet(s) PO BID 01/08/2018 08/05/2018 Active hydrocodone 7.5 mg-a cetaminophen 325 mg tablet RxNorm: 652922 1 Tablet(s) PO TID 01/08/2018 02/06/2018 In active gabapentin 100 mg ca psule RxNorm: 131784 TAKE 1 CAPSULE BY SCOTT ONCE DAILY IN THE MORNING 12/24/2017 06/10/2018 Inactive hydrocodone 7.5 mg-a cetaminophen 325 mg tablet RxNorm: 492902 1-2 Tablet(s) PO Q6 a s needed 12/01/2017 12/22/2017 Inactive diclofenac sodium 75 mg tablet,delayed release RxNorm: 825761 TAKE ONE TABLET BY [facility] TWICE DAILY 11/10/2017 No Stop Date Active hydrocodone 7.5 mg-a cetaminophen 325 mg tablet RxNorm: 235090 1-2 Tablet(s) PO Q6 a s needed 10/17/2017 11/07/2017 Inactive hydrocodone 7.5 mg-a cetaminophen 325 mg tablet RxNorm: 563488 1-2 Tablet(s) PO Q6 a s needed 09/01/2017 09/22/2017 Inactive hydrocodone 7.5 mg-a cetaminophen 325 mg tablet RxNorm: 859177 1-2 Tablet(s) PO Q6 a s needed 08/25/2017 08/31/2017 Inactive lisinopril 10 mg-hyd rochlorothiazide 12.5 mg tablet RxNorm: 823014 Tablet(s) TAKE ONE TABLET BY MOUTH ONCE DAILY 07/14/2017 07/08/2018 Active hydrocodone 7.5 mg-a cetaminophen 325 mg tablet RxNorm: 298154 1-2 Tablet(s) PO Q6 a s needed 07/14/2017 08/04/2017 Inactive gabapentin 100 mg ca psule RxNorm: 592091 1 Capsule(s) PO QAM 06/23/2017 12/19/2017 Inactive hydrocodone 7.5 mg-a cetaminophen 325 mg tablet RxNorm: 019870 1-2 Tablet(s) PO Q6 a s needed 05/20/2017 06/10/2017 Inactive Lipitor 20 mg tablet RxNorm: 017555 1 Tablet(s) PO TIW 05/13/2017 05/05/2018 Inactive escitalopram 10 mg t ablet RxNorm: 527953 1 Tablet(s) PO QPM 05/13/2017 05/07/2018 Inactive escitalopram 10 mg t ablet RxNorm: 551629 1 Tablet(s) PO QPM 04/16/2017 05/12/2017 Inactive lisinopril 10 mg-hyd rochlorothiazide 12.5 mg tablet RxNorm: 332975 TAKE ONE TABLET BY MOUTH ONCE DAILY 04/15/2017 07/13/2017 Inactive escitalopram 10 mg t ablet RxNorm: 841286 1 Tablet(s) PO QPM 04/09/2017 04/15/2017 Inactive hydrocodone 7.5 mg-a cetaminophen 325 mg tablet RxNorm: 378258 1-2 Tablet(s) PO Q6 a s needed 03/17/2017 04/07/2017 Inactive hydrocodone 7.5 mg-a cetaminophen 325 mg tablet RxNorm: 866629 1-2 Tablet(s) PO Q6 a s needed 12/27/2016 01/17/2017 Inactive gabapentin 100 mg ca psule RxNorm: 749479 1 Capsule(s) PO QAM 12/16/2016 06/13/2017 Inactive prednisone 20 mg tablet RxNorm: 873440 2 Tablet(s) PO daily 12/06/2016 12/05/2016 Inactive prednisone 20 mg tablet RxNorm: 601408 2 Tablet(s) PO daily 12/06/2016 12/15/2016 Inactive Kenalog 40 mg/mL christoph pension for injection RxNorm: 7041863 1 Milliliter(s) Inj 12/05/2016 12/05/2016 In active diclofenac sodium 75 mg tablet,delayed release RxNorm: 630288 1 Tablet(s) PO BID 10/30/2016 10/24/2017 In active hydrocodone 7.5 mg-a cetaminophen 325 mg tablet RxNorm: 047906 1-2 Tablet(s) PO Q6 a s needed 10/23/2016 11/13/2016 Inactive hydrocodone 7.5 mg-a cetaminophen 325 mg tablet RxNorm: 530720 1-2 Tablet(s) PO Q6 a s needed 08/16/2016 09/06/2016 Inactive lisinopril 10 mg-hyd rochlorothiazide 12.5 mg tablet RxNorm: 684151 TAKE ONE TABLET BY MOUTH ONCE DAILY 06/07/2016 04/14/2017 Inactive Lipitor 40 mg tablet RxNorm: 992410 1 Tablet(s) PO TIW 05/31/2016 05/01/2017 Inactive Lipitor 20 mg tablet RxNorm: 453504 1 Tablet(s) PO TIW 05/29/2016 05/30/2016 Inactive hydrocodone 7.5 mg-a cetaminophen 325 mg tablet RxNorm: 347602 1-2 Tablet(s) PO Q6 a s needed 05/23/2016 06/13/2016 Inactive escitalopram 10 mg t ablet RxNorm: 154352 1 Tablet(s) PO QPM st art at 1/2 pill nightly x 1wk then a full pill thereafter 04/17/2016 04/08/2017 Inactive hydrocodone 7.5 mg-a cetaminophen 325 mg tablet RxNorm: 486844 1-2 Tablet(s) PO Q6 a s needed 02/28/2016 03/20/2016 Inactive hydrocodone 7.5 mg-a cetaminophen 325 mg tablet RxNorm: 787331 1-2 Tablet(s) PO Q6 a s needed 12/04/2015 12/25/2015 Inactive diclofenac sodium 75 mg tablet,delayed release RxNorm: 399343 1 Tablet(s) PO BID 10/23/2015 10/16/2016 In active hydrocodone 7.5 mg-a cetaminophen 325 mg tablet RxNorm: 470328 1-2 Tablet(s) PO Q6 a s needed 09/12/2015 12/03/2015 Inactive promethazine 25 mg t ablet RxNorm: 877998 1 Tablet(s) PO Q6 as needed 08/30/2015 No Stop Date Active lisinopril 10 mg-hyd rochlorothiazide 12.5 mg tablet RxNorm: 978215 1 Tablet(s) PO daily 05/09/2015 05/02/2016 Inactive hydrocodone 7.5 mg-a cetaminophen 325 mg tablet RxNorm: 828855 1-2 Tablet(s) PO Q6 a s needed 04/17/2015 09/11/2015 Inactive lisinopril 10 mg-hyd rochlorothiazide 12.5 mg tablet RxNorm: 180727 1 Tablet(s) PO daily 01/31/2015 05/08/2015 Inactive hydrocodone 7.5 mg-a cetaminophen 325 mg tablet RxNorm: 580009 1-2 Tablet(s) PO Q6 a s needed 01/18/2015 04/16/2015 Inactive diclofenac sodium 75 mg tablet,delayed release RxNorm: 408954 1 Tablet(s) PO BID 01/18/2015 10/14/2015 In active Voltaren 1 % topical gel RxNorm: 873379 4 Gram(s) TOP QID chelsie ly to sacroiliac joint 11/03/2014 05/15/2015 In active lisinopril 10 mg-hyd rochlorothiazide 12.5 mg tablet RxNorm: 660579 1 Tablet(s) PO daily 11/03/2014 12/02/2014 Inactive B-12 Plus sublingual RxNorm: 48961 sublingual No Start Date Active amoxicillin 500 mg c apsule RxNorm: 400431 4 Capsule(s) PO as do ctor directed 1 hours before appt No Start Date Active gabapentin 300 mg ca psule RxNorm: 534292 1 Capsule(s) PO QHS No Start Date Active promethazine 25 mg t ablet RxNorm: 947774 1 Tablet(s) PO Q6 as needed No Start Date 08/29/2015 Inactive diclofenac sodium 75 mg tablet,delayed release RxNorm: 593614 1 Tablet(s) PO BID No Start Date 01/17/2015 Inactive hydrocodone 7.5 mg-a cetaminophen 325 mg tablet RxNorm: 053897 1-2 Tablet(s) PO Q6 a s needed No Start Date 01/17/2015 Inactive Crestor 5 mg tablet RxNorm: 922456 1 Tablet(s) PO 3 x week No Start Date 05/28/2016 Inactive Medication Administered Medication Codes Instruc tions Start Date Status Kenalog 40 mg/mL suspension for injection RxNorm: 1139776 1Milliliter 12/05/2016 N o longer Active Immunizations No Immunization data Assessments Condition Codes Effectiv e Dates Acute bronchitis due to other specified organisms ICD-10: J20.8 ICD-9: 466.0 02/18/2018 Cough ICD-10: R05 ICD-9: 786.2 02/18/2018 Mixed hyperlipidemia ICD-10: E78.2 ICD-9: 272.4 01/08/2018 Essential (primary) hypertension ICD -10: I10 ICD-9: 401.1 01/08/2018 Low back pain ICD-10: M54.5 ICD-9: 724.2 01/08/2018 Spinal stenosis, lumbosacral region ICD-10: M48.07 ICD-9: 724.02 01/08/2018 Pain in left hip ICD-10: M25.552 ICD-9: 719.45 03/25/2017 Pain in right hip ICD-10: M25.551 ICD-9: 719.45 03/25/2017 Sciatica, left side ICD-10: M54.32 ICD-9: 724.3 12/16/2016 Sacroiliitis, not elsewhere classified ICD-10: M46.1 ICD-9: 720.2 12/05/2016 Actinic keratosis ICD-10: L57.0 ICD-9: 702.0 10/22/2016 Major depressive disorder, recurrent, mild ICD-10: F33.0 ICD-9: 296.31 09/25/2016 Encounter for screening mammogram for ma lignant neoplasm of breast ICD-10: Z12.31 ICD-9: V76.12 09/25/2016 Mixed hyperlipidemia ICD-10: E78.2 ICD-9: 272.2 09/25/2016 Major depressive disorder, recurrent, moderate ICD-10: F33.1 ICD-9: 296.32 05/29/2016 Essential (primary) hypertension ICD -10: I10 ICD-9: 401.9 05/29/2016 Encounter for general adult medical exam ination with abnormal findings ICD-10: Z00.01 ICD-9: V70.0 04/19/2016 Vitamin B12 deficiency anemia, unspecified ICD-10: D51.9 ICD-9: 281.1 07/11/2015 Sciatica, right side ICD-10: M54.31 ICD-9: 724.3 05/16/2015 ESSENTIAL HYPERTENSION ICD-9: 401.9 11/03/2014 Sacroiliitis ICD-9: 720.2 11/03/2014 HYPERLIPIDEMIA ICD-9: 272.4 11/03/2014 OSTEOARTH NOS-UNSPEC ICD-9: 715.90 11/03/2014 Reason For Visit Reason For Visit Effective Dates Notes cough 02/18/2018 hypertension 01/08/2018 hypertension 09/09/2017 hypertension 03/25/2017 sciatica 12/16/2016 ongo ing sciatica 12/05/2016 skin lesion 10/22/2016 hypertension 09/25/2016 hypertension 05/29/2016 Annual Medicare Wellness Exam 04/19/2016 hypertension 04/17/2016 back pain 10/12/2015 back pain 07/11/2015 back pain 05/16/2015 hypertension 11/03/2014 Results Observation Observation Code Item Item Code Result Date Cbc With Differential Ord2 WBC 10.84 K/ul [...] 31.5 pg 01/14/2018 Cbc With Differential Ord2 [place]% 8.5 % 01/14/2018 Cbc With Differential Ord2 [...] 3.44 K/ul 01/14/2018 Cbc With Differential Ord2 [place] ABS# 0.9 K/ul 01/14/2018 Cbc With Differential Ord2 Eos ABS# 0.3 K/ul 01/14/2018 Cbc With Differential Ord2 Baso ABS# 0.0 K/ul 01/14/2018 Lipid Ord30 CHOL 193 mg/dL 01/14/2018 Lipid Ord30 HDL 40.0 mg/dl 01/14/2018 Lipid Ord30 TRIG 185 mg/dL 01/14/2018 Lipid Ord30 LDL 116 mg/dL 01/14/2018 Lipid Ord30 C/HDL 4.8 Ratio 01/14/2018 Tsh Ord6 TSH (3rd IS) 2.04 uIU/mL 01/14/2018 Comp Metabolic Iwf120 NA 140 mEq/L 01/14/2018 Comp Metabolic Kyw873 K 3.8 mEq/L 01/14/2018 Comp Metabolic Awa738 CL 101 mEq/L 01/14/2018 Comp Metabolic Trq364 CO2 30.0 mEq/L 01/14/2018 Comp Metabolic Jyb089 AN ION GAP 13 01/14/2018 Comp Metabolic Vwp978 GL UCOSE 89 mg/dL 01/14/2018 Comp Metabolic Qiq168 Cr eat 1.0 mg/dL 01/14/2018 Comp Metabolic Mox314 eG FR 63 ml/min/1.73m2 01/14 Comp Metabolic Kjv619 BUN 16 mg/dL 01/14/2018 Comp Metabolic Yhe284 B/ C Ratio 16.8 Ratio 01/14/2018 Comp Metabolic Lar571 CA LCIUM 9.2 mg/dL 01/14/2018 Comp Metabolic Yfl959 AL K PHOS 88 U/L 01/14/2018 Comp Metabolic Vzd539 T(SGOT) 13 U/L 01/14/2018 Comp Metabolic Qvv460 AL T(SGPT) 9 U/L 01/14/2018 Comp Metabolic Nkd021 BI LI T 0.5 mg/dL 01/14/2018 Comp Metabolic Mbe372 AL BUMIN 4.0 g/dL 01/14/2018 Comp Metabolic Ntl921 TP RO 6.5 g/dL 01/14/2018 Comp Metabolic Ujs810 GL OB 2.5 g/dL 01/14/2018 Comp Metabolic Awm279 A/ G Ratio 1.6 Ratio 01/14/2018 Comp Metabolic Ygr417 Os mo 280 mOsmo 01/14/2018 Comp Metabolic Qhy029 NA 140 mEq/L 09/10/2017 Comp Metabolic Arx734 K 4.2 mEq/L 09/10/2017 Comp Metabolic Shl531 CL 107 mEq/L 09/10/2017 Comp Metabolic Bwt101 CO2 25.0 mEq/L 09/10/2017 Comp Metabolic Dgu886 AN ION GAP 12 09/10/2017 Comp Metabolic Cvo875 GL UCOSE 84 mg/dL 09/10/2017 Comp Metabolic Quo136 Cr eat 0.7 mg/dL 09/10/2017 Comp Metabolic Dyd136 eG FR 85 ml/min/1.73m2 09/10 Comp Metabolic Prd142 BUN 11 mg/dL 09/10/2017 Comp Metabolic Bzh291 B/ C Ratio 15.1 Ratio 09/10/2017 Comp Metabolic Yyp269 CA LCIUM 9.1 mg/dL 09/10/2017 Comp Metabolic Zdy269 AL K PHOS 61 U/L 09/10/2017 Comp Metabolic Yav648 T(SGOT) 38 U/L 09/10/2017 Comp Metabolic Jbx773 AL T(SGPT) 24 U/L 09/10/2017 Comp Metabolic Oqb064 BI LI T 0.5 mg/dL 09/10/2017 Comp Metabolic Gla464 AL BUMIN 4.0 g/dL 09/10/2017 Comp Metabolic Sbm236 TP RO 6.6 g/dL 09/10/2017 Comp Metabolic Wui346 GL OB 2.6 g/dL 09/10/2017 Comp Metabolic Vfb344 A/ G Ratio 1.6 Ratio 09/10/2017 Comp Metabolic Xfb171 Os mo 278 mOsmo 09/10/2017 Lipid Ord30 CHOL 148 mg/dL 09/10/2017 Lipid Ord30 HDL 41.0 mg/dl 09/10/2017 Lipid Ord30 TRIG 66 mg/dL 09/10/2017 Lipid Ord30 LDL 94 mg/dL 09/10/2017 Lipid Ord30 C/HDL 3.6 Ratio 09/10/2017 Tsh Ord6 TSH (3rd IS) 1.22 uIU/mL 09/10/2017 Cbc With Differential Ord2 WBC 5.41 [...] 31.0 pg 09/10/2017 Cbc With Differential Ord2 [place]% 9.2 % 09/10/2017 Cbc With Differential Ord2 [...] 1.82 K/ul 09/10/2017 Cbc With Differential Ord2 [place] ABS# 0.5 K/ul 09/10/2017 Cbc With Differential Ord2 Eos ABS# 0.1 K/ul 09/10/2017 Cbc With Differential Ord2 Baso ABS# 0.0 K/ul 09/10/2017 Tsh Ord6 hTSH II 1.57 uIU/mL 09/25/2016 Comp Metabolic Vjh742 NA 139 mEq/L 09/25/2016 Comp Metabolic Dac146 K 4.5 mEq/L 09/25/2016 Comp Metabolic Kkj231 CL 102 mEq/L 09/25/2016 Comp Metabolic Wmx290 CO2 29.0 mEq/L 09/25/2016 Comp Metabolic Ifv522 AN ION GAP 13 09/25/2016 Comp Metabolic Ziu753 GL UCOSE 84 mg/dL 09/25/2016 Comp Metabolic Oos734 Cr eat 0.9 mg/dL 09/25/2016 Comp Metabolic Cwn517 eG FR 70 ml/min/1.73m2 09/25 Comp Metabolic Koj110 BUN 21 mg/dL 09/25/2016 Comp Metabolic Edf820 B/ C Ratio 24.1 Ratio 09/25/2016 Comp Metabolic Uzg689 CA LCIUM 9.2 mg/dL 09/25/2016 Comp Metabolic Abr282 AL K PHOS 89 U/L 09/25/2016 Comp Metabolic Czy674 T(SGOT) 19 U/L 09/25/2016 Comp Metabolic Ylh509 AL T(SGPT) 19 U/L 09/25/2016 Comp Metabolic Yim983 BI LI T 0.5 mg/dL 09/25/2016 Comp Metabolic Kxs784 AL BUMIN 4.1 g/dL 09/25/2016 Comp Metabolic Ooa330 TP RO 6.5 g/dL 09/25/2016 Comp Metabolic Kes626 GL OB 2.4 g/dL 09/25/2016 Comp Metabolic Sfu474 A/ G Ratio 1.7 Ratio 09/25/2016 Comp Metabolic Ajm558 Os mo 280 mOsmo 09/25/2016 Cbc With [...] 32.2 pg 09/25/2016 Cbc With Differential Ord2 [place]% 7.7 % 09/25/2016 Cbc With Differential Ord2 [...] 2.84 K/ul 09/25/2016 Cbc With Differential Ord2 [place] ABS# 0.7 K/ul 09/25/2016 Cbc With Differential Ord2 Eos ABS# 0.3 K/ul 09/25/2016 Cbc With Differential Ord2 Baso ABS# 0.0 K/ul 09/25/2016 Lipid Ord30 CHOL 185 mg/dL 09/25/2016 Lipid Ord30 HDL 54.0 mg/dl 09/25/2016 Lipid Ord30 TRIG 94 mg/dL 09/25/2016 Lipid Ord30 LDL 112 mg/dL 09/25/2016 Lipid Ord30 C/HDL 3.4 Ratio 09/25/2016 Comp Metabolic Hjj220 NA 135 mEq/L 04/19/2016 Comp Metabolic Ycx641 K 4.2 mEq/L 04/19/2016 Comp Metabolic Gui561 CL 97 mEq/L 04/19/2016 Comp Metabolic Dxo821 CO2 28.0 mEq/L 04/19/2016 Comp Metabolic Saw691 AN ION GAP 14 04/19/2016 Comp Metabolic Res424 GL UCOSE 89 mg/dL 04/19/2016 Comp Metabolic Cjo916 Cr eat 0.8 mg/dL 04/19/2016 Comp Metabolic Mlt357 eG FR 77 ml/min/1.73m2 04/19 Comp Metabolic Csk610 BUN 17 mg/dL 04/19/2016 Comp Metabolic Qan653 B/ C Ratio 21.3 Ratio 04/19/2016 Comp Metabolic Gpp401 CA LCIUM 9.8 mg/dL 04/19/2016 Comp Metabolic Chz205 AL K PHOS 89 U/L 04/19/2016 Comp Metabolic Dnx787 T(SGOT) 16 U/L 04/19/2016 Comp Metabolic Bzq966 AL T(SGPT) 13 U/L 04/19/2016 Comp Metabolic Dmq401 BI LI T 0.4 mg/dL 04/19/2016 Comp Metabolic Hor842 AL BUMIN 4.5 g/dL 04/19/2016 Comp Metabolic Ejj705 TP RO 7.2 g/dL 04/19/2016 Comp Metabolic Rca969 GL OB 2.7 g/dL 04/19/2016 Comp Metabolic Adr345 A/ G Ratio 1.7 Ratio 04/19/2016 Comp Metabolic Lap423 Os mo 271 mOsmo 04/19/2016 Tsh Ord6 [...] 30.9 pg 04/19/2016 Cbc With Differential Ord2 [place]% 6.4 % 04/19/2016 Cbc With Differential Ord2 [...] 3.43 K/ul 04/19/2016 Cbc With Differential Ord2 [place] ABS# 0.7 K/ul 04/19/2016 Cbc With Differential Ord2 Eos ABS# 0.2 K/ul 04/19/2016 Cbc With Differential Ord2 Baso ABS# 0.0 K/ul 04/19/2016 Lipid Ord30 CHOL 283 mg/dL 04/19/2016 Lipid Ord30 HDL 56.0 mg/dl 04/19/2016 Lipid Ord30 TRIG 115 mg/dL 04/19/2016 Lipid Ord30 LDL 204 mg/dL 04/19/2016 Lipid Ord30 C/HDL 5.1 Ratio 04/19/2016 Cbc With Differential Ord2 WBC 7.43 K/ul [...] 30.8 pg 07/11/2015 Cbc With Differential Ord2 [place]% 7.8 % 07/11/2015 Cbc With Differential Ord2 [...] 2.75 K/ul 07/11/2015 Cbc With Differential Ord2 [place] ABS# 0.6 K/ul 07/11/2015 Cbc With Differential Ord2 Eos ABS# 0.4 K/ul 07/11/2015 Cbc With Differential Ord2 Baso ABS# 0.1 K/ul 07/11/2015 Cbc With Differential Ord2 New Analyzer Notice Please note new ref ranges s tarting 05-24-2015 due to implemntation of new five part differential hematolgy analyzer. 07/11/2015 Comp Metabolic Qau856 NA 137 mEq/L 07/11/2015 Comp Metabolic Kio690 K 4.4 mEq/L 07/11/2015 Comp Metabolic Ics227 CL 100 mEq/L 07/11/2015 Comp Metabolic Ode332 CO2 25.0 mEq/L 07/11/2015 Comp Metabolic Fyv293 AN ION GAP 16 07/11/2015 Comp Metabolic Sll385 GL UCOSE 75 mg/dL 07/11/2015 Comp Metabolic Ith770 Cr eat 0.8 mg/dL 07/11/2015 Comp Metabolic Hsg532 eG FR 76 ml/min/1.73m2 07/10 Comp Metabolic Zgx522 BUN 18 mg/dL 07/11/2015 Comp Metabolic Qci308 B/ C Ratio 22.2 Ratio 07/11/2015 Comp Metabolic Rni908 CA LCIUM 9.5 mg/dL 07/11/2015 Comp Metabolic Fji470 AL K PHOS 92 U/L 07/11/2015 Comp Metabolic Dwg733 T(SGOT) 16 U/L 07/11/2015 Comp Metabolic Xoj202 AL T(SGPT) 18 U/L 07/11/2015 Comp Metabolic Qky824 BI LI T 0.6 mg/dL 07/11/2015 Comp Metabolic Pfs753 AL BUMIN 4.3 g/dL 07/11/2015 Comp Metabolic Izm505 TP RO 6.7 g/dL 07/11/2015 Comp Metabolic Hxz829 GL OB 2.4 g/dL 07/11/2015 Comp Metabolic Xva287 A/ G Ratio 1.7 Ratio 07/11/2015 Comp Metabolic Pxf371 Os mo 274 mOsmo 07/11/2015 Lipid Ord30 CHOL 197 mg/dL 07/11/2015 Lipid Ord30 HDL 55.0 mg/dl 07/11/2015 Lipid Ord30 TRIG 126 mg/dL 07/11/2015 Lipid Ord30 LDL 117 mg/dL 07/11/2015 Lipid Ord30 C/HDL 3.6 Ratio 07/11/2015 B12 Meo278 B12 >1500.00 pg/ml 07/11/2015 Tsh Ord6 hTSH II 1.91 uIU/mL 07/11/2015 Review of Systems System Result Effective Dates Constitutional recent illness 02/18/2018 Constitutional No anorexia [...] Procedure Codes Date DRAIN/INJECT JOINT/B URSA CPT-4: 73837 12/05/2016 TRIAMCINOLONE ACET I [place] NOS CPT-4: J3301 12/05/2016 DESTRUCT PREMALG LESION CPT-4: 39281 10/22/2016 PPPS, SUBSEQ VISIT CPT- 4: G0439 04/19/2016 Vital Signs Date Vital 02/18/2018 Blood Pressure 1: 100/52 Code: 8480-6 BMI: 31.9 Code: 91013-9 Heart Rate 1: 92 bpm Height: 5'3" SpO2: 90% Temperature: 36.6 (C ) / 97.9 (F) Weight: 180 lbs 01/08/2018 Blood Pressure 1: 140/80 Code: 8480-6 BMI: 32.6 Code: 67390-1 Heart Rate 1: 82 bpm Height: 5'3" SpO2: 92% Weight: 184 lbs 09/09/2017 Blood Pressure 1: 118/62 Code: 8480-6 BMI: 32.4 Code: 70361-8 Heart Rate 1: 80 bpm Height: 5'3" SpO2: 94% Weight: 183 lbs 03/25/2017 Blood Pressure 1: 122/68 Code: 8480-6 BMI: 31.2 Code: 58897-1 Heart Rate 1: 91 bpm Height: 5'3" SpO2: 95% Weight: 176 lbs 12/16/2016 Blood Pressure 1: 148/82 Code: 8480-6 Heart Rate 1: 77 bpm Height: 5'3" SpO2: 96% 12/05/2016 Blood Pressure 1: 138/72 Code: 8480-6 Heart Rate 1: 84 bpm Height: 5'3" SpO2: 92% Weight: 10/22/2016 Blood Pressure 1: 136/78 Code: 8480-6 BMI: 30.1 Code: 76125-8 Heart Rate 1: 70 bpm Height: 5'3" SpO2: 95% Weight: 170 lbs 09/25/2016 Blood Pressure 1: 122/72 Code: 8480-6 BMI: 29.8 Code: 55680-6 Heart Rate 1: 67 bpm Height: 5'3" SpO2: 97% Weight: 168 lbs 05/29/2016 Blood Pressure 1: 112/70 Code: 8480-6 BMI: 27.8 Code: 25516-7 Heart Rate 1: 102 bpm Height: 5'3" SpO2: 98% Weight: 157 lbs 04/19/2016 Blood Pressure 1: 128/58 Code: 8480-6 BMI: 28.5 Code: 79800-2 Heart Rate 1: 85 bpm Height: 5'3" SpO2: 98% Waist Measure (cm): 81 cm Weight: 161 lbs 04/17/2016 Blood Pressure 1: 128/82 Code: 8480-6 BMI: 28.5 Code: 08022-7 Heart Rate 1: 85 bpm Height: 5'3" SpO2: 98% Weight: 161 lbs 10/12/2015 Blood Pressure 1: 124/68 Code: 8480-6 BMI: 28.2 Code: 99336-0 Heart Rate 1: 72 bpm Height: 5'3" SpO2: 98% Weight: 159 lbs 07/11/2015 Blood Pressure 1: 128/88 Code: 8480-6 BMI: 28.5 Code: 88296-8 Heart Rate 1: 73 bpm Height: 5'3" SpO2: 93% Weight: 161 lbs 05/16/2015 Blood Pressure 1: 120/82 Code: 8480-6 BMI: 28.3 Code: 10215-5 Heart Rate 1: 82 bpm Height: 5'3" SpO2: 93% Weight: 160 lbs 11/03/2014 Blood Pressure 1: 132/74 Code: 8480-6 BMI: 27.6 Code: 88108-8 Heart Rate 1: 80 bpm Height: 5'3" SpO2: 98% Weight: 156 lbs Functional Status No Functional Status data History of Present Illness Symptom Name Status Resu lt Effective Date Notes cough Location in the alfie ng 02/18/2018 [...] Encounters Encounter Performer Loca tion Codes Date ([id number]) [id number] EST. P ATIENT, LEVEL III Diagnosis: Acute bronchitis due to other specified organisms[ICD10: J20.8] Diagnosis: Cough[ICD10: R05] [facility] CPT-4: 68439 02/18/2018 ([id number]) [id number] EST. P ATIENT, LEVEL IV Diagnosis: Essential (primary) hypertension[ICD10: I10] Diagnosis: Low back pain[ICD10: M54.5] Diagnosis: Spinal stenosis, lumbosacral region[ICD10: M48.07] Diagnosis: Mixed hyperlipidemia[ICD10: E78.2] Tamara Jones MD, [facility] CPT- 4: 32005 01/08/2018 ([id number]) 84741 EST. P ATIENT, LEVEL IV Diagnosis: Essential (primary) hypertension[ICD10: I10] Diagnosis: Low back pain[ICD10: M54.5] Diagnosis: Spinal stenosis, lumbosacral region[ICD10: M48.07] Tamara Jones MD, [facility] CPT-4: 30126 09/09/2017 ([id number]) [id number] EST. P ATIENT, LEVEL IV Diagnosis: Essential (primary) hypertension[ICD10: I10] Diagnosis: Mixed hyperlipidemia[ICD10: E78.2] Diagnosis: Low back pain[ICD10: M54.5] Diagnosis: Pain in right hip[ICD10: M25.551] Diagnosis: Pain in left hip[ICD10: M25.552] Tamara Jones MD, [facility] CPT-4: 60429 03/25/2017 ([id number]) 48503 EST. P ATIENT, LEVEL III Diagnosis: Low back pain[ICD10: M54.5] Diagnosis: Sciatica, left side[ICD10: M54.32] Elina Jones MD, [facility] CPT-4: 90564 12/16/2016 [id number] EST. PATIENT, LEVEL III Diagnosis: Sacroiliitis, not elsewhere classified[ICD10: M46.1] Diagnosis: Sciatica, left side[ICD10: M54.32] Diagnosis: Pain in left hip[ICD10: M25.552] Evelyn Jones MD, [facility] CPT-4: 77723 12/05/2016 ([id number]) 45475 EST. P ATIENT, LEVEL IV Diagnosis: Encounter for screening mammogram for malignant neoplasm of breast[ICD10: Z12.31] Diagnosis: Essential (primary) hypertension[ICD10: I10] Diagnosis: Mixed hyperlipidemia[ICD10: E78.2] Diagnosis: Major depressive disorder, recurrent, mild[ICD10: F33.0] Tamara Jones MD, C CPT-4: 75735 09/25/2016 ([id number]) 12369 EST. P ATIENT, LEVEL IV Diagnosis: Essential (primary) hypertension[ICD10: I10] Diagnosis: Mixed hyperlipidemia[ICD10: E78.2] Diagnosis: Major depressive disorder, recurrent, moderate[ICD10: F33.1] Tamara Jones MD, [facility] CPT-4: 25674 05/29/2016 ([id number]) 95700 EST. P ATIENT, LEVEL IV Diagnosis: Essential (primary) hypertension[ICD10: I10] Diagnosis: Mixed hyperlipidemia[ICD10: E78.2] Diagnosis: Pain in right hip[ICD10: M25.551] Diagnosis: Major depressive disorder, recurrent, mild[ICD10: F33.0] Tamara Jones MD, C CPT-4: 16199 04/17/2016 ([id number]) 11972 EST. P ATIENT, LEVEL IV Diagnosis: Essential (primary) hypertension[ICD10: I10] Diagnosis: Low back pain[ICD10: M54.5] Diagnosis: Mixed hyperlipidemia[ICD10: E78.2] Tamara Jones MD, [facility] CPT- 4: 43489 10/12/2015 ([id number]) 96032 EST. P ATIENT, LEVEL III Diagnosis: Essential (primary) hypertension[ICD10: I10] Diagnosis: Mixed hyperlipidemia[ICD10: E78.2] Diagnosis: Vitamin B12 deficiency anemia, unspecified[ICD10: D51.9] Elina Jones MD, [facility] CPT-4: 96491 07/11/2015 ([id number]) 14767 EST. P ATIENT, LEVEL IV Diagnosis: Essential (primary) hypertension[ICD10: I10] Diagnosis: Low back pain[ICD10: M54.5] Diagnosis: Sciatica, right side[ICD10: M54.31] Elina Jones MD, [facility] CPT-4: 16658 05/16/2015 ([id number]) OFFICE VISI T, NEW - LEVEL 4 Diagnosis: ESSENTIAL HYPERTENSION[ICD9: 401.9] Diagnosis: HYPERLIPIDEMIA[ICD9: 272.4] Diagnosis: OSTEOARTH NOS-UNSPEC[ICD9: 715.90] Diagnosis: Sacroiliitis[ICD9: 720.2] [facility] CPT-4: 84725 11/03/2014 Plan of Care Planned Activity Notes C odes Status Date Appointment: Tamara Jones WPtel: [phone] [facility] (15 min) Moderate 06/15/2018 Appointment: Elina Rivera WPtel: [phone] [phone] [place] (15 min) Moderate 02/27/2018 Appointment: Elina Rivera WPtel: [phone] [phone] [place] (15 min) Moderate 02/23/2018 Visit Plan: Bronchitis - acute case of bronchitis identified. Pt has been given antibiotics, breathing treatments as appropriate, and pt has been instructed to call if symptoms are not improved, or if symptoms acutely worsen. 02/18/2018 Appointment: Tamara Jones WPtel: [phone] [facility] (15 min) Moderate 02/18/2018 Patient Education: Patient Medication Summary Completed 02/18/2018 Appointment: Tamara Jones WPtel: [phone] [facility] [place] (15 min) Moderate 02/16/2018 Visit Plan: [...] improving. 01/08/2018 Appointment: Tamara Jones WPtel: [phone] [facility] [place] (15 min) Moderate 01/08/2018 Patient Education: [...] mag lab 09/09/2017 Appointment: Tamara Jones WPtel: [phone] [facility] (15 min) Moderate 09/09/2017 Patient Education: Patient Medication Summary Completed 09/09/2017 Care Plan: Referral Order SNOMED-CT : [id number] Pending 09/09/2017 Appointment: Elina Rivera WPtel: [phone] [phone] [facility] - Annual Wellness Visit 04/25/2017 Visit [...] treatment/anti-inflammatory prn. 03/25/2017 Appointment: Tamara Jones WPtel: [phone] [facility] [place] (15 min) Moderate 03/25/2017 Patient Education: Patient Medication Summary Completed 03/25/2017 Patient Education: Obesity Completed 03/25/2017 Visit Plan: Low back pain-plan to i ncrease gabapentin-use hydrocodone for break through pain-discussed PT-patient to make appt with Dr Aguilera to discuss further treatment options 12/16/2016 Appointment: Elina Rivera WPtel: [address] [place], [place] [phone] (15 min) Moderate 12/16/2016 Patient Education: Patient [...] they worsen. 12/05/2016 Appointment: Evelyn Orosco WPtel: [address] [place], [place] [phone] (30 min) Complex 12/05/2016 Patient Education: Patient Medication Summary Completed 12/05/2016 Visit Plan: Wound Instructions - Pt was instructed to keep the wound clean, wash with antibacterial soap, use triple antibiotic ointment, call if redness, pustular drainage, or any other acute concerns. 10/22/2016 Appointment: Elina Rivera WPtel: [address] [place], [place] [phone] (15 min) Moderate 10/22/2016 Patient Education: Patient [...] SSRI 09/25/2016 Appointment: Tamara Jones WPtel: [phone] [facility] (15 min) Moderate 09/25/2016 Patient Education: Patient Medication Summary Completed 09/25/2016 Patient Education: Obesity Completed 09/25/2016 Care Plan: SCREENINGMAMMOGRAPHYDIGITAL LOINC : [id number] Pending 09/25/2016 Visit Plan: Hypertension - well [...] as prescribed. 05/29/2016 Appointment: Tamara Jones WPtel: [phone] [facility] [place] (15 min) Moderate 05/29/2016 Patient Education: [...] paperwork for health care surrogate. 04/19/2016 Appointment: [phone] [place] [address] - Annual Wellness Visit 04/19/2016 Patient Education: [...] for SSRI 04/17/2016 Appointment: Tamara Jones WPtel: [phone] [facility] [place] [address] (15 min) Moderate 04/17/2016 Patient Education: [...] medications. 10/12/2015 Appointment: Tamara Jones WPtel: [phone] [facility] [place] (30 min) Complex 10/12/2015 Patient Education: Patient [...] worsen. 11/03/2014 Appointment: Tamara Jones WPtel: [facility] [place] [place] ([place] New Patient 11/03/2014 Patient [...] pressure readings at home. [facility] [place] [facility] . Wound Instructions - Pt was [...]
--- OUTSIDE RECORDS SUMMARY | 2019-09-24 08:51 | XMS REPORT | CCD ---
Author Author Marjorie Jones Organization Tamara Jones MD, [facility] Address [address] [place] [address] Phone Care Team Providers Care Histotechnician Name Role Phone PP Unavailable CCM Unavailable Summary Purpose Interface Exchange Insurance Providers Payer name Policy type / Coverage type Covered libertarian ID Effective Begin Date Effective End Date [place] [employer] Medicare Part B [id number] Unknown [facility] icare Part B [id number] Un known Family history Mother Diagnosis Age At Onset Diabetes mellitus Type 2 Unknown Father Diagnosis Age At Onset Depression Unknown Hyperlipidemia Unknown Hypertension Unknown Stroke Unknown Coronary Artery Disease Unknown Social History Social History Element Codes Description Effective Dates Marital status Unknown M arried Walter 11/03/2014 Number of children Unknown 0 11/03/2014 Employment Unknown Curre ntly unemployed 11/03/[address]: 3574828 Quit over 10 years ago 199911/03/2014 Alcohol [...] Instruc tions Start Date Stop Date Sta Fill Instructions gabapentin 100 mg ca psule RxNorm: 574771 TAKE 1 CAPSULE BY [facility] ONCE DAILY IN THE MORNING 06/11/2018 No Stop Date Active Lipitor 20 mg tablet RxNorm: 910791 TAKE ONE TABLET BY MOUTH [facility] TIMES [facility] 05/06/2018 No Stop Date Active hydrocodone 7.5 mg-a cetaminophen 325 mg tablet RxNorm: 064829 1 Tablet(s) PO TID 04/30/2018 05/29/2018 In active hydrocodone 7.5 mg-a cetaminophen 325 mg tablet RxNorm: 149603 1 Tablet(s) PO TID 03/26/2018 04/24/2018 In active prednisone 20 mg tablet RxNorm: 343587 2 Tablet(s) PO daily 02/18/2018 02/22/2018 Inactive Ventolin HFA 90 mcg/ actuation aerosol inhaler RxNorm: 132818 2 INH TID x 1 week th en twice daily x 5 days then as needed. 02/18/2018 04/18/2018 Inactive plea se give pt a spacer cefdinir 300 mg capsule RxNorm: 384331 1 Capsule(s) PO BID 02/18/2018 02/24/2018 Inactive memantine 10 mg tablet RxNorm: 402153 1/2 tab nightly x1wk then 1/2tab bid x1w k then 1/2tab am and 1tab hs x1wk then 1 Tablet(s) PO BID 01/08/2018 08/05/2018 Active hydrocodone 7.5 mg-a cetaminophen 325 mg tablet RxNorm: 630152 1 Tablet(s) PO TID 01/08/2018 02/06/2018 In active gabapentin 100 mg ca psule RxNorm: 694726 TAKE 1 CAPSULE BY [facility] ONCE DAILY IN THE MORNING 12/24/2017 06/10/2018 Inactive hydrocodone 7.5 mg-a cetaminophen 325 mg tablet RxNorm: 512943 1-2 Tablet(s) PO Q6 a s needed 12/01/2017 12/22/2017 Inactive diclofenac sodium 75 mg tablet,delayed release RxNorm: 616318 TAKE ONE TABLET BY [facility] TWICE DAILY 11/10/2017 No Stop Date Active hydrocodone 7.5 mg-a cetaminophen 325 mg tablet RxNorm: 472690 1-2 Tablet(s) PO Q6 a s needed 10/17/2017 11/07/2017 Inactive hydrocodone 7.5 mg-a cetaminophen 325 mg tablet RxNorm: 079839 1-2 Tablet(s) PO Q6 a s needed 09/01/2017 09/22/2017 Inactive hydrocodone 7.5 mg-a cetaminophen 325 mg tablet RxNorm: 784390 1-2 Tablet(s) PO Q6 a s needed 08/25/2017 08/31/2017 Inactive lisinopril 10 mg-hyd rochlorothiazide 12.5 mg tablet RxNorm: 438360 Tablet(s) TAKE ONE TABLET BY MOUTH ONCE DAILY 07/14/2017 07/08/2018 Active hydrocodone 7.5 mg-a cetaminophen 325 mg tablet RxNorm: 073824 1-2 Tablet(s) PO Q6 a s needed 07/14/2017 08/04/2017 Inactive gabapentin 100 mg ca psule RxNorm: 948452 1 Capsule(s) PO QAM 06/23/2017 12/19/2017 Inactive hydrocodone 7.5 mg-a cetaminophen 325 mg tablet RxNorm: 662066 1-2 Tablet(s) PO Q6 a s needed 05/20/2017 06/10/2017 Inactive escitalopram 10 mg t ablet RxNorm: 011219 1 Tablet(s) PO QPM 05/13/2017 05/07/2018 Inactive Lipitor 20 mg tablet RxNorm: 310018 1 Tablet(s) PO TIW 05/13/2017 05/05/2018 Inactive escitalopram 10 mg t ablet RxNorm: 730524 1 Tablet(s) PO QPM 04/16/2017 05/12/2017 Inactive lisinopril 10 mg-hyd rochlorothiazide 12.5 mg tablet RxNorm: 445539 TAKE ONE TABLET BY MOUTH ONCE DAILY 04/15/2017 07/13/2017 Inactive escitalopram 10 mg t ablet RxNorm: 505760 1 Tablet(s) PO QPM 04/09/2017 04/15/2017 Inactive hydrocodone 7.5 mg-a cetaminophen 325 mg tablet RxNorm: 035842 1-2 Tablet(s) PO Q6 a s needed 03/17/2017 04/07/2017 Inactive hydrocodone 7.5 mg-a cetaminophen 325 mg tablet RxNorm: 747492 1-2 Tablet(s) PO Q6 a s needed 12/27/2016 01/17/2017 Inactive gabapentin 100 mg ca psule RxNorm: 670782 1 Capsule(s) PO QAM 12/16/2016 06/13/2017 Inactive prednisone 20 mg tablet RxNorm: 394458 2 Tablet(s) PO daily 12/06/2016 12/05/2016 Inactive prednisone 20 mg tablet RxNorm: 326400 2 Tablet(s) PO daily 12/06/2016 12/15/2016 Inactive Kenalog 40 mg/mL christoph pension for injection RxNorm: 8730642 1 Milliliter(s) Inj 12/05/2016 12/05/2016 In active diclofenac sodium 75 mg tablet,delayed release RxNorm: 888056 1 Tablet(s) PO BID 10/30/2016 10/24/2017 In active hydrocodone 7.5 mg-a cetaminophen 325 mg tablet RxNorm: 541081 1-2 Tablet(s) PO Q6 a s needed 10/23/2016 11/13/2016 Inactive hydrocodone 7.5 mg-a cetaminophen 325 mg tablet RxNorm: 569698 1-2 Tablet(s) PO Q6 a s needed 08/16/2016 09/06/2016 Inactive lisinopril 10 mg-hyd rochlorothiazide 12.5 mg tablet RxNorm: 746106 TAKE ONE TABLET BY MOUTH ONCE DAILY 06/07/2016 04/14/2017 Inactive Lipitor 40 mg tablet RxNorm: 755511 1 Tablet(s) PO TIW 05/31/2016 05/01/2017 Inactive Lipitor 20 mg tablet RxNorm: 389541 1 Tablet(s) PO TIW 05/29/2016 05/30/2016 Inactive hydrocodone 7.5 mg-a cetaminophen 325 mg tablet RxNorm: 068166 1-2 Tablet(s) PO Q6 a s needed 05/23/2016 06/13/2016 Inactive escitalopram 10 mg t ablet RxNorm: 121529 1 Tablet(s) PO QPM st art at 1/2 pill nightly x 1wk then a full pill thereafter 04/17/2016 04/08/2017 Inactive hydrocodone 7.5 mg-a cetaminophen 325 mg tablet RxNorm: 894224 1-2 Tablet(s) PO Q6 a s needed 02/28/2016 03/20/2016 Inactive hydrocodone 7.5 mg-a cetaminophen 325 mg tablet RxNorm: 238915 1-2 Tablet(s) PO Q6 a s needed 12/04/2015 12/25/2015 Inactive diclofenac sodium 75 mg tablet,delayed release RxNorm: 133602 1 Tablet(s) PO BID 10/23/2015 10/16/2016 In active hydrocodone 7.5 mg-a cetaminophen 325 mg tablet RxNorm: 034490 1-2 Tablet(s) PO Q6 a s needed 09/12/2015 12/03/2015 Inactive promethazine 25 mg t ablet RxNorm: 468051 1 Tablet(s) PO Q6 as needed 08/30/2015 No Stop Date Active lisinopril 10 mg-hyd rochlorothiazide 12.5 mg tablet RxNorm: 047439 1 Tablet(s) PO daily 05/09/2015 05/02/2016 Inactive hydrocodone 7.5 mg-a cetaminophen 325 mg tablet RxNorm: 381858 1-2 Tablet(s) PO Q6 a s needed 04/17/2015 09/11/2015 Inactive lisinopril 10 mg-hyd rochlorothiazide 12.5 mg tablet RxNorm: 641240 1 Tablet(s) PO daily 01/31/2015 05/08/2015 Inactive hydrocodone 7.5 mg-a cetaminophen 325 mg tablet RxNorm: 778601 1-2 Tablet(s) PO Q6 a s needed 01/18/2015 04/16/2015 Inactive diclofenac sodium 75 mg tablet,delayed release RxNorm: 906867 1 Tablet(s) PO BID 01/18/2015 10/14/2015 In active Voltaren 1 % topical gel RxNorm: 756878 4 Gram(s) TOP QID chelsie ly to sacroiliac joint 11/03/2014 05/15/2015 In active lisinopril 10 mg-hyd rochlorothiazide 12.5 mg tablet RxNorm: 918277 1 Tablet(s) PO daily 11/03/2014 12/02/2014 Inactive B-12 Plus sublingual RxNorm: 07269 sublingual No Start Date Active amoxicillin 500 mg c apsule RxNorm: 667848 4 Capsule(s) PO as do ctor directed 1 hours before appt No Start Date Active gabapentin 300 mg ca psule RxNorm: 771516 1 Capsule(s) PO QHS No Start Date Active promethazine 25 mg t ablet RxNorm: 055539 1 Tablet(s) PO Q6 as needed No Start Date 08/29/2015 Inactive diclofenac sodium 75 mg tablet,delayed release RxNorm: 418870 1 Tablet(s) PO BID No Start Date 01/17/2015 Inactive hydrocodone 7.5 mg-a cetaminophen 325 mg tablet RxNorm: 775570 1-2 Tablet(s) PO Q6 a s needed No Start Date 01/17/2015 Inactive Crestor 5 mg tablet RxNorm: 043584 1 Tablet(s) PO 3 x week No Start Date 05/28/2016 Inactive Medication Administered Medication Codes Instruc tions Start Date Status Kenalog 40 mg/mL suspension for injection RxNorm: 4521029 1Milliliter 12/05/2016 N o longer Active Immunizations No Immunization data Assessments Condition Codes Effectiv e Dates Acute bronchitis due to other specified organisms ICD-10: J20.8 ICD-9: 466.0 02/18/2018 Cough ICD-10: R05 ICD-9: 786.2 02/18/2018 Spinal stenosis, lumbosacral region ICD-10: M48.07 ICD-9: 724.02 01/08/2018 Low back pain ICD-10: M54.5 ICD-9: 724.2 01/08/2018 Mixed hyperlipidemia ICD-10: E78.2 ICD-9: 272.4 01/08/2018 Essential (primary) hypertension ICD -10: I10 ICD-9: 401.1 01/08/2018 Pain in right hip ICD-10: M25.551 ICD-9: 719.45 03/25/2017 Pain in left hip ICD-10: M25.552 ICD-9: [...] Item Item Code Result Date Tsh Ord6 TSH (3rd IS) 2.04 uIU/mL 01/14/2018 Cbc With Differential Ord2 WBC 10.84 [...] 31.5 pg 01/14/2018 Cbc With Differential Ord2 [place]% 8.5 % 01/14/2018 Cbc With Differential Ord2 [...] 3.44 K/ul 01/14/2018 Cbc With Differential Ord2 [place] ABS# 0.9 K/ul 01/14/2018 Cbc With Differential Ord2 Eos ABS# 0.3 K/ul 01/14/2018 Cbc With Differential Ord2 Baso ABS# 0.0 K/ul 01/14/2018 Lipid Ord30 CHOL 193 mg/dL 01/14/2018 Lipid Ord30 HDL 40.0 mg/dl 01/14/2018 Lipid Ord30 TRIG 185 mg/dL 01/14/2018 Lipid Ord30 LDL 116 mg/dL 01/14/2018 Lipid Ord30 C/HDL 4.8 Ratio 01/14/2018 Comp Metabolic Toj682 NA 140 mEq/L 01/14/2018 Comp Metabolic Syx287 K 3.8 mEq/L 01/14/2018 Comp Metabolic Txc285 CL 101 mEq/L 01/14/2018 Comp Metabolic Azs256 CO2 30.0 mEq/L 01/14/2018 Comp Metabolic Jsz088 AN ION GAP 13 01/14/2018 Comp Metabolic Ink961 GL UCOSE 89 mg/dL 01/14/2018 Comp Metabolic Mls862 Cr eat 1.0 mg/dL 01/14/2018 Comp Metabolic Oit621 eG FR 63 ml/min/1.73m2 01/14 Comp Metabolic Liu087 BUN 16 mg/dL 01/14/2018 Comp Metabolic Ptg855 B/ C Ratio 16.8 Ratio 01/14/2018 Comp Metabolic Mye506 CA LCIUM 9.2 mg/dL 01/14/2018 Comp Metabolic Dex200 AL K PHOS 88 U/L 01/14/2018 Comp Metabolic Ahr158 T(SGOT) 13 U/L 01/14/2018 Comp Metabolic Vxa018 AL T(SGPT) 9 U/L 01/14/2018 Comp Metabolic Wkq391 BI LI T 0.5 mg/dL 01/14/2018 Comp Metabolic Prf987 AL BUMIN 4.0 g/dL 01/14/2018 Comp Metabolic Gok624 TP RO 6.5 g/dL 01/14/2018 Comp Metabolic Uqz314 GL OB 2.5 g/dL 01/14/2018 Comp Metabolic Ggu651 A/ G Ratio 1.6 Ratio 01/14/2018 Comp Metabolic Lkn898 Os mo 280 mOsmo 01/14/2018 Comp Metabolic Afl448 NA 140 mEq/L 09/10/2017 Comp Metabolic Vsj033 K 4.2 mEq/L 09/10/2017 Comp Metabolic Shr910 CL 107 mEq/L 09/10/2017 Comp Metabolic Ycs334 CO2 25.0 mEq/L 09/10/2017 Comp Metabolic Gvy000 AN ION GAP 12 09/10/2017 Comp Metabolic Qam409 GL UCOSE 84 mg/dL 09/10/2017 Comp Metabolic Yvm075 Cr eat 0.7 mg/dL 09/10/2017 Comp Metabolic Rcz652 eG FR 85 ml/min/1.73m2 09/10 Comp Metabolic Rsh322 BUN 11 mg/dL 09/10/2017 Comp Metabolic Gfb126 B/ C Ratio 15.1 Ratio 09/10/2017 Comp Metabolic Jrl820 CA LCIUM 9.1 mg/dL 09/10/2017 Comp Metabolic Hba185 AL K PHOS 61 U/L 09/10/2017 Comp Metabolic Sia532 T(SGOT) 38 U/L 09/10/2017 Comp Metabolic Zpk101 AL T(SGPT) 24 U/L 09/10/2017 Comp Metabolic Fmf943 BI LI T 0.5 mg/dL 09/10/2017 Comp Metabolic Pvw079 AL BUMIN 4.0 g/dL 09/10/2017 Comp Metabolic Dzh093 TP RO 6.6 g/dL 09/10/2017 Comp Metabolic Met137 GL OB 2.6 g/dL 09/10/2017 Comp Metabolic Rkc117 A/ G Ratio 1.6 Ratio 09/10/2017 Comp Metabolic Nbd566 Os mo 278 mOsmo 09/10/2017 Cbc With Differential Ord2 WBC 5.41 K/ul 09/10/2017 Cbc With Differential Ord2 RBC 4.78 M/ul 09/10/2017 Cbc With Differential Ord2 HGB 14.8 g/dl 09/10/2017 Cbc With Differential Ord2 HCT 44.7 % 09/10/2017 Cbc With Differential Ord2 Neut% 54.4 % 09/10/2017 Cbc With Differential Ord2 Lymph% 33.6 % 09/10/2017 Cbc With Differential Ord2 MCV 93.5 fl 09/10/2017 Cbc With Differential Ord2 [place]% 9.2 % 09/10/2017 Cbc With Differential Ord2 MCH 31.0 pg 09/10/2017 Cbc With Differential Ord2 Eos% 2.4 % 09/10/2017 Cbc With Differential Ord2 MCHC 33.1 pg 09/10/2017 Cbc With Differential Ord2 PLT 310 K/ul 09/10/2017 Cbc With Differential Ord2 Baso% 0.4 % 09/10/2017 Cbc With Differential Ord2 RDW 13.5 % 09/10/2017 Cbc With Differential Ord2 Neut ABS# 2.94 K/ul 09/10/2017 Cbc With Differential Ord2 Lymph ABS# 1.82 K/ul 09/10/2017 Cbc With Differential Ord2 [place] ABS# 0.5 K/ul 09/10/2017 Cbc With Differential Ord2 Eos ABS# 0.1 K/ul 09/10/2017 Cbc With Differential Ord2 Baso ABS# 0.0 K/ul 09/10/2017 Tsh Ord6 TSH (3rd IS) 1.22 uIU/mL 09/10/2017 Lipid Ord30 CHOL 148 mg/dL 09/10/2017 Lipid Ord30 HDL 41.0 mg/dl 09/10/2017 Lipid Ord30 TRIG 66 mg/dL 09/10/2017 Lipid Ord30 LDL 94 mg/dL 09/10/2017 Lipid Ord30 C/HDL 3.6 Ratio 09/10/2017 Cbc With Differential Ord2 WBC 9.34 K/ul [...] 32.2 pg 09/25/2016 Cbc With Differential Ord2 [place]% 7.7 % 09/25/2016 Cbc With Differential Ord2 [...] 2.84 K/ul 09/25/2016 Cbc With Differential Ord2 [place] ABS# 0.7 K/ul 09/25/2016 Cbc With Differential Ord2 Eos ABS# 0.3 K/ul 09/25/2016 Cbc With Differential Ord2 Baso ABS# 0.0 K/ul 09/25/2016 Lipid Ord30 CHOL 185 mg/dL 09/25/2016 Lipid Ord30 HDL 54.0 mg/dl 09/25/2016 Lipid Ord30 TRIG 94 mg/dL 09/25/2016 Lipid Ord30 LDL 112 mg/dL 09/25/2016 Lipid Ord30 C/HDL 3.4 Ratio 09/25/2016 Comp Metabolic Mzz782 NA 139 mEq/L 09/25/2016 Comp Metabolic Vzr072 K 4.5 mEq/L 09/25/2016 Comp Metabolic Voi927 CL 102 mEq/L 09/25/2016 Comp Metabolic Bwe936 CO2 29.0 mEq/L 09/25/2016 Comp Metabolic Xbr682 AN ION GAP 13 09/25/2016 Comp Metabolic Glk091 GL UCOSE 84 mg/dL 09/25/2016 Comp Metabolic Wmi261 Cr eat 0.9 mg/dL 09/25/2016 Comp Metabolic Kiv082 eG FR 70 ml/min/1.73m2 09/25 Comp Metabolic Ekw174 BUN 21 mg/dL 09/25/2016 Comp Metabolic Oiy976 B/ C Ratio 24.1 Ratio 09/25/2016 Comp Metabolic Wlm017 CA LCIUM 9.2 mg/dL 09/25/2016 Comp Metabolic Kwz033 AL K PHOS 89 U/L 09/25/2016 Comp Metabolic Ujs257 T(SGOT) 19 U/L 09/25/2016 Comp Metabolic Xnm496 AL T(SGPT) 19 U/L 09/25/2016 Comp Metabolic Bqa904 BI LI T 0.5 mg/dL 09/25/2016 Comp Metabolic Wuq754 AL BUMIN 4.1 g/dL 09/25/2016 Comp Metabolic Fbd674 TP RO 6.5 g/dL 09/25/2016 Comp Metabolic Cfg127 GL OB 2.4 g/dL 09/25/2016 Comp Metabolic Baz966 A/ G Ratio 1.7 Ratio 09/25/2016 Comp Metabolic Hwo302 Os mo 280 mOsmo 09/25/2016 Tsh Ord6 hTSH II 1.57 uIU/mL 09/25/2016 Tsh Ord6 hTSH II 1.41 uIU/mL 04/19/2016 Comp Metabolic Ehs755 NA 135 mEq/L 04/19/2016 Comp Metabolic Gzn435 K 4.2 mEq/L 04/19/2016 Comp Metabolic Piq918 CL 97 mEq/L 04/19/2016 Comp Metabolic Lcw764 CO2 28.0 mEq/L 04/19/2016 Comp Metabolic Wmy672 AN ION GAP 14 04/19/2016 Comp Metabolic Law838 GL UCOSE 89 mg/dL 04/19/2016 Comp Metabolic Hwb995 Cr eat 0.8 mg/dL 04/19/2016 Comp Metabolic Cfv486 eG FR 77 ml/min/1.73m2 04/19 Comp Metabolic Zml438 BUN 17 mg/dL 04/19/2016 Comp Metabolic Fqu757 B/ C Ratio 21.3 Ratio 04/19/2016 Comp Metabolic Yop621 CA LCIUM 9.8 mg/dL 04/19/2016 Comp Metabolic Xfq695 AL K PHOS 89 U/L 04/19/2016 Comp Metabolic Pqa922 T(SGOT) 16 U/L 04/19/2016 Comp Metabolic Llj569 AL T(SGPT) 13 U/L 04/19/2016 Comp Metabolic Urd403 BI LI T 0.4 mg/dL 04/19/2016 Comp Metabolic Zxj484 AL BUMIN 4.5 g/dL 04/19/2016 Comp Metabolic Zio729 TP RO 7.2 g/dL 04/19/2016 Comp Metabolic Ttd017 GL OB 2.7 g/dL 04/19/2016 Comp Metabolic Fge485 A/ G Ratio 1.7 Ratio 04/19/2016 Comp Metabolic Hfs756 Os mo 271 mOsmo 04/19/2016 Lipid Ord30 CHOL 283 mg/dL 04/19/2016 Lipid Ord30 HDL 56.0 mg/dl 04/19/2016 Lipid Ord30 TRIG 115 mg/dL 04/19/2016 Lipid Ord30 LDL 204 mg/dL 04/19/2016 Lipid Ord30 C/HDL 5.1 Ratio 04/19/2016 Cbc With Differential Ord2 WBC 11.02 K/ul 04/19/2016 Cbc With Differential Ord2 RBC 4.86 M/ul 04/19/2016 Cbc With Differential Ord2 HGB 15.0 g/dl 04/19/2016 Cbc With Differential Ord2 HCT 44.3 % 04/19/2016 Cbc With Differential Ord2 Neut% 60.2 % 04/19/2016 Cbc With Differential Ord2 MCV 91.2 fl 04/19/2016 Cbc With Differential Ord2 Lymph% 31.1 % 04/19/2016 Cbc With Differential Ord2 [place]% 6.4 % 04/19/2016 Cbc With Differential Ord2 [...] 3.43 K/ul 04/19/2016 Cbc With Differential Ord2 [place] ABS# 0.7 K/ul 04/19/2016 Cbc With Differential Ord2 Eos ABS# 0.2 K/ul 04/19/2016 Cbc With Differential Ord2 Baso ABS# 0.0 K/ul 04/19/2016 Comp Metabolic Pqe722 NA 137 mEq/L 07/11/2015 Comp Metabolic Rkt338 K 4.4 mEq/L 07/11/2015 Comp Metabolic Fnb181 CL 100 mEq/L 07/11/2015 Comp Metabolic Fjv162 CO2 25.0 mEq/L 07/11/2015 Comp Metabolic Jjm261 AN ION GAP 16 07/11/2015 Comp Metabolic Jyh776 GL UCOSE 75 mg/dL 07/11/2015 Comp Metabolic Jbp004 Cr eat 0.8 mg/dL 07/11/2015 Comp Metabolic Wyc335 eG FR 76 ml/min/1.73m2 07/10 Comp Metabolic Izz772 BUN 18 mg/dL 07/11/2015 Comp Metabolic Vqv072 B/ C Ratio 22.2 Ratio 07/11/2015 Comp Metabolic Rln833 CA LCIUM 9.5 mg/dL 07/11/2015 Comp Metabolic Hwu647 AL K PHOS 92 U/L 07/11/2015 Comp Metabolic Umi290 T(SGOT) 16 U/L 07/11/2015 Comp Metabolic Bkj800 AL T(SGPT) 18 U/L 07/11/2015 Comp Metabolic Ebg951 BI LI T 0.6 mg/dL 07/11/2015 Comp Metabolic Wog510 AL BUMIN 4.3 g/dL 07/11/2015 Comp Metabolic Sbq604 TP RO 6.7 g/dL 07/11/2015 Comp Metabolic Cjm258 GL OB 2.4 g/dL 07/11/2015 Comp Metabolic Esi856 A/ G Ratio 1.7 Ratio 07/11/2015 Comp Metabolic Fkw960 Os mo 274 mOsmo 07/11/2015 Cbc With [...] 37.0 % 07/11/2015 Cbc With Differential Ord2 [place]% 7.8 % 07/11/2015 Cbc With Differential Ord2 [...] 2.75 K/ul 07/11/2015 Cbc With Differential Ord2 [place] ABS# 0.6 K/ul 07/11/2015 Cbc With Differential [...] Lipid Ord30 C/HDL 3.6 Ratio 07/11/2015 B12 Exa190 B12 >1500.00 pg/ml 07/11/2015 Review of Systems [...] Procedure Codes Date DRAIN/INJECT JOINT/B URSA CPT-4: 53375 12/05/2016 TRIAMCINOLONE ACET I [place] NOS CPT-4: J3301 12/05/2016 DESTRUCT PREMALG LESION CPT-4: 97384 10/22/2016 PPPS, SUBSEQ VISIT CPT- 4: G0439 04/19/2016 Vital Signs Date Vital 02/18/2018 Blood Pressure 1: 100/52 Code: 8480-6 BMI: 31.9 Code: 34916-3 Heart Rate 1: 92 bpm Height: 5'3" SpO2: 90% Temperature: 36.6 (C ) / 97.9 (F) Weight: 180 lbs 01/08/2018 Blood Pressure 1: 140/80 Code: 8480-6 BMI: 32.6 Code: 42514-6 Heart Rate 1: 82 bpm Height: 5'3" SpO2: 92% Weight: 184 lbs 09/09/2017 Blood Pressure 1: 118/62 Code: 8480-6 BMI: 32.4 Code: 89300-6 Heart Rate 1: 80 bpm Height: 5'3" SpO2: 94% Weight: 183 lbs 03/25/2017 Blood Pressure 1: 122/68 Code: 8480-6 BMI: 31.2 Code: 93238-9 Heart Rate 1: 91 bpm Height: 5'3" SpO2: 95% Weight: 176 lbs 12/16/2016 Blood Pressure 1: 148/82 Code: 8480-6 Heart Rate 1: 77 bpm Height: 5'3" SpO2: 96% 12/05/2016 Blood Pressure 1: 138/72 Code: 8480-6 Heart Rate 1: 84 bpm Height: 5'3" SpO2: 92% Weight: 10/22/2016 Blood Pressure 1: 136/78 Code: 8480-6 BMI: 30.1 Code: 64423-4 Heart Rate 1: 70 bpm Height: 5'3" SpO2: 95% Weight: 170 lbs 09/25/2016 Blood Pressure 1: 122/72 Code: 8480-6 BMI: 29.8 Code: 45273-9 Heart Rate 1: 67 bpm Height: 5'3" SpO2: 97% Weight: 168 lbs 05/29/2016 Blood Pressure 1: 112/70 Code: 8480-6 BMI: 27.8 Code: 49645-8 Heart Rate 1: 102 bpm Height: 5'3" SpO2: 98% Weight: 157 lbs 04/19/2016 Blood Pressure 1: 128/58 Code: 8480-6 BMI: 28.5 Code: 19861-5 Heart Rate 1: 85 bpm Height: 5'3" SpO2: 98% Waist Measure (cm): 81 cm Weight: 161 lbs 04/17/2016 Blood Pressure 1: 128/82 Code: 8480-6 BMI: 28.5 Code: 46336-9 Heart Rate 1: 85 bpm Height: 5'3" SpO2: 98% Weight: 161 lbs 10/12/2015 Blood Pressure 1: 124/68 Code: 8480-6 BMI: 28.2 Code: 77088-3 Heart Rate 1: 72 bpm Height: 5'3" SpO2: 98% Weight: 159 lbs 07/11/2015 Blood Pressure 1: 128/88 Code: 8480-6 BMI: 28.5 Code: 76762-7 Heart Rate 1: 73 bpm Height: 5'3" SpO2: 93% Weight: 161 lbs 05/16/2015 Blood Pressure 1: 120/82 Code: 8480-6 BMI: 28.3 Code: 85775-0 Heart Rate 1: 82 bpm Height: 5'3" SpO2: 93% Weight: 160 lbs 11/03/2014 Blood Pressure 1: 132/74 Code: 8480-6 BMI: 27.6 Code: 85741-5 Heart Rate 1: 80 bpm Height: 5'3" [...] Encounters Encounter Performer Loca tion Codes Date ([id number]) [id number] EST. P ATIENT, LEVEL III Diagnosis: Acute bronchitis due to other specified organisms[ICD10: J20.8] Diagnosis: Cough[ICD10: R05] [facility] CPT-4: 10957 02/18/2018 ([id number]) 78922 EST. P ATIENT, LEVEL IV Diagnosis: Essential (primary) hypertension[ICD10: I10] Diagnosis: Low back pain[ICD10: M54.5] Diagnosis: Spinal stenosis, lumbosacral region[ICD10: M48.07] Diagnosis: Mixed hyperlipidemia[ICD10: E78.2] Tamara Jones MD, [facility] CPT- 4: 59089 01/08/2018 ([id number]) 19013 EST. P ATIENT, LEVEL IV Diagnosis: Essential (primary) hypertension[ICD10: I10] Diagnosis: Low back pain[ICD10: M54.5] Diagnosis: Spinal stenosis, lumbosacral region[ICD10: M48.07] [facility] CPT-4: 28509 09/09/2017 ([id number]) 86777 EST. P ATIENT, LEVEL IV Diagnosis: Essential (primary) hypertension[ICD10: I10] Diagnosis: Mixed hyperlipidemia[ICD10: E78.2] Diagnosis: Low back pain[ICD10: M54.5] Diagnosis: Pain in right hip[ICD10: M25.551] Diagnosis: Pain in left hip[ICD10: M25.552] Tamara Jones MD, [facility] CPT-4: 42640 03/25/2017 ([id number]) 41491 EST. P ATIENT, LEVEL III Diagnosis: Low back pain[ICD10: M54.5] Diagnosis: Sciatica, left side[ICD10: M54.32] Elina Jones MD, [facility] CPT-4: 98873 12/16/2016 [id number] EST. PATIENT, LEVEL III Diagnosis: Sacroiliitis, not elsewhere classified[ICD10: M46.1] Diagnosis: Sciatica, left side[ICD10: M54.32] Diagnosis: Pain in left hip[ICD10: M25.552] Evelyn Jones MD, [facility] CPT-4: 14792 12/05/2016 ([id number]) 31575 EST. P ATIENT, LEVEL IV Diagnosis: Encounter for screening mammogram for malignant neoplasm of breast[ICD10: Z12.31] Diagnosis: Essential (primary) hypertension[ICD10: I10] Diagnosis: Mixed hyperlipidemia[ICD10: E78.2] Diagnosis: Major depressive disorder, recurrent, mild[ICD10: F33.0] [facility] CPT-4: 56777 09/25/2016 ([id number]) 05581 EST. P ATIENT, LEVEL IV Diagnosis: Essential (primary) hypertension[ICD10: I10] Diagnosis: Mixed hyperlipidemia[ICD10: E78.2] Diagnosis: Major depressive disorder, recurrent, moderate[ICD10: F33.1] Tamara Jones MD, [facility] CPT-4: 11651 05/29/2016 ([id number]) 04082 EST. P ATIENT, LEVEL IV Diagnosis: Essential (primary) hypertension[ICD10: I10] Diagnosis: Mixed hyperlipidemia[ICD10: E78.2] Diagnosis: Pain in right hip[ICD10: M25.551] Diagnosis: Major depressive disorder, recurrent, mild[ICD10: F33.0] Tamara Jones MD, [facility] CPT-4: 75507 04/17/2016 ([id number]) 66143 EST. P ATIENT, LEVEL IV Diagnosis: Essential (primary) hypertension[ICD10: I10] Diagnosis: Low back pain[ICD10: M54.5] Diagnosis: Mixed hyperlipidemia[ICD10: E78.2] Tamara Jones MD, [facility] CPT- 4: 98772 10/12/2015 ([id number]) 53708 EST. P ATIENT, LEVEL III Diagnosis: Essential (primary) hypertension[ICD10: I10] Diagnosis: Mixed hyperlipidemia[ICD10: E78.2] Diagnosis: Vitamin B12 deficiency anemia, unspecified[ICD10: D51.9] Elina Jones MD, [facility] CPT-4: 46534 07/11/2015 ([id number]) [id number] EST. P ATIENT, LEVEL IV Diagnosis: Essential (primary) hypertension[ICD10: I10] Diagnosis: Low back pain[ICD10: M54.5] Diagnosis: Sciatica, right side[ICD10: M54.31] [facility] CPT-4: 72767 05/16/2015 ([id number]) [facility] LEVEL 4 Diagnosis: ESSENTIAL HYPERTENSION[ICD9: 401.9] Diagnosis: HYPERLIPIDEMIA[ICD9: 272.4] Diagnosis: OSTEOARTH NOS-UNSPEC[ICD9: 715.90] Diagnosis: Sacroiliitis[ICD9: 720.2] Tamara Jones MD, [facility] CPT-4: 91362 11/03/2014 Plan of Care Planned Activity Notes C odes Status Date Appointment: Miguel Elina WPtel: [phone] [phone] (15 min) Moderate 02/27/2018 Appointment: Miguel Elina WPtel: [phone] [phone] [place] (15 min) Moderate 02/23/2018 Visit Plan: Bronchitis - acute case of bronchitis identified. Pt has been given antibiotics, breathing treatments as appropriate, and pt has been instructed to call if symptoms are not improved, or if symptoms acutely worsen. 02/18/2018 Appointment: Tamara Jones WPtel: [phone] [phone] (15 min) Moderate 02/18/2018 Patient Education: Patient Medication Summary Completed 02/18/2018 Appointment: Tamara Jones WPtel: [phone] (15 min) Moderate 02/16/2018 Visit Plan: [...] not improving. 01/08/2018 Appointment: Tamara Jones WPtel: [phone] [phone] (15 min) Moderate 01/08/2018 Patient Education: Patient Medication Summary Completed 01/08/2018 Visit Plan: Spinal stenosis - pt quinn d MRI in 2016 - was seen by Dr. Morales, had physical therapy without improvement. I have recommended a repeat referral to Dr. Morales for spine eval - hx of spinal [...] lab 09/09/2017 Appointment: Tamara Jones WPtel: [facility]1 [phone] (15 min) Moderate 09/09/2017 Patient Education: Patient Medication Summary Completed 09/09/2017 Care Plan: Referral Order SNOMED-CT : [id number] Pending 09/09/2017 Appointment: Elina Rivera WPtel: [facility]2 [phone] [facility] - Annual Wellness Visit 04/25/2017 Visit Plan: [...] treatment/anti-inflammatory prn. 03/25/2017 Appointment: [facility] Jones [facility] (15 min) Moderate 03/25/2017 Patient Education: Patient Medication Summary Completed 03/25/2017 Patient Education: Obesity Completed 03/25/2017 Visit Plan: Low back pain-plan to i ncrease gabapentin-use hydrocodone for break through pain-discussed PT-patient to make appt with Dr Morales to discuss further treatment options 12/16/2016 Appointment: Elina Rivera WPtel: [phone] (15 min) Moderate 12/16/2016 Patient Education: [...] they worsen. 12/05/2016 Appointment: Evelyn Orosco WPtel: [phone] (30 min) Complex 12/05/2016 Patient Education: Patient Medication Summary Completed 12/05/2016 Visit Plan: Wound Instructions - Pt was instructed to keep the wound clean, wash with antibacterial soap, use triple antibiotic ointment, call if redness, pustular drainage, or any other acute concerns. 10/22/2016 Appointment: Elina Rivera WPtel: [facility]2 [phone] (15 min) Moderate 10/22/2016 Patient Education: [...] SSRI 09/25/2016 App[facility]ment: [phone] (15 min) Moderate 09/25/2016 Patient Education: Patient Medication Summary Completed 09/25/2016 Patient Education: Obesity Completed 09/25/2016 Care Plan: [facility] : [id number] Pending 09/25/2016 Visit Plan: Hypertension - well [...] as prescribed. 05/29/2016 Appointment: [phone] (15 min) Moderate 05/29/2016 Patient Education: Patient [...] surrogate. 04/19/2016 Appointment: Elina Rivera WPtel: [phone] [phone] [facility] - Annual Wellness Visit 04/19/2016 Patient Education: [...] SSRI 04/17/2016 Appointment: [phone] (15 min) Moderate 04/17/2016 Patient Education: Patient [...] medications. 10/12/2015 Appointment: Tamara Jones WPtel: [phone] [phone] (30 min) Complex 10/12/2015 Patient Education: [...] they worsen. 11/03/2014 Appointment: [facility]el[phone] [place] New Patient 11/03/2014 Patient Education: [...] in 2016 - was seen by Dr. Morales, had physical therapy without improvement. I have recommended a repeat referral to Dr. Morales for spine eval - hx of spinal stenosis. Hypertension - well controlled - continue with current medications, continue with no added salt diet. Pt has been encouraged to exercise daily. The pt has been advised to call the office if there are any acute concerns about change in blood pressure readings at home. [place] [facility] . Wound Instructions - Pt was [...] IF NEEDED CONSIDER PT F/U WITH DR MORALES . Low back pain-plan to increase gabapen tin-use hydrocodone for break through pain-discussed PT-patient to make appt with Dr Morales to discuss further treatment options . Hypertension [...]
--- OUTSIDE RECORDS SUMMARY | 2019-09-24 08:53 | XMS REPORT | CCD ---
Author Author Marjorie Jones Organization Tamara Jones MD, [facility] Address [address] [place] [address] Phone Care Team Providers Care Manager Of Selection And Assessment Name Role Phone PP Unavailable CCM Unavailable Summary Purpose Interface Exchange Insurance Providers Payer name Policy type / Coverage type Covered constitution party ID Effective Begin Date Effective End Date [place] [employer] Medicare Part B [id number] Unknown [facility] icare Part B [id number] Un known Family history Mother Diagnosis Age At Onset Diabetes mellitus Type 2 Unknown Father Diagnosis Age At Onset Depression Unknown Hyperlipidemia Unknown Hypertension Unknown Stroke Unknown Coronary Artery Disease Unknown Social History Social History Element Codes Description Effective Dates Marital status Unknown M arried Walter 11/03/2014 Number of children Unknown 0 11/03/2014 Employment Unknown Curre ntly unemployed 11/03/[address]: 4005066 Quit over 10 years ago 199911/03/2014 Alcohol [...] Date Stop Date Sta tus Fill Instructions Lipitor 20 mg tablet RxNorm: 455709 TAKE ONE TABLET BY MOUTH THREE TIMES WEE KLY 05/06/2018 No Stop Date Active hydrocodone 7.5 mg-a cetaminophen 325 mg tablet RxNorm: 156146 1 Tablet(s) PO TID 04/30/2018 05/29/2018 Ac tive hydrocodone 7.5 mg-a cetaminophen 325 mg tablet RxNorm: 871738 1 Tablet(s) PO TID 03/26/2018 04/24/2018 In active prednisone 20 mg tablet RxNorm: 544562 2 Tablet(s) PO daily 02/18/2018 02/22/2018 Inactive Ventolin HFA 90 mcg/ actuation aerosol inhaler RxNorm: 209180 2 INH TID x 1 week th en twice daily x 5 days then as needed. 02/18/2018 04/18/2018 Inactive plea se give pt a spacer cefdinir 300 mg capsule RxNorm: 391047 1 Capsule(s) PO BID 02/18/2018 02/24/2018 Inactive memantine 10 mg tablet RxNorm: 915870 1/2 tab nightly x1wk then 1/2tab bid x1w k then 1/2tab am and 1tab hs x1wk then 1 Tablet(s) PO BID 01/08/2018 08/05/2018 Active hydrocodone 7.5 mg-a cetaminophen 325 mg tablet RxNorm: 676524 1 Tablet(s) PO TID 01/08/2018 02/06/2018 In active gabapentin 100 mg ca psule RxNorm: 487443 TAKE 1 CAPSULE BY SCOTT TH ONCE DAILY IN THE MORNING 12/24/2017 No Stop Date Active hydrocodone 7.5 mg-a cetaminophen 325 mg tablet RxNorm: 530134 1-2 Tablet(s) PO Q6 a s needed 12/01/2017 12/22/2017 Inactive diclofenac sodium 75 mg tablet,delayed release RxNorm: 839683 TAKE ONE TABLET BY [facility] TWICE DAILY 11/10/2017 No Stop Date Active hydrocodone 7.5 mg-a cetaminophen 325 mg tablet RxNorm: 341218 1-2 Tablet(s) PO Q6 a s needed 10/17/2017 11/07/2017 Inactive hydrocodone 7.5 mg-a cetaminophen 325 mg tablet RxNorm: 002678 1-2 Tablet(s) PO Q6 a s needed 09/01/2017 09/22/2017 Inactive hydrocodone 7.5 mg-a cetaminophen 325 mg tablet RxNorm: 571042 1-2 Tablet(s) PO Q6 a s needed 08/25/2017 08/31/2017 Inactive lisinopril 10 mg-hyd rochlorothiazide 12.5 mg tablet RxNorm: 786224 Tablet(s) TAKE ONE TABLET BY MOUTH ONCE DAILY 07/14/2017 07/08/2018 Active hydrocodone 7.5 mg-a cetaminophen 325 mg tablet RxNorm: 335398 1-2 Tablet(s) PO Q6 a s needed 07/14/2017 08/04/2017 Inactive gabapentin 100 mg ca psule RxNorm: 979606 1 Capsule(s) PO QAM 06/23/2017 12/19/2017 Inactive hydrocodone 7.5 mg-a cetaminophen 325 mg tablet RxNorm: 933039 1-2 Tablet(s) PO Q6 a s needed 05/20/2017 06/10/2017 Inactive escitalopram 10 mg t ablet RxNorm: 491115 1 Tablet(s) PO QPM 05/13/2017 05/07/2018 Active Lipitor 20 mg tablet RxNorm: 505774 1 Tablet(s) PO TIW 05/13/2017 05/05/2018 Inactive escitalopram 10 mg t ablet RxNorm: 684388 1 Tablet(s) PO QPM 04/16/2017 05/12/2017 Inactive lisinopril 10 mg-hyd rochlorothiazide 12.5 mg tablet RxNorm: 295525 TAKE ONE TABLET BY MOUTH ONCE DAILY 04/15/2017 07/13/2017 Inactive escitalopram 10 mg t ablet RxNorm: 260026 1 Tablet(s) PO QPM 04/09/2017 04/15/2017 Inactive hydrocodone 7.5 mg-a cetaminophen 325 mg tablet RxNorm: 594725 1-2 Tablet(s) PO Q6 a s needed 03/17/2017 04/07/2017 Inactive hydrocodone 7.5 mg-a cetaminophen 325 mg tablet RxNorm: 156557 1-2 Tablet(s) PO Q6 a s needed 12/27/2016 01/17/2017 Inactive gabapentin 100 mg ca psule RxNorm: 203677 1 Capsule(s) PO QAM 12/16/2016 06/13/2017 Inactive prednisone 20 mg tablet RxNorm: 917627 2 Tablet(s) PO daily 12/06/2016 12/05/2016 Inactive prednisone 20 mg tablet RxNorm: 234897 2 Tablet(s) PO daily 12/06/2016 12/15/2016 Inactive Kenalog 40 mg/mL christoph pension for injection RxNorm: 6776133 1 Milliliter(s) Inj 12/05/2016 12/05/2016 In active diclofenac sodium 75 mg tablet,delayed release RxNorm: 463425 1 Tablet(s) PO BID 10/30/2016 10/24/2017 In active hydrocodone 7.5 mg-a cetaminophen 325 mg tablet RxNorm: 965943 1-2 Tablet(s) PO Q6 a s needed 10/23/2016 11/13/2016 Inactive hydrocodone 7.5 mg-a cetaminophen 325 mg tablet RxNorm: 176799 1-2 Tablet(s) PO Q6 a s needed 08/16/2016 09/06/2016 Inactive lisinopril 10 mg-hyd rochlorothiazide 12.5 mg tablet RxNorm: 700641 TAKE ONE TABLET BY MOUTH ONCE DAILY 06/07/2016 04/14/2017 Inactive Lipitor 40 mg tablet RxNorm: 373895 1 Tablet(s) PO TIW 05/31/2016 05/01/2017 Inactive Lipitor 20 mg tablet RxNorm: 248046 1 Tablet(s) PO TIW 05/29/2016 05/30/2016 Inactive hydrocodone 7.5 mg-a cetaminophen 325 mg tablet RxNorm: 054491 1-2 Tablet(s) PO Q6 a s needed 05/23/2016 06/13/2016 Inactive escitalopram 10 mg t ablet RxNorm: 538585 1 Tablet(s) PO QPM st art at 1/2 pill nightly x 1wk then a full pill thereafter 04/17/2016 04/08/2017 Inactive hydrocodone 7.5 mg-a cetaminophen 325 mg tablet RxNorm: 711041 1-2 Tablet(s) PO Q6 a s needed 02/28/2016 03/20/2016 Inactive hydrocodone 7.5 mg-a cetaminophen 325 mg tablet RxNorm: 591280 1-2 Tablet(s) PO Q6 a s needed 12/04/2015 12/25/2015 Inactive diclofenac sodium 75 mg tablet,delayed release RxNorm: 123897 1 Tablet(s) PO BID 10/23/2015 10/16/2016 In active hydrocodone 7.5 mg-a cetaminophen 325 mg tablet RxNorm: 136822 1-2 Tablet(s) PO Q6 a s needed 09/12/2015 12/03/2015 Inactive promethazine 25 mg t ablet RxNorm: 787748 1 Tablet(s) PO Q6 as needed 08/30/2015 No Stop Date Active lisinopril 10 mg-hyd rochlorothiazide 12.5 mg tablet RxNorm: 016414 1 Tablet(s) PO daily 05/09/2015 05/02/2016 Inactive hydrocodone 7.5 mg-a cetaminophen 325 mg tablet RxNorm: 595282 1-2 Tablet(s) PO Q6 a s needed 04/17/2015 09/11/2015 Inactive lisinopril 10 mg-hyd rochlorothiazide 12.5 mg tablet RxNorm: 966957 1 Tablet(s) PO daily 01/31/2015 05/08/2015 Inactive hydrocodone 7.5 mg-a cetaminophen 325 mg tablet RxNorm: 297480 1-2 Tablet(s) PO Q6 a s needed 01/18/2015 04/16/2015 Inactive diclofenac sodium 75 mg tablet,delayed release RxNorm: 230238 1 Tablet(s) PO BID 01/18/2015 10/14/2015 In active Voltaren 1 % topical gel RxNorm: 334949 4 Gram(s) TOP QID chelsie ly to sacroiliac joint 11/03/2014 05/15/2015 In active lisinopril 10 mg-hyd rochlorothiazide 12.5 mg tablet RxNorm: 430016 1 Tablet(s) PO daily 11/03/2014 12/02/2014 Inactive B-12 Plus sublingual RxNorm: 93036 sublingual No Start Date Active amoxicillin 500 mg c apsule RxNorm: 561357 4 Capsule(s) PO as do ctor directed 1 hours before appt No Start Date Active gabapentin 300 mg ca psule RxNorm: 229891 1 Capsule(s) PO QHS No Start Date Active promethazine 25 mg t ablet RxNorm: 653598 1 Tablet(s) PO Q6 as needed No Start Date 08/29/2015 Inactive diclofenac sodium 75 mg tablet,delayed release RxNorm: 653280 1 Tablet(s) PO BID No Start Date 01/17/2015 Inactive hydrocodone 7.5 mg-a cetaminophen 325 mg tablet RxNorm: 523411 1-2 Tablet(s) PO Q6 a s needed No Start Date 01/17/2015 Inactive Crestor 5 mg tablet RxNorm: 371573 1 Tablet(s) PO 3 x week No Start Date 05/28/2016 Inactive Medication Administered Medication Codes Instruc tions Start Date Status Kenalog 40 mg/mL suspension for injection RxNorm: 3095227 1Milliliter 12/05/2016 N o longer Active Immunizations [...] Item Item Code Result Date Comp Metabolic Elh275 NA 140 mEq/L 01/14/2018 Comp Metabolic Cyb005 K 3.8 mEq/L 01/14/2018 Comp Metabolic Wxu169 CL 101 mEq/L 01/14/2018 Comp Metabolic Mwt766 CO2 30.0 mEq/L 01/14/2018 Comp Metabolic Gha332 AN ION GAP 13 01/14/2018 Comp Metabolic Wey574 GL UCOSE 89 mg/dL 01/14/2018 Comp Metabolic Axz789 Cr eat 1.0 mg/dL 01/14/2018 Comp Metabolic Cwr251 eG FR 63 ml/min/1.73m2 01/14 Comp Metabolic Iio254 BUN 16 mg/dL 01/14/2018 Comp Metabolic Upw253 B/ C Ratio 16.8 Ratio 01/14/2018 Comp Metabolic Kbt274 CA LCIUM 9.2 mg/dL 01/14/2018 Comp Metabolic Jam091 AL K PHOS 88 U/L 01/14/2018 Comp Metabolic Pfv991 T(SGOT) 13 U/L 01/14/2018 Comp Metabolic Bum946 AL T(SGPT) 9 U/L 01/14/2018 Comp Metabolic Xcd439 BI LI T 0.5 mg/dL 01/14/2018 Comp Metabolic Hgc122 AL BUMIN 4.0 g/dL 01/14/2018 Comp Metabolic Lgv270 TP RO 6.5 g/dL 01/14/2018 Comp Metabolic Vjc846 GL OB 2.5 g/dL 01/14/2018 Comp Metabolic Pwz404 A/ G Ratio 1.6 Ratio 01/14/2018 Comp Metabolic Rbk719 Os mo 280 mOsmo 01/14/2018 Tsh Ord6 [...] 31.5 pg 01/14/2018 Cbc With Differential Ord2 [place]% 8.5 % 01/14/2018 Cbc With Differential Ord2 [...] 3.44 K/ul 01/14/2018 Cbc With Differential Ord2 [place] ABS# 0.9 K/ul 01/14/2018 Cbc With Differential [...] 31.0 pg 09/10/2017 Cbc With Differential Ord2 [place]% 9.2 % 09/10/2017 Cbc With Differential Ord2 [...] 1.82 K/ul 09/10/2017 Cbc With Differential Ord2 [place] ABS# 0.5 K/ul 09/10/2017 Cbc With Differential Ord2 Eos ABS# 0.1 K/ul 09/10/2017 Cbc With Differential Ord2 Baso ABS# 0.0 K/ul 09/10/2017 Tsh Ord6 TSH (3rd IS) 1.22 uIU/mL 09/10/2017 Comp Metabolic Inj831 NA 140 mEq/L 09/10/2017 Comp Metabolic Aoa610 K 4.2 mEq/L 09/10/2017 Comp Metabolic Vgo067 CL 107 mEq/L 09/10/2017 Comp Metabolic Doz979 CO2 25.0 mEq/L 09/10/2017 Comp Metabolic Zkt421 AN ION GAP 12 09/10/2017 Comp Metabolic Gpb900 GL UCOSE 84 mg/dL 09/10/2017 Comp Metabolic Nlp595 Cr eat 0.7 mg/dL 09/10/2017 Comp Metabolic Cgb363 eG FR 85 ml/min/1.73m2 09/10 Comp Metabolic Msw643 BUN 11 mg/dL 09/10/2017 Comp Metabolic Ptr853 B/ C Ratio 15.1 Ratio 09/10/2017 Comp Metabolic Gkz002 CA LCIUM 9.1 mg/dL 09/10/2017 Comp Metabolic Vci166 AL K PHOS 61 U/L 09/10/2017 Comp Metabolic Gru343 T(SGOT) 38 U/L 09/10/2017 Comp Metabolic The260 AL T(SGPT) 24 U/L 09/10/2017 Comp Metabolic Kby875 BI LI T 0.5 mg/dL 09/10/2017 Comp Metabolic Fnp026 AL BUMIN 4.0 g/dL 09/10/2017 Comp Metabolic Zam091 TP RO 6.6 g/dL 09/10/2017 Comp Metabolic Gef674 GL OB 2.6 g/dL 09/10/2017 Comp Metabolic Xhq100 A/ G Ratio 1.6 Ratio 09/10/2017 Comp Metabolic Tzo257 Os mo 278 mOsmo 09/10/2017 Lipid Ord30 CHOL 148 mg/dL 09/10/2017 Lipid Ord30 HDL 41.0 mg/dl 09/10/2017 Lipid Ord30 TRIG 66 mg/dL 09/10/2017 Lipid Ord30 LDL 94 mg/dL 09/10/2017 Lipid Ord30 C/HDL 3.6 Ratio 09/10/2017 Tsh Ord6 hTSH II 1.57 uIU/mL 09/25/2016 Comp Metabolic Evi018 NA 139 mEq/L 09/25/2016 Comp Metabolic Fru677 K 4.5 mEq/L 09/25/2016 Comp Metabolic Dzj740 CL 102 mEq/L 09/25/2016 Comp Metabolic Pkj169 CO2 29.0 mEq/L 09/25/2016 Comp Metabolic Epe060 AN ION GAP 13 09/25/2016 Comp Metabolic Crg315 GL UCOSE 84 mg/dL 09/25/2016 Comp Metabolic Yfp190 Cr eat 0.9 mg/dL 09/25/2016 Comp Metabolic Zpp029 eG FR 70 ml/min/1.73m2 09/25 Comp Metabolic Jss288 BUN 21 mg/dL 09/25/2016 Comp Metabolic Kzt069 B/ C Ratio 24.1 Ratio 09/25/2016 Comp Metabolic Glu748 CA LCIUM 9.2 mg/dL 09/25/2016 Comp Metabolic Ren397 AL K PHOS 89 U/L 09/25/2016 Comp Metabolic Dha359 T(SGOT) 19 U/L 09/25/2016 Comp Metabolic Iiv664 AL T(SGPT) 19 U/L 09/25/2016 Comp Metabolic Juh047 BI LI T 0.5 mg/dL 09/25/2016 Comp Metabolic Uqp660 AL BUMIN 4.1 g/dL 09/25/2016 Comp Metabolic Hii282 TP RO 6.5 g/dL 09/25/2016 Comp Metabolic Asj531 GL OB 2.4 g/dL 09/25/2016 Comp Metabolic Jnl995 A/ G Ratio 1.7 Ratio 09/25/2016 Comp Metabolic Jix501 Os mo 280 mOsmo 09/25/2016 Cbc With [...] 30.4 % 09/25/2016 Cbc With Differential Ord2 [place]% 7.7 % 09/25/2016 Cbc With Differential Ord2 [...] 2.84 K/ul 09/25/2016 Cbc With Differential Ord2 [place] ABS# 0.7 K/ul 09/25/2016 Cbc With Differential [...] Ord30 C/HDL 5.1 Ratio 04/19/2016 Comp Metabolic Xny735 NA 135 mEq/L 04/19/2016 Comp Metabolic Ace973 K 4.2 mEq/L 04/19/2016 Comp Metabolic Ton988 CL 97 mEq/L 04/19/2016 Comp Metabolic Hwa949 CO2 28.0 mEq/L 04/19/2016 Comp Metabolic Wws924 AN ION GAP 14 04/19/2016 Comp Metabolic Nbj436 GL UCOSE 89 mg/dL 04/19/2016 Comp Metabolic Jxy486 Cr eat 0.8 mg/dL 04/19/2016 Comp Metabolic Hge962 eG FR 77 ml/min/1.73m2 04/19 Comp Metabolic Fft973 BUN 17 mg/dL 04/19/2016 Comp Metabolic Kvx522 B/ C Ratio 21.3 Ratio 04/19/2016 Comp Metabolic Cvi523 CA LCIUM 9.8 mg/dL 04/19/2016 Comp Metabolic Txa224 AL K PHOS 89 U/L 04/19/2016 Comp Metabolic Ods897 T(SGOT) 16 U/L 04/19/2016 Comp Metabolic Snx239 AL T(SGPT) 13 U/L 04/19/2016 Comp Metabolic Dyj567 BI LI T 0.4 mg/dL 04/19/2016 Comp Metabolic Qwp094 AL BUMIN 4.5 g/dL 04/19/2016 Comp Metabolic Tqx027 TP RO 7.2 g/dL 04/19/2016 Comp Metabolic Zcp287 GL OB 2.7 g/dL 04/19/2016 Comp Metabolic Qqh074 A/ G Ratio 1.7 Ratio 04/19/2016 Comp Metabolic Vvp690 Os mo 271 mOsmo 04/19/2016 Tsh Ord6 [...] 91.2 fl 04/19/2016 Cbc With Differential Ord2 [place]% 6.4 % 04/19/2016 Cbc With Differential Ord2 [...] 3.43 K/ul 04/19/2016 Cbc With Differential Ord2 [place] ABS# 0.7 K/ul 04/19/2016 Cbc With Differential [...] 37.0 % 07/11/2015 Cbc With Differential Ord2 [place]% 7.8 % 07/11/2015 Cbc With Differential Ord2 [...] 2.75 K/ul 07/11/2015 Cbc With Differential Ord2 [place] ABS# 0.6 K/ul 07/11/2015 Cbc With Differential Ord2 Eos ABS# 0.4 K/ul 07/11/2015 Cbc With Differential Ord2 Baso ABS# 0.1 K/ul 07/11/2015 Cbc With Differential Ord2 New Analyzer Notice Please note new ref ranges s tarting 05-24-2015 due to implemntation of new five part differential hematolgy analyzer. 07/11/2015 Comp Metabolic Kql195 NA 137 mEq/L 07/11/2015 Comp Metabolic Nay123 K 4.4 mEq/L 07/11/2015 Comp Metabolic Dfr198 CL 100 mEq/L 07/11/2015 Comp Metabolic Noo270 CO2 25.0 mEq/L 07/11/2015 Comp Metabolic Gyf323 AN ION GAP 16 07/11/2015 Comp Metabolic Djh502 GL UCOSE 75 mg/dL 07/11/2015 Comp Metabolic Dvq026 Cr eat 0.8 mg/dL 07/11/2015 Comp Metabolic Dju559 eG FR 76 ml/min/1.73m2 07/10 Comp Metabolic Fir043 BUN 18 mg/dL 07/11/2015 Comp Metabolic Hxw217 B/ C Ratio 22.2 Ratio 07/11/2015 Comp Metabolic Omb518 CA LCIUM 9.5 mg/dL 07/11/2015 Comp Metabolic Ewc769 AL K PHOS 92 U/L 07/11/2015 Comp Metabolic Bse706 T(SGOT) 16 U/L 07/11/2015 Comp Metabolic Rbx215 AL T(SGPT) 18 U/L 07/11/2015 Comp Metabolic Pxm862 BI LI T 0.6 mg/dL 07/11/2015 Comp Metabolic Tiu971 AL BUMIN 4.3 g/dL 07/11/2015 Comp Metabolic Ppe761 TP RO 6.7 g/dL 07/11/2015 Comp Metabolic Hry972 GL OB 2.4 g/dL 07/11/2015 Comp Metabolic Osu623 A/ G Ratio 1.7 Ratio 07/11/2015 Comp Metabolic Gtj984 Os mo 274 mOsmo 07/11/2015 Lipid Ord30 CHOL 197 mg/dL 07/11/2015 Lipid Ord30 HDL 55.0 mg/dl 07/11/2015 Lipid Ord30 TRIG 126 mg/dL 07/11/2015 Lipid Ord30 LDL 117 mg/dL 07/11/2015 Lipid Ord30 C/HDL 3.6 Ratio 07/11/2015 B12 Nxl853 B12 >1500.00 pg/ml 07/11/2015 Review of Systems [...] Procedure Codes Date DRAIN/INJECT JOINT/B URSA CPT-4: 74573 12/05/2016 TRIAMCINOLONE ACET I [place] NOS CPT-4: J3301 12/05/2016 DESTRUCT PREMALG LESION CPT-4: 82751 10/22/2016 PPPS, SUBSEQ VISIT CPT- 4: G0439 04/19/2016 Vital Signs Date Vital 02/18/2018 Blood Pressure 1: 100/52 Code: 8480-6 BMI: 31.9 Code: 98020-4 Heart Rate 1: 92 bpm Height: 5'3" SpO2: 90% Temperature: 36.6 (C ) / 97.9 (F) Weight: 180 lbs 01/08/2018 Blood Pressure 1: 140/80 Code: 8480-6 BMI: 32.6 Code: 94087-4 Heart Rate 1: 82 bpm Height: 5'3" SpO2: 92% Weight: 184 lbs 09/09/2017 Blood Pressure 1: 118/62 Code: 8480-6 BMI: 32.4 Code: 11155-7 Heart Rate 1: 80 bpm Height: 5'3" SpO2: 94% Weight: 183 lbs 03/25/2017 Blood Pressure 1: 122/68 Code: 8480-6 BMI: 31.2 Code: 72884-5 Heart Rate 1: 91 bpm Height: 5'3" SpO2: 95% Weight: 176 lbs 12/16/2016 Blood Pressure 1: 148/82 Code: 8480-6 Heart Rate 1: 77 bpm Height: 5'3" SpO2: 96% 12/05/2016 Blood Pressure 1: 138/72 Code: 8480-6 Heart Rate 1: 84 bpm Height: 5'3" SpO2: 92% Weight: 10/22/2016 Blood Pressure 1: 136/78 Code: 8480-6 BMI: 30.1 Code: 58599-7 Heart Rate 1: 70 bpm Height: 5'3" SpO2: 95% Weight: 170 lbs 09/25/2016 Blood Pressure 1: 122/72 Code: 8480-6 BMI: 29.8 Code: 31473-0 Heart Rate 1: 67 bpm Height: 5'3" SpO2: 97% Weight: 168 lbs 05/29/2016 Blood Pressure 1: 112/70 Code: 8480-6 BMI: 27.8 Code: 63559-5 Heart Rate 1: 102 bpm Height: 5'3" SpO2: 98% Weight: 157 lbs 04/19/2016 Blood Pressure 1: 128/58 Code: 8480-6 BMI: 28.5 Code: 94462-2 Heart Rate 1: 85 bpm Height: 5'3" SpO2: 98% Waist Measure (cm): 81 cm Weight: 161 lbs 04/17/2016 Blood Pressure 1: 128/82 Code: 8480-6 BMI: 28.5 Code: 77274-6 Heart Rate 1: 85 bpm Height: 5'3" SpO2: 98% Weight: 161 lbs 10/12/2015 Blood Pressure 1: 124/68 Code: 8480-6 BMI: 28.2 Code: 93342-4 Heart Rate 1: 72 bpm Height: 5'3" SpO2: 98% Weight: 159 lbs 07/11/2015 Blood Pressure 1: 128/88 Code: 8480-6 BMI: 28.5 Code: 00696-9 Heart Rate 1: 73 bpm Height: 5'3" SpO2: 93% Weight: 161 lbs 05/16/2015 Blood Pressure 1: 120/82 Code: 8480-6 BMI: 28.3 Code: 46478-5 Heart Rate 1: 82 bpm Height: 5'3" SpO2: 93% Weight: 160 lbs 11/03/2014 Blood Pressure 1: 132/74 Code: 8480-6 BMI: 27.6 Code: 41464-1 Heart Rate 1: 80 bpm Height: 5'3" [...] Encounters Encounter Performer Loca tion Codes Date ([id number]) 12632 EST. P ATIENT, LEVEL III Diagnosis: Acute bronchitis due to other specified organisms[ICD10: J20.8] Diagnosis: Cough[ICD10: R05] [facility] CPT-4: 07888 02/18/2018 ([id number]) 40446 EST. P ATIENT, LEVEL IV Diagnosis: Essential (primary) hypertension[ICD10: I10] Diagnosis: Low back pain[ICD10: M54.5] Diagnosis: Spinal stenosis, lumbosacral region[ICD10: M48.07] Diagnosis: Mixed hyperlipidemia[ICD10: E78.2] [facility] CPT- 4: 60374 01/08/2018 ([id number]) 01242 EST. P ATIENT, LEVEL IV Diagnosis: Essential (primary) hypertension[ICD10: I10] Diagnosis: Low back pain[ICD10: M54.5] Diagnosis: Spinal stenosis, lumbosacral region[ICD10: M48.07] Tamara Jones MD, [facility] CPT-4: 53994 09/09/2017 ([id number]) 10229 EST. P ATIENT, LEVEL IV Diagnosis: Essential (primary) hypertension[ICD10: I10] Diagnosis: Mixed hyperlipidemia[ICD10: E78.2] Diagnosis: Low back pain[ICD10: M54.5] Diagnosis: Pain in right hip[ICD10: M25.551] Diagnosis: Pain in left hip[ICD10: M25.552] Tamara Jones MD, [facility] CPT-4: 80411 03/25/2017 ([id number]) 86068 EST. P ATIENT, LEVEL III Diagnosis: Low back pain[ICD10: M54.5] Diagnosis: Sciatica, left side[ICD10: M54.32] Elina Jones MD, [facility] CPT-4: 73560 12/16/2016 14273 EST. PATIENT, LEVEL III Diagnosis: Sacroiliitis, not elsewhere classified[ICD10: M46.1] Diagnosis: Sciatica, left side[ICD10: M54.32] Diagnosis: Pain in left hip[ICD10: M25.552] Evelyn Jones MD, [facility] CPT-4: 95985 12/05/2016 ([id number]) 51679 EST. P ATIENT, LEVEL IV Diagnosis: Encounter for screening mammogram for malignant neoplasm of breast[ICD10: Z12.31] Diagnosis: Essential (primary) hypertension[ICD10: I10] Diagnosis: Mixed hyperlipidemia[ICD10: E78.2] Diagnosis: Major depressive disorder, recurrent, mild[ICD10: F33.0] Tamara Jones MD, [facility] CPT-4: 75576 09/25/2016 ([id number]) 26151 EST. P ATIENT, LEVEL IV Diagnosis: Essential (primary) hypertension[ICD10: I10] Diagnosis: Mixed hyperlipidemia[ICD10: E78.2] Diagnosis: Major depressive disorder, recurrent, moderate[ICD10: F33.1] Tamara Jones MD, [facility] CPT-4: 91023 05/29/2016 ([id number]) 62621 EST. P ATIENT, LEVEL IV Diagnosis: Essential (primary) hypertension[ICD10: I10] Diagnosis: Mixed hyperlipidemia[ICD10: E78.2] Diagnosis: Pain in right hip[ICD10: M25.551] Diagnosis: Major depressive disorder, recurrent, mild[ICD10: F33.0] Tamara Jones MD, [facility] CPT-4: 79090 04/17/2016 ([id number]) 44859 EST. P ATIENT, LEVEL IV Diagnosis: Essential (primary) hypertension[ICD10: I10] Diagnosis: Low back pain[ICD10: M54.5] Diagnosis: Mixed hyperlipidemia[ICD10: E78.2] Tamara Jones MD, [facility] CPT- 4: 12194 10/12/2015 ([id number]) 37882 EST. P ATIENT, LEVEL III Diagnosis: Essential (primary) hypertension[ICD10: I10] Diagnosis: Mixed hyperlipidemia[ICD10: E78.2] Diagnosis: Vitamin B12 deficiency anemia, unspecified[ICD10: D51.9] Elina Jones MD, [facility] CPT-4: 63833 07/11/2015 ([id number]) 08528 EST. P ATIENT, LEVEL IV Diagnosis: Essential (primary) hypertension[ICD10: I10] Diagnosis: Low back pain[ICD10: M54.5] Diagnosis: Sciatica, right side[ICD10: M54.31] Elina Jones MD, [facility] CPT-4: 41693 05/16/2015 ([id number]) OFFICE VISI T, [facility] - LEVEL 4 Diagnosis: ESSENTIAL HYPERTENSION[ICD9: 401.9] Diagnosis: HYPERLIPIDEMIA[ICD9: 272.4] Diagnosis: OSTEOARTH NOS-UNSPEC[ICD9: 715.90] Diagnosis: Sacroiliitis[ICD9: 720.2] Tamara Jones MD, [facility] CPT-4: 28138 11/03/2014 Plan of Care Planned Activity Notes C odes Status Date Appointment: Elina Rivera WPtel: [phone] [phone] (15 min) Moderate 02/27/2018 Appointment: Elina Rivera WPtel: [phone] [phone] (15 min) Moderate 02/23/2018 Visit Plan: Bronchitis - acute case of bronchitis identified. Pt has been given antibiotics, breathing treatments as appropriate, and pt has been instructed to call if symptoms are not improved, or if symptoms acutely worsen. 02/18/2018 Appointment: Tamara Jones WPtel: [facility] (15 min) Moderate 02/18/2018 Patient Education: Patient Medication Summary Completed 02/18/2018 Appointment: Tamara Jones WPtel: [phone] [phone] (15 min) Moderate 02/16/2018 Visit Plan: [...] not improving. 01/08/2018 Appointment: Tamara Jones WPtel: [facility] (15 min) Moderate 01/08/2018 Patient Education: [...] fasting labs to mag lab 09/09/2017 Appointment: Tamraa Jones WPtel: [facility] (15 min) Moderate 09/09/2017 Patient Education: Patient Medication Summary Completed 09/09/2017 Care Plan: Referral Order SNOMED-CT : [id number] Pending 09/09/2017 Appointment: Elina Rivera WPtel: [phone] [facility] - Annual Wellness Visit 04/25/2017 Visit [...] treatment/anti-inflammatory prn. 03/25/2017 Appointment: Tamara Jones WPtel: [facility] (15 min) Moderate 03/25/2017 Patient Education: Patient Medication Summary Completed 03/25/2017 Patient Education: Obesity Completed 03/25/2017 Visit Plan: Low back pain-plan to i ncrease gabapentin-use hydrocodone for break through pain-discussed PT-patient to make appt with Dr Aguilera to discuss further treatment options 12/16/2016 Appointment: Elina Rivera WPtel: [phone] (15 min) Moderate 12/16/2016 Patient [...] worsen. 12/05/2016 Appointment: Evelyn Orosco WPtel: [phone] [phone] (30 min) Complex 12/05/2016 Patient Education: Patient Medication Summary Completed 12/05/2016 Visit Plan: Wound Instructions - Pt was instructed to keep the wound clean, wash with antibacterial soap, use triple antibiotic ointment, call if redness, pustular drainage, or any other acute concerns. 10/22/2016 Appointment: Elina Rivera WPtel: [phone] [phone] (15 min) Moderate 10/22/2016 Patient [...] SSRI 09/25/2016 Appointment: Tamara Jones WPtel: [phone] [phone] (15 min) Moderate 09/25/2016 Patient Education: Patient Medication Summary Completed 09/25/2016 Patient Education: Obesity Completed 09/25/2016 Care Plan: SCREENINGMAMMOGRAPHYDIGITAL LOINC : 95856-9 Pending 09/25/2016 Visit Plan: Hypertension - well con carolin - continue with current medications, continue with [...] prescribed. 05/29/2016 Appointment: Tamara Jones WPtel: [phone] [phone] (15 min) Moderate 05/29/2016 Patient Education: Patient [...] surrogate. 04/19/2016 Appointment: Elina Rivera WPtel: [phone] [id number] [facility] - Annual Wellness Visit 04/19/2016 Patient [...] SSRI 04/17/2016 Appointment: Tamara Jones WPtel: [phone] [id number] (15 min) Moderate 04/17/2016 Patient Education: [...] medications. 10/12/2015 Appointment: Tam[facility] Jones [facility]el: [id number] (30 min) Complex 10/12/2015 Patient Education: Patient [...] improve or if they worsen. 11/03/2014 Appointment: KarenTamara WPtel: [id number] [place] ([place]) New Patient 11/03/2014 Patient Education: [...] pressure readings at home. [facility] . Wound Instructions - [...]
--- OUTSIDE RECORDS SUMMARY | 2019-09-24 08:54 | XMS REPORT | CCD ---
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 Name Role Phone PP Unavailable CCM Unavailable Summary Purpose Interface Exchange Insurance Providers Payer name Policy type / Coverage type Covered libertarian ID Effective Begin Date Effective End Date [place] [employer] Medicare Part B [id number] Unknown [facility] icare Part B [id number] Un known Family history Mother Diagnosis Age At Onset Diabetes mellitus Type 2 Unknown Father Diagnosis Age At Onset Depression Unknown Hyperlipidemia Unknown Hypertension Unknown Stroke Unknown Coronary Artery Disease Unknown Social History Social History Element Codes Description Effective Dates Marital status Unknown M arried Walter 11/03/2014 Number of children Unknown 0 11/03/2014 Employment Unknown Curre ntly unemployed 11/03/[address]: 1241574 Quit over 10 years ago 199911/03/2014 Alcohol [...] 7.5 mg-a cetaminophen 325 mg tablet RxNorm: 687348 1 Tablet(s) PO TID 04/30/2018 05/29/2018 Ac tive hydrocodone 7.5 mg-a cetaminophen 325 mg tablet RxNorm: 909755 1 Tablet(s) PO TID 03/26/2018 04/24/2018 In active prednisone 20 mg tablet RxNorm: 596873 2 Tablet(s) PO daily 02/18/2018 02/22/2018 Inactive Ventolin HFA 90 mcg/ actuation aerosol inhaler RxNorm: 223289 2 INH TID x 1 week th en twice daily x 5 days then as needed. 02/18/2018 04/18/2018 Inactive plea se give pt a spacer cefdinir 300 mg capsule RxNorm: 674823 1 Capsule(s) PO BID 02/18/2018 02/24/2018 Inactive memantine 10 mg tablet RxNorm: 241504 1/2 tab nightly x1wk then 1/2tab bid x1w k then 1/2tab am and 1tab hs x1wk then 1 Tablet(s) PO BID 01/08/2018 08/05/2018 Active hydrocodone 7.5 mg-a cetaminophen 325 mg tablet RxNorm: 673540 1 Tablet(s) PO TID 01/08/2018 02/06/2018 In active gabapentin 100 mg ca psule RxNorm: 275718 TAKE 1 CAPSULE BY [facility]OTT TH ONCE DAILY IN THE MORNING 12/24/2017 No Stop Date Active hydrocodone 7.5 mg-a cetaminophen 325 mg tablet RxNorm: 679962 1-2 Tablet(s) PO Q6 a s needed 12/01/2017 12/22/2017 Inactive diclofenac sodium 75 mg tablet,delayed release RxNorm: 938947 TAKE ONE TABLET BY [facility] TWICE DAILY 11/10/2017 No Stop Date Active hydrocodone 7.5 mg-a cetaminophen 325 mg tablet RxNorm: 684514 1-2 Tablet(s) PO Q6 a s needed 10/17/2017 11/07/2017 Inactive hydrocodone 7.5 mg-a cetaminophen 325 mg tablet RxNorm: 241307 1-2 Tablet(s) PO Q6 a s needed 09/01/2017 09/22/2017 Inactive hydrocodone 7.5 mg-a cetaminophen 325 mg tablet RxNorm: 964762 1-2 Tablet(s) PO Q6 a s needed 08/25/2017 08/31/2017 Inactive lisinopril 10 mg-hyd rochlorothiazide 12.5 mg tablet RxNorm: 512053 Tablet(s) TAKE ONE TABLET BY MOUTH ONCE DAILY 07/14/2017 07/08/2018 Active hydrocodone 7.5 mg-a cetaminophen 325 mg tablet RxNorm: 946950 1-2 Tablet(s) PO Q6 a s needed 07/14/2017 08/04/2017 Inactive gabapentin 100 mg ca psule RxNorm: 902619 1 Capsule(s) PO QAM 06/23/2017 12/19/2017 Inactive hydrocodone 7.5 mg-a cetaminophen 325 mg tablet RxNorm: 562177 1-2 Tablet(s) PO Q6 a s needed 05/20/2017 06/10/2017 Inactive Lipitor 20 mg tablet RxNorm: 327343 1 Tablet(s) PO TIW 05/13/2017 05/07/2018 Active escitalopram 10 mg t ablet RxNorm: 790463 1 Tablet(s) PO QPM 05/13/2017 05/07/2018 Active escitalopram 10 mg t ablet RxNorm: 499717 1 Tablet(s) PO QPM 04/16/2017 05/12/2017 Inactive lisinopril 10 mg-hyd rochlorothiazide 12.5 mg tablet RxNorm: 988395 TAKE ONE TABLET BY MOUTH ONCE DAILY 04/15/2017 07/13/2017 Inactive escitalopram 10 mg t ablet RxNorm: 700940 1 Tablet(s) PO QPM 04/09/2017 04/15/2017 Inactive hydrocodone 7.5 mg-a cetaminophen 325 mg tablet RxNorm: 771987 1-2 Tablet(s) PO Q6 a s needed 03/17/2017 04/07/2017 Inactive hydrocodone 7.5 mg-a cetaminophen 325 mg tablet RxNorm: 510659 1-2 Tablet(s) PO Q6 a s needed 12/27/2016 01/17/2017 Inactive gabapentin 100 mg ca psule RxNorm: 913500 1 Capsule(s) PO QAM 12/16/2016 06/13/2017 Inactive prednisone 20 mg tablet RxNorm: 310920 2 Tablet(s) PO daily 12/06/2016 12/05/2016 Inactive prednisone 20 mg tablet RxNorm: 749846 2 Tablet(s) PO daily 12/06/2016 12/15/2016 Inactive Kenalog 40 mg/mL christoph pension for injection RxNorm: 6063394 1 Milliliter(s) Inj 12/05/2016 12/05/2016 In active diclofenac sodium 75 mg tablet,delayed release RxNorm: 072926 1 Tablet(s) PO BID 10/30/2016 10/24/2017 In active hydrocodone 7.5 mg-a cetaminophen 325 mg tablet RxNorm: 039162 1-2 Tablet(s) PO Q6 a s needed 10/23/2016 11/13/2016 Inactive hydrocodone 7.5 mg-a cetaminophen 325 mg tablet RxNorm: 120125 1-2 Tablet(s) PO Q6 a s needed 08/16/2016 09/06/2016 Inactive lisinopril 10 mg-hyd rochlorothiazide 12.5 mg tablet RxNorm: 932190 TAKE ONE TABLET BY MOUTH ONCE DAILY 06/07/2016 04/14/2017 Inactive Lipitor 40 mg tablet RxNorm: 077189 1 Tablet(s) PO TIW 05/31/2016 05/01/2017 Inactive Lipitor 20 mg tablet RxNorm: 397904 1 Tablet(s) PO TIW 05/29/2016 05/30/2016 Inactive hydrocodone 7.5 mg-a cetaminophen 325 mg tablet RxNorm: 084694 1-2 Tablet(s) PO Q6 a s needed 05/23/2016 06/13/2016 Inactive escitalopram 10 mg t ablet RxNorm: 678646 1 Tablet(s) PO QPM st art at 1/2 pill nightly x 1wk then a full pill thereafter 04/17/2016 04/08/2017 Inactive hydrocodone 7.5 mg-a cetaminophen 325 mg tablet RxNorm: 500065 1-2 Tablet(s) PO Q6 a s needed 02/28/2016 03/20/2016 Inactive hydrocodone 7.5 mg-a cetaminophen 325 mg tablet RxNorm: 565980 1-2 Tablet(s) PO Q6 a s needed 12/04/2015 12/25/2015 Inactive diclofenac sodium 75 mg tablet,delayed release RxNorm: 371011 1 Tablet(s) PO BID 10/23/2015 10/16/2016 In active hydrocodone 7.5 mg-a cetaminophen 325 mg tablet RxNorm: 019492 1-2 Tablet(s) PO Q6 a s needed 09/12/2015 12/03/2015 Inactive promethazine 25 mg t ablet RxNorm: 729149 1 Tablet(s) PO Q6 as needed 08/30/2015 No Stop Date Active lisinopril 10 mg-hyd rochlorothiazide 12.5 mg tablet RxNorm: 173732 1 Tablet(s) PO daily 05/09/2015 05/02/2016 Inactive hydrocodone 7.5 mg-a cetaminophen 325 mg tablet RxNorm: 446292 1-2 Tablet(s) PO Q6 a s needed 04/17/2015 09/11/2015 Inactive lisinopril 10 mg-hyd rochlorothiazide 12.5 mg tablet RxNorm: 690265 1 Tablet(s) PO daily 01/31/2015 05/08/2015 Inactive hydrocodone 7.5 mg-a cetaminophen 325 mg tablet RxNorm: 604601 1-2 Tablet(s) PO Q6 a s needed 01/18/2015 04/16/2015 Inactive diclofenac sodium 75 mg tablet,delayed release RxNorm: 067969 1 Tablet(s) PO BID 01/18/2015 10/14/2015 In active Voltaren 1 % topical gel RxNorm: 216855 4 Gram(s) TOP QID chelsie ly to sacroiliac joint 11/03/2014 05/15/2015 In active lisinopril 10 mg-hyd rochlorothiazide 12.5 mg tablet RxNorm: 553009 1 Tablet(s) PO daily 11/03/2014 12/02/2014 Inactive B-12 Plus sublingual RxNorm: 26888 sublingual No Start Date Active amoxicillin 500 mg c apsule RxNorm: 557901 4 Capsule(s) PO as do ctor directed 1 hours before appt No Start Date Active gabapentin 300 mg ca psule RxNorm: 892470 1 Capsule(s) PO QHS No Start Date Active promethazine 25 mg t ablet RxNorm: 546857 1 Tablet(s) PO Q6 as needed No Start Date 08/29/2015 Inactive diclofenac sodium 75 mg tablet,delayed release RxNorm: 360379 1 Tablet(s) PO BID No Start Date 01/17/2015 Inactive hydrocodone 7.5 mg-a cetaminophen 325 mg tablet RxNorm: 894852 1-2 Tablet(s) PO Q6 a s needed No Start Date 01/17/2015 Inactive Crestor 5 mg tablet RxNorm: 892337 1 Tablet(s) PO 3 x week No Start Date 05/28/2016 Inactive Medication Administered Medication Codes Instruc tions Start Date Status Kenalog 40 mg/mL suspension for injection RxNorm: 9975721 1Milliliter 12/05/2016 N o longer Active Immunizations [...] Actinic keratosis ICD-10: L57.0 ICD-9: 702.0 10/22/2016 Mixed hyperlipidemia ICD-10: E78.2 ICD-9: 272.2 09/25/2016 Major depressive disorder, recurrent, mild ICD-10: F33.0 ICD-9: 296.31 09/25/2016 Encounter for screening mammogram for ma lignant neoplasm of breast ICD-10: Z12.31 ICD-9: V76.12 09/25/2016 Major depressive disorder, recurrent, moderate ICD-10: F33.1 ICD-9: 296.32 05/29/2016 Essential (primary) hypertension ICD -10: I10 ICD-9: 401.9 05/29/2016 Encounter for general adult medical exam ination with abnormal findings ICD-10: Z00.01 ICD-9: V70.0 04/19/2016 Vitamin B12 deficiency anemia, unspecified ICD-10: D51.9 ICD-9: 281.1 07/11/2015 Sciatica, right side ICD-10: M54.31 ICD-9: 724.3 05/16/2015 Sacroiliitis ICD-9: 720.2 11/03/2014 OSTEOARTH NOS-UNSPEC ICD-9: 715.90 11/03/2014 HYPERLIPIDEMIA ICD-9: 272.4 11/03/2014 ESSENTIAL HYPERTENSION ICD-9: 401.9 11/03/2014 Reason For Visit Reason For Visit [...] (3rd IS) 2.04 uIU/mL 01/14/2018 Comp Metabolic Jmg617 NA 140 mEq/L 01/14/2018 Comp Metabolic Emv496 K 3.8 mEq/L 01/14/2018 Comp Metabolic Nor082 CL 101 mEq/L 01/14/2018 Comp Metabolic Uaf350 CO2 30.0 mEq/L 01/14/2018 Comp Metabolic Fsy901 AN ION GAP 13 01/14/2018 Comp Metabolic Jqa179 GL UCOSE 89 mg/dL 01/14/2018 Comp Metabolic Byl706 Cr eat 1.0 mg/dL 01/14/2018 Comp Metabolic Liv056 eG FR 63 ml/min/1.73m2 01/14 Comp Metabolic Mav611 BUN 16 mg/dL 01/14/2018 Comp Metabolic Cle063 B/ C Ratio 16.8 Ratio 01/14/2018 Comp Metabolic Ecq167 CA LCIUM 9.2 mg/dL 01/14/2018 Comp Metabolic Cvy475 AL K PHOS 88 U/L 01/14/2018 Comp Metabolic Vga822 T(SGOT) 13 U/L 01/14/2018 Comp Metabolic Xth162 AL T(SGPT) 9 U/L 01/14/2018 Comp Metabolic Vgf030 BI LI T 0.5 mg/dL 01/14/2018 Comp Metabolic Nad076 AL BUMIN 4.0 g/dL 01/14/2018 Comp Metabolic Yfe115 TP RO 6.5 g/dL 01/14/2018 Comp Metabolic Lzz313 GL OB 2.5 g/dL 01/14/2018 Comp Metabolic Ump222 A/ G Ratio 1.6 Ratio 01/14/2018 Comp Metabolic Iuk244 Os mo 280 mOsmo 01/14/2018 Cbc With [...] 31.5 pg 01/14/2018 Cbc With Differential Ord2 Bowie% 8.5 % 01/14/2018 Cbc With Differential Ord2 [...] 3.44 K/ul 01/14/2018 Cbc With Differential Ord2 Bowie ABS# 0.9 K/ul 01/14/2018 Cbc With Differential Ord2 Eos ABS# 0.3 K/ul 01/14/2018 Cbc With Differential Ord2 Baso ABS# 0.0 K/ul 01/14/2018 Lipid Ord30 CHOL 148 mg/dL 09/10/2017 Lipid Ord30 HDL 41.0 mg/dl 09/10/2017 Lipid Ord30 TRIG 66 mg/dL 09/10/2017 Lipid Ord30 LDL 94 mg/dL 09/10/2017 Lipid Ord30 C/HDL 3.6 Ratio 09/10/2017 Comp Metabolic Jmh496 NA 140 mEq/L 09/10/2017 Comp Metabolic Jfo669 K 4.2 mEq/L 09/10/2017 Comp Metabolic Hxs545 CL 107 mEq/L 09/10/2017 Comp Metabolic Ugh125 CO2 25.0 mEq/L 09/10/2017 Comp Metabolic Gbp463 AN ION GAP 12 09/10/2017 Comp Metabolic Ocu000 GL UCOSE 84 mg/dL 09/10/2017 Comp Metabolic Mey603 Cr eat 0.7 mg/dL 09/10/2017 Comp Metabolic Yrh333 eG FR 85 ml/min/1.73m2 09/10 Comp Metabolic Bgo924 BUN 11 mg/dL 09/10/2017 Comp Metabolic Ant828 B/ C Ratio 15.1 Ratio 09/10/2017 Comp Metabolic Dfb818 CA LCIUM 9.1 mg/dL 09/10/2017 Comp Metabolic Ylp466 AL K PHOS 61 U/L 09/10/2017 Comp Metabolic Hyt697 T(SGOT) 38 U/L 09/10/2017 Comp Metabolic Knk525 AL T(SGPT) 24 U/L 09/10/2017 Comp Metabolic Gaw162 BI LI T 0.5 mg/dL 09/10/2017 Comp Metabolic Zgd240 AL BUMIN 4.0 g/dL 09/10/2017 Comp Metabolic Sot308 TP RO 6.6 g/dL 09/10/2017 Comp Metabolic Dmg285 GL OB 2.6 g/dL 09/10/2017 Comp Metabolic Gak695 A/ G Ratio 1.6 Ratio 09/10/2017 Comp Metabolic Tem521 Os mo 278 mOsmo 09/10/2017 Tsh Ord6 TSH (3rd IS) 1.22 [...] 31.0 pg 09/10/2017 Cbc With Differential Ord2 Bowie% 9.2 % 09/10/2017 Cbc With Differential Ord2 MCHC 33.1 pg 09/10/2017 Cbc With Differential Ord2 Eos% 2.4 % 09/10/2017 Cbc With Differential Ord2 PLT 310 K/ul 09/10/2017 Cbc With Differential Ord2 Baso% 0.4 % 09/10/2017 Cbc With Differential Ord2 Neut ABS# 2.94 K/ul 09/10/2017 Cbc With Differential Ord2 RDW 13.5 % 09/10/2017 Cbc With Differential Ord2 Lymph ABS# 1.82 K/ul 09/10/2017 Cbc With Differential Ord2 Bowie ABS# 0.5 K/ul 09/10/2017 Cbc With Differential Ord2 Eos ABS# 0.1 K/ul 09/10/2017 Cbc With Differential Ord2 Baso ABS# 0.0 K/ul 09/10/2017 Comp Metabolic Wqh196 NA 139 mEq/L 09/25/2016 Comp Metabolic Dfy585 K 4.5 mEq/L 09/25/2016 Comp Metabolic Hyp684 CL 102 mEq/L 09/25/2016 Comp Metabolic Tuw846 CO2 29.0 mEq/L 09/25/2016 Comp Metabolic Bdy083 AN ION GAP 13 09/25/2016 Comp Metabolic Auw386 GL UCOSE 84 mg/dL 09/25/2016 Comp Metabolic Fcq582 Cr eat 0.9 mg/dL 09/25/2016 Comp Metabolic Vki743 eG FR 70 ml/min/1.73m2 09/25 Comp Metabolic Mje240 BUN 21 mg/dL 09/25/2016 Comp Metabolic Otx660 B/ C Ratio 24.1 Ratio 09/25/2016 Comp Metabolic Wkp546 CA LCIUM 9.2 mg/dL 09/25/2016 Comp Metabolic Uth064 AL K PHOS 89 U/L 09/25/2016 Comp Metabolic Pnm131 T(SGOT) 19 U/L 09/25/2016 Comp Metabolic Jwo531 AL T(SGPT) 19 U/L 09/25/2016 Comp Metabolic Otm224 BI LI T 0.5 mg/dL 09/25/2016 Comp Metabolic Law275 AL BUMIN 4.1 g/dL 09/25/2016 Comp Metabolic Ghy384 TP RO 6.5 g/dL 09/25/2016 Comp Metabolic Qrh591 GL OB 2.4 g/dL 09/25/2016 Comp Metabolic Quf859 A/ G Ratio 1.7 Ratio 09/25/2016 Comp Metabolic Ewn920 Os mo 280 mOsmo 09/25/2016 Lipid Ord30 [...] 58.4 % 09/25/2016 Cbc With Differential Ord2 Lymph% 30.4 % 09/25/2016 Cbc With Differential Ord2 MCV 94.6 fl 09/25/2016 Cbc With Differential Ord2 Bowie% 7.7 % 09/25/2016 Cbc With Differential Ord2 [...] 2.84 K/ul 09/25/2016 Cbc With Differential Ord2 Bowie ABS# 0.7 K/ul 09/25/2016 Cbc With Differential [...] 60.2 % 04/19/2016 Cbc With Differential Ord2 Lymph% 31.1 % 04/19/2016 Cbc With Differential Ord2 MCV 91.2 fl 04/19/2016 Cbc With Differential Ord2 MCH 30.9 pg 04/19/2016 Cbc With Differential Ord2 Bowie% 6.4 % 04/19/2016 Cbc With Differential Ord2 [...] 3.43 K/ul 04/19/2016 Cbc With Differential Ord2 Bowie ABS# 0.7 K/ul 04/19/2016 Cbc With Differential Ord2 Eos ABS# 0.2 K/ul 04/19/2016 Cbc With Differential Ord2 Baso ABS# 0.0 K/ul 04/19/2016 Comp Metabolic Epa060 NA 135 mEq/L 04/19/2016 Comp Metabolic Aku911 K 4.2 mEq/L 04/19/2016 Comp Metabolic Vok734 CL 97 mEq/L 04/19/2016 Comp Metabolic Sdv691 CO2 28.0 mEq/L 04/19/2016 Comp Metabolic Ssb485 AN ION GAP 14 04/19/2016 Comp Metabolic Vul362 GL UCOSE 89 mg/dL 04/19/2016 Comp Metabolic Hpx629 Cr eat 0.8 mg/dL 04/19/2016 Comp Metabolic Rzp093 eG FR 77 ml/min/1.73m2 04/19 Comp Metabolic Vfm901 BUN 17 mg/dL 04/19/2016 Comp Metabolic Pln928 B/ C Ratio 21.3 Ratio 04/19/2016 Comp Metabolic Hfl169 CA LCIUM 9.8 mg/dL 04/19/2016 Comp Metabolic Amj570 AL K PHOS 89 U/L 04/19/2016 Comp Metabolic Kgn271 T(SGOT) 16 U/L 04/19/2016 Comp Metabolic Mfh714 AL T(SGPT) 13 U/L 04/19/2016 Comp Metabolic Lsz622 BI LI T 0.4 mg/dL 04/19/2016 Comp Metabolic Pgx776 AL BUMIN 4.5 g/dL 04/19/2016 Comp Metabolic Jwh553 TP RO 7.2 g/dL 04/19/2016 Comp Metabolic Mnc974 GL OB 2.7 g/dL 04/19/2016 Comp Metabolic Oqs261 A/ G Ratio 1.7 Ratio 04/19/2016 Comp Metabolic Cri164 Os mo 271 mOsmo 04/19/2016 Lipid Ord30 CHOL 283 mg/dL 04/19/2016 Lipid Ord30 HDL 56.0 mg/dl 04/19/2016 Lipid Ord30 TRIG 115 mg/dL 04/19/2016 Lipid Ord30 LDL 204 mg/dL 04/19/2016 Lipid Ord30 C/HDL 5.1 Ratio 04/19/2016 Tsh Ord6 hTSH II 1.91 uIU/mL 07/11/2015 B12 Exg158 B12 >1500.00 pg/ml 07/11/2015 Lipid Ord30 CHOL 197 mg/dL 07/11/2015 Lipid Ord30 HDL 55.0 mg/dl 07/11/2015 Lipid Ord30 TRIG 126 mg/dL 07/11/2015 Lipid Ord30 LDL 117 mg/dL 07/11/2015 Lipid Ord30 C/HDL 3.6 Ratio 07/11/2015 Comp Metabolic Umb027 NA 137 mEq/L 07/11/2015 Comp Metabolic Ajx560 K 4.4 mEq/L 07/11/2015 Comp Metabolic Gfa380 CL 100 mEq/L 07/11/2015 Comp Metabolic Xaj649 CO2 25.0 mEq/L 07/11/2015 Comp Metabolic Hqr811 AN ION GAP 16 07/11/2015 Comp Metabolic Flx729 GL UCOSE 75 mg/dL 07/11/2015 Comp Metabolic Gbd816 Cr eat 0.8 mg/dL 07/11/2015 Comp Metabolic Map908 eG FR 76 ml/min/1.73m2 07/10 Comp Metabolic Och731 BUN 18 mg/dL 07/11/2015 Comp Metabolic Zhy423 B/ C Ratio 22.2 Ratio 07/11/2015 Comp Metabolic Eum477 CA LCIUM 9.5 mg/dL 07/11/2015 Comp Metabolic Dpo447 AL K PHOS 92 U/L 07/11/2015 Comp Metabolic Wcs478 T(SGOT) 16 U/L 07/11/2015 Comp Metabolic Jan408 AL T(SGPT) 18 U/L 07/11/2015 Comp Metabolic Yog258 BI LI T 0.6 mg/dL 07/11/2015 Comp Metabolic Efr982 AL BUMIN 4.3 g/dL 07/11/2015 Comp Metabolic Hgc848 TP RO 6.7 g/dL 07/11/2015 Comp Metabolic Keg816 GL OB 2.4 g/dL 07/11/2015 Comp Metabolic Wbl956 A/ G Ratio 1.7 Ratio 07/11/2015 Comp Metabolic Uxt318 Os mo 274 mOsmo 07/11/2015 Cbc With [...] 30.8 pg 07/11/2015 Cbc With Differential Ord2 Bowie% 7.8 % 07/11/2015 Cbc With Differential Ord2 Eos% 5.0 % 07/11/2015 Cbc With Differential Ord2 MCHC 33.5 pg 07/11/2015 Cbc With Differential Ord2 PLT 304 K/ul 07/11/2015 Cbc With Differential Ord2 Baso% 0.7 % 07/11/2015 Cbc With Differential Ord2 RDW 13.2 % 07/11/2015 Cbc With Differential Ord2 Neut ABS# 3.68 K/ul 07/11/2015 Cbc With Differential Ord2 Lymph ABS# 2.75 K/ul 07/11/2015 Cbc With Differential Ord2 Bowie ABS# 0.6 K/ul 07/11/2015 Cbc With Differential Ord2 Eos ABS# 0.4 K/ul 07/11/2015 Cbc With Differential Ord2 Baso ABS# 0.1 K/ul 07/11/2015 Cbc With Differential Ord2 New Analyzer Notice Please note new ref ranges s tarting 05-24-2015 due to implemntation of new five part differential hematolgy analyzer. 07/11/2015 Review of Systems System Result Effective [...] Procedure Codes Date DRAIN/INJECT JOINT/B URSA CPT-4: 32242 12/05/2016 TRIAMCINOLONE ACET I [place] NOS CPT-4: J3301 12/05/2016 DESTRUCT PREMALG LESION CPT-4: 02951 10/22/2016 PPPS, SUBSEQ VISIT CPT- 4: G0439 04/19/2016 Vital Signs Date Vital 02/18/2018 Blood Pressure 1: 100/52 Code: 8480-6 BMI: 31.9 Code: 37067-2 Heart Rate 1: 92 bpm Height: 5'3" SpO2: 90% Temperature: 36.6 (C ) / 97.9 (F) Weight: 180 lbs 01/08/2018 Blood Pressure 1: 140/80 Code: 8480-6 BMI: 32.6 Code: 34702-2 Heart Rate 1: 82 bpm Height: 5'3" SpO2: 92% Weight: 184 lbs 09/09/2017 Blood Pressure 1: 118/62 Code: 8480-6 BMI: 32.4 Code: 08299-0 Heart Rate 1: 80 bpm Height: 5'3" SpO2: 94% Weight: 183 lbs 03/25/2017 Blood Pressure 1: 122/68 Code: 8480-6 BMI: 31.2 Code: 78641-0 Heart Rate 1: 91 bpm Height: 5'3" SpO2: 95% Weight: 176 lbs 12/16/2016 Blood Pressure 1: 148/82 Code: 8480-6 Heart Rate 1: 77 bpm Height: 5'3" SpO2: 96% 12/05/2016 Blood Pressure 1: 138/72 Code: 8480-6 Heart Rate 1: 84 bpm Height: 5'3" SpO2: 92% Weight: 10/22/2016 Blood Pressure 1: 136/78 Code: 8480-6 BMI: 30.1 Code: 26647-9 Heart Rate 1: 70 bpm Height: 5'3" SpO2: 95% Weight: 170 lbs 09/25/2016 Blood Pressure 1: 122/72 Code: 8480-6 BMI: 29.8 Code: 30523-7 Heart Rate 1: 67 bpm Height: 5'3" SpO2: 97% Weight: 168 lbs 05/29/2016 Blood Pressure 1: 112/70 Code: 8480-6 BMI: 27.8 Code: 88509-2 Heart Rate 1: 102 bpm Height: 5'3" SpO2: 98% Weight: 157 lbs 04/19/2016 Blood Pressure 1: 128/58 Code: 8480-6 BMI: 28.5 Code: 99908-1 Heart Rate 1: 85 bpm Height: 5'3" SpO2: 98% Waist Measure (cm): 81 cm Weight: 161 lbs 04/17/2016 Blood Pressure 1: 128/82 Code: 8480-6 BMI: 28.5 Code: 09528-3 Heart Rate 1: 85 bpm Height: 5'3" SpO2: 98% Weight: 161 lbs 10/12/2015 Blood Pressure 1: 124/68 Code: 8480-6 BMI: 28.2 Code: 62425-0 Heart Rate 1: 72 bpm Height: 5'3" SpO2: 98% Weight: 159 lbs 07/11/2015 Blood Pressure 1: 128/88 Code: 8480-6 BMI: 28.5 Code: 92855-5 Heart Rate 1: 73 bpm Height: 5'3" SpO2: 93% Weight: 161 lbs 05/16/2015 Blood Pressure 1: 120/82 Code: 8480-6 BMI: 28.3 Code: 79951-4 Heart Rate 1: 82 bpm Height: 5'3" SpO2: 93% Weight: 160 lbs 11/03/2014 Blood Pressure 1: 132/74 Code: 8480-6 BMI: 27.6 Code: 00978-9 Heart Rate 1: 80 bpm Height: 5'3" [...] Encounters Encounter Performer Loca tion Codes Date ([id number]) [id number] EST. P [facility] Diagnosis: Acute bronchitis due to other specified organisms[ICD10: J20.8] Diagnosis: Cough[ICD10: R05] [facility] CPT-4: 23834 02/18/2018 ([id number] [id number] EST. P [facility] Diagnosis: Essential (primary) hypertension[ICD10: I10] Diagnosis: Low back pain[ICD10: M54.5] Diagnosis: Spinal stenosis, lumbosacral region[ICD10: M48.07] Diagnosis: Mixed hyperlipidemia[ICD10: E78.2] [facility] CPT- 4: 48215 01/08/2018 [id number] EST. [facility] Diagnosis: Essential (primary) hypertension[ICD10: I10] Diagnosis: Low back pain[ICD10: M54.5] Diagnosis: Spinal stenosis, lumbosacral region[ICD10: M48.07] [facility] CPT-4: 17491 09/09/2017 ([id number]) [id number] EST. P ATIENT, LEVEL IV Diagnosis: Essential (primary) hypertension[ICD10: I10] Diagnosis: Mixed hyperlipidemia[ICD10: E78.2] Diagnosis: Low back pain[ICD10: M54.5] Diagnosis: Pain in right hip[ICD10: M25.551] Diagnosis: Pain in left hip[ICD10: M25.552] Tamara Jones MD, [facility] CPT-4: 45270 03/25/2017 ([id number]) [id number] EST. P ATIENT, LEVEL III Diagnosis: Low back pain[ICD10: M54.5] Diagnosis: Sciatica, left side[ICD10: M54.32] Elina Jones MD, [facility] CPT-4: 31982 12/16/2016 [id number] EST. PATIENT, LEVEL III Diagnosis: Sacroiliitis, not elsewhere classified[ICD10: M46.1] Diagnosis: Sciatica, left side[ICD10: M54.32] Diagnosis: Pain in left hip[ICD10: M25.552] Evelyn Jones MD, [facility] CPT-4: 04679 12/05/2016 ([id number]) [id number] EST. P ATIENT, LEVEL IV Diagnosis: Encounter for screening mammogram for malignant neoplasm of breast[ICD10: Z12.31] Diagnosis: Essential (primary) hypertension[ICD10: I10] Diagnosis: Mixed hyperlipidemia[ICD10: E78.2] Diagnosis: Major depressive disorder, recurrent, mild[ICD10: F33.0] [facility] CPT-4: 95547 09/25/2016 ([id number]) 83404 EST. P ATIENT, LEVEL IV Diagnosis: Essential (primary) hypertension[ICD10: I10] Diagnosis: Mixed hyperlipidemia[ICD10: E78.2] Diagnosis: Major depressive disorder, recurrent, moderate[ICD10: F33.1] Tamara Jones MD, [facility] CPT-4: 78523 05/29/2016 ([id number]) [id number] EST. P ATIENT, LEVEL IV Diagnosis: Essential (primary) hypertension[ICD10: I10] Diagnosis: Mixed hyperlipidemia[ICD10: E78.2] Diagnosis: Pain in right hip[ICD10: M25.551] Diagnosis: Major depressive disorder, recurrent, mild[ICD10: F33.0] Tamara Jones MD, [facility] CPT-4: 37329 04/17/2016 ([id number]) 71696 EST. P ATIENT, LEVEL IV Diagnosis: Essential (primary) hypertension[ICD10: I10] Diagnosis: Low back pain[ICD10: M54.5] Diagnosis: Mixed hyperlipidemia[ICD10: E78.2] Tamara Jones MD, [facility] CPT- 4: 64140 10/12/2015 ([id number]) 24051 EST. P ATIENT, LEVEL III Diagnosis: Essential (primary) hypertension[ICD10: I10] Diagnosis: Mixed hyperlipidemia[ICD10: E78.2] Diagnosis: Vitamin B12 deficiency anemia, unspecified[ICD10: D51.9] Elina Jones MD, [facility] CPT-4: 06527 07/11/2015 ([id number]) 03596 EST. P ATIENT, LEVEL IV Diagnosis: Essential (primary) hypertension[ICD10: I10] Diagnosis: Low back pain[ICD10: M54.5] Diagnosis: Sciatica, right side[ICD10: M54.31] Elina Jones MD, [facility] CPT-4: 63115 05/16/2015 ([id number]) OFFICE VISI T, [facility] - LEVEL 4 Diagnosis: ESSENTIAL HYPERTENSION[ICD9: 401.9] Diagnosis: HYPERLIPIDEMIA[ICD9: 272.4] Diagnosis: OSTEOARTH NOS-UNSPEC[ICD9: 715.90] Diagnosis: Sacroiliitis[ICD9: 720.2] Tamara Jones MD, [facility] CPT-4: 38539 11/03/2014 Plan of Care Planned Activity Notes C odes Status Date Appointment: Elina Rivera WPtel: [address] [place], [place] [phone] (15 min) Moderate 02/27/2018 Appointment: Elina Rivera WPtel: [phone] [phone] [place] (15 min) Moderate 02/23/2018 Visit Plan: Bronchitis - acute case of bronchitis identified. Pt has been given antibiotics, breathing treatments as appropriate, and pt has been instructed to call if symptoms are not improved, or if symptoms acutely worsen. 02/18/2018 Appointment: Tamara Jones WPtel: [phone] [facility] [place] (15 min) Moderate 02/18/2018 Patient Education: Patient Medication Summary Completed 02/18/2018 Appointment: Tamara Jones WPtel: [phone] [facility] (15 min) Moderate 02/16/2018 Visit Plan: Hypertension [...] not improving. 01/08/2018 Appointment: Tamara Jones WPtel: [facility] [place] (15 min) Moderate 01/08/2018 Patient Education: [...] lab 09/09/2017 Appointment: Tamara Jones WPtel: [phone] [facility] (15 min) Moderate 09/09/2017 Patient Education: Patient Medication Summary Completed 09/09/2017 Care Plan: Referral Order SNOMED-CT : [id number] Pending 09/09/2017 Appointment: Elina Rivera WPtel: [place] [id number] [facility] - Annual Wellness Visit 04/25/2017 Visit [...] treatment/anti-inflammatory prn. 03/25/2017 Appointment: Tamara Jones WPtel: [facility] (15 min) Moderate 03/25/2017 Patient Education: Patient Medication Summary Completed 03/25/2017 Patient Education: Obesity Completed 03/25/2017 Visit Plan: Low back pain-plan to i ncrease gabapentin-use hydrocodone for break through pain-discussed PT-patient to make appt with Dr Morales to discuss further treatment options 12/16/2016 Appointment: Elina Rivera WPtel: [phone] (15 min) Moderate 12/16/2016 Patient Education: [...] worsen. 12/05/2016 Appointment: Evelyn Orosco WPtel: [phone] [facility] (30 min) Complex 12/05/2016 Patient Education: Patient Medication Summary Completed 12/05/2016 Visit Plan: Wound Instructions - Pt was instructed to keep the wound clean, wash with antibacterial soap, use triple antibiotic ointment, call if redness, pustular drainage, or any other acute concerns. 10/22/2016 Appointment: Elina Rivera WPtel: [phone] [phone] (15 min) Moderate 10/22/2016 Patient Education: [...] SSRI 09/25/2016 Appointment: Tamara Jones WPtel: [phone] [facility] (15 min) Moderate 09/25/2016 Patient Education: Patient Medication Summary Completed 09/25/2016 Patient Education: Obesity Completed 09/25/2016 Care Plan: SCREENINGMAMMOGRAPHYDIGITAL LOINC : 84227-2 Pending 09/25/2016 Visit Plan: Hypertension - well [...] prescribed. 05/29/2016 Appointment: Tamara Jones WPtel: [phone] [facility] (15 min) Moderate 05/29/2016 Patient Education: Patient [...] surrogate. 04/19/2016 App[facility]ment: [facility]el[phone] [facility] - Annual Wellness Visit 04/19/2016 Patient [...] for SSRI 04/17/2016 Appointment: Tamara Jones WPtel: [phone] [facility] (15 min) Moderate 04/17/2016 Patient Education: Patient [...] to medications. 10/12/2015 Appointment: Tamara Jones WPtel: [phone] [facility] (30 min) Complex 10/12/2015 Patient Education: Patient [...] 07/11/2015 Visit Plan: Hypertension - well con mendozaed - continue with current medications, continue with [...] 05/01/2015 Visit Plan: Hypertension - well con chevylled [...] worsen. 11/03/2014 Appointment: Tam[facility] Jones [facility]Ptel: [phone] [place] New Patient 11/03/2014 Patient Education: [...] pressure readings at home. fasting labs to [facility] . Wound Instructions - Pt was [...]
--- OUTSIDE RECORDS SUMMARY | 2019-09-24 08:55 | XMS REPORT | CCD ---
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 Name Role Phone PP Unavailable CCM Unavailable Summary Purpose Interface Exchange Insurance Providers Payer name Policy type / Coverage type Covered democrat ID Effective Begin Date Effective End Date [place] [employer] Medicare Part B [id number] Unknown [facility] icare Part B [id number] Un known Family history Mother Diagnosis Age At Onset Diabetes mellitus Type 2 Unknown Father Diagnosis Age At Onset Depression Unknown Hyperlipidemia Unknown Hypertension Unknown Stroke Unknown Coronary Artery Disease Unknown Social History Social History Element Codes Description Effective Dates Marital status Unknown M arried Walter 11/03/2014 Number of children Unknown 0 11/03/2014 Employment Unknown Curre ntly unemployed 11/03/[address]: 1466276 Quit over 10 years ago 199911/03/2014 Alcohol [...] 7.5 mg-a cetaminophen 325 mg tablet RxNorm: 122979 1 Tablet(s) PO TID 03/26/2018 04/24/2018 Ac tive Ventolin HFA 90 mcg/ actuation aerosol inhaler RxNorm: 773973 2 INH TID x 1 week th en twice daily x 5 days then as needed. 02/18/2018 04/18/2018 Active please give pt a spacer prednisone 20 mg tablet RxNorm: 283488 2 Tablet(s) PO daily 02/18/2018 02/22/2018 Inactive cefdinir 300 mg capsule RxNorm: 532371 1 Capsule(s) PO BID 02/18/2018 02/24/2018 Inactive memantine 10 mg tablet RxNorm: 592504 1/2 tab nightly x1wk then 1/2tab bid x1w k then 1/2tab am and 1tab hs x1wk then 1 Tablet(s) PO BID 01/08/2018 08/05/2018 Active hydrocodone 7.5 mg-a cetaminophen 325 mg tablet RxNorm: 911512 1 Tablet(s) PO TID 01/08/2018 02/06/2018 In active gabapentin 100 mg ca psule RxNorm: 519461 TAKE 1 CAPSULE BY SCOTT TH ONCE DAILY IN THE MORNING 12/24/2017 No Stop Date Active hydrocodone 7.5 mg-a cetaminophen 325 mg tablet RxNorm: 014226 1-2 Tablet(s) PO Q6 a s needed 12/01/2017 12/22/2017 Inactive diclofenac sodium 75 mg tablet,delayed release RxNorm: 884172 TAKE ONE TABLET BY MO UTH TWICE DAILY 11/10/2017 No Stop Date Active hydrocodone 7.5 mg-a cetaminophen 325 mg tablet RxNorm: 154920 1-2 Tablet(s) PO Q6 a s needed 10/17/2017 11/07/2017 Inactive hydrocodone 7.5 mg-a cetaminophen 325 mg tablet RxNorm: 105461 1-2 Tablet(s) PO Q6 a s needed 09/01/2017 09/22/2017 Inactive hydrocodone 7.5 mg-a cetaminophen 325 mg tablet RxNorm: 256428 1-2 Tablet(s) PO Q6 a s needed 08/25/2017 08/31/2017 Inactive lisinopril 10 mg-hyd rochlorothiazide 12.5 mg tablet RxNorm: 221439 Tablet(s) TAKE ONE TABLET BY MOUTH ONCE DAILY 07/14/2017 07/08/2018 Active hydrocodone 7.5 mg-a cetaminophen 325 mg tablet RxNorm: 464270 1-2 Tablet(s) PO Q6 a s needed 07/14/2017 08/04/2017 Inactive gabapentin 100 mg ca psule RxNorm: 853193 1 Capsule(s) PO QAM 06/23/2017 12/19/2017 Inactive hydrocodone 7.5 mg-a cetaminophen 325 mg tablet RxNorm: 086512 1-2 Tablet(s) PO Q6 a s needed 05/20/2017 06/10/2017 Inactive Lipitor 20 mg tablet RxNorm: 800090 1 Tablet(s) PO TIW 05/13/2017 05/07/2018 Active escitalopram 10 mg t ablet RxNorm: 324156 1 Tablet(s) PO QPM 05/13/2017 05/07/2018 Active escitalopram 10 mg t ablet RxNorm: 172305 1 Tablet(s) PO QPM 04/16/2017 05/12/2017 Inactive lisinopril 10 mg-hyd rochlorothiazide 12.5 mg tablet RxNorm: 715288 TAKE ONE TABLET BY MOUTH ONCE DAILY 04/15/2017 07/13/2017 Inactive escitalopram 10 mg t ablet RxNorm: 165418 1 Tablet(s) PO QPM 04/09/2017 04/15/2017 Inactive hydrocodone 7.5 mg-a cetaminophen 325 mg tablet RxNorm: 064400 1-2 Tablet(s) PO Q6 a s needed 03/17/2017 04/07/2017 Inactive hydrocodone 7.5 mg-a cetaminophen 325 mg tablet RxNorm: 716670 1-2 Tablet(s) PO Q6 a s needed 12/27/2016 01/17/2017 Inactive gabapentin 100 mg ca psule RxNorm: 910375 1 Capsule(s) PO QAM 12/16/2016 06/13/2017 Inactive prednisone 20 mg tablet RxNorm: 904917 2 Tablet(s) PO daily 12/06/2016 12/05/2016 Inactive prednisone 20 mg tablet RxNorm: 805618 2 Tablet(s) PO daily 12/06/2016 12/15/2016 Inactive Kenalog 40 mg/mL christoph pension for injection RxNorm: 0009106 1 Milliliter(s) Inj 12/05/2016 12/05/2016 In active diclofenac sodium 75 mg tablet,delayed release RxNorm: 146599 1 Tablet(s) PO BID 10/30/2016 10/24/2017 In active hydrocodone 7.5 mg-a cetaminophen 325 mg tablet RxNorm: 140562 1-2 Tablet(s) PO Q6 a s needed 10/23/2016 11/13/2016 Inactive hydrocodone 7.5 mg-a cetaminophen 325 mg tablet RxNorm: 701208 1-2 Tablet(s) PO Q6 a s needed 08/16/2016 09/06/2016 Inactive lisinopril 10 mg-hyd rochlorothiazide 12.5 mg tablet RxNorm: 336036 TAKE ONE TABLET BY MOUTH ONCE DAILY 06/07/2016 04/14/2017 Inactive Lipitor 40 mg tablet RxNorm: 538831 1 Tablet(s) PO TIW 05/31/2016 05/01/2017 Inactive Lipitor 20 mg tablet RxNorm: 733464 1 Tablet(s) PO TIW 05/29/2016 05/30/2016 Inactive hydrocodone 7.5 mg-a cetaminophen 325 mg tablet RxNorm: 248079 1-2 Tablet(s) PO Q6 a s needed 05/23/2016 06/13/2016 Inactive escitalopram 10 mg t ablet RxNorm: 566466 1 Tablet(s) PO QPM st art at 1/2 pill nightly x 1wk then a full pill thereafter 04/17/2016 04/08/2017 Inactive hydrocodone 7.5 mg-a cetaminophen 325 mg tablet RxNorm: 134982 1-2 Tablet(s) PO Q6 a s needed 02/28/2016 03/20/2016 Inactive hydrocodone 7.5 mg-a cetaminophen 325 mg tablet RxNorm: 065533 1-2 Tablet(s) PO Q6 a s needed 12/04/2015 12/25/2015 Inactive diclofenac sodium 75 mg tablet,delayed release RxNorm: 784589 1 Tablet(s) PO BID 10/23/2015 10/16/2016 In active hydrocodone 7.5 mg-a cetaminophen 325 mg tablet RxNorm: 276275 1-2 Tablet(s) PO Q6 a s needed 09/12/2015 12/03/2015 Inactive promethazine 25 mg t ablet RxNorm: 877704 1 Tablet(s) PO Q6 as needed 08/30/2015 No Stop Date Active lisinopril 10 mg-hyd rochlorothiazide 12.5 mg tablet RxNorm: 518400 1 Tablet(s) PO daily 05/09/2015 05/02/2016 Inactive hydrocodone 7.5 mg-a cetaminophen 325 mg tablet RxNorm: 799747 1-2 Tablet(s) PO Q6 a s needed 04/17/2015 09/11/2015 Inactive lisinopril 10 mg-hyd rochlorothiazide 12.5 mg tablet RxNorm: 563865 1 Tablet(s) PO daily 01/31/2015 05/08/2015 Inactive hydrocodone 7.5 mg-a cetaminophen 325 mg tablet RxNorm: 313452 1-2 Tablet(s) PO Q6 a s needed 01/18/2015 04/16/2015 Inactive diclofenac sodium 75 mg tablet,delayed release RxNorm: 991370 1 Tablet(s) PO BID 01/18/2015 10/14/2015 In active Voltaren 1 % topical gel RxNorm: 055029 4 Gram(s) TOP QID chelsie ly to sacroiliac joint 11/03/2014 05/15/2015 In active lisinopril 10 mg-hyd rochlorothiazide 12.5 mg tablet RxNorm: 565304 1 Tablet(s) PO daily 11/03/2014 12/02/2014 Inactive B-12 Plus sublingual RxNorm: 02199 sublingual No Start Date Active amoxicillin 500 mg c apsule RxNorm: 186978 4 Capsule(s) PO as do ctor directed 1 hours before appt No Start Date Active gabapentin 300 mg ca psule RxNorm: 963437 1 Capsule(s) PO QHS No Start Date Active promethazine 25 mg t ablet RxNorm: 353572 1 Tablet(s) PO Q6 as needed No Start Date 08/29/2015 Inactive diclofenac sodium 75 mg tablet,delayed release RxNorm: 484691 1 Tablet(s) PO BID No Start Date 01/17/2015 Inactive hydrocodone 7.5 mg-a cetaminophen 325 mg tablet RxNorm: 571173 1-2 Tablet(s) PO Q6 a s needed No Start Date 01/17/2015 Inactive Crestor 5 mg tablet RxNorm: 661013 1 Tablet(s) PO 3 x week No Start Date 05/28/2016 Inactive Medication Administered Medication Codes Instruc tions Start Date Status Kenalog 40 mg/mL suspension for injection RxNorm: 9613238 1Milliliter 12/05/2016 N o longer Active Immunizations [...] Item Item Code Result Date Comp Metabolic Kfy324 NA 140 mEq/L 01/14/2018 Comp Metabolic Nol603 K 3.8 mEq/L 01/14/2018 Comp Metabolic Jkm122 CL 101 mEq/L 01/14/2018 Comp Metabolic Dmb360 CO2 30.0 mEq/L 01/14/2018 Comp Metabolic Cqc830 AN ION GAP 13 01/14/2018 Comp Metabolic Wdz539 GL UCOSE 89 mg/dL 01/14/2018 Comp Metabolic She535 Cr eat 1.0 mg/dL 01/14/2018 Comp Metabolic Jxq202 eG FR 63 ml/min/1.73m2 01/14 Comp Metabolic Pgb525 BUN 16 mg/dL 01/14/2018 Comp Metabolic Lky654 B/ C Ratio 16.8 Ratio 01/14/2018 Comp Metabolic Pxz822 CA LCIUM 9.2 mg/dL 01/14/2018 Comp Metabolic Pal413 AL K PHOS 88 U/L 01/14/2018 Comp Metabolic Ocd367 T(SGOT) 13 U/L 01/14/2018 Comp Metabolic Qfo417 AL T(SGPT) 9 U/L 01/14/2018 Comp Metabolic Zxs785 BI LI T 0.5 mg/dL 01/14/2018 Comp Metabolic Vao740 AL BUMIN 4.0 g/dL 01/14/2018 Comp Metabolic Uxv301 TP RO 6.5 g/dL 01/14/2018 Comp Metabolic Cov647 GL OB 2.5 g/dL 01/14/2018 Comp Metabolic Hci999 A/ G Ratio 1.6 Ratio 01/14/2018 Comp Metabolic Zpb902 Os mo 280 mOsmo 01/14/2018 Tsh Ord6 [...] 93.3 fl 01/14/2018 Cbc With Differential Ord2 [place]% 8.5 % 01/14/2018 Cbc With Differential Ord2 MCH 31.5 pg 01/14/2018 Cbc With Differential Ord2 MCHC 33.7 pg 01/14/2018 Cbc With Differential Ord2 Eos% 3.1 % 01/14/2018 Cbc With Differential Ord2 PLT 280 K/ul 01/14/2018 Cbc With Differential Ord2 Baso% 0.4 % 01/14/2018 Cbc With Differential Ord2 Neut ABS# 6.10 K/ul 01/14/2018 Cbc With Differential Ord2 RDW 13.1 % 01/14/2018 Cbc With Differential Ord2 Lymph ABS# 3.44 K/ul 01/14/2018 Cbc With Differential Ord2 [place] ABS# 0.9 K/ul 01/14/2018 Cbc With Differential [...] 93.5 fl 09/10/2017 Cbc With Differential Ord2 [place]% 9.2 % 09/10/2017 Cbc With Differential Ord2 [...] 1.82 K/ul 09/10/2017 Cbc With Differential Ord2 [place] ABS# 0.5 K/ul 09/10/2017 Cbc With Differential Ord2 Eos ABS# 0.1 K/ul 09/10/2017 Cbc With Differential Ord2 Baso ABS# 0.0 K/ul 09/10/2017 Tsh Ord6 TSH (3rd IS) 1.22 uIU/mL 09/10/2017 Comp Metabolic Awe799 NA 140 mEq/L 09/10/2017 Comp Metabolic Nim076 K 4.2 mEq/L 09/10/2017 Comp Metabolic Mib952 CL 107 mEq/L 09/10/2017 Comp Metabolic Hcq058 CO2 25.0 mEq/L 09/10/2017 Comp Metabolic Mgf183 AN ION GAP 12 09/10/2017 Comp Metabolic Xbe030 GL UCOSE 84 mg/dL 09/10/2017 Comp Metabolic Thr650 Cr eat 0.7 mg/dL 09/10/2017 Comp Metabolic Xvh278 eG FR 85 ml/min/1.73m2 09/10 Comp Metabolic Ugm899 BUN 11 mg/dL 09/10/2017 Comp Metabolic Dzi377 B/ C Ratio 15.1 Ratio 09/10/2017 Comp Metabolic Ane234 CA LCIUM 9.1 mg/dL 09/10/2017 Comp Metabolic Fdx853 AL K PHOS 61 U/L 09/10/2017 Comp Metabolic Ewl422 T(SGOT) 38 U/L 09/10/2017 Comp Metabolic Uas697 AL T(SGPT) 24 U/L 09/10/2017 Comp Metabolic Akb885 BI LI T 0.5 mg/dL 09/10/2017 Comp Metabolic Abj578 AL BUMIN 4.0 g/dL 09/10/2017 Comp Metabolic Rmf109 TP RO 6.6 g/dL 09/10/2017 Comp Metabolic Zbo174 GL OB 2.6 g/dL 09/10/2017 Comp Metabolic Vcp574 A/ G Ratio 1.6 Ratio 09/10/2017 Comp Metabolic Ugd720 Os mo 278 mOsmo 09/10/2017 Lipid Ord30 CHOL 148 mg/dL 09/10/2017 Lipid Ord30 HDL 41.0 mg/dl 09/10/2017 Lipid Ord30 TRIG 66 mg/dL 09/10/2017 Lipid Ord30 LDL 94 mg/dL 09/10/2017 Lipid Ord30 C/HDL 3.6 Ratio 09/10/2017 Tsh Ord6 hTSH II 1.57 uIU/mL 09/25/2016 Comp Metabolic Nvz462 NA 139 mEq/L 09/25/2016 Comp Metabolic Zdd791 K 4.5 mEq/L 09/25/2016 Comp Metabolic Vau490 CL 102 mEq/L 09/25/2016 Comp Metabolic Qyw120 CO2 29.0 mEq/L 09/25/2016 Comp Metabolic Ach077 AN ION GAP 13 09/25/2016 Comp Metabolic Ffz455 GL UCOSE 84 mg/dL 09/25/2016 Comp Metabolic Crl462 Cr eat 0.9 mg/dL 09/25/2016 Comp Metabolic Din945 eG FR 70 ml/min/1.73m2 09/25 Comp Metabolic Ufv879 BUN 21 mg/dL 09/25/2016 Comp Metabolic Nfo955 B/ C Ratio 24.1 Ratio 09/25/2016 Comp Metabolic Mzu229 CA LCIUM 9.2 mg/dL 09/25/2016 Comp Metabolic Cxw761 AL K PHOS 89 U/L 09/25/2016 Comp Metabolic Gaj084 T(SGOT) 19 U/L 09/25/2016 Comp Metabolic Qsn823 AL T(SGPT) 19 U/L 09/25/2016 Comp Metabolic Qut989 BI LI T 0.5 mg/dL 09/25/2016 Comp Metabolic Qhi535 AL BUMIN 4.1 g/dL 09/25/2016 Comp Metabolic Usy464 TP RO 6.5 g/dL 09/25/2016 Comp Metabolic Ybj641 GL OB 2.4 g/dL 09/25/2016 Comp Metabolic Obq043 A/ G Ratio 1.7 Ratio 09/25/2016 Comp Metabolic Sto703 Os mo 280 mOsmo 09/25/2016 Cbc With [...] 30.4 % 09/25/2016 Cbc With Differential Ord2 [place]% 7.7 % 09/25/2016 Cbc With Differential Ord2 [...] 2.84 K/ul 09/25/2016 Cbc With Differential Ord2 [place] ABS# 0.7 K/ul 09/25/2016 Cbc With Differential [...] Ord30 C/HDL 5.1 Ratio 04/19/2016 Comp Metabolic Gcq738 NA 135 mEq/L 04/19/2016 Comp Metabolic Uyc864 K 4.2 mEq/L 04/19/2016 Comp Metabolic Nzd983 CL 97 mEq/L 04/19/2016 Comp Metabolic Nmy333 CO2 28.0 mEq/L 04/19/2016 Comp Metabolic Vyy695 AN ION GAP 14 04/19/2016 Comp Metabolic Iwl770 GL UCOSE 89 mg/dL 04/19/2016 Comp Metabolic Nxa358 Cr eat 0.8 mg/dL 04/19/2016 Comp Metabolic Cay219 eG FR 77 ml/min/1.73m2 04/19 Comp Metabolic Vfq670 BUN 17 mg/dL 04/19/2016 Comp Metabolic Jmx630 B/ C Ratio 21.3 Ratio 04/19/2016 Comp Metabolic Fhn107 CA LCIUM 9.8 mg/dL 04/19/2016 Comp Metabolic Cpg037 AL K PHOS 89 U/L 04/19/2016 Comp Metabolic Lxq889 T(SGOT) 16 U/L 04/19/2016 Comp Metabolic Arl007 AL T(SGPT) 13 U/L 04/19/2016 Comp Metabolic Evz335 BI LI T 0.4 mg/dL 04/19/2016 Comp Metabolic Dwb556 AL BUMIN 4.5 g/dL 04/19/2016 Comp Metabolic Wxo372 TP RO 7.2 g/dL 04/19/2016 Comp Metabolic Jvf904 GL OB 2.7 g/dL 04/19/2016 Comp Metabolic Dxp433 A/ G Ratio 1.7 Ratio 04/19/2016 Comp Metabolic Pkh819 Os mo 271 mOsmo 04/19/2016 Tsh Ord6 [...] 31.1 % 04/19/2016 Cbc With Differential Ord2 [place]% 6.4 % 04/19/2016 Cbc With Differential Ord2 MCH 30.9 pg 04/19/2016 Cbc With Differential Ord2 Eos% 2.1 % 04/19/2016 Cbc With Differential Ord2 MCHC 33.9 pg 04/19/2016 Cbc With Differential Ord2 PLT 302 K/ul 04/19/2016 Cbc With Differential Ord2 Baso% 0.2 % 04/19/2016 Cbc With Differential Ord2 RDW 13.3 % 04/19/2016 Cbc With Differential Ord2 Neut ABS# 6.64 K/ul 04/19/2016 Cbc With Differential Ord2 Lymph ABS# 3.43 K/ul 04/19/2016 Cbc With Differential Ord2 [place] ABS# 0.7 K/ul 04/19/2016 Cbc With Differential [...] 30.8 pg 07/11/2015 Cbc With Differential Ord2 [place]% 7.8 % 07/11/2015 Cbc With Differential Ord2 [...] 2.75 K/ul 07/11/2015 Cbc With Differential Ord2 [place] ABS# 0.6 K/ul 07/11/2015 Cbc With Differential Ord2 Eos ABS# 0.4 K/ul 07/11/2015 Cbc With Differential Ord2 Baso ABS# 0.1 K/ul 07/11/2015 Cbc With Differential Ord2 New Analyzer Notice Please note new ref ranges s tarting 05-24-2015 due to implemntation of new five part differential hematolgy analyzer. 07/11/2015 Comp Metabolic Bhc174 NA 137 mEq/L 07/11/2015 Comp Metabolic Tdr417 K 4.4 mEq/L 07/11/2015 Comp Metabolic Bss999 CL 100 mEq/L 07/11/2015 Comp Metabolic Qux690 CO2 25.0 mEq/L 07/11/2015 Comp Metabolic Nlb626 AN ION GAP 16 07/11/2015 Comp Metabolic Piu834 GL UCOSE 75 mg/dL 07/11/2015 Comp Metabolic Jhf787 Cr eat 0.8 mg/dL 07/11/2015 Comp Metabolic Fkv881 eG FR 76 ml/min/1.73m2 07/10 Comp Metabolic Yup421 BUN 18 mg/dL 07/11/2015 Comp Metabolic Tlb293 B/ C Ratio 22.2 Ratio 07/11/2015 Comp Metabolic Zrt508 CA LCIUM 9.5 mg/dL 07/11/2015 Comp Metabolic Nkc389 AL K PHOS 92 U/L 07/11/2015 Comp Metabolic Fbl005 T(SGOT) 16 U/L 07/11/2015 Comp Metabolic Hah414 AL T(SGPT) 18 U/L 07/11/2015 Comp Metabolic Xrb640 BI LI T 0.6 mg/dL 07/11/2015 Comp Metabolic Krq269 AL BUMIN 4.3 g/dL 07/11/2015 Comp Metabolic Gbp557 TP RO 6.7 g/dL 07/11/2015 Comp Metabolic Yfq346 GL OB 2.4 g/dL 07/11/2015 Comp Metabolic Veu764 A/ G Ratio 1.7 Ratio 07/11/2015 Comp Metabolic Oar150 Os mo 274 mOsmo 07/11/2015 Lipid Ord30 CHOL 197 mg/dL 07/11/2015 Lipid Ord30 HDL 55.0 mg/dl 07/11/2015 Lipid Ord30 TRIG 126 mg/dL 07/11/2015 Lipid Ord30 LDL 117 mg/dL 07/11/2015 Lipid Ord30 C/HDL 3.6 Ratio 07/11/2015 B12 Jvx105 B12 >1500.00 pg/ml 07/11/2015 Review of Systems [...] Procedure Codes Date DRAIN/INJECT JOINT/B URSA CPT-4: 90937 12/05/2016 TRIAMCINOLONE ACET I [place] NOS CPT-4: J3301 12/05/2016 DESTRUCT PREMALG LESION CPT-4: 03575 10/22/2016 PPPS, SUBSEQ VISIT CPT- 4: G0439 04/19/2016 Vital Signs Date Vital 02/18/2018 Blood Pressure 1: 100/52 Code: 8480-6 BMI: 31.9 Code: 47272-8 Heart Rate 1: 92 bpm Height: 5'3" SpO2: 90% Temperature: 36.6 (C ) / 97.9 (F) Weight: 180 lbs 01/08/2018 Blood Pressure 1: 140/80 Code: 8480-6 BMI: 32.6 Code: 18215-4 Heart Rate 1: 82 bpm Height: 5'3" SpO2: 92% Weight: 184 lbs 09/09/2017 Blood Pressure 1: 118/62 Code: 8480-6 BMI: 32.4 Code: 63795-8 Heart Rate 1: 80 bpm Height: 5'3" SpO2: 94% Weight: 183 lbs 03/25/2017 Blood Pressure 1: 122/68 Code: 8480-6 BMI: 31.2 Code: 84897-7 Heart Rate 1: 91 bpm Height: 5'3" SpO2: 95% Weight: 176 lbs 12/16/2016 Blood Pressure 1: 148/82 Code: 8480-6 Heart Rate 1: 77 bpm Height: 5'3" SpO2: 96% 12/05/2016 Blood Pressure 1: 138/72 Code: 8480-6 Heart Rate 1: 84 bpm Height: 5'3" SpO2: 92% Weight: 10/22/2016 Blood Pressure 1: 136/78 Code: 8480-6 BMI: 30.1 Code: 35556-6 Heart Rate 1: 70 bpm Height: 5'3" SpO2: 95% Weight: 170 lbs 09/25/2016 Blood Pressure 1: 122/72 Code: 8480-6 BMI: 29.8 Code: 24684-5 Heart Rate 1: 67 bpm Height: 5'3" SpO2: 97% Weight: 168 lbs 05/29/2016 Blood Pressure 1: 112/70 Code: 8480-6 BMI: 27.8 Code: 59310-9 Heart Rate 1: 102 bpm Height: 5'3" SpO2: 98% Weight: 157 lbs 04/19/2016 Blood Pressure 1: 128/58 Code: 8480-6 BMI: 28.5 Code: 43139-4 Heart Rate 1: 85 bpm Height: 5'3" SpO2: 98% Waist Measure (cm): 81 cm Weight: 161 lbs 04/17/2016 Blood Pressure 1: 128/82 Code: 8480-6 BMI: 28.5 Code: 17763-1 Heart Rate 1: 85 bpm Height: 5'3" SpO2: 98% Weight: 161 lbs 10/12/2015 Blood Pressure 1: 124/68 Code: 8480-6 BMI: 28.2 Code: 13975-4 Heart Rate 1: 72 bpm Height: 5'3" SpO2: 98% Weight: 159 lbs 07/11/2015 Blood Pressure 1: 128/88 Code: 8480-6 BMI: 28.5 Code: 76853-1 Heart Rate 1: 73 bpm Height: 5'3" SpO2: 93% Weight: 161 lbs 05/16/2015 Blood Pressure 1: 120/82 Code: 8480-6 BMI: 28.3 Code: 95102-2 Heart Rate 1: 82 bpm Height: 5'3" SpO2: 93% Weight: 160 lbs 11/03/2014 Blood Pressure 1: 132/74 Code: 8480-6 BMI: 27.6 Code: 74928-8 Heart Rate 1: 80 bpm Height: 5'3" SpO2: 98% Weight: 156 lbs Functional Status No Functional Status data History of Present Illness Symptom Name Status Resu lt Effective Date Notes cough Location in [facility] 02/18/2018 None cough Quality constant 02/18/2018 None [...] Encounters Encounter Performer Loca tion Codes Date ([id number]) [id number] EST. P ATIENT, LEVEL III Diagnosis: Acute bronchitis due to other specified organisms[ICD10: J20.8] Diagnosis: Cough[ICD10: R05] Tamara Jones MD, [facility] CPT-4: 73442 02/18/2018 ([id number]) 23471 EST. P ATIENT, LEVEL IV Diagnosis: Essential (primary) hypertension[ICD10: I10] Diagnosis: Low back pain[ICD10: M54.5] Diagnosis: Spinal stenosis, lumbosacral region[ICD10: M48.07] Diagnosis: Mixed hyperlipidemia[ICD10: E78.2] Tamara Jones MD, [facility] CPT- 4: 17017 01/08/2018 ([id number]) 85680 EST. P ATIENT, LEVEL IV Diagnosis: Essential (primary) hypertension[ICD10: I10] Diagnosis: Low back pain[ICD10: M54.5] Diagnosis: Spinal stenosis, lumbosacral region[ICD10: M48.07] Tamara Jones MD, [facility] CPT-4: 97585 09/09/2017 ([id number]) 65585 EST. P ATIENT, LEVEL IV Diagnosis: Essential (primary) hypertension[ICD10: I10] Diagnosis: Mixed hyperlipidemia[ICD10: E78.2] Diagnosis: Low back pain[ICD10: M54.5] Diagnosis: Pain in right hip[ICD10: M25.551] Diagnosis: Pain in left hip[ICD10: M25.552] Tamara Jones MD, [facility] CPT-4: 22300 03/25/2017 ([id number]) 68106 EST. P ATIENT, LEVEL III Diagnosis: Low back pain[ICD10: M54.5] Diagnosis: Sciatica, left side[ICD10: M54.32] Elina Jones MD, [facility] CPT-4: 25781 12/16/2016 02649 EST. PATIENT, LEVEL III Diagnosis: Sacroiliitis, not elsewhere classified[ICD10: M46.1] Diagnosis: Sciatica, left side[ICD10: M54.32] Diagnosis: Pain in left hip[ICD10: M25.552] Evelyn Jones MD, [facility] CPT-4: 19634 12/05/2016 ([id number]) 97466 EST. P ATIENT, LEVEL IV Diagnosis: Encounter for screening mammogram for malignant neoplasm of breast[ICD10: Z12.31] Diagnosis: Essential (primary) hypertension[ICD10: I10] Diagnosis: Mixed hyperlipidemia[ICD10: E78.2] Diagnosis: Major depressive disorder, recurrent, mild[ICD10: F33.0] Tamara Jones MD, [facility] CPT-4: 80292 09/25/2016 ([id number]) 06952 EST. P ATIENT, LEVEL IV Diagnosis: Essential (primary) hypertension[ICD10: I10] Diagnosis: Mixed hyperlipidemia[ICD10: E78.2] Diagnosis: Major depressive disorder, recurrent, moderate[ICD10: F33.1] Tamara Jones MD, [facility] CPT-4: 34890 05/29/2016 ([id number]) 68599 EST. P ATIENT, LEVEL IV Diagnosis: Essential (primary) hypertension[ICD10: I10] Diagnosis: Mixed hyperlipidemia[ICD10: E78.2] Diagnosis: Pain in right hip[ICD10: M25.551] Diagnosis: Major depressive disorder, recurrent, mild[ICD10: F33.0] Tamara Jones MD, [facility] CPT-4: 14885 04/17/2016 ([id number]) 38042 EST. P ATIENT, LEVEL IV Diagnosis: Essential (primary) hypertension[ICD10: I10] Diagnosis: Low back pain[ICD10: M54.5] Diagnosis: Mixed hyperlipidemia[ICD10: E78.2] Tamara Jones MD, [facility] CPT- 4: 65739 10/12/2015 ([id number]) 89051 EST. P ATIENT, LEVEL III Diagnosis: Essential (primary) hypertension[ICD10: I10] Diagnosis: Mixed hyperlipidemia[ICD10: E78.2] Diagnosis: Vitamin B12 deficiency anemia, unspecified[ICD10: D51.9] Elina Jones MD, [facility] CPT-4: 91497 07/11/2015 ([id number]) 57662 EST. P ATIENT, LEVEL IV Diagnosis: Essential (primary) hypertension[ICD10: I10] Diagnosis: Low back pain[ICD10: M54.5] Diagnosis: Sciatica, right side[ICD10: M54.31] Elina Jones MD, [facility] CPT-4: 17957 05/16/2015 ([id number]) OFFICE [facility] - LEVEL 4 Diagnosis: ESSENTIAL HYPERTENSION[ICD9: 401.9] Diagnosis: HYPERLIPIDEMIA[ICD9: 272.4] Diagnosis: OSTEOARTH NOS-UNSPEC[ICD9: 715.90] Diagnosis: Sacroiliitis[ICD9: 720.2] Tamara Jones MD, [facility] CPT-4: 97729 11/03/2014 Plan of Care Planned Activity Notes C odes Status Date Appointment: Elina Rivera WPtel: [phone] (15 min) Moderate 02/27/2018 Appointment: Elina Rivera WPtel: [phone] (15 min) Moderate 02/23/2018 Visit Plan: Bronchitis - acute case of bronchitis identified. Pt has been given antibiotics, breathing treatments as appropriate, and pt has been instructed to call if symptoms are not improved, or if symptoms acutely worsen. 02/18/2018 Appointment: Tamara Jones WPtel: [phone] (15 min) Moderate 02/18/2018 Patient Education: Patient Medication Summary Completed 02/18/2018 Appointment: Tamara Jones WPtel: [address] [place], [place] [id number] (15 min) Moderate 02/16/2018 Visit Plan: Hypertension [...] not improving. 01/08/2018 Appointment: Tamara Jones WPtel: [address] [place], [place] [id number] (15 min) Moderate 01/08/2018 Patient Education: Patient [...] lab 09/09/2017 Appointment: Tamara Jones WPtel: [phone] (15 min) Moderate 09/09/2017 Patient Education: Patient Medication Summary Completed 09/09/2017 Care Plan: Referral Order SNOMED-CT : [id number] Pending 09/09/2017 Appointment: Elina Rivera WPtel: [phone] [facility] - Annual Wellness Visit 04/25/2017 Visit Plan: Hypertension - well clary coe [...] treatment/anti-inflammatory prn. 03/25/2017 Appointment: Tamara Jones WPtel: [phone] (15 min) Moderate 03/25/2017 Patient Education: Patient Medication Summary Completed 03/25/2017 Patient Education: Obesity Completed 03/25/2017 Visit Plan: Low back pain-plan to i ncrease gabapentin-use hydrocodone for break through pain-discussed PT-patient to make appt with Dr Morales to discuss further treatment options 12/16/2016 Appointment: Elina Rivera WPtel: [facility] [phone] (15 min) Moderate 12/16/2016 Patient Education: Patient [...] worsen. 12/05/2016 Appointment: Evelyn Orosco WPtel: [phone] [id number] (30 min) Complex 12/05/2016 Patient Education: Patient Medication Summary Completed 12/05/2016 Visit Plan: Wound Instructions - Pt was instructed to keep the wound clean, wash with antibacterial soap, use triple antibiotic ointment, call if redness, pustular drainage, or any other acute concerns. 10/22/2016 Appointment: Elina Rivera WPtel: [phone] [phone] (15 min) Moderate 10/22/2016 Patient Education: Patient [...] SSRI 09/25/2016 Appointment: Tamara Jones WPtel: [phone] [facility] (15 min) Moderate 09/25/2016 Patient Education: Patient Medication Summary Completed 09/25/2016 Patient Education: Obesity Completed 09/25/2016 Care Plan: SCREENINGMAMMOGRAPHYDIGITAL LOINC : 91278-8 Pending 09/25/2016 Visit Plan: Hypertension - well [...] as prescribed. 05/29/2016 Appointment: [id number] (15 min) Moderate 05/29/2016 Patient Education: Patient [...] surrogate. 04/19/2016 Appointment: [phone] [facility] - Annual Wellness Visit 04/19/2016 [...] for SSRI 04/17/2016 Appointment: Tamara Jones WPtel: [phone] [facility] (15 min) Moderate 04/17/2016 Patient Education: Patient [...] to medications. 10/12/2015 Appointment: Tam[facility] Jones [facility]Ptel[id number] (30 min) Complex [...] or if they worsen. 11/03/2014 Appointment: Tamara Jonestel: [id number] [place] ([place] [...] pressure readings at home. fasting labs to [facility] . Wound Instructions - Pt was [...]
--- OUTSIDE RECORDS SUMMARY | 2019-09-24 08:56 | XMS REPORT | CCD ---
Author Author Marjorie Jones Organization Tamara Jones MD, [facility] Address [address] [place] [address] Phone Care Team Providers Care Compliance Lead Name Role Phone PP Unavailable CCM Unavailable Summary Purpose Interface Exchange Insurance Providers Payer name Policy type / Coverage type Covered republican ID Effective Begin Date Effective End Date [employer] Medicare Part B [id number] Unknown Unknown [facility] icare Part B [id number] Unknown Unk nown Family history Mother Diagnosis [...] ntly unemployed 11/03/[address]: 4496597 Quit over 10 years ago 199911/03/2014 Alcohol [...] Date Stop Date Sta s Fill Instructions gabapentin 100 mg ca psule RxNorm: 881063 TAKE 1 CAPSULE BY SCOTT ONCE DAILY IN THE MORNING 12/24/2017 No Stop Date Active hydrocodone 7.5 mg-a cetaminophen 325 mg tablet RxNorm: 096785 1-2 Tablet(s) PO Q6 a s needed 12/01/2017 12/22/2017 Inactive diclofenac sodium 75 mg tablet,delayed release RxNorm: 055951 TAKE ONE TABLET BY MO [facility] TWICE DAILY 11/10/2017 No Stop Date Active hydrocodone 7.5 mg-a cetaminophen 325 mg tablet RxNorm: 596437 1-2 Tablet(s) PO Q6 a s needed 10/17/2017 11/07/2017 Inactive hydrocodone 7.5 mg-a cetaminophen 325 mg tablet RxNorm: 864172 1-2 Tablet(s) PO Q6 a s needed 09/01/2017 09/22/2017 Inactive hydrocodone 7.5 mg-a cetaminophen 325 mg tablet RxNorm: 497560 1-2 Tablet(s) PO Q6 a s needed 08/25/2017 08/31/2017 Inactive lisinopril 10 mg-hyd rochlorothiazide 12.5 mg tablet RxNorm: 157116 Tablet(s) TAKE ONE TABLET BY MOUTH ONCE DAILY 07/14/2017 07/08/2018 Active hydrocodone 7.5 mg-a cetaminophen 325 mg tablet RxNorm: 751012 1-2 Tablet(s) PO Q6 a s needed 07/14/2017 08/04/2017 Inactive gabapentin 100 mg ca psule RxNorm: 887334 1 Capsule(s) PO QAM 06/23/2017 12/19/2017 Inactive hydrocodone 7.5 mg-a cetaminophen 325 mg tablet RxNorm: 681345 1-2 Tablet(s) PO Q6 a s needed 05/20/2017 06/10/2017 Inactive Lipitor 20 mg tablet RxNorm: 591815 1 Tablet(s) PO TIW 05/13/2017 05/07/2018 Active escitalopram 10 mg t ablet RxNorm: 528283 1 Tablet(s) PO QPM 05/13/2017 05/07/2018 Active escitalopram 10 mg t ablet RxNorm: 327716 1 Tablet(s) PO QPM 04/16/2017 05/12/2017 Inactive lisinopril 10 mg-hyd rochlorothiazide 12.5 mg tablet RxNorm: 706994 TAKE ONE TABLET BY MOUTH ONCE DAILY 04/15/2017 07/13/2017 Inactive escitalopram 10 mg t ablet RxNorm: 330816 1 Tablet(s) PO QPM 04/09/2017 04/15/2017 Inactive hydrocodone 7.5 mg-a cetaminophen 325 mg tablet RxNorm: 894203 1-2 Tablet(s) PO Q6 a s needed 03/17/2017 04/07/2017 Inactive hydrocodone 7.5 mg-a cetaminophen 325 mg tablet RxNorm: 637782 1-2 Tablet(s) PO Q6 a s needed 12/27/2016 01/17/2017 Inactive gabapentin 100 mg ca psule RxNorm: 934023 1 Capsule(s) PO QAM 12/16/2016 06/13/2017 Inactive prednisone 20 mg tablet RxNorm: 867299 2 Tablet(s) PO daily 12/06/2016 12/05/2016 Inactive prednisone 20 mg tablet RxNorm: 503032 2 Tablet(s) PO daily 12/06/2016 12/15/2016 Inactive Kenalog 40 mg/mL christoph pension for injection RxNorm: 4097427 1 Milliliter(s) Inj 12/05/2016 12/05/2016 In active diclofenac sodium 75 mg tablet,delayed release RxNorm: 340223 1 Tablet(s) PO BID 10/30/2016 10/24/2017 In active hydrocodone 7.5 mg-a cetaminophen 325 mg tablet RxNorm: 596822 1-2 Tablet(s) PO Q6 a s needed 10/23/2016 11/13/2016 Inactive hydrocodone 7.5 mg-a cetaminophen 325 mg tablet RxNorm: 816394 1-2 Tablet(s) PO Q6 a s needed 08/16/2016 09/06/2016 Inactive lisinopril 10 mg-hyd rochlorothiazide 12.5 mg tablet RxNorm: 247799 TAKE ONE TABLET BY MOUTH ONCE DAILY 06/07/2016 04/14/2017 Inactive Lipitor 40 mg tablet RxNorm: 051316 1 Tablet(s) PO TIW 05/31/2016 05/01/2017 Inactive Lipitor 20 mg tablet RxNorm: 471210 1 Tablet(s) PO TIW 05/29/2016 05/30/2016 Inactive hydrocodone 7.5 mg-a cetaminophen 325 mg tablet RxNorm: 054182 1-2 Tablet(s) PO Q6 a s needed 05/23/2016 06/13/2016 Inactive escitalopram 10 mg t ablet RxNorm: 225770 1 Tablet(s) PO QPM st art at 1/2 pill nightly x 1wk then a full pill thereafter 04/17/2016 04/08/2017 Inactive hydrocodone 7.5 mg-a cetaminophen 325 mg tablet RxNorm: 935665 1-2 Tablet(s) PO Q6 a s needed 02/28/2016 03/20/2016 Inactive hydrocodone 7.5 mg-a cetaminophen 325 mg tablet RxNorm: 577466 1-2 Tablet(s) PO Q6 a s needed 12/04/2015 12/25/2015 Inactive diclofenac sodium 75 mg tablet,delayed release RxNorm: 523918 1 Tablet(s) PO BID 10/23/2015 10/16/2016 In active hydrocodone 7.5 mg-a cetaminophen 325 mg tablet RxNorm: 545884 1-2 Tablet(s) PO Q6 a s needed 09/12/2015 12/03/2015 Inactive promethazine 25 mg t ablet RxNorm: 954789 1 Tablet(s) PO Q6 as needed 08/30/2015 No Stop Date Active lisinopril 10 mg-hyd rochlorothiazide 12.5 mg tablet RxNorm: 624331 1 Tablet(s) PO daily 05/09/2015 05/02/2016 Inactive hydrocodone 7.5 mg-a cetaminophen 325 mg tablet RxNorm: 028602 1-2 Tablet(s) PO Q6 a s needed 04/17/2015 09/11/2015 Inactive lisinopril 10 mg-hyd rochlorothiazide 12.5 mg tablet RxNorm: 339946 1 Tablet(s) PO daily 01/31/2015 05/08/2015 Inactive hydrocodone 7.5 mg-a cetaminophen 325 mg tablet RxNorm: 847352 1-2 Tablet(s) PO Q6 a s needed 01/18/2015 04/16/2015 Inactive diclofenac sodium 75 mg tablet,delayed release RxNorm: 613158 1 Tablet(s) PO BID 01/18/2015 10/14/2015 In active Voltaren 1 % topical gel RxNorm: 260433 4 Gram(s) TOP QID chelsie ly to sacroiliac joint 11/03/2014 05/15/2015 In active lisinopril 10 mg-hyd rochlorothiazide 12.5 mg tablet RxNorm: 659574 1 Tablet(s) PO daily 11/03/2014 12/02/2014 Inactive B-12 Plus sublingual RxNorm: 02354 sublingual No Start Date Active amoxicillin 500 mg c apsule RxNorm: 442935 4 Capsule(s) PO as do ctor directed 1 hours before appt No Start Date Active gabapentin 300 mg ca psule RxNorm: 508646 1 Capsule(s) PO QHS No Start Date Active promethazine 25 mg t ablet RxNorm: 835616 1 Tablet(s) PO Q6 as needed No Start Date 08/29/2015 Inactive diclofenac sodium 75 mg tablet,delayed release RxNorm: 757075 1 Tablet(s) PO BID No Start Date 01/17/2015 Inactive hydrocodone 7.5 mg-a cetaminophen 325 mg tablet RxNorm: 163233 1-2 Tablet(s) PO Q6 a s needed No Start Date 01/17/2015 Inactive Crestor 5 mg tablet RxNorm: 577873 1 Tablet(s) PO 3 x week No Start Date 05/28/2016 Inactive Medication Administered Medication Codes Instruc tions Start Date Status Kenalog 40 mg/mL suspension for injection RxNorm: 5656475 1Milliliter 12/05/2016 N o longer Active Immunizations No Immunization data Assessments Condition Codes Effectiv e Dates Essential (primary) hypertension ICD -10: I10 ICD-9: 401.1 09/09/2017 Spinal stenosis, lumbosacral region ICD-10: M48.07 ICD-9: 724.02 09/09/2017 Low back pain ICD-10: M54.5 ICD-9: 724.2 09/09/2017 Pain in right hip ICD-10: M25.551 ICD-9: 719.45 03/25/2017 Pain in left hip ICD-10: M25.552 ICD-9: 719.45 03/25/2017 Mixed hyperlipidemia ICD-10: E78.2 ICD-9: 272.4 03/25/2017 Sciatica, left side ICD-10: M54.32 ICD-9: [...] Reason For Visit Effective Dates Notes hypertension 09/09/2017 hypertension 03/25/2017 sciatica 12/16/2016 ongo ing sciatica 12/05/2016 skin lesion 10/22/2016 hypertension 09/25/2016 hypertension 05/29/2016 Annual Medicare Wellness Exam 04/19/2016 hypertension 04/17/2016 back pain 10/12/2015 back pain 07/11/2015 back pain 05/16/2015 hypertension 11/03/2014 Results Observation Observation Code Item Item Code Result Date Cbc With Differential Ord2 WBC 5.41 K/ul 09/10/2017 Cbc With Differential Ord2 RBC 4.78 M/ul 09/10/2017 Cbc With Differential Ord2 HGB 14.8 g/dl 09/10/2017 Cbc With Differential Ord2 HCT 44.7 % 09/10/2017 Cbc With Differential Ord2 Neut% 54.4 % 09/10/2017 Cbc With Differential Ord2 Lymph% 33.6 % 09/10/2017 Cbc With Differential Ord2 MCV 93.5 fl 09/10/2017 Cbc With Differential Ord2 Denali% 9.2 % 09/10/2017 Cbc With Differential Ord2 [...] 1.82 K/ul 09/10/2017 Cbc With Differential Ord2 Denali ABS# 0.5 K/ul 09/10/2017 Cbc With Differential Ord2 Eos ABS# 0.1 K/ul 09/10/2017 Cbc With Differential Ord2 Baso ABS# 0.0 K/ul 09/10/2017 Tsh Ord6 TSH (3rd IS) 1.22 uIU/mL 09/10/2017 Comp Metabolic Cnj254 NA 140 mEq/L 09/10/2017 Comp Metabolic Tux278 K 4.2 mEq/L 09/10/2017 Comp Metabolic Oxf586 CL 107 mEq/L 09/10/2017 Comp Metabolic Hwj569 CO2 25.0 mEq/L 09/10/2017 Comp Metabolic Twk503 AN ION GAP 12 09/10/2017 Comp Metabolic Dos686 GL UCOSE 84 mg/dL 09/10/2017 Comp Metabolic Imi890 Cr eat 0.7 mg/dL 09/10/2017 Comp Metabolic Diy362 eG FR 85 ml/min/1.73m2 09/10 Comp Metabolic Gmq643 BUN 11 mg/dL 09/10/2017 Comp Metabolic Olk040 B/ C Ratio 15.1 Ratio 09/10/2017 Comp Metabolic Lcw497 CA LCIUM 9.1 mg/dL 09/10/2017 Comp Metabolic Ivs591 AL K PHOS 61 U/L 09/10/2017 Comp Metabolic Smw646 T(SGOT) 38 U/L 09/10/2017 Comp Metabolic Wlf181 AL T(SGPT) 24 U/L 09/10/2017 Comp Metabolic Ens498 BI LI T 0.5 mg/dL 09/10/2017 Comp Metabolic Jmt657 AL BUMIN 4.0 g/dL 09/10/2017 Comp Metabolic Mce054 TP RO 6.6 g/dL 09/10/2017 Comp Metabolic Ejl758 GL OB 2.6 g/dL 09/10/2017 Comp Metabolic Vgd077 A/ G Ratio 1.6 Ratio 09/10/2017 Comp Metabolic Rfa124 Os mo 278 mOsmo 09/10/2017 Lipid Ord30 CHOL 148 mg/dL 09/10/2017 Lipid Ord30 HDL 41.0 mg/dl 09/10/2017 Lipid Ord30 TRIG 66 mg/dL 09/10/2017 Lipid Ord30 LDL 94 mg/dL 09/10/2017 Lipid Ord30 C/HDL 3.6 Ratio 09/10/2017 Tsh Ord6 hTSH II 1.57 uIU/mL 09/25/2016 Comp Metabolic Ccn287 NA 139 mEq/L 09/25/2016 Comp Metabolic Awq436 K 4.5 mEq/L 09/25/2016 Comp Metabolic Irw013 CL 102 mEq/L 09/25/2016 Comp Metabolic Wxa117 CO2 29.0 mEq/L 09/25/2016 Comp Metabolic Wgm021 AN ION GAP 13 09/25/2016 Comp Metabolic Qiw107 GL UCOSE 84 mg/dL 09/25/2016 Comp Metabolic Ktw638 Cr eat 0.9 mg/dL 09/25/2016 Comp Metabolic Orx268 eG FR 70 ml/min/1.73m2 09/25 Comp Metabolic Rph925 BUN 21 mg/dL 09/25/2016 Comp Metabolic Tyw370 B/ C Ratio 24.1 Ratio 09/25/2016 Comp Metabolic Eez125 CA LCIUM 9.2 mg/dL 09/25/2016 Comp Metabolic Jfo560 AL K PHOS 89 U/L 09/25/2016 Comp Metabolic Ghm917 T(SGOT) 19 U/L 09/25/2016 Comp Metabolic Hlz699 AL T(SGPT) 19 U/L 09/25/2016 Comp Metabolic Mgy862 BI LI T 0.5 mg/dL 09/25/2016 Comp Metabolic Xtz963 AL BUMIN 4.1 g/dL 09/25/2016 Comp Metabolic Njc593 TP RO 6.5 g/dL 09/25/2016 Comp Metabolic Dyt907 GL OB 2.4 g/dL 09/25/2016 Comp Metabolic Vpf303 A/ G Ratio 1.7 Ratio 09/25/2016 Comp Metabolic Wkj342 Os mo 280 mOsmo 09/25/2016 Cbc With [...] 30.4 % 09/25/2016 Cbc With Differential Ord2 Denali% 7.7 % 09/25/2016 Cbc With Differential Ord2 [...] 2.84 K/ul 09/25/2016 Cbc With Differential Ord2 Denali ABS# 0.7 K/ul 09/25/2016 Cbc With Differential [...] Ord30 C/HDL 5.1 Ratio 04/19/2016 Comp Metabolic Xcz015 NA 135 mEq/L 04/19/2016 Comp Metabolic Aet652 K 4.2 mEq/L 04/19/2016 Comp Metabolic Cwz157 CL 97 mEq/L 04/19/2016 Comp Metabolic Zpp848 CO2 28.0 mEq/L 04/19/2016 Comp Metabolic Qab777 AN ION GAP 14 04/19/2016 Comp Metabolic Hij860 GL UCOSE 89 mg/dL 04/19/2016 Comp Metabolic Npy854 Cr eat 0.8 mg/dL 04/19/2016 Comp Metabolic Sdg697 eG FR 77 ml/min/1.73m2 04/19 Comp Metabolic Hlq797 BUN 17 mg/dL 04/19/2016 Comp Metabolic Vhq794 B/ C Ratio 21.3 Ratio 04/19/2016 Comp Metabolic Xoz205 CA LCIUM 9.8 mg/dL 04/19/2016 Comp Metabolic Bza984 AL K PHOS 89 U/L 04/19/2016 Comp Metabolic Rbx773 T(SGOT) 16 U/L 04/19/2016 Comp Metabolic Amj688 AL T(SGPT) 13 U/L 04/19/2016 Comp Metabolic Qis366 BI LI T 0.4 mg/dL 04/19/2016 Comp Metabolic Dja820 AL BUMIN 4.5 g/dL 04/19/2016 Comp Metabolic Skz116 TP RO 7.2 g/dL 04/19/2016 Comp Metabolic Cjl492 GL OB 2.7 g/dL 04/19/2016 Comp Metabolic Vak869 A/ G Ratio 1.7 Ratio 04/19/2016 Comp Metabolic Kuh410 Os mo 271 mOsmo 04/19/2016 Tsh Ord6 [...] 31.1 % 04/19/2016 Cbc With Differential Ord2 Denali% 6.4 % 04/19/2016 Cbc With Differential Ord2 [...] 3.43 K/ul 04/19/2016 Cbc With Differential Ord2 Denali ABS# 0.7 K/ul 04/19/2016 Cbc With Differential [...] 30.8 pg 07/11/2015 Cbc With Differential Ord2 Denali% 7.8 % 07/11/2015 Cbc With Differential Ord2 [...] 2.75 K/ul 07/11/2015 Cbc With Differential Ord2 Denali ABS# 0.6 K/ul 07/11/2015 Cbc With Differential Ord2 Eos ABS# 0.4 K/ul 07/11/2015 Cbc With Differential Ord2 Baso ABS# 0.1 K/ul 07/11/2015 Cbc With Differential Ord2 New Analyzer Notice Please note new ref ranges s tarting 05-24-2015 due to implemntation of new five part differential hematolgy analyzer. 07/11/2015 Comp Metabolic Vfj392 NA 137 mEq/L 07/11/2015 Comp Metabolic Pvd959 K 4.4 mEq/L 07/11/2015 Comp Metabolic Sok729 CL 100 mEq/L 07/11/2015 Comp Metabolic Tji297 CO2 25.0 mEq/L 07/11/2015 Comp Metabolic Vek691 AN ION GAP 16 07/11/2015 Comp Metabolic Zqz426 GL UCOSE 75 mg/dL 07/11/2015 Comp Metabolic Fcv347 Cr eat 0.8 mg/dL 07/11/2015 Comp Metabolic Rzo526 eG FR 76 ml/min/1.73m2 07/10 Comp Metabolic Gli180 BUN 18 mg/dL 07/11/2015 Comp Metabolic Gof590 B/ C Ratio 22.2 Ratio 07/11/2015 Comp Metabolic Kxt500 CA LCIUM 9.5 mg/dL 07/11/2015 Comp Metabolic Zbq836 AL K PHOS 92 U/L 07/11/2015 Comp Metabolic Orn515 T(SGOT) 16 U/L 07/11/2015 Comp Metabolic Dis799 AL T(SGPT) 18 U/L 07/11/2015 Comp Metabolic Rbe492 BI LI T 0.6 mg/dL 07/11/2015 Comp Metabolic Lvc451 AL BUMIN 4.3 g/dL 07/11/2015 Comp Metabolic Qqk845 TP RO 6.7 g/dL 07/11/2015 Comp Metabolic Zyw792 GL OB 2.4 g/dL 07/11/2015 Comp Metabolic Smv758 A/ G Ratio 1.7 Ratio 07/11/2015 Comp Metabolic Nqt239 Os mo 274 mOsmo 07/11/2015 Lipid Ord30 CHOL 197 mg/dL 07/11/2015 Lipid Ord30 HDL 55.0 mg/dl 07/11/2015 Lipid Ord30 TRIG 126 mg/dL 07/11/2015 Lipid Ord30 LDL 117 mg/dL 07/11/2015 Lipid Ord30 C/HDL 3.6 Ratio 07/11/2015 B12 Usq344 B12 >1500.00 pg/ml 07/11/2015 Review of Systems System Result Effective Dates Constitutional No recent illness 09/09/2017 Constitutional No [...] Procedure Codes Date DRAIN/INJECT JOINT/B URSA CPT-4: 85786 12/05/2016 TRIAMCINOLONE ACET I [place] NOS CPT-4: J3301 12/05/2016 DESTRUCT PREMALG LESION CPT-4: 01879 10/22/2016 PPPS, SUBSEQ VISIT CPT- 4: G0439 04/19/2016 Vital Signs Date Vital 09/09/2017 Blood Pressure 1: 118/62 Code: 8480-6 BMI: 32.4 Code: 00295-6 Heart Rate 1: 80 bpm Height: 5'3" SpO2: 94% Weight: 183 lbs 03/25/2017 Blood Pressure 1: 122/68 Code: 8480-6 BMI: 31.2 Code: 41151-1 Heart Rate 1: 91 bpm Height: 5'3" SpO2: 95% Weight: 176 lbs 12/16/2016 Blood Pressure 1: 148/82 Code: 8480-6 Heart Rate 1: 77 bpm Height: 5'3" SpO2: 96% 12/05/2016 Blood Pressure 1: 138/72 Code: 8480-6 Heart Rate 1: 84 bpm Height: 5'3" SpO2: 92% Weight: 10/22/2016 Blood Pressure 1: 136/78 Code: 8480-6 BMI: 30.1 Code: 84383-4 Heart Rate 1: 70 bpm Height: 5'3" SpO2: 95% Weight: 170 lbs 09/25/2016 Blood Pressure 1: 122/72 Code: 8480-6 BMI: 29.8 Code: 95394-0 Heart Rate 1: 67 bpm Height: 5'3" SpO2: 97% Weight: 168 lbs 05/29/2016 Blood Pressure 1: 112/70 Code: 8480-6 BMI: 27.8 Code: 74891-4 Heart Rate 1: 102 bpm Height: 5'3" SpO2: 98% Weight: 157 lbs 04/19/2016 Blood Pressure 1: 128/58 Code: 8480-6 BMI: 28.5 Code: 55567-3 Heart Rate 1: 85 bpm Height: 5'3" SpO2: 98% Waist Measure (cm): 81 cm Weight: 161 lbs 04/17/2016 Blood Pressure 1: 128/82 Code: 8480-6 BMI: 28.5 Code: 18798-4 Heart Rate 1: 85 bpm Height: 5'3" SpO2: 98% Weight: 161 lbs 10/12/2015 Blood Pressure 1: 124/68 Code: 8480-6 BMI: 28.2 Code: 69285-6 Heart Rate 1: 72 bpm Height: 5'3" SpO2: 98% Weight: 159 lbs 07/11/2015 Blood Pressure 1: 128/88 Code: 8480-6 BMI: 28.5 Code: 26953-9 Heart Rate 1: 73 bpm Height: 5'3" SpO2: 93% Weight: 161 lbs 05/16/2015 Blood Pressure 1: 120/82 Code: 8480-6 BMI: 28.3 Code: 82686-0 Heart Rate 1: 82 bpm Height: 5'3" SpO2: 93% Weight: 160 lbs 11/03/2014 Blood Pressure 1: 132/74 Code: 8480-6 BMI: 27.6 Code: 97421-9 Heart Rate 1: 80 bpm Height: 5'3" SpO2: 98% Weight: 156 lbs Functional Status No Functional Status data History of Present Illness Symptom Name Status Resu lt Effective Date Notes hypertension Quality esthela castañeda hypertension 09/09/2017 None [...] Encounters Encounter Performer Loca tion Codes Date ([id number]) [id number] EST. P ATIENT, LEVEL IV Diagnosis: Essential (primary) hypertension[ICD10: I10] Diagnosis: Low back pain[ICD10: M54.5] Diagnosis: Spinal stenosis, lumbosacral region[ICD10: M48.07] Tamara Jones MD, [facility] CPT-4: 09241 09/09/2017 10137 32033 EST. P ATIENT, LEVEL IV Diagnosis: Essential (primary) hypertension[ICD10: I10] Diagnosis: Mixed hyperlipidemia[ICD10: E78.2] Diagnosis: Low back pain[ICD10: M54.5] Diagnosis: Pain in right hip[ICD10: M25.551] Diagnosis: Pain in left hip[ICD10: M25.552] Tamara Jones MD, [facility] CPT-4: 64017 03/25/2017 ([id number] 80193 EST. P ATIENT, LEVEL III Diagnosis: Low back pain[ICD10: M54.5] Diagnosis: Sciatica, left side[ICD10: M54.32] [facility] CPT-4: 30880 12/16/2016 [id number] EST. PATIENT, LEVEL III Diagnosis: Sacroiliitis, not elsewhere classified[ICD10: M46.1] Diagnosis: Sciatica, left side[ICD10: M54.32] Diagnosis: Pain in left hip[ICD10: M25.552] Evelyn Jones MD, [facility] CPT-4: 02596 12/05/2016 ([id number]) 97867 EST. P ATIENT, LEVEL IV Diagnosis: Encounter for screening mammogram for malignant neoplasm of breast[ICD10: Z12.31] Diagnosis: Essential (primary) hypertension[ICD10: I10] Diagnosis: Mixed hyperlipidemia[ICD10: E78.2] Diagnosis: Major depressive disorder, recurrent, mild[ICD10: F33.0] Tamara Jones MD, C CPT-4: 32477 09/25/2016 ([id number]) 86431 EST. P ATIENT, LEVEL IV Diagnosis: Essential (primary) hypertension[ICD10: I10] Diagnosis: Mixed hyperlipidemia[ICD10: E78.2] Diagnosis: Major depressive disorder, recurrent, moderate[ICD10: F33.1] Tamara Jones MD, [facility] CPT-4: 73258 05/29/2016 ([id number]) 15493 EST. P ATIENT, LEVEL IV Diagnosis: Essential (primary) hypertension[ICD10: I10] Diagnosis: Mixed hyperlipidemia[ICD10: E78.2] Diagnosis: Pain in right hip[ICD10: M25.551] Diagnosis: Major depressive disorder, recurrent, mild[ICD10: F33.0] Tamara Jones MD, C CPT-4: 75588 04/17/2016 ([id number]) 99763 EST. P ATIENT, LEVEL IV Diagnosis: Essential (primary) hypertension[ICD10: I10] Diagnosis: Low back pain[ICD10: M54.5] Diagnosis: Mixed hyperlipidemia[ICD10: E78.2] Tamara Jones MD, [facility] CPT- 4: 00818 10/12/2015 ([id number]) 71630 EST. P ATIENT, LEVEL III Diagnosis: Essential (primary) hypertension[ICD10: I10] Diagnosis: Mixed hyperlipidemia[ICD10: E78.2] Diagnosis: Vitamin B12 deficiency anemia, unspecified[ICD10: D51.9] Elina Jones MD, [facility] CPT-4: 99589 07/11/2015 ([id number]) 48812 EST. P ATIENT, LEVEL IV Diagnosis: Essential (primary) hypertension[ICD10: I10] Diagnosis: Low back pain[ICD10: M54.5] Diagnosis: Sciatica, right side[ICD10: M54.31] Elina Jones MD, [facility] CPT-4: 52471 05/16/2015 ([id number]) OFFICE VISI TREG - LEVEL 4 Diagnosis: ESSENTIAL HYPERTENSION[ICD9: 401.9] Diagnosis: HYPERLIPIDEMIA[ICD9: 272.4] Diagnosis: OSTEOARTH NOS-UNSPEC[ICD9: 715.90] Diagnosis: Sacroiliitis[ICD9: 720.2] Tamara Jones MD, [facility] CPT-4: 22608 11/03/2014 Plan of Care Planned Activity Notes C odes Status Date Visit Plan: Spinal stenosis - pt quinn [...] 09/09/2017 Appointment: Tamara Jones WPtel: [phone] (15 min) Moderate 09/09/2017 Patient Education: Patient Medication Summary Completed 09/09/2017 Care Plan: Referral Order SNOMED-CT : [id number] Pending 09/09/2017 Appointment: Elina Rivera WPtel: [phone] [facility] - Annual Wellness Visit 04/25/2017 Visit [...] prn. 03/25/2017 Appointment: Tamara Jones WPtel: [phone] [facility] (15 min) Moderate 03/25/2017 Patient Education: Patient Medication Summary Completed 03/25/2017 Patient Education: Obesity Completed 03/25/2017 Visit Plan: Low back pain-plan to i ncrease gabapentin-use hydrocodone for break through pain-discussed PT-patient to make appt with Dr Morales to discuss further treatment options 12/16/2016 Appointment: Elina Rivera WPtel: [phone] [place] (15 min) Moderate 12/16/2016 Patient Education: [...] they worsen. 12/05/2016 Appointment: Evelyn Orosco WPtel: [facility] [place] (30 min) Complex 12/05/2016 Patient Education: Patient Medication Summary Completed 12/05/2016 Visit Plan: Wound Instructions - Pt was instructed to keep the wound clean, wash with antibacterial soap, use triple antibiotic ointment, call if redness, pustular drainage, or any other acute concerns. 10/22/2016 Appointment: Elina Rivera WPtel: [phone] (15 min) Moderate 10/22/2016 Patient Education: Patient [...] SSRI 09/25/2016 Appointment: Tamara Jones WPtel: [phone] [phone] (15 min) Moderate 09/25/2016 Patient Education: Patient Medication Summary Completed 09/25/2016 Patient Education: Obesity Completed 09/25/2016 Care Plan: SCREENINGMAMMOGRAPHYDIGITAL LOINC : 58406-5 Pending 09/25/2016 Visit Plan: Hypertension - well [...] prescribed. 05/29/2016 Appointment: [facility]el[phone] [place] (15 min) Moderate 05/29/2016 Patient Education: [...] surrogate. 04/19/2016 App[facility]ment: [facility] Rivera [facility]el[phone] [facility] - Annual Wellness Visit 04/19/2016 Patient Education: Patient Medication Summary Completed 04/19/2016 Patient Education: Obesity Completed 04/19/2016 Visit Plan: Hypertension - well con mendozaed [...] SSRI 04/17/2016 Appointment: [facility]Ptel[phone] (15 min) Moderate 04/17/2016 Patient [...] to medications. 10/12/2015 Appointment: Tamara Jones WPtel: [address] [place], [place] [address] (30 min) [facility] 10/12/2015 Patient Education: Patient Medication Summary Completed [...] they worsen. 11/03/2014 Appointment: Tamara Jones WPtel: [facility] [place] ([place] New Patient 11/03/2014 [...] pressure readings at home. fasting [facility] [place] [facility] . Wound Instructions - Pt was [...]
--- OUTSIDE RECORDS SUMMARY | 2019-09-24 08:57 | XMS REPORT | CCD ---
Author Author Marjorie Jones Organization Tamara Jones MD, [facility] Address [address] [place] [address] Phone Care Team Providers Care Bioinformatics Computer Scientist Name Role Phone PP Unavailable CCM Unavailable Summary Purpose Interface Exchange Insurance Providers Payer name Policy type / Coverage type Covered alliance party ID Effective Begin Date Effective End Date [place] [employer] Medicare Part B [id number] Unknown Unknown [facility] icare Part B [id number] Unknown Unk nown Family history Mother Diagnosis [...] ntly unemployed 11/03/[address]: 1389272 Quit over 10 years ago 199911/03/2014 Alcohol [...] ICD-9: 272.4 ICD-10: E78.2 Active 11/02/2014 Unknown Pain in left hip ICD-9: 719.45 [...] hyperlipidemia ICD-9: 272.4 ICD-10: E78.2 11/02/2014 Active Pain in left hip ICD-9: 719.45 [...] Instructions gabapentin 100 mg ca psule RxNorm: 024092 1 Capsule(s) PO QAM 06/23/2017 12/19/2017 Active hydrocodone 7.5 mg-a cetaminophen 325 mg tablet RxNorm: 580384 1-2 Tablet(s) PO Q6 a s needed 05/20/2017 06/10/2017 Inactive Lipitor 20 mg tablet RxNorm: 713140 1 Tablet(s) PO TIW 05/13/2017 05/07/2018 Active escitalopram 10 mg t ablet RxNorm: 255757 1 Tablet(s) PO QPM 05/13/2017 05/07/2018 Active escitalopram 10 mg t ablet RxNorm: 829709 1 Tablet(s) PO QPM 04/16/2017 05/12/2017 Inactive lisinopril 10 mg-hyd rochlorothiazide 12.5 mg tablet RxNorm: 783381 TAKE ONE TABLET BY MOUTH ONCE DAILY 04/15/2017 No Stop Date Active escitalopram 10 mg t ablet RxNorm: 703462 1 Tablet(s) PO QPM 04/09/2017 04/15/2017 Inactive hydrocodone 7.5 mg-a cetaminophen 325 mg tablet RxNorm: 067318 1-2 Tablet(s) PO Q6 a s needed 03/17/2017 04/07/2017 Inactive hydrocodone 7.5 mg-a cetaminophen 325 mg tablet RxNorm: 488170 1-2 Tablet(s) PO Q6 a s needed 12/27/2016 01/17/2017 Inactive gabapentin 100 mg ca psule RxNorm: 530107 1 Capsule(s) PO QAM 12/16/2016 06/13/2017 Inactive prednisone 20 mg tablet RxNorm: 600328 2 Tablet(s) PO daily 12/06/2016 12/05/2016 Inactive prednisone 20 mg tablet RxNorm: 134526 2 Tablet(s) PO daily 12/06/2016 12/15/2016 Inactive Kenalog 40 mg/mL christoph pension for injection RxNorm: 1117526 1 Milliliter(s) Inj 12/05/2016 12/05/2016 In active diclofenac sodium 75 mg tablet,delayed release RxNorm: 977089 1 Tablet(s) PO BID 10/30/2016 10/24/2017 Ac tive hydrocodone 7.5 mg-a cetaminophen 325 mg tablet RxNorm: 796615 1-2 Tablet(s) PO Q6 a s needed 10/23/2016 11/13/2016 Inactive hydrocodone 7.5 mg-a cetaminophen 325 mg tablet RxNorm: 851875 1-2 Tablet(s) PO Q6 a s needed 08/16/2016 09/06/2016 Inactive lisinopril 10 mg-hyd rochlorothiazide 12.5 mg tablet RxNorm: 235974 TAKE ONE TABLET BY MOUTH ONCE DAILY 06/07/2016 04/14/2017 Inactive Lipitor 40 mg tablet RxNorm: 813660 1 Tablet(s) PO TIW 05/31/2016 05/01/2017 Inactive Lipitor 20 mg tablet RxNorm: 046448 1 Tablet(s) PO TIW 05/29/2016 05/30/2016 Inactive hydrocodone 7.5 mg-a cetaminophen 325 mg tablet RxNorm: 753624 1-2 Tablet(s) PO Q6 a s needed 05/23/2016 06/13/2016 Inactive escitalopram 10 mg t ablet RxNorm: 071838 1 Tablet(s) PO QPM st art at 1/2 pill nightly x 1wk then a full pill thereafter 04/17/2016 04/08/2017 Inactive hydrocodone 7.5 mg-a cetaminophen 325 mg tablet RxNorm: 654495 1-2 Tablet(s) PO Q6 a s needed 02/28/2016 03/20/2016 Inactive hydrocodone 7.5 mg-a cetaminophen 325 mg tablet RxNorm: 253942 1-2 Tablet(s) PO Q6 a s needed 12/04/2015 12/25/2015 Inactive diclofenac sodium 75 mg tablet,delayed release RxNorm: 543366 1 Tablet(s) PO BID 10/23/2015 10/16/2016 In active hydrocodone 7.5 mg-a cetaminophen 325 mg tablet RxNorm: 138872 1-2 Tablet(s) PO Q6 a s needed 09/12/2015 12/03/2015 Inactive promethazine 25 mg t ablet RxNorm: 588825 1 Tablet(s) PO Q6 as needed 08/30/2015 No Stop Date Active lisinopril 10 mg-hyd rochlorothiazide 12.5 mg tablet RxNorm: 044677 1 Tablet(s) PO daily 05/09/2015 05/02/2016 Inactive hydrocodone 7.5 mg-a cetaminophen 325 mg tablet RxNorm: 459787 1-2 Tablet(s) PO Q6 a s needed 04/17/2015 09/11/2015 Inactive lisinopril 10 mg-hyd rochlorothiazide 12.5 mg tablet RxNorm: 186450 1 Tablet(s) PO daily 01/31/2015 05/08/2015 Inactive hydrocodone 7.5 mg-a cetaminophen 325 mg tablet RxNorm: 299020 1-2 Tablet(s) PO Q6 a s needed 01/18/2015 04/16/2015 Inactive diclofenac sodium 75 mg tablet,delayed release RxNorm: 509339 1 Tablet(s) PO BID 01/18/2015 10/14/2015 In active Voltaren 1 % topical gel RxNorm: 361610 4 Gram(s) TOP QID chelsie ly to sacroiliac joint 11/03/2014 05/15/2015 In active lisinopril 10 mg-hyd rochlorothiazide 12.5 mg tablet RxNorm: 235535 1 Tablet(s) PO daily 11/03/2014 12/02/2014 Inactive B-12 Plus sublingual RxNorm: 70478 sublingual No Start Date Active amoxicillin 500 mg c apsule RxNorm: 360775 4 Capsule(s) PO as do ctor directed 1 hours before appt No Start Date Active gabapentin 300 mg ca psule RxNorm: 626076 1 Capsule(s) PO QHS No Start Date Active promethazine 25 mg t ablet RxNorm: 518506 1 Tablet(s) PO Q6 as needed No Start Date 08/29/2015 Inactive diclofenac sodium 75 mg tablet,delayed release RxNorm: 412535 1 Tablet(s) PO BID No Start Date 01/17/2015 Inactive hydrocodone 7.5 mg-a cetaminophen 325 mg tablet RxNorm: 278863 1-2 Tablet(s) PO Q6 a s needed No Start Date 01/17/2015 Inactive Crestor 5 mg tablet RxNorm: 911734 1 Tablet(s) PO 3 x week No Start Date 05/28/2016 Inactive Medication Administered Medication Codes Instruc tions Start Date Status Kenalog 40 mg/mL suspension for injection RxNorm: 9812541 1Milliliter 12/05/2016 N o longer Active Immunizations No Immunization data Assessments Condition Codes Effectiv e Dates Pain in right hip ICD-10: M25.551 ICD-9: 719.45 03/25/2017 Pain in left hip ICD-10: M25.552 ICD-9: 719.45 03/25/2017 Essential (primary) hypertension ICD -10: I10 ICD-9: 401.1 03/25/2017 Low back pain ICD-10: M54.5 ICD-9: 724.2 03/25/2017 Mixed hyperlipidemia ICD-10: E78.2 ICD-9: 272.4 [...] Reason For Visit Effective Dates Notes hypertension 03/25/2017 sciatica 12/16/2016 ongo ing sciatica 12/05/2016 skin lesion 10/22/2016 hypertension 09/25/2016 hypertension 05/29/2016 Annual Medicare Wellness Exam 04/19/2016 hypertension 04/17/2016 back pain 10/12/2015 back pain 07/11/2015 back pain 05/16/2015 hypertension 11/03/2014 Results Observation Observation Code Item Item Code Result Date Tsh Ord6 hTSH II 1.57 uIU/mL 09/25/2016 Comp Metabolic Bdq907 NA 139 mEq/L 09/25/2016 Comp Metabolic Jeo959 K 4.5 mEq/L 09/25/2016 Comp Metabolic Ndr368 CL 102 mEq/L 09/25/2016 Comp Metabolic Siw720 CO2 29.0 mEq/L 09/25/2016 Comp Metabolic Zjd256 AN ION GAP 13 09/25/2016 Comp Metabolic Rzk003 GL UCOSE 84 mg/dL 09/25/2016 Comp Metabolic Lax339 Cr eat 0.9 mg/dL 09/25/2016 Comp Metabolic Edw706 eG FR 70 ml/min/1.73m2 09/25 Comp Metabolic Lwy209 BUN 21 mg/dL 09/25/2016 Comp Metabolic Kqz437 B/ C Ratio 24.1 Ratio 09/25/2016 Comp Metabolic Lil107 CA LCIUM 9.2 mg/dL 09/25/2016 Comp Metabolic Bkq410 AL K PHOS 89 U/L 09/25/2016 Comp Metabolic Irh859 T(SGOT) 19 U/L 09/25/2016 Comp Metabolic Ydu759 AL T(SGPT) 19 U/L 09/25/2016 Comp Metabolic Xxu867 BI LI T 0.5 mg/dL 09/25/2016 Comp Metabolic Huj469 AL BUMIN 4.1 g/dL 09/25/2016 Comp Metabolic Jvw008 TP RO 6.5 g/dL 09/25/2016 Comp Metabolic Doi456 GL OB 2.4 g/dL 09/25/2016 Comp Metabolic Nnz822 A/ G Ratio 1.7 Ratio 09/25/2016 Comp Metabolic Evw030 Os mo 280 mOsmo 09/25/2016 Cbc With [...] 32.2 pg 09/25/2016 Cbc With Differential Ord2 Victoria% 7.7 % 09/25/2016 Cbc With Differential Ord2 [...] 2.84 K/ul 09/25/2016 Cbc With Differential Ord2 Victoria ABS# 0.7 K/ul 09/25/2016 Cbc With Differential [...] Ord30 C/HDL 5.1 Ratio 04/19/2016 Comp Metabolic Ong583 NA 135 mEq/L 04/19/2016 Comp Metabolic Bvo942 K 4.2 mEq/L 04/19/2016 Comp Metabolic Ymv723 CL 97 mEq/L 04/19/2016 Comp Metabolic Xbh018 CO2 28.0 mEq/L 04/19/2016 Comp Metabolic Uln044 AN ION GAP 14 04/19/2016 Comp Metabolic Sfs046 GL UCOSE 89 mg/dL 04/19/2016 Comp Metabolic Mbn802 Cr eat 0.8 mg/dL 04/19/2016 Comp Metabolic Bni365 eG FR 77 ml/min/1.73m2 04/19 Comp Metabolic Rwn264 BUN 17 mg/dL 04/19/2016 Comp Metabolic Hnj678 B/ C Ratio 21.3 Ratio 04/19/2016 Comp Metabolic Oyj781 CA LCIUM 9.8 mg/dL 04/19/2016 Comp Metabolic Xmr022 AL K PHOS 89 U/L 04/19/2016 Comp Metabolic Ady721 T(SGOT) 16 U/L 04/19/2016 Comp Metabolic Aqs181 AL T(SGPT) 13 U/L 04/19/2016 Comp Metabolic Ioh343 BI LI T 0.4 mg/dL 04/19/2016 Comp Metabolic Omi396 AL BUMIN 4.5 g/dL 04/19/2016 Comp Metabolic Iyl472 TP RO 7.2 g/dL 04/19/2016 Comp Metabolic Gou233 GL OB 2.7 g/dL 04/19/2016 Comp Metabolic Qnf986 A/ G Ratio 1.7 Ratio 04/19/2016 Comp Metabolic Lnz976 Os mo 271 mOsmo 04/19/2016 Tsh Ord6 hTSH II 1.41 uIU/mL 04/19/2016 Cbc With Differential Ord2 WBC 11.02 K/ul 04/19/2016 Cbc With Differential Ord2 RBC 4.86 M/ul 04/19/2016 Cbc With Differential Ord2 HGB 15.0 g/dl 04/19/2016 Cbc With Differential Ord2 Neut% 60.2 % 04/19/2016 Cbc With Differential Ord2 HCT 44.3 % 04/19/2016 Cbc With Differential Ord2 MCV 91.2 fl 04/19/2016 Cbc With Differential Ord2 Lymph% 31.1 % 04/19/2016 Cbc With Differential Ord2 MCH 30.9 pg 04/19/2016 Cbc With Differential Ord2 Victoria% 6.4 % 04/19/2016 Cbc With Differential Ord2 [...] 3.43 K/ul 04/19/2016 Cbc With Differential Ord2 Victoria ABS# 0.7 K/ul 04/19/2016 Cbc With Differential [...] 92.1 fl 07/11/2015 Cbc With Differential Ord2 Victoria% 7.8 % 07/11/2015 Cbc With Differential Ord2 MCH 30.8 pg 07/11/2015 Cbc With Differential Ord2 Eos% 5.0 % 07/11/2015 Cbc With Differential Ord2 MCHC 33.5 pg 07/11/2015 Cbc With Differential Ord2 Baso% 0.7 % 07/11/2015 Cbc With Differential Ord2 PLT 304 K/ul 07/11/2015 Cbc With Differential Ord2 RDW 13.2 % 07/11/2015 Cbc With Differential Ord2 Neut ABS# 3.68 K/ul 07/11/2015 Cbc With Differential Ord2 Lymph ABS# 2.75 K/ul 07/11/2015 Cbc With Differential Ord2 Victoria ABS# 0.6 K/ul 07/11/2015 Cbc With Differential Ord2 Eos ABS# 0.4 K/ul 07/11/2015 Cbc With Differential Ord2 Baso ABS# 0.1 K/ul 07/11/2015 Cbc With Differential Ord2 New Analyzer Notice Please note new ref ranges s tarting 05-24-2015 due to implemntation of new five part differential hematolgy analyzer. 07/11/2015 Comp Metabolic Maq430 NA 137 mEq/L 07/11/2015 Comp Metabolic Tzu697 K 4.4 mEq/L 07/11/2015 Comp Metabolic Bur299 CL 100 mEq/L 07/11/2015 Comp Metabolic Ejo510 CO2 25.0 mEq/L 07/11/2015 Comp Metabolic Naa370 AN ION GAP 16 07/11/2015 Comp Metabolic Rmp612 GL UCOSE 75 mg/dL 07/11/2015 Comp Metabolic Yxf179 Cr eat 0.8 mg/dL 07/11/2015 Comp Metabolic Hde928 eG FR 76 ml/min/1.73m2 07/10 Comp Metabolic Uxc103 BUN 18 mg/dL 07/11/2015 Comp Metabolic Blg697 B/ C Ratio 22.2 Ratio 07/11/2015 Comp Metabolic Xfl698 CA LCIUM 9.5 mg/dL 07/11/2015 Comp Metabolic Ylc267 AL K PHOS 92 U/L 07/11/2015 Comp Metabolic Xiv682 T(SGOT) 16 U/L 07/11/2015 Comp Metabolic Rpc038 AL T(SGPT) 18 U/L 07/11/2015 Comp Metabolic Yvk066 BI LI T 0.6 mg/dL 07/11/2015 Comp Metabolic Xiv188 AL BUMIN 4.3 g/dL 07/11/2015 Comp Metabolic Klt774 TP RO 6.7 g/dL 07/11/2015 Comp Metabolic Ifv555 GL OB 2.4 g/dL 07/11/2015 Comp Metabolic Dqo457 A/ G Ratio 1.7 Ratio 07/11/2015 Comp Metabolic Xah328 Os mo 274 mOsmo 07/11/2015 Lipid Ord30 CHOL 197 mg/dL 07/11/2015 Lipid Ord30 HDL 55.0 mg/dl 07/11/2015 Lipid Ord30 TRIG 126 mg/dL 07/11/2015 Lipid Ord30 LDL 117 mg/dL 07/11/2015 Lipid Ord30 C/HDL 3.6 Ratio 07/11/2015 B12 Czt533 B12 >1500.00 pg/ml 07/11/2015 Review of Systems System Result Effective Dates Constitutional No recent illness 03/25/2017 Constitutional No [...] Procedure Codes Date DRAIN/INJECT JOINT/B URSA CPT-4: 06676 12/05/2016 TRIAMCINOLONE ACET I [place] NOS CPT-4: J3301 12/05/2016 DESTRUCT PREMALG LESION CPT-4: 31913 10/22/2016 PPPS, SUBSEQ VISIT CPT- 4: G0439 04/19/2016 Vital Signs Date Vital 03/25/2017 Blood Pressure 1: 122/68 Code: 8480-6 BMI: 31.2 Code: 26903-9 Heart Rate 1: 91 bpm Height: 5'3" SpO2: 95% Weight: 176 lbs 12/16/2016 Blood Pressure 1: 148/82 Code: 8480-6 Heart Rate 1: 77 bpm Height: 5'3" SpO2: 96% 12/05/2016 Blood Pressure 1: 138/72 Code: 8480-6 Heart Rate 1: 84 bpm Height: 5'3" SpO2: 92% Weight: 10/22/2016 Blood Pressure 1: 136/78 Code: 8480-6 BMI: 30.1 Code: 00505-7 Heart Rate 1: 70 bpm Height: 5'3" SpO2: 95% Weight: 170 lbs 09/25/2016 Blood Pressure 1: 122/72 Code: 8480-6 BMI: 29.8 Code: 44242-8 Heart Rate 1: 67 bpm Height: 5'3" SpO2: 97% Weight: 168 lbs 05/29/2016 Blood Pressure 1: 112/70 Code: 8480-6 BMI: 27.8 Code: 79061-5 Heart Rate 1: 102 bpm Height: 5'3" SpO2: 98% Weight: 157 lbs 04/19/2016 Blood Pressure 1: 128/58 Code: 8480-6 BMI: 28.5 Code: 88761-1 Heart Rate 1: 85 bpm Height: 5'3" SpO2: 98% Waist Measure (cm): 81 cm Weight: 161 lbs 04/17/2016 Blood Pressure 1: 128/82 Code: 8480-6 BMI: 28.5 Code: 83856-1 Heart Rate 1: 85 bpm Height: 5'3" SpO2: 98% Weight: 161 lbs 10/12/2015 Blood Pressure 1: 124/68 Code: 8480-6 BMI: 28.2 Code: 64168-3 Heart Rate 1: 72 bpm Height: 5'3" SpO2: 98% Weight: 159 lbs 07/11/2015 Blood Pressure 1: 128/88 Code: 8480-6 BMI: 28.5 Code: 96851-9 Heart Rate 1: 73 bpm Height: 5'3" SpO2: 93% Weight: 161 lbs 05/16/2015 Blood Pressure 1: 120/82 Code: 8480-6 BMI: 28.3 Code: 40106-7 Heart Rate 1: 82 bpm Height: 5'3" SpO2: 93% Weight: 160 lbs 11/03/2014 Blood Pressure 1: 132/74 Code: 8480-6 BMI: 27.6 Code: 02381-4 Heart Rate 1: 80 bpm Height: 5'3" SpO2: 98% Weight: 156 lbs Functional Status No Functional Status data History of Present Illness Symptom Name Status Resu lt Effective Date Notes hypertension Quality esthela garry hypertension 03/25/2017 None [...] exercise 04/19/2016 None Annual Medicare Wellness Exam Handleonard ng Stress usually juliann effectively 04/19/2016 None [...] Encounters Encounter Performer Loca tion Codes Date ([id number]) 01128 EST. P ATIENT, LEVEL IV Diagnosis: Essential (primary) hypertension[ICD10: I10] Diagnosis: Mixed hyperlipidemia[ICD10: E78.2] Diagnosis: Low back pain[ICD10: M54.5] Diagnosis: Pain in right hip[ICD10: M25.551] Diagnosis: Pain in left hip[ICD10: M25.552] Tamara Jones MD, [facility] CPT-4: 64997 03/25/2017 ([id number]) 85839 EST. P ATIENT, LEVEL III Diagnosis: Low back pain[ICD10: M54.5] Diagnosis: Sciatica, left side[ICD10: M54.32] Elina Jones MD, [facility] CPT-4: 93703 12/16/2016 60940 EST. PATIENT, LEVEL III Diagnosis: Sacroiliitis, not elsewhere classified[ICD10: M46.1] Diagnosis: Sciatica, left side[ICD10: M54.32] Diagnosis: Pain in left hip[ICD10: M25.552] Evelyn Jones MD, [facility] CPT-4: 94811 12/05/2016 ([id number]) 92088 EST. P ATIENT, LEVEL IV Diagnosis: Encounter for screening mammogram for malignant neoplasm of breast[ICD10: Z12.31] Diagnosis: Essential (primary) hypertension[ICD10: I10] Diagnosis: Mixed hyperlipidemia[ICD10: E78.2] Diagnosis: Major depressive disorder, recurrent, mild[ICD10: F33.0] Tamara Jones MD, [facility] CPT-4: 32498 09/25/2016 ([id number]) 22902 EST. P ATIENT, LEVEL IV Diagnosis: Essential (primary) hypertension[ICD10: I10] Diagnosis: Mixed hyperlipidemia[ICD10: E78.2] Diagnosis: Major depressive disorder, recurrent, moderate[ICD10: F33.1] Tamara Jones MD, [facility] CPT-4: 08483 05/29/2016 ([id number]) 22191 EST. P ATIENT, LEVEL IV Diagnosis: Essential (primary) hypertension[ICD10: I10] Diagnosis: Mixed hyperlipidemia[ICD10: E78.2] Diagnosis: Pain in right hip[ICD10: M25.551] Diagnosis: Major depressive disorder, recurrent, mild[ICD10: F33.0] Tamara Jones MD, [facility] CPT-4: 05982 04/17/2016 ([id number]) 42700 EST. P ATIENT, LEVEL IV Diagnosis: Essential (primary) hypertension[ICD10: I10] Diagnosis: Low back pain[ICD10: M54.5] Diagnosis: Mixed hyperlipidemia[ICD10: E78.2] Tamara Jones MD, [facility] CPT- 4: 44023 10/12/2015 ([id number]) 09977 EST. P ATIENT, LEVEL III Diagnosis: Essential (primary) hypertension[ICD10: I10] Diagnosis: Mixed hyperlipidemia[ICD10: E78.2] Diagnosis: Vitamin B12 deficiency anemia, unspecified[ICD10: D51.9] Elian Jones MD, [facility] CPT-4: 14631 07/11/2015 ([id number]) 77729 EST. P ATIENT, LEVEL IV Diagnosis: Essential (primary) hypertension[ICD10: I10] Diagnosis: Low back pain[ICD10: M54.5] Diagnosis: Sciatica, right side[ICD10: M54.31] Elina Jones MD, [facility] CPT-4: 55078 05/16/2015 ([id number]) OFFICE VISI T, NEW - LEVEL 4 Diagnosis: ESSENTIAL HYPERTENSION[ICD9: 401.9] Diagnosis: HYPERLIPIDEMIA[ICD9: 272.4] Diagnosis: OSTEOARTH NOS-UNSPEC[ICD9: 715.90] Diagnosis: Sacroiliitis[ICD9: 720.2] Tamara Jones MD, [facility] CPT-4: 19265 11/03/2014 Plan of Care Planned Activity Notes C odes Status Date Appointment: Elina Rivera WPtel: [address] [place], [place] [phone] [facility] - Annual Wellness Visit 04/25/2017 Visit [...] prn. 03/25/2017 Appointment: Tamara Jones WPtel: [phone] [facility] (15 min) Moderate 03/25/2017 Patient Education: Patient Medication Summary Completed 03/25/2017 Patient Education: Obesity Completed 03/25/2017 Visit Plan: Low back pain-plan to i ncrease gabapentin-use hydrocodone for break through pain-discussed PT-patient to make appt with Dr Aguilera to discuss further treatment options 12/16/2016 Appointment: Elina Rivera WPtel: [phone] [phone] [place] (15 min) Moderate 12/16/2016 Patient [...] worsen. 12/05/2016 Appointment: Evelyn Orosco WPtel: [phone] [facility] [place] (30 min) Complex 12/05/2016 Patient Education: Patient Medication Summary Completed 12/05/2016 Visit Plan: Wound Instructions - Pt was instructed to keep the wound clean, wash with antibacterial soap, use triple antibiotic ointment, call if redness, pustular drainage, or any other acute concerns. 10/22/2016 Appointment: Elina Rivera WPtel: [phone] [facility] [place] [address] (15 min) Moderate 10/22/2016 Patient Education: Patient [...] SSRI 09/25/2016 Appointment: Tamara Jones WPtel: [phone] [facility] (15 min) Moderate 09/25/2016 Patient Education: Patient Medication Summary Completed 09/25/2016 Patient Education: Obesity Completed 09/25/2016 Care Plan: [employer] : 24070-7 Pending 09/25/2016 Visit Plan: Hypertension - well [...] prescribed. 05/29/2016 [phone] ([facility]) Moderate 05/29/2016 Patient Education: Patient [...] surrogate. 04/19/2016 [facility]ment[phone] [phone] [facility] - Annual Wellness Visit 04/19/2016 Patient Education: Patient Medication Summary Completed 04/19/2016 Patient Education: Obesity Completed 04/19/2016 Visit Plan: Hypertension - well con troerickaed [...] for SSRI 04/17/2016 [phone] [phone] ([facility] min) Moderate 04/17/2016 Patient Education: Patient [...] medications. 10/12/2015 [phone] [facility] ([place] min) Complex 10/12/2015 Patient Education: Patient [...] worsen. 11/03/2014 App[facility]ment: [facility] [phone] [facility] [place] New Patient 11/03/2014 Patient Education: [...]
--- OUTSIDE RECORDS SUMMARY | 2019-09-24 08:58 | XMS REPORT | Continuity of Care Document ---
Author Organization Unknown Address Unknown Phone Unavailable Allergies Active Description Code Type Severity Reaction Onset Reported/Identified Relationship to Patient Clinical Status Yes CODIENE CODIENE Unknown N/A 09/23/2016 Yes No Known Drug Allergies [id number] Drug Allergy Unknown N/A 09/20/2019 Medications There is no data. Problems Date Dx Coded Attending Type Code Diagnosis Diagnosed By 04/10/1203 ANIYAH AGUILERA DO Ot M54.16 RADICULOPATHY, LUMBAR REGION 04/10/1344 ANIYAH AGUILERA DO Ot M54 .5 LOW BACK PAIN 01/29/2011 Ot 455.4 EXT THROMBOS HEMORRHOID 01/29/2011 Ot 562.10 DIV ERTICULOSIS COLON (W/O MENT OF HEMORR 01/29/2011 Ot V12.72 PER BIN HISTORY OF COLONIC POLYPS 01/29/2011 Ot V76.51 SCR EEN MAL NEOP- COLON 05/24/2014 MARIOLA BOLTON DO V06.1 TDAP DX 05/24/2014 MARIOLA BOLTON DO V06.4 MMR DX 05/22/2015 Ot 786.50 05/22/2015 Ot V76.12 05/22/2015 MARIA INES CASTILLO MD Ot V76.12 05/22/2015 JONATHAN LONGO, MARIA INES Lazo Ot 715.35 05/22/2015 MARIA INES CASTILLO MD Ot 721.3 05/22/2015 MARIA INES CASTILLO MD Ot 737.30 06/07/2015 Ot 786.50 06/07/2015 Ot V76.12 06/07/2015 MARIA INES CASTILLO MD Ot V76.12 06/07/2015 MARIA INES CASTILLO MD Ot 715.35 06/07/2015 MARIA INES CASTILLO MD Ot 721.3 06/07/2015 MARIA INES CASTILLO MD Ot 737.30 06/07/2015 POP AHUMADA Ot M54.5 06/13/2015 AHUMADAPOP RESIDENT INTERN Ot M12.88 06/13/2015 BRANDYNPOP RESIDENT INTERN Ot M43.16 06/13/2015 BRANDYNPOP RESIDENT INTERN Ot M48.06 06/13/2015 BRANDYNPOP RESIDENT INTERN Ot M51.26 06/13/2015 BRANDYN POP Lazo RESIDENT INTERN Ot M54.5 06/14/2015 BRANDYN POP Lazo RESIDENT INTERN Ot M12.88 06/14/2015 BRANDYNPOP RESIDENT INTERN Ot M43.16 06/14/2015 BRANDYNPOP RESIDENT INTERN Ot M48.06 06/14/2015 BRANDYNPOP RESIDENT INTERN Ot M51.26 06/22/2015 BRANDYNPOP RESIDENT INTERN Ot M54.5 06/28/2015 BRANDYNPOP RESIDENT INTERN Ot M12.88 06/28/2015 BRANDYN POP Lazo RESIDENT INTERN Ot M43.16 06/28/2015 BRANDYN POP Lazo RESIDENT INTERN Ot M48.06 06/28/2015 BRANDYN POP Lazo RESIDENT INTERN Ot M51.26 07/07/2015 BRANDYN POP Lazo RESIDENT INTERN Ot M12.88 07/07/2015 BRANDYNPOP RESIDENT INTERN Ot M43.16 07/07/2015 BRANDYNPOP RESIDENT INTERN Ot M48.06 07/07/2015 BRANDYNPOP RESIDENT INTERN Ot M51.26 08/23/2015 ANIYAH AGUILERA DO Ot M54.16 RADICULOPATHY, LUMBAR REGION 08/25/2015 ANIYAH AGUILERA DO Ot M54.16 RADICULOPATHY, LUMBAR REGION 04/17/2016 Ot V76.12 OTH SCREEN MAMMO- MALIGN NEOPLASM OF RAUL 04/17/2016 MARIA INES CASTILLO MD Ot V76.12 OTH SCREEN MAMMO-MALIGN NEOPLASM OF RAUL 04/17/2016 MARIA INES CASTILLO MD Ot 715.35 LOC OSTEOARTH NOS-PELVIS 04/17/2016 MARIA INES CASTILLO MD Ot 721.3 LUMBOSACRAL SPONDYLOSIS 04/17/2016 MARIA INES CASTILLO MD Ot 737.30 IDIOPATHIC SCOLIOSIS 04/17/2016 IDALIA AHUMADAKATHY Lazo RESIDENT INTERN Ot M54.5 LOW BACK PAIN 04/17/2016 BRANDYNPOP RESIDENT INTERN Ot M12.88 OTH SPECIFIC ARTHROPATHIES, NEC, OTH SIT 04/17/2016 BRANDYNTERRANCECURTIS Lazo RESIDENT INTERN Ot M43.16 SPONDYLOLISTHESIS, LUMBAR REGION 04/17/2016 BRANDYNTERRANCEIE Violet RESIDENT INTERN Ot M48.06 SPINAL STENOSIS, LUMBAR REGION 04/17/2016 BRANDYNPOP Violet [facility] Ot M51.26 OTHER INTERVERTEBRAL DISC DISPLACEMENT, 04/17/2016 Ot V76.12 OTH SCREEN MAMMO- MALIGN NEOPLASM OF RAUL 04/17/2016 MARIA INES CASTILLO MD Ot V76.12 OTH SCREEN MAMMO-MALIGN NEOPLASM OF RAUL 04/17/2016 JONATHAN LONGO, MARIA INES Lazo Ot 715.35 LOC OSTEOARTH NOS-PELVIS 04/17/2016 MARIA INES CASTILLO MD Ot 721.3 LUMBOSACRAL SPONDYLOSIS 04/17/2016 MARIA INES CASTILLO MD Ot 737.30 IDIOPATHIC SCOLIOSIS 04/17/2016 BRANDYNTERRANCECURTIS Lazo [facility] Ot M54.5 LOW BACK PAIN 04/17/2016 BRANDYNPOP [facility] Ot M12.88 OTH SPECIFIC ARTHROPATHIES, NEC, OTH SIT 04/17/2016 BRANDYNPOP Violet [facility] Ot M43.16 SPONDYLOLISTHESIS, LUMBAR REGION 04/17/2016 BRANDYNPOP Violet RESIDENT INTERN Ot M48.06 SPINAL STENOSIS, LUMBAR REGION 04/17/2016 BRANDYN POP Violet RESIDENT INTERN Ot M51.26 OTHER INTERVERTEBRAL DISC DISPLACEMENT, 04/18/2016 ABEL ARCHULETA MD Ot M25.551 PAIN IN RIGHT HIP 05/09/2016 ABEL ARCHULETA MD Ot M25.551 PAIN IN RIGHT HIP 05/10/2016 TRANG SHEIKH MD Ot M16. 11 UNILATERAL PRIMARY OSTEOARTHRITIS, RIGHT 05/15/2016 TRANG SHEIKH MD Ot M16. 11 UNILATERAL PRIMARY OSTEOARTHRITIS, RIGHT 05/21/2016 ABEL ARCHULETA MD Ot M25.551 PAIN IN RIGHT HIP 08/14/2017 ABEL ARCHULETA MD Ot Z12.31 ENCNTR SCREEN MAMMOGRAM FOR MALIGNANT NE 09/04/2017 ABEL ARCHULETA MD Ot Z12.31 ENCNTR SCREEN MAMMOGRAM FOR MALIGNANT NE 10/22/2017 ALE CANALES ANIYAH Violet Ot M47.816 SPONDYLOSIS W/O MYELOPATHY OR RADICULOPA 10/22/2017 ALE CANALES ANIYAH Violet Ot M48.061 SPINAL STENOSIS, LUMBAR REGION WITHOUT N 10/22/2017 ALE CANALES ANIYAH Violet Ot M51.26 OTHER INTERVERTEBRAL DISC DISPLACEMENT, 10/22/2017 ALE CANALES AINYAH Violet Ot M51.36 OTHER INTERVERTEBRAL DISC DEGENERATION, 10/22/2017 ALE CANALES ANIYAH Violet Ot M99.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 10/29/2017 ALE CANALES ANIYAH Violet Ot M47.816 SPONDYLOSIS W/O MYELOPATHY OR RADICULOPA 10/29/2017 ALE CANALES ANIYAH Violet Ot M48.061 SPINAL STENOSIS, LUMBAR REGION WITHOUT N 10/29/2017 ALE CANALES ANIYAH Violet Ot M51.26 OTHER INTERVERTEBRAL DISC DISPLACEMENT, 10/29/2017 ALE CANALES ANIYAH Violet Ot M51.36 OTHER INTERVERTEBRAL DISC DEGENERATION, 10/29/2017 ALE CANALES ANIYAH Violet Ot M99.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 01/07/2019 POP AHUMADA RESIDENT INTERN Ot M54.5 LOW BACK PAIN 01/07/2019 POP AHUMADA RESIDENT INTERN Ot M12.88 OTH SPECIFIC ARTHROPATHIES, NEC, OTH SIT 01/07/2019 POP AHUMADAP Ot M43.16 SPONDYLOLISTHESIS, LUMBAR REGION 01/07/2019 POP AHUMADAP Ot M48.06 SPINAL STENOSIS, LUMBAR REGION 01/07/2019 POP AHUMADAP Ot M51.26 OTHER INTERVERTEBRAL DISC DISPLACEMENT, 01/07/2019 KATHE LONGO, ABEL Vang Ot M25.551 PAIN IN RIGHT HIP 01/07/2019 ABEL ARCHULETA MD Ot Z12.31 ENCNTR SCREEN MAMMOGRAM FOR MALIGNANT NE 01/07/2019 ALE CANALESANIYAH Ot M47.816 SPONDYLOSIS W/O MYELOPATHY OR RADICULOPA 01/07/2019 AEL CANALESANIYAH Ot M48.061 SPINAL STENOSIS, LUMBAR REGION WITHOUT N 01/07/2019 ANIYAH AGUILERA DO Ot M51.26 OTHER INTERVERTEBRAL DISC DISPLACEMENT, 01/07/2019 ALE CANALES ANIYAH Violet Ot M51.36 OTHER INTERVERTEBRAL DISC DEGENERATION, 01/07/2019 ALE CANALES ANIYAH Violet Ot M99.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 02/04/2019 ALE CANALES ANIYAH Violet Ot M54 .5 LOW BACK PAIN 02/08/2019 ALE CANALES ANIYAH Violet Ot M54 .5 LOW BACK PAIN 02/11/2019 ALE ANIYAH CANALES Ot M54 .5 LOW BACK PAIN 07/09/2019 POP AHUMADAP Ot M54.5 LOW BACK PAIN 07/09/2019 POP AHUMADAP Ot M12.88 OTH SPECIFIC ARTHROPATHIES, NEC, OTH SIT 07/09/2019 POP HAUMADA RESIDENT INTERN Ot M43.16 SPONDYLOLISTHESIS, LUMBAR REGION 07/09/2019 POP AHUMADAP Ot M48.06 SPINAL STENOSIS, LUMBAR REGION 07/09/2019 POP AHUMADAP Ot M51.26 OTHER INTERVERTEBRAL DISC DISPLACEMENT, 07/09/2019 KATHE LONGO, ABEL Vang Ot M25.551 PAIN IN RIGHT HIP 07/09/2019 ABEL ARCHULETA MD Ot Z12.31 ENCNTR SCREEN MAMMOGRAM FOR MALIGNANT NE 07/09/2019 ALE DO ANIYAH Violet Ot M47.816 SPONDYLOSIS W/O MYELOPATHY OR RADICULOPA 07/09/2019 ALE DO ANIYAH Violet Ot M48.061 SPINAL STENOSIS, LUMBAR REGION WITHOUT N 07/09/2019 ALE DO ANIYAH Violet Ot M51.26 OTHER INTERVERTEBRAL DISC DISPLACEMENT, 07/09/2019 ALE ANIYAH CANALES Ot M51.36 OTHER INTERVERTEBRAL DISC DEGENERATION, 07/09/2019 ALE CANALES ANIYAH Violet Ot M99.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 07/09/2019 ABEL ARCHULETA MD Ot Z12.31 ENCNTR SCREEN MAMMOGRAM FOR MALIGNANT NE 07/15/2019 ABEL ARCHULETA MD Ot Z12.31 ENCNTR SCREEN MAMMOGRAM FOR MALIGNANT NE 07/28/2019 MATILDE LONGO, OPHELIA Granados Ot Z01.818 ENCOUNTER FOR OTHER PREPROCEDURAL EXAMIN 08/05/2019 ABEL ARCHULETA MD Ot Z12.31 ENCNTR SCREEN MAMMOGRAM FOR MALIGNANT NE 09/20/2019 OPHELIA CLAYTON MD Ot Z01.818 ENCOUNTER FOR OTHER PREPROCEDURAL EXAMIN 09/20/2019 OPHELIA CLAYTON MD Ot Z01.818 ENCOUNTER FOR OTHER PREPROCEDURAL EXAMIN 09/20/2019 OPHELIA CLAYTON MD Ot Z01.818 ENCOUNTER FOR OTHER PREPROCEDURAL EXAMIN Procedures There is no data. Results Test Result Range Coronavirus SARS-CoV-2 SO 2019 - 0 13:18 Coronavirus Ab [Units/volume] in Serum Negative Negative Encounters ACCT No. Visit Date/Time Discharge Status Pt. Type Provider Facility Loc./Unit Complaint [id number] 05/24/2014 09:30:00 05/24/2014 23:59: 59 CLS Outpatient MARIOLA BOLTON DO [id number] 09/20/2019 08:30:00 020 16:13:00 DIS Outpatient OPHELIA CLAYTON MD [facility] PREOP COLONOSCOPY [id number] 07/30/2019 10:15:00 23:59:59 CLS Preadmit OPHELIA CLAYTON MD [facility] ENDO SCREENING [id number] 07/27/2019 05:38:00 020 23:59:59 CLS Outpatient OPHELIA CLAYTON MD [facility] PREOP COLONOSCOPY [id number] 07/13/2019 07:58:00 23:59:59 CLS Outpatient ABEL ARCHULETA MD [facility] RAD SCREENING [id number] 02/11/2019 13:07:00 019 13:45:00 DIS Outpatient ANIYAH AGUILERA DO [facility] REHAB BACK S/P LAMINECTOMY [id number] 09/17/2018 12:31:00 019 23:59:59 CLS Preadmit ABEL ARCHULETA MD [facility] RAD SCREENING [id number] 10/01/2017 12:33:00 23:59:59 CLS Outpatient ANIYAH AGUILERA DO [facility] RAD BACK PAIN M54.8 [id number] 08/13/2017 08:05:00 018 23:59:59 CLS Outpatient ABEL ARCHULETA MD [facility] RAD SCREENING [id number] 03/27/2017 11:12:00 23:59:59 CLS Preadmit ABEL ARCHULETA MD [facility] RAD SCREENING [id number] 05/10/2016 07:36:00 08:50:00 DIS Outpatient TRANG SHEIKH MD [facility] CARD HIP OSTEOARTHIRITIS [id number] 04/17/2016 12:57:00 23:59:59 CLS Outpatient ABEL ARCHULETA MD [facility] RAD R HIP PAIN [id number] 08/23/2015 11:15:00 10:05:00 DIS Outpatient ANIYAH AGUILERA DO [facility] REHAB BACK PAIN WITH RADICULO BASIM R SIDE [id number] 06/07/2015 08:50:00 23:59:59 CLS Outpatient POP AHUMADA RESIDENT INTERN [facility] RAD BACK PAIN [id number] 05/22/2015 09:12:00 016 23:59:59 CLS Outpatient POP AHUMADA RESIDENT INTERN [facility] RAD LOW BACK PAIN [id number] 04/27/2013 10:24:00 013 23:59:59 CLS Outpatient MARIA INES CASTILLO MD [facility] RAD OA [id number] 10/28/2012 08:17:00 013 23:59:59 CLS Outpatient MARIA INES CASTILLO MD [facility] RAD SCREENING [id number] 11/07/2011 09:45:00 Document Registration [id number] 01/29/2011 07:01:00 Document Registration [id number] 07/06/2010 11:09:00 Document Registration
[2019-09-24] MEDS: MIDAZOLAM 5 MG/5 ML (VERSED) VIAL IV PRN ×3 (09:07→09:19)
--- NOTE | 2019-09-24 10:13 | Pre-Op Note & Conscious Sedat ---
Pre-Operative Progress Note H&P Reviewed The H&P was reviewed, patient examined and no changes noted. Date H&P Reviewed: September 24, 2019 Time H&P Reviewed: 09:00 Conscious Sedation Pre-Proced ASA Score 2 For ASA 3 and 4: Consider anesthesia and medical clearance. Also, for patients with a history of failed moderate sedation consider anesthesia. Airway Lungs Heart ASA score ASA 1: a normal healthy patient ASA 2: a patient with a mild systemic disease (mid diabetes, controlled hypertension, obesity ASA 3: a patient with a severe systemic disease that limits activity (angina, COPD, prior Myocardial infarction) ASA 4: a patient with an incapacitating disease that is a constant threat to life (CHF, renal failure) ASA 5: a moribund patient not expected to survive 24 hrs. (ruptured aneurysm) ASA 6: a declared brain- patient whose organs are being harvested. For emergent operations, add the letter E after the classification Mallampati Classification Grade 2 Sedation Plan Analgesia, Amnesia, Plan communicated to team members, Discussed options with patient/fam, Discussed risks with patient/fam The patient is an appropriate candidate to undergo the planned procedure, sedation, and anesthesia. The patient immediately re-assessed prior to indication. OPHELIA CLAYTON MD September 24, 2019 10:13
--- NOTE | 2019-09-24 18:06 | OPERATIVE REPORT ---
DATE OF SERVICE: COLONOSCOPY SUMMARY INDICATION FOR THE PROCEDURE: Screening colonoscopy. DESCRIPTION OF PROCEDURE: The patient was placed in the left lateral decubitus position. Prior to undergoing colonoscopy, digital rectal evaluation was performed. Anal sphincter tone was normal and the perianal reflexes intact. No abnormalities, no digital inspection of the anal canal or distal rectal vault. The colonoscope was then inserted into the rectum under direct visualization advanced to cecum. The cecum was identified by identification of ileocecal valve and cecal strap. Photographic documentation was obtained. Colyte prep was good. FINDINGS: There was no evidence for internal or external hemorrhoids and the rectum was unremarkable. One hyperplastic appearing polyp was noted in the distal sigmoid colon was biopsied and ablated. Several small sigmoid diverticulum were present. No other sigmoid colonic abnormalities were appreciated. Another diminutive 3 mm polyp was noted in the descending colon. It was ablated as well and submitted for histopathology. The splenic flexure, transverse colon, hepatic flexure, ascending colon and cecum were unremarkable. ASSESSMENT: Two diminutive polyps were removed today, one from the distal sigmoid colon and the other one from the distal descending colon. As long as there are no surprise on histopathology report considering this patient's comorbidities, would not advocate future screening colonoscopy. I thank you for the referral of this pleasant lady. Job ID: [id number] DocumentID: [id number] Dictated Date: 09/24/2019 12:07:32 Mat Sewer Date: 09/24/2019 18:05:36 Dictated By: OPHELIA CLAYTON MD
== END 2019-09-24 10:55 | disposition home or self-care (01) ==
LOC: ENDO 07:59
PROVIDERS: ATTEND Internal Medicine
DX: Z12.11 Encounter for screening for malignant neoplasm of colon (principal); D12.4 Benign neoplasm of descending colon; K63.5 Polyp of colon; K57.30 Diverticulosis of large intestine without perforation or abscess without bleeding

== ENCOUNTER 2020-03-17 08:25 | Outpatient (RCR) | payer MEDICARE ==
[~2020-03-17 08:25] MED LIST changes: +HYDR-3817 PO; -HYDR-4342 PO
== END 2020-05-15 10:15 | disposition home or self-care (01) ==
PROVIDERS: ATTEND Nurse Practitioner Family
DX: M54.2 Cervicalgia (principal); M54.6 Pain in thoracic spine; M25.512 Pain in left shoulder; M25.511 Pain in right shoulder; I10 Essential (primary) hypertension; Z20.828 Contact with and (suspected) exposure to other viral communicable diseases

== ENCOUNTER → 2020-07-17 | Outpatient (CLI) | payer MEDICARE ==
[~2020-07-17] MED LIST changes: +ESCI20TA39 PO; -ESCI20TA45 PO
[2020-07-17 12:57] LABS: BASOPHILS % (AUTO) 1 % (0-10); EOSINOPHILS # (AUTO) 0.2 10^3/uL (0.0-0.3); EOSINOPHILS % (AUTO) 2 % (0-10); HEMATOCRIT 46 % (35-52); LYMPHOCYTES # (AUTO) 2.9 10^3/uL (1.0-4.0); LYMPHOCYTES % (AUTO) 38 % (12-44); MEAN CORPUSCULAR HEMOGLOBIN 31 pg (25-34); MEAN CORPUSCULAR HGB CONC 33 g/dL (32-36); MEAN CORPUSCULAR VOLUME 94 fL (80-99); MEAN PLATELET VOLUME 10.6 fL (9.0-12.2); MONOCYTES # (AUTO) 0.5 10^3/uL (0.0-1.0); MONOCYTES % (AUTO) 6 % (0-12); NEUTROPHILS # (AUTO) 4.1 10^3/uL (1.8-7.8); NEUTROPHILS % (AUTO) 53 % (42-75); PLATELET COUNT 252 10^3/uL (130-400); WHITE BLOOD COUNT 7.6 10^3/uL (4.3-11.0)
[2020-07-17 13:18] LABS: ALANINE AMINOTRANSFERASE 38 U/L (0-55); ALKALINE PHOSPHATASE 152 U/L (40-136); BILIRUBIN,TOTAL 0.3 MG/DL (0.1-1.0); BUN/CREATININE RATIO 13; CALCIUM 9.1 MG/DL (8.5-10.1); CARBON DIOXIDE 29 MMOL/L (21-32); CHLORIDE 100 MMOL/L (98-107); CREATININE SERUM 0.89 MG/DL (0.60-1.30); GFR ESTIMATED > 60; GLUCOSE 97 MG/DL (70-105); SODIUM 139 MMOL/L (135-145)
--- NOTE | 2020-07-17 13:35 | Diagnostic Imaging Report ---
Indication: Dyspnea and hypoxia PA and lateral views of the chest are obtained COMPARISON: No previous study is available for comparison at this time. FINDINGS: Heart size and pulmonary vasculature are within normal limits, and the lungs are clear, bilaterally. IMPRESSION: Unremarkable chest. Dictated by: Dictated on workstation # [id number]
== END ==
LOC: CARD 12:41
PROVIDERS: ATTEND Family Medicine
DX: R06.00 Dyspnea, unspecified (principal); R09.02 Hypoxemia; R68.84 Jaw pain
CPT/HCPCS: 36415; 71046; 80053; 84484; 85025; 85379; 93005

== ENCOUNTER → 2020-07-19 | Outpatient (CLI) | payer MEDICARE ==
--- NOTE | 2020-07-19 12:05 | Diagnostic Imaging Report ---
PROCEDURE: CT chest without contrast. TECHNIQUE: Multiple contiguous axial images were obtained through the chest without the use of intravenous contrast. Auto Exposure Controls were utilized during the CT exam to meet ALARA standards for radiation dose reduction. INDICATION: Dyspnea. Shortness of breath. Current smoker. COMPARISON: Chest radiographs performed on 07/29/2020. FINDINGS: Absence of intravenous contrast decreases sensitivity for detection of lymphadenopathy and vascular pathology. TRACHEA AND MAIN BRONCHI: Patent without evidence of tracheal or endobronchial lesion. LUNGS AND PLEURA: There is a 3 mm subpleural nodule in the right lung apex (image 14 series 3). There is a 4 mm pulmonary nodule in the anterior aspect of the right upper lobe near the apex (image 16 series 3). There is a 4 mm subpleural nodule in the right upper lobe anteromedially adjacent to the brachiocephalic vein (image 36 series 3). There is a 4 mm andrew-fissural nodule along the proximal minor fissure, which likely represents a benign intrapulmonary lymph node (image 57 series 3). There is a 4 mm subpleural nodule in the right middle lobe anteriorly (image 90 series 3). Mild bandlike consolidation in both lower lobes near the lung bases likely reflects scarring/atelectasis. The lungs are otherwise clear. No pleural effusion or pneumothorax. MEDIASTINUM AND SANDRA: Visualized thyroid gland is unremarkable. No mediastinal or hilar lymphadenopathy. Esophagus is nondistended. HEART AND VESSELS: Heart is normal in size. No pericardial effusion. There is mild atherosclerotic calcification of the aortic arch and the coronary arteries. Thoracic aorta is nonaneurysmal. DIAPHRAGM AND UPPER ABDOMEN: The patient is status post cholecystectomy. There is a subcentimeter focus of low-attenuation in the medial left hepatic lobe (image 99 series 2). The diaphragm and visualized upper abdomen are otherwise unremarkable. CHEST WALL: Unremarkable. BONES: Multilevel degenerative changes involve the spine. No acute osseous abnormality. Bone anchor in the right humeral head reflects prior rotator cuff surgery. IMPRESSION: No acute cardiopulmonary process. There are multiple small pulmonary nodules, measuring up to 4 mm. If low risk for malignancy, no additional follow-up necessary. If high risk, optional follow-up CT could be considered at 12 months, per Guidelines for Management of Incidental Pulmonary Nodules Detected on CT Images: From the Fleischner Society 2017 (Radiology 2017;284:228-243). There is a subcentimeter focus of low-attenuation in the left hepatic lobe. This is favored to represent benign etiology such as a cyst, however, is technically indeterminate. If the patient is at low-risk for hepatic malignancy, no additional imaging follow-up is required. If the patient is at high-risk for hepatic malignancy, follow-up hepatic protocol CT/MRI is recommended in 3-6 months, per [employer] Incidental Findings Committee white paper management recommendations (JACR 2017;14:0197-9028). Dictated by: Dictated on workstation # [id number]
== END ==
LOC: RAD 07:45
PROVIDERS: ATTEND Family Medicine
DX: J44.9 Chronic obstructive pulmonary disease, unspecified (principal); R91.8 Other nonspecific abnormal finding of lung field; F17.200 Nicotine dependence, unspecified, uncomplicated
CPT/HCPCS: 71250

== ENCOUNTER → 2020-08-03 | Outpatient (CLI) | payer MEDICARE ==
[~2020-08-03] MED LIST changes: +RT-ALBUTEROL SULF 2.5 MG/3 ML PRE-MIX VIAL INH ONE
== END ==
LOC: RT 10:30
PROVIDERS: ATTEND Internal Medicine Cardiovascular Disease
DX: I11.9 Hypertensive heart disease without heart failure (principal)
CPT/HCPCS: 93306; 94060; 94726; 94729

== ENCOUNTER → 2020-08-16 | Outpatient (CLI) | payer MEDICARE ==
[~2020-08-16] VITALS: Ht 160 cm; Wt 72.0 kg
[~2020-08-16] MED LIST changes: +CATHETER FLUSH 10 ML SYR IV PRN; +REGADENOSON 0.4 MG/5 ML SYR (LEXISCAN) IV ONE; -RT-ALBUTEROL SULF 2.5 MG/3 ML PRE-MIX VIAL INH ONE
[2020-08-16 13:07] VITALS: BP 123/64
--- NOTE | 2020-08-16 17:21 | Cardiology Stress Test Report ---
Stress Test Report Date of Procedure/Referring: Date of Procedure: Aug 16, 2020 PCP Brittni Kohli MD Admitting Physician Tamara Jones MD Indications: HTN Baseline Heart Rate: 53 Baseline Blood Pressure: Blood Pressure Systolic: 123 Blood Pressure Diastolic: 64 Baseline Vitals Vital Signs Date Time Temp Pulse Resp B/P (MAP) Pulse Ox O2 Delivery O2 Flow Rate FiO2 08/16/20 13:07 53 123/64 (83) 95 Baseline EKG: Baseline EKG: NSR Summary After explaining the procedure to the patient, she signed a consent and then brought to the stress nuclear laboratory. Patient received 0.4 mg Lexiscan for stress test, ECG, heart rate and blood pressure were monitored continuously. Resting and stress dose of radio tracer were injected, imaging was acquired and reviewed in short axis, horizontal long axis and vertical long axis views. TID: 1.02 SSS: 5 SDS: 2 EF: 59 1. Patient tolerated Lexiscan well 2. Breast attenuation with mild ischemia involving the apex and anterior apical area 3. Patient developed transient episode of ventricular bigeminy at the end of the test 4. Normal left ventricular size, EF 59% BRITTNI KOHLI MD Aug 16, 2020 17:21
== END ==
LOC: CARD 12:15
PROVIDERS: ATTEND Internal Medicine Cardiovascular Disease
DX: I10 Essential (primary) hypertension (principal); R07.9 Chest pain, unspecified
CPT/HCPCS: 78452; 93017; A9502

== ENCOUNTER 2020-08-23 14:00 | Day surgery (SDC) | payer MEDICARE ==
[~2020-08-23] VITALS: Ht 160.2 cm; Wt 80.7 kg
[2020-08-23 12:20] VITALS: BP 116/77
--- NOTE | 2020-08-23 12:23 | Diagnostic Imaging Report ---
INDICATION: chest pain COMPARISON: 07/17/2020. FINDINGS: Single frontal view of the chest demonstrates normal heart size and pulmonary vascularity. The lungs are well aerated and clear. No large pleural effusion or pneumothorax is seen. The visualized osseous structures show no acute abnormalities. IMPRESSION: 1. No acute cardiopulmonary process. Dictated by: Dictated on workstation # [id number]
[2020-08-23 12:30] LABS: HEMOGLOBIN 14.7 g/dL (11.5-16.0); MEAN PLATELET VOLUME 10.4 fL (9.0-12.2); WHITE BLOOD COUNT 9.2 10^3/uL (4.3-11.0)
[2020-08-23 12:39] LABS: ALBUMIN 4.1 GM/DL (3.2-4.5); CHLORIDE 101 MMOL/L (98-107)
[2020-08-23 12:40] LABS: SODIUM 138 MMOL/L (135-145)
[2020-08-23 12:41] LABS: CALCIUM 9.3 MG/DL (8.5-10.1)
[2020-08-23 12:42] LABS: GLUCOSE 89 MG/DL (70-105); TOTAL PROTEIN 7.3 GM/DL (6.4-8.2)
[2020-08-23 12:43] LABS: CARBON DIOXIDE 25 MMOL/L (21-32); INR 0.9 (0.8-1.4); PROTHROMBIN TIME PATIENT 12.6 SEC (12.2-14.7)
[2020-08-23 12:44] LABS: BILIRUBIN,TOTAL 0.4 MG/DL (0.1-1.0)
[2020-08-23 12:45] LABS: ALKALINE PHOSPHATASE 109 U/L (40-136); GFR ESTIMATED > 60
[2020-08-23 12:46] LABS: BUN/CREATININE RATIO 10
[2020-08-23 12:48] LABS: ALANINE AMINOTRANSFERASE 10 U/L (0-55)
[~2020-08-23 14:00] MED LIST changes: +BUSP5TAB59 PO; -CATHETER FLUSH 10 ML SYR IV PRN; +ERGO50006 PO; +HEParin (CATH LAB) 2,000 ML IV ONE; +HEParin 1000 UNIT/ML (10ML VIAL) FOR BOLUS ONE; +LIDOCAINE 1% INJ 20 ML 20 ML VIAL ONE; +MIDAZOLAM 5 MG/5 ML (VERSED) VIAL ONE; +NITRO DRIP 25000 MCG/D5W 250 ML IV ONE; +NS IV 1000 ML 1,000 ML IV SCH; +NS IV 1000 ML 1,000 ML ONE; -REGADENOSON 0.4 MG/5 ML SYR (LEXISCAN) IV ONE; +VERAPAMIL 5 MG/2 ML (CALAN) VIAL IV ONE; +fentaNYL INJ 100 MCG/2 ML AMP ONE
--- NOTE | 2020-08-23 14:02 | Cardiac Procedure Note-CS/ASA ---
Pre-Procedure Note Pre-Op Procedure Note H&P Reviewed The H&P was reviewed, patient examined and no changes noted. Date H&P Reviewed: Aug 23, 2020 Time H&P Reviewed: 13:00 Conscious Sedation Pre-Proced Time 13:00 ASA Score 3 For ASA 3 and 4: Consider anesthesia and medical clearance. Also, for patients with a history of failed moderate sedation consider anesthesia. Airway Lungs Heart ASA score ASA 1: a normal healthy patient ASA 2: a patient with a mild systemic disease (mid diabetes, controlled hypertension, obesity x ASA 3: a patient with a severe systemic disease that limits activity (angina, COPD, prior Myocardial infarction) ASA 4: a patient with an incapacitating disease that is a constant threat to life (CHF, renal failure) ASA 5: a moribund patient not expected to survive 24 hrs. (ruptured aneurysm) ASA 6: a declared brain- patient whose organs are being harvested. For emergent operations, add the letter E after the classification Mallampati Classification Grade 3 Sedation Plan Analgesia, Amnesia, Plan communicated to team members, Discussed options with patient/fam, Discussed risks with patient/fam The patient is an appropriate candidate to undergo the planned procedure, sedation, and anesthesia. The patient immediately re-assessed prior to indication. BRITTNI DAVID MD Aug 23, 2020 14:02
--- NOTE | 2020-08-23 14:05 | Discharge Inst-Post CATH ---
Discharge Inst-CATH/EP Problems Reviewed?: Yes Post Cardiac Cath/EP D/C Inst Follow Up/Plan Appointment with Dr Kohli's office in 2-4 weeks <b>CARDIAC CATH/EP PROCEDURE DISCHARGE INSTRUCTIONS</b> ACTIVITY * Go Home directly and rest. * Limit activity of the leg (or wrist if it was used) for 7 days including aerobics, swimming, jogging, bicycling, etc. * Restrict stair-climbing for 7 days if possible, if not, climb up with your non-cath leg, then bring together on the same step. * Avoid lifting, pushing, pulling or excessive movement of the affected extremity for 7 days. * Customary sexual activity may be resumed after 2 days-use caution not to use a position that strains or causes pain to the affected extremity. * No driving for 24 hours. * NO SMOKING. * Avoid straining for bowel movements for 7 days. * Gentle walking on level ground is allowed. * Returning to work will depend on the type of procedure and the results. Your doctor will discuss this with you. CALL YOUR DOCTOR FOR ANY OF THE FOLLOWING: *If bleeding from the puncture site occurs- Apply gentle pressure to site with clean cloth and call your doctor or EMS. * If a knot or lump forms under the skin, increases in size, or causes pain. * If bruising appears to be worsening or moving further down your leg instead of disappearing. * Temperature above 101 F. CARE OF YOUR GROIN INCISION; * Bruising or purple discoloration of the skin near the puncture site is common. * You may shower only, no bathtub bathing for 5 days. Be careful to avoid slipping as your leg may feel stiff. * If a closure device was used on your femoral artery, please see the attached guide regarding care of the device and your leg. * Leave dressing on FOR 24 hours. CARE OF YOUR WRIST INCISION; * Bruising or purple discoloration of the skin near the puncture site is common. * You may shower. * DO NOT submerge wrist. * Leave dressing on FOR 24 hours. BRITTNI KOHLI MD Aug 23, 2020 14:05
--- NOTE | 2020-08-23 14:09 | Cardiac Cath Report ---
Cardiac Cath Report Physician (s)/Hydrodynamicist (s) Physician BRITTNI DAVID MD Pre-Procedure Diagnosis Pre-Procedure Diagnosis: Coronary artery disease Post-Procedure Note Procedure Start Date: Aug 23, 2020 Name of Procedure: Coronary angiogram Aortic arch angiogram Findings/Procedure Note PROCEDURE NOTE: 65-year-old lady with recurrent chest pain, had an abnormal stress test, scheduled for cardiac catheterization possible PTCA. After explaining the procedure to the patient, all pros and cons were explained, all questions were answered. The patient signed the consent and then she was placed on the cardiac catheterization laboratory. Groin was prepped SL fashion local anesthesia was used. Sheath placed in the right radial artery. [place] catheter was used advanced to the right and left coronary system, angiogram was done, pulled to the aortic arch and aortic arch angiogram was done due to the fact that patient was hypotensive to evaluate for any dissection. At the end of the procedure the sheath was removed. Vascular band was used FINDINGS: ANATOMY: Left Main is free of obstructive disease Left Anterior Descending is slightly tortuous with no obstructive disease Left Circumflex has no significant obstructive disease Right Coronary Artery has no significant obstructive disease Aorta evaluation done with aortic arch angiogram showing normal aortic arch, no dissection or aneurysm, normal origin of the innominate artery, left carotid and left subclavian arteries CONCLUSION: 1. Mild coronary artery disease nonobstructive disease 2. Normal aortic arch and great vessels of the neck DISCUSSION AND RECOMMENDATION: Medical therapy is recommended no intervention is needed Anesthesia Type: Conscious Sedation Estimated blood loss (mL): 10 ml Contrast Amount: 39 ml Total Radiation Dose: 99 mGy Post-Procedure Diagnosis Post-operative diagnosis: Chest pain Coronary artery disease Hyperlipidemia Hypertension BRITTNI DAVID MD Aug 23, 2020 14:09
[2020-08-23 14:15] VITALS: BP 104/61
[2020-08-23] MEDS ORDERED: NS IV 1000 ML 1,000 ML IV SCH (14:15)
[2020-08-23 15:28] VITALS: BP 106/59
[2020-08-23 16:00] VITALS: BP 106/58
== END 2020-08-23 17:50 | disposition home or self-care (01) ==
LOC: CATH 17:50
PROVIDERS: ATTEND Internal Medicine Cardiovascular Disease
DX: I25.10 Atherosclerotic heart disease of native coronary artery without angina pectoris (principal); I10 Essential (primary) hypertension; M16.10 Unilateral primary osteoarthritis, unspecified hip; J44.9 Chronic obstructive pulmonary disease, unspecified; E78.2 Mixed hyperlipidemia; I65.23 Occlusion and stenosis of bilateral carotid arteries; F17.210 Nicotine dependence, cigarettes, uncomplicated; Z90.49 Acquired absence of other specified parts of digestive tract; Z96.653 Presence of artificial knee joint, bilateral; Z79.899 Other long term (current) drug therapy; Z79.891 Long term (current) use of opiate analgesic; Z83.3 Family history of diabetes mellitus
CPT/HCPCS: 36221; 71045; 80053; 85027; 85610; 85730; 87081; 93458; C1894; 36415

== ENCOUNTER → 2021-01-16 | Outpatient (CLI) | payer MEDICARE ==
[~2021-01-16] MED LIST changes: +ERGO1250 PO; -ERGO50006 PO; -HEParin (CATH LAB) 2,000 ML IV ONE; -HEParin 1000 UNIT/ML (10ML VIAL) FOR BOLUS ONE; -LIDOCAINE 1% INJ 20 ML 20 ML VIAL ONE; -MIDAZOLAM 5 MG/5 ML (VERSED) VIAL ONE; -NITRO DRIP 25000 MCG/D5W 250 ML IV ONE; -NS IV 1000 ML 1,000 ML IV SCH; -NS IV 1000 ML 1,000 ML ONE; -VERAPAMIL 5 MG/2 ML (CALAN) VIAL IV ONE; -fentaNYL INJ 100 MCG/2 ML AMP ONE
--- NOTE | 2021-01-16 11:04 | Diagnostic Imaging Report ---
PROCEDURE: CT chest and abdomen without contrast. TECHNIQUE: Axial images were obtained from the thoracic inlet through the iliac crest without the administration of intravenous contrast. Auto Exposure Controls were utilized during the CT exam to meet ALARA standards for radiation dose reduction. INDICATION: Pulmonary nodule, liver lesion. COMPARISON: 07/19/2020. FINDINGS: No significant adenopathy within the chest. No aneurysmal dilatation of the thoracic aorta. The heart is within normal limits in size. No significant pericardial effusion. No pleural effusion. No pneumothorax. The 0.4 cm pulmonary nodule within the medial aspect of the right upper lobe is stable. The 0.3 cm right upper lobe pulmonary nodule is also stable. The 0.5 cm pleural-based right middle lobe pulmonary nodule is stable. No new suspicious pulmonary nodule. Post surgical changes within the right shoulder. Scattered osseous degenerative changes without acute osseous abnormality. Cholecystectomy. A sub-5 mm hypodensity within the left hepatic lobe is suggested although not as well seen as on the prior examination. The unenhanced liver is otherwise unremarkable. The unenhanced spleen is unremarkable. The adrenal glands are unremarkable. The pancreas is unremarkable. The kidneys are unremarkable. Advanced vascular calcifications within the abdominal aorta and its branch vessels without aneurysmal dilatation of the abdominal aorta. No bowel obstruction or pneumatosis. Diverticulum associated with the 3rd portion of the duodenum without adjacent inflammatory stranding. No significant adenopathy, free air, or free fluid within the abdomen. [place] right curvature of the lumbar spine. Transitional lumbosacral vertebral body. Post surgical changes within the lumbar spine. Scattered osseous degenerative changes without acute osseous abnormality. IMPRESSION: Stable sub-zero 0.5 cm pulmonary nodules. If patient is at high risk for lung cancer, a followup CT of the chest in 12 months is recommended. No new pulmonary nodule. Subcentimeter hypodensity within the left hepatic lobe is not optimally visualized although appears relatively stable from the prior examination. This remains indeterminate. If patient is at high risk for hepatic malignancy, a followup CT of the abdomen in 12 months would be recommended. Transitional lumbosacral vertebral body with post surgical changes and degenerative changes associated with the spine. Dictated by: Dictated on workstation # [id number]
== END ==
LOC: RAD 10:15
PROVIDERS: ATTEND Family Medicine
DX: K76.9 Liver disease, unspecified (principal); M47.817 Spondylosis without myelopathy or radiculopathy, lumbosacral region; R91.8 Other nonspecific abnormal finding of lung field
CPT/HCPCS: 71250; 74150

== ENCOUNTER 2021-02-05 14:51 | Emergency (ER) | payer MEDICARE ==
[~2021-02-05] VITALS: Ht 160 cm; Wt 72.5 kg
--- NOTE | 2021-02-05 15:20 | ED General ---
General Chief Complaint: Dizziness/Syncope Stated Complaint: LOW BP,DIZZINESS,LOW O2 Source of Information: Patient Exam Limitations: No Limitations History of Present Illness Date Seen by Provider: Feb 05, 2021 Time Seen by Provider: 15:08 Initial Comments This is a well-appearing 65-year-old female who presented to the ER with her s cari for concerns of low oxygen saturation, dizziness, and low blood pressure at home. States she was sitting on couch and when she attempted to stand she became very dizzy. States this has been occurring more frequently over the past few months. States she takes Lisinopril/HCTZ. Sister reports history of early dementia and helps care for her. At home her BP at 80's/40's and reports her oxygen was 88%. Placed her spouses oxygen on her and drove her to ER. She has no physical complaints at this time. Allergies and Home Medications Allergies Coded Allergies: No Known Drug Allergies (Verified , 08/23/20) Patient Home Medication List Home Medication List Reviewed: Yes Atorvastatin Calcium (Atorvastatin Calcium) 20 Mg Tablet, 20 MG PO MoWeFr, (Reported) Entered as Reported by: SHAKIRA TRUJILLO on 09/20/19 1103 Buspirone HCl (Buspirone HCl) 5 Mg Tablet, 5 MG PO, (Reported) Entered as Reported by: CARLOS EDUARDO BYERS on 08/23/20 1235 Diclofenac Sodium (Diclofenac Sodium) 75 Mg Tablet.dr, 75 MG PO BID, (Reported) Entered as Reported by: SHAKIRA TRUJILLO on 09/20/19 1103 Donepezil HCl (Donepezil HCl) 10 Mg Tablet, 10 MG PO HS, (Reported) Entered as Reported by: SHAKIRA TRUJILLO on 09/20/19 1103 Ergocalciferol (Vitamin D2) (Vitamin D2) 1,250 Mcg Capsule, 1,250 MCG PO DAILY, (Reported) Entered as Reported by: CARLOS EDUARDO BYERS on 08/23/20 1235 Escitalopram Oxalate (Escitalopram Oxalate) 20 Mg Tablet, 20 MG PO DAILY, (Reported) Entered as Reported by: SHAKIRA TRUJILLO on 09/20/19 1103 Gabapentin (Gabapentin) 100 Mg Capsule, 100 MG PO HS, (Reported) Entered as Reported by: SHAKIRA TRUJILLO on 09/20/19 1103 Hydrocodone/Acetaminophen (Hydrocodone-Acetamin 7.5-325) 1 Each Tablet, 1 EACH PO QID PRN for PAIN-MODERATE (5-7), (Reported) Entered as Reported by: SHAKIRA TRUJILLO on 09/20/191102 Lisinopril/Hydrochlorothiazide (Lisinopril-Hctz 10-12.5 mg Tab) 1 Each Tablet, 1 EACH PO DAILY, (Reported) Entered as Reported by: SHAKIRA TRUJILLO on 09/20/191102 Memantine HCl (Memantine HCl) 10 Mg Tablet, 10 MG PO BID, (Reported) Entered as Reported by: SHAKIRA TRUJILLO on 09/20/191102 Review of Systems Review of Systems Constitutional: no symptoms reported EENTM: no symptoms reported Respiratory: no symptoms reported Cardiovascular: no symptoms reported Gastrointestinal: no symptoms reported Genitourinary: no symptoms reported Musculoskeletal: no symptoms reported Skin: no symptoms reported Psychiatric/Neurological: Other (forgetful ) Hematologic/Lymphatic: No Symptoms Reported Immunological/Allergic: no symptoms reported Past Ltzndte-Eurihx-Incgro Hx Immunizations Up To Date Tetanus Booster (TDap): More than 5yrs Seasonal Allergies Seasonal Allergies: No Past Medical History Surgeries: Yes (back sx, bilat knee scopes, bilat shoulder sx, left TKR, ) Gallbladder, Hysterectomy, Joint Replacement, Oophorectomy Respiratory: No Cardiac: Yes Hypertension 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 0.0oz. [id number]; 31.44 BMI Method: General Appearance: No Apparent Distress, WD/WN Eyes: Bilateral Eye Normal Inspection, Bilateral Eye PERRL, Bilateral Eye EOMI HEENT: PERRL/EOMI, Normal ENT Inspection, Pharynx Normal; No Scleral Icterus (L), No Scleral Icterus (R) Neck: Normal Inspection, Supple Respiratory: Lungs Clear, Normal Breath Sounds, No Accessory Muscle Use, No Respiratory Distress Cardiovascular: Regular Rate, Rhythm, Normal Peripheral Pulses Gastrointestinal: Normal Bowel Sounds, No Organomegaly, No Pulsatile Mass, Non Tender, Soft Back: Normal Inspection, No Vertebral Tenderness Extremity: Normal Capillary Refill, Normal Inspection Neurologic/Psychiatric: Alert; No Oriented x3 (person and place ); No Motor/Sensory Deficits, Normal Mood/Affect, market risk specialist II-XII Norm as Tested Skin: Normal Color, Warm/Dry Progress/Results/Core Measures Suspected Sepsis SIRS Temperature: Pulse: Respiratory Rate: Laboratory Tests 02/05/21 15:15: White Blood Count 10.7 Blood Pressure / Mean: Laboratory Tests 02/05/21 15:15: Creatinine 1.47H, INR Comment 0.9, Platelet Count 257, Total Bilirubin 0.5 Results/Orders Lab Results Laboratory Tests Test 02/05/21 15:05 02/05/21 15:15 02/05/21 15:25 02/05/21 16:19 Range/Units Urine Color YELLOW Urine Clarity CLEAR Urine pH 6.0 5-9 Urine Specific [place] 1.025 H 1.016-1.022 Urine Protein TRACE H NEGATIVE Urine Glucose (UA) NEGATIVE NEGATIVE Urine Ketones NEGATIVE NEGATIVE Urine Nitrite NEGATIVE NEGATIVE Urine Bilirubin NEGATIVE NEGATIVE Urine Urobilinogen 1.0 < = 1.0 MG/DL Urine Leukocyte Esterase TRACE H NEGATIVE Urine RBC (Auto) NEGATIVE NEGATIVE Urine RBC NONE /HPF Urine WBC 0-2 /HPF Urine Squamous Epithelial Cells 5-10 /HPF Urine Renal Epithelial Cells NONE /HPF Urine Crystals NONE /LPF Urine Bacteria NEGATIVE /HPF Urine Casts PRESENT /LPF Urine Hyaline Casts 2-5 H /LPF Urine Mucus NEGATIVE /LPF Urine Culture Indicated NO Urine Opiates Screen POSITIVE H NEGATIVE Urine Oxycodone Screen POSITIVE H NEGATIVE Urine Methadone Screen NEGATIVE NEGATIVE Urine Propoxyphene Screen NEGATIVE NEGATIVE Urine Barbiturates Screen NEGATIVE NEGATIVE Ur Tricyclic Antidepressants Screen NEGATIVE NEGATIVE Urine Phencyclidine Screen NEGATIVE NEGATIVE Urine Amphetamines Screen NEGATIVE NEGATIVE Urine Methamphetamines Screen NEGATIVE NEGATIVE Urine Benzodiazepines Screen NEGATIVE NEGATIVE Urine Cocaine Screen NEGATIVE NEGATIVE Urine Cannabinoids Screen NEGATIVE NEGATIVE White Blood Count 10.7 4.3-11.0 10^3/uL Red Blood Count 4.34 3.80-5.11 10^6/uL Hemoglobin 13.6 11.5-16.0 g/dL Hematocrit 41 35-52 % Mean Corpuscular Volume 93 80-99 fL Mean Corpuscular Hemoglobin 31 25-34 pg Mean Corpuscular Hemoglobin Concent 34 32-36 g/dL Red Cell Distribution Width 13.2 10.0-14.5 % Platelet Count 257 130-400 10^3/uL Mean Platelet Volume 10.6 9.0-12.2 fL Immature Granulocyte % (Auto) 0 % Neutrophils (%) (Auto) 53 42-75 % Lymphocytes (%) (Auto) 37 12-44 % Monocytes (%) (Auto) 7 0-12 % Eosinophils (%) (Auto) 2 0-10 % Basophils (%) (Auto) 0 0-10 % Neutrophils # (Auto) 5.7 1.8-7.8 10^3/uL Lymphocytes # (Auto) 4.0 1.0-4.0 10^3/uL Monocytes # (Auto) 0.8 0.0-1.0 10^3/uL Eosinophils # (Auto) 0.2 0.0-0.3 10^3/uL Basophils # (Auto) 0.0 0.0-0.1 10^3/uL Immature Granulocyte # (Auto) 0.0 0.0-0.1 10^3/uL Prothrombin Time 13.0 12.2-14.7 SEC INR Comment 0.9 0.8-1.4 Activated Partial Thromboplast Time 24 24-35 SEC D-Dimer 0.71 H 0.00-0.49 UG/ML Sodium Level 139 135-145 MMOL/L Potassium Level 3.5 L 3.6-5.0 MMOL/L Chloride Level 101 98-107 MMOL/L Carbon Dioxide Level 25 21-32 MMOL/L Anion Gap 13 5-14 MMOL/L Blood Urea Nitrogen 15 7-18 MG/DL Creatinine 1.47 H 0.60-1.30 MG/DL Estimat Glomerular Filtration Rate 35 BUN/Creatinine Ratio 10 Glucose Level 110 H 70-105 MG/DL Calcium Level 8.9 8.5-10.1 MG/DL Corrected Calcium 9.0 8.5-10.1 MG/DL Magnesium Level 1.9 1.6-2.4 MG/DL Total Bilirubin 0.5 0.1-1.0 MG/DL Aspartate Amino Transf (AST/SGOT) 222 H 5-34 U/L Alanine Aminotransferase (ALT/SGPT) 125 H 0-55 U/L Alkaline Phosphatase 182 H 40-136 U/L Myoglobin 90.7 10.0-92.0 NG/ML Troponin I < 0.028 <0.028 NG/ML B-Type Natriuretic Peptide 38.4 <100.0 PG/ML Total Protein 6.8 6.4-8.2 GM/DL Albumin 3.9 3.2-4.5 GM/DL SARS-CoV-2 RNA (RT-PCR) Not Detected Not Detecte Ammonia 28 11-32 UMOL/L C-Reactive Protein High Sensitivity 0.61 H 0.00-0.50 MG/DL Serum Alcohol < 10 <10 MG/DL Micro Results Microbiology 02/05/21 Urine Culture - Final, Complete 3 or more isolates My Orders Orders - PEG BUNCH APRN Ns Iv 1000 Ml (Sodium Chloride 0.9%) (02/05/21 15:30) Cbc With Automated Diff (02/05/21 15:16) Magnesium (02/05/21 15:16) Chest 1 View, Ap/Pa Only (02/05/21 15:16) Ekg Tracing (02/05/21 15:16) Comprehensive Metabolic Panel (02/05/21 15:16) Myoglobin Serum (02/05/21 15:16) Protime With Inr (02/05/21 15:16) Partial Thromboplastin Time (02/05/21 15:16) O2 (02/05/21 15:16) Monitor-Rhythm Ecg Trace Only (02/05/21 15:16) Ed Iv/Invasive Line Start (02/05/21 15:16) BNP (02/05/21 15:16) Fibrin Degradation Products (02/05/21 15:16) Troponin I (02/05/21 15:16) Urinalysis (02/05/21 15:16) Urine Culture (02/05/21 15:16) Covid 19 Inhouse Test (02/05/21 15:18) Orthostatic Vital Signs (Adult (02/05/21 15:43) Ct Abdomen/Pelvis Wo (02/05/21 16:08) Ns Iv 1000 Ml (Sodium Chloride 0.9%) (02/05/21 16:15) Ammonia (02/05/21 16:09) Ns Iv 1000 Ml (Sodium Chloride 0.9%) (02/05/21 16:15) Hs C Reactive Protein (02/05/21 16:28) Alcohol (02/05/21 16:39) Drug Screen Stat (Urine) (02/05/21 16:39) Medications Given in ED Vital Signs/I&O 02/05/21 02/05/21 02/05/21 15:05 15:38 17:53 Temp 37.1 Pulse 71 66 60 61 68 Resp 18 18 B/P (MAP) 96/61 (73) 89/64 109/64 102/51 100/58 Pulse Ox 98 98 O2 Delivery Room Air Room Air Capillary Refill : Progress Note : Progress Note Discussed labs with Dr. Jones her PCP. States she will follow her OP to monitor kidney and liver function. Patient is stable with BP 109/64 after two liters of NS. Reviewed discharge POC with patient and sister, they are agreeable with plan. ECG Initial ECG Impression Date: Feb 05, 2021 Initial ECG Impression Time: 15:18 Initial ECG Rate: 59 Initial ECG Rhythm: S.Lokesh Initial ECG Intervals: Normal Initial ECG Impression: Normal Initial ECG Comparisson: Unchanged Diagnostic Imaging Diagonstic Imaging: Xray Plain Films/CT/US/NM/MRI: chest Comments [facility] [place], [place] NAME: CATHRYN ROMERO [facility] REC#: [id number] PT STATUS: REG ER : 1955 PHYSICIAN: PEG BUNCH ALLERGY AND IMMUNOLOGY SPECIALIST ADMIT DATE: 02/05/21/ER Draft Date of Exam:02/05/21 CHEST 1 VIEW, AP/PA ONLY INDICATION: Chest pain. COMPARISON: 08/23/2020. FINDINGS: The lungs are clear. There is no failure, effusion, or pneumothorax. IMPRESSION: No acute appearing abnormality. Dictated on workstation # [id number] Dict: 02/05/21 1601 Trans: 02/05/21 1611 [id number] Interpreted by: YOLANDA THOMPSON Electronically signed by: Reviewed: Reviewed by Me Departure Impression Primary Impression: Dizziness Additional Impressions: Elevated liver enzymes Hypotension Disposition: 01 HOME, SELF-CARE Condition: Improved Departure-Patient Inst. Decision time for Depature: 17:45 Referrals: ABEL JONES MD (PCP/Family) Primary Care Physician Patient Instructions: Dizziness, Adult ED, Low Blood Pressure Add. Discharge Instructions: Plan: 1. Follow up with Dr. Jones. Please call for appointment. 2. Drink plenty of fluids. Hold your Lisinopril/HCTZ if the top number of your blood pressure is less than 120. 3. Return for any new, concerning, or worsening symptoms. All discharge instructions reviewed with patient and/or family. Voiced u nderstanding. PEG BUNCH ALLERGY AND IMMUNOLOGY SPECIALIST Feb 05, 2021 15:20
[2021-02-05] MEDS ORDERED: NS IV 1000 ML 1,000 ML IV ONE ×2 (15:30→16:15)
[2021-02-05 15:37] LABS: BILIRUBIN,URINE NEGATIVE (NEGATIVE); CLARITY,URINE CLEAR; COLOR,URINE YELLOW; GLUCOSE, URINE (UA) NEGATIVE (NEGATIVE); KETONES,URINE NEGATIVE (NEGATIVE); LEUKOCYTE ESTERASE ,URINE TRACE (NEGATIVE); NITRITE,URINE NEGATIVE (NEGATIVE); PROTEIN,URINE TRACE (NEGATIVE)
[2021-02-05 15:43] LABS: BACTERIA,URINE NEGATIVE /HPF; WBC,URINE 0-2 /HPF
[2021-02-05 15:44] LABS: BASOPHILS % (AUTO) 0 % (0-10); EOSINOPHILS # (AUTO) 0.2 10^3/uL (0.0-0.3); EOSINOPHILS % (AUTO) 2 % (0-10); HEMATOCRIT 41 % (35-52); HEMOGLOBIN 13.6 g/dL (11.5-16.0); LYMPHOCYTES % (AUTO) 37 % (12-44); MEAN CORPUSCULAR HEMOGLOBIN 31 pg (25-34); MEAN CORPUSCULAR HGB CONC 34 g/dL (32-36); MEAN CORPUSCULAR VOLUME 93 fL (80-99); MEAN PLATELET VOLUME 10.6 fL (9.0-12.2); MONOCYTES # (AUTO) 0.8 10^3/uL (0.0-1.0); MONOCYTES % (AUTO) 7 % (0-12); NEUTROPHILS # (AUTO) 5.7 10^3/uL (1.8-7.8); NEUTROPHILS % (AUTO) 53 % (42-75); PLATELET COUNT 257 10^3/uL (130-400); WHITE BLOOD COUNT 10.7 10^3/uL (4.3-11.0)
[2021-02-05 15:52] LABS: ALBUMIN 3.9 GM/DL (3.2-4.5)
[2021-02-05 15:53] LABS: POTASSIUM 3.5 MMOL/L (3.6-5.0)
[2021-02-05 15:54] LABS: CALCIUM 8.9 MG/DL (8.5-10.1)
[2021-02-05 15:55] LABS: TOTAL PROTEIN 6.8 GM/DL (6.4-8.2)
[2021-02-05 15:57] LABS: BILIRUBIN,TOTAL 0.5 MG/DL (0.1-1.0)
[2021-02-05 15:59] LABS: CREATININE SERUM 1.47 MG/DL (0.60-1.30)
[2021-02-05 16:01] LABS: MAGNESIUM 1.9 MG/DL (1.6-2.4)
[2021-02-05 16:06] LABS: INR 0.9 (0.8-1.4)
--- NOTE | 2021-02-05 16:12 | Diagnostic Imaging Report ---
INDICATION: Chest pain. COMPARISON: 08/23/2020. FINDINGS: The lungs are clear. There is no failure, effusion, or pneumothorax. IMPRESSION: No acute appearing abnormality. Dictated by: Dictated on workstation # [id number]
[2021-02-05] MEDS ORDERED: NS IV 1000 ML 1,000 ML ONE (16:15)
[2021-02-05 17:01] LABS: AMPHETAMINE SCREEN, URINE NEGATIVE (NEGATIVE); BARBITURATE SCREEN URINE NEGATIVE (NEGATIVE); BENZODIAZEPINES SCREEN URINE NEGATIVE (NEGATIVE); CANNABINOID SCREEN, URINE NEGATIVE (NEGATIVE); COCAINE SCREEN URINE NEGATIVE (NEGATIVE); METHADONE STAT NEGATIVE (NEGATIVE); METHAMPHETAMINE SCREEN URINE S NEGATIVE (NEGATIVE); OPIATE SCREEN URINE POSITIVE (NEGATIVE); OXYCODONE STAT POSITIVE (NEGATIVE); PROPOXYPHENE STAT NEGATIVE (NEGATIVE); TRICYCLIC ANTIDEPRESSANTS SCRE NEGATIVE (NEGATIVE)
--- NOTE | 2021-02-05 17:11 | Diagnostic Imaging Report ---
PROCEDURE: CT abdomen and pelvis without contrast. TECHNIQUE: Multiple contiguous axial images were obtained through the abdomen and pelvis without the use of intravenous contrast. Auto Exposure Controls were utilized during the CT exam to meet ALARA standards for radiation dose reduction. INDICATION: Lower abdominal pain. COMPARISON: 01/16/2021. FINDINGS: Lung bases are clear. The gallbladder is surgically absent. The solid organs, vascular structures, and bowel are stable. There is no free air or free fluid. There are few diverticula of the sigmoid colon without diverticulitis. Fibroid uterus is present. The urinary bladder is normal. The visualized appendix is grossly normal. Osseous structures are age appropriate. IMPRESSION: 1. Minimal diverticulosis of the sigmoid colon without diverticulitis. 2. Normal appendix. 3. No inflammatory process, free air, or free fluid. 4. Small fibroid uterus. Dictated by: Dictated on workstation # [id number]
[2021-02-05 17:53] VITALS: BP 109/64
== END 2021-02-05 17:53 | disposition home or self-care (01) ==
LOC: EDUNIT# 14:51 → ER 14:53
DX: I95.9 Hypotension, unspecified (principal); R74.8 Abnormal levels of other serum enzymes; I10 Essential (primary) hypertension; F03.90 Unspecified dementia, unspecified severity, without behavioral disturbance, psychotic disturbance, mood disturbance, and anxiety; G89.29 Other chronic pain; M54.9 Dorsalgia, unspecified; Z79.891 Long term (current) use of opiate analgesic; Z79.899 Other long term (current) drug therapy; Z20.822 Contact with and (suspected) exposure to COVID-19
CPT/HCPCS: 71045; 74176; 80053; 80306; 81000; 82140; 83735; 83874; 83880; 84484; 85025; 85379; 85610; 85730; 86141; 87088; 87636; 93041; G0480; 36415; 80320; 93005

== ENCOUNTER 2021-08-14 11:47 | Emergency (ER) | payer MEDICARE ==
[~2021-08-14] VITALS: Ht 160 cm; Wt 81.6 kg
[~2021-08-14 11:47] MED LIST changes: -LISI1TAB29 PO; +LISI1TAB44 PO
--- NOTE | 2021-08-14 12:23 | ED Headache ---
General Chief Complaint: Head/Cervical Problems Stated Complaint: HEADACHE - DIZZY Source: patient, family Exam Limitations: no limitations History of Present Illness Date Seen by Provider: Aug 14, 2021 Time Seen by Provider: 12:20 Initial Comments To ER by private vehicle accompanied by sister with reports of an occipital headache for about 2 to 3 days. She has a long history of headaches but has not had one in quite some time. This recurrence concerned her sister such that she brought her to the emergency room. 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 No vomiting. No head trauma. She did not take her morning dose of diclofenac but she did take 2 of the 7.5 mg hydrocodone prior to going to [place]. She follows with pain management for chronic low back pain. This location is typical of her previous headaches. Timing/Duration: other Severity/Quality: moderate, severe Location: occipital Associated Symptoms: No confusion; nausea/vomiting; No stiff neck Allergies and Home Medications Allergies Coded Allergies: No Known Drug Allergies (Verified , 08/23/20) Patient Home Medication List Home Medication List Reviewed: Yes Atorvastatin Calcium (Atorvastatin Calcium) 20 Mg Tablet, 20 MG PO MoWeFr, (Reported) Entered as Reported by: SHAKIRA TRUJILLO on 09/20/19 1103 Buspirone HCl (Buspirone HCl) 5 Mg Tablet, 5 MG PO, (Reported) Entered as Reported by: CARLOS EDUARDO BYERS on 08/23/20 1235 Diclofenac Sodium (Diclofenac Sodium) 75 Mg Tablet.dr, 75 MG PO BID, (Reported) Entered as Reported by: SHAKIRA TRUJILLO on 09/20/19 1103 Donepezil HCl (Donepezil HCl) 10 Mg Tablet, 10 MG PO HS, (Reported) Entered as Reported by: SHAKIRA TRUJILLO on 09/20/19 1103 Ergocalciferol (Vitamin D2) (Vitamin D2) 1,250 Mcg Capsule, 1,250 MCG PO DAILY, (Reported) Entered as Reported by: CARLOS EDUARDO BYERS on 08/23/20 1235 Escitalopram Oxalate (Escitalopram Oxalate) 20 Mg Tablet, 20 MG PO DAILY, (Reported) Entered as Reported by: SHAKIRA TRUJILLO on 09/20/19 1103 Gabapentin (Gabapentin) 100 Mg Capsule, 100 MG PO HS, (Reported) Entered as Reported by: SHAKIRA TRUJILLO on 09/20/19 110 Hydrocodone/Acetaminophen (Hydrocodone-Acetamin 7.5-325) 1 Each Tablet, 1 EACH PO QID PRN for PAIN-MODERATE (5-7), (Reported) Entered as Reported by: SHAKIRA TRUJILLO on 09/20/19 110 Lisinopril/Hydrochlorothiazide (Lisinopril-Hctz 10-12.5 mg Tab) 1 Each Tablet, 1 EACH PO DAILY, (Reported) Entered as Reported by: SHAKIRA TRUJILLO on 09/20/19 110 Memantine HCl (Memantine HCl) 10 Mg Tablet, 10 MG PO BID, (Reported) Entered as Reported by: SHAKIRA TRUJILLO on 09/20/191102 Review of Systems Review of Systems Constitutional: see HPI Eyes: No Symptoms Reported Ears, Nose, Mouth, Throat: no symptoms reported Respiratory: no symptoms reported Cardiovascular: no symptoms reported Genitourinary: no symptoms reported Musculoskeletal: no symptoms reported Skin: no symptoms reported Psychiatric/Neurological: No Symptoms Reported, Headache Past Mckyitp-Hdgypz-Rhwvms Hx Immunizations Up To Date Tetanus Booster (TDap): More than 5yrs Seasonal Allergies Seasonal Allergies: No Past Medical History Surgeries: Yes (back sx, bilat knee scopes, bilat shoulder sx, left TKR, ) Gallbladder, Hysterectomy, Joint Replacement, Oophorectomy Respiratory: No Cardiac: Yes Hypertension Neurological: Yes Dementia [employer] History: Hysterectomy Genitourinary: No Gastrointestinal: No Musculoskeletal: Yes Degenerate Disk Disease, Arthritis, Chronic Back Pain Endocrine: No HEENT: No Cancer: No Psychosocial: No Integumentary: No Blood Disorders: No Physical Exam Vital Signs Vital Signs - First Documented 08/14/21 12:11 Temp 35.6 Pulse 51 Resp 13 B/P (MAP) 179/85 (116) Pulse Ox 98 O2 Delivery Nasal Cannula Capillary Refill : Height, Weight, BMI Height: 5'3.00" Weight: 160lbs. 0.0oz. [id number]; 28.00 BMI Method: General Appearance: WD/WN, no apparent distress HEENT: PERRL/EOMI, normal ENT inspection, TMs normal Neck: non-tender, full range of motion Cardiovascular: No JVD; bradycardia Respiratory: no respiratory distress, no accessory muscle use Gastrointestinal: normal bowel sounds, non tender Extremities: normal range of motion, non-tender Psychiatric: alert, oriented x 3, other (Verbal responses are delayed but she does answer questions appropriately.) Crainal Nerves: normal hearing, normal speech, PERRL Skin: normal color, warm/dry Progress/Results/Core Measures Results/Orders Lab Results Laboratory Tests Test 08/14/21 12:15 Range/Units White Blood Count 10.7 4.3-11.0 10^3/uL Red Blood Count 4.84 3.80-5.11 10^6/uL Hemoglobin 14.8 11.5-16.0 g/dL Hematocrit 45 35-52 % Mean Corpuscular Volume 93 80-99 fL Mean Corpuscular Hemoglobin 31 25-34 pg Mean Corpuscular Hemoglobin Concent 33 32-36 g/dL Red Cell Distribution Width 12.7 10.0-14.5 % Platelet Count 249 130-400 10^3/uL Mean Platelet Volume 10.7 9.0-12.2 fL Immature Granulocyte % (Auto) 0 % Neutrophils (%) (Auto) 61 42-75 % Lymphocytes (%) (Auto) 30 12-44 % Monocytes (%) (Auto) 7 0-12 % Eosinophils (%) (Auto) 1 0-10 % Basophils (%) (Auto) 1 0-10 % Neutrophils # (Auto) 6.5 1.8-7.8 10^3/uL Lymphocytes # (Auto) 3.2 1.0-4.0 10^3/uL Monocytes # (Auto) 0.8 0.0-1.0 10^3/uL Eosinophils # (Auto) 0.2 0.0-0.3 10^3/uL Basophils # (Auto) 0.1 0.0-0.1 10^3/uL Immature Granulocyte # (Auto) 0.0 0.0-0.1 10^3/uL Prothrombin Time 13.2 12.2-14.7 SEC INR Comment 1.0 0.8-1.4 Activated Partial Thromboplast Time 26 24-35 SEC Sodium Level 141 135-145 MMOL/L Potassium Level 3.8 3.6-5.0 MMOL/L Chloride Level 103 98-107 MMOL/L Carbon Dioxide Level 25 21-32 MMOL/L Anion Gap 13 5-14 MMOL/L Blood Urea Nitrogen 12 7-18 MG/DL Creatinine 0.82 0.60-1.30 MG/DL Estimat Glomerular Filtration Rate 78 BUN/Creatinine Ratio 15 Glucose Level 111 H 70-105 MG/DL Calcium Level 9.1 8.5-10.1 MG/DL Corrected Calcium 9.0 8.5-10.1 MG/DL Total Bilirubin 0.6 0.1-1.0 MG/DL Aspartate Amino Transf (AST/SGOT) 64 H 5-34 U/L Alanine Aminotransferase (ALT/SGPT) 42 0-55 U/L Alkaline Phosphatase 166 H 40-136 U/L Total Protein 6.9 6.4-8.2 GM/DL Albumin 4.1 3.2-4.5 GM/DL My Orders Orders - LEA COX APRN Protime With Inr (08/14/21 12:19) Partial Thromboplastin Time (08/14/21 12:19) Cbc With Automated Diff (08/14/21 12:19) Comprehensive Metabolic Panel (08/14/21 12:19) Ed Iv/Invasive Line Start (08/14/21 12:19) Ua Culture If Indicated (08/14/21 12:19) Ct Head Wo (08/14/21 12:19) Ketorolac Injection (Toradol Injection) (08/14/21 12:30) Prochlorperazine Injection (Compazine In (08/14/21 12:30) Diphenhydramine Injection (Benadryl Inje (08/14/21 12:30) Ns Iv 1000 Ml (Sodium Chloride 0.9%) (08/14/21 12:30) Clonidine Tablet (Catapres Tablet) (08/14/21 13:30) Medications Given in ED Current Medications Medications Dose Ordered Sig/Ariana Route Start Time Stop Time Status Last Admin Dose Admin Clonidine HCl 0.1 mg ONCE ONCE PO 08/14/21 13:30 08/14/21 13:31 DC 08/14/21 13:23 0.1 MG Diphenhydramine HCl 12.5 mg ONCE ONCE IVP 08/14/21 12:30 08/14/21 12:31 DC 08/14/21 12:31 12.5 MG Ketorolac Tromethamine 15 mg ONCE ONCE IVP 08/14/21 12:30 08/14/21 12:31 DC 08/14/21 12:33 15 MG Prochlorperazine Edisylate 5 mg ONCE ONCE IV 08/14/21 12:30 08/14/21 12:31 DC 08/14/21 12:28 5 MG Vital Signs/I&O 08/14/21 12:11 Temp 35.6 Pulse 51 Resp 13 B/P (MAP) 179/85 (116) Pulse Ox 98 O2 Delivery Nasal Cannula Departure Communication (Admissions) 1320-headache is down to a 5 out of 10. Still occipital. Her blood pressure sister typically states runs low though currently she is at 190/97 consistently. We will give her clonidine 0.[address] is unremarkable, I also just did a cervical paraspinous injection of lidocaine 1% without epinephrine. This was just lateral to the spinous process at C7 about 1 inch on either side using a 25-gauge 1-1/4 inch needle. A total of 2 mL of lidocaine was instilled on each side. Impression Primary Impression: Headache Disposition: 01 HOME, SELF-CARE Condition: Stable Departure-Patient Inst. Decision time for Depature: 12:58 Referrals: ABEL ARCHULETA MD (PCP/Family) Primary Care Physician Patient Instructions: Headache, Adult (DC) LEA COX FASHION COORDINATOR Aug 14, 2021 12:23
[2021-08-14] MEDS ORDERED: diphenhydrAMINE 50 MG/ML INJ (BENADRYL) IVP ONE (12:30)
[2021-08-14] MEDS ORDERED: NS IV 1000 ML 1,000 ML IV SCH (12:30)
[2021-08-14] MEDS ORDERED: PROCHLORPERAZINE 10 MG/2ML INJ (COMPAZINE) IV ONE (12:30)
[2021-08-14] MEDS ORDERED: KETOROLAC 30 MG/ML VIAL IVP ONE (12:30)
[2021-08-14 12:37] LABS: ALBUMIN 4.1 GM/DL (3.2-4.5); POTASSIUM 3.8 MMOL/L (3.6-5.0)
[2021-08-14 12:38] LABS: CALCIUM 9.1 MG/DL (8.5-10.1)
[2021-08-14 12:39] LABS: TOTAL PROTEIN 6.9 GM/DL (6.4-8.2)
[2021-08-14 12:41] LABS: BILIRUBIN,TOTAL 0.6 MG/DL (0.1-1.0)
[2021-08-14 12:42] LABS: BASOPHILS # (AUTO) 0.1 10^3/uL (0.0-0.1); BASOPHILS % (AUTO) 1 % (0-10); EOSINOPHILS # (AUTO) 0.2 10^3/uL (0.0-0.3); EOSINOPHILS % (AUTO) 1 % (0-10); HEMATOCRIT 45 % (35-52); HEMOGLOBIN 14.8 g/dL (11.5-16.0); LYMPHOCYTES # (AUTO) 3.2 10^3/uL (1.0-4.0); LYMPHOCYTES % (AUTO) 30 % (12-44); MEAN CORPUSCULAR HEMOGLOBIN 31 pg (25-34); MEAN CORPUSCULAR HGB CONC 33 g/dL (32-36); MEAN CORPUSCULAR VOLUME 93 fL (80-99); MEAN PLATELET VOLUME 10.7 fL (9.0-12.2); MONOCYTES # (AUTO) 0.8 10^3/uL (0.0-1.0); MONOCYTES % (AUTO) 7 % (0-12); NEUTROPHILS # (AUTO) 6.5 10^3/uL (1.8-7.8); NEUTROPHILS % (AUTO) 61 % (42-75); PLATELET COUNT 249 10^3/uL (130-400); WHITE BLOOD COUNT 10.7 10^3/uL (4.3-11.0)
[2021-08-14 12:43] LABS: CREATININE SERUM 0.82 MG/DL (0.60-1.30)
[2021-08-14 12:47] LABS: PROTHROMBIN TIME PATIENT 13.2 SEC (12.2-14.7)
--- NOTE | 2021-08-14 12:48 | Diagnostic Imaging Report ---
PROCEDURE: CT head without contrast. TECHNIQUE: Multiple contiguous axial images were obtained through the brain without the use of intravenous contrast. Auto Exposure Controls were utilized during the CT exam to meet ALARA standards for radiation dose reduction. INDICATION: Headache. FINDINGS: Ventricles and sulci are within normal limits for size. There is no intracranial hemorrhage identified. There is no abnormal mass effect or shift of midline structures. There is atherosclerotic calcification within the distal internal carotid and vertebral arteries. Paranasal sinuses, middle ear cavities, and mastoid air cells are clear. IMPRESSION: Unremarkable CT of the head. Dictated by: Dictated on workstation # [id number]
[2021-08-14] MEDS ORDERED: cloNIDine 0.1 MG (CATAPRES) TAB PO ONE (13:30)
[2021-08-14 14:05] VITALS: BP 172/83
== END 2021-08-14 14:09 | disposition home or self-care (01) ==
LOC: EDUNIT# 11:47 → ER 11:48
DX: R51.9 Headache, unspecified (principal); G89.29 Other chronic pain; M54.50 Low back pain, unspecified
CPT/HCPCS: 36415; 64450; 70450; 80053; 85025; 85610; 85730

== ENCOUNTER → 2021-08-28 | Outpatient (CLI) | payer MEDICARE ==
--- NOTE | 2021-08-28 15:59 | Diagnostic Imaging Report ---
INDICATION: Routine screening. COMPARISON: 07/13/2019 and 08/13/2017. TECHNIQUE: 2D and 3D bilateral screening mammography was performed with CAD. FINDINGS: Scattered fibroglandular densities are identified bilaterally. Benign-appearing nodular densities in the right breast appear stable. There are benign calcifications bilaterally. No spiculated mass or malignant-appearing microcalcifications are seen. The axillae are unremarkable. IMPRESSION: No mammographic features suspicious for malignancy are identified. ACR BI-RADS Category 2: Benign findings. Result letter will be mailed to the patient. Note: At least 10% of breast cancer is not imaged by mammography. Dictated by: Dictated on workstation # [id number]
== END ==
LOC: RAD 11:15
PROVIDERS: ATTEND Nurse Practitioner Family
DX: Z12.31 Encounter for screening mammogram for malignant neoplasm of breast (principal)
CPT/HCPCS: 77063; 77067

== ENCOUNTER → 2021-09-25 | Outpatient (CLI) | payer MEDICARE | LOC: CARD 09:22 | PROVIDERS: ATTEND Internal Medicine Cardiovascular Disease | DX: I34.8 Other nonrheumatic mitral valve disorders (principal); I10 Essential (primary) hypertension | CPT/HCPCS: 93306 ==

== ENCOUNTER → 2021-12-19 | Outpatient (CLI) | payer MEDICARE ==
[~2021-12-19] MED LIST changes: +BARIUM SUSPENSION 2.1% (VANILLA SILQ) 450 ML PO ONE; +CATHETER FLUSH 10 ML SYR IV PRN; +HOLD METFORMIN - RECEIVED CONTRAST 20 ML VIAL IV SCH; +IOHEXOL 350 MG/ML 100 ML (OMNIPAQUE 350) VIAL IV ONE; +NS 100 ML (IVPB) BAG IV ONE
--- NOTE | 2021-12-19 10:52 | Diagnostic Imaging Report ---
PROCEDURE: CT chest, abdomen, and pelvis with contrast. TECHNIQUE: Multiple contiguous axial images were obtained through the chest, abdomen, and pelvis after the administration of intravenous contrast. Auto Exposure Controls were utilized during the CT exam to meet ALARA standards for radiation dose reduction. INDICATION: Unexplained weight loss. History of smoking now with abdominal pain and change in bowel habits. Compared with the CT abdomen pelvis dated 02/05/2021, most recent chest CT is dated 01/16/2021 also used as comparison. CHEST: No suspicious lung mass. No dominant pulmonary nodule. Micronodule subpleural measured 5 mm and left, stable chronic and benign. There is no axillary, hilar or mediastinal lymphadenopathy. There are no findings of pulmonary edema or pneumonia. No acute or suspect soft tissue or osseous chest wall pathology. The thoracic aorta is nonaneurysmal. There is no pleural or pericardial effusion. Some slight atelectasis. Left base anteriorly at the caudal aspect of the lingular segment felt incidental. Abdomen pelvis: No findings of an enhancing solid or suspicious liver mass. No bile duct dilatation. There is enhancement of the hepatic and portal veins with a minute right lobe cyst laterally incidental. Spleen size stable and normal. Within its lower pole medially there is a hypoenhancing focus measuring about 1.5 cm, this is of uncertain significance in etiology. The previous exams were limited by the absence of administered contrast and this may very well be a chronic finding. No splenic rupture. Unobstructed kidneys appeared normal. The adrenals are negative. 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 No arterial or venous thrombus. There are findings consistent with multiple uterine fibroids without organomegaly. There is no adnexal lesion. There is no small or large bowel obstruction. There is no abdominal, pelvic, mesenteric or retroperitoneal adenopathy. No ascites. No omental infiltration. There is no bowel, biliary or urinary tract obstruction. There is degenerative changes to the spine with previous decompression. No acute or suspicious osseous pathology. IMPRESSION: CHEST: No findings of metastatic disease or acute cardiopulmonary abnormality. Abdomen pelvis: Stable benign liver cyst, indeterminate 1.5 cm splenic hypodensity likely incidental with no organomegaly or rupture. No ascites or omental infiltration, adenopathy or findings felt suggestive of metastatic disease. Nodularity and heterogeneity of the uterus presumptively reflective of underlying fibroids. Dictated by: Dictated on workstation # [id number]
== END ==
LOC: RAD 08:35
PROVIDERS: ATTEND Family Medicine
DX: K76.89 Other specified diseases of liver (principal); N85.8 Other specified noninflammatory disorders of uterus; Z87.891 Personal history of nicotine dependence
CPT/HCPCS: 71260; 74177

== ENCOUNTER 2022-05-01 15:41 | Emergency (ER) | payer MEDICARE ==
[~2022-05-01] VITALS: Ht 160 cm; Wt 80.0 kg
[~2022-05-01 15:41] MED LIST changes: -BARIUM SUSPENSION 2.1% (VANILLA SILQ) 450 ML PO ONE; -CATHETER FLUSH 10 ML SYR IV PRN; -HOLD METFORMIN - RECEIVED CONTRAST 20 ML VIAL IV SCH; -IOHEXOL 350 MG/ML 100 ML (OMNIPAQUE 350) VIAL IV ONE; -NS 100 ML (IVPB) BAG IV ONE
--- NOTE | 2022-05-01 17:05 | ED General ---
General Chief Complaint: Dizziness/Syncope Stated Complaint: DIZZY,TROUBLE WALKING,DIMENTIA Nursing Triage Note: PT TO [facility] OF DIZZINESS AND WEAKNESS, PT WEARS O2 @ 3L PER N/C AT HOME. HAS DEMENTIA AND SISTER CARES FOR HER Source of Information: Patient, Family Exam Limitations: No Limitations History of Present Illness Date Seen by Provider: May 01, 2022 Time Seen by Provider: 16:56 Allergies and Home Medications Allergies Coded Allergies: No Known Drug Allergies (Verified , 08/23/20) Patient Home Medication List Atorvastatin Calcium (Atorvastatin Calcium) 20 Mg Tablet, 20 MG PO MoWeFr, (Reported) Entered as Reported by: SHAKIRA TRUJILLO on 09/20/19 1103 Buspirone HCl (Buspirone HCl) 5 Mg Tablet, 5 MG PO, (Reported) Entered as Reported by: CARLOS EDUARDO BYERS on 08/23/20 1235 Diclofenac Sodium (Diclofenac Sodium) 75 Mg Tablet.dr, 75 MG PO BID, (Reported) Entered as Reported by: SHAKIRA TRUJILLO on 09/20/19 1103 Donepezil HCl (Donepezil HCl) 10 Mg Tablet, 10 MG PO HS, (Reported) Entered as Reported by: SHAKIRA TRUJILLO on 09/20/19 1103 Ergocalciferol (Vitamin D2) (Vitamin D2) 1,250 Mcg Capsule, 1,250 MCG PO DAILY, (Reported) Entered as Reported by: CARLOS EDUARDO BYERS on 08/23/20 1235 Escitalopram Oxalate (Escitalopram Oxalate) 20 Mg Tablet, 20 MG PO DAILY, (Reported) Entered as Reported by: SHAKIRA TRUJILLO on 09/20/19 1103 Gabapentin (Gabapentin) 100 Mg Capsule, 100 MG PO HS, (Reported) Entered as Reported by: SHAKIRA TRUJILLO on 09/20/19 1103 Hydrocodone/Acetaminophen (Hydrocodone-Acetamin 7.5-325) 1 Each Tablet, 1 EACH PO QID PRN for PAIN-MODERATE (5-7), (Reported) Entered as Reported by: SHAKIRA TRUJILLO on 09/20/19 1103 Lisinopril/Hydrochlorothiazide (Lisinopril-Hctz 10-12.5 mg Tab) 1 Each Tablet, 1 EACH PO DAILY, (Reported) Entered as Reported by: SHAKIRA TRUJILLO on 09/20/19 1103 Memantine HCl (Memantine HCl) 10 Mg Tablet, 10 MG PO BID, (Reported) Entered as Reported by: SHAKIRA TRUJILLO on 09/20/19 1103 Past Bczbwtr-Jccdzd-Vrbpek Hx Patient Social History Tobacco Use?: Yes Tobacco type used: Cigarettes Smoking Status: Current Someday Smoker Substance use?: No Alcohol Use?: No Pt feels they are or have been: No Immunizations Up To Date Tetanus Booster (TDap): More than 5yrs Influenza Vaccine Up-to-Date: Yes; Up-to-Date First/Initial COVID19 Vaccinat: YES Second COVID19 Vaccination Mino: YES Seasonal Allergies Seasonal Allergies: No Past Medical History Surgery/Hospitalization HX: HTN, GB, HYST,KNEE SURGIES, SHOULDER SURGERIES, BACK SURG Surgeries: Yes (back sx, bilat knee scopes, bilat shoulder sx, left TKR, ) Gallbladder, Hysterectomy, Joint Replacement, Oophorectomy Respiratory: No Cardiac: Yes Hypertension 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 0.0oz. 72.496343dw; 31.00 BMI Method: Progress/Results/Core Measures Suspected Sepsis SIRS Temperature: Pulse: 58 Respiratory Rate: 18 Blood Pressure 127 /83 Mean: 98 Results/Orders My Orders Orders - PEG BUNCH APRN Ekg Tracing (05/01/22 16:38) Vital Signs/I&O 05/01/22 16:05 Pulse 58 Resp 18 B/P (MAP) 127/83 (98) Pulse Ox 95 Capillary Refill : Less Than 3 Seconds Blood Pressure Mean: 98 Departure Impression Primary Impression: Weakness Disposition: 01 HOME, SELF-CARE Condition: Improved Departure-Patient Inst. Referrals: ABEL ARCHULETA MD (PCP/Family) Primary Care Physician Patient Instructions: Weakness ED Add. Discharge Instructions: Plan: 1. Return for any other new, concerning, or worsening symptoms. All discharge instructions reviewed with patient and/or family. Voiced understanding. 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
[2022-05-01 17:31] VITALS: BP 127/83
== END 2022-05-01 17:21 | disposition home or self-care (01) ==
LOC: EDUNIT# 15:41 → ER 15:43
DX: R53.1 Weakness (principal); F17.210 Nicotine dependence, cigarettes, uncomplicated
CPT/HCPCS: 93005

== ENCOUNTER → 2022-09-10 | Outpatient (CLI) | payer MEDICARE ==
[~2022-09-10] MED LIST changes: +HOLD METFORMIN - RECEIVED CONTRAST 20 ML VIAL IV SCH; +IOHEXOL 350 MG/ML 100 ML (OMNIPAQUE 350) VIAL IV ONE; +NS 100 ML (IVPB) BAG IV ONE
[2022-09-10 17:37] LABS: CREATININE SERUM 0.8 MG/DL (0.60-1.30)
--- NOTE | 2022-09-10 20:04 | Diagnostic Imaging Report ---
PROCEDURE: CT abdomen with contrast only. TECHNIQUE: Multiple contiguous axial images were obtained through the abdomen after the administration of intravenous contrast. Auto Exposure Controls were utilized during the CT exam to meet ALARA standards for radiation dose reduction. INDICATION: Follow-up splenic lesion. FINDINGS: Spleen size nonfocal and normal, unchanged from 12/19/2021. Lower pole regional hypodensity measuring 1.5 cm, unchanged from prior. No new abnormality. The liver is unremarkable. 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 The atherosclerotic aorta is nonaneurysmal. Some mild postcholecystectomy biliary ectasia stable. Tiny cyst in the right hepatic lobe, stable. The adrenals are negative. The kidneys are unobstructed. There is no lymphadenopathy. The large and small bowel of the abdomen unobstructed, nonacute and nonfocal. IMPRESSION: Stable presumed benign splenic lesion. No acute or suspicious abdominal pathology. No change. Dictated by: Dictated on workstation # [id number]
== END ==
LOC: RAD 08:45
PROVIDERS: ATTEND Family Medicine
DX: D73.89 Other diseases of spleen (principal)
CPT/HCPCS: 36415; 74160; 82565; 84520

== ENCOUNTER → 2023-01-24 | Outpatient (CLI) | payer MEDICARE ==
[~2023-01-24] MED LIST changes: -HOLD METFORMIN - RECEIVED CONTRAST 20 ML VIAL IV SCH; -IOHEXOL 350 MG/ML 100 ML (OMNIPAQUE 350) VIAL IV ONE; -NS 100 ML (IVPB) BAG IV ONE
--- NOTE | 2023-01-24 14:06 | Diagnostic Imaging Report ---
Indication: Routine screening. Comparison is made with prior mammogram from 08/28/2021 and 07/13/2019. 2-D and 3-D bilateral screening mammography was performed with CAD. The current study was also evaluated with a Computer Aided Detection (CAD) system. Scattered fibroglandular densities are identified bilaterally. The parenchymal pattern is stable. No mass or malignant-appearing microcalcifications are seen. There are benign calcifications bilaterally. Axillae are unremarkable. IMPRESSION: BI-RADS Category 2 No mammographic features suspicious for malignancy are identified. ACR BI-RADS Category 2: Benign findings. Result letter will be mailed to the patient. Note: At least 10% of breast cancer is not imaged by mammography. Dictated by: Dictated on workstation # [id number]
== END ==
LOC: RAD 10:47
PROVIDERS: ATTEND Family Medicine
DX: Z12.31 Encounter for screening mammogram for malignant neoplasm of breast (principal)
CPT/HCPCS: 77063; 77067